=== PATIENT | male | born 1935 | race Caucasian/White ===

== ENCOUNTER → 2016-07-20 | Outpatient (CLI) | payer OTHER ==
[~2016-07-20] MED LIST: ASPCH81 PO; ATOR-26 PO; CLTP PO; LISI5TAB3 PO; METO25TA3 PO; NTRGSL/4 UT; PRLSR20 PO
--- NOTE | 2016-07-20 10:58 | DIAGNOSTIC IMAGING REPORT ---
PET/CT CLINICAL HISTORY: Lymphoma. COMPARISON STUDY PET/CT dated 04/06/2016. TECHNIQUE: One hour following the IV administration of 15.15 mCi of F-18 FDG, PET/CT examination was performed from the orbital meatal line through the bony pelvis. Noncontrast CT is performed for the purposes of anatomic correlation and attenuation correction. Note that this does not reflect a diagnostic CT examination. Images were reviewed on a separate [employer] independent workstation. Fused images were obtained. Standard uptake values reported are maximum values within the region of interest expressed in gm/mL. FINDINGS: PET FINDINGS: Head and neck: There is expected physiologic activity within the visualized brain parenchyma at the skull base and the salivary glands. There is unchanged size of a small and minimally FDG avid left cervical chain lymph node deep to the sternocleidomastoid muscle seen on image #24. This measures up to 8 mm and shows a maximum SUV of 1.4. The degree of FDG localization appears modestly improved from previous. No additional FDG avid cervical lymph nodes are identified. Thorax: Evaluation of the thorax demonstrates expected physiologic myocardial activity. There are foci of FDG localization present within both leon. There is no clear corresponding lymphadenopathy on the low-dose CT images and this is indeterminant. This demonstrates a maximum SUV of 4.7 on the left and 3.6 on the right. Foci of subcarinal activity localizes to the esophagus and likely represent salivary activity. Abdomen and pelvis: There is expected activity within the liver, spleen, kidneys, renal collecting system, and bladder. Low-level bowel activity is likely within physical limits. There is abnormal infiltrative soft tissue in the right renal hilum extending towards the right renal pelvis. Although difficult to measure, this appears unchanged from 04/06/2016. This measures a maximum of 2.2 cm in AP diameter at the renal pelvis. This is markedly FDG avid.] SUV is difficult to assessed due to adjacent excreted urinary activity but measures over 20. There is unchanged abnormal soft tissue seen anteriorly to the T9 and T10 vertebral bodies as seen on image #106. This measures 3.7 x 1.6 cm and is FDG avid with a maximum SUV of 5.8 (previously measured 3.7 x 1.7 cm with a maximum SUV of 5.6). There are new and FDG avid retroperitoneal implants as compared to 04/06/2016. A account services representative lesion is seen posterior to the ascending colon on image #162 and measures 0.8 x 2.6 cm. This is FDG avid with a maximum SUV of 3.8. An additional peritoneal lesion is seen in the left lower quadrant on image #170 measuring 2.3 x 1.4. This demonstrates a maximum SUV of 5.6. A mildly FDG avid portacaval node is seen on image 131 measures 0.8 x 1.7 cm. This demonstrates a maximum SUV of 3.3. Unenhanced CT images: Partially visualized brain parenchyma at the skull base is normal in appearance. The bony orbits are grossly intact. Orbital contents are normal in appearance noting bilateral ocular lens implants. The visualized paranasal sinuses and the mastoid air cells are clear. The salivary and thyroid glands are within normal limits. There is atherosclerotic calcification of the carotid bulbs. Mild ectasia of the ascending thoracic aorta is unchanged. This measures up to 4.5 cm. The remainder of the thoracic aorta is normal in caliber. The heart is mildly enlarged and without pericardial effusion. The coronary arteries are densely calcified. Emphysema is observed. Mild apical scarring is noted. No airspace consolidation or pleural effusion is seen. There is dependent atelectasis. A 3 mm subpleural nodule in the right middle lobe on image #98 and a 4 mm right apical nodule on image #61 are unchanged and too small for PET characterization. No concerning pulmonary lesion is identified. Small fat-containing Bochdalek hernias are again noted. A subcentimeter hypodensity in the right hepatic lobe seen on image #129 is unchanged. The unenhanced liver otherwise grossly unremarkable. There are numerous calcified splenic granulomas. The spleen is normal in size measuring up to 9 cm. The unenhanced adrenal glands are grossly normal. The pancreas is atrophic. The kidneys demonstrate cortical atrophy and are without hydronephrosis. See above under PET findings for assessment of right renal abnormality. The abdominal aorta is normal in course and caliber noting moderate to advanced atherosclerotic calcification. There is no bowel obstruction. Mild colonic fecal retention is observed. No intraperitoneal free air or abdominal ascites is identified. The prostate gland is mildly enlarged. The bladder and seminal vesicles are normal in appearance. A calcification in the midline pelvis is unchanged and of doubtful significance. There is a small fat-containing right inguinal hernia. The skeletal structures are osteopenic. No lytic or blastic lesions are identified. Degenerative change and scoliosis are noted throughout the thoracolumbar spine. IMPRESSION: 1. Overall modest progression of disease as compared to 03/29/2016 as detailed above, with new and FDG avid retroperitoneal lesions. 2. Additional lesions seen on 04/06/2016 have not significantly changed. 3. There is bilateral hilar activity with no clear lesion identified on the low-dose CT images. Hilar involvement is not excluded.. 4. The spleen is normal in size. 5. Mild cardiomegaly and emphysema. 6. Ectasia of the ascending thoracic aorta is unchanged and measures up to 4.5 cm. 7. Additional findings as above. Electronically signed by: Armen Alva M.D. 07/20/2016 10:56 AM Dictated Date/Time: 07/20/2016 10:27 AM
== END | disposition home or self-care (01) ==
LOC: C.PET 07:56
PROVIDERS: ATTEND Internal Medicine Hematology
DX: C82.53 Diffuse follicle center lymphoma, intra-abdominal lymph nodes (principal)

== ENCOUNTER → 2016-09-28 | Outpatient (CLI) | payer OTHER ==
[2016-09-28 13:53] VITALS: BP 144/91; PULSE 68; TEMP 36.7; O2SAT 98
--- NOTE | 2016-09-28 14:33 | Radiation Oncology Follow-Up ---
Radiation Oncology Follow-Up Date of Visit Sep 28, 2016. 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 Brunner is a 79-year-old gentleman who was previously diagnosed with a low- grade B-cell lymphoma involving the right retroperitoneal lymph node adjacent to the right renal hilum. The patient was initially having routine imaging done for his thoracic aortic aneurysm and he did have a scan in July 2013 which did show adenopathy in his abdomen. He did undergo an FNA biopsy of the right retroperitoneal lymph node on 09/17/2013 which did reveal a low-grade B- cell lymphoma. He did have an initial PET/CT scan (report unavailable) on 08/21 and he did have a repeat PET CT scan on 12/11/2013 which did show an interval decrease in the size and FDG avidity activity of the retrocrural and retroperitoneal lymph nodes as well as the mesenteric mass adjacent to the distal transverse colon. Dr. Shelton to discuss treatment options with the patient in the patient refused chemotherapy and elected for observation. The patient then subsequently was lost to follow-up and then recently seen again evaluation. He did have a repeat staging scan completed on 09/23/2015 which revealed an interval increase in a soft tissue mass infiltrating the right renal hilum consistent with focal lymphoma. The mass measured 4 cm in the greatest dimension and previously measured 2.4 cm in June 2014. The rest of the staging scans were essentially negative for involvement of lymphoma. Dr. Shelton saw the patient again in consultation and discussed treatment options including radiation therapy and systemic therapy. Due to the patient's multiple comorbidities, Dr. Shelton recommended consideration of radiation therapy upfront and the patient agreed with this based on his lack of interest in systemic therapy. We are now seeing the patient in consultation discuss the role of radiation therapy. Currently, the patient is doing relatively well overall. He denies any fevers, chills or night sweats. He states his energy, appetite and weight are all stable. He is able to perform all basic and advanced daily activities of living. He has no current symptoms at this point. He underwent radiation therapy to the right renal hilum from 12/08/2015 to 01/05. He received 3000 cGy. (Susan Santiago PA-C) Interim History He denies any changes in the past 6 months. He does continue to have night sweats. He describes this as his T-shirt being wet. He does not describe drenching sweats. His appetite is good and weight is stable. His had no problems with decreasing weight. Following his last visit he was sent for a PET /CT. This was performed 07/20/2016. Showed overall moderate progression of disease as compared to 03/29/2016. New and FDG avid retroperitoneal lesions. Additional lesions were seen on 04/06/2016 that have not significantly changed. There is bilateral hilar activity with no clear lesion identified on the low dose CT images. Hilar involvement is not excluded. Spleen is normal in size. Mild cardiomegaly and emphysema. Ectasia of the ascending aorta is unchanged and measures 4.5 cm. The patient was to follow-up with Dr. Shelton. He failed to keep his appointment on several occasions. Dr. Shelton now declines to see him back. He was also to see his primary care physician and was a no-show on . (Susan Santiago PA-C) Allergies Coded Allergies: No Known Allergies (Verified , 01/09/12) Home Medications Scheduled Aspirin (Aspirin Tab-Chewable *), 81 MG PO DAILY Atorvastatin (Lipitor), 1 TAB PO DAILY Calcium/Vitamin D (Caltrate 600 Plus *), 1 TAB PO DAILY Lisinopril (Zestril), 5 MG PO DAILY Metoprolol Succ (Toprol Xl) (Toprol-Xl), 12.5 MG PO DAILY Nitroglycerin (Nitrostat), 0.4 MG UT PRN Omeprazole (Prilosec), 20 MG PO DAILY Review of Systems Gastrointestinal: Symptoms: WNL Oral: Symptoms: No Problems Respiratory: Symptoms: WNL Urinary: Symptoms: Nocturia Comments: occ nocturia Skin: Symptoms: No Problems (Susan Santiago PA-C) Physical Exam Vital Signs Date Time Temp Pulse Resp B/P (MAP) Pulse Ox O2 Delivery O2 Flow Rate FiO2 09/28/16 13:53 36.7 68 20 144/91 98 Pain: Side: Bilateral Patient Pain Scale: 0 - 10 Initial Pain Intensity: 0.0 Fatigue: None General Appearance: no apparent distress Eyes: normal inspection, EOMI ENT: normal ENT inspection, hearing grossly normal Neck: supple, no adenopathy, thyroid normal Respiratory/Chest: lungs clear, no respiratory distress, no accessory muscle use Cardiovascular: regular rate, rhythm, no gallop, no murmur Abdomen: non tender, soft, no organomegaly Extremities: no pedal edema Neurologic/Psychiatric: no motor/sensory deficits, alert, normal mood/affect Skin: warm/dry (Susan Santiago PA-C) Additional Studies Patient: CRYSTAL BRUNNER Address1: [address] [place] [address] Rec: [id number] Address2: Acct ID: [id number] [facility] Zip: [place] [address] Date: 1935 Sex: M Room/Bed: Ref Phy: Remberto Lorenzo D.O. SC: C.PET Att Phy: Yves Shelton M.D. Report #: [id number] [place] Phy: Remberto Lorenzo D.O. Test: PETCTST Admit Phy: Veterinary X Ray Operator: NATASHA Interpreting Phy: Armen Alva M.D. Diagnosis: LYMPHOMA Ordering Phy: Yves Shelton M.D. Service Date: 07/20/16 Admit Date: 07/20/16 MNE: [id number] CONF: DICTATED BY: Armen Alva M.D.]] CC: Remberto Lorenzo D.O. Wolfe, David W., M.D. Endcc: [~ rep ct add3]] PET/CT CLINICAL HISTORY: Lymphoma. COMPARISON STUDY PET/CT dated 04/06/2016. TECHNIQUE: One hour following the IV administration of 15.15 mCi of F-18 FDG, PET/CT examination was performed from the orbital meatal line through the bony pelvis. Noncontrast CT is performed for the purposes of anatomic correlation and attenuation correction. Note that this does not reflect a diagnostic CT examination. Images were reviewed on a separate [employer] independent workstation. Fused images were obtained. Standard uptake values reported are maximum values within the region of interest expressed in gm/mL. FINDINGS: PET FINDINGS: Head and neck: There is expected physiologic activity within the visualized brain parenchyma at the skull base and the salivary glands. There is unchanged size of a small and minimally FDG avid left cervical chain lymph node deep to the sternocleidomastoid muscle seen on image #24. This measures up to 8 mm and shows a maximum SUV of 1.4. The degree of FDG localization appears modestly improved from previous. No additional FDG avid cervical lymph nodes are identified. Thorax: Evaluation of the thorax demonstrates expected physiologic myocardial activity. There are foci of FDG localization present within both leon. There is no clear corresponding lymphadenopathy on the low-dose CT images and this is indeterminant. This demonstrates a maximum SUV of 4.7 on the left and 3.6 on the right. Foci of subcarinal activity localizes to the esophagus and likely represent salivary activity. Abdomen and pelvis: There is expected activity within the liver, spleen, kidneys, renal collecting system, and bladder. Low-level bowel activity is likely within physical limits. There is abnormal infiltrative soft tissue in the right renal hilum extending towards the right renal pelvis. Although difficult to measure, this appears unchanged from 04/06/2016. This measures a maximum of 2.2 cm in AP diameter at the renal pelvis. This is markedly FDG avid.] SUV is difficult to assessed due to adjacent excreted urinary activity but measures over 20. There is unchanged abnormal soft tissue seen anteriorly to the T9 and T10 vertebral bodies as seen on image #106. This measures 3.7 x 1.6 cm and is FDG avid with a maximum SUV of 5.8 (previously measured 3.7 x 1.7 cm with a maximum SUV of 5.6). There are new and FDG avid retroperitoneal implants as compared to 04/06/2016. A customer sales representative lesion is seen posterior to the ascending colon on image #162 and measures 0.8 x 2.6 cm. This is FDG avid with a maximum SUV of 3.8. An additional peritoneal lesion is seen in the left lower quadrant on image #170 measuring 2.3 x 1.4. This demonstrates a maximum SUV of 5.6. A mildly FDG avid portacaval node is seen on image 131 measures 0.8 x 1.7 cm. This demonstrates a maximum SUV of 3.3. Unenhanced CT images: Partially visualized brain parenchyma at the skull base is normal in appearance. The bony orbits are grossly intact. Orbital contents are normal in appearance noting bilateral ocular lens implants. The visualized paranasal sinuses and the mastoid air cells are clear. The salivary and thyroid glands are within normal limits. There is atherosclerotic calcification of the carotid bulbs. Mild ectasia of the ascending thoracic aorta is unchanged. This measures up to 4.5 cm. The remainder of the thoracic aorta is normal in caliber. The heart is mildly enlarged and without pericardial effusion. The coronary arteries are densely calcified. Emphysema is observed. Mild apical scarring is noted. No airspace consolidation or pleural effusion is seen. There is dependent atelectasis. A 3 mm subpleural nodule in the right middle lobe on image #98 and a 4 mm right apical nodule on image #61 are unchanged and too small for PET characterization. No concerning pulmonary lesion is identified. Small fat-containing Bochdalek hernias are again noted. A subcentimeter hypodensity in the right hepatic lobe seen on image #129 is unchanged. The unenhanced liver otherwise grossly unremarkable. There are numerous calcified splenic granulomas. The spleen is normal in size measuring up to 9 cm. The unenhanced adrenal glands are grossly normal. The pancreas is atrophic. The kidneys demonstrate cortical atrophy and are without hydronephrosis. See above under PET findings for assessment of right renal abnormality. The abdominal aorta is normal in course and caliber noting moderate to advanced atherosclerotic calcification. There is no bowel obstruction. Mild colonic fecal retention is observed. No intraperitoneal free air or abdominal ascites is identified. The prostate gland is mildly enlarged. The bladder and seminal vesicles are normal in appearance. A calcification in the midline pelvis is unchanged and of doubtful significance. There is a small fat-containing right inguinal hernia. The skeletal structures are osteopenic. No lytic or blastic lesions are identified. Degenerative change and scoliosis are noted throughout the thoracolumbar spine. IMPRESSION: 1. Overall modest progression of disease as compared to 03/29/2016 as detailed above, with new and FDG avid retroperitoneal lesions. 2. Additional lesions seen on 04/06/2016 have not significantly changed. 3. There is bilateral hilar activity with no clear lesion identified on the low-dose CT images. Hilar involvement is not excluded.. 4. The spleen is normal in size. 5. Mild cardiomegaly and emphysema. 6. Ectasia of the ascending thoracic aorta is unchanged and measures up to 4.5 cm. 7. Additional findings as above. Electronically signed by: Armen Alva M.D. 07/20/2016 10:56 AM Dictated Date/Time: 07/20/2016 10:27 AM (Susan Santiago PA-C) Assessment & Plan Plan: The patient is also seen and examined by Dr. Mayer. We have advised him that he needs to follow-up with medical oncology and his primary care physician. He is currently not having any acute difficulties. An appointment will be scheduled for him to see . We are going to schedule him an appointment to see Dr. Mayer in medical oncology. We asked him to return to our office in 6 months. He may call if he has any questions or concerns in the interim. We have emphasized the importance in keeping these appointments. He stated previously Dr. Shelton had discussed the use of chemotherapy if needed. He will need to follow with medical oncology. He stated that he had missed previous appointments because he does not get reminder notifications by phone or in the mail. (Susan Santiago PA-C) I agree with note created by Susan Santiago PA-C. I reviewed the patient's chart and information with her. I have examined and evaluated the patient. I reviewed relevant clinical information and answered the patient's and/or family' s questions. (Veeral. Mayer MD) Total Time In Follow-Up We spent 25 minutes speaking to the patient and performing examination. I spent 15 minutes reviewing information in completing this note. (Susan Santiago PA-C) I spent 15 minutes examining and counseling the patient. (Veeral. Mayer MD) Copy To Marcial Mayer M.D.; Remberto Lorenzo D.O.
== END | disposition home or self-care (01) ==
LOC: C.ONC 13:42
PROVIDERS: ATTEND Physician Assistant Medical
DX: Z08 Encounter for follow-up examination after completed treatment for malignant neoplasm (principal); Z92.3 Personal history of irradiation; Z85.72 Personal history of non-Hodgkin lymphomas

== ENCOUNTER → 2017-03-30 | Outpatient (CLI) | payer OTHER ==
[2017-03-30 13:11] VITALS: BP 152/76; PULSE 50; TEMP 36.5; O2SAT 98
--- NOTE | 2017-03-30 13:41 | Radiation Oncology Follow-Up ---
Radiation Oncology Follow-Up Date of Visit Mar 30, 2017. 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 Brunner was previously diagnosed with a low-grade B-cell lymphoma involving the right retroperitoneal lymph node adjacent to the right renal hilum. The patient was initially having routine imaging done for his thoracic aortic aneurysm and he did have a scan in July 2013 which did show adenopathy in his abdomen. He did undergo an FNA biopsy of the right retroperitoneal lymph node on 09/17/2013 which did reveal a low-grade B-cell lymphoma. He did have an initial PET/CT scan (report unavailable) on 08/21/2013 and he did have a repeat PET CT scan on 12/11/2013 which did show an interval decrease in the size and FDG avidity activity of the retrocrural and retroperitoneal lymph nodes as well as the mesenteric mass adjacent to the distal transverse colon. Dr. Shelton to discuss treatment options with the patient in the patient refused chemotherapy and elected for observation. The patient then subsequently was lost to follow- up and then recently seen again evaluation. He did have a repeat staging scan completed on 09/23/2015 which revealed an interval increase in a soft tissue mass infiltrating the right renal hilum consistent with focal lymphoma. The mass measured 4 cm in the greatest dimension and previously measured 2.4 cm in June 2014. The rest of the staging scans were essentially negative for involvement of lymphoma. Dr. Shelton saw the patient again in consultation and discussed treatment options including radiation therapy and systemic therapy. Due to the patient's multiple comorbidities, Dr. Shelton recommended consideration of radiation therapy upfront and the patient agreed with this based on his lack of interest in systemic therapy. We are now seeing the patient in consultation discuss the role of radiation therapy. Currently, the patient is doing relatively well overall. He denies any fevers, chills or night sweats. He states his energy, appetite and weight are all stable. He is able to perform all basic and advanced daily activities of living. He has no current symptoms at this point. He underwent radiation therapy to the right renal hilum from 12/08/2015 to 01/05. He received 3000 cGy. Interim History He's been doing well over the past 6 months. He'll have some feelings of warmth at night but denies any problems with sweating. His appetite is good and weight is stable. He is now followed by Dr. Mayer in medical oncology. He saw him in October 2016. He is currently on observation. He had recheck laboratory studies that were stable. He denies any flank pain. He has had no abdominal pain. He does have some mild low back pain. This occurs in the morning when he first wakes up. The pain can be around level IV. This resolves within 15-20 minutes. He does not require any [id number] prescriptive pain medications. He is very active he continues to work outside. 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 Allergies Coded Allergies: No Known Allergies (Verified , 01/09/12) Home Medications Scheduled Aspirin (Aspirin Tab-Chewable *), 81 MG PO DAILY Atorvastatin (Lipitor), 1 TAB PO DAILY Calcium/Vitamin D (Caltrate 600 Plus *), 1 TAB PO DAILY Lisinopril (Zestril), 5 MG PO DAILY Metoprolol Succ (Toprol Xl) (Toprol-Xl), 12.5 MG PO DAILY Nitroglycerin (Nitrostat), 0.4 MG UT PRN Omeprazole (Prilosec), 20 MG PO DAILY Review of Systems Gastrointestinal: Symptoms: WNL Oral: Symptoms: No Problems Respiratory: Symptoms: WNL Urinary: Symptoms: WNL Skin: Symptoms: No Problems Physical Exam Vital Signs Date Time Temp Pulse Resp B/P (MAP) Pulse Ox O2 Delivery O2 Flow Rate FiO2 03/30/17 13:11 36.5 50 18 152/76 98 Fatigue: None General Appearance: no apparent distress Eyes: normal inspection, EOMI ENT: normal ENT inspection, hearing grossly normal Neck: no adenopathy, thyroid normal Respiratory/Chest: lungs clear, no respiratory distress, no accessory muscle use Cardiovascular: regular rate, rhythm, no gallop, no murmur Abdomen: non tender, soft, no organomegaly Extremities: no pedal edema Neurologic/Psychiatric: no motor/sensory deficits, alert, normal mood/affect Skin: warm/dry Pain Management Patient Reports Pain: Yes Pain Location: Back Patient Preferred Pain Scale: 0 - 10 Initial Pain Intensity: 4 Pain Management Plan He has low back pain when he first gets up in the morning. This can be of level IV. This resolves within 15-20 minutes. The pain does not require any [id number] or prescriptive pain medications. Laboratory Laboratory Results: were reviewed Laboratory Comments: Discussed in the interim history Pathology Pathology Results: not applicable Imaging Imaging Studies: not applicable Assessment & Plan Plan: Patient's also seen and examined by Dr. Mayer. He'll continue follow-up with Dr. Mayer at medical oncology. He continues follow-up with his primary care physician. He'll be returning to see Dr. Mayer and medical oncology in approximately April with recheck laboratory studies. We asked him to return to our office in 1 year. He may call if she has any questions or concerns in the interim. Assessment & Plan (Attending) ADDENDUM: I agree with note created by Susan Santiago PA-C. I reviewed the patient's chart and information with her. I have examined and evaluated the patient. I reviewed relevant clinical information and answered the patient's and /or family's questions. 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 I spent 15 minutes reviewing information in completing this note. Total Time (Attending) In Follow-Up I spent 15 minutes examining and counseling the patient. 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
== END | disposition home or self-care (01) ==
LOC: C.ONC 12:58
PROVIDERS: ATTEND Physician Assistant Medical
DX: Z08 Encounter for follow-up examination after completed treatment for malignant neoplasm (principal); Z92.3 Personal history of irradiation; Z85.72 Personal history of non-Hodgkin lymphomas

== ENCOUNTER 2018-06-09 03:43 | Inpatient (IN) ==
[2018-06-09 04:36] LABS: Basophils # (auto) 0.03 K/uL (0-0.2); Basophils % (auto) 0.4 %; Eosinophils # (auto) 0.34 K/uL (0-0.5); Eosinophils % (auto) 4.4 %; Hematocrit (blood only) 35.8 % (42-52); Hemoglobin 12.4 g/dL (14.0-18.0); Immature Granulocytes # (auto) 0.02 K/uL (0.00-0.02); Immature Granulocytes % (auto) 0.3 %; Lymphocytes # (auto) 1.52 K/uL (1.2-3.4); Lymphocytes % (auto) 19.7 %; Mean Corpuscular Hgb Conc 34.6 g/dL (32-36); Mean Corpuscular Volume 89.9 fL (80-100); Mean Platelet Volume 10.7 fL (7.4-10.4); Monocytes % (auto) 11.7 %; Neutrophils % (auto) 63.5 %; Platelet Count 206 K/uL (130-400); RDW Coefficient of Variation 12.6 % (11.5-14.5); RDW Standard Deviation 41.2 fL (36.4-46.3); Red Blood Count 3.98 M/uL (4.7-6.1); White Blood Count 7.71 K/uL (4.8-10.8)
[2018-06-09] MEDS ORDERED: ALUMINUM/MAGNESIUM SUSP 18 ML, LIDOCAINE HCL VISCOUS 2% 6 ML, BARCODE IDENTIFIER 1 EA PO ONE (04:36)
[2018-06-09] MEDS ORDERED: ALUMINUM/MAGNESIUM SUSP 30 ML UDC ONE (04:40)
[2018-06-09] MEDS ORDERED: LIDOCAINE HCL VISCOUS SOLN 2% 15 ML UDC ONE (04:40)
[2018-06-09 04:50] LABS: Alanine Aminotransferase 23 U/L (12-78); Albumin Level 3.7 gm/dl (3.4-5.0); Aspartate Aminotransferase 17 U/L (15-37); BUN Creatinine Ratio 8.9 (10-20); Blood Urea Nitrogen 12 mg/dl (7-18); Calcium 8.4 mg/dl (8.5-10.1); Carbon Dioxide 26 mmol/L (21-32); Chloride 108 mmol/L (98-107); Creatinine Clr Calc Pharmacy 41.8 ml/min; Est GFR (African American) 57.2; Est GFR (Non-African American) 49.3; Glucose 111 mg/dl (70-99); Potassium 3.6 mmol/L (3.5-5.1); Sodium 140 mmol/L (136-145)
[2018-06-09 04:55] LABS: Albumin Globulin Ratio 1.1 (0.9-2); Alkaline Phosphatase 70 U/L (45-117); Bilirubin,Total 0.5 mg/dl (0.2-1); Globulin 3.5 gm/dl (2.5-4.0); Total Protein 7.2 gm/dl (6.4-8.2); Troponin I < 0.015 ng/ml (0-0.045)
[2018-06-09] MEDS ORDERED: NITROGLYCERIN SL 0.4 MG/TAB TAB SL STA (05:11)
[2018-06-09] MEDS ORDERED: OPTIRAY 320 125ml IV PRN (05:31)
[2018-06-09] MEDS ORDERED: MoRPHine SULFATE 4 MG/ML 1 ML CARP\\VIAL IV STA (06:14)
[2018-06-09] MEDS ORDERED: ONDANSETRON INJ 2 MG/ML 2 ML VIAL IV STA (06:14)
[2018-06-09] MEDS ORDERED: CALCIUM GLUCONATE 10% 1,000 MG in SODIUM CHLORIDE 0.9% 50 ML IV STA (06:19)
[2018-06-09] MEDS ORDERED: LISINOPRIL 5 MG TAB PO SCH (06:25)
--- NOTE | 2018-06-09 06:50 | XRay Report ---
XR chest 1V portable CLINICAL HISTORY: Chest Pain dyspnea COMPARISON STUDY: 04/13/2007 FINDINGS: Mild cardiomegaly. Slight prominence of pulmonary vasculature. No focal infiltrate. Diaphra gms are smooth. IMPRESSION: Mild pulmonary vascular congestion. The above report was generated using voice recognition software. It may contain grammatical, syntax or spelling errors. Electronically signed by: Hayes Miller M.D. 06/09/2018 6:49 AM
[2018-06-09 06:58] LABS: Magnesium 2.1 mg/dl (1.8-2.4)
[2018-06-09] MEDS ORDERED: MoRPHine SULFATE 2 MG/ML CARP IV STA (07:04)
[2018-06-09] MEDS ORDERED: Heparin IV Low Dose WITH Bolus IV STA (07:04)
--- NOTE | 2018-06-09 07:04 | History & Physical Report ---
Date of Service June 09, 2018 Assessment & Plan (1) Chest pain: Atypical Likely noncardiac given lack of response to nitroglycerin Possibly musculoskeletal given reproducible tenderness Rule out intra-abdominal pathology (possible cholecystitis on initial CT chest read) given abdominal tenderness History CAD sp stenting Hypertensive urgency secondary to discomfort history TAA, stable measurement as of today's imaging history non-Hodgkin's lymphoma status post radiation (patient refused chemotherapy) chronic anemia, hemoglobin at baseline past tobacco abuse OBS Medical telemetry for uncontrolled BP Analgesia, facilitate lisinopril, may need dose titration CT abdomen pelvis RE abdominal pain N.p.o. sips until cholecystitis ruled out DVT prophylaxis. SCDs until cholecystitis ruled out as patient may need surgery. Lovenox 30 mg subcutaneous daily once cholecystitis ruled out DNR Patient's daughter requesting updates from providers. Ms. Teressa Jordan, contact #[phone]. History of Present Illness Chief Complaint: Chest pain Primary Care Provider: Remberto Lorenzo, History obtained from patient, family, and records. 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 Recent confinement April 2007 for chest pain. Stress echo negative. Patient woke up last night with substernal pain going to the back without shortness of breath, no unusual cough symptoms, different from heart attack in the past which presented as indigestion as per patient. No relief with nitroglycerin taken at home and given at the emergency room. No fever no chills no nausea no vomiting good bowel movement, no unusual fluid retention. 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 Medical History as above TTE March 2018 EF 55-59%. Showed mild aortic valve sclerosis, trace aortic regurgitation, mild tricuspid regurgitation, aortic root is borderline dilated 3.8 cm. 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 Surgical History : Eye surgery Family History : Leukemia, stroke Personal/Social history : Past tobacco abuse no EtOH intake, retired [employer] employee Allergies Allergy/AdvReac Type Severity Reaction Status Date / Time No Known Allergies Allergy Unknown Verified 01/09/12 13:20 Home Medications Home Medications Medication Instructions Recorded Confirmed Type aspirin 81 mg PO DAILY 06/09/18 06/09/18 History atorvastatin 80 mg PO DAILY 06/09/18 06/09/18 History calcium carbonate-vitamin D3 1 cap PO DAILY 06/09/18 06/09/18 History [Calcium 600 + D(3)] lisinopril 5 mg PO DAILY 06/09/18 06/09/18 History metoprolol succinate [Toprol XL] 12.5 mg PO DAILY 06/09/18 06/09/18 History nitroglycerin [Nitrostat] 0.4 mg SUBLINGUAL DIRECTED PRN 06/09/18 06/09/18 History omeprazole 20 mg PO DAILY 06/09/18 06/09/18 History Past Med/Surg History Medical History Hypertension (Chronic) Heart disease (Chronic) Surgical History H/O heart surgery Social History Preferred Language: Uzbek Communication Ability: Effective Communication Ability Comment: blind left eye, 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 Equity Trader Required: No Beliefs That Will Affect Care: None Current Living Situation: Alone current occupational status: retired Other Information That Helps Us Care for You: No Feels Safe at Home: Yes Safety Concerns: Feels Safe At This Time Smoking Status: Former smoker Hx Alcohol Use: No Hx Substance Use: No Review of Systems As per HPI, all 10 systems reviewed, all other ROS negative Physical Exam Vital Signs (Past 24 Hours): Last Vital Signs Temp 36.7 C 06/09/18 03:50 Pulse 63 06/09/18 06:06 Resp 20 06/09/18 06:06 BP 175/99 H 06/09/18 06:06 Pulse Ox 95 06/09/18 06:06 Physical Exam: GENERAL: Comfortable, pleasant, slight of hearing, no respiratory distress SKIN: Pallor , warm HEENT: Pale palpebral conjunctivae, no ptosis, dry buccal mucosa NECK : Supple, no tenderness CHEST : CTA, left anterior chest wall tenderness HEART : RRR, no obvious murmurs ABDOMEN: Some distention, upper abdominal/left abdominal tenderness EXTREMITIES : No LE swelling/tenderness, no other conspicuous deformities noted NEUROLOGIC : Coherent, vision not assessed, no facial asymmetry, no other gross focality Results & Data Laboratory Results Laboratory Results WBC 7.71 K/uL (4.8-10.8) 06/09/18 03:50 RBC 3.98 M/uL (4.7-6.1) L 06/09/18 03:50 Hgb 12.4 g/dL (14.0-18.0) L 06/09/18 03:50 Hct 35.8 % (42-52) L 06/09/18 03:50 MCV 89.9 fL (80-100) 06/09/18 03:50 MCH 31.2 pg (25-34) 06/09/18 03:50 MCHC 34.6 g/dL (32-36) 06/09/18 03:50 RDW Std Deviation 41.2 fL (36.4-46.3) 06/09/18 03:50 RDW Coeff of Roderick 12.6 % (11.5-14.5) 06/09/18 03:50 Plt Count 206 K/uL (130-400) 06/09/18 03:50 MPV 10.7 fL (7.4-10.4) H 06/09/18 03:50 Immature Gran % (Auto) 0.3 % 06/09/18 03:50 Neut % (Auto) 63.5 % 06/09/18 03:50 Lymph % (Auto) 19.7 % 06/09/18 03:50 [place] % (Auto) 11.7 % 06/09/18 03:50 Eos % (Auto) 4.4 % 06/09/18 03:50 Baso % (Auto) 0.4 % 06/09/18 03:50 Immature Gran # (Auto) 0.02 K/uL (0.00-0.02) 06/09/18 03:50 Neut # (Auto) 4.90 K/uL (1.4-6.5) 06/09/18 03:50 Lymph # (Auto) 1.52 K/uL (1.2-3.4) 06/09/18 03:50 [place] # (Auto) 0.90 K/uL (0.11-0.59) H 06/09/18 03:50 Eos # (Auto) 0.34 K/uL (0-0.5) 06/09/18 03:50 Baso # (Auto) 0.03 K/uL (0-0.2) 06/09/18 03:50 Sodium 140 mmol/L (136-145) 06/09/18 03:50 Potassium 3.6 mmol/L (3.5-5.1) 06/09/18 03:50 Chloride 108 mmol/L (98-107) H 06/09/18 03:50 Carbon Dioxide 26 mmol/L (21-32) 06/09/18 03:50 Anion Gap 6.0 (3-11) 06/09/18 03:50 BUN 12 mg/dl (7-18) 06/09/18 03:50 Creatinine 1.34 mg/dl (0.6-1.4) 06/09/18 03:50 Est Cr Clr Drug Dosing 41.8 ml/min 06/09/18 03:50 Est GFR ( Amer) 57.2 06/09/18 03:50 Est GFR (Non-Af Amer) 49.3 06/09/18 03:50 BUN/Creatinine Ratio 8.9 (10-20) L 06/09/18 03:50 Glucose 111 mg/dl (70-99) H 06/09/18 03:50 Calcium 8.4 mg/dl (8.5-10.1) L 06/09/18 03:50 Magnesium 2.1 mg/dl (1.8-2.4) 06/09/18 03:50 Total Bilirubin 0.5 mg/dl (0.2-1) 06/09/18 03:50 AST 17 U/L (15-37) 06/09/18 03:50 ALT 23 U/L (12-78) 06/09/18 03:50 Alkaline Phosphatase 70 U/L (45-117) 06/09/18 03:50 Troponin I < 0.015 ng/ml (0-0.045) 06/09/18 03:50 Total Protein 7.2 gm/dl (6.4-8.2) 06/09/18 03:50 Albumin 3.7 gm/dl (3.4-5.0) 06/09/18 03:50 Globulin 3.5 gm/dl (2.5-4.0) 06/09/18 03:50 Albumin/Globulin Ratio 1.1 (0.9-2) 06/09/18 03:50 Lipase 110 U/L (73-393) 06/09/18 03:50 TSH 6.820 uIu/ml (0.300-4.500) H 06/09/18 03:50 Diagnostic Findings CTA chest official read: 1. 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 2. No evidence for dissection. 3. Basilar bronchovascular congestion. 4. Mild gallbladder distention with several small gallstones. (No left subclavian artery intraluminal thrombus as initially reported.) EKG as per my interpretation rate 55, sinus bradycardia, first-degree block, no ischemia, LVH
--- NOTE | 2018-06-09 07:08 | CT Scan Report ---
CT angio chest dissec wo/w con CT DOSE: 731.02 mGy.cm HISTORY: Chest pain eval for aortic dissection TECHNIQUE: Multiaxial CT images of the chest, abdomen, and pelvis were performed both before and afte r the intravenous administration of contrast to evaluate the aorta. Maximal intensity projection imag es were also obtained. A dose lowering technique was utilized adhering to the principles of ALARA. COMPARISON STUDY: None. FINDINGS: 4 cm diameter of the a sending aorta. No evidence for dissection. Descending thoracic aorta shows minimal atherosclerotic change. Moderate prominence of pulmonary vasculature. Bibasilar bronch ovascular congestion. No well-defined focal infiltrate. No significant mediastinal or hilar adenopath y. Several gallstones within a mildly distended gallbladder. IMPRESSION: 1. 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 2. No evidence for dissection. 3. Basilar bronchovascular congestion. 4. Mild gallbladder distention with several small gallstones. The above report was generated using voice recognition software. It may contain grammatical, syntax or spelling errors. Electronically signed by: Hayes Miller M.D. 06/09/2018 7:07 AM
[2018-06-09] MEDS ORDERED: ACETAMINOPHEN 325 MG TAB PO PRN (07:14)
[2018-06-09] MEDS ORDERED: TRAMADOL HCL 50 MG TABLET PO PRN (07:14)
[2018-06-09] MEDS ORDERED: MoRPHine SULFATE 4 MG/ML 1 ML CARP\\VIAL IV PRN (07:14)
[2018-06-09] MEDS ORDERED: LACTATED RINGER'S 1,000 ML IV SCH ×2 (07:15→10:00)
--- NOTE | 2018-06-09 07:40 | Emergency Department Note ---
Entered by Indira Bonilla acting as a scribe for Gabriela Baker DO History of Present Illness General Chief complaint: Chest Pain Stated complaint: CHEST PAIN Time Seen by Provider: 06/09/18 04:08 Source: patient and family (daughter) History of Present Illness Onset (ago): day(s) 1 Location: chest Pain Consistency: + other (worsening) Maximum Pain Intensity: 6 Relieved By: + none (nitroglycerin to no relief) Associated symptoms: + shortness of breath (mild); no diaphoresis and no nausea/vomiting The patient is a 82 year old M who presents to the Emergency Room with complaints of worsening chest pain starting 1 day ago. The patients daughter states that the patient called her stating that he had chest pain. She notes that she gave the patient nitroglycerin but the patient reports no relief. She states that she was told to bring the patient to the ED if the patient has any pain. The patient notes that he has a history of heart problems and heart artery problems. He adds that that his last heart attack was in 2001. He notes that during his last heart attack, he was at work and was having heartburn after eating a [employer] cup. He states that he currently has mild shortness of breath. He denies having nausea and sweating. Home Medications Home Medications Medication Instructions Recorded Confirmed Type aspirin 81 mg PO DAILY 06/09/18 06/09/18 History atorvastatin 80 mg PO DAILY 06/09/18 06/09/18 History calcium carbonate-vitamin D3 1 cap PO DAILY 06/09/18 06/09/18 History [Calcium 600 + D(3)] lisinopril 5 mg PO DAILY 06/09/18 06/09/18 History metoprolol succinate [Toprol XL] 12.5 mg PO DAILY 06/09/18 06/09/18 History nitroglycerin [Nitrostat] 0.4 mg SUBLINGUAL DIRECTED PRN 06/09/18 06/09/18 History omeprazole 20 mg PO DAILY 06/09/18 06/09/18 History Allergies Allergy/AdvReac Type Severity Reaction Status Date / Time No Known Allergies Allergy Unknown Verified 01/09/12 13:20 Past Med/Surg History Medical History Hypertension (Chronic) Heart disease (Chronic) Surgical History H/O heart surgery Social History Preferred Language: [place] Islander Current Living Situation: Alone current occupational status: retired Feels Safe at Home: Yes Smoking Status: Never smoker Hx Alcohol Use: No Review of Systems See HPI for pertinent positives & negatives. and A total of 10 systems reviewed and were otherwise negative Physical Exam Vital Signs Vital Signs - 24 hr 06/09/18 03:49 06/09/18 03:50 06/09/18 03:52 Temperature 36.7 C Temperature Source Oral Sepsis Recent Fever Within 48 Hours No Sepsis New/Unexplained Change in Mental Status No Sepsis Action Taken by Nursing No Action Required Pulse Rate 57 L 57 L 56 L Pulse Rate [Finger] Pulse Rate from SpO2 Sensor 57 L 56 L Respiratory Rate 16 17 27 H Respiratory Effort / Characteristics Non-Labored Spontaneous Respiratory Depth Normal Blood Pressure 180/96 H 180/96 H Blood Pressure [Left Arm] Blood Pressure Mean 124 124 Blood Pressure Mean [Left Arm] Pulse Oximetry 96 95 96 Oxygen Delivery Method Room Air Oxygen Flow Rate 06/09/18 04:00 06/09/18 04:15 06/09/18 04:28 Temperature Temperature Source Sepsis Recent Fever Within 48 Hours Sepsis New/Unexplained Change in Mental Status Sepsis Action Taken by Nursing Pulse Rate 55 L 53 L Pulse Rate [Finger] Pulse Rate from SpO2 Sensor 56 L 55 L Respiratory Rate 26 H 27 H Respiratory Effort / Characteristics Respiratory Depth Blood Pressure Blood Pressure [Left Arm] Blood Pressure Mean Blood Pressure Mean [Left Arm] Pulse Oximetry 96 98 97 Oxygen Delivery Method Room Air Oxygen Flow Rate 97 06/09/18 04:30 06/09/18 04:42 06/09/18 04:45 Temperature Temperature Source Sepsis Recent Fever Within 48 Hours Sepsis New/Unexplained Change in Mental Status Sepsis Action Taken by Nursing Pulse Rate 54 L 57 L 56 L Pulse Rate [Finger] 56 L Pulse Rate from SpO2 Sensor 54 L 55 L 57 L Respiratory Rate 18 24 24 Respiratory Effort / Characteristics Respiratory Depth Blood Pressure 190/106 H Blood Pressure [Left Arm] 190/106 H Blood Pressure Mean 134 Blood Pressure Mean [Left Arm] 134 Pulse Oximetry 97 93 96 Oxygen Delivery Method Room Air Oxygen Flow Rate 06/09/18 05:00 06/09/18 05:02 06/09/18 05:06 Temperature Temperature Source Sepsis Recent Fever Within 48 Hours Sepsis New/Unexplained Change in Mental Status Sepsis Action Taken by Nursing Pulse Rate 60 58 L Pulse Rate [Finger] 62 Pulse Rate from SpO2 Sensor 64 61 Respiratory Rate 17 15 20 Respiratory Effort / Characteristics Respiratory Depth Blood Pressure 190/97 H Blood Pressure [Left Arm] 190/97 H Blood Pressure Mean 128 Blood Pressure Mean [Left Arm] 128 Pulse Oximetry 95 96 94 Oxygen Delivery Method Room Air Oxygen Flow Rate 06/09/18 05:15 06/09/18 05:30 06/09/18 05:32 Temperature Temperature Source Sepsis Recent Fever Within 48 Hours Sepsis New/Unexplained Change in Mental Status Sepsis Action Taken by Nursing Pulse Rate 58 L Pulse Rate [Finger] 62 Pulse Rate from SpO2 Sensor 56 L 63 Respiratory Rate 22 20 Respiratory Effort / Characteristics Respiratory Depth Blood Pressure Blood Pressure [Left Arm] 202/95 H Blood Pressure Mean Blood Pressure Mean [Left Arm] 130 Pulse Oximetry 95 96 95 Oxygen Delivery Method Room Air Oxygen Flow Rate 06/09/18 05:33 06/09/18 05:36 06/09/18 05:40 Temperature Temperature Source Sepsis Recent Fever Within 48 Hours Sepsis New/Unexplained Change in Mental Status Sepsis Action Taken by Nursing Pulse Rate 62 61 Pulse Rate [Finger] 62 Pulse Rate from SpO2 Sensor 62 61 Respiratory Rate 22 22 20 Respiratory Effort / Characteristics Non-Labored Respiratory Depth Normal Blood Pressure 202/95 H 187/92 H Blood Pressure [Left Arm] 163/87 H Blood Pressure Mean 130 123 Blood Pressure Mean [Left Arm] 112 Pulse Oximetry 96 93 92 Oxygen Delivery Method Room Air Oxygen Flow Rate 06/09/18 05:41 06/09/18 05:45 06/09/18 05:46 Temperature Temperature Source Sepsis Recent Fever Within 48 Hours Sepsis New/Unexplained Change in Mental Status Sepsis Action Taken by Nursing Pulse Rate 62 59 L 56 L Pulse Rate [Finger] Pulse Rate from SpO2 Sensor 62 58 L 56 L Respiratory Rate 21 18 21 Respiratory Effort / Characteristics Respiratory Depth Blood Pressure 163/87 H 157/91 H Blood Pressure [Left Arm] Blood Pressure Mean 112 113 Blood Pressure Mean [Left Arm] Pulse Oximetry 92 94 90 Oxygen Delivery Method Oxygen Flow Rate 06/09/18 06:00 06/09/18 06:01 06/09/18 06:06 Temperature Temperature Source Sepsis Recent Fever Within 48 Hours Sepsis New/Unexplained Change in Mental Status Sepsis Action Taken by Nursing Pulse Rate 57 L 57 L Pulse Rate [Finger] 63 Pulse Rate from SpO2 Sensor 59 L 55 L Respiratory Rate 21 21 20 Respiratory Effort / Characteristics Respiratory Depth Blood Pressure 175/99 H Blood Pressure [Left Arm] 175/99 H Blood Pressure Mean 124 Blood Pressure Mean [Left Arm] 124 Pulse Oximetry 95 96 95 Oxygen Delivery Method Room Air Oxygen Flow Rate 06/09/18 06:15 06/09/18 06:16 06/09/18 06:30 Temperature Temperature Source Sepsis Recent Fever Within 48 Hours Sepsis New/Unexplained Change in Mental Status Sepsis Action Taken by Nursing Pulse Rate 65 57 L 57 L Pulse Rate [Finger] Pulse Rate from SpO2 Sensor 58 L 56 L 58 L Respiratory Rate 20 23 18 Respiratory Effort / Characteristics Respiratory Depth Blood Pressure 165/90 H Blood Pressure [Left Arm] Blood Pressure Mean 115 Blood Pressure Mean [Left Arm] Pulse Oximetry 96 94 92 Oxygen Delivery Method Oxygen Flow Rate 06/09/18 06:31 06/09/18 06:45 06/09/18 06:46 Temperature Temperature Source Sepsis Recent Fever Within 48 Hours Sepsis New/Unexplained Change in Mental Status Sepsis Action Taken by Nursing Pulse Rate 57 L 60 60 Pulse Rate [Finger] Pulse Rate from SpO2 Sensor 58 L 60 60 Respiratory Rate 19 22 23 Respiratory Effort / Characteristics Respiratory Depth Blood Pressure 161/82 H 169/88 H Blood Pressure [Left Arm] Blood Pressure Mean 108 115 Blood Pressure Mean [Left Arm] Pulse Oximetry 90 93 95 Oxygen Delivery Method Oxygen Flow Rate 06/09/18 07:00 06/09/18 07:01 06/09/18 07:15 Temperature Temperature Source Sepsis Recent Fever Within 48 Hours Sepsis New/Unexplained Change in Mental Status Sepsis Action Taken by Nursing Pulse Rate 61 61 60 Pulse Rate [Finger] Pulse Rate from SpO2 Sensor 59 L 61 61 Respiratory Rate 29 H 21 21 Respiratory Effort / Characteristics Respiratory Depth Blood Pressure 167/91 H 187/96 H Blood Pressure [Left Arm] Blood Pressure Mean 116 126 Blood Pressure Mean [Left Arm] Pulse Oximetry 96 95 91 Oxygen Delivery Method Oxygen Flow Rate 06/09/18 07:30 06/09/18 07:31 06/09/18 07:33 Temperature Temperature Source Sepsis Recent Fever Within 48 Hours Sepsis New/Unexplained Change in Mental Status Sepsis Action Taken by Nursing Pulse Rate Pulse Rate [Finger] 57 L Pulse Rate from SpO2 Sensor 62 61 Respiratory Rate 24 Respiratory Effort / Characteristics Non-Labored Respiratory Depth Normal Blood Pressure 189/92 H Blood Pressure [Left Arm] 190/106 H Blood Pressure Mean 124 Blood Pressure Mean [Left Arm] 134 Pulse Oximetry 96 97 93 Oxygen Delivery Method Room Air Oxygen Flow Rate HEENT: Head - normocephalic and atraumatic Pupils are equal, round, and reactive to light. 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 Extraocular eye muscles are intact, and sclera are anicteric. Nose - moist nasal mucosa without discharge. Mouth - moist buccal mucosa. Oropharynx is nonerythematous and there is no tonsillar exudate or edema noted. Neck: Supple; no JVD, nuchal rigidity, cervical lymphadenopathy, or auscultated bruits. Heart: Regular rate and rhythm. There is a normal S1 and S2 with no murmurs, clicks, or gallops appreciated. Lungs: Clear to auscultation bilaterally with no wheezes, rales, or rhonchi. Abdomen: Soft and nondistended, with good bowel sounds. Pain with palpation of epigastric region. There are no palpable pulsatile masses or hepatosplenomegaly. There is no guarding, rigidity, or rebound noted. Extremities: No evidence of cyanosis, clubbing, or edema. There are easily palpable peripheral pulses. Skin: warm and dry with good turgor and no rashes. Course 0420: Past medical records reviewed. The patient was evaluated in room A3, and a complete history and physical examination were performed. An IV lock was initiated and labs were drawn as above. A twelve-lead EKG was obtained as described above. The patient was observed on the satellite project site monitor and pulse oximeter. 0440: Al Hydrox/Mg Hydrox/Simethicone 18 ml/ Lidocaine HCl 6 ml/ BARCODE IDENTIFIER 1 ea 0 ml PO 0510: The patient did not get any relief from the GI cocktail. He reports that he vomited from the cocktail. The patient states that he is having increased chest discomfort. The patient is going to get a CTA chest. 0532: Nitroglycerin (Nitrostat) 0.4 mg SL 0610: I re-checked the patient and updated him on his test results. The patient states that he has a history of aneurysms through the [employer] system. The patient is going to get pain medications. 0619: Ondansetron HCl (Zofran) 4 mg IV 0620: Morphine Sulfate (Morphine Sulfate) 4 mg IV 0619: I reviewed the patient's case with [facility] He will evaluate the patient for further management. 0636: I reviewed medical records from [facility] and CT chest from 09/2015 showed a thoracic aneurysm measuring 4.2 cm. Echocardiogram from 03/2018, showed a thoracic aneurysm measuring 4.7 cm. Consultations Consultation #1: I reviewed the patient's case with Dr[facility] He will evaluate the patient for further management. Time: 06:19 Administered Medications Ioversol (Optiray 320 125ml) 119 ml IV ONCE PRN PRN Reason: Interaction Checking Stop: 06/13/18 05:30 Last Admin: 06/09/18 05:31 Dose: 119 ml Documented by: [id number] Lisinopril (Zestril) 5 mg PO QAM [facility] Stop: 07/09/18 06:24 Last Admin: 06/09/18 07:20 Dose: 5 mg Documented by: [id number] Discontinued Medications Al Hydrox/Mg Hydrox/Simethicone (Maalox) Confirm Administered Dose 30 ml .ROUTE .STK-MED ONE Stop: 06/09/18 04:41 Last Admin: 06/09/18 04:45 Dose: Not Given Documented by: [id number] Al Hydrox/Mg Hydrox/Simethicone 18 ml/ Lidocaine HCl 6 ml/ BARCODE IDENTIFIER 1 ea 0 ml PO ONE ONE Stop: 06/09/18 04:37 Last Admin: 06/09/18 04:44 Dose: 18 ml Documented by: [id number] Calcium Gluconate 1,000 mg/ (Sodium Chloride) 60 mls @ 240 mls/hr IV NOW STA Stop: 06/09/18 06:33 Last Admin: 06/09/18 07:08 Dose: 240 mls/hr Documented by: [id number] Lidocaine HCl (Viscous Lidocaine 2%) Confirm Administered Dose 15 ml .ROUTE .STK-MED ONE Stop: 06/09/18 04:41 Last Admin: 06/09/18 04:45 Dose: Not Given Documented by: [id number] Morphine Sulfate (Morphine Sulfate) 4 mg IV NOW STA Stop: 06/09/18 06:15 Last Admin: 06/09/18 06:20 Dose: 4 mg Documented by: [id number] Morphine Sulfate (Morphine Sulfate) 2 mg IV NOW STA Stop: 06/09/18 07:05 Last Admin: 06/09/18 07:20 Dose: 2 mg Documented by: [id number] Nitroglycerin (Nitrostat) 0.4 mg SL NOW STA Stop: 06/09/18 05:12 Last Admin: 06/09/18 05:32 Dose: 0.4 mg Documented by: [id number] Ondansetron HCl (Zofran) 4 mg IV NOW STA Stop: 06/09/18 06:15 Last Admin: 06/09/18 06:19 Dose: 4 mg Documented by: [id number] Medical Decision Making Differential Diagnosis Differential Diagnosis includes: GERD, aortic dissection, angina, acute coronary syndrome Medical Records Attestation: I reviewed the patient's medical records. Home Medications Current Medication List: was personally reviewed by me Laboratory Data Attestation: I reviewed the patient's lab results. Result diagrams: 06/09/18 03:50 06/09/18 03:50 Lab Results 06/09/18 06/09/18 06/09/18 Range/Units 03:50 03:50 03:50 WBC 7.71 (4.8-10.8) K/uL RBC 3.98 L (4.7-6.1) M/uL Hgb 12.4 L (14.0-18.0) g/dL Hct 35.8 L (42-52) % MCV 89.9 (80-100) fL MCH 31.2 (25-34) pg MCHC 34.6 (32-36) g/dL RDW Std Deviation 41.2 (36.4-46.3) fL RDW Coeff of Roderick 12.6 (11.5-14.5) % Plt Count 206 (130-400) K/uL MPV 10.7 H (7.4-10.4) fL Immature Gran % (Auto) 0.3 % Neut % (Auto) 63.5 % Lymph % (Auto) 19.7 % Victoria % (Auto) 11.7 % Eos % (Auto) 4.4 % Baso % (Auto) 0.4 % Immature Gran # (Auto) 0.02 (0.00-0.02) K/uL Neut # (Auto) 4.90 (1.4-6.5) K/uL Lymph # (Auto) 1.52 (1.2-3.4) K/uL Victoria # (Auto) 0.90 H (0.11-0.59) K/uL Eos # (Auto) 0.34 (0-0.5) K/uL Baso # (Auto) 0.03 (0-0.2) K/uL APTT 26.0 (21.0-31.0) Seconds PTT Ratio 1.0 Sodium 140 (136-145) mmol/L Potassium 3.6 (3.5-5.1) mmol/L Chloride 108 H (98-107) mmol/L Carbon Dioxide 26 (21-32) mmol/L Anion Gap 6.0 (3-11) BUN 12 (7-18) mg/dl Creatinine 1.34 (0.6-1.4) mg/dl Est Cr Clr Drug Dosing 41.8 ml/min Est GFR ( Amer) 57.2 Est GFR (Non-Af Amer) 49.3 BUN/Creatinine Ratio 8.9 L (10-20) Glucose 111 H (70-99) mg/dl Calcium 8.4 L (8.5-10.1) mg/dl Magnesium (1.8-2.4) mg/dl Total Bilirubin 0.5 (0.2-1) mg/dl AST 17 (15-37) U/L ALT 23 (12-78) U/L Alkaline Phosphatase 70 (45-117) U/L Troponin I < 0.015 (0-0.045) ng/ml Total Protein 7.2 (6.4-8.2) gm/dl Albumin 3.7 (3.4-5.0) gm/dl Globulin 3.5 (2.5-4.0) gm/dl Albumin/Globulin Ratio 1.1 (0.9-2) Lipase 110 (73-393) U/L TSH (0.300-4.500) uIu/ml 06/09/18 Range/Units 03:50 WBC (4.8-10.8) K/uL RBC (4.7-6.1) M/uL Hgb (14.0-18.0) g/dL Hct (42-52) % MCV (80-100) fL MCH (25-34) pg MCHC (32-36) g/dL RDW Std Deviation (36.4-46.3) fL RDW Coeff of Roderick (11.5-14.5) % Plt Count (130-400) K/uL MPV (7.4-10.4) fL Immature Gran % (Auto) % Neut % (Auto) % Lymph % (Auto) % Victoria % (Auto) % Eos % (Auto) % Baso % (Auto) % Immature Gran # (Auto) (0.00-0.02) K/uL Neut # (Auto) (1.4-6.5) K/uL Lymph # (Auto) (1.2-3.4) K/uL Victoria # (Auto) (0.11-0.59) K/uL Eos # (Auto) (0-0.5) K/uL Baso # (Auto) (0-0.2) K/uL APTT (21.0-31.0) Seconds PTT Ratio Sodium (136-145) mmol/L Potassium (3.5-5.1) mmol/L Chloride (98-107) mmol/L Carbon Dioxide (21-32) mmol/L Anion Gap (3-11) BUN (7-18) mg/dl Creatinine (0.6-1.4) mg/dl Est Cr Clr Drug Dosing ml/min Est GFR ( Amer) Est GFR (Non-Af Amer) BUN/Creatinine Ratio (10-20) Glucose (70-99) mg/dl Calcium (8.5-10.1) mg/dl Magnesium 2.1 (1.8-2.4) mg/dl Total Bilirubin (0.2-1) mg/dl AST (15-37) U/L ALT (12-78) U/L Alkaline Phosphatase (45-117) U/L Troponin I (0-0.045) ng/ml Total Protein (6.4-8.2) gm/dl Albumin (3.4-5.0) gm/dl Globulin (2.5-4.0) gm/dl Albumin/Globulin Ratio (0.9-2) Lipase (73-393) U/L TSH 6.820 H (0.300-4.500) uIu/ml Imaging Data Attestation: I personally reviewed and interpreted this imaging study as follows: My Impression: XR chest 1V: perihilar lymphadenopathy with nodular densities in the right lung Radiologist's Impression: CTA Chest: 4.5 cm ascending aortic aneurysm without dissection. 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 Cholelithiasis and possible cholecystitis Right basilar atelectasis. No definite infiltrate. No effusion or pneumothorax. ECG Data Attestation: I personally reviewed and interpreted this ECG as follows: Indication: chest pain Rate (beats per minute): 55 Rhythm: sinus bradycardia Findings: + other (no t-wave changes); no ST elevation and no ectopy Blood Pressure Blood Pressure Findings: Elevated blood pressure Blood Pressure Disposition: further management by hospitalist BUBBA Kelley The patient is a 82 year old M who presents to the ED with for complaints of worsening chest pain starting 1 day ago. Differential diagnosis includes GERD, aortic dissection, angina, and acute coronary syndrome. The patient presents to the emergency department with a fairly sudden onset of chest discomfort last night. Upon presentation, he has epigastric discomfort. A GI cocktail gave him no relief of his symptoms. The patient has received a dose of nitroglycerin with no relief of the chest discomfort. CT scan of the chest shows a persistent aortic aneurysm measuring 4.5 cm. There is also some thrombus noted. CT scan also shows evidence of cholelithiasis and probable acute cholecystitis. This would certainly account for the patient's epigastric discomfort. LFTs, however, were normal. Patient was given a dose of morphine and Zofran for his discomfort. I discussed the case with Dr. Cervantes and he will evaluate for further management. The patient may go on to have an ultrasound of the right upper quadrant to further evaluate the gallbladder. Impression & Plan Cholelithiasis, Epigastric pain Discharge Plan Visit Data Chief Complaint: Chest Pain Stated Complaint: CHEST PAIN ED Provider: Gabriela Baker Discharge Problem: Cholelithiasis, Epigastric pain Forms Stand Alone Forms: My [facility] [employer] Prescriptions Prescriptions: No Action aspirin 81 mg Tablet,Chewable 81 mg PO DAILY RF: 0 atorvastatin 80 mg Tablet 80 mg PO DAILY RF: 0 lisinopril 5 mg Tablet 5 mg PO DAILY RF: 0 metoprolol succinate [Toprol XL] 25 mg Tablet Extended Release 24 Hr 12.5 mg PO DAILY RF: 0 nitroglycerin [Nitrostat] 0.4 mg Tablet, Sublingual 0.4 mg Sublingual DIRECTED PRN (Reason: Chest Pain) RF: 0 omeprazole 20 mg Capsule,Delayed Release(Dr/Ec) 20 mg PO DAILY RF: 0 Calcium 600 + D(3) 600 mg calcium- 200 unit Capsule 1 cap PO DAILY RF: 0 Discharge Problem: Cholelithiasis Qualifiers: Cholelithiasis location: gallbladder Cholecystitis presence: with cholecystitis Cholecystitis acuity: acute Biliary obstruction: without biliary obstruction Qualified Code(s): K80.00 - Calculus of gallbladder with acute cholecystitis without obstruction The scribe's documentation has been prepared under my direction and personally reviewed by me in its entirety. I confirm that the note above accurately reflects all work, treatment, procedures, and medical decision making performed by me.
[2018-06-09] MEDS ORDERED: HEPARIN SQ 5000 UNIT HEART ALERT CARP ONE (07:42)
[2018-06-09] MEDS ORDERED: HEPARIN 25000 UNIT/500 ML D5W IV ONE (07:42)
[2018-06-09] MEDS: PROCHLORPERAZINE 5 MG in SYRINGE 4 ML IV PRN ×3 (07:48→20:21)
[2018-06-09] MEDS ORDERED: HydrALAZINE HCL 20 MG/ML VIAL IV PRN (09:18)
[2018-06-09] MEDS ORDERED: LISINOPRIL 5 MG TAB PO ONE (10:00)
[2018-06-09] MEDS ORDERED: HEPARIN LOW DOSE DEXTROSE 25,000 UNITS/500 ML IV SCH (10:30)
--- NOTE | 2018-06-09 12:56 | Hospitalist Progress Note ---
Date of Service June 09, 2018 Assessment & Plan (1) Chest pain: Seems to be Atypical CTA chest showed no aortic dissection EKG showed no ischemic changes Initial troponin negative Check Echo Follow up troponin Continue monitor closely Will resume aspirin Cholelithiasis Denies any RUQ pain, N/V CT Abd/pelvis showed no acute process of the abdomen or pelvis CTA showed mild gallbladder distention with several small gallstones. Will start on full liquid diet History CAD sp stenting Will resume aspirin Metoprolol was help due to HR in the 50's Continue monitor Hypertensive urgency Possible related to chest discomfort with hospital setting Increased lisinopril to 10mg Hydralazine PRN adding Continue monitor BP closely History non-Hodgkin's lymphoma status post radiation patient refused chemotherapy in the past Aortic Aneurysm CTA showed 4 cm dilatation of the aortic root and ascending aorta. Will need to control BP Will resume Metoprolol Bibasilar Infiltrates Seen on CT abd/pelvis CTA showed no well defined infiltrate Denies any pulmonary symptoms Afebrile and no leukocytosis Will hold on abx for now DVT px on Lovenox subq CODE STATUS DNR Disposition Possible discharge tomorrow Ms. Teressa Jordan, contact #[phone]. Subjective Pt was seen and examined Lying in bed with no distress Pt said that chest pain improves Denies any chest pain, palpitation and SOB Physical Exam Vital Signs (Past 24 Hours): Last Vital Signs Temp 37.1 C 06/09/18 11:53 Pulse 58 L 06/09/18 11:53 Resp 20 06/09/18 11:53 BP 187/98 H 06/09/18 11:53 Pulse Ox 97 06/09/18 11:53 Physical Exam: General- No acute distress Head- atraumatic Eyes- PERRL, EOMI, ENT- oropharynx clear Neck- supple, no JVD Lungs- clear to auscultation Heart- regular rhythm Abdomen- normal bowel sounds, Mild tenderness with deep palpation in LLQ Extremities- no calf tenderness Neuro- alert, oriented x 3; PERRL, EOMI; no facial palsy; no dysarthria Skin- warm & dry
--- NOTE | 2018-06-09 12:58 | CT Scan Report ---
CT abd pelvis wo con CT DOSE: 822.42 mGycm HISTORY: Pain L abd pain TECHNIQUE: Multiaxial CT images of the abdomen and pelvis were performed without contrast. A dose lo wering technique was utilized adhering to the principles of ALARA. COMPARISON STUDY: None. FINDINGS: Small parenchymal infiltrate right base. Minimal infiltrative change left base. Configurati on of liver spleen and pancreas are unremarkable. Moderate cortical scarring of the kidneys bilateral ly. Moderate right renal atrophy. No evidence for hydronephrosis. Bladder is midline is moderately di stended. Bowel pattern is nonobstructive. IMPRESSION: 1. No acute process of the abdomen or pelvis. 2. Mild/moderate bladder distention. 3. Mild bibasilar parenchymal infiltrates. The above report was generated using voice recognition software. It may contain grammatical, syntax or spelling errors. Electronically signed by: Hayes Miller M.D. 06/09/2018 12:57 PM
[2018-06-09] MEDS: HydrALAZINE HCL 20 MG/ML VIAL IV PRN (15:13)
[2018-06-09] MEDS ORDERED: ONDANSETRON INJ 2 MG/ML 2 ML VIAL IV ONE (16:00)
--- NOTE | 2018-06-09 18:54 | Ultrasound Report ---
US gallbladder HISTORY: Pain. Nausea. R/o cholecystitis COMPARISON: None. FINDINGS: Gallbladder contains a small mass several small gallstones. Gallbladder wall is 2 mm. No pericholecys tic fluid. Common bile duct 4 mm. Liver is uniform throughout. Pancreas not seen due to overlying bow el content. Right kidney is negative for hydronephrosis. IMPRESSION: 1. Small amount of gallbladder sludge or several small gallstones. 2. Normal caliber bile ducts. 3. Otherwise negative study. The above report was generated using voice recognition software. It may contain grammatical, syntax or spelling errors. Electronically signed by: Hayes Miller M.D. 06/09/2018 6:52 PM
[2018-06-09 20:20] LABS: Prothrombin Time 10.5 Seconds (9.0-12.0)
[2018-06-09] MEDS: METOPROLOL SUCC 25MG EXT REL TAB PO SCH (21:17)
[2018-06-10 06:00] LABS: Hematocrit (blood only) 36.7 % (42-52); Hemoglobin 12.4 g/dL (14.0-18.0); Immature Granulocytes # (auto) 0.04 K/uL (0.00-0.02); Immature Granulocytes % (auto) 0.2 %; Lymphocytes # (auto) 1.22 K/uL (1.2-3.4); Lymphocytes % (auto) 6.8 %; Mean Corpuscular Hgb Conc 33.8 g/dL (32-36); Mean Corpuscular Volume 90.4 fL (80-100); Mean Platelet Volume 10.6 fL (7.4-10.4); Monocytes # (auto) 1.42 K/uL (0.11-0.59); Monocytes % (auto) 7.9 %; Neutrophils # (auto) 15.31 K/uL (1.4-6.5); Neutrophils % (auto) 85.1 %; Platelet Count 189 K/uL (130-400); RDW Coefficient of Variation 13.1 % (11.5-14.5); RDW Standard Deviation 42.9 fL (36.4-46.3); Red Blood Count 4.06 M/uL (4.7-6.1); White Blood Count 17.99 K/uL (4.8-10.8)
[2018-06-10] MEDS: LISINOPRIL 10 MG TAB PO SCH (07:49)
--- NOTE | 2018-06-10 08:59 | Surgery Consultation ---
Date of Consultation June 10, 2018 Assessment & Plan (1) Cholelithiasis: I believe the patient has a calculus cholecystitis and he may have small stones. His elevation in the white blood cell count he is a patient who would develop appetizing cholecystitis. His symptoms and gallbladder distention do concern me. I believe we should proceed with laparoscopic cholecystectomy today if possible. I have discussed this with the patient and his daughter and they agree and wish to proceed. History of Present Illness Attending Physician: Andrés Montero MD History of Present Illness Patient is a 82-year-old male admitted to the hospital with upper abdominal pain radiating to the back. He does have a cardiac history with stent placement but it does not appear this is cardiac in origin. He tried to eat yesterday and vomited. His white blood cell count is rising to 17.9. He underwent CAT scan and ultrasound which shows a distended gallbladder with sludge and probable stones. His liver function studies are normal His other history does include hypertension coronary disease with stent placement history of lymphoma Allergies Allergy/AdvReac Type Severity Reaction Status Date / Time No Known Allergies Allergy Unknown Verified 01/09/12 13:20 Home Medications Home Medications Medication Instructions Recorded Confirmed Type aspirin 81 mg PO DAILY 06/09/18 06/09/18 History atorvastatin 80 mg PO DAILY 06/09/18 06/09/18 History calcium carbonate-vitamin D3 1 cap PO DAILY 06/09/18 06/09/18 History [Calcium 600 + D(3)] lisinopril 5 mg PO DAILY 06/09/18 06/09/18 History metoprolol succinate [Toprol XL] 12.5 mg PO DAILY 06/09/18 06/09/18 History nitroglycerin [Nitrostat] 0.4 mg SUBLINGUAL DIRECTED PRN 06/09/18 06/09/18 History omeprazole 20 mg PO DAILY 06/09/18 06/09/18 History Patient History Medical History Hypertension (Chronic) Heart disease (Chronic) Surgical History H/O heart surgery Social History Preferred Language: Albanian Communication Ability: Effective Communication Ability Comment: blind left eye, 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 Mechanic Required: No Beliefs That Will Affect Care: None Current Living Situation: Alone current occupational status: retired Other Information That Helps Us Care for You: No Feels Safe at Home: Yes Safety Concerns: Feels Safe At This Time Smoking Status: Former smoker Hx Alcohol Use: No Hx Substance Use: No Review of Systems Please see HPI for review of systems and a positive sense Physical Exam Vital Signs (Past 24 Hours): Last Vital Signs Temp 37.3 C 06/10/18 07:39 Pulse 64 06/10/18 07:39 Resp 18 06/10/18 07:39 BP 148/84 H 06/10/18 07:39 Pulse Ox 92 06/10/18 07:39 His HEENT exam is grossly normal his sclera are anicteric and his neck is supple. He is in no respiratory distress. His heart shows regular rate. His abdomen is soft does have some mild discomfort in the upper abdomen to palpation. His extremities are warm he is alert and responsive Results & Data Diagnostic Findings I did review his ultrasound and CAT scan (1) Cholelithiasis Biliary obstruction: without biliary obstruction Cholecystitis acuity: acute Cholecystitis presence: with cholecystitis Cholelithiasis location: gallbladder Qualified Code(s): K80.00 - Calculus of gallbladder with acute cholecystitis without obstruction
[2018-06-10] MEDS ORDERED: METOPROLOL SUCC 25MG EXT REL TAB PO SCH (09:00)
[2018-06-10] MEDS ORDERED: cefOXitin 2,000 MG in DEXTROSE 5% 50 ML IV ONE (09:45)
[2018-06-10] MEDS ORDERED: BUPIVACAINE 0.5 % 5 MG/1 ML MPF 30ML VIAL ONE (10:58)
[2018-06-10] MEDS ORDERED: LIDOCAINE HCL 2% 2 ML VIAL/AMP(20MG/ML) INFIL ONE (11:19)
[2018-06-10] MEDS ORDERED: ONDANSETRON INJ 2 MG/ML 2 ML VIAL ONE (11:19)
[2018-06-10] MEDS ORDERED: fentaNYL citrate 100 MCG/2 ML VIAL ONE ×2 (11:19)
[2018-06-10] MEDS ORDERED: ROCURONIUM BROMIDE 10 MG/ML 5 ML VIAL ONE (11:19)
[2018-06-10] MEDS ORDERED: PROPOFOL IV EMULSION 10 MG/ML 20 ML VIAL IV ONE (11:19)
--- NOTE | 2018-06-10 11:35 | Anesthesiology Consultation ---
Date of Service June 10, 2018 Assessment & Plan Chart Review Chart Review: Acceptable Risk for Surgery Consults Requested none ASA [id number] History Surgery Operation Date: 06/10/18 09:00 Proposed Procedures p Laparoscopic Cholecystectomy - Matt Brunner MD, FACS Height/Weight Height: 5 ft 8 in Weight: 75 kg Allergies Allergy/AdvReac Type Severity Reaction Status Date / Time No Known Allergies Allergy Unknown Verified 01/09/12 13:20 Medications Home Medications Medication Instructions Recorded Confirmed Last Taken aspirin 81 mg PO DAILY 06/09/18 06/09/18 Unknown atorvastatin 80 mg PO DAILY 06/09/18 06/09/18 Unknown calcium carbonate-vitamin D3 1 cap PO DAILY 06/09/18 06/09/18 Unknown [Calcium 600 + D(3)] lisinopril 5 mg PO DAILY 06/09/18 06/09/18 Unknown metoprolol succinate [Toprol XL] 12.5 mg PO DAILY 06/09/18 06/09/18 Unknown nitroglycerin [Nitrostat] 0.4 mg SUBLINGUAL DIRECTED PRN 06/09/18 06/09/18 Unknown omeprazole 20 mg PO DAILY 06/09/18 06/09/18 Unknown Active Medications Generic Name Dose Route Start Last Admin Trade Name Freq PRN Reason Stop Dose Admin Hydralazine HCl 10 mg 06/09/18 13:16 06/09/18 15:13 Hydralazine Hcl IV 07/09/18 09:17 10 mg Q6H PRN Administration For SBP above 165 Prochlorperazine 5 mg/ Syringe 5 mls @ 5 mls/min 06/09/18 07:11 06/09/18 20:21 IV 07/09/18 07:10 5 mls/min Q6H PRN Administration Nausea And Vomiting Lisinopril 10 mg 06/10/18 09:00 06/10/18 07:49 Zestril PO 07/10/18 08:59 10 mg QAM BHARATH Administration Metoprolol Succinate 12.5 mg 06/09/18 20:45 06/09/18 21:17 Toprol Xl PO 07/09/18 20:44 12.5 mg QAM BHARATH Administration Tramadol HCl 25 - 50 mg 06/09/18 07:14 06/09/18 11:23 Ultram PO 07/09/18 07:13 50 mg Q4H PRN Administration Pain Past Medical History Medical History Hypertension (Chronic) Heart disease (Chronic) Past Family History Family History Other Cancer Diabetes Heart disease Hypertension Past Surgical History Surgical History H/O heart surgery Social History Smoking Status: Former smoker tobacco type: cigarettes Do You Dip or Chew Tobacco: No Smoking End Date: 1978 Hx Alcohol Use: No Hx Substance Use: No Physical Exam Vital Signs Last Vital Signs Temp 37.3 C 06/10/18 07:39 Pulse 63 06/10/18 08:00 Resp 18 06/10/18 07:39 BP 148/84 H 06/10/18 07:39 Pulse Ox 92 06/10/18 07:39 Testing Laboratory Results 06/10/18 05:19 06/09/18 03:50 PT 10.5 Seconds (9.0-12.0) 06/09/18 03:50 INR 1.0 (0.9-1.1) 06/09/18 03:50 APTT 26.0 Seconds (21.0-31.0) 06/09/18 03:50
[2018-06-10] MEDS ORDERED: ePHEDrine sulfate 50 MG/ML AMP IV PRN (11:37)
[2018-06-10] MEDS ORDERED: HYDROmorphone INJ 1 MG/ML SYRINGE IV PRN ×2 (11:37→13:44)
[2018-06-10] MEDS ORDERED: ONDANSETRON INJ 2 MG/ML 2 ML VIAL IV PRN ×2 (11:37→13:44)
[2018-06-10] MEDS ORDERED: ATROPINE SULFATE 0.1 MG/ML 10ML SYR IV PRN (11:37)
[2018-06-10] MEDS ORDERED: fentaNYL citrate 100 MCG/2 ML VIAL IV PRN (11:37)
[2018-06-10] MEDS ORDERED: NEOSTIGMINE METHYLSULFATE 5 MG/5 ML SYR ONE (12:18)
[2018-06-10] MEDS ORDERED: GLYCOPYRROLATE 0.2 MG/ML VIAL ONE (12:18)
[2018-06-10] MEDS ORDERED: cefOXitin 2,000 MG in DEXTROSE 5% 50 ML IV STA (12:30)
[2018-06-10] MEDS ORDERED: LABETALOL HCL IV 5 MG/ML 20ML IV ONE ×2 (12:33→12:34)
--- NOTE | 2018-06-10 12:36 | Operative Report ---
Post Operative Report Pre & Post Diagnosis Operation Date: 06/10/18 09:00 Pre-Op Diagnosis: Calculus cholecystitis Post-Op Diagnosis: Calculus cholecystitis same with gangrenous chgs and hydrops Procedure Operation Date: 06/10/18 09:00 Actual Procedures p Laparoscopic Cholecystectomy(Not Applicable) - Matt Brunner MD, FACS same Surgeon Matt Brunner MD, FACS Furnace Erector nurses Estimated Blood Loss 20 Findings Consistent with Post-Op Diagnosis Specimens gallbladder Description of Procedure see dictated note I attest to the content of the Intraoperative Record and any orders documented therein. Any exceptions are noted below.
--- NOTE | 2018-06-10 12:57 | Operative Report ---
DATE OF OPERATION: 06/10/2018 NAME OF OPERATION: Laparoscopic cholecystectomy. PREOPERATIVE DIAGNOSIS: Acute cholecystitis. POSTOPERATIVE DIAGNOSES: Acute cholecystitis with necrotizing cholecystitis and hydrops. STAFF SURGEON: Matt Brunner MD ANESTHESIA: General. DESCRIPTION OF PROCEDURE: The patient was brought in the operating room and placed on the operating table in supine position. His abdomen was prepped and draped in usual fashion. Pneumatic stockings and orogastric tube were placed and La catheter placed. An incision was made just above the umbilicus using 0.5% plain Marcaine to anesthetize skin and subcutaneous tissue, carrying dissection down to the fascia, placing a Veress needle producing pneumoperitoneum. An 11 mm port placed this level and then under visualization, three 5 mm ports were placed, 1 cephalad and 2 laterally. Gallbladder had adhesions to it from the omentum which were inflammatory. Gallbladder was gangrenous. It was aspirated of bile which was clear, indicating hydrops and obstruction. Dissection was carried out at the farshad hepatis, identifying the cystic duct and cystic artery. These were clipped and transected. There was severe edema in the gallbladder wall. The gallbladder was dissected away from the liver in the usual fashion and placed into an Endobag. After appropriate hemostasis and irrigation, the Endobag was removed through the umbilical site. The umbilical fascia closed using interrupted 0 PDS suture. Skin then reapproximated at all incisions using 4-0 nylon suture. The patient was transferred to recovery room in stable condition. I attest to the content of the Intraoperative Record and any orders documented therein. Any exception s are noted below.
[2018-06-10] MEDS ORDERED: HYDROmorphone INJ 0.5 MG/0.5 ML SYR IV PRN (13:44)
[2018-06-10] MEDS ORDERED: PROMETHAZINE HCL 12.5 MG in SODIUM CHLORIDE 0.9% 50 ML IV PRN (13:44)
[2018-06-10] MEDS ORDERED: HYDROCODONE/ACETAMOPHEN 5/325MG TAB PO PRN ×2 (13:44)
--- NOTE | 2018-06-10 13:45 | Hospitalist Progress Note ---
Date of Service June 10, 2018 Assessment & Plan (1) Chest pain: Atypical CTA chest showed no aortic dissection EKG showed no ischemic changes Troponin x2 negative ECHO showed no wall motion abnormality, grade I diastolic dysfunction with EF 70% Continue monitor closely Aspirin was held today due to gallbladder surgery Denies any chest pain Calculus Cholecystitis Denies any RUQ pain on exam Vomiting yesterday after eating CT Abd/pelvis showed no acute process of the abdomen or pelvis CTA showed mild gallbladder distention with several small gallstones. Gallbladder u/s showed small amount of gallbladder sludge or several small gallstones. Surgery consulted S/P Laparoscopic cholecystectomy done today by Dr. Brunner Continue Cefoxitin for now History CAD sp stenting Will resume aspirin in am Continue metoprolol Continue monitor Hypertensive urgency Possible related to chest discomfort with hospital setting BP improved Continue lisinopril to 10mg and metoprolol Hydralazine PRN adding Continue monitor BP closely History non-Hodgkin's lymphoma status post radiation patient refused chemotherapy in the past Aortic Aneurysm CTA showed 4 cm dilatation of the aortic root and ascending aorta. Stable Bibasilar Infiltrates Seen on CT abd/pelvis CTA showed no well defined infiltrate Denies any pulmonary symptoms Afebrile and no leukocytosis Will hold on abx for now DVT px on Lovenox subq on hold today due to surgical procedure Will add SCDs CODE STATUS DNR Disposition Possible discharge tomorrow Ms. Teressa Jordan, contact #[phone]. Subjective Pt was seen and examined Lying in bed with nondistress Pt said that pain is less Yesterday he had an episode of vomiting after starting on full liquid diet Denies any chest pain, palpitation, dizziness and SOB Physical Exam Vital Signs (Past 24 Hours): Last Vital Signs Temp 37 C 06/10/18 13:21 Pulse 72 06/10/18 13:21 Resp 22 06/10/18 13:21 BP 146/77 H 06/10/18 13:21 Pulse Ox 97 06/10/18 13:21 Physical Exam: General- No acute distress Head- atraumatic Eyes- PERRL, EOMI, ENT- oropharynx clear Neck- supple, no JVD Lungs- clear to auscultation Heart- regular rhythm, +murmur Abdomen- normal bowel sounds, Mild tenderness with deep palpation in LLQ Extremities- no calf tenderness Neuro- alert, oriented x 3; PERRL, EOMI; no facial palsy; no dysarthria Skin- warm & dry
--- NOTE | 2018-06-10 13:49 | Anesthesiology Progress Note ---
Date of Service June 10, 2018 Anesthesia Post Procedure Vital Signs Vital Signs: Temp Pulse Pulse Pulse Resp BP Pulse Ox 06/10/18 13:45 37.0 C 65 18 146/77 H 90 06/10/18 13:21 37 C 72 22 146/77 H 97 06/10/18 13:15 72 19 92 06/10/18 12:51 20 150/75 H 06/10/18 12:45 37 C 69 22 167/94 H 95 06/10/18 08:00 63 06/10/18 07:39 37.3 C 64 18 148/84 H 92 06/09/18 23:46 37.1 C 75 20 149/74 H 93 06/09/18 22:32 74 06/09/18 21:15 78 181/77 H 92 06/09/18 19:36 36.8 C 84 20 180/84 H 94 06/09/18 17:40 78 150/60 H 06/09/18 15:28 36.7 C 60 20 189/103 H 93 Pain Intensity Chest: Pain Intensity: 2 Notes Mental Status: alert / awake / arousable and participated in evaluation Patient Amnestic to Procedure: Yes Nausea / Vomiting: adequately controlled Pain: adequately controlled Airway Patency, RR, SpO2: stable & adequate BP & HR: stable & adequate Hydration State: stable & adequate Anesthetic Complications: no major complications apparent
[2018-06-10] MEDS: SODIUM CHLORIDE 0.9% 1000ML 1,000 ML IV SCH (14:22)
[2018-06-10] MEDS ORDERED: ACETAMINOPHEN 1,000 MG/100 ML VIAL IV ONE (14:30)
[2018-06-10] MEDS: cefOXitin 2,000 MG in DEXTROSE 5% 50 ML IV SCH (18:19)
[2018-06-10] MEDS: HydrALAZINE HCL 20 MG/ML VIAL IV PRN (22:44)
[2018-06-11] MEDS: cefOXitin 2,000 MG in DEXTROSE 5% 50 ML IV SCH ×3 (01:59→18:35)
[2018-06-11] MEDS: SODIUM CHLORIDE 0.9% 1000ML 1,000 ML IV SCH ×2 (01:59→15:28)
--- NOTE | 2018-06-11 05:21 | Progress Note ---
Date of Service June 11, 2018 Assessment & Plan (1) Gangrenous cholecystitis: adv diet, add sen s and MOM, d/c camara monitor GI function , possible d/c tomorrow if all agree and pt ok Subjective resting comfortably taking min pain med Physical Exam Vital Signs (Past 24 Hours): Last Vital Signs Temp 36.7 C 06/11/18 04:00 Pulse 71 06/11/18 04:00 Resp 18 06/11/18 04:00 BP 164/89 H 06/11/18 04:00 Pulse Ox 93 06/11/18 04:00 no acute chgs
[2018-06-11 06:09] LABS: Hematocrit (blood only) 34.5 % (42-52); Hemoglobin 11.9 g/dL (14.0-18.0); Immature Granulocytes # (auto) 0.06 K/uL (0.00-0.02); Immature Granulocytes % (auto) 0.4 %; Lymphocytes # (auto) 1.03 K/uL (1.2-3.4); Mean Corpuscular Hgb Conc 34.5 g/dL (32-36); Mean Corpuscular Volume 89.6 fL (80-100); Mean Platelet Volume 10.6 fL (7.4-10.4); Monocytes # (auto) 0.82 K/uL (0.11-0.59); Monocytes % (auto) 5.6 %; Neutrophils # (auto) 12.72 K/uL (1.4-6.5); Platelet Count 167 K/uL (130-400); RDW Coefficient of Variation 13.2 % (11.5-14.5); Red Blood Count 3.85 M/uL (4.7-6.1); White Blood Count 14.63 K/uL (4.8-10.8)
[2018-06-11 06:42] LABS: Albumin Globulin Ratio 0.8 (0.9-2); Albumin Level 2.9 gm/dl (3.4-5.0); BUN Creatinine Ratio 9.1 (10-20); Bilirubin Direct 0.3 mg/dl (0-0.2); Bilirubin,Total 1.1 mg/dl (0.2-1); Calcium 8.5 mg/dl (8.5-10.1); Creatinine Clr Calc Pharmacy 39.8 ml/min; Est GFR (African American) 53.8; Est GFR (Non-African American) 46.4; Globulin 3.7 gm/dl (2.5-4.0); Phosphorus 2.3 mg/dl (2.5-4.9); Total Protein 6.6 gm/dl (6.4-8.2)
--- NOTE | 2018-06-11 07:36 | Anesthesiology Progress Note ---
Date of Service June 11, 2018 Anesthesia Post Procedure Vital Signs Vital Signs: Temp Pulse Pulse Pulse Pulse Resp BP 06/11/18 04:00 36.7 C 71 18 164/89 H 06/11/18 01:15 73 161/81 H 06/10/18 23:37 74 172/96 H 06/10/18 23:29 86 06/10/18 22:43 68 181/92 H 06/10/18 22:00 37.0 C 68 18 181/92 H 06/10/18 20:25 36.8 C 71 18 149/73 H 06/10/18 15:46 36.3 C L 70 18 140/70 06/10/18 14:45 37.0 C 56 L 148/88 H 06/10/18 14:15 37.0 C 50 L 159/95 H 06/10/18 13:45 37.0 C 65 18 146/77 H 06/10/18 13:21 37 C 72 22 146/77 H 06/10/18 13:15 72 19 06/10/18 12:51 20 150/75 H 06/10/18 12:45 37 C 69 22 167/94 H 06/10/18 08:00 63 06/10/18 07:39 37.3 C 64 18 148/84 H Pulse Ox 06/11/18 04:00 93 06/11/18 01:15 06/10/18 23:37 06/10/18 23:29 06/10/18 22:43 06/10/18 22:00 92 06/10/18 20:25 94 06/10/18 15:46 95 06/10/18 14:45 93 06/10/18 14:15 93 06/10/18 13:45 90 06/10/18 13:21 97 06/10/18 13:15 92 06/10/18 12:51 06/10/18 12:45 95 06/10/18 08:00 06/10/18 07:39 92 Pain Intensity Chest: Pain Intensity: 2 Notes Mental Status: alert / awake / arousable Patient Amnestic to Procedure: Yes Nausea / Vomiting: adequately controlled Pain: adequately controlled Airway Patency, RR, SpO2: stable & adequate BP & HR: stable & adequate Hydration State: stable & adequate Anesthetic Complications: no major complications apparent
[2018-06-11] MEDS ORDERED: LISINOPRIL 5 MG TAB PO SCH (09:00)
[2018-06-11] MEDS: LISINOPRIL 10 MG TAB PO SCH (09:28)
[2018-06-11] MEDS: DOCUSATE SODIUM/SENNA 50/8.6MG TAB PO SCH ×2 (09:29→20:12)
[2018-06-11] MEDS: MAGNESIUM HYDROXIDE SUSP 30 ML UDC PO SCH ×2 (09:30→19:07)
[2018-06-11] MEDS: ASPIRIN 81 MG ECTAB PO SCH (09:30)
[2018-06-11] MEDS: ENOXAPARIN INJ 30 MG/0.3 ML SYR SQ SCH (09:39)
[2018-06-11] MEDS: METOPROLOL SUCC 25MG EXT REL TAB PO SCH (09:40)
[2018-06-11] MEDS: HydrALAZINE HCL 20 MG/ML VIAL IV PRN ×2 (11:33→20:12)
[2018-06-11] MEDS: PANTOprazole 40 MG TAB PO SCH (12:46)
--- NOTE | 2018-06-11 18:13 | Hospitalist Progress Note ---
Date of Service June 11, 2018 Assessment & Plan (1) Gangrenous cholecystitis: Calculus Cholecystitis CT Abd/pelvis showed no acute process of the abdomen or pelvis CTA showed mild gallbladder distention with several small gallstones. Gallbladder u/s showed small amount of gallbladder sludge or several small gallstones. S/P day 1 Laparoscopic cholecystectomy performed by Dr. Brunner Continue Cefoxitin for now Diet advance as tolerated Pain controlled Will d/c IVF (2) Chest pain: Atypical CTA chest showed no aortic dissection EKG showed no ischemic changes Troponin x2 negative ECHO showed no wall motion abnormality, grade I diastolic dysfunction with EF 70% Continue monitor closely Aspirin resumed Continue metoprolol Denies any chest pain History CAD sp stenting Will resume aspirin in am Continue metoprolol Continue monitor Hypertensive urgency Possible related to chest discomfort with hospital setting BP improved Continue lisinopril to 10mg and metoprolol Hydralazine PRN adding Continue monitor BP closely Hyponatremia Possible related to poor oral intake and vomiting Monitor BMP History non-Hodgkin's lymphoma status post radiation patient refused chemotherapy in the past Aortic Aneurysm CTA showed 4 cm dilatation of the aortic root and ascending aorta. Stable Bibasilar Infiltrates Seen on CT abd/pelvis CTA showed no well defined infiltrate Denies any pulmonary symptoms Afebrile and no leukocytosis Will hold on abx for now DVT px on Lovenox subq on hold today due to surgical procedure Will resume Lovenox On SCDs CODE STATUS DNR Disposition Possible discharge tomorrow Ms. Treessa Jordan, contact #[phone]. Subjective Pt was seen and examined Lying in bed with no distress Pt said that his pain improves Denies any chest pain, palpitation and SOB Physical Exam Vital Signs (Past 24 Hours): Last Vital Signs Temp 36.9 C 06/11/18 15:00 Pulse 81 06/11/18 16:00 Resp 18 06/11/18 15:00 BP 148/78 H 06/11/18 16:00 Pulse Ox 94 06/11/18 15:00 Physical Exam: General- No acute distress Head- atraumatic Eyes- PERRL, EOMI, ENT- oropharynx clear Neck- supple, no JVD Lungs- clear to auscultation Heart- regular rhythm, +murmur Abdomen- normal bowel sounds, Mild tenderness with deep palpation around the incision area Extremities- no calf tenderness Neuro- alert, oriented x 3; PERRL, EOMI; no facial palsy; no dysarthria Skin- warm & dry
[2018-06-12] MEDS ORDERED: SODIUM CHLORIDE 0.65% NA SOLN 45 ML (OCEAN) PRN (00:58)
[2018-06-12] MEDS: cefOXitin 2,000 MG in DEXTROSE 5% 50 ML IV SCH ×2 (01:09→10:05)
[2018-06-12 06:09] LABS: Hematocrit (blood only) 31.8 % (42-52); Hemoglobin 11.2 g/dL (14.0-18.0); Mean Corpuscular Hgb Conc 35.2 g/dL (32-36); Mean Corpuscular Volume 87.6 fL (80-100); Mean Platelet Volume 10.6 fL (7.4-10.4); Platelet Count 193 K/uL (130-400); RDW Coefficient of Variation 12.6 % (11.5-14.5); Red Blood Count 3.63 M/uL (4.7-6.1); White Blood Count 10.33 K/uL (4.8-10.8)
[2018-06-12 06:40] LABS: BUN Creatinine Ratio 13.7 (10-20); Calcium 8.4 mg/dl (8.5-10.1); Creatinine Clr Calc Pharmacy 53.9 ml/min; Est GFR (African American) 77.7; Potassium 3.9 mmol/L (3.5-5.1)
[2018-06-12] MEDS: ENOXAPARIN INJ 30 MG/0.3 ML SYR SQ SCH (07:12)
[2018-06-12] MEDS: MAGNESIUM HYDROXIDE SUSP 30 ML UDC PO SCH (07:33)
[2018-06-12] MEDS: PANTOprazole 40 MG TAB PO SCH (07:33)
[2018-06-12] MEDS: DOCUSATE SODIUM/SENNA 50/8.6MG TAB PO SCH (07:33)
[2018-06-12] MEDS: ASPIRIN 81 MG ECTAB PO SCH (07:33)
[2018-06-12] MEDS: LISINOPRIL 10 MG TAB PO SCH (07:34)
[2018-06-12] MEDS: METOPROLOL SUCC 25MG EXT REL TAB PO SCH (07:34)
--- NOTE | 2018-06-12 07:59 | Progress Note ---
Date of Service June 12, 2018 Assessment & Plan (1) Gangrenous cholecystitis: d/c home when ok with med team- d/c info done scripts for pain med and atbx done Subjective doing well- hungry Physical Exam Vital Signs (Past 24 Hours): Last Vital Signs Temp 36.8 C 06/12/18 07:09 Pulse 83 06/12/18 07:09 Resp 18 06/12/18 07:09 BP 178/70 H 06/12/18 07:09 Pulse Ox 91 06/12/18 07:09 abd soft
[2018-06-12] MEDS ORDERED: METOPROLOL SUCC 25MG EXT REL TAB PO SCH (09:00)
--- NOTE | 2018-06-12 13:09 | Hospitalist Progress Note ---
Date of Service June 12, 2018 Assessment & Plan (1) Gangrenous cholecystitis: Calculus Cholecystitis CT Abd/pelvis showed no acute process of the abdomen or pelvis CTA showed mild gallbladder distention with several small gallstones. Gallbladder u/s showed small amount of gallbladder sludge or several small gallstones. S/P day 2 Laparoscopic cholecystectomy performed by Dr. Brunner On Cefoxitin for now Diet advance as tolerated well Pain controlled OK from surgical stand point to discharge home Will discharge on Augmentin IVF d/c (2) Chest pain: Atypical CTA chest showed no aortic dissection EKG showed no ischemic changes Troponin x2 negative ECHO showed no wall motion abnormality, grade I diastolic dysfunction with EF 70% Continue monitor closely Aspirin resumed Continue metoprolol Denies any chest pain History CAD sp stenting Will resume aspirin in am Continue metoprolol Continue monitor Hypertensive urgency Possible related to chest discomfort with hospital setting BP improved Will increase lisinopril to 20mg on discharge and Will change metoprolol back to 12.5 mg due to bradycardia Will need outpatient follow up to adjust his BP med Continue monitor BP closely Hyponatremia Possible related to poor oral intake and vomiting Check BMP in 1 week History non-Hodgkin's lymphoma status post radiation patient refused chemotherapy in the past Aortic Aneurysm CTA showed 4 cm dilatation of the aortic root and ascending aorta. Stable Bibasilar Infiltrates Seen on CT abd/pelvis CTA showed no well defined infiltrate Denies any pulmonary symptoms Afebrile and no leukocytosis Will hold on abx for now DVT px on Lovenox subq on hold today due to surgical procedure Will resume Lovenox On SCDs CODE STATUS DNR Disposition Possible discharge today Follow up with PCP dr. Blount on 06/18 @ 11 PM Ms. Teressa Jordan, contact #[phone]. Subjective Pt was seen and examined Sitting in chair with no distress Pt said that he feels much better today He said that he tolerated his diet well He said that he does not have any pain Pt would like to go home today Denies any chest pain, palpitation, dizziness and SOB Physical Exam Vital Signs (Past 24 Hours): Last Vital Signs Temp 37.2 C 06/12/18 11:46 Pulse 48 L 06/12/18 11:46 Resp 18 06/12/18 11:46 BP 148/92 H 06/12/18 11:46 Pulse Ox 95 03/05/19 11:46 Physical Exam: General- No acute distress Head- atraumatic Eyes- PERRL, EOMI, ENT- oropharynx clear Neck- supple, no JVD Lungs- clear to auscultation Heart- +murmur Abdomen- normal bowel sounds, no tenderness Extremities- no calf tenderness Neuro- alert, oriented x 3; PERRL, EOMI; no facial palsy; no dysarthria Skin- warm & dry
--- NOTE | 2018-06-13 08:01 | Discharge Summary ---
Date of Service June 21, 2018 Admission HPI Per Admitting Provider History obtained from patient, family, and records. 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 Recent confinement April 2007 for chest pain. Stress echo negative. Patient woke up last night with substernal pain going to the back without shortness of breath, no unusual cough symptoms, different from heart attack in the past which presented as indigestion as per patient. No relief with nitroglycerin taken at home and given at the emergency room. No fever no chills no nausea no vomiting good bowel movement, no unusual fluid retention. 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 Medical History as above TTE March 2018 EF 55-59%. Showed mild aortic valve sclerosis, trace aortic regurgitation, mild tricuspid regurgitation, aortic root is borderline dilated 3.8 cm. 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 Surgical History : Eye surgery Family History : Leukemia, stroke Personal/Social history : Past tobacco abuse no EtOH intake, retired [employer] employee Discharge Data Consultations 06/10/18 07:28 Consult General Surgery Routine Procedures Performed Operation Date: 06/10/18 09:00 Actual Procedures p Laparoscopic Cholecystectomy(Not Applicable) - Matt Brunner MD, FACS
[2018-06-13] MEDS ORDERED: METOPROLOL SUCC 25MG EXT REL TAB PO SCH (09:00)
--- NOTE | 2018-06-21 08:44 | Discharge Summary ---
Date of Service June 12, 2018 Admission HPI Per Admitting Provider History obtained from patient, family, and records. 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 Recent confinement April 2007 for chest pain. Stress echo negative. Patient woke up last night with substernal pain going to the back without shortness of breath, no unusual cough symptoms, different from heart attack in the past which presented as indigestion as per patient. No relief with nitroglycerin taken at home and given at the emergency room. No fever no chills no nausea no vomiting good bowel movement, no unusual fluid retention. 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 Medical History as above TTE March 2018 EF 55-59%. Showed mild aortic valve sclerosis, trace aortic regurgitation, mild tricuspid regurgitation, aortic root is borderline dilated 3.8 cm. 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 Admission Exam Per Admitting Provider GENERAL: Comfortable, pleasant, slight of hearing, no respiratory distress SKIN: Pallor , warm HEENT: Pale palpebral conjunctivae, no ptosis, dry buccal mucosa NECK : Supple, no tenderness CHEST : CTA, left anterior chest wall tenderness HEART : RRR, no obvious murmurs ABDOMEN: Some distention, upper abdominal/left abdominal tenderness EXTREMITIES : No LE swelling/tenderness, no other conspicuous deformities noted NEUROLOGIC : Coherent, vision not assessed, no facial asymmetry, no other gross focality Principal Diagnosis acute cholecystitis Discharge Exam General- No acute distress Head- atraumatic Eyes- PERRL, EOMI, ENT- oropharynx clear Neck- supple, no JVD Lungs- clear to auscultation Heart- +murmur Abdomen- normal bowel sounds, no tenderness Extremities- no calf tenderness Neuro- alert, oriented x 3; PERRL, EOMI; no facial palsy; no dysarthria Skin- warm & dry Discharge Data Allergies Allergy/AdvReac Type Severity Reaction Status Date / Time No Known Allergies Allergy Unknown Verified 01/09/12 13:20 Consultations 06/10/18 07:28 Consult General Surgery Routine Procedures Performed Operation Date: 06/10/18 09:00 Actual Procedures p Laparoscopic Cholecystectomy(Not Applicable) - Matt Brunner MD, FACS Ordered Studies 06/09/18 05:11 CT angio chest dissec wo/w con Urgent 06/09/18 07:04 CT abd pelvis wo con Urgent 06/09/18 15:49 US gallbladder Routine US gallbladder HISTORY: Pain. Nausea. R/o cholecystitis COMPARISON: None. FINDINGS: Gallbladder contains a small mass several small gallstones. Gallbladder wall is 2 mm. No pericholecystic fluid. Common bile duct 4 mm. Liver is uniform throughout. Pancreas not seen due to overlying bowel content. Right kidney is negative for hydronephrosis. IMPRESSION: 1. Small amount of gallbladder sludge or several small gallstones. 2. Normal caliber bile ducts. 3. Otherwise negative study. The above report was generated using voice recognition software. It may contain grammatical, syntax or spelling errors. Electronically signed by: Hayes Miller M.D. 06/09/2018 6:52 PM Dictated: 06/09/181850 Transcribed: 06/09/181850 CT abd pelvis wo con CT DOSE: 822.42 mGycm HISTORY: Pain L abd pain TECHNIQUE: Multiaxial CT images of the abdomen and pelvis were performed without contrast. A dose lowering technique was utilized adhering to the principles of ALARA. COMPARISON STUDY: None. FINDINGS: Small parenchymal infiltrate right base. Minimal infiltrative change left base. Configuration of liver spleen and pancreas are unremarkable. Moderate cortical scarring of the kidneys bilaterally. Moderate right renal atrophy. No evidence for hydronephrosis. Bladder is midline is moderately distended. Bowel pattern is nonobstructive. IMPRESSION: 1. No acute process of the abdomen or pelvis. 2. Mild/moderate bladder distention. 3. Mild bibasilar parenchymal infiltrates. The above report was generated using voice recognition software. It may contain grammatical, syntax or spelling errors. Electronically signed by: Hayes Miller M.D. 06/09/2018 12:[address] angio chest dissec wo/w con CT DOSE: 731.02 mGy.cm HISTORY: Chest pain eval for aortic dissection TECHNIQUE: Multiaxial CT images of the chest, abdomen, and pelvis were performed both before and after the intravenous administration of contrast to evaluate the aorta. Maximal intensity projection images were also obtained. A dose lowering technique was utilized adhering to the principles of ALARA. COMPARISON STUDY: None. FINDINGS: 4 cm diameter of the a sending aorta. No evidence for dissection. Descending thoracic aorta shows minimal atherosclerotic change. Moderate prominence of pulmonary vasculature. Bibasilar bronchovascular congestion. No well-defined focal infiltrate. No significant mediastinal or hilar adenopathy. Several gallstones within a mildly distended gallbladder. IMPRESSION: 1. 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 2. No evidence for dissection. 3. Basilar bronchovascular congestion. 4. Mild gallbladder distention with several small gallstones. The above report was generated using voice recognition software. It may contain grammatical, syntax or spelling errors. Electronically signed by: Hayes Miller M.D. 06/09/2018 7:07 AM Dictated: 06/09/18703 Transcribed: 06/09/18703 XR chest 1V portable CLINICAL HISTORY: Chest Pain dyspnea COMPARISON STUDY: 04/13/2007 FINDINGS: Mild cardiomegaly. Slight prominence of pulmonary vasculature. No focal infiltrate. Diaphragms are smooth. IMPRESSION: Mild pulmonary vascular congestion. The above report was generated using voice recognition software. It may contain grammatical, syntax or spelling errors. Electronically signed by: Hayes Miller M.D. 06/09/2018 6:49 AM Dictated: 06/09/18 0648 Transcribed: 06/09/1848 Hospital Course (1) Gangrenous cholecystitis: Calculus Cholecystitis CT Abd/pelvis showed no acute process of the abdomen or pelvis CTA showed mild gallbladder distention with several small gallstones. Gallbladder u/s showed small amount of gallbladder sludge or several small gallstones. S/P day 2 Laparoscopic cholecystectomy performed by Dr. Brunner On Cefoxitin for now Diet advance as tolerated well Pain controlled OK from surgical stand point to discharge home Will discharge on Augmentin IVF d/c (2) Chest pain: Atypical CTA chest showed no aortic dissection EKG showed no ischemic changes Troponin x2 negative ECHO showed no wall motion abnormality, grade I diastolic dysfunction with EF 70% Continue monitor closely Aspirin resumed Continue metoprolol Denies any chest pain History CAD sp stenting Will resume aspirin in am Continue metoprolol Continue monitor Hypertensive urgency Possible related to chest discomfort with hospital setting BP improved Will increase lisinopril to 20mg on discharge and Will change metoprolol back to 12.5 mg due to bradycardia Will need outpatient follow up to adjust his BP med Continue monitor BP closely Hyponatremia Possible related to poor oral intake and vomiting Check BMP in 1 week History non-Hodgkin's lymphoma status post radiation patient refused chemotherapy in the past Aortic Aneurysm CTA showed 4 cm dilatation of the aortic root and ascending aorta. Stable Bibasilar Infiltrates Seen on CT abd/pelvis CTA showed no well defined infiltrate Denies any pulmonary symptoms Afebrile and no leukocytosis Will hold on abx for now DVT px on Lovenox subq on hold today due to surgical procedure Will resume Lovenox On SCDs CODE STATUS DNR Disposition Possible discharge today Follow up with PCP dr. Blount on 06/18 @ 11 PM Ms. Teressa Jordan, contact #[phone]. Total Time Total Time Spent Total Time Spent (In Minutes): 35 minutes Total Time Includes: Examination of the Patient, Discharge Planning, Medication Reconciliation, Communication With Other Providers and Other Discharge Plan Discharge Items Patient Disposition: Home - Home Health Services Reason For Visit: SUBCLAVIAN ARTERY THROMBUS Discharge Diagnosis: acute cholecystitis Discharge Goals: Decrease discomfort, Improve disease control and Increase independence Activity: As commented below Activity Comment: light activity for 3 weeks Bathing Comment: may shower Exercise Comment: wait 3 weeks Driving/Machine Use: Resume 3 days after discharge Non-emergency contact: Primary Care Provider and Surgeon Call non-emergency contact if: you have any medication questions, your pain is not controlled, your temperature is above 101 and your wound has increased drain age Follow-up/Referrals: Remberto Lorenzo DO [Primary Care Provider] - Diet: Heart Healthy Add Provider Instructions: Discharge home with home health with physical therapy ([facility] folder will arrange for home health services) Follow up with your primary care provider Dr. Blount on 06/18 @ 11 AM Follow up with Dr. Brunner Office (call to schedule for the appointment ) for next week for suture removal Complete the course of the antibiotic with Augmentin Do not drive or operate any machine after taking the Nordman If you develop any lethargy or drowsiness, please hold next dose of Narco Check BMP in 1 week to monitor your sodium Lisinopril increased to 10mg daily Monitor your blood pressure, your physician will adjust your blood pressure medication if needed Continue physical therapy Fall precaution SPECIAL CARE INSTRUCTIONS: * Cover incisions and change daily for comfort/drainage. Avoid constipation * May Use Senokot S and Milk of Magnesium twice daily as directed on the package * May use ibuprofen for pain as tolerated. * Expect some swelling and bruising. Call your doctor if: * Temperature above 101 degrees * Pain not relieved by pain medicine ordered * There is increased drainage or redness from any incision * You have any unanswered questions or concerns [phone]. FOLLOW UP VISIT: If not already scheduled, please call the office for a follow-up visit. OFFICE PHONE NUMBER: Dr. Brunner Office for next week- suture removal Prescriptions: New hydrocodone-acetaminophen [Nordman] 5-325 mg tablet 1 - 2 tab PO Q6H Qty: 30 RF: 0 hydrocodone-acetaminophen [Nordman] 5-325 mg tablet 1 - 2 tab PO Q6H Qty: 30 RF: 0 amoxicillin-pot clavulanate [Augmentin] 875-125 mg tablet 1 tab PO BID Qty: 10 RF: 0 lisinopril 10 mg tablet 10 mg PO DAILY Qty: 30 RF: 0 sennosides-docusate sodium [Senna with Docusate Sodium] 8.6-50 mg Tablet 1 tab PO BID Qty: 30 RF: 0 Continued aspirin 81 mg Tablet,Chewable 81 mg PO DAILY RF: 0 atorvastatin 80 mg Tablet 80 mg PO DAILY RF: 0 metoprolol succinate [Toprol XL] 25 mg Tablet Extended Release 24 Hr 12.5 mg PO DAILY RF: 0 nitroglycerin [Nitrostat] 0.4 mg Tablet, Sublingual 0.4 mg Sublingual DIRECTED PRN (Reason: Chest Pain) RF: 0 omeprazole 20 mg Capsule,Delayed Release(Dr/Ec) 20 mg PO DAILY RF: 0 Calcium 600 + D(3) 600 mg calcium- 200 unit Capsule 1 cap PO DAILY RF: 0 Discontinued lisinopril 5 mg Tablet 5 mg PO DAILY RF: 0 Stand-Alone Forms: [facility] Discharge Orders: Discharge Order (Routine); Ordered 06/12/18 Ordered By: Andrés Montero Admission Data Admit Date/Time: 06/10/18 14:08 Attending Provider: Andrés Montero Admit Provider: Hitesh London Primary Care Provider: Remberto Lorenzo Other Providers: Matt Brunner Service: Telemetry Medical Other Interventions: Discharge Summary Assessment (RN) Last Done: 06/12/18 16:08 DC Date/Time DO NOT enter until pt leaves facility: 06/12/18 15:55
== END 2018-06-12 15:55 | disposition home health service (06) | DRG 418 ==
LOC: ED 03:43 → 2N 07:13 → INTOOBSV 07:13 → 2N 08:00

== ENCOUNTER 2020-02-23 13:23 | Observation (INO) ==
--- OUTSIDE RECORDS SUMMARY | 2020-02-23 13:26 | External Medical Summary | Continuity of Care Document ---
:1935 Author Name Christian Eubanks Address Unavailable Unavailable , Care Team Providers Name Role Phone Tammy Brunner M.D. Unavailable [email or web address] Unavailable Unavailable Unavailable Unavailable Unavailable Assessments Assessed Problems:Status post laparoscopic cholecystectomy Problems Cholelithiasis (574.20) (K80.20) Status post laparoscopic cholecystectomy (V45.89) (Z90.49) Allergies and Adverse Reactions No Known Drug Allergies (Allergy) Medications Aspirin Low Dose 81 MG Oral Tablet Delayed Release; TAKE 1 T ABLET DAILY. Start: 20-Jun-2018 Refills: 0 Omeprazole 40 MG Oral Capsule Delayed Release; TAKE 1 CAPSUL E TWICE DAILY. Start: 20-Jun-2018 Refills: 0 Lisinopril 10 MG Oral Tablet; TAKE 1/2 TABLET DAILY. Start: 20-Jun-2018 Refills: 0 15 Tablet Bottle Metoprolol Tartrate 25 MG Oral Tablet; TAKE 1/2 TABLET DAILY . Start: 20-Jun-2018 Refills: 0 Atorvastatin Calcium 80 MG Oral Tablet; TAKE 1 TABLET AT BED TIME. Start: 20-Jun-2018 Refills: 0 Nitroglycerin 0.4 MG Sublingual Tablet S ublingual; DISSOLVE 1 TABLET UNDER THE TONGUE NEEDED FOR CHEST PAIN. Start: 20-Jun-2018 Refills: 0 Procedures History of Eye Surgery Status: Completed History of Cholecystectomy Laparoscopic Status: Completed History of Heart Surgery Status: Complet ed Immunizations Immunizations not documented Family History Father Family history of hypertension (V17.49) (Z82.49) Status: Act omkar Plan of Treatment Planned Observations Planned Goals not documented Results No Known Results Results not documented Encounters Appointment; Surg [facility], Nursing Station 20-Jun-2018 8:45 Encounter Diagnosis: Problem not documented Appointment; Matt Brunner M.D. 10-Jul-2018 10:50 Encounter Diagnosis: Problem not documented
--- OUTSIDE RECORDS SUMMARY | 2020-02-23 13:26 | External Medical Summary | Continuity of Care Document ---
:1935 Author Name Christian Eubanks Address Unavailable Unavailable , Care Team Providers Name Role Phone Tammy Brunner M.D. Unavailable [email or web address] Unavailable Unavailable Unavailable Unavailable Unavailable Assessments Assessed Problems:Status post laparoscopic cholecystectomy Problems Status post laparoscopic cholecystectomy (V45.89) (Z90.49) Cholelithiasis (574.20) (K80.20) Allergies and Adverse Reactions No Known Drug Allergies (Allergy) Medications Nitroglycerin 0.4 MG Sublingual Tablet S ublingual; DISSOLVE 1 TABLET UNDER THE TONGUE NEEDED FOR CHEST PAIN. Start: 20-Jun-2018 Refills: 0 Atorvastatin Calcium 80 MG Oral Tablet; TAKE 1 TABLET AT BED TIME. Start: 20-Jun-2018 Refills: 0 Metoprolol Tartrate 25 MG Oral Tablet; TAKE 1/2 TABLET DAILY . Start: 20-Jun-2018 Refills: 0 Lisinopril 10 MG Oral Tablet; TAKE 1/2 TABLET DAILY. Start: 20-Jun-2018 Refills: 0 15 Tablet Bottle Omeprazole 40 MG Oral Capsule Delayed Release; TAKE 1 CAPSUL E TWICE DAILY. Start: 20-Jun-2018 Refills: 0 Aspirin Low Dose 81 MG Oral Tablet Delayed Release; TAKE 1 T ABLET DAILY. Start: 20-Jun-2018 Refills: 0 Procedures History of [...]
[2020-02-23] MEDS ORDERED: OPTIRAY 320 125ml IV ONE (14:09)
[2020-02-23 14:10] LABS: Basophils # (auto) 0.02 K/uL (0-0.2); Basophils % (auto) 0.3 %; Eosinophils # (auto) 0.23 K/uL (0-0.5); Hematocrit (blood only) 35.3 % (42-52); Hemoglobin 12.3 g/dL (14.0-18.0); Lymphocytes # (auto) 0.67 K/uL (1.2-3.4); Lymphocytes % (auto) 11.7 %; Mean Corpuscular Hemoglobin 31.4 pg (25-34); Mean Corpuscular Hgb Conc 34.8 g/dL (32-36); Mean Corpuscular Volume 90.1 fL (80-100); Mean Platelet Volume 10.5 fL (7.4-10.4); Monocytes # (auto) 0.62 K/uL (0.11-0.59); Monocytes % (auto) 10.8 %; Neutrophils # (auto) 4.21 K/uL (1.4-6.5); Neutrophils % (auto) 73.2 %; Platelet Count 195 K/uL (130-400); RDW Coefficient of Variation 12.7 % (11.5-14.5); RDW Standard Deviation 41.3 fL (36.4-46.3); Red Blood Count 3.92 M/uL (4.7-6.1); White Blood Count 5.75 K/uL (4.8-10.8)
[2020-02-23 14:16] LABS: iSTAT Creatinine 1.3 mg/dl (0.6-1.3); iSTAT Hemoglobin 11.2 g/dl (14.0-18.0); iSTAT Ionized Calcium 1.28 mmol/l (1.12-1.32); iSTAT Potassium 4.3 mmol/L (3.3-5.0)
--- NOTE | 2020-02-23 14:19 | CT Scan Report ---
CT head/brain wo con CLINICAL HISTORY: 84 years-old Male with Stroke evaluation . Acute strokelike symptoms TECHNIQUE: Multiple axial CT images of the head were obtained without contrast. A dose lowering tech nique was utilized adhering to the principles of ALARA. COMPARISON: CTA head and neck of same day FINDINGS: No acute intracranial hemorrhage, midline shift, intracranial mass, hydrocephalus, territorial ischem ia or abnormal extra-axial collection. Age-related involutional changes. Patchy white matter hypodens ities suggest chronic microvascular ischemic disease. Senescent calcifications of the lentiform nucle i. 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 The calvarium is intact. Minimal mucosal thickening of the ethmoid air cells. Mastoid air cells are clear. Soft tissues are unremarkable. Prior bilateral lens replacement. Disconjugate gaze. IMPRESSION: 1. No acute intracranial abnormality. 2. Remote right frontal lobe infarct. ACT 112: Negative or not required by law. The above report was generated using voice recognition software. It may contain grammatical, syntax o r spelling errors. Electronically signed by: Noble Stafford M.D. 02/23/2020 2:18 PM
[2020-02-23 14:21] LABS: Partial Thromboplastin Ratio 0.9; Partial Thromboplastin Time 26.2 Seconds (21.0-31.0); Prothrombin Time 10.9 Seconds (9.0-12.0)
[2020-02-23 14:32] LABS: Alanine Aminotransferase 37 U/L (12-78); Albumin Level 3.8 gm/dl (3.4-5.0); Anion Gap 0 (3-11); Aspartate Aminotransferase 25 U/L (15-37); BUN Creatinine Ratio 13.2 (10-20); Blood Urea Nitrogen 17 mg/dl (7-18); Calcium 9.3 mg/dl (8.5-10.1); Carbon Dioxide 29 mmol/L (21-32); Chloride 110 mmol/L (98-107); Est GFR (African American) 57.4; Est GFR (Non-African American) 49.5; Glucose 142 mg/dl (70-99); Magnesium 2.2 mg/dl (1.8-2.4); Potassium 4.3 mmol/L (3.5-5.1); Sodium 139 mmol/L (136-145)
--- NOTE | 2020-02-23 14:32 | Emergency Department Note ---
Impression & Plan Transient cerebral ischemia ED Provider Note NAME: CRYSTAL JONES AGE: 84 SEX: M : 1935 ARRIVES VIA: Walk-In INFORMANT: Patient, ED PROVIDER(S): Yusef Christian DO CHIEF COMPLAINT: Weakness HPI: The patient is an 84-year-old male who presented to the emergency department with his daughter for an evaluation of right upper extremity weakness. The patient states that he was eating a meal at approximately 1 PM and he noticed he could not pick up worker his eating utensil with his right hand. He felt significant weakness and unable to contract attorney with his right hand. He also states that his right hand feels somewhat numb and tingly. He states that he is never had similar symptoms in the past. His daughter who presents with him and gives partial history also states that the patient was having difficulty speaking at the time. His symptoms seem to be improving at this time. He states that he feels somewhat back to baseline. He denies having any headache or recent falls. He denies having any chest pain or difficulty breathing. He has had no lower extremity swelling or weight loss. ROS: See above HPI for pertinent positives & negatives. A total of 10 systems reviewed and were otherwise negative. PAST MEDICAL HISTORY: See Below PAST SURGICAL HISTORY: See Below FAMILY HISTORY: See Below SOCIAL HISTORY: See Below HOME MEDICATIONS: See Below ALLERGIES: See Below VITALS: See Below PHYSICAL EXAMINATION: GENERAL: Patient is awake alert in no acute distress patient is resting comfortably and showing no signs of anxiety EYES: The conjunctivae are clear. 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 EARS, NOSE, MOUTH AND THROAT: The nose is without any evidence of any deformity. NECK: The neck is nontender and supple. RESPIRATORY: Normal respiratory effort is noted there is no evidence of wheezing rhonchi or rales CARDIOVASCULAR: Regular rate and rhythm was noted to auscultation. Systolic murmur was suggested. GASTROINTESTINAL: The abdomen is soft. Abdomen is nontender. MUSCULOSKELETAL/EXTREMITIES: There is no evidence of gross deformity full range of motion is noted in the hips and shoulders. SKIN: There is no obvious evidence of any rash. Pulses are symmetric in both feet. NEUROLOGIC: Patient is awake alert and oriented x3. Patient is able to hold each leg off of the bed for greater than 5 seconds. There was a slight drift in the right upper extremity with diminished contract attorney strength in the right upper extremity. No facial droop was noted. MEDICAL DECISION MAKING: The patient is an 84-year-old male who presented to the emergency department for an evaluation of right upper extremity weakness. The patient presented to the e mergeaky department with his daughter. The patient had very significant symptoms of speech difficulty and right upper extremity weakness. His symptoms were almost completely resolved when he arrived at the emergency department. Since he was inside the 3-hour window he was made a stroke alert after my evaluation. The patient was evaluated by the telestroke neurologist. During that time his symptoms continue to improve. Plain CT showed no acute disease however CT angiography did show significant cerebrovascular disease with carotid artery disease as well. He does appear to be very high risk. For this reason the neurologist did recommend Plavix loading. I discussed the patient's labora tory and radiographic studies with him and his daughter. I will also discussed this case with the [facility] hospitalist group for further evaluation and inpatient management. Triage Nursing notes reviewed. Prior medical records reviewed Vital Signs: reviewed and remarkable for elevated blood pressure. Differential diagnosis: Infection, dehydration, metabolic abnormality, hypo/hyperglycemia, electrolyte disturbance, anemia, hypoxia, cardiac sources, intracerebral event, toxicologic, neurologic, as well as other pathologies. ER treatment provided: See below Diagnostics interpreted by me: ECG: EKG was obtained in the emergency department. My interpretation is sinus rhythm at 61 bpm. PACs were noted. LVH was noted by voltage criteria. There was no acute ST segment abnormalities noted. This was compared to a tracing from June 092018. No significant changes were noted. Cardiac Monitoring: An order was placed for continuous cardiac monitoring. The monitor shows a rate of 65 beats per minute with sinus rhythm. Laboratory studies: As stated above and show below. Imaging studies: See below Consultation(s): 1405: I discussed this case with Dr. Chaves who was on-call for [place] [facility]. She will evaluate the patient. 1544: I discussed this case with Dr. Carey. ED COURSE: Procedures: none PDMP:reviewed and no issues Critical Care: I have personally spent greater than 45 minutes of critical care time in the direct management of this patient. This includes bedside care, interpretation of diagnostic studies, and testing, discussion with consultants, patient, and family members, and other required patient management activities. This 45 minutes is in excess of all separately billable procedures. 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" Surgical History H/O heart surgery Family History Other Cancer Diabetes Heart disease Hypertension Social History Smoking Status: Former smoker Second Hand Exposure: No; Hx Alcohol Use: No Hx Substance Use: No Preferred Language: Ukrainian Communication Ability: Effective Tung Nut Grower Required: No Beliefs That Will Affect Care: None Current Living Situation: Alone current occupational status: retired Feels Safe at Home: Yes Assistive Devices: Walker Allergies Allergies Allergy/AdvReac Type Severity Reaction Status Date / Time No Known Allergies Allergy Unknown Verified 01/09/12 13:20 Home Meds Home Medications Medication Instructions Recorded Confirmed Calcium 600 + D(3) 1 cap PO DAILY 06/09/18 02/23/20 aspirin 81 mg PO DAILY 06/09/18 02/23/20 atorvastatin 80 mg PO DAILY 06/09/18 02/23/20 metoprolol succinate [Toprol XL] 12.5 mg PO DAILY 06/09/18 02/23/20 nitroglycerin [Nitrostat] 0.4 mg SUBLINGUAL DIRECTED PRN 06/09/18 02/23/20 omeprazole 20 mg PO BID 06/09/18 02/23/20 lisinopril 5 mg PO DAILY 02/23/20 02/23/20 Results & Data (ED) Vital Signs Vital Signs - 24 hr 02/23/20 13:26 02/23/20 14:15 02/23/20 15:05 Temperature 36.8 C Temperature Source Oral Pulse Rate 90 62 59 L Pulse Rate from SpO2 Sensor 59 L Respiratory Rate 20 27 H 22 Respiratory Depth Normal Blood Pressure 181/92 H 164/75 H 180/97 H Blood Pressure Mean 121 100 122 Pulse Oximetry 99 97 97 Oxygen Delivery Method Room Air Room Air Sepsis Recent Fever Within 48 Hours No Sepsis New/Unexplained Change in Mental Status N/A Sepsis Action Taken by Nursing No Action Required Home Medications Current Medication List: was personally reviewed by me Laboratory Data Result diagrams: 02/23/20 14:00 02/23/20 14:00 Lab Results 02/23/20 02/23/20 02/23/20 Range/Units 14:00 14:00 14:00 WBC 5.75 (4.8-10.8) K/uL RBC 3.92 L (4.7-6.1) M/uL Hgb 12.3 L (14.0-18.0) g/dL POC Hgb (14.0-18.0) g/dl Hct 35.3 L (42-52) % POC Hct (42-52) % MCV 90.1 (80-100) fL MCH 31.4 (25-34) pg MCHC 34.8 (32-36) g/dL RDW Std Deviation 41.3 (36.4-46.3) fL RDW Coeff of Roderick 12.7 (11.5-14.5) % Plt Count 195 (130-400) K/uL MPV 10.5 H (7.4-10.4) fL Immature Gran % (Auto) 0.0 % Neut % (Auto) 73.2 % Lymph % (Auto) 11.7 % [place] % (Auto) 10.8 % Eos % (Auto) 4.0 % Baso % (Auto) 0.3 % Neut # (Auto) 4.21 (1.4-6.5) K/uL Lymph # (Auto) 0.67 L (1.2-3.4) K/uL [place] # (Auto) 0.62 H (0.11-0.59) K/uL Eos # (Auto) 0.23 (0-0.5) K/uL Baso # (Auto) 0.02 (0-0.2) K/uL Immature Gran # (Auto) 0.00 (0.00-0.02) K/uL PT 10.9 (9.0-12.0) Seconds INR 1.0 (0.9-1.1) APTT 26.2 (21.0-31.0) Seconds PTT Ratio 0.9 POC Sodium (135-144) mmol/L Sodium 139 (136-145) mmol/L POC Potassium (3.3-5.0) mmol/L Potassium 4.3 (3.5-5.1) mmol/L POC Chloride (101-112) mmol/L Chloride 110 H (98-107) mmol/L Carbon Dioxide 29 (21-32) mmol/L POC Total CO2 (24-31) mmol/L Anion Gap 0 L (3-11) POC Anion Gap (16-25) mmol/L POC BUN (7-18) mg/dl BUN 17 (7-18) mg/dl Creatinine 1.32 (0.6-1.4) mg/dl POC Creatinine (0.6-1.3) mg/dl Est Cr Clr Drug Dosing 41.0 ml/min Est GFR ( Amer) 57.4 Est GFR (Non-Af Amer) 49.5 BUN/Creatinine Ratio 13.2 (10-20) Glucose 142 H (70-99) mg/dl POC Glucose (other) (70-99) mg/dl Calcium 9.3 (8.5-10.1) mg/dl POC Ioniz Calcium Alec (1.12-1.32) mmol/l Magnesium 2.2 (1.8-2.4) mg/dl Total Bilirubin 0.7 (0.2-1) mg/dl AST 25 (15-37) U/L ALT 37 (12-78) U/L Alkaline Phosphatase 80 (45-117) U/L Troponin I < 0.015 (0-0.045) ng/ml Total Protein 7.3 (6.4-8.2) gm/dl Albumin 3.8 (3.4-5.0) gm/dl Globulin 3.5 (2.5-4.0) gm/dl Albumin/Globulin Ratio 1.1 (0.9-2) /15/ Range/Units 14:02 WBC (4.8-10.8) K/uL RBC (4.7-6.1) M/uL Hgb (14.0-18.0) g/dL POC Hgb 11.2 L (14.0-18.0) g/dl Hct (42-52) % POC Hct 33 L (42-52) % MCV (80-100) fL MCH (25-34) pg MCHC (32-36) g/dL RDW Std Deviation (36.4-46.3) fL RDW Coeff of Roderick (11.5-14.5) % Plt Count (130-400) K/uL MPV (7.4-10.4) fL Immature Gran % (Auto) % Neut % (Auto) % Lymph % (Auto) % [place] % (Auto) % Eos % (Auto) % Baso % (Auto) % Neut # (Auto) (1.4-6.5) K/uL Lymph # (Auto) (1.2-3.4) K/uL [place] # (Auto) (0.11-0.59) K/uL Eos # (Auto) (0-0.5) K/uL Baso # (Auto) (0-0.2) K/uL Immature Gran # (Auto) (0.00-0.02) K/uL PT (9.0-12.0) Seconds INR (0.9-1.1) APTT (21.0-31.0) Seconds PTT Ratio POC Sodium 140 (135-144) mmol/L Sodium (136-145) mmol/L POC Potassium 4.3 (3.3-5.0) mmol/L Potassium (3.5-5.1) mmol/L POC Chloride 105 (101-112) mmol/L Chloride (98-107) mmol/L Carbon Dioxide (21-32) mmol/L POC Total CO2 26 (24-31) mmol/L Anion Gap (3-11) POC Anion Gap 15.0 L (16-25) mmol/L POC BUN 17 (7-18) mg/dl BUN (7-18) mg/dl Creatinine (0.6-1.4) mg/dl POC Creatinine 1.3 (0.6-1.3) mg/dl Est Cr Clr Drug Dosing ml/min Est GFR ( Amer) Est GFR (Non-Af Amer) BUN/Creatinine Ratio (10-20) Glucose (70-99) mg/dl POC Glucose (other) 145 H (70-99) mg/dl Calcium (8.5-10.1) mg/dl POC Ioniz Calcium Alec 1.28 (1.12-1.32) mmol/l Magnesium (1.8-2.4) mg/dl Total Bilirubin (0.2-1) mg/dl AST (15-37) U/L ALT (12-78) U/L Alkaline Phosphatase (45-117) U/L Troponin I (0-0.045) ng/ml Total Protein (6.4-8.2) gm/dl Albumin (3.4-5.0) gm/dl Globulin (2.5-4.0) gm/dl Albumin/Globulin Ratio (0.9-2) Administered Medications Discontinued Medications Clopidogrel Bisulfate (Clopidogrel Bisulfate 300 Mg Tab) 300 mg PO NOW STA Stop: 02/23/20 14:54 Last Admin: 02/23/20 14:59 Dose: 300 mg Documented by: [id number] Ioversol (Optiray 320 125ml) 120 ml IV ONCE ONE Stop: 02/23/20 14:10 Last Admin: 02/23/20 14:10 Dose: 120 ml Documented by: [id number] Imaging Data Radiologist's Impression: Patient: CRYSTAL JONES Admit Date: 02/23/20 MR#: [id number] Address1: [address] [place] [address] Acct ID:[id number] Address2: Date: 1935 [facility] Zip: [place] [address] Age: 84 Location: ED Sex: M Room/Bed: Att Phy: Diagnosis: RT ARM LIMP, TROUBLE SEEING [place] Phy: Joaquin Ramirez DO Service Date: 02/23/20 [facility] Phy: Interpreting Phy: Doe Stafford Admit Phy: Ordering Phy: Yusef Christian DO cc: ~ CT angio neck with con, CT angio head w con CLINICAL HISTORY: 84 years-old Male with Stroke evaluation. Acute strokelike symptoms. History of lymphoma. COMPARISON STUDY: Head CT of same day TECHNIQUE: Following the IV administration of 120 mL of Optiray 320, CT angiogram of the head and neck was performed from the aortic arch to the skull apex. Images are reviewed in the axial, sagittal, and coronal planes. 3-D MIPS images are created and assessed. IV contrast was administered without complication. All measurements were calculated based on NASCET criteria. A dose lowering technique was utilized adhering to the principles of ALARA. CT DOSE: 1103.10 mGy.cm FINDINGS: Moderate mixed plaque of the thoracic aortic arch. Eccentric moderate sized seema que involves the medial wall of the left subclavian artery on image 43 series 6. Innominate and imaged subclavian arteries appear patent. Moderate mixed plaque of the distal common carotid arteries with severe mixed plaque of the carotid bulbs and proximal internal carotid arteries, right greater than left. This results in less than 50% stenosis of the bilateral internal carotid arteries. There is high-grade stenosis at the proximal right external iliac artery. Mild calcified plaque of the cavernous and supraclinoid segments. The middle and anterior cerebral arteries are patent. Codominant and patent vertebral arteries. Calcified plaque at the origin of the vertebral arteries causes no significant stenosis. The bilateral vertebral arteries are patent. The basilar and posterior cerebral arteries are also widely patent. No aneurysm, dissection, high-grade stenosis or proximal branch occlusion. Cerebral venous sinuses are patent. The posterior aspect of the superior sagittal sinus appears hypoplastic and heterogeneous with calcifications noted on the precontrast images. There is no abnormal enhancement. Remote infarct of the right frontal lobe. Partially imaged 5 mm solid nodule of the apical right upper lobe. Mild pleural parenchymal biapical scarring. No pneumothorax. There is no adenopathy or prevertebral edema. IMPRESSION: 1. 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 2. High-grade stenosis at the origin of the right external carotid artery 3. 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 No definite acute thrombus identified on today's study. 4. Remote infarct of the right frontal lobe. ACT 112: Negative or not required by law. The above report was generated using voice recognition software. It may contain grammatical, syntax or spelling errors. Electronically signed by: Noble Stafford M.D. 02/23/2020 2:38 PM Dictated: 02/23/201426 Transcribed: 02/23/201426 Patient: CRYSTAL JONES Admit Date: 02/23/20 MR#: [id number] Address1: [address] Acct ID:[id number] Address2: Date: 1935 [facility] Zip: [place] [address] Age: 84 Location: ED Sex: M Room/Bed: Att Phy: Diagnosis: RT ARM LIMP, TROUBLE SEEING [place] Phy: Remberto Lorenzo DO Service Date: 02/23/20 [facility] Phy: Interpreting Phy: Doe Stafford Admit Phy: Ordering Phy: Yusef Christian DO cc: ~ CT head/brain wo con CLINICAL HISTORY: 84 years-old Male with Stroke evaluation . Acute strokelike symptoms TECHNIQUE: Multiple axial CT images of the head were obtained without contrast. A dose lowering technique was utilized adhering to the principles of ALARA. COMPARISON: CTA head and neck of same day FINDINGS: No acute intracranial hemorrhage, midline shift, intracranial mass, hydrocephalus, territorial ischemia or abnormal extra-axial collection. Age- related involutional changes. Patchy white matter hypodensities suggest chronic microvascular ischemic disease. Senescent calcifications of the lentiform nuclei. 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 The calvarium is intact. Minimal mucosal thickening of the ethmoid air cells. Mastoid air cells are clear. Soft tissues are unremarkable. Prior bilateral lens replacement. Disconjugate gaze. IMPRESSION: 1. No acute intracranial abnormality. 2. Remote right frontal lobe infarct. ACT 112: Negative or not required by law. The above report was generated using voice recognition software. It may contain grammatical, syntax or spelling errors. Electronically signed by: Noble Stafford M.D. 02/23/2020 2:18 PM Dictated: 02/23/20 1415 Transcribed: 02/23/20 141 Blood Pressure Blood Pressure Findings: Elevated blood pressure Blood Pressure Disposition: further management by hospitalist Discharge Plan Visit Data Chief Complaint: Neuro Symptoms/Deficit Stated Complaint: RT ARM LIMP, TROUBLE SEEING ED Provider: Yusef Christian Discharge Problem: Transient cerebral ischemia Patient Disposition: Being Evaluated by Hospitalist Condition: Good Forms Stand Alone Forms: My [facility] [employer] Prescriptions Prescriptions: No Action aspirin 81 mg Tablet,Chewable 81 mg PO DAILY RF: 0 atorvastatin 80 mg Tablet 80 mg PO DAILY RF: 0 metoprolol succinate [Toprol XL] 25 mg Tablet Extended Release 24 Hr 12.5 mg PO DAILY RF: 0 nitroglycerin [Nitrostat] 0.4 mg Tablet, Sublingual 0.4 mg Sublingual DIRECTED PRN (Reason: Chest Pain) RF: 0 omeprazole 20 mg Capsule,Delayed Release(Dr/Ec) 20 mg PO BID RF: 0 Calcium 600 + D(3) 600 mg calcium- 200 unit Capsule 1 cap PO DAILY RF: 0 lisinopril 5 mg tablet 5 mg PO DAILY RF: 0 Referrals Referrals: Joaquin Ramirez DO [Primary Care Provider] - Discharge Problem: Transient cerebral ischemia Qualifiers: Transient cerebral ischemia type: unspecified Qualified Code(s): G45.9 - Transient cerebral ischemic attack, unspecified
[2020-02-23 14:37] LABS: Albumin Globulin Ratio 1.1 (0.9-2); Alkaline Phosphatase 80 U/L (45-117); Bilirubin,Total 0.7 mg/dl (0.2-1); Globulin 3.5 gm/dl (2.5-4.0); Total Protein 7.3 gm/dl (6.4-8.2); Troponin I < 0.015 ng/ml (0-0.045)
--- NOTE | 2020-02-23 14:39 | CT Scan Report ---
CT angio neck with con, CT angio head w con CLINICAL HISTORY: 84 years-old Male with Stroke evaluation. Acute strokelike symptoms. History of lymphoma. COMPARISON STUDY: Head CT of same day TECHNIQUE: Following the IV administration of 120 mL of Optiray 320, CT angiogram of the head and nec k was performed from the aortic arch to the skull apex. Images are reviewed in the axial, sagittal, a nd coronal planes. 3-D MIPS images are created and assessed. IV contrast was administered without com plication. All measurements were calculated based on NASCET criteria. A dose lowering technique was utilized adhering to the principles of ALARA. CT DOSE: 1103.10 mGy.cm FINDINGS: Moderate mixed plaque of the thoracic aortic arch. Eccentric moderate sized plaque involves the media l wall of the left subclavian artery on image 43 series 6. Innominate and imaged subclavian arteries appear patent. Moderate mixed plaque of the distal common carotid arteries with severe mixed plaque o f the carotid bulbs and proximal internal carotid arteries, right greater than left. This results in less than 50% stenosis of the bilateral internal carotid arteries. There is high-grade stenosis at th e proximal right external iliac artery. Mild calcified plaque of the cavernous and supraclinoid segme nts. The middle and anterior cerebral arteries are patent. Codominant and patent vertebral arteries. Calcified plaque at the origin of the vertebral arteries causes no significant stenosis. The bilatera l vertebral arteries are patent. The basilar and posterior cerebral arteries are also widely patent. No aneurysm, dissection, high-grade stenosis or proximal branch occlusion. Cerebral venous sinuses ar e patent. The posterior aspect of the superior sagittal sinus appears hypoplastic and heterogeneous w ith calcifications noted on the precontrast images. There is no abnormal enhancement. Remote infarct of the right frontal lobe. Partially imaged 5 mm solid nodule of the apical right upper lobe. Mild pleural parenchymal biapical scarring. No pneumothorax. There is no adenopathy or prevertebral edema. IMPRESSION: 1. 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 2. High-grade stenosis at the origin of the right external carotid artery 3. Calcifications within the posterior aspect of the superior sagittal sinus with diminished venous f low may reflect sequela of chronic venous sinus thrombosis. No definite acute thrombus identified on today's study. 4. Remote infarct of the right frontal lobe. ACT 112: Negative or not required by law. The above report was generated using voice recognition software. It may contain grammatical, syntax o r spelling errors. Electronically signed by: Noble Stafford M.D. 02/23/2020 2:38 PM
[2020-02-23] MEDS ORDERED: CLOPIDOGREL BISULFATE 300 MG TAB PO STA (14:53)
--- NOTE | 2020-02-23 15:19 | History & Physical Report ---
Date of Service February 23, 2020 Assessment & Plan (1) Stroke-like symptoms: Presented to ED with RUE weakness / clumsiness. Symptoms lasted for about 30-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 CTA neck shows significant plaque bilat ICA's without high-grade stenoses. [place]estroke [place] with [facility] Already on aspirin for CAD. TPA not recommended in light of improving symptoms. Antiplatelet therapy with clopidogrel recommended. Passed dysphagia screen in ED. Further evaluation and management per stroke protocol. Cardiac monitoring. Echo. Lipid profile. PT / OT / AREA COUNSELOR evals. Consult Neuro. (2) Carotid artery disease: CTA neck shows significant plaque bilat ICA's without high-grade stenoses. Antiplatelet therapy and lipid management. Follow. (3) Coronary artery disease: Remote history of [place] with coronary stent placement. Continue antiplatelet therapy, metoprolol, lisinopril, statin. (4) Hypertension: Hemodynamically stable. Continue metoprolol and lisinopril. (5) Dyslipidemia: Check lipid profile. Continue high-intensity statin therapy with atorvastatin 80 mg daily. (6) Do not resuscitate status: Per advance directives. (7) DVT prophylaxis: SQ enoxaparin. Ambulate. (8) Discharge planning issues: Anticipated discharge to home. Family Medicine follow-up with Dr. Ramirez. History of Present Illness Chief Complaint: weakness right arm Primary Care Provider: Joaquin Ramirez DO 84 YO male followed by Dr. Ramirez. History of coronary artery disease, carotid artery disease, cerebrovascular disease (noted in clinic EMR, but pt does not recall history), dyslipidemia, and other problems noted below. Lives at home and stays active. He was eating lunch with his daughter today and began having difficulty holding his fork with his right hand. Knocked over a glass of water but was unaware that he did. No headache. No dysarthria, aphasia, facial palsy. No other focal neurologic symptoms. Daughter brought him to ED and he arrived about 30 min after onset of symptoms. Persistent RUE weakness upon arrival to ED. Stroke alert called. CT head showed old infarct right frontal lobe, no acute ischemic or hemorrhagic events. CTA cervical vessels showed severe bilateral ICA plaque with < 50% stenosis; high grade stenosis at origin of right external carotid noted. CTA intracranial vessels showed plaque without significant stenosis. Telestroke consult obtained with [facility]. Already on aspirin for CAD. TPA not recommended in light of improving symptoms. Antiplatelet therapy with clopidogrel recommended. At the time of my assessment, patient felt well and his RUE weakness had resolved. Allergies Allergy/AdvReac Type Severity Reaction Status Date / Time No Known Allergies Allergy Unknown Verified 02/23/20 16:24 Home Medications Home Medications Medication Instructions Recorded Confirmed Type aspirin 81 mg PO DAILY 06/09/18 02/23/20 History atorvastatin 80 mg PO QAM 06/09/18 02/23/20 History metoprolol succinate [Toprol XL] 12.5 mg PO DAILY 06/09/18 02/23/20 History nitroglycerin [Nitrostat] 0.4 mg SUBLINGUAL DIRECTED PRN 06/09/18 02/23/20 History omeprazole 20 mg PO DAILY 06/09/18 02/23/20 History lisinopril 5 mg PO DAILY 02/23/20 02/23/20 History multivitamin 1 tab PO DAILY 02/23/20 02/23/20 History Past Med/Surg History Medical History (Updated 02/23/20 @ 17:09 by Oscar Carey MD) Carotid artery disease Coronary artery disease Do not resuscitate status Per pt's advance directives. 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 Brunner Status post coronary artery stent placement Family History (Updated 02/23/20 @ 16:54 by Oscar Carey MD) Mother Heart disease Father Myocardial infarction Sister Cancer ? GI Other Diabetes Hypertension Social History Smoking Status: Former smoker Smoking End Date: 1978; Second Hand Exposure: No; Do You Dip or Chew Tobacco: No; Tobacco Cessation Education Requested by Patient: No Hx Alcohol Use: No Hx Substance Use: No Preferred Language: Uruguayan Communication Ability: Effective Delivery Clerk Required: No Beliefs That Will Affect Care: None Current Living Situation: Family current occupational status: retired Other Information That Helps Us Care for You: No Feels Safe at Home: Yes Safety Concerns: Feels Safe At This Time Assistive Devices: Cane, Denture - Upper, Denture - Lower, Glasses and Walker Review of Systems Constitutional: no fever and no weight loss Eyes: no diplopia and no worsening vision 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 Ear, Nose, Mouth, Throat: no nasal congestion, no sinus pain/pressure and no sore throat Respiratory: no cough and no dyspnea Cardiovascular: no chest pain, no palpitations and no edema Gastrointestinal: no nausea, no vomiting, no constipation, no diarrhea/loose stools, no blood in stools and no melena Musculoskeletal: + joint pain (mild); no myalgia Integumentary: no rash and no new lesions Neurologic: as per Subjective / HPI Endocrine: no polydipsia and no polyuria Hematologic / Lymphatic: no easy bleeding, no easy bruising and no lymphadenopathy Physical Exam Physical Exam: VS- as noted Constitutional- well nourished; no acute distress Eyes- left eye: corneal opacity; right eye: pupil reactive, anicteric, normal conjunctiva ENMT- external ear and nose normal; oropharynx clear; upper and lower dentures Neck- trachea midline; no thyromegaly Respiratory- no respiratory distress; lungs clear Cardiovascular- RRR, II/ murmur at base, no gallop/rub; no JVD; no pretibial edema; normal capillary refill; bilateral carotid bruits; pedal pulses diminished Chest- no abnormalities Abdomen- normal bowel sounds, soft, nontender, nondistended; no palpable masses or hepatosplenomegaly Musculoskeletal- no cyanosis Skin- warm & dry; normal color; no rashes Neurologic- no facial palsy; no dysarthria or aphasia; motor strength extremities intact; patellar DTR's 2/2 bilaterally; plantar reflexes downgoing Psychiatric- alert, oriented x 3; normal affect Lymphatic- no cervical adenopathy Results & Data Results & Data ([facility]) Vital Signs (Past 12 Hours) Vital Signs Temp Pulse Resp BP Pulse Ox 02/23/20 15:05 59 L 22 180/97 H 97 02/23/20 14:15 62 27 H 164/75 H 97 02/23/20 13:26 36.8 C 90 20 181/92 H 99 Laboratory Results Laboratory Results - last 24 hr 02/23/20 02/23/20 02/23/20 14:00 14:00 14:00 WBC 5.75 RBC 3.92 L Hgb 12.3 L POC Hgb Hct 35.3 L POC Hct MCV 90.1 MCH 31.4 MCHC 34.8 RDW Std Deviation 41.3 RDW Coeff of Roderick 12.7 Plt Count 195 MPV 10.5 H Immature Gran % (Auto) 0.0 Neut % (Auto) 73.2 Lymph % (Auto) 11.7 [place] % (Auto) 10.8 Eos % (Auto) 4.0 Baso % (Auto) 0.3 Neut # (Auto) 4.21 Lymph # (Auto) 0.67 L [place] # (Auto) 0.62 H Eos # (Auto) 0.23 Baso # (Auto) 0.02 Immature Gran # (Auto) 0.00 PT 10.9 INR 1.0 APTT 26.2 PTT Ratio 0.9 POC Sodium Sodium 139 POC Potassium Potassium 4.3 POC Chloride Chloride 110 H Carbon Dioxide 29 POC Total CO2 Anion Gap 0 L POC Anion Gap POC BUN BUN 17 Creatinine 1.32 POC Creatinine Est Cr Clr Drug Dosing 41.0 Est GFR ( Amer) 57.4 Est GFR (Non-Af Amer) 49.5 BUN/Creatinine Ratio 13.2 Glucose 142 H POC Glucose (other) Calcium 9.3 POC Ioniz Calcium Alec Magnesium 2.2 Total Bilirubin 0.7 AST 25 ALT 37 Alkaline Phosphatase 80 Troponin I < 0.015 Total Protein 7.3 Albumin 3.8 Globulin 3.5 Albumin/Globulin Ratio 1.1 02/23/20 14:02 WBC RBC Hgb POC Hgb 11.2 L Hct POC Hct 33 L MCV MCH MCHC RDW Std Deviation RDW Coeff of Roderick Plt Count MPV Immature Gran % (Auto) Neut % (Auto) Lymph % (Auto) [place] % (Auto) Eos % (Auto) Baso % (Auto) Neut # (Auto) Lymph # (Auto) [place] # (Auto) Eos # (Auto) Baso # (Auto) Immature Gran # (Auto) PT INR APTT PTT Ratio POC Sodium 140 Sodium POC Potassium 4.3 Potassium POC Chloride 105 Chloride Carbon Dioxide POC Total CO2 26 Anion Gap POC Anion Gap 15.0 L POC BUN 17 BUN Creatinine POC Creatinine 1.3 Est Cr Clr Drug Dosing Est GFR ( Amer) Est GFR (Non-Af Amer) BUN/Creatinine Ratio Glucose POC Glucose (other) 145 H Calcium POC Ioniz Calcium Alec 1.28 Magnesium Total Bilirubin AST ALT Alkaline Phosphatase Troponin I Total Protein Albumin Globulin Albumin/Globulin Ratio Diagnostic Findings PORTABLE CHEST X-RAY IMPRESSION: 1. No acute process. 2. Mild left hemidiaphragmatic elevation with left lung base atelectasis. Electronically signed by: Noble Stafford M.D. 02/23/2020 3:[address] HEAD IMPRESSION: 1. No acute intracranial abnormality. 2. Remote right frontal lobe infarct. Electronically signed by: Noble Stafford M.D. 02/23/2020 2:18 PM CTA HEAD AND NECK IMPRESSION: 1. 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 2. High-grade stenosis at the origin of the right external carotid artery 3. 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 No definite acute thrombus identified on today's study. 4. Remote infarct of the right frontal lobe. Electronically signed by: Noble Stafford M.D. 02/23/2020 2:38 PM ECG Additional Comments: EKG performed at 1353 reviewed and demonstrated sinus rhythm with sinus arrhythmia at 60 / min, LVH, no acute changes. Code Status & VTE Plan Code Status Advance directives discussed with patient and his daughter. He has a living will. He does not wish to have resuscitation attempted in the event of a cardiopulmonary arrest (he has had acquaintances who had CPR with poor outcomes). Resuscitation status is DNR. VTE Prophylaxis Plan VTE Prophylaxis will be ordered: Yes
--- NOTE | 2020-02-23 15:41 | XRay Report ---
XR chest 1V portable HISTORY: 84 years-old Male CVA acute strokelike symptoms COMPARISON: Chest radiograph 06/09/2018, CT abdomen and pelvis 2018 TECHNIQUE: Portable AP view of the chest FINDINGS: Cardiac silhouette is upper limits of normal in size. Mild left hemidiaphragmatic elevation. Opacity of the medial right lung base suggests prominent epicardial fat pad. No pneumothorax, pleural effusio n or overt pulmonary edema. Mild subsegmental left lung base opacities. Degenerative changes of the s houlders and spine. IMPRESSION: 1. No acute process. 2. Mild left hemidiaphragmatic elevation with left lung base atelectasis. ACT 112: Negative or not required by law. The above report was generated using voice recognition software. It may contain grammatical, syntax o r spelling errors. Electronically signed by: Noble Stafford M.D. 02/23/2020 3:40 PM
[2020-02-23] MEDS ORDERED: ACETAMINOPHEN 325 MG TAB PO PRN (17:20)
[2020-02-23] MEDS ORDERED: PHARMACIST DISCHARGE MED REC CONSULT PRN (17:20)
[2020-02-23] MEDS ORDERED: NITROGLYCERIN SL 0.4 MG/TAB TAB SL PRN (17:20)
--- NOTE | 2020-02-23 20:31 | Electrocardiogram Report ---
Test Reason : Blood Pressure : / mmHG Vent. Rate : 061 BPM Atrial Rate : 061 BPM P-R Int : 236 ms QRS Dur : 100 ms QT Int : 406 ms P-R-T Axes : 013 -25 022 degrees QTc Int : 408 ms Sinus rhythm with marked sinus arrhythmia with 1st degree A-V block Voltage criteria for left ventricular hypertrophy Abnormal ECG When compared with ECG of 09-JUN-2018 03:48, No significant change was found Confirmed by Abhilash Dang ([id number]) on 02/23/2020 8:31:01 PM Referred By: REFERRED SELF Confirmed By:Abhilash Dang
[2020-02-23] MEDS: ENOXAPARIN INJ 40 MG/0.4 ML SYR SQ SCH (22:44)
[2020-02-24 08:06] LABS: Basophils # (auto) 0.02 K/uL (0-0.2); Basophils % (auto) 0.3 %; Eosinophils # (auto) 0.16 K/uL (0-0.5); Hematocrit (blood only) 38.3 % (42-52); Hemoglobin 13.3 g/dL (14.0-18.0); Lymphocytes # (auto) 0.73 K/uL (1.2-3.4); Lymphocytes % (auto) 9.2 %; Mean Corpuscular Hemoglobin 30.9 pg (25-34); Mean Corpuscular Hgb Conc 34.7 g/dL (32-36); Mean Corpuscular Volume 89.1 fL (80-100); Mean Platelet Volume 10.4 fL (7.4-10.4); Monocytes # (auto) 0.83 K/uL (0.11-0.59); Monocytes % (auto) 10.5 %; Platelet Count 227 K/uL (130-400); RDW Coefficient of Variation 12.6 % (11.5-14.5); RDW Standard Deviation 40.8 fL (36.4-46.3); White Blood Count 7.94 K/uL (4.8-10.8)
[2020-02-24] MEDS: ATORVASTATIN 40 MG TAB PO SCH (08:33)
[2020-02-24] MEDS: lisinopril 5 MG TAB PO SCH (08:34)
[2020-02-24] MEDS: METOPROLOL SUCC 25MG EXT REL TAB PO SCH (08:34)
[2020-02-24] MEDS: PANTOprazole 40 MG TAB PO SCH (08:34)
[2020-02-24] MEDS: ASPIRIN 81 MG ECTAB PO SCH (08:34)
[2020-02-24] MEDS: CLOPIDOGREL BISULFATE 75 MG TAB PO SCH (08:35)
[2020-02-24 08:43] LABS: Estimated Average Glucose 103 mg/dl; Hemoglobin A1C 5.2 % (4.5-5.6)
[2020-02-24 09:40] LABS: BUN Creatinine Ratio 11.6 (10-20); Calcium 9.3 mg/dl (8.5-10.1); Creatinine Clr Calc Pharmacy 42.6 ml/min; Est GFR (African American) 60.2; Est GFR (Non-African American) 51.9
--- NOTE | 2020-02-24 12:10 | XRay Report ---
ORBIT RADIOGRAPHS 3 VIEWS HISTORY: pre-MRI screening. COMPARISON: None. FINDINGS: There are no radiopaque foreign bodies identified within the orbits. IMPRESSION: No radiopaque foreign bodies identified within the orbits. ACT 112: Negative or not required by law. Electronically signed by: Gildardo Alves M.D. 02/24/2020 12:08 PM
--- NOTE | 2020-02-24 13:42 | Magnetic Resonance Report ---
MR brain wo con HISTORY: 84 years-old Male stroke-like symptoms (RUE / hand weakness) acute strokelike symptoms COMPARISON: CT head, CTA head and neck studies of same day TECHNIQUE: Multiplanar multisequence MRI of the brain was obtained without the use of IV contrast. FINDINGS: [employer] localizer images demonstrate no gross extracranial abnormality. There is no restricted diffusio n to suggest acute or subacute infarct. The midline structures including the corpus callosum, brainst em, optic chiasm, pituitary and pineal glands appear unremarkable on the sagittal T1 series. There is no cerebellar tonsillar herniation. Degenerative changes are noted involving the imaged cervical spi ne. There is no acute intracranial hemorrhage, midline shift, abnormal extra axial collection, hydrocepha jimmie or intracranial mass. No pathologic blooming artifact on the gradient echo series. Age-related in volutional changes with mild ex vacuo ventriculomegaly. Moderate scattered T2/FLAIR hyperintensities throughout the white matter suggest chronic microvascular ischemic disease. Remote infarct with glios is involves the right frontal lobe. Mild nonspecific increased T2/FLAIR signal is noted within the mi dbrain and dorsal bharath. Arterial flow voids at the level the skull base appear patent. Heterogeneity with calcifications with in the posterior aspect of the superior sagittal sinus redemonstrated which may reflect chronic throm bus. No acute interval venous thrombosis identified. Prior bilateral lens replacement. Skull and soft tissues are unremarkable. Motion degraded exam. IMPRESSION: 1. No acute intracranial abnormality, specifically there is no acute or subacute infarct. 2. Age-related involutional changes with moderate chronic microvascular ischemic disease. 3. Remote infarct of the right frontal lobe with encephalomalacia and gliosis. ACT 112: Negative or not required by law. The above report was generated using voice recognition software. It may contain grammatical, syntax o r spelling errors. Electronically signed by: Noble Stafford M.D. 02/24/2020 1:41 PM
--- NOTE | 2020-02-24 18:12 | Consultation Report ---
DATE OF CONSULTATION: 02/24/2020 NEUROLOGY CONSULTATION NOTE CHIEF COMPLAINT: Right arm weakness. HISTORY OF PRESENT ILLNESS: An 84-year-old male with a history of coronary artery disease, carotid artery disease, and previous stroke, admitted from the hospital yesterday due to acute stroke. He was eating lunch yesterday with his daughter when he began having difficulty holding the fork with his right hand. He also knocked over a glass of water and was unaware that he did it. He had no headache or slurred speech. He had no aphasia or facial droop. There was no other focal neurological symptoms. The patient was brought to the Emergency Department by his daughter, he arrived 30 minutes after the onset of symptoms. Symptoms had persisted in the Emergency Department with right upper extremity weakness. A stroke alert was called. A CT head noncontrast was performed, which showed an old infarct in the right frontal lobe. No acute ischemic stroke or hemorrhage. CTA of the head and neck was also performed, which showed severe bilateral internal carotid artery stenosis. A telestroke consultation was performed with [facility]. The patient was on aspirin for known coronary artery disease. TPA was not recommended in light of improving symptoms. The patient was started on Plavix. By the time of admission, the patient's symptoms had resolved. Neurology was consulted for further evaluation. ALLERGIES: No known drug allergies. HOME MEDICATIONS: Aspirin 81 mg daily, Lipitor 80 mg daily, Toprol-XL 12.5 mg daily, omeprazole 20 mg daily, lisinopril 5 mg daily, multivitamin. PAST MEDICAL HISTORY: Carotid artery disease, coronary artery disease, dyslipidemia, cholecystitis, hypertension, low-grade B cell lymphoma, thoracic aortic aneurysm. PAST SURGICAL HISTORY: Cholecystectomy in 06/2018, status post coronary artery stent placement. FAMILY HISTORY: Mother had heart disease. Father had a myocardial infarction. Sister had gastrointestinal malignancy. There is also a family history of diabetes and hypertension. SOCIAL HISTORY: He is a former smoker. He quit smoking in 1978. He denies any alcohol. He lives at home. He is retired. He feels safe at home. REVIEW OF SYSTEMS: Negative for fever or weight loss. No diplopia or worsening vision. No nasal congestion or sinus issues. No cough or dyspnea. No chest pain, no palpitations, no edema. No nausea, vomiting, constipation, diarrhea or hematochezia. He did note joint pain, although denied myalgias. No rash, no skin ulcers. Complained of right upper extremity weakness. No polydipsia or polyuria. No easy bleeding, no bruising. No lymphadenopathy. PHYSICAL EXAMINATION: VITAL SIGNS: Blood pressure 167/98, pulse is 67, respiratory rate is 20, temperature is 36.4 degrees Celsius. CONSTITUTIONAL: The patient appears stated age. He appears in no distress. HEENT: His face is normocephalic and atraumatic. His eyes are not injected. His eyelids are normal. NECK: Supple. LUNGS: Normal respiratory effort. CARDIOVASCULAR: Normal cardiac pulses. ABDOMEN: Nondistended. SKIN: No skin rash. PSYCHIATRIC: Normal mood and normal affect. NEUROLOGIC: He is awake, alert and oriented to person, place and time. His attention is normal. Knowledge is appropriate. Comprehension is intact. Speech is clear. His pupils are symmetric. His extraocular muscles are intact. Facial sensation is intact. No facial asymmetry. Intact hearing. Palate symmetric. Good shoulder shrug. Tongue is midline. Gait evaluation deferred. No tremor or myoclonic jerks. No ataxia with [id number] testing. Intact to light touch in terms of sensation. Muscle tone is normal. Muscle exam 5/5 throughout. Reflexes show no ankle clonus. Negative Rocha sign. DIAGNOSTIC TESTING AND LABORATORY VALUES: WBC 7.94, hemoglobin 13.3, hematocrit 38.3, platelet count 227. INR is 1.0. Sodium is 138, potassium 4.0, chloride is 108, carbon dioxide 28, BUN is 15, creatinine 1.27, glucose is 94. Hemoglobin A1c is 5.2, calcium is 9.3, magnesium is 2.2. AST and ALT are normal. Troponin is negative. LDL cholesterol is 69, HDL cholesterol is 49. MRI of the brain without contrast performed on 02/24/2020: No acute intracranial abnormality, specifically no evidence of acute or subacute ischemic stroke. Age-related involutional changes with moderate chronic microvascular ischemic disease. Remote infarct of the right frontal lobe with encephalomalacia and gliosis. Head and neck CTA: Severe mixed plaque of the bilateral carotid bulbs and proximal internal carotid arteries resulting in less than 50% stenosis bilaterally. High-grade stenosis at the origin of the right external carotid artery. 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 No definitive acute thrombus identified on today's study. Remote infarct of the right frontal lobe. ASSESSMENT AND PLAN: Mr. Brunner is an 84-year-old male with history of coronary artery disease and carotid artery disease, on aspirin 81 mg daily, admitted with a transient right upper extremity weakness. Symptoms have resolved. MRI of the brain without contrast was reviewed and I am happy to report there is no evidence of acute ischemic stroke. Differential diagnosis certainly includes a transient ischemic attack. Agree with starting dual antiplatelet therapy. Would recommend continuing dual antiplatelet therapy for 21 days and then switching to Plavix 75 mg daily indefinitely. Recommend outpatient vascular surgery consult regarding the right ICA stenosis at the origin. Otherwise, continue home high-intensity statin. Blood pressure goal is systolic blood pressure less than 140, diastolic blood pressure less than 90. The patient can follow up with neurology as an outpatient in 8 weeks. ANGELA
[2020-02-24] MEDS: ENOXAPARIN INJ 40 MG/0.4 ML SYR SQ SCH (20:51)
--- NOTE | 2020-02-24 22:00 | Hospitalist Progress Note ---
Date of Service February 24, 2020 Assessment & Plan (1) Stroke-like symptoms: Presented to ED with RUE weakness / clumsiness. Symptoms lasted for about 30-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 CTA neck shows significant plaque bilat ICA's without high-grade stenoses. Telestroke consult obtained with [facility]. Already on aspirin for CAD. TPA not recommended in light of improving symptoms. Antiplatelet therapy with clopidogrel recommended. Passed dysphagia screen in ED. Further evaluation and management per stroke protocol. Cardiac monitoring- sinus arrhythmia, 1 short run of PAT. Echo did not show any intracardiac thrombi. LDL-c = 69. On high-intensity statin. PT / OT / MANAGER evals. Experiencing some residual fine motor problems with right hand- check MRI. Neuro consulted. (2) Carotid artery disease: CTA neck shows significant plaque bilat ICA's without high-grade stenoses. Antiplatelet therapy and lipid management. Follow. (3) Coronary artery disease: Remote history of [place] with coronary stent placement. Continue antiplatelet therapy, metoprolol, lisinopril, statin. (4) Hypertension: Hemodynamically stable. Continue metoprolol and lisinopril. (5) Dyslipidemia: LDL-c = 69. Continue high-intensity statin therapy with atorvastatin 80 mg daily. (6) Do not resuscitate status: Per advance directives. (7) DVT prophylaxis: SQ enoxaparin. Ambulate. (8) Discharge planning issues: Discharge disposition to be determined. Family Medicine follow-up with Dr. Ramirez. Admission and Anticipated Discharge Date Admission Date: February 23, 2020 Subjective Recheck for stroke-like symptoms. Patient seen in their room around 0940. Doing well. Having a little difficulty with fine motor skills right hand, but RUE weakness resolved. No headache. No new focal symptoms. Review of Systems: Constitutional- no fever. Cardiac- no chest pain. Pulmonary- no cough or SOB. GI- no nausea, vomiting, diarrhea, melena, hematochezia. - no urinary symptoms. Otherwise, as noted above. Physical Exam Constitutional: no acute distress Eyes: + anicteric sclerae Respiratory: normal respiratory effort, lungs clear to auscultation Cardiovascular: Rate/Rhythm: regular rate and regular rhythm Vessels: no JVD Extremities: no calf tenderness and no edema Gastrointestinal (Abdomen): normal bowel sounds, soft, nontender, no hepatosplenomegaly Musculoskeletal: Extremities: no cyanosis Skin: no rashes, warm and dry Neurologic: no facial palsy motor upper and lower extremities 5/5 bilat Psychiatric: Orientation: alert and oriented x 3 Results & Data Results & Data ([facility]) Vital Signs (Past 12 Hours) Vital Signs Temp Pulse Pulse Resp BP BP Pulse Ox 02/24/20 18:49 36.7 C 56 L 18 159/82 H 96 02/24/20 18:15 54 L 02/24/20 15:03 37.0 C 71 20 147/76 H 97 02/24/20 11:44 36.4 C L 67 20 167/98 H 98 Laboratory Results Laboratory Results - last 24 hr 02/24/20 02/24/20 02/24/20 07:55 07:55 07:55 WBC 7.94 RBC 4.30 L Hgb 13.3 L Hct 38.3 L MCV 89.1 MCH 30.9 MCHC 34.7 RDW Std Deviation 40.8 RDW Coeff of Roderick 12.6 Plt Count 227 MPV 10.4 Immature Gran % (Auto) 0.0 Neut % (Auto) 78.0 Lymph % (Auto) 9.2 [place] % (Auto) 10.5 Eos % (Auto) 2.0 Baso % (Auto) 0.3 Neut # (Auto) 6.20 Lymph # (Auto) 0.73 L [place] # (Auto) 0.83 H Eos # (Auto) 0.16 Baso # (Auto) 0.02 Immature Gran # (Auto) 0.00 Sodium 138 Potassium 4.0 Chloride 108 H Carbon Dioxide 28 Anion Gap 2.0 L BUN 15 Creatinine 1.27 Est Cr Clr Drug Dosing 42.6 Est GFR ( Amer) 60.2 Est GFR (Non-Af Amer) 51.9 BUN/Creatinine Ratio 11.6 Glucose 94 Estimat Average Glucose 103 Hemoglobin A1c 5.2 Calcium 9.3 Triglycerides 145 Cholesterol 147 LDL Cholesterol, Calc 69 VLDL Cholesterol, Calc 29 HDL Cholesterol 49 Cholesterol/HDL Ratio 3
[2020-02-25 08:08] LABS: Basophils # (auto) 0.03 K/uL (0-0.2); Basophils % (auto) 0.4 %; Eosinophils # (auto) 0.19 K/uL (0-0.5); Eosinophils % (auto) 2.7 %; Hematocrit (blood only) 38.3 % (42-52); Hemoglobin 13.3 g/dL (14.0-18.0); Immature Granulocytes # (auto) 0.01 K/uL (0.00-0.02); Immature Granulocytes % (auto) 0.1 %; Lymphocytes # (auto) 0.88 K/uL (1.2-3.4); Lymphocytes % (auto) 12.6 %; Mean Corpuscular Hgb Conc 34.7 g/dL (32-36); Mean Corpuscular Volume 89.3 fL (80-100); Mean Platelet Volume 10.9 fL (7.4-10.4); Monocytes # (auto) 0.78 K/uL (0.11-0.59); Monocytes % (auto) 11.2 %; Neutrophils # (auto) 5.09 K/uL (1.4-6.5); Platelet Count 231 K/uL (130-400); RDW Coefficient of Variation 12.7 % (11.5-14.5); RDW Standard Deviation 40.8 fL (36.4-46.3); Red Blood Count 4.29 M/uL (4.7-6.1); White Blood Count 6.98 K/uL (4.8-10.8)
[2020-02-25 08:37] LABS: BUN Creatinine Ratio 13.1 (10-20); Calcium 9.7 mg/dl (8.5-10.1); Creatinine Clr Calc Pharmacy 41.3 ml/min; Est GFR (African American) 57.9; Potassium 3.9 mmol/L (3.5-5.1)
[2020-02-25] MEDS: PANTOprazole 40 MG TAB PO SCH (08:43)
[2020-02-25] MEDS: ATORVASTATIN 40 MG TAB PO SCH (08:43)
[2020-02-25] MEDS: METOPROLOL SUCC 25MG EXT REL TAB PO SCH (08:43)
[2020-02-25] MEDS: lisinopril 5 MG TAB PO SCH (08:44)
[2020-02-25] MEDS: CLOPIDOGREL BISULFATE 75 MG TAB PO SCH (08:44)
[2020-02-25] MEDS: ASPIRIN 81 MG ECTAB PO SCH (08:44)
--- NOTE | 2020-02-25 13:35 | Hospitalist Progress Note ---
Date of Service February 25, 2020 Assessment & Plan (1) Stroke-like symptoms: Presented to ED with RUE weakness / clumsiness. Symptoms lasted for about 30-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 CTA neck shows significant plaque bilat ICA's without high-grade stenoses. Telestroke consult obtained with [facility]. Already on aspirin for CAD. TPA not recommended in light of improving symptoms. Antiplatelet therapy with clopidogrel recommended. Passed dysphagia screen in ED. Further evaluation and management per stroke protocol. Cardiac monitoring- sinus arrhythmia, 1 short run of PAT. Echo did not show any intracardiac thrombi. LDL-c = 69. On high-intensity statin. PT / OT / [employer] evals obtained. PT concerned about unsteady gait, but patient and his daughter indicate that gait issues are chronic. He uses cane and walker at home. Neuro consulted and recommended dual antiplatelet therapy with ASA + clopidogrel x 3 weeks, then monotherapy with clopidogrel. (2) Carotid artery disease: CTA neck shows significant plaque bilat ICA's without high-grade stenoses. Antiplatelet therapy and lipid management as discussed. Outpatient referral to Vascular Surgery recommended. Follow. (3) Coronary artery disease: Remote history of [place] with coronary stent placement. Continue antiplatelet therapy, metoprolol, lisinopril, statin. (4) Hypertension: BP's elevated. Increase lisinopril to 10 mg daily. Continue metoprolol. (5) Dyslipidemia: LDL-c = 69. Continue high-intensity statin therapy with atorvastatin 80 mg daily. (6) GERD (gastroesophageal reflux disease): Change PPI from omeprazole to pantoprazole in light of antiplatelet therapy with clopidogrel. (7) Do not resuscitate status: Per advance directives. (8) DVT prophylaxis: SQ enoxaparin. Ambulating. (9) Discharge planning issues: Discharge to home. Family Medicine follow-up with Dr. Ramirez. Admission and Anticipated Discharge Date Admission Date: February 23, 2020 Subjective Recheck for stroke-like symptoms. Patient seen in their room this afternoon. No new neuro symptoms. No headache. Patient and his daughter confirm that unsteady gait is chronic. He uses a cane and walker at home. No fever, cough, SOB. Physical Exam Constitutional: no acute distress Eyes: + anicteric sclerae Respiratory: normal respiratory effort, lungs clear to auscultation Cardiovascular: Rate/Rhythm: regular rate and regular rhythm Vessels: no JVD Extremities: no calf tenderness and no edema Gastrointestinal (Abdomen): normal bowel sounds, soft, nontender, no hepatosplenomegaly Musculoskeletal: Extremities: no cyanosis Skin: no rashes, warm and dry Neurologic: motor strength 5/5 bilat Psychiatric: Orientation: alert and oriented x 3 Results & Data Results & Data ([facility]) Vital Signs (Past 12 Hours) Vital Signs Temp Pulse Pulse Resp BP BP Pulse Ox 02/25/20 13:26 36.5 C 63 18 157/72 H 166/97 H 98 02/25/20 07:46 36.5 C 63 18 166/97 H 98 02/25/20 07:00 56 L 02/25/20 05:29 36.7 C 63 18 157/72 H 96 02/25/20 03:30 36.5 C 56 L 18 180/82 H 95
[2020-02-25] MEDS ORDERED: STROKE PATIENT DISCHARGE STA (13:55)
--- NOTE | 2020-02-25 14:23 | Pharmacy Report ---
Pharmacist Stroke Counseling - Date of Service February 25, 2020 - Scope: Pharmacy has been consulted to provide medication discharge counseling for this patient admitted with [ischemic stroke] [hemorrhagic stroke] [transient ischemic attack] as per the Pharmacist Discharge Counseling for Stroke Patients [employer] [facility]. - Medications on Discharge: Home Medications Medication Instructions Recorded Confirmed aspirin 81 mg PO DAILY 06/09/18 02/23/20 atorvastatin 80 mg PO QAM 06/09/18 02/23/20 metoprolol succinate [Toprol XL] 12.5 mg PO DAILY 06/09/18 02/23/20 nitroglycerin [Nitrostat] 0.4 mg SUBLINGUAL DIRECTED PRN 06/09/18 02/23/20 omeprazole 20 mg PO DAILY 06/09/18 02/23/20 lisinopril 5 mg PO DAILY 02/23/20 02/23/20 multivitamin 1 tab PO DAILY 02/23/20 02/23/20 New Rx's Medication Instructions Recorded clopidogrel 75 mg PO DAILY #30 tab 02/25/20 lisinopril 10 mg PO DAILY #30 tab 02/25/20 pantoprazole 40 mg PO DAILY #30 tab 02/25/20 - Action: The above medications, specifically ones for stroke treatment/prophylaxis, have been reviewed in detail with the patient and/or patient fundraising sale representative(s) prior to discharge. This includes indication, common adverse reactions, drug interactions, and medication administration. Medication counseling has been employed using the teach-back method to ensure understanding. - Outcome: The patient and/or patient fundraising sale representative(s) have demonstrated understanding of the medications. Additional comments: Discussed new medications clopidogrel and pantoprazole (stop omeprazole) and change in his blood pressure medication (increased dose). Patient did verbalize that he understood and stated they use the [facility]. Let him know the prescription had been transmitted there. Patient did seem a little confused at times and stated that his was coming to pick him up (per the social history patient is a ) but stated he understood medication changes/side effects and denied any questions several times. Did alert the nurse to this confusion via telephone- asked her to call us if the daughter has any questions when she comes to pick him up. Thank you for allowing pharmacy to be involved in the care of this patient. Please call [phone] with any additional questions
--- NOTE | 2020-02-26 08:57 | Discharge Summary ---
Date of Service Date of Admission: 02/23/20 Date of Discharge: 02/25/20 Admission HPI Per Admitting Provider 84 YO male followed by Dr. Ramirez. History of coronary artery disease, carotid artery disease, cerebrovascular disease (noted in clinic EMR, but pt does not recall history), dyslipidemia, and other problems noted below. Lives at home and stays active. He was eating lunch with his daughter today and began having difficulty holding his fork with his right hand. Knocked over a glass of water but was unaware that he did. No headache. No dysarthria, aphasia, facial palsy. No other focal neurologic symptoms. Daughter brought him to ED and he arrived about 30 min after onset of symptoms. Persistent RUE weakness upon arrival to ED. Stroke alert called. CT head showed old infarct right frontal lobe, no acute ischemic or hemorrhagic events. CTA cervical vessels showed severe bilateral ICA plaque with < 50% stenosis; high grade stenosis at origin of right external carotid noted. CTA intracranial vessels showed plaque without significant stenosis. Telestroke consult obtained with [facility]. Already on aspirin for CAD. TPA not recommended in light of improving symptoms. Antiplatelet therapy with clopidogrel recommended. At the time of my assessment, patient felt well and his RUE weakness had resolved. Principal Diagnosis RUE weakness- probable TIA Discharge Data Allergies Allergy/AdvReac Type Severity Reaction Status Date / Time No Known Allergies Allergy Unknown Verified 02/23/20 16:24 Consultations 02/23/20 15:09 ED Decision to Admit Stat 02/23/20 17:20 Consult Case Management - Discharge Planning Routine Consult Neurology Routine Ordered Studies 02/23/20 13:53 CT angio head w con Stat CT angio neck with con Stat CT head/brain wo con Stat 02/24/20 09:43 MR brain wo con Routine Hospital Course (1) Stroke-like symptoms: Presented to ED with RUE weakness / clumsiness. Symptoms lasted for about 30-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 CTA neck shows significant plaque bilat ICA's without high-grade stenoses. Telestroke consult obtained with [facility]. Already on aspirin for CAD. TPA not recommended in light of improving symptoms. Antiplatelet therapy with clopidogrel recommended. Passed dysphagia screen in ED. Further evaluation and management per stroke protocol. Cardiac monitoring- sinus arrhythmia, 1 short run of PAT. Echo did not show any intracardiac thrombi. LDL-c = 69. On high-intensity statin. 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 PT concerned about unsteady gait, but patient and his daughter indicate that gait issues are chronic. He uses cane and walker at home. Neuro consulted and recommended dual antiplatelet therapy with ASA + clopidogrel x 3 weeks, then monotherapy with clopidogrel. (2) Carotid artery disease: CTA neck shows significant plaque bilat ICA's without high-grade stenoses. Antiplatelet therapy and lipid management as discussed. Outpatient referral to Vascular Surgery recommended. Follow. (3) Coronary artery disease: Remote history of [place] with coronary stent placement. Continue antiplatelet therapy, metoprolol, lisinopril, statin. (4) Hypertension: BP's elevated. Increase lisinopril to 10 mg daily. Continue metoprolol. (5) Dyslipidemia: LDL-c = 69. Continue high-intensity statin therapy with atorvastatin 80 mg daily. (6) GERD (gastroesophageal reflux disease): Change PPI from omeprazole to pantoprazole in light of antiplatelet therapy with clopidogrel. (7) Do not resuscitate status: Per advance directives. (8) DVT prophylaxis: SQ enoxaparin. Ambulating. (9) Discharge planning issues: Discharge to home. Family Medicine follow-up with Dr. Ramirez. Total Time Total Time Spent Total Time Spent (In Minutes): 30 Discharge Plan Discharge Items Patient Disposition: Home - Home Health Services Reason For Visit: weakness of right arm and hand Discharge Diagnosis: probable TIA (ministroke) Condition on Discharge: Good Activity: As commented below Activity Comment: Please be very careful not to fall. Use cane or walker. Non-emergency contact: Primary Care Provider and Hospitalist Call non-emergency contact if: you have any medication questions and your symptoms worsen Follow-up/Referrals: Joaquin Ramirez DO [Primary Care Provider] - (02/28/2020 12:00 PM [address]aquin Ramirez DO [facility] ) Diet: Heart Healthy Add Attending Provider Instructions: MEDICATION CHANGES: NEW MEDICATION: clopidogrel (Plavix) 75 mg daily blood thinner to help prevent strokes Continue to take aspirin for 3 more weeks, then stop it. You should take aspirin and clopidogrel (Plavix) together for 3 weeks, then stop aspirin and continue clopidogrel (Plavix). MEDICATION ADJUSTMENT: Increase lisinopril to 10 mg daily for better control of blood pressure. MEDICATION CHANGE: omeprazole (Prilosec) can interact with clopidogrel (Plavix) STOP omeprazole (Prilosec) and START pantoprazole (Protonix) 40 mg daily. SUMMARY OF TEST RESULTS: CT scan and and MRI scan showed old stroke, but no new strokes. (Sometimes a ministroke is too small to be seen.) CT angiogram showed plaque in the carotid arteries in the neck. LDL cholesterol was 69 Good results! Continue atorvastatin (Lipitor). RECOMMENDATIONS FOR FOLLOW-UP: Please ask Dr. Ramirez to make a referral to Vascular Surgery regarding hardening of the carotid arteries. OTHER INSTRUCTIONS: Seek medical attention if you have: * temperature above 101 * chest pain or trouble breathing * abdominal pain, nausea, vomiting * diarrhea, dark stools or bloody stools * any unanswered questions or concerns Call [phone] if symptoms are severe. Please take good care of yourself. Call if you have any questions or problems. You can reach a [facility] hospitalist on duty at [facility] 24 hours a day by calling [phone]. My cell # is [phone]. Pending Studies at Discharge: No Stand-Alone Forms: Medications to Prevent Stroke, [facility], Smoking Cessation Medications and DC Order Prescriptions: New clopidogrel 75 mg tablet 75 mg PO DAILY Qty: 30 RF: 5 lisinopril 10 mg tablet 10 mg PO DAILY Qty: 30 RF: 5 pantoprazole 40 mg tablet,delayed release (DR/EC) 40 mg PO DAILY Qty: 30 RF: 5 Continued aspirin 81 mg Tablet,Chewable 81 mg PO DAILY RF: 0 atorvastatin 80 mg Tablet 80 mg PO QAM RF: 0 metoprolol succinate [Toprol XL] 25 mg Tablet Extended Release 24 Hr 12.5 mg PO DAILY RF: 0 nitroglycerin [Nitrostat] 0.4 mg Tablet, Sublingual 0.4 mg Sublingual DIRECTED PRN (Reason: Chest Pain) RF: 0 multivitamin Tablet 1 tab PO DAILY RF: 0 Discontinued omeprazole 20 mg Capsule,Delayed Release(Dr/Ec) 20 mg PO DAILY RF: 0 lisinopril 5 mg tablet 5 mg PO DAILY RF: 0 Discharge Orders: Discharge Order (Routine); Ordered 02/25/20 Ordered By: Oscar Carey Admission Data Admit Date/Time: 02/23/20 15:19 Attending Provider: Oscar Carey Admit Provider: Oscar Carey Primary Care Provider: Joaquin Ramirez Other Providers: Oscar Carey ; Graham Whalen ; [place] Other Interventions: Discharge Summary Assessment (RN) Last Done: 02/25/20 14:20
== END 2020-02-25 15:10 | disposition home health service (06) ==
LOC: ED 13:23 → 2W 13:23

== ENCOUNTER 2020-08-24 20:00 | Inpatient (IN) ==
--- NOTE | 2020-08-24 21:57 | Emergency Department Note ---
Impression & Plan Weakness, Muscular aches, Pneumonia, Tachypnea, COVID-19 ED Provider Note NAME: CRYSTAL BRUNNER AGE: 84 SEX: M : 1935 ARRIVES VIA: Walk-In INFORMANT: [Patient][family] ED PROVIDER(S): [Armen Thomas MD] CHIEF COMPLAINT: Weakness HISTORY OF PRESENT ILLNESS: The patient is an 84-year-old male who presents to the ER with 3 days of fatigue and weakness and also a dry cough. He has just been sitting around and he has complained to his family that his legs are achy and crampy. There has been no fall. No fever, no nausea or vomiting, no diarrhea. The patient denies any chest pain. He denies any shortness of breath. The patient has not had Covid exposures but he is not vaccinated. His family is concerned that he could be dehydrated as they feel he is not drinking enough fluid. REVIEW OF SYSTEMS: See HPI for pertinent positives and negatives. A total of ten systems were reviewed and were otherwise negative. PMHx/PSHx: See Below SOCIAL HISTORY: See Below. PHYSICAL EXAM: GENERAL: Patient is in no acute distress. HEENT: No acute trauma, normocephalic atraumatic, mucous membranes moist, no nasal congestion, no scleral icterus. NECK: No stridor, no adenopathy, no meningismus, trachea is midline. LUNGS: Clear to auscultation bilaterally, no wheeze, no rhonchi, breath sounds equal. HEART: 2/6 systolic murmur, an occasional extra beat was heard, normal rate. ABDOMEN: Soft, nontender, bowel sounds positive, no hernias, no peritonitis. EXTREMITIES: No cyanosis or edema, full range of motion of all the joints without pain or difficulty, no signs for acute trauma. NEUROLOGIC: Oriented x 3, no acute motor or sensory deficits, no focal weakness. SKIN: No rash, no jaundice, no diaphoresis. DIFFERENTIAL DIAGNOSIS: Infection, dehydration, metabolic abnormality, hypo/hyperglycemia, COVID-19, electrolyte disturbance, anemia, hypoxia, cardiac sources, intracerebral event, toxicologic issues, stroke, TIA, as well as other pathologies. EMERGENCY DEPARTMENT COURSE/PROCEDURES: ECG: Indication was weakness. The ECG shows a sinus rhythm with a rate of 65. There is a first-degree AV block. There are some PACs. There is LVH present. The QTc is 432. There is no ST elevation. Continuous Cardiac Monitoring: An order was placed for continuous cardiac m onitoring. The monitor shows a rate of 70 with sinus rhythm with a first-degree AV block. MEDICAL DECISION MAKING: There is no leukocytosis. The patient does have a mild anemia. The anemia appears baseline though looking back at previous testing. There is a normal platelet count. No significant electrolyte abnormality or kidney failure. No worrisome liver enzyme elevation. The patient appears to be in a euthyroid state. ECG shows a sinus rhythm, no acute ischemia. Cardiac enzyme testing x1 is not consistent with acute cardiac injury. Urinalysis does not show inf ection. Chest x-ray shows bilateral infiltrates consistent with a viral pneumonia. Covid testing returned positive. On exam, the patient appeared weak. He was tachypneic. His lungs did sound clear. Patient was given 1 L of IV saline, he has been resting comfortably. The patient has been tachypneic during his stay. He presents with weakness, muscle aches and a dry cough. He does have Covid pneumonia by my work-up. I do not think the patient is in any condition to go home. He has been in bed for 3 days. He is weak. He is tachypneic and I do think will be best served with a stay in the hospital stay. I talked to the patient and his family. I did speak with case management, the on-call hospitalist was consulted. I do think the Covid infection has caused his symptom complex. Past Med/Surg History Medical History Carotid artery disease Cerebrovascular disease TIA RUE weakness 02/23/20 Coronary artery disease Do not resuscitate status Per pt's advance directives. 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 Brunner Status post coronary artery stent placement Family History (Updated 02/23/20 @ 16:54 by Oscar Carey MD) Mother Heart disease Father Myocardial infarction Sister Cancer ? 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: No Beliefs That Will Affect Care: None marital status: / Current Living Situation: Alone current occupational status: retired How many Children do You have: 2 Feels Safe at Home: Yes Assistive Devices: Glasses and Walker Allergies Allergies Allergy/AdvReac Type Severity Reaction Status Date / Time No Known Allergies Allergy Unknown Verified 08/24/20 22:03 Home Meds Home Medications Medication Instructions Recorded Confirmed atorvastatin 80 mg PO QAM 06/09/18 08/24/20 metoprolol succinate [Toprol XL] 12.5 mg PO DAILY 06/09/18 08/24/20 nitroglycerin [Nitrostat] 0.4 mg SUBLINGUAL DIRECTED PRN 06/09/18 08/24/20 multivitamin 1 tab PO DAILY 02/23/20 08/24/20 Previous Rx's Medication Instructions Recorded clopidogrel 75 mg PO DAILY #30 tab 02/25/20 lisinopril 10 mg PO DAILY #30 tab 02/25/20 pantoprazole 40 mg PO DAILY #30 tab 02/25/20 Results & Data (ED) Vital Signs Vital Signs - 24 hr 08/24/20 20:03 08/24/20 20:15 08/24/20 21:41 Temperature 37.1 C Temperature Source Temporal Artery Scan Pulse Rate 70 60 Pulse Rate from SpO2 Sensor 58 L Respiratory Rate 20 22 Respiratory Effort / Characteristics Non-Labored Spontaneous Respiratory Depth Normal Respiratory Pattern Regular Blood Pressure 144/74 H 152/80 H Blood Pressure Mean 97 104 Pulse Oximetry 95 98 95 Oxygen Delivery Method Room Air Room Air Room Air Sepsis Recent Fever Within 48 Hours No Sepsis New/Unexplained Change in Mental Status No Sepsis Action Taken by Nursing No Action Required 08/24/20 22:12 08/24/20 22:31 08/24/20 22:40 Temperature Temperature Source Pulse Rate 59 L 60 64 Pulse Rate from SpO2 Sensor 55 L 58 L 57 L Respiratory Rate 33 H 26 H 36 H Respiratory Effort / Characteristics Respiratory Depth Respiratory Pattern Blood Pressure 157/87 H 153/92 H Blood Pressure Mean 110 112 Pulse Oximetry 97 95 96 Oxygen Delivery Method Room Air Room Air Room Air Sepsis Recent Fever Within 48 Hours Sepsis New/Unexplained Change in Mental Status Sepsis Action Taken by Retirement Medications Current Medication List: was personally reviewed by me Laboratory Data Attestation: I reviewed the patient's lab results. Result diagrams: 08/24/20 21:50 08/24/20 21:50 Lab Results 08/24/20 08/24/20 08/24/20 Range/Units 21:50 21:50 21:55 WBC 4.33 L (4.8-10.8) K/uL RBC 3.80 L (4.7-6.1) M/uL Hgb 11.8 L (14.0-18.0) g/dL Hct 33.9 L (42-52) % MCV 89.2 (80-100) fL MCH 31.1 (25-34) pg MCHC 34.8 (32-36) g/dL RDW Std Deviation 43.9 (36.4-46.3) fL RDW Coeff of Roderick 13.3 (11.5-14.5) % Plt Count 165 (130-400) K/uL MPV 10.5 H (7.4-10.4) fL Immature Gran % (Auto) 0.0 % Neut % (Auto) 76.0 % Lymph % (Auto) 11.3 % Craig % (Auto) 12.5 % Eos % (Auto) 0.0 % Baso % (Auto) 0.2 % Neut # (Auto) 3.29 (1.4-6.5) K/uL Lymph # (Auto) 0.49 L (1.2-3.4) K/uL Craig # (Auto) 0.54 (0.11-0.59) K/uL Eos # (Auto) 0.00 (0-0.5) K/uL Baso # (Auto) 0.01 (0-0.2) K/uL Immature Gran # (Auto) 0.00 (0.00-0.02) K/uL Sodium 135 L (136-145) mmol/L Potassium 3.8 (3.5-5.1) mmol/L Chloride 103 (98-107) mmol/L Carbon Dioxide 24 (21-32) mmol/L Anion Gap 8.0 (3-11) BUN 17 (7-18) mg/dl Creatinine 1.20 (0.6-1.4) mg/dl Est Cr Clr Drug Dosing 45.1 ml/min Est GFR ( Amer) 64.4 ml/min Est GFR (Non-Af Amer) 55.6 ml/min BUN/Creatinine Ratio 14.2 (10-20) Glucose 107 H (70-99) mg/dl Calcium 9.1 (8.5-10.1) mg/dl Magnesium 2.2 (1.8-2.4) mg/dl Total Bilirubin 0.8 (0.2-1) mg/dl AST 27 (15-37) U/L ALT 21 (12-78) U/L Alkaline Phosphatase 72 (45-117) U/L Total Creatine Kinase 120 (39-308) U/L Troponin I < 0.015 (0-0.045) ng/ml Total Protein 7.3 (6.4-8.2) gm/dl Albumin 3.6 (3.4-5.0) gm/dl Globulin 3.7 (2.5-4.0) gm/dl Albumin/Globulin Ratio 1.0 (0.9-2) TSH 2.400 (0.300-4.500) uIu/ml Urine Color Urine Appearance (Clear) Urine pH (4.5-7.5) Ur Specific [place] (1.000-1.030) Urine Protein (Negative) Urine Glucose (UA) (Negative) Urine Ketones (Negative) Urine Blood (Negative) Urine Nitrite (Negative) Urine Bilirubin (Negative) Urine Urobilinogen (Negative) Ur Leukocyte Esterase (Negative) Urine RBC (0-4) /hpf Urine WBC (0-5) /hpf Ur Epithelial Cells (0-5) /lpf Urine Bacteria (Negative) Urine Mucus (None Prsent) COVID-19 Eval Order Covid19 at [facility] SARS-CoV-2 (PCR) (Negative) 08/24/20 08/24/20 Range/Units 21:55 23:20 WBC (4.8-10.8) K/uL RBC (4.7-6.1) M/uL Hgb (14.0-18.0) g/dL Hct (42-52) % MCV (80-100) fL MCH (25-34) pg MCHC (32-36) g/dL RDW Std Deviation (36.4-46.3) fL RDW Coeff of Roderick (11.5-14.5) % Plt Count (130-400) K/uL MPV (7.4-10.4) fL Immature Gran % (Auto) % Neut % (Auto) % Lymph % (Auto) % Craig % (Auto) % Eos % (Auto) % Baso % (Auto) % Neut # (Auto) (1.4-6.5) K/uL Lymph # (Auto) (1.2-3.4) K/uL Craig # (Auto) (0.11-0.59) K/uL Eos # (Auto) (0-0.5) K/uL Baso # (Auto) (0-0.2) K/uL Immature Gran # (Auto) (0.00-0.02) K/uL Sodium (136-145) mmol/L Potassium (3.5-5.1) mmol/L Chloride (98-107) mmol/L Carbon Dioxide (21-32) mmol/L Anion Gap (3-11) BUN (7-18) mg/dl Creatinine (0.6-1.4) mg/dl Est Cr Clr Drug Dosing ml/min Est GFR ( Amer) ml/min Est GFR (Non-Af Amer) ml/min BUN/Creatinine Ratio (10-20) Glucose (70-99) mg/dl Calcium (8.5-10.1) mg/dl Magnesium (1.8-2.4) mg/dl Total Bilirubin (0.2-1) mg/dl AST (15-37) U/L ALT (12-78) U/L Alkaline Phosphatase (45-117) U/L Total Creatine Kinase (39-308) U/L Troponin I (0-0.045) ng/ml Total Protein (6.4-8.2) gm/dl Albumin (3.4-5.0) gm/dl Globulin (2.5-4.0) gm/dl Albumin/Globulin Ratio (0.9-2) TSH (0.300-4.500) uIu/ml Urine Color Yellow Urine Appearance Clear (Clear) Urine pH 5.0 (4.5-7.5) Ur Specific [place] 1.025 (1.000-1.030) Urine Protein 1+ H (Negative) Urine Glucose (UA) Negative (Negative) Urine Ketones Negative (Negative) Urine Blood Negative (Negative) Urine Nitrite Negative (Negative) Urine Bilirubin Negative (Negative) Urine Urobilinogen Negative (Negative) Ur Leukocyte Esterase Negative (Negative) Urine RBC 0-4 (0-4) /hpf Urine WBC 0-5 (0-5) /hpf Ur Epithelial Cells 5-10 H (0-5) /lpf Urine Bacteria Negative (Negative) Urine Mucus Present A (None Prsent) COVID-19 Eval Order SARS-CoV-2 (PCR) POSITIVE A* (Negative) Administered Medications Discontinued Medications Sodium Chloride (Nss 1000ml) 1,000 mls @ 999 mls/hr IV .Q1H1M BHARATH Stop: 08/24/20 23:00 Last Infusion: 08/24/20 23:21 Dose: 0 mls/hr Documented by: [id number] Admin: 08/24/20 22:09 Dose: 999 mls/hr Documented by: [id number] Imaging Data Attestation: I personally reviewed and interpreted this imaging study as follows: My Impression: Chest x-ray: There are bilateral pulmonary infiltrates consistent with a viral pneumonia. No CHF or pneumothorax. Discharge Plan Visit Data Chief Complaint: Illness Stated Complaint: BOTH LEGS HURTING, NOT DRINKING ED Provider: Armen Thomas Discharge Problem: Weakness, Muscular aches, Pneumonia, Tachypnea, COVID-19 Patient Disposition: Admitted As Inpatient Condition: Fair Forms Stand Alone Forms: My [facility] [employer] Prescriptions Prescriptions: No Action atorvastatin 80 mg Tablet 80 mg PO QAM RF: 0 metoprolol succinate [Toprol XL] 25 mg Tablet Extended Release 24 Hr 12.5 mg PO DAILY RF: 0 nitroglycerin [Nitrostat] 0.4 mg Tablet, Sublingual 0.4 mg Sublingual DIRECTED PRN (Reason: Chest Pain) RF: 0 multivitamin Tablet 1 tab PO DAILY RF: 0 clopidogrel 75 mg tablet 75 mg PO DAILY Qty: 30 RF: 5 lisinopril 10 mg tablet 10 mg PO DAILY Qty: 30 RF: 5 pantoprazole 40 mg tablet,delayed release (DR/EC) 40 mg PO DAILY Qty: 30 RF: 5 Referrals Referrals: Joaquin Ramirez DO [Primary Care Provider] - Discharge Problem: Pneumonia Qualifiers: Pneumonia type: due to unspecified organism Laterality: bilateral Lung location: unspecified part of lung Qualified Code(s): J18.9 - Pneumonia, unspecified organism
[2020-08-24] MEDS ORDERED: SODIUM CHLORIDE 0.9% 1000ML 1,000 ML IV SCH (22:00)
[2020-08-24 22:21] LABS: Basophils # (auto) 0.01 K/uL (0-0.2); Basophils % (auto) 0.2 %; Hematocrit (blood only) 33.9 % (42-52); Hemoglobin 11.8 g/dL (14.0-18.0); Lymphocytes # (auto) 0.49 K/uL (1.2-3.4); Lymphocytes % (auto) 11.3 %; Mean Corpuscular Hemoglobin 31.1 pg (25-34); Mean Corpuscular Hgb Conc 34.8 g/dL (32-36); Mean Corpuscular Volume 89.2 fL (80-100); Mean Platelet Volume 10.5 fL (7.4-10.4); Monocytes # (auto) 0.54 K/uL (0.11-0.59); Monocytes % (auto) 12.5 %; Neutrophils # (auto) 3.29 K/uL (1.4-6.5); Platelet Count 165 K/uL (130-400); RDW Coefficient of Variation 13.3 % (11.5-14.5); RDW Standard Deviation 43.9 fL (36.4-46.3); White Blood Count 4.33 K/uL (4.8-10.8)
[2020-08-24 22:38] LABS: Alanine Aminotransferase 21 U/L (12-78); Albumin Level 3.6 gm/dl (3.4-5.0); Aspartate Aminotransferase 27 U/L (15-37); BUN Creatinine Ratio 14.2 (10-20); Blood Urea Nitrogen 17 mg/dl (7-18); Calcium 9.1 mg/dl (8.5-10.1); Carbon Dioxide 24 mmol/L (21-32); Chloride 103 mmol/L (98-107); Creatinine Clr Calc Pharmacy 45.1 ml/min; Est GFR (African American) 64.4 ml/min; Est GFR (Non-African American) 55.6 ml/min; Glucose 107 mg/dl (70-99); Magnesium 2.2 mg/dl (1.8-2.4); Potassium 3.8 mmol/L (3.5-5.1); Sodium 135 mmol/L (136-145)
[2020-08-24 22:48] LABS: Alkaline Phosphatase 72 U/L (45-117); Bilirubin,Total 0.8 mg/dl (0.2-1); Creatine Kinase 120 U/L (39-308); Globulin 3.7 gm/dl (2.5-4.0); Total Protein 7.3 gm/dl (6.4-8.2); Troponin I < 0.015 ng/ml (0-0.045)
[2020-08-24 23:30] LABS: Appearance Urine Clear (Clear); Bilirubin Urine Negative (Negative); Blood Urine Negative (Negative); Color Urine Yellow; Glucose Urine UA Negative (Negative); Ketones Urine Negative (Negative); Leukocyte Esterase Urine Negative (Negative); Nitrite Urine Negative (Negative); Protein Urine 1+ (Negative); Specific Gravity Urine 1.025 (1.000-1.030); Urobilinogen Urine Negative (Negative)
[2020-08-24 23:40] LABS: Bacteria Urine Negative (Negative); Mucus Urine Present (None Prsent); RBC Urine 0-4 /hpf (0-4); WBC Urine 0-5 /hpf (0-5)
[2020-08-25] MEDS ORDERED: SODIUM CHLORIDE 0.9% 1000ML 1,000 ML IV SCH (02:15)
[2020-08-25] MEDS ORDERED: ACETAMINOPHEN 325 MG TAB PO PRN (02:15)
[2020-08-25] MEDS ORDERED: POLYETHYLENE (MIRALAX) 17 GM PACK PO PRN (02:15)
[2020-08-25] MEDS ORDERED: NITROGLYCERIN SL 0.4 MG/TAB TAB SL PRN ×2 (02:15)
--- NOTE | 2020-08-25 03:23 | History and Physical Report ---
DATE OF ADMISSION: 08/25/2020 CHIEF COMPLAINT: Weakness. 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 The patient lives alone, was brought in by daughter because the patient is having weakness in the legs since a couple of days, though the patient denies any other complaints, but today he has some cough and his COVID test came back positive. He did not take any COVID shots. The patient is afebrile. Denies any chest pain, no shortness of breath. No nausea, no vomiting, no abdominal pain, no loss of sense of smell or taste. Appetite is okay. No headache, no blurred vision. Has some runny nose. No sore throat. Somewhat hard of hearing. Normal bowel and bladder movements. Currently resting comfortably and hemodynamically stable. Saturating fine on room air, but somewhat tachypneic. ALLERGIES: No known drug allergies. PAST MEDICAL HISTORY: As mentioned above. PAST SURGICAL HISTORY: Colonoscopy. MEDICATIONS: The patient is on atorvastatin 80 mg p.o. a.m., Plavix 75 mg p.o. a.m., lisinopril 10 mg p.o. a.m., Toprol-XL 12.5 mg p.o. daily, multivitamins 1 tablet p.o. daily, Nitrostat 0.4 mg sublingual p.r.n., Protonix 40 mg p.o. daily. FAMILY HISTORY: Significant for sister has GI cancer, father has MS, sister has brain abscess. SOCIAL HISTORY: . No smoking, no alcohol, no drug use. REVIEW OF SYSTEMS: As per HPI. Rest of the review of symptoms negative. PHYSICAL EXAMINATION: GENERAL: The patient is of moderate build, not in acute distress. VITAL SIGNS: Temperature 37.1, pulse 64, respiratory rate 36, blood pressure 153/92, oxygen 96% on room air. HEENT: Atraumatic Blind in left eye? Oral mucosa moist. NECK: No JVD. No neck masses. CARDIOVASCULAR: S1, S2 heard, regular rate and rhythm, no murmur, no gallop. RESPIRATORY SYSTEM: Normal AP diameter. No accessory muscle use. No wheezing, no crackles. ABDOMEN: Soft, bowel sounds present, nontender. No distention. CENTRAL NERVOUS SYSTEM: Cranial nerves II-XII grossly intact. Nonfocal. EXTREMITIES: No edema, no erythema. LABORATORY DATA: WBC 4, hemoglobin 11.8, hematocrit 33.9, platelets 165. Sodium 135, potassium 3.8, chloride 103, bicarbonate 24, BUN 17, creatinine 1.2, serum glucose 107, calcium 9.1, magnesium 2.2, total bilirubin 0.8, AST 27, ALT 21, alkaline phosphatase 72. Total creatinine kinase 120. Troponin I less than 0.015. TSH 2.4. Urinalysis negative. SARS-CoV-2 PCR positive. IMAGING DATA: Chest x-ray, bibasilar infiltrates seen. EKG: Sinus bradycardia with first-degree AV block with PVCs, at a rate of 55. Nonspecific ST abnormalities. ASSESSMENT AND PLAN: This is an 84-year-old male who presents with ongoing illness and found to be COVID positive. 1. Illness, COVID positive: Says symptoms from last two days. Possible COVID pneumonia on chest x-ray. The patient is saturating fine on room air, but he is somewhat tachypneic. Because of comorbid conditions, we are going to admit him to the hospital and monitor closely. Currently does not meet criteria for remdesivir or steroids. We will follow his D-dimer, troponin, ferritin, and LDH levels in the a.m. 2. History of coronary artery disease status post stent: Continue his Plavix, statin, and beta adonis. 3. History of hypertension: Continue on Toprol-XL and lisinopril. 4. 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 5. History of peripheral vascular disease: On Plavix and statin. 6. History of cerebrovascular accident: On Plavix and statin. 7. History of chronic kidney disease stage III: Creatinine 1.2. Will follow the labs. 8. Deep venous thrombosis prophylaxis: Lovenox. DISPOSITION: Closely monitor in the med [facility]. Level 1 full code. Expect to discharge home and follow with family doctor. ANGELA
--- NOTE | 2020-08-25 06:31 | XRay Report ---
XR chest 1V portable HISTORY: 84 years-old Male weakness acute weakness COMPARISON: Chest radiograph 02/23/2020 TECHNIQUE: Portable AP view the chest FINDINGS: Cardiac silhouette is upper limits of normal in size. Coronary arterial stent. Calcified plaque of th e thoracic aorta. No pneumothorax or large pleural effusion. Mixed reticular interstitial and patchy airspace opacities are noted within a mid and lower lung zone prominent distribution. Degenerative ch anges of the shoulders and spine. IMPRESSION: Mixed interstitial and alveolar opacities are suggestive of multifocal pneumonia. ACT 112: Negative or not required by law. The above report was generated using voice recognition software. It may contain grammatical, syntax o r spelling errors. Electronically signed by: Doe Stafford M.D. 08/25/2020 6:30 AM
[2020-08-25 08:38] LABS: Basophils # (auto) 0.01 K/uL (0-0.2); Basophils % (auto) 0.3 %; Hematocrit (blood only) 30.9 % (42-52); Hemoglobin 10.7 g/dL (14.0-18.0); Immature Granulocytes # (auto) 0.01 K/uL (0.00-0.02); Immature Granulocytes % (auto) 0.3 %; Lymphocytes % (auto) 11.4 %; Mean Corpuscular Hgb Conc 34.6 g/dL (32-36); Mean Corpuscular Volume 86.6 fL (80-100); Mean Platelet Volume 10.6 fL (7.4-10.4); Monocytes # (auto) 0.43 K/uL (0.11-0.59); Monocytes % (auto) 12.2 %; Neutrophils # (auto) 2.67 K/uL (1.4-6.5); Neutrophils % (auto) 75.8 %; Platelet Count 141 K/uL (130-400); RDW Coefficient of Variation 12.9 % (11.5-14.5); RDW Standard Deviation 41.6 fL (36.4-46.3); Red Blood Count 3.57 M/uL (4.7-6.1); White Blood Count 3.52 K/uL (4.8-10.8)
[2020-08-25 08:39] LABS: D Dimer 730 ug/L FEU (0-500)
[2020-08-25] MEDS: ENOXAPARIN INJ 40 MG/0.4 ML SYR SQ SCH (08:42)
[2020-08-25] MEDS: ATORVASTATIN 40 MG TAB PO SCH (08:44)
[2020-08-25] MEDS: MULTIVITAMIN TAB PO SCH (08:44)
[2020-08-25] MEDS: CLOPIDOGREL BISULFATE 75 MG TAB PO SCH (08:45)
[2020-08-25] MEDS: lisinopril 10 MG TAB PO SCH (08:45)
[2020-08-25] MEDS: METOPROLOL SUCC 25MG EXT REL TAB PO SCH (08:45)
[2020-08-25] MEDS: PANTOprazole 40 MG TAB PO SCH (08:45)
[2020-08-25 08:53] LABS: BUN Creatinine Ratio 14.5 (10-20); Calcium 8.2 mg/dl (8.5-10.1); Creatinine Clr Calc Pharmacy 55.3 ml/min; Est GFR (African American) 82.3 ml/min; Potassium 3.6 mmol/L (3.5-5.1)
[2020-08-25 09:34] LABS: C Reactive Protein 2.68 mg/dl (0-0.29); Ferritin 702.2 ng/ml (8-388); Troponin I 0.02 ng/ml (0-0.045)
--- NOTE | 2020-08-25 10:03 | Communication Note ---
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 Found to have COVID 19 pneumonia Patient seen and examined this morning Patient is a poor historian. Currently reports only weakness. Denied cough but RN reported he had been coughing History and physical exam as detailed by Dr Hunter this morning Labs notable for WBC of 3.5, Hb 10.7, DDimer 730, Ferritin 702, CRP 2.68 XR show alveolar opacities. -COVID 19 pneumonia Currently on room air with good saturation Monitor. If becomes hypoxic, will start dexamethasone and remdesivir. Monitor inflammatory markers Continue lovenox sq. If hypoxic, tachycardic or increased DDimer, will get CT PE to rule out PE PT/OT eval Agree with other plans as detailed by Dr Hunter this morning
--- NOTE | 2020-08-25 12:03 | Electrocardiogram Report ---
Test Reason : Blood Pressure : / mmHG Vent. Rate : 055 BPM Atrial Rate : 055 BPM P-R Int : 212 ms QRS Dur : 088 ms QT Int : 408 ms P-R-T Axes : 050 -21 -04 degrees QTc Int : 390 ms Poor data quality, interpretation may be adversely affected Sinus bradycardia with 1st degree A-V block with Premature supraventricular complexes Moderate voltage criteria for LVH, may be normal variant Nonspecific ST abnormality Abnormal ECG When compared with ECG of 23-FEB-2020 13:53, Premature supraventricular complexes are now Present Confirmed by Elian Tellez ([id number]) on 08/25/2020 12:03:30 PM Referred By: REFERRED SELF Confirmed By:Juan Tellez
--- NOTE | 2020-08-25 17:12 | Electrocardiogram Report ---
Test Reason : Blood Pressure : / mmHG Vent. Rate : 065 BPM Atrial Rate : 065 BPM P-R Int : 220 ms QRS Dur : 098 ms QT Int : 416 ms P-R-T Axes : 061 -18 026 degrees QTc Int : 432 ms Sinus rhythm with 1st degree A-V block with Premature atrial complexes Moderate voltage criteria for LVH, may be normal variant Borderline ECG When compared with ECG of 24-AUG-2020 22:05, ST no longer depressed in Inferior leads Confirmed by Elian Tellez ([id number]) on 08/25/2020 5:11:56 PM Referred By: REFERRED SELF Confirmed By:Juan Tellez
[2020-08-26] MEDS ORDERED: REMDESIVIR 200 MG in SODIUM CHLORIDE 0.9% 210 ML IV STA (08:38)
[2020-08-26 09:24] LABS: Basophils # (auto) 0.01 K/uL (0-0.2); Basophils % (auto) 0.2 %; Hematocrit (blood only) 36.1 % (42-52); Hemoglobin 12.8 g/dL (14.0-18.0); Immature Granulocytes # (auto) 0.01 K/uL (0.00-0.02); Immature Granulocytes % (auto) 0.2 %; Lymphocytes # (auto) 0.35 K/uL (1.2-3.4); Mean Corpuscular Hemoglobin 30.7 pg (25-34); Mean Corpuscular Hgb Conc 35.5 g/dL (32-36); Mean Corpuscular Volume 86.6 fL (80-100); Mean Platelet Volume 10.6 fL (7.4-10.4); Monocytes # (auto) 0.48 K/uL (0.11-0.59); Monocytes % (auto) 9.6 %; Neutrophils # (auto) 4.15 K/uL (1.4-6.5); Platelet Count 170 K/uL (130-400); RDW Coefficient of Variation 12.9 % (11.5-14.5); RDW Standard Deviation 41.5 fL (36.4-46.3); Red Blood Count 4.17 M/uL (4.7-6.1)
[2020-08-26 09:34] LABS: D Dimer 810 ug/L FEU (0-500)
[2020-08-26 09:59] LABS: Albumin Level 3.6 gm/dl (3.4-5.0); BUN Creatinine Ratio 13.4 (10-20); C Reactive Protein 4.59 mg/dl (0-0.29); Calcium 9.1 mg/dl (8.5-10.1); Creatinine Clr Calc Pharmacy 54.7 ml/min; Est GFR (African American) 81.3 ml/min; Est GFR (Non-African American) 70.1 ml/min; Potassium 3.5 mmol/L (3.5-5.1)
[2020-08-26 10:04] LABS: Albumin Globulin Ratio 0.9 (0.9-2); Ferritin 1041.9 ng/ml (8-388); Globulin 4.1 gm/dl (2.5-4.0); Total Protein 7.7 gm/dl (6.4-8.2)
[2020-08-26] MEDS: dexAMETHasone 6 MG in SYRINGE 0 ML IV SCH (10:24)
[2020-08-26] MEDS: ENOXAPARIN INJ 40 MG/0.4 ML SYR SQ SCH (10:30)
[2020-08-26] MEDS: lisinopril 10 MG TAB PO SCH (10:32)
[2020-08-26] MEDS: ATORVASTATIN 40 MG TAB PO SCH (10:32)
[2020-08-26] MEDS: METOPROLOL SUCC 25MG EXT REL TAB PO SCH (10:32)
[2020-08-26] MEDS: PANTOprazole 40 MG TAB PO SCH (10:33)
[2020-08-26] MEDS: CLOPIDOGREL BISULFATE 75 MG TAB PO SCH (10:33)
[2020-08-26] MEDS: MULTIVITAMIN TAB PO SCH (10:33)
[2020-08-26] MEDS: SODIUM CHLORIDE 0.9% 10ML FLUSH IV SCH (10:34)
--- NOTE | 2020-08-26 17:59 | Hospitalist Progress Note ---
Date of Service August 26, 2020 Assessment & Plan (1) COVID-19: (2) Pneumonia due to COVID-19 virus: ASSESSMENT AND PLAN: This is an 84-year-old male who presents with ongoing illness and found to be COVID positive. 1. COVID 19 pneumonia -- O2 sats trending down but denies symptoms -- discussed with patient in detail and at length he is agreeable with initiation of Remdesivir and Decadron- Day 1 Incentive Spirometry, Flutter valve -- follow D dimer, etc -- Lovenox for DVT prophylaxis 2. History of coronary artery disease status post stent: Continue his Plavix, statin, and beta adonis. 3. History of hypertension: Continue on Toprol-XL and lisinopril. 4. 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 5. History of peripheral vascular disease: On Plavix and statin. 6. History of cerebrovascular accident: On Plavix and statin. 7. History of chronic kidney disease stage III: Creatinine 1.2. 8. Deep venous thrombosis prophylaxis: Lovenox. DISPOSITION: pending will order PT/OT Admission and Anticipated Discharge Date Admission Date: August 25, 2020 Subjective ff up for COVID 19 pneumonia seen resting in bedside chair, comfortable on room air tolerating Decadron and Remdesivir so far states he feels fine overall no dyspnea, cough, fever/chills, chest pain, leg pain appetite is good no other symptoms Review of Systems Review of Systems: All systems reviewed & are unremarkable except as noted in Subjective Physical Exam Physical Exam: General- oriented x 3, not in distress, speaks in sentences with no effort or accessory muscle use Head- atraumatic Eyes- PERRL, EOMI, anicteric ENT- oropharynx clear Neck- supple, no JVD, no adenopathy, no thyromegaly; carotids +2/2, no bruits appreciated Lungs- mild rales at the bases no wheezing Heart- normal rate, regular rhythm; no murmur, no gallop, no rub appreciated Abdomen- normal bowel sounds, nondistended, soft, nontender, no masses or hepatosplenomegaly Extremities- no pretibial edema, no calf tenderness; peripheral pulses intact Neuro- alert, oriented x 3; CN 2-12 grossly intact; motor 5/5 bilaterally;sensation 100% on all extremities; no other gross focal neurologic deficits Skin- warm & dry Results & Data Results & Data ([facility]) Vital Signs (Past 12 Hours) Vital Signs Temp Pulse Resp BP BP Pulse Ox 08/26/20 15:30 36.4 C L 63 20 123/68 90 08/26/20 11:44 37.7 C H 51 L 20 144/85 H 93 08/26/20 10:22 37.1 C 164/70 H 94 08/26/20 08:04 37.6 C H 60 18 177/73 H 173/76 H 93 08/26/20 08:03 37.6 C H 67 18 161/75 H 167/71 H 92 all noted and reviewed including below Laboratory Results Laboratory Results - last 24 hr 08/26/20 08/26/20 08/26/20 09:03 09:03 09:03 WBC 5.00 RBC 4.17 L Hgb 12.8 L Hct 36.1 L MCV 86.6 MCH 30.7 MCHC 35.5 RDW Std Deviation 41.5 RDW Coeff of Roderick 12.9 Plt Count 170 MPV 10.6 H Immature Gran % (Auto) 0.2 Neut % (Auto) 83.0 Lymph % (Auto) 7.0 Kings % (Auto) 9.6 Eos % (Auto) 0.0 Baso % (Auto) 0.2 Neut # (Auto) 4.15 Lymph # (Auto) 0.35 L Kings # (Auto) 0.48 Eos # (Auto) 0.00 Baso # (Auto) 0.01 Immature Gran # (Auto) 0.01 D-Dimer 810 H* Sodium 131 L Potassium 3.5 Chloride 99 Carbon Dioxide 24 Anion Gap 7.0 BUN 13 Creatinine 0.99 Est Cr Clr Drug Dosing 54.7 Est GFR ( Amer) 81.3 Est GFR (Non-Af Amer) 70.1 BUN/Creatinine Ratio 13.4 Glucose 117 H Calcium 9.1 Ferritin 1041.9 H Total Bilirubin 1.0 AST 50 H ALT 26 Alkaline Phosphatase 72 C-Reactive Protein 4.59 H Total Protein 7.7 Albumin 3.6 Globulin 4.1 H Albumin/Globulin Ratio 0.9
[2020-08-27] MEDS: dexAMETHasone 6 MG in SYRINGE 0 ML IV SCH (08:02)
[2020-08-27] MEDS: METOPROLOL SUCC 25MG EXT REL TAB PO SCH (08:02)
[2020-08-27 08:14] LABS: Hematocrit (blood only) 33.9 % (42-52); Hemoglobin 12.1 g/dL (14.0-18.0); Lymphocytes # (auto) 0.34 K/uL (1.2-3.4); Mean Corpuscular Hemoglobin 30.6 pg (25-34); Mean Corpuscular Hgb Conc 35.7 g/dL (32-36); Mean Corpuscular Volume 85.6 fL (80-100); Mean Platelet Volume 10.4 fL (7.4-10.4); Monocytes # (auto) 0.33 K/uL (0.11-0.59); Monocytes % (auto) 11.6 %; Neutrophils # (auto) 2.17 K/uL (1.4-6.5); Neutrophils % (auto) 76.4 %; Platelet Count 174 K/uL (130-400); RDW Standard Deviation 41.2 fL (36.4-46.3); Red Blood Count 3.96 M/uL (4.7-6.1); White Blood Count 2.84 K/uL (4.8-10.8)
[2020-08-27 08:50] LABS: Albumin Globulin Ratio 0.8 (0.9-2); Albumin Level 3.1 gm/dl (3.4-5.0); BUN Creatinine Ratio 19.9 (10-20); Bilirubin,Total 0.8 mg/dl (0.2-1); Calcium 9.3 mg/dl (8.5-10.1); Creatinine Clr Calc Pharmacy 56.4 ml/min; Est GFR (African American) 84.4 ml/min; Est GFR (Non-African American) 72.8 ml/min; Globulin 3.8 gm/dl (2.5-4.0); Potassium 4.3 mmol/L (3.5-5.1); Total Protein 6.9 gm/dl (6.4-8.2)
[2020-08-27] MEDS: lisinopril 10 MG TAB PO SCH (09:41)
[2020-08-27] MEDS: CLOPIDOGREL BISULFATE 75 MG TAB PO SCH (09:41)
[2020-08-27] MEDS: PANTOprazole 40 MG TAB PO SCH (09:41)
[2020-08-27] MEDS: ATORVASTATIN 40 MG TAB PO SCH (09:41)
[2020-08-27] MEDS: MULTIVITAMIN TAB PO SCH (09:41)
[2020-08-27] MEDS: ENOXAPARIN INJ 40 MG/0.4 ML SYR SQ SCH (09:42)
--- NOTE | 2020-08-27 11:24 | XRay Report ---
XR chest 1V portable HISTORY: Covid pneumonia. Follow-up. COMPARISON: Chest 08/24/2020. FINDINGS: No pneumothorax. No pleural effusions. The cardiac silhouette remains top normal in size. N o evidence for pulmonary edema. Near-complete resolution of the hazy bilateral airspace opacities con sistent with a resolving pneumonia. Small hazy density remains within the left lung base. Eventration of the diaphragm is again noted. IMPRESSION: Interval improvement in the hazy bilateral airspace opacities consistent with a resolving pneumonia. ACT 112: Negative or not required by law. Electronically signed by: Gildardo Alves M.D. 08/27/2020 11:23 AM
[2020-08-27] MEDS: REMDESIVIR 100 MG in SODIUM CHLORIDE 0.9% 230 ML IV SCH (11:58)
[2020-08-27] MEDS: SODIUM CHLORIDE 0.9% 10ML FLUSH IV SCH (13:07)
--- NOTE | 2020-08-27 19:22 | Hospitalist Progress Note ---
Date of Service August 27, 2020 Assessment & Plan (1) COVID-19: (2) Pneumonia due to COVID-19 virus: ASSESSMENT AND PLAN: This is an 84-year-old male who presents with ongoing illness and found to be COVID positive. 1. COVID 19 pneumonia -- O2 sats trended down to 90% but denies symptoms -- discussed with patient in detail and at length he is agreeable with initiation of Remdesivir and Decadron- day 2- tolerating well Incentive Spirometry, Flutter valve -- Lovenox for DVT prophylaxis 2. History of coronary artery disease status post stent: Continue his Plavix, statin, and beta adonis. 3. History of hypertension: Continue on Toprol-XL and lisinopril. 4. 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 5. History of peripheral vascular disease: On Plavix and statin. 6. History of cerebrovascular accident: On Plavix and statin. 7. History of chronic kidney disease stage III: Creatinine 1.2. 8. Deep venous thrombosis prophylaxis: Lovenox. DISPOSITION: pending will order PT/OT lives at home with family plan of care discussed with patient and her daughter Teressa over the phone in detail and at length all questions answered she is understanding, agreeable, comfortable with the plan of care Admission and Anticipated Discharge Date Admission Date: August 25, 2020 Subjective ff up for COVID 19 pneumonia seen resting in bed, comfortable in good spirits states he feels fine overall denies SOB, chest pain, palpitations, dizziness, nausea appetite is good no other symptoms Review of Systems Review of Systems: All systems reviewed & are unremarkable except as noted in Subjective Physical Exam Physical Exam: General- oriented x 2, not in distress, speaks in sentences with no effort or accessory muscle use Eyes- anicteric Neck- no JVD Lungs- mild rales at the bases, no wheezing Heart- normal rate, regular rhythm; no murmurs Abdomen- normal bowel sounds, nondistended, soft, nontender Extremities- no pretibial edema, no calf tenderness Neuro- alert, oriented x 2; no gross focal neurologic deficits Skin- warm & dry Results & Data Results & Data ([facility]) Vital Signs (Past 12 Hours) Vital Signs Temp Pulse Pulse Pulse Resp BP Pulse Ox 08/27/20 16:00 64 08/27/20 15:55 36.4 C L 64 16 138/56 L 94 08/27/20 13:07 08/27/20 12:00 36.4 C L 60 18 122/82 93 08/27/20 08:00 80 138/87 08/27/20 07:23 50 L Pulse Ox Pulse Ox 08/27/20 16:00 08/27/20 15:55 08/27/20 13:07 91 95 08/27/20 12:00 08/27/20 08:00 08/27/20 07:23 all noted and reviewed including below Laboratory Results Laboratory Results - last 24 hr 08/27/20 08/27/20 07:57 07:57 WBC 2.84 L RBC 3.96 L Hgb 12.1 L Hct 33.9 L MCV 85.6 MCH 30.6 MCHC 35.7 RDW Std Deviation 41.2 RDW Coeff of Roderick 13.0 Plt Count 174 MPV 10.4 Immature Gran % (Auto) 0.0 Neut % (Auto) 76.4 Lymph % (Auto) 12.0 Robeson % (Auto) 11.6 Eos % (Auto) 0.0 Baso % (Auto) 0.0 Neut # (Auto) 2.17 Lymph # (Auto) 0.34 L Rob[place] # (Auto) 0.33 Eos # (Auto) 0.00 Baso # (Auto) 0.00 Immature Gran # (Auto) 0.00 Sodium 136 Potassium 4.3 D Chloride 104 Carbon Dioxide 25 Anion Gap 7.0 BUN 19 H Creatinine 0.96 Est Cr Clr Drug Dosing 56.4 Est GFR ( Amer) 84.4 Est GFR (Non-Af Amer) 72.8 BUN/Creatinine Ratio 19.9 Glucose 123 H Calcium 9.3 Total Bilirubin 0.8 AST 47 H ALT 27 Alkaline Phosphatase 65 Total Protein 6.9 Albumin 3.1 L Globulin 3.8 Albumin/Globulin Ratio 0.8 L
[2020-08-28] MEDS: ENOXAPARIN INJ 40 MG/0.4 ML SYR SQ SCH ×2 (07:54→08:25)
[2020-08-28] MEDS: dexAMETHasone 6 MG in SYRINGE 0 ML IV SCH (07:54)
[2020-08-28] MEDS: METOPROLOL SUCC 25MG EXT REL TAB PO SCH (07:54)
[2020-08-28] MEDS: CLOPIDOGREL BISULFATE 75 MG TAB PO SCH (07:55)
[2020-08-28] MEDS: ATORVASTATIN 40 MG TAB PO SCH (07:55)
[2020-08-28] MEDS: lisinopril 10 MG TAB PO SCH (07:56)
[2020-08-28] MEDS: MULTIVITAMIN TAB PO SCH (07:56)
[2020-08-28] MEDS: PANTOprazole 40 MG TAB PO SCH (07:57)
[2020-08-28 08:05] LABS: Hematocrit (blood only) 33.7 % (42-52); Hemoglobin 12.1 g/dL (14.0-18.0); Immature Granulocytes # (auto) 0.02 K/uL (0.00-0.02); Immature Granulocytes % (auto) 0.3 %; Lymphocytes # (auto) 0.44 K/uL (1.2-3.4); Lymphocytes % (auto) 5.8 %; Mean Corpuscular Hemoglobin 30.3 pg (25-34); Mean Corpuscular Hgb Conc 35.9 g/dL (32-36); Mean Corpuscular Volume 84.5 fL (80-100); Mean Platelet Volume 10.6 fL (7.4-10.4); Monocytes # (auto) 0.78 K/uL (0.11-0.59); Monocytes % (auto) 10.4 %; Neutrophils # (auto) 6.29 K/uL (1.4-6.5); Neutrophils % (auto) 83.5 %; Platelet Count 195 K/uL (130-400); RDW Coefficient of Variation 12.9 % (11.5-14.5); RDW Standard Deviation 39.7 fL (36.4-46.3); Red Blood Count 3.99 M/uL (4.7-6.1); White Blood Count 7.53 K/uL (4.8-10.8)
[2020-08-28 08:35] LABS: Calcium 8.8 mg/dl (8.5-10.1); Creatinine Clr Calc Pharmacy 54.2 ml/min; Est GFR (African American) 80.3 ml/min; Est GFR (Non-African American) 69.3 ml/min; Potassium 3.7 mmol/L (3.5-5.1)
[2020-08-28 08:38] LABS: Albumin Globulin Ratio 0.8 (0.9-2); Bilirubin,Total 0.6 mg/dl (0.2-1); Globulin 3.5 gm/dl (2.5-4.0); Total Protein 6.5 gm/dl (6.4-8.2)
[2020-08-28] MEDS: REMDESIVIR 100 MG in SODIUM CHLORIDE 0.9% 230 ML IV SCH (11:57)
[2020-08-28] MEDS: SODIUM CHLORIDE 0.9% 10ML FLUSH IV SCH (13:05)
--- NOTE | 2020-08-28 17:19 | Hospitalist Progress Note ---
Date of Service August 28, 2020 Assessment & Plan (1) COVID-19: (2) Pneumonia due to COVID-19 virus: ASSESSMENT AND PLAN: This is an 84-year-old male who presents with ongoing illness and found to be COVID positive. 1. COVID 19 pneumonia -- O2 sats 90-92% Remdesivir and Decadron- day 3- tolerating well Incentive Spirometry, Flutter valve -- Lovenox for DVT prophylaxis -- repeat CXR tomorrow 2. History of coronary artery disease status post stent: Continue his Plavix, statin, and beta adonis. 3. History of hypertension: Continue on Toprol-XL and lisinopril. 4. 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 5. History of peripheral vascular disease: On Plavix and statin. 6. History of cerebrovascular accident: On Plavix and statin. 7. History of chronic kidney disease stage III: Creatinine 1.2. 8. Deep venous thrombosis prophylaxis: Lovenox. DISPOSITION: pending will order PT/OT lives at home with family plan of care discussed with patient and her daughter Teressa over the phone in detail and at length all questions answered she is understanding, agreeable, comfortable with the plan of care Admission and Anticipated Discharge Date Admission Date: August 25, 2020 Subjective ff up for COVID 19 pneumonia seen resting in bed, sitting up, comfortable, in good spirits states he feels fine overall breathing is fine intermittent cough no chest pain, leg pain appetite is good no diarrhea no other symptoms Review of Systems Review of Systems: All systems reviewed & are unremarkable except as noted in Subjective Physical Exam Physical Exam: General- oriented x 2, not in distress, speaks in sentences with no effort or accessory muscle use Eyes- anicteric Neck- no JVD Lungs- clear BS BL no wheezing Heart- normal rate, regular rhythm; no murmurs Abdomen- normal bowel sounds, nondistended, soft, nontender Extremities- no pretibial edema, no calf tenderness Neuro- alert, oriented x 2; no gross focal neurologic deficits Skin- warm & dry Results & Data Results & Data ([facility]) Vital Signs (Past 12 Hours) Vital Signs Temp Pulse Pulse Resp BP Pulse Ox 08/28/20 16:00 56 L 08/28/20 15:00 36.6 C 57 L 18 143/83 H 90 08/28/20 11:58 36.4 C L 08/28/20 11:00 65 18 132/64 92 08/28/20 07:52 36.3 C L 74 18 162/93 H 92 08/28/20 07:22 67
[2020-08-29 06:03] LABS: Hematocrit (blood only) 33.3 % (42-52); Hemoglobin 11.8 g/dL (14.0-18.0); Immature Granulocytes # (auto) 0.03 K/uL (0.00-0.02); Immature Granulocytes % (auto) 0.3 %; Lymphocytes # (auto) 0.41 K/uL (1.2-3.4); Lymphocytes % (auto) 4.2 %; Mean Corpuscular Hemoglobin 29.9 pg (25-34); Mean Corpuscular Hgb Conc 35.4 g/dL (32-36); Mean Corpuscular Volume 84.3 fL (80-100); Mean Platelet Volume 10.6 fL (7.4-10.4); Monocytes # (auto) 1.01 K/uL (0.11-0.59); Monocytes % (auto) 10.3 %; Neutrophils # (auto) 8.32 K/uL (1.4-6.5); Neutrophils % (auto) 85.2 %; Platelet Count 215 K/uL (130-400); Red Blood Count 3.95 M/uL (4.7-6.1); White Blood Count 9.77 K/uL (4.8-10.8)
[2020-08-29 06:39] LABS: BUN Creatinine Ratio 23.5 (10-20); Calcium 8.7 mg/dl (8.5-10.1); Creatinine Clr Calc Pharmacy 53.6 ml/min; Est GFR (African American) 79.4 ml/min; Est GFR (Non-African American) 68.5 ml/min; Potassium 3.9 mmol/L (3.5-5.1)
[2020-08-29 06:41] LABS: Albumin Globulin Ratio 0.9 (0.9-2); Bilirubin,Total 0.7 mg/dl (0.2-1); Globulin 3.5 gm/dl (2.5-4.0); Total Protein 6.5 gm/dl (6.4-8.2)
[2020-08-29] MEDS: ENOXAPARIN INJ 40 MG/0.4 ML SYR SQ SCH (10:24)
[2020-08-29] MEDS: dexAMETHasone 6 MG in SYRINGE 0 ML IV SCH (10:25)
[2020-08-29] MEDS: ATORVASTATIN 40 MG TAB PO SCH (10:26)
[2020-08-29] MEDS: PANTOprazole 40 MG TAB PO SCH (10:26)
[2020-08-29] MEDS: lisinopril 10 MG TAB PO SCH (10:27)
[2020-08-29] MEDS: MULTIVITAMIN TAB PO SCH (10:27)
[2020-08-29] MEDS: METOPROLOL SUCC 25MG EXT REL TAB PO SCH (10:28)
[2020-08-29] MEDS: CLOPIDOGREL BISULFATE 75 MG TAB PO SCH (10:28)
[2020-08-29] MEDS: REMDESIVIR 100 MG in SODIUM CHLORIDE 0.9% 230 ML IV SCH (12:44)
[2020-08-29] MEDS: SODIUM CHLORIDE 0.9% 10ML FLUSH IV SCH (12:44)
--- NOTE | 2020-08-29 17:56 | Hospitalist Progress Note ---
Date of Service August 29, 2020 Assessment & Plan (1) COVID-19: (2) Pneumonia due to COVID-19 virus: ASSESSMENT AND PLAN: This is an 84-year-old male who presents with ongoing illness and found to be COVID positive. 1. COVID 19 pneumonia -- repeat CXR improving -- O2 sats 92-94% Remdesivir and Decadron- day 4- tolerating well Incentive Spirometry, Flutter valve -- Lovenox for DVT prophylaxis 2. History of coronary artery disease status post stent: -- Continue Plavix, statin, and beta adonis. 3. History of hypertension: -- Continue on Toprol-XL and lisinopril. 4. 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 5. History of peripheral vascular disease: On Plavix and statin. 6. History of cerebrovascular accident: On Plavix and statin. 7. History of chronic kidney disease stage III: Creatinine 1.2. 8. Deep venous thrombosis prophylaxis: Lovenox. DISPOSITION: pending will order PT/OT lives at home with family Admission and Anticipated Discharge Date Admission Date: August 25, 2020 Subjective ff up for COVID 19 pneumonia seen resting in bed, comfortable watching TV states he feels fine overall breathing is fine, occasional cough no other symptoms Review of Systems Review of Systems: All systems reviewed & are unremarkable except as noted in Subjective Physical Exam Physical Exam: General- oriented x 2, not in distress, speaks in sentences with no effort or accessory muscle use Eyes- anicteric Neck- no JVD Lungs- clear breath sounds bilaterally Heart- normal rate, regular rhythm; no murmurs Abdomen- normal bowel sounds, nondistended, soft, nontender Extremities- no pretibial edema, no calf tenderness Neuro- alert, oriented x 2; no gross focal neurologic deficits Skin- warm & dry Results & Data Results & Data ([facility]) Vital Signs (Past 12 Hours) Vital Signs Temp Pulse Resp BP Pulse Ox 08/29/20 17:02 67 20 151/62 H 92 08/29/20 11:20 36.5 C 53 L 20 123/67 94 08/29/20 10:24 66 08/29/20 07:05 36.4 C L 51 L 20 153/92 H 92 all noted and reviewed including below Laboratory Results Laboratory Results - last 24 hr 08/29/20 08/29/20 05:49 05:49 WBC 9.77 RBC 3.95 L Hgb 11.8 L Hct 33.3 L MCV 84.3 MCH 29.9 MCHC 35.4 RDW Std Deviation 40.0 RDW Coeff of Roderick 13.0 Plt Count 215 MPV 10.6 H Immature Gran % (Auto) 0.3 Neut % (Auto) 85.2 Lymph % (Auto) 4.2 Caroline % (Auto) 10.3 Eos % (Auto) 0.0 Baso % (Auto) 0.0 Neut # (Auto) 8.32 H Lymph # (Auto) 0.41 L Caroline # (Auto) 1.01 H Eos # (Auto) 0.00 Baso # (Auto) 0.00 Immature Gran # (Auto) 0.03 H Sodium 139 Potassium 3.9 Chloride 109 H Carbon Dioxide 25 Anion Gap 5.0 BUN 24 H Creatinine 1.01 Est Cr Clr Drug Dosing 53.6 Est GFR ( Amer) 79.4 Est GFR (Non-Af Amer) 68.5 BUN/Creatinine Ratio 23.5 H Glucose 108 H Calcium 8.7 Total Bilirubin 0.7 AST 53 H ALT 45 Alkaline Phosphatase 65 Total Protein 6.5 Albumin 3.0 L Globulin 3.5 Albumin/Globulin Ratio 0.9
[2020-08-30 09:16] LABS: Hematocrit (blood only) 37.3 % (42-52); Hemoglobin 13.1 g/dL (14.0-18.0); Immature Granulocytes # (auto) 0.04 K/uL (0.00-0.02); Immature Granulocytes % (auto) 0.4 %; Lymphocytes # (auto) 0.69 K/uL (1.2-3.4); Lymphocytes % (auto) 6.2 %; Mean Corpuscular Hemoglobin 30.5 pg (25-34); Mean Corpuscular Hgb Conc 35.1 g/dL (32-36); Mean Corpuscular Volume 86.9 fL (80-100); Mean Platelet Volume 10.7 fL (7.4-10.4); Monocytes # (auto) 0.12 K/uL (0.11-0.59); Monocytes % (auto) 1.1 %; Neutrophils # (auto) 10.34 K/uL (1.4-6.5); Neutrophils % (auto) 92.3 %; Platelet Count 260 K/uL (130-400); RDW Coefficient of Variation 13.3 % (11.5-14.5); RDW Standard Deviation 42.4 fL (36.4-46.3); Red Blood Count 4.29 M/uL (4.7-6.1); White Blood Count 11.19 K/uL (4.8-10.8)
[2020-08-30 09:32] LABS: Albumin Level 3.3 gm/dl (3.4-5.0); BUN Creatinine Ratio 24.8 (10-20); Calcium 8.7 mg/dl (8.5-10.1); Creatinine Clr Calc Pharmacy 53.6 ml/min; Est GFR (African American) 79.4 ml/min; Est GFR (Non-African American) 68.5 ml/min; Potassium 3.6 mmol/L (3.5-5.1)
[2020-08-30 09:34] LABS: Albumin Globulin Ratio 0.9 (0.9-2); Bilirubin,Total 0.8 mg/dl (0.2-1); Globulin 3.6 gm/dl (2.5-4.0); Total Protein 6.9 gm/dl (6.4-8.2)
[2020-08-30] MEDS: dexAMETHasone 6 MG in SYRINGE 0 ML IV SCH (10:16)
[2020-08-30] MEDS: ENOXAPARIN INJ 40 MG/0.4 ML SYR SQ SCH (10:17)
[2020-08-30] MEDS: MULTIVITAMIN TAB PO SCH (10:17)
[2020-08-30] MEDS: CLOPIDOGREL BISULFATE 75 MG TAB PO SCH (10:18)
[2020-08-30] MEDS: METOPROLOL SUCC 25MG EXT REL TAB PO SCH (10:18)
[2020-08-30] MEDS: ATORVASTATIN 40 MG TAB PO SCH (10:19)
[2020-08-30] MEDS: PANTOprazole 40 MG TAB PO SCH (10:19)
[2020-08-30] MEDS: lisinopril 10 MG TAB PO SCH (10:19)
--- NOTE | 2020-08-30 10:58 | Hospitalist Progress Note ---
Date of Service August 30, 2020 Assessment & Plan (1) COVID-19: (2) Pneumonia due to COVID-19 virus: ASSESSMENT AND PLAN: This is an 84-year-old male who presents with ongoing illness and found to be COVID positive. 1. COVID 19 pneumonia -- repeat CXR improving -- O2 sats 92-94% Remdesivir and Decadron- day 5- tolerating well Incentive Spirometry, Flutter valve -- Lovenox for DVT prophylaxis -- cleared for d/c home Decadron 6mg po daily x 5 more days to complete 10 days continue home isolation for 4 more days to complete 10 days ff up with PCP next week 2. History of coronary artery disease status post stent: -- Continue Plavix, statin, and beta adonis. 3. History of hypertension: -- Continue on Toprol-XL and lisinopril. 4. 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 5. History of peripheral vascular disease: On Plavix and statin. 6. History of cerebrovascular accident: On Plavix and statin. 7. History of chronic kidney disease stage III: Creatinine 1.2. 8. Deep venous thrombosis prophylaxis: Lovenox. DISPOSITION: d/c home ff up with PCP in 1 week plan of care discussed with patient and his daughter in detail and at length all questions answered they are understanding, agreeable, comfortable with the plan of care Admission and Anticipated Discharge Date Admission Date: August 25, 2020 Subjective ff up for COVID 19 pneumonia seen resting in chair, comfortable states he feels fine overall no dyspnea, cough, chest pain, dizziness no abdominal pain, nausea/vomiting no other symptoms Review of Systems Review of Systems: All systems reviewed & are unremarkable except as noted in Subjective Physical Exam Physical Exam: General- oriented x 2, not in distress, speaks in sentences with no effort or accessory muscle use Eyes- anicteric Neck- no JVD Lungs- clear breath sounds , no crackles or wheezing bilaterally Heart- normal rate, regular rhythm; no murmurs Abdomen- normal bowel sounds, nondistended, soft, nontender Extremities- no pretibial edema, no calf tenderness Neuro- alert, oriented x 3; no gross focal neurologic deficits Skin- warm & dry Results & Data Results & Data ([facility]) Vital Signs (Past 12 Hours) Vital Signs Temp Pulse Pulse Pulse Pulse Pulse Resp 08/30/20 08:46 60 57 L 59 L 08/30/20 07:00 36.5 C 46 L 20 08/30/20 00:04 44 L 08/29/20 23:00 36.3 C L 47 L 20 Resp Resp Resp BP Pulse Ox Pulse Ox Pulse Ox 08/30/20 08:46 18 16 16 92 93 08/30/20 07:00 143/77 H 94 08/30/20 00:04 08/29/20 23:00 166/92 H 92 Pulse Ox 08/30/20 08:46 96 08/30/20 07:00 08/30/20 00:04 08/29/20 23:00
[2020-08-30] MEDS: REMDESIVIR 100 MG in SODIUM CHLORIDE 0.9% 230 ML IV SCH (12:23)
[2020-08-30] MEDS: SODIUM CHLORIDE 0.9% 10ML FLUSH IV SCH (12:24)
--- NOTE | 2020-08-30 13:22 | Discharge Summary ---
Date of Service August 30, 2020 Admission HPI Per Admitting Provider CHIEF COMPLAINT: Weakness. 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 The patient lives alone, was brought in by daughter because the patient is having weakness in the legs since a couple of days, though the patient denies any other complaints, but today he has some cough and his COVID test came back positive. He did not take any COVID shots. The patient is afebrile. Denies any chest pain, no shortness of breath. No nausea, no vomiting, no abdominal pain, no loss of sense of smell or taste. Appetite is okay. No headache, no blurred vision. Has some runny nose. No sore throat. Somewhat hard of hearing. Normal bowel and bladder movements. Currently resting comfortably and hemodynamically stable. Saturating fine on room air, but somewhat tachypneic. Admission Exam Per Admitting Provider GENERAL: The patient is of moderate build, not in acute distress. VITAL SIGNS: Temperature 37.1, pulse 64, respiratory rate 36, blood pressure 153/92, oxygen 96% on room air. HEENT: Atraumatic Blind in left eye? Oral mucosa moist. NECK: No JVD. No neck masses. CARDIOVASCULAR: S1, S2 heard, regular rate and rhythm, no murmur, no gallop. RESPIRATORY SYSTEM: Normal AP diameter. No accessory muscle use. No wheezing, no crackles. ABDOMEN: Soft, bowel sounds present, nontender. No distention. CENTRAL NERVOUS SYSTEM: Cranial nerves II-XII grossly intact. Nonfocal. EXTREMITIES: No edema, no erythema. Principal Diagnosis COVID 19 PNEUMONIA Discharge Exam General- oriented x 2, not in distress, speaks in sentences with no effort or accessory muscle use Eyes- anicteric Neck- no JVD Lungs- clear breath sounds , no crackles or wheezing bilaterally Heart- normal rate, regular rhythm; no murmurs Abdomen- normal bowel sounds, nondistended, soft, nontender Extremities- no pretibial edema, no calf tenderness Neuro- alert, oriented x 3; no gross focal neurologic deficits Skin- warm & dry Discharge Data Allergies Allergy/AdvReac Type Severity Reaction Status Date / Time No Known Allergies Allergy Unknown Verified 08/24/20 22:03 Consultations XR chest 1V portable HISTORY: 84 years-old Male weakness acute weakness COMPARISON: Chest radiograph 02/23/2020 TECHNIQUE: Portable AP view the chest FINDINGS: Cardiac silhouette is upper limits of normal in size. Coronary arterial stent. Calcified plaque of the thoracic aorta. No pneumothorax or large pleural effusion. Mixed reticular interstitial and patchy airspace opacities are noted within a mid and lower lung zone prominent distribution. Degenerative changes of the shoulders and spine. IMPRESSION: Mixed interstitial and alveolar opacities are suggestive of multifocal pneumonia. ACT 112: Negative or not required by law. The above report was generated using voice recognition software. It may contain grammatical, syntax or spelling errors. Electronically signed by: Doe Stafford M.D. 08/25/2020 6:30 AM XR chest 1V portable HISTORY: Covid pneumonia. Follow-up. COMPARISON: Chest 08/24/2020. FINDINGS: No pneumothorax. No pleural effusions. The cardiac silhouette remains top normal in size. No evidence for pulmonary edema. Near-complete resolution of the hazy bilateral airspace opacities consistent with a resolving pneumonia. Small hazy density remains within the left lung base. Eventration of the diaphragm is again noted. IMPRESSION: Interval improvement in the hazy bilateral airspace opacities consistent with a resolving pneumonia. ACT 112: Negative or not required by law. Hospital Course (1) COVID-19: (2) Pneumonia due to COVID-19 virus: ASSESSMENT AND PLAN: This is an 84-year-old male who presents with ongoing illness and found to be COVID positive. 1. COVID 19 pneumonia -- admitted for weakness, cough -- O2 saturation at one point decreased t 90% -- given Remdesivir and Decadron -- O2 sats improved to 92-94% clinically improved as well -- repeat CXR improved Remdesivir and Decadron given x 5 days Incentive Spirometry, Flutter valve -- Lovenox for DVT prophylaxis -- cleared for d/c home Decadron 6mg po daily x 5 more days to complete 10 days continue home isolation for 4 more days to complete 10 days ff up with PCP next week 2. History of coronary artery disease status post stent: -- Continue Plavix, statin, and beta adonis. 3. History of hypertension: -- Continue on Toprol-XL and lisinopril. 4. 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 5. History of peripheral vascular disease: On Plavix and statin. 6. History of cerebrovascular accident: On Plavix and statin. 7. History of chronic kidney disease stage III: Creatinine 1.2. 8. Deep venous thrombosis prophylaxis: Lovenox. DISPOSITION: d/c home ff up with PCP in 1 week plan of care discussed with patient and his daughter in detail and at length all questions answered they are understanding, agreeable, comfortable with the plan of care Total Time Total Time Spent Total Time Spent (In Minutes): 50 minutes Discharge Plan Discharge Items Patient Disposition: Home - Self-Care Reason For Visit: ILLNESS Discharge Diagnosis: COVID 19 PNEUMONIA Activity: Resume your previous activity Activity Comment: GRADUALLY TOLERATED Lifting: Wait until after follow-up appointment Exercise/Sports: Wait until after follow-up appointment Driving/Machine Use: NO DRIVING Non-emergency contact: Primary Care Provider Call non-emergency contact if: you have any medication questions, your symptoms worsen, your pain is not controlled, your pain is worsening, your pain is unu sual for you, your pain is concerning for you and you have a fever Follow-up/Referrals: Joaquin Ramirez DO [Primary Care Provider] - Diet: Heart Healthy Addtl Attending Provider Instructions: YOU HAVE BEEN TREATED FOR COVID PNEUMONIA. YOU HAVE COMPLETED THE COURSE OF ANTIVIRAL CALLED REMDESIVIR. YOU STILL NEED 5 MORE DAYS OF ORAL STEROID CALLED DECADRON 6MG 1 TABLET DAILY. DRINK PLENTY OF FLUIDS. AMBULATE FREQUENTLY TO PREVENT BLOOD CLOTS. CONTINUE TO USE INCENTIVE SPIROMETRY- EVERY HOUR, AND FLUTTER VALVE- 4 TIMES A DAY, AT HOME TO IMPROVE YOUR OXYGEN LEVEL. YOU STILL NEED TO BE ISOLATED AT HOME FOR AT LEAST 4 DAYS, AND UNTIL YOUR COUGH RESOLVES. Home Isolation COVID-19 Instructions The following information about Home Isolation is from the CDC Website: https://www.cdc.gov/coronavirus/2019-ncov/hcp/xcnfxccl-rsebfwn-bfsqmr.html Stay home except to get medical care People who are mildly ill with COVID-19 are able to isolate at home during their illness. You should restrict activities outside your home, except for getting medical care. Do not go to work, school, or public areas. Avoid using public transportation, ride-sharing, or taxis. Separate yourself from other people and animals in your home People: As much as possible, you should stay in a specific room and away from other people in your home. Also, you should use a separate bathroom, if available. Animals: You should restrict contact with pets and other animals while you are sick with COVID-19, just like you would around other people. Although there have not been reports of pets or other animals becoming sick with COVID-19, it is still recommended that people sick with COVID-19 limit contact with animals until more information is known about the virus. When possible, have another member of your household care for your animals while you are sick. If you are sick with COVID-19, avoid contact with your pet, including petting, snuggling, being kissed or licked, and sharing food. If you must care for your pet or be around animals while you are sick, wash your hands before and after you interact with pets and wear a face mask. Call ahead before visiting your doctor If you have a medical appointment, call the healthcare provider and tell them that you have or may have COVID-19. This will help the healthcare providers office take steps to keep other people from getting infected or exposed. Wear a face mask You should wear a face mask when you are around other people (e.g., sharing a room or vehicle) or pets and before you enter a healthcare providers office. If you are not able to wear a face mask (for example, because it causes trouble breathing), then people who live with you should not stay in the same room with you, or they should wear a face mask if they enter your room. Cover your coughs and sneezes Cover your mouth and nose with a tissue when you cough or sneeze. Throw used tissues in a lined trash can. Immediately wash your hands with soap and water for at least 20 seconds or, if soap and water are not available, clean your hands with an alcohol-based hand sales order administrator that contains at least 60% alcohol. Clean your hands often Wash your hands often with soap and water for at least 20 seconds, especially after blowing your nose, coughing, or sneezing; going to the bathroom; and before eating or preparing food. If soap and water are not readily available, use an alcohol-based hand sales order administrator with at least 60% alcohol, covering all surfaces of your hands and rubbing them together until they feel dry. Soap and water are the best option if hands are visibly dirty. Avoid touching your eyes, nose, and mouth with unwashed hands. Avoid sharing personal household items You should not share dishes, drinking glasses, cups, eating utensils, towels, or bedding with other people or pets in your home. After using these items, they should be washed thoroughly with soap and water. Clean all high-touch surfaces everyday High touch surfaces include counters, tabletops, doorknobs, bathroom fixtures, toilets, phones, keyboards, tablets, and bedside tables. Also, clean any surfaces that may have blood, stool, or body fluids on them. Use a household cleaning spray or wipe, according to the label instructions. Labels contain instructions for safe and effective use of the cleaning product including precautions you should take when applying the product, such as wearing gloves and making sure you have good ventilation during use of the product. Monitor your symptoms Seek prompt medical attention if your illness is worsening (e.g., difficulty breathing).Beforeseeking care, call your healthcare provider and tell them that you have, or are being evaluated for, COVID-19. Put on a face mask before you enter the facility. These steps will help the healthcare providers office to keep other people in the office or waiting room from getting infected or exposed. Ask your healthcare provider to call the local or state health department. Persons who are placed under active monitoring or facilitated self- monitoring should follow instructions provided by their local health department or occupational health professionals, as appropriate. When working with your local health department check their available hours. If you have a medical emergency and need to call 911, notify the dispatch personnel that you have, or are being evaluated for COVID-19. If possible, put on a face mask before emergency medical services arrive. Discontinuing home isolation Patients with confirmed COVID-19 should remain under home isolation precautions until the risk of secondary transmission to others is thought to be low. The decision to discontinue home isolation precautions should be made on a [id number] basis, in consultation with healthcare providers and state and local health departments. FOLLOW UP WITH PRIMARY CARE PHYSICIAN IN 1 WEEK. THE CLINIC WILL BE CALLING YOU FOR THE APPOINTMENT. Addtl Locomotive Firer/Fireman Provider Instructions: FOLLOW UP WITH PRIMARY CARE PHYSICIAN IN 1 WEEK. THE CLINIC WILL BE CALLING YOU FOR THE APPOINTMENT. Pending Studies at Discharge: No Stand-Alone Forms: [facility], Smoking Cessation Medications and DC Order Prescriptions: New dexamethasone [Decadron] 6 mg tablet 6 mg PO DAILY Qty: 5 RF: 0 Continued atorvastatin 80 mg Tablet 80 mg PO QAM RF: 0 metoprolol succinate [Toprol XL] 25 mg Tablet Extended Release 24 Hr 12.5 mg PO DAILY RF: 0 nitroglycerin [Nitrostat] 0.4 mg Tablet, Sublingual 0.4 mg Sublingual DIRECTED PRN (Reason: Chest Pain) RF: 0 multivitamin Tablet 1 tab PO DAILY RF: 0 clopidogrel 75 mg tablet 75 mg PO DAILY Qty: 30 RF: 5 lisinopril 10 mg tablet 10 mg PO DAILY Qty: 30 RF: 5 pantoprazole 40 mg tablet,delayed release (DR/EC) 40 mg PO DAILY Qty: 30 RF: 5 Discharge Orders: Discharge Order (Routine); Ordered 08/30/20 Ordered By: Dony Borjas Admission Data Admit Date/Time: 08/25/20 01:21 Attending Provider: Dony Borjas Admit Provider: Poncho Hunter Primary Care Provider: Joaquin Ramirez Other Providers: Poncho Hunter ; Adina Moore I. ; [facility],Home [facility]
== END 2020-08-30 16:00 | disposition home or self-care (01) | DRG 177 ==
LOC: ED 20:00 → 2W 08-25 01:21 → SUATTDRO 08-25 01:21 → 2W 08-25 02:15

== ENCOUNTER 2021-01-23 08:54 | Inpatient (IN) ==
--- NOTE | 2021-01-23 10:43 | Emergency Department Note ---
Impression & Plan COVID-19, Acute hyponatremia ED Provider Note NAME: CRYSTAL BRUNNER AGE: 85 SEX: M : 1935 ARRIVES VIA: Walk-In INFORMANT: Patient, ED PROVIDER(S): Ari Khalil MD Chief Complaint: Vomiting, shortness of breath HPI: Patient does present with family member at bedside due to concern for vomiting and shortness of breath. The patient reportedly had one episode of nonbloody nonbilious emesis today. Patient had complained of some nausea and some headache. Currently the patient denies any acute complaints at this time. The patient reportedly had a fall off the toilet last evening but no syncope. Patient did not have any head strike or loss of consciousness. Patient is not vaccinated for Covid. Patient denies any acute shortness of breath. Patient did recently start doxycycline for Lyme's disease and last took was yesterday. The patient did not take his morning medications. Patient is a non-smoker. ROS: See HPI for pertinent positives and negatives. A total of 10 systems were reviewed and otherwise negative. Past medical history: See below Surgical history: See below Social history: See below Physical Exam: GENERAL: NAD, wearing a mask, non-toxic. EYE EXAM: Normal conjunctiva. PERRL, no anisocoria and EOM's grossly intact w/o pain. Left eye blindness. NECK: Supple, no nuchal rigidity, no adenopathy, non-tender. No signs of meningismus. LUNGS: Clear to auscultation. Normal chest wall mechanics. HEART: NSR, no MRG. ABDOMEN: Abdomen soft, non-tender, normo-active bowel sounds, no masses, no rebound or guarding. BACK: No CVA TTP. SKIN: No rashes and no bruising. UPPER EXTREMITIES: Upper extremities are grossly normal. LOWER EXTREMITIES: Grossly normal, no edema. NEURO EXAM: A&O x3, cranial nerves II-XII grossly intact, normal speech, moves all 4 extremities. Differential diagnoses: Infection, dehydration, metabolic abnormality, hypo/hyperglycemia, electrolyte disturbance, anemia, hypoxia, cardiac sources, intracerebral event, toxicologic, neurologic, as well as other pathologies. Course: Patient was seen and evaluated the bedside. Full history physical exam was performed. EKG interpreted by me Sinus bradycardia with first-degree AV block, rate of 51, WI 250, normal QRS, normal axis, T wave inversion in lead III not in contiguous leads. No ST changes. Imaging Studies: See Below Cardiac monitoring: An order was placed for continuous cardiac monitoring. The monitor shows a rate of 62 with sinus rhythm. MDM: Patient was seen due to concern for vomiting. Patient has a white count of 12 with very mild hemoglobin of 11. Platelet count is unremarkable. Patient does have hyponatremia which is new compared to prior. Urine electrolytes and osmola lity ordered. The patient and family member would prefer to have the patient in hospital as opposed to home given the patient's acute hyponatremia. Covid test was positive. Given this the patient had been admitted to the Covid unit. Past Med/Surg History Medical History (Updated 01/23/21 @ 16:12 by Ari Khalil MD) Carotid artery disease Cerebrovascular disease TIA RUE weakness 02/23/20 Coronary artery disease Do not resuscitate status Per pt's advance directives. 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 Brunner Status post coronary artery stent placement Family History Mother Heart disease Father Myocardial infarction Sister Cancer ? GI Other Diabetes Hypertension Social History Smoking Status: Former smoker Second Hand Exposure: No; Do You Dip or Chew Tobacco: No; Tobacco Cessation Education Requested by Patient: No Hx Alcohol Use: No Hx Substance Use: No Preferred Language: Trinidadian Communication Ability: Effective Solar Technician Required: No Beliefs That Will Affect Care: None marital status: / Current Living Situation: Alone Current Living Situation Comment: Help from daughter current occupational status: retired How many Children do You have: 2 Other Information That Helps Us Care for You: No Feels Safe at Home: Yes Safety Concerns: Feels Safe At This Time Assistive Devices: Cane Allergies Allergies Allergy/AdvReac Type Severity Reaction Status Date / Time No Known Allergies Allergy Unknown Verified 01/23/21 11:29 Home Meds Home Medications Medication Instructions Recorded Confirmed atorvastatin 80 mg tablet 80 mg PO QAM 06/09/18 01/23/21 metoprolol succinate 25 mg 12.5 mg PO DAILY 06/09/18 01/23/21 tablet,extended release 24 hr (Toprol XL) nitroglycerin 0.4 mg sublingual 0.4 mg SUBLINGUAL DIRECTED PRN 06/09/18 01/23/21 tablet (Nitrostat) multivitamin 1 tab PO DAILY 02/23/20 01/23/21 doxycycline hyclate 100 mg capsule 100 mg PO BID 01/23/21 01/23/21 (Vibramycin) Previous Rx's Medication Instructions Recorded clopidogrel 75 mg tablet 75 mg PO DAILY #30 tab 02/25/20 lisinopril 10 mg tablet 10 mg PO DAILY #30 tab 02/25/20 pantoprazole 40 mg tablet,delayed 40 mg PO DAILY #30 tab 02/25/20 release Results & Data (ED) Vital Signs Vital Signs - 24 hr 01/23/21 09:00 01/23/21 09:06 01/23/21 10:52 Temperature 36.7 C Temperature Source Temporal Artery Scan Pulse Rate 63 51 L Pulse Rate [Left] 59 L Pulse Rate from SpO2 Sensor 52 L Pulse Rhythm Regular Pulse Rhythm [Left] Regular Pulse Strength Normal Pulse Strength [Left] Normal Respiratory Rate 20 20 Respiratory Effort / Characteristics Non-Labored Spontaneous Non-Labored Respiratory Depth Normal Normal Respiratory Pattern Regular Regular Blood Pressure 116/72 Blood Pressure [Left Arm] 129/77 Blood Pressure Mean 86 Blood Pressure Mean [Left Arm] 94 Blood Pressure Position Sitting Blood Pressure Position [Left Arm] Lying Pulse Oximetry 98 96 Oxygen Delivery Method Room Air Room Air Room Air Sepsis Recent Fever Within 48 Hours No Sepsis New/Unexplained Change in Mental Status N/A Sepsis Action Taken by Nursing No Action Required 01/23/21 10:58 01/23/21 11:00 01/23/21 11:03 Temperature Temperature Source Pulse Rate 51 L Pulse Rate [Left] Pulse Rate from SpO2 Sensor 52 L Pulse Rhythm Pulse Rhythm [Left] Pulse Strength Pulse Strength [Left] Respiratory Rate 22 Respiratory Effort / Characteristics Non-Labored Respiratory Depth Normal Respiratory Pattern Regular Blood Pressure Blood Pressure [Left Arm] Blood Pressure Mean Blood Pressure Mean [Left Arm] Blood Pressure Position Blood Pressure Position [Left Arm] Pulse Oximetry 97 96 Oxygen Delivery Method Room Air Room Air Sepsis Recent Fever Within 48 Hours Sepsis New/Unexplained Change in Mental Status Sepsis Action Taken by Nursing 01/23/21 11:30 01/23/21 12:00 01/23/21 12:29 Temperature Temperature Source Pulse Rate 52 L 53 L Pulse Rate [Left] 58 L Pulse Rate from SpO2 Sensor 52 L Pulse Rhythm Pulse Rhythm [Left] Regular Pulse Strength Pulse Strength [Left] Normal Respiratory Rate 19 24 17 Respiratory Effort / Characteristics Non-Labored Respiratory Depth Normal Respiratory Pattern Regular Blood Pressure 123/76 Blood Pressure [Left Arm] 141/75 H Blood Pressure Mean 91 Blood Pressure Mean [Left Arm] 97 Blood Pressure Position Blood Pressure Position [Left Arm] Lying Pulse Oximetry 99 97 97 Oxygen Delivery Method Room Air Room Air Room Air Sepsis Recent Fever Within 48 Hours Sepsis New/Unexplained Change in Mental Status Sepsis Action Taken by Nursing 01/23/21 12:30 Temperature Temperature Source Pulse Rate 61 Pulse Rate [Left] Pulse Rate from SpO2 Sensor Pulse Rhythm Pulse Rhythm [Left] Pulse Strength Pulse Strength [Left] Respiratory Rate 16 Respiratory Effort / Characteristics Respiratory Depth Respiratory Pattern Blood Pressure Blood Pressure [Left Arm] Blood Pressure Mean Blood Pressure Mean [Left Arm] Blood Pressure Position Blood Pressure Position [Left Arm] Pulse Oximetry 98 Oxygen Delivery Method Room Air Sepsis Recent Fever Within 48 Hours Sepsis New/Unexplained Change in Mental Status Sepsis Action Taken by Longterm Medications Current Medication List: was personally reviewed by me Laboratory Data Attestation: I reviewed the patient's lab results. Result diagrams: 01/23/21 10:32 01/23/21 10:32 Lab Results 01/23/21 01/23/21 01/23/21 Range/Units 10:32 10:32 10:32 WBC 12.80 H (4.8-10.8) K/uL RBC 3.81 L (4.7-6.1) M/uL Hgb 11.0 L (14.0-18.0) g/dL Hct 31.9 L (42-52) % MCV 83.7 (80-100) fL MCH 28.9 (25-34) pg MCHC 34.5 (32-36) g/dL RDW Std Deviation 46.1 (36.4-46.3) fL RDW Coeff of Roderick 15.0 H (11.5-14.5) % Plt Count 353 (130-400) K/uL MPV 9.1 (7.4-10.4) fL Immature Gran % (Auto) 0.3 % Neut % (Auto) 85.8 % Lymph % (Auto) 10.0 % Beauregard % (Auto) 2.4 % Eos % (Auto) 1.3 % Baso % (Auto) 0.2 % Neut # (Auto) 10.99 H (1.4-6.5) K/uL Lymph # (Auto) 1.28 (1.2-3.4) K/uL Beauregard # (Auto) 0.31 (0.11-0.59) K/uL Eos # (Auto) 0.16 (0-0.5) K/uL Baso # (Auto) 0.02 (0-0.2) K/uL Immature Gran # (Auto) 0.04 H (0.00-0.02) K/uL Sodium 123 L (136-145) mmol/L Potassium 4.7 (3.5-5.1) mmol/L Chloride 94 L (98-107) mmol/L Carbon Dioxide 26 (21-32) mmol/L Anion Gap 3.0 (3-11) BUN 11 (7-18) mg/dl Creatinine 1.11 (0.6-1.4) mg/dl Est Cr Clr Drug Dosing Not Reportable Est GFR ( Amer) 70.3 ml/min Est GFR (Non-Af Amer) 60.7 ml/min BUN/Creatinine Ratio 9.6 L (10-20) Glucose 114 H (70-99) mg/dl Osmolality (280-300) mOsm/kg Calcium 9.3 (8.5-10.1) mg/dl Magnesium 2.1 (1.8-2.4) mg/dl Total Bilirubin 0.8 (0.2-1) mg/dl AST 21 (15-37) U/L ALT 23 (12-78) U/L Alkaline Phosphatase 103 (45-117) U/L Total Protein 7.8 (6.4-8.2) gm/dl Albumin 3.0 L (3.4-5.0) gm/dl Globulin 4.8 H (2.5-4.0) gm/dl Albumin/Globulin Ratio 0.6 L (0.9-2) TSH 6.070 H (0.300-4.500) uIu/ml Free T4 1.06 (0.8-1.6) ng/dl COVID-19 Eval Order SARS-CoV-2 (PCR) (Negative) 01/23/21 01/23/21 01/23/21 Range/Units 10:32 12:20 12:20 WBC (4.8-10.8) K/uL RBC (4.7-6.1) M/uL Hgb (14.0-18.0) g/dL Hct (42-52) % MCV (80-100) fL MCH (25-34) pg MCHC (32-36) g/dL RDW Std Deviation (36.4-46.3) fL RDW Coeff of Roderick (11.5-14.5) % Plt Count (130-400) K/uL MPV (7.4-10.4) fL Immature Gran % (Auto) % Neut % (Auto) % Lymph % (Auto) % Beauregard % (Auto) % Eos % (Auto) % Baso % (Auto) % Neut # (Auto) (1.4-6.5) K/uL Lymph # (Auto) (1.2-3.4) K/uL Beauregard # (Auto) (0.11-0.59) K/uL Eos # (Auto) (0-0.5) K/uL Baso # (Auto) (0-0.2) K/uL Immature Gran # (Auto) (0.00-0.02) K/uL Sodium (136-145) mmol/L Potassium (3.5-5.1) mmol/L Chloride (98-107) mmol/L Carbon Dioxide (21-32) mmol/L Anion Gap (3-11) BUN (7-18) mg/dl Creatinine (0.6-1.4) mg/dl Est Cr Clr Drug Dosing Est GFR ( Amer) ml/min Est GFR (Non-Af Amer) ml/min BUN/Creatinine Ratio (10-20) Glucose (70-99) mg/dl Osmolality 269 L (280-300) mOsm/kg Calcium (8.5-10.1) mg/dl Magnesium (1.8-2.4) mg/dl Total Bilirubin (0.2-1) mg/dl AST (15-37) U/L ALT (12-78) U/L Alkaline Phosphatase (45-117) U/L Total Protein (6.4-8.2) gm/dl Albumin (3.4-5.0) gm/dl Globulin (2.5-4.0) gm/dl Albumin/Globulin Ratio (0.9-2) TSH (0.300-4.500) uIu/ml Free T4 (0.8-1.6) ng/dl COVID-19 Eval Order Covid19 at [facility] SARS-CoV-2 (PCR) POSITIVE A* (Negative) Administered Medications Discontinued Medications Sodium Chloride (Nss) 500 mls @ 999 mls/hr IV .Q31M BHARATH Stop: 01/23/21 11:30 Last Infusion: 01/23/21 13:02 Dose: 0 mls/hr Documented by: [id number] Admin: 01/23/21 12:27 Dose: 999 mls/hr Documented by: [id number] Imaging Data Radiologist's Impression: Chest X-Ray 01/23/21 09:54 XR chest 1V portable HISTORY: Shortness of breath. COMPARISON: Chest 08/27/2020. FINDINGS: No pneumothorax. No pleural effusions. The heart is stable in size. There is chronic interstitial thickening at the left lung base. No new focal lung consolidations. No evidence for pulmonary edema. 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 IMPRESSION: No significant change compared to the prior study. No acute process. ACT 112: Negative or not required by law. Electronically signed by: Gildardo Alves M.D. 01/23/2021 10:[address] 01/23/21 10:[address] DOSE: 614.27 mGy.cm HISTORY: vomiting TECHNIQUE: Multiaxial CT images of the head were performed without the use of intravenous contrast. Automated exposure control was utilized for this study. A dose lowering technique was utilized adhering to the principles of ALARA. Comparison: Head CT 02/23/2020. Findings: The paranasal sinuses and mastoid air cells are clear. The calvarium and skull base are intact. There is no mass, hematoma, midline shift, acute infarct. White matter hypodensity is nonspecific but suggestive of microvascular ischemic change. The ventricles and sulci demonstrate mild age-related involutional changes. Old small right frontal lobe infarct, unchanged. Impression: No significant change compared to the prior study. No acute intracranial abnormality. ACT 112: Negative or not required by law. Electronically signed by: Gildardo Alves M.D. 01/23/2021 11:32 AM Discharge Plan Visit Data Chief Complaint: Shortness of Breath/Dyspnea Stated Complaint: SHORT OF BREATH,NAUSEA,VOMITING,HARD TO SWALLOW ED Provider: Ari Khalil Discharge Problem: COVID-19, Acute hyponatremia Patient Disposition: Admitted As Inpatient Discharge Instructions Interventions: ED Discharge Assessment Last Done: 01/23/21 14:25
[2021-01-23 10:44] LABS: Basophils # (auto) 0.02 K/uL (0-0.2); Basophils % (auto) 0.2 %; Eosinophils # (auto) 0.16 K/uL (0-0.5); Eosinophils % (auto) 1.3 %; Hematocrit (blood only) 31.9 % (42-52); Immature Granulocytes # (auto) 0.04 K/uL (0.00-0.02); Immature Granulocytes % (auto) 0.3 %; Lymphocytes # (auto) 1.28 K/uL (1.2-3.4); Mean Corpuscular Hemoglobin 28.9 pg (25-34); Mean Corpuscular Hgb Conc 34.5 g/dL (32-36); Mean Corpuscular Volume 83.7 fL (80-100); Mean Platelet Volume 9.1 fL (7.4-10.4); Monocytes # (auto) 0.31 K/uL (0.11-0.59); Monocytes % (auto) 2.4 %; Neutrophils # (auto) 10.99 K/uL (1.4-6.5); Neutrophils % (auto) 85.8 %; Platelet Count 353 K/uL (130-400); RDW Standard Deviation 46.1 fL (36.4-46.3); Red Blood Count 3.81 M/uL (4.7-6.1)
--- NOTE | 2021-01-23 10:54 | XRay Report ---
XR chest 1V portable HISTORY: Shortness of breath. COMPARISON: Chest 08/27/2020. FINDINGS: No pneumothorax. No pleural effusions. The heart is stable in size. There is chronic inters titial thickening at the left lung base. No new focal lung consolidations. No evidence for pulmonary edema. 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 IMPRESSION: No significant change compared to the prior study. No acute process. ACT 112: Negative or not required by law. Electronically signed by: Gildardo Alves M.D. 01/23/2021 10:52 AM
[2021-01-23] MEDS ORDERED: SODIUM CHLORIDE 0.9% 500 ML IV SCH (11:00)
[2021-01-23 11:07] LABS: Alanine Aminotransferase 23 U/L (12-78); Aspartate Aminotransferase 21 U/L (15-37); BUN Creatinine Ratio 9.6 (10-20); Blood Urea Nitrogen 11 mg/dl (7-18); Calcium 9.3 mg/dl (8.5-10.1); Carbon Dioxide 26 mmol/L (21-32); Chloride 94 mmol/L (98-107); Est GFR (African American) 70.3 ml/min; Est GFR (Non-African American) 60.7 ml/min; Glucose 114 mg/dl (70-99); Magnesium 2.1 mg/dl (1.8-2.4); Potassium 4.7 mmol/L (3.5-5.1); Sodium 123 mmol/L (136-145)
[2021-01-23 11:09] LABS: Albumin Globulin Ratio 0.6 (0.9-2); Alkaline Phosphatase 103 U/L (45-117); Bilirubin,Total 0.8 mg/dl (0.2-1); Globulin 4.8 gm/dl (2.5-4.0); Total Protein 7.8 gm/dl (6.4-8.2)
[2021-01-23 11:32] LABS: Thyroid Stimulating Hormone 6.07 uIu/ml (0.300-4.500)
--- NOTE | 2021-01-23 11:33 | CT Scan Report ---
HEAD CT NONCONTRAST CT DOSE: 614.27 mGy.cm HISTORY: vomiting TECHNIQUE: Multiaxial CT images of the head were performed without the use of intravenous contrast. A utomated exposure control was utilized for this study. A dose lowering technique was utilized adheri ng to the principles of ALARA. Comparison: Head CT 02/23/2020. Findings: The paranasal sinuses and mastoid air cells are clear. The calvarium and skull base are int act. There is no mass, hematoma, midline shift, acute infarct. White matter hypodensity is nonspecifi c but suggestive of microvascular ischemic change. The ventricles and sulci demonstrate mild age-rela ev involutional changes. Old small right frontal lobe infarct, unchanged. Impression: No significant change compared to the prior study. No acute intracranial abnormality. ACT 112: Negative or not required by law. Electronically signed by: Gildardo Alves M.D. 01/23/2021 11:32 AM
[2021-01-23 11:44] LABS: T4 Free Thyroxine 1.06 ng/dl (0.8-1.6)
[2021-01-23] MEDS ORDERED: ONDANSETRON INJ 2 MG/ML 2 ML VIAL IV PRN (13:30)
--- NOTE | 2021-01-23 13:49 | History & Physical Report ---
Date of Service January 23, 2021 Assessment & Plan (1) Hyponatremia: (2) Lyme disease: (3) History of COVID-19: Plan: HypoNa+: -Na was 123 -Serum Osm, Urine Osm and Urine Na+ pending -due to recent vomiting with decreased PO intake I suspect hypovolemic hypoNa+ -Pt is s/p 500 cc NS ----- will repeat BMP before putting starting the pt on NS maintenance fluids -BMP q4hr -pt did not appeared confused or have any neurological deficit - recent echo showed EF of 60% -PT/OT due to off balance feeling - CT head: neg Positive COVID test -no respiratory symptoms and not hypoxic -Had COVID pneumonia in 08/2020 - for now continue monitor the symptoms Nausea and vomiting: -likely 2/2 lyme disease - Zofran prn Lyme disease: -due to vomiting will start the pt on Ceftriaxone IV daily CAD s/p stent: -c/w Plavix, statin and BB HTN: -will hold Lisinopril for now due to pt being dehydrated CVA/HLD: -c/w statin Mild : -c/w BB and will be careful with fluid resuscitation Diet:cardiac DVT PPx: lovenox Code Status: DNR but okay for intubation (however does not want to be intubated for too long). POA daughter [phone] Emergency Contact:daughter [phone] (Aline Jordan) History of Present Illness Primary Care Provider: Joaquin Ramirez DO Pt is a 85 y/o M with hx of b-cell lymphoma s/p radiation, CAD s/p stent, CKD, Dementia, CVA without any residual weakness, hypertension, hyperlipidemia, Covid pneumonia in 08/2020, thoracic aortic aneurysm, left eye blindness, mild brought into the ER for vomiting (NBNB), nausea, off balance. Per daughter patient also appeared confused. Vomiting started 3 days ago, patient was diagnosed with Lyme disease 2 days ago. He was started on doxycycline yesterday and patient only took 2 tablets. At bedside patient denied nausea, abdominal pain, chest pain, shortness of breath. He stated that he feels fine and would like to go home. Per Daughter since patient had CVA he is having short-term memory problems. In the ER patient was given 500 cc of NS Allergies Allergy/AdvReac Type Severity Reaction Status Date / Time No Known Allergies Allergy Unknown Verified 01/23/21 11:29 Home Medications Medication Instructions Recorded Confirmed Type atorvastatin 80 mg tablet 80 mg PO QAM 06/09/18 01/23/21 History metoprolol succinate 25 mg 12.5 mg PO DAILY 06/09/18 01/23/21 History tablet,extended release 24 hr (Toprol XL) nitroglycerin 0.4 mg sublingual 0.4 mg SUBLINGUAL DIRECTED PRN 06/09/18 01/23/21 History tablet (Nitrostat) multivitamin 1 tab PO DAILY 02/23/20 01/23/21 History clopidogrel 75 mg tablet 75 mg PO DAILY #30 tab 02/25/20 01/23/21 Rx lisinopril 10 mg tablet 10 mg PO DAILY #30 tab 02/25/20 01/23/21 Rx pantoprazole 40 mg tablet,delayed 40 mg PO DAILY #30 tab 02/25/20 01/23/21 Rx release doxycycline hyclate 100 mg capsule 100 mg PO BID 01/23/21 01/23/21 History (Vibramycin) Past Med/Surg History Medical History (Updated 01/23/21 @ 14:01 by Michael Lainez MD) Carotid artery disease Cerebrovascular disease TIA RUE weakness 02/23/20 Coronary artery disease Do not resuscitate status Per pt's advance directives. 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 Brunner Status post coronary artery stent placement Family History Mother Heart disease Father Myocardial infarction Sister Cancer ? GI Other Diabetes Hypertension Social History Smoking Status: Former smoker Second Hand Exposure: No; Do You Dip or Chew Tobacco: No; Tobacco Cessation Education Requested by Patient: No Hx Alcohol Use: No Hx Substance Use: No Preferred Language: Mongolian Communication Ability: Effective Beaming Machine Operator Required: No Beliefs That Will Affect Care: None marital status: / Current Living Situation: Alone Current Living Situation Comment: Help from daughter current occupational status: retired How many Children do You have: 2 Other Information That Helps Us Care for You: No Feels Safe at Home: Yes Safety Concerns: Feels Safe At This Time Assistive Devices: Cane Review of Systems Review of Systems: At least 10 Review of systems were reviewed and all negative except as indicated in HPI Physical Exam Physical Exam: General:. NAD, well developed, well nourished, average body habitus HEENT:.L conjunctiva has a white film, Normal R conjunctiva Lungs:. No signs of respiratory distress, CTA, no wheezing or crackles Heart:. Normal S1, S2, no murmur Abdominal:. ND, Soft, NT, normal BS MSK:. No deformities of UE and LE, No leg edema Neuro exam: CN II-XII intact, normal motor strength Psych:. AAOx2 (not to time), normal affect Results & Data Results & Data ([facility]) Vital Signs (Past 12 Hours) Vital Signs Temp Pulse Pulse Resp BP BP Pulse Ox 01/23/21 12:29 58 L 17 141/75 H 97 01/23/21 10:58 97 01/23/21 10:52 59 L 19 129/77 98 01/23/21 09:00 36.7 C 63 20 116/72 98 Laboratory Results Short CBC 01/23/21 Range/Units 10:32 WBC 12.80 H (4.8-10.8) K/uL Hgb 11.0 L (14.0-18.0) g/dL Hct 31.9 L (42-52) % Plt Count 353 (130-400) K/uL BMP 01/23/21 10:32 Sodium 123 L Potassium 4.7 Chloride 94 L Carbon Dioxide 26 BUN 11 Creatinine 1.11 Glucose 114 H Calcium 9.3 Liver Function 01/23/21 Range/Units 10:32 Total Bilirubin 0.8 (0.2-1) mg/dl AST 21 (15-37) U/L ALT 23 (12-78) U/L Alkaline Phosphatase 103 (45-117) U/L Albumin 3.0 L (3.4-5.0) gm/dl Diagnostic Findings Chest X-Ray 01/23/21 09:54 XR chest 1V portable HISTORY: Shortness of breath. COMPARISON: Chest 08/27/2020. FINDINGS: No pneumothorax. No pleural effusions. The heart is stable in size. There is chronic interstitial thickening at the left lung base. No new focal lung consolidations. No evidence for pulmonary edema. 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 IMPRESSION: No significant change compared to the prior study. No acute process. ACT 112: Negative or not required by law. Electronically signed by: Gildardo Alves M.D. 01/23/2021 10:[address] 01/23/21 10:[address] DOSE: 614.27 mGy.cm HISTORY: vomiting TECHNIQUE: Multiaxial CT images of the head were performed without the use of i ntravenous contrast. Automated exposure control was utilized for this study. A dose lowering technique was utilized adhering to the principles of ALARA. Comparison: Head CT 02/23/2020. Findings: The paranasal sinuses and mastoid air cells are clear. The calvarium and skull base are intact. There is no mass, hematoma, midline shift, acute infarct. White matter hypodensity is nonspecific but suggestive of microvascular ischemic change. The ventricles and sulci demonstrate mild age-related involutional changes. Old small right frontal lobe infarct, unchanged. Impression: No significant change compared to the prior study. No acute intracranial abnormality. ACT 112: Negative or not required by law. Electronically signed by: Gildardo Alves M.D. 01/23/2021 11:32 AM Code Status & VTE Plan VTE Prophylaxis Plan VTE Prophylaxis will be ordered: Yes
[2021-01-23] MEDS ORDERED: NITROGLYCERIN SL 0.4 MG/TAB TAB SL PRN (15:05)
[2021-01-23] MEDS: ENOXAPARIN INJ 40 MG/0.4 ML SYR SQ SCH (16:35)
[2021-01-23] MEDS: cefTRIAXone SODIUM 2,000 MG in DEXTROSE 5% 50 ML IV SCH (16:35)
[2021-01-23 19:10] LABS: BUN Creatinine Ratio 11.1 (10-20); Calcium 8.9 mg/dl (8.5-10.1); Creatinine Clr Calc Pharmacy 52.7 ml/min; Est GFR (African American) 78.8 ml/min; Potassium 4.1 mmol/L (3.5-5.1)
--- NOTE | 2021-01-23 19:21 | Communication Note ---
Date of Service: January 23, 2021 Repeat BMP showed Na+ of 126 - up from 123 - will do NS 100cc/hr for 500 ml - repeating BMP every 4 hours
[2021-01-23] MEDS: SODIUM CHLORIDE 0.9% 500 ML IV SCH (19:37)
[2021-01-23 22:17] LABS: Appearance Urine Clear (Clear); Bilirubin Urine Negative (Negative); Blood Urine Negative (Negative); Color Urine Yellow; Glucose Urine UA Negative (Negative); Ketones Urine Negative (Negative); Leukocyte Esterase Urine Negative (Negative); Nitrite Urine Negative (Negative); Protein Urine Negative (Negative); Specific Gravity Urine 1.007 (1.000-1.030); Urobilinogen Urine Negative (Negative)
[2021-01-23 22:29] LABS: Urine Potassium 21.2 mmol/L
[2021-01-23 22:52] LABS: BUN Creatinine Ratio 13.2 (10-20); Calcium 8.5 mg/dl (8.5-10.1); Creatinine Clr Calc Pharmacy 59.1 ml/min; Est GFR (African American) 90.6 ml/min; Est GFR (Non-African American) 78.2 ml/min; Potassium 4.2 mmol/L (3.5-5.1)
[2021-01-24 03:01] LABS: BUN Creatinine Ratio 13.4 (10-20); Creatinine Clr Calc Pharmacy 53.7 ml/min; Est GFR (African American) 80.7 ml/min; Est GFR (Non-African American) 69.6 ml/min; Potassium 4.2 mmol/L (3.5-5.1)
[2021-01-24] MEDS: SODIUM CHLORIDE 0.9% 500 ML IV SCH ×2 (04:40→09:55)
[2021-01-24 07:34] LABS: Basophils # (auto) 0.02 K/uL (0-0.2); Basophils % (auto) 0.3 %; Eosinophils # (auto) 0.23 K/uL (0-0.5); Eosinophils % (auto) 3.1 %; Hematocrit (blood only) 30.1 % (42-52); Hemoglobin 10.3 g/dL (14.0-18.0); Immature Granulocytes # (auto) 0.02 K/uL (0.00-0.02); Immature Granulocytes % (auto) 0.3 %; Lymphocytes # (auto) 1.02 K/uL (1.2-3.4); Lymphocytes % (auto) 13.5 %; Mean Corpuscular Hemoglobin 28.5 pg (25-34); Mean Corpuscular Hgb Conc 34.2 g/dL (32-36); Mean Corpuscular Volume 83.1 fL (80-100); Mean Platelet Volume 9.3 fL (7.4-10.4); Monocytes # (auto) 0.42 K/uL (0.11-0.59); Monocytes % (auto) 5.6 %; Neutrophils # (auto) 5.83 K/uL (1.4-6.5); Neutrophils % (auto) 77.2 %; Platelet Count 313 K/uL (130-400); RDW Coefficient of Variation 14.6 % (11.5-14.5); RDW Standard Deviation 44.7 fL (36.4-46.3); Red Blood Count 3.62 M/uL (4.7-6.1); White Blood Count 7.54 K/uL (4.8-10.8)
[2021-01-24 07:51] LABS: Albumin Level 2.7 gm/dl (3.4-5.0); BUN Creatinine Ratio 13.1 (10-20); Est GFR (African American) 81.7 ml/min; Est GFR (Non-African American) 70.5 ml/min; Potassium 4.3 mmol/L (3.5-5.1)
[2021-01-24 07:53] LABS: Albumin Globulin Ratio 0.6 (0.9-2); Bilirubin,Total 0.7 mg/dl (0.2-1); Globulin 4.4 gm/dl (2.5-4.0); Total Protein 7.1 gm/dl (6.4-8.2)
[2021-01-24] MEDS: CLOPIDOGREL BISULFATE 75 MG TAB PO SCH (08:58)
[2021-01-24] MEDS: MULTIVITAMIN TAB PO SCH (08:58)
[2021-01-24] MEDS: METOPROLOL SUCC 25MG EXT REL TAB PO SCH (08:58)
[2021-01-24] MEDS: ATORVASTATIN 40 MG TAB PO SCH (08:58)
[2021-01-24] MEDS: PANTOprazole 40 MG TAB PO SCH (08:58)
--- NOTE | 2021-01-24 09:43 | Electrocardiogram Report ---
Test Reason : Blood Pressure : / mmHG Vent. Rate : 058 BPM Atrial Rate : 058 BPM P-R Int : 240 ms QRS Dur : 104 ms QT Int : 408 ms P-R-T Axes : 060 -27 045 degrees QTc Int : 400 ms Sinus bradycardia with sinus arrhythmia with 1st degree A-V block Left ventricular hypertrophy Cannot rule out Septal infarct , age undetermined Abnormal ECG When compared with ECG of 24-AUG-2020 22:10, Premature atrial complexes are no longer Present Minimal criteria for Septal infarct are now Present Confirmed by Aniceto Rueda ([id number]) on 01/24/2021 9:43:09 AM Referred By: REFERRED SELF Confirmed By:Aniceto Rueda
--- NOTE | 2021-01-24 09:45 | Hospitalist Progress Note ---
Date of Service January 24, 2021 Assessment & Plan (1) Hyponatremia: Plan: Initial sodium was 123 and this has improved appropriately to 127 and 24 hours. Normal saline was stopped as patient is currently tolerating p.o. at this point. Likely etiology hypovolemic hyponatremia secondary to several days of nausea and vomiting. (2) Lyme disease: Plan: Recently diagnosed and started on doxycycline as outpatient. As a result of vomiting doxycycline was transition to IV ceftriaxone. Outpatient records currently not available. (3) COVID-19: Plan: Patient is testing positive for COVID-19 with a prior history of infection back in August. As this has been greater than 90 days since last known infection, may possibly represent reinfection. Currently the patient is oxygenating well on room air and does not qualify for any treatments at this time. Continue to monitor in the Covid unit on isolation. (4) Coronary artery disease: Plan: Continue medical management including atorvastatin, Plavix, Toprol-XL. Lisinopril was put on hold in setting of recent vomiting but will be restarted. (5) DVT prophylaxis: Plan: Lovenox Conditional code where CPR is not desired, however, mechanical ventilation is okay Disposition-continue hospital stay pending improvement in sodium and p.o. intake. Sade Clark [facility] and Anticipated Discharge Date Admission Date: January 23, 2021 Subjective 85-year-old man with B-cell lymphoma status post radiation, CAD and dementia presented to the ER with vomiting. He was also more confused per daughter. Although patient denies vomiting or nausea at this time he also has a history of dementia and is uncertain where he is or why. Review of systems is therefore unreliable. Although he does look comfortable and just ate his dinner. He reported sometimes food feels like it gets stuck and this has been going on for 3 to 4 years. He does not have any issues with liquid. He currently does not feel that food is stuck in his chest at this time. He was recently started on doxycycline for a diagnosis of Lyme disease. He also tested positive for Covid with a history of Covid in August. Currently oxygenating well on room air and no respiratory symptoms. Overnight he was treated with intravenous normal saline and his sodium went from 1 23-1 27 this morning. Normal saline was stopped as patient is tolerating p.o. Review of Systems Review of Systems: All systems were reviewed and negative except as indicated in HPI above, however, patient is unreliable historian secondary to dementia. Physical Exam Physical Exam: CONSTITUTIONAL: WNWD, vitals as above, generally well- appearing, NAD EYES: normal conjunctivae, no scleral icterus ENT: external ear and nose normal, MMM NECK: trachea midline RESPIRATORY: clear to auscultation bilaterally, no crackles, rales or wheezes, normal respiratory effort CARDIOVASCULAR: regular rate and rhythm, S1 and 2 heard without murmurs, gallops or rubs, no JVD, no peripheral edema CHEST: inspection of chest was normal GASTROINTESTINAL: soft, nontender, ND, no guarding MUSCULOSKELETAL: strength 5/5 throughout, head is normocephalic and atraumatic SKIN: warm and dry NEUROLOGIC: CN 2-12 grossly intact, normal cognition, normal speech, no tremor PSYCHIATRIC: alert cooperative and not oriented to time, place or why he is here. Poor memory Results & Data Results & Data ([facility]) Vital Signs (Past 12 Hours) Vital Signs Temp Pulse Resp BP Pulse Ox 01/24/21 07:26 36.5 C 61 24 161/79 H 94 01/24/21 04:28 36.5 C 53 L 24 162/86 H 95 01/23/21 22:57 58 L 173/74 H 99 01/23/21 22:51 36.8 C 22 Laboratory Results Short CBC 01/23/21 01/24/21 Range/Units 10:32 06:07 WBC 12.80 H 7.54 (4.8-10.8) K/uL Hgb 11.0 L 10.3 L (14.0-18.0) g/dL Hct 31.9 L 30.1 L (42-52) % Plt Count 353 313 (130-400) K/uL BMP 01/23/21 01/23/21 01/23/21 10:32 18:30 22:19 Sodium 123 L 126 L 127 L Potassium 4.7 4.1 4.2 Chloride 94 L 96 L 98 Carbon Dioxide 26 25 23 BUN 11 11 12 Creatinine 1.11 1.01 0.90 Glucose 114 H 100 H 99 Calcium 9.3 8.9 8.5 01/24/21 01/24/21 02:12 06:07 Sodium 127 L 127 L Potassium 4.2 4.3 Chloride 98 98 Carbon Dioxide 26 25 BUN 13 13 Creatinine 0.99 0.98 Glucose 101 H 91 Calcium 9.0 9.0 Liver Function 01/23/21 01/24/21 Range/Units 10:32 06:07 Total Bilirubin 0.8 0.7 (0.2-1) mg/dl AST 21 22 (15-37) U/L ALT 23 21 (12-78) U/L Alkaline Phosphatase 103 97 (45-117) U/L Albumin 3.0 L 2.7 L (3.4-5.0) gm/dl Urine 01/23/21 Range/Units 22:00 Urine Color Yellow Urine Appearance Clear (Clear) Urine pH 7.0 (4.5-7.5) Ur Specific [place] 1.007 (1.000-1.030) Urine Protein Negative (Negative) Urine Glucose (UA) Negative (Negative) Medications Administered Current Inpatient Medications Atorvastatin Calcium (Atorvastatin 40 Mg Tab) 80 mg PO QAM [facility] Stop: 02/23/21 08:59 Last Admin: 01/24/21 08:58 Dose: 80 mg Documented by: Clopidogrel Bisulfate (Clopidogrel Bisulfate 75 Mg Tab) 75 mg PO DAILY [facility] Stop: 02/23/21 08:59 Last Admin: 01/24/21 08:58 Dose: 75 mg Documented by: Enoxaparin Sodium (Enoxaparin Inj 40 Mg/0.4 Ml Syr) 40 mg SQ Q24H [facility] Stop: 02/22/21 15:59 Last Admin: 01/23/21 16:35 Dose: 40 mg Documented by: Ceftriaxone Sodium 2,000 mg/ (Dextrose) 70 mls @ 100 mls/hr IV Q24H [facility]; Protocol Stop: 02/02/21 15:59 Last Infusion: 01/23/21 17:28 Dose: Infused Documented by: Metoprolol Succinate (Metoprolol Succ 25mg Ext Rel Tab) 12.5 mg PO DAILY [facility] Stop: 02/23/21 08:59 Last Admin: 01/24/21 08:58 Dose: 12.5 mg Documented by: Multivitamins (Multivitamin Tab) 1 tab PO DAILY [facility] Stop: 02/23/21 08:59 Last Admin: 01/24/21 08:58 Dose: 1 tab Documented by: Nitroglycerin (Nitroglycerin Sl 0.4 Mg/Tab Tab) 0.4 mg SL UD PRN PRN Reason: Chest Pain Stop: 02/22/21 15:04 Ondansetron HCl (Ondansetron Inj 2 Mg/Ml 2 Ml Vial) 4 mg IV Q4H PRN PRN Reason: Nausea Stop: 02/22/21 13:29 Pantoprazole Sodium (Pantoprazole 40 Mg Tab) 40 mg PO DAILY [facility] Stop: 02/23/21 08:59 Last Admin: 01/24/21 08:58 Dose: 40 mg Documented by:
[2021-01-24 10:45] LABS: BUN Creatinine Ratio 13.4 (10-20); Calcium 9.1 mg/dl (8.5-10.1); Creatinine Clr Calc Pharmacy 52.9 ml/min; Est GFR (African American) 79.7 ml/min; Est GFR (Non-African American) 68.8 ml/min; Potassium 4.3 mmol/L (3.5-5.1)
[2021-01-24 15:51] LABS: BUN Creatinine Ratio 11.8 (10-20); Calcium 8.9 mg/dl (8.5-10.1); Creatinine Clr Calc Pharmacy 47.2 ml/min; Est GFR (African American) 69.5 ml/min; Potassium 4.4 mmol/L (3.5-5.1)
[2021-01-24] MEDS: cefTRIAXone SODIUM 2,000 MG in DEXTROSE 5% 50 ML IV SCH (17:25)
[2021-01-24] MEDS: ENOXAPARIN INJ 40 MG/0.4 ML SYR SQ SCH (17:25)
[2021-01-25 06:33] LABS: Hematocrit (blood only) 31.4 % (42-52); Hemoglobin 10.8 g/dL (14.0-18.0); Mean Corpuscular Hemoglobin 28.3 pg (25-34); Mean Corpuscular Hgb Conc 34.4 g/dL (32-36); Mean Corpuscular Volume 82.4 fL (80-100); Mean Platelet Volume 8.9 fL (7.4-10.4); Platelet Count 338 K/uL (130-400); RDW Coefficient of Variation 14.6 % (11.5-14.5); RDW Standard Deviation 43.6 fL (36.4-46.3); Red Blood Count 3.81 M/uL (4.7-6.1); White Blood Count 8.26 K/uL (4.8-10.8)
[2021-01-25 06:56] LABS: BUN Creatinine Ratio 11.7 (10-20); C Reactive Protein 1.15 mg/dl (0-0.29); Calcium 8.9 mg/dl (8.5-10.1); Creatinine Clr Calc Pharmacy 52.8 ml/min; Est GFR (African American) 81.7 ml/min; Est GFR (Non-African American) 70.5 ml/min; Magnesium 2.1 mg/dl (1.8-2.4); Potassium 4.3 mmol/L (3.5-5.1)
[2021-01-25] MEDS: PANTOprazole 40 MG TAB PO SCH (08:17)
[2021-01-25] MEDS: MULTIVITAMIN TAB PO SCH (08:17)
[2021-01-25] MEDS: METOPROLOL SUCC 25MG EXT REL TAB PO SCH (08:17)
[2021-01-25] MEDS: ATORVASTATIN 40 MG TAB PO SCH (08:18)
[2021-01-25] MEDS: CLOPIDOGREL BISULFATE 75 MG TAB PO SCH (08:18)
[2021-01-25] MEDS: lisinopril 10 MG TAB PO SCH (08:18)
[2021-01-25] MEDS ORDERED: SODIUM CHLORIDE 0.9% 1000ML 1,000 ML IV SCH (08:30)
[2021-01-25 12:32] LABS: Calcium 8.8 mg/dl (8.5-10.1); Creatinine Clr Calc Pharmacy 49.7 ml/min; Est GFR (African American) 76.1 ml/min; Est GFR (Non-African American) 65.6 ml/min; Potassium 4.4 mmol/L (3.5-5.1)
[2021-01-25] MEDS: UREA (UREA-NA) 15 GM PACK PO SCH ×2 (12:59→21:15)
[2021-01-25] MEDS: FUROSEMIDE 20 MG in SYRINGE 0 ML IV SCH ×2 (13:02→16:16)
--- NOTE | 2021-01-25 13:32 | Hospitalist Progress Note ---
Date of Service January 25, 2021 Assessment & Plan (1) Hyponatremia: Plan: Likely etiology hypovolemic hyponatremia secondary to several days of nausea and vomiting. Intitially improved with IVF and then decreased. Consult nephro. (2) Lyme disease: Plan: Recently diagnosed and started on doxycycline as outpatient. As a result of vomiting doxycycline was transition to IV ceftriaxone. Outpatient records currently not available. Will transition him back to doxycycline now. (3) COVID-19: Plan: Patient is testing positive for COVID-19 with a prior history of infection back in August. As this has been greater than 90 days since last known infection, may possibly represent reinfection. Currently the patient is oxygenating well on room air and does not qualify for any treatments at this time. Continue to monitor in the Covid unit on isolation. (4) Coronary artery disease: Plan: Continue medical management including atorvastatin, Plavix, Toprol-XL. Lisinopril was put on hold in setting of recent vomiting but will be restarted. (5) DVT prophylaxis: Plan: Lovenox Conditional code where CPR is not desired, however, mechanical ventilation is okay Disposition-continue hospital stay pending improvement in sodium and p.o. intake. Sade Clark DO [facility] Hospitalist Admission and Anticipated Discharge Date Admission Date: January 23, 2021 Subjective 85-year-old man with B-cell lymphoma status post radiation, CAD and dementia presented to the ER with vomiting. He was also more confused per daughter. Pt is well appearing today and is eating well for bfast and lunch per nurse. He is on a fluid restriction 2/2 low sodium. He remains oriented to self which appears to be his baseline. Review of Systems Review of Systems: All systems were reviewed and negative, however, history is unreliable 2/2 dementia. Physical Exam Physical Exam: CONSTITUTIONAL: WNWD, vitals as above, generally well- appearing, NAD EYES: normal conjunctivae, no scleral icterus ENT: external ear and nose normal, MMM NECK: trachea midline RESPIRATORY: clear to auscultation bilaterally, no crackles, rales or wheezes, normal respiratory effort CARDIOVASCULAR: regular rate and rhythm, S1 and 2 heard without murmurs, gallops or rubs, no JVD, no peripheral edema CHEST: inspection of chest was normal GASTROINTESTINAL: soft, nontender, ND, no guarding MUSCULOSKELETAL: strength 5/5 throughout, head is normocephalic and atraumatic SKIN: warm and dry NEUROLOGIC: CN 2-12 grossly intact, normal cognition, normal speech, no tremor PSYCHIATRIC: alert cooperative and not oriented to time, place or why he is here. Poor memory Results & Data Results & Data ([facility]) Vital Signs (Past 12 Hours) Vital Signs Temp Pulse Pulse Resp BP Pulse Ox 01/25/21 11:51 36.4 C L 71 18 128/67 95 01/25/21 07:24 36.6 C 60 18 187/88 H 97 01/25/21 07:00 65 01/25/21 03:15 36.5 C 55 L 18 164/97 H 98 Laboratory Results Short CBC 01/25/21 Range/Units 06:08 WBC 8.26 (4.8-10.8) K/uL Hgb 10.8 L (14.0-18.0) g/dL Hct 31.4 L (42-52) % Plt Count 338 (130-400) K/uL BMP 01/24/21 01/25/21 01/25/21 15:07 06:08 11:57 Sodium 128 L 126 L 126 L Potassium 4.4 4.3 4.4 Chloride 97 L 96 L 95 L Carbon Dioxide 23 22 24 BUN 13 12 13 Creatinine 1.12 0.98 1.04 Glucose 124 H 108 H 106 H Calcium 8.9 8.9 8.8 Medications Administered Current Inpatient Medications Atorvastatin Calcium (Atorvastatin 40 Mg Tab) 80 mg PO QAM [facility] Stop: 02/23/21 08:59 Last Admin: 01/25/21 08:18 Dose: 80 mg Documented by: Clopidogrel Bisulfate (Clopidogrel Bisulfate 75 Mg Tab) 75 mg PO DAILY [facility] Stop: 02/23/21 08:59 Last Admin: 01/25/21 08:18 Dose: 75 mg Documented by: Enoxaparin Sodium (Enoxaparin Inj 40 Mg/0.4 Ml Syr) 40 mg SQ Q24H [facility] Stop: 02/22/21 15:59 Last Admin: 01/24/21 17:25 Dose: 40 mg Documented by: Ceftriaxone Sodium 2,000 mg/ (Dextrose) 70 mls @ 100 mls/hr IV Q24H [facility]; Protocol Stop: 02/02/21 15:59 Last Infusion: 01/24/21 18:36 Dose: Infused Documented by: Sodium Chloride (Nss 1000ml) 1,000 mls @ 75 mls/hr IV .[id number] [facility] Stop: 01/25/21 19:55 Last Admin: 01/25/21 08:30 Dose: 125 mls/hr Documented by: Furosemide 20 mg/ Syringe 2 mls @ 4 mls/min IV [id number] [facility] Stop: 02/24/21 11:29 Last Admin: 01/25/21 13:02 Dose: 4 mls/min Documented by: Lisinopril (Lisinopril 10 Mg Tab) 10 mg PO DAILY [facility] Stop: 02/24/21 08:59 Last Admin: 01/25/21 08:18 Dose: 10 mg Documented by: Metoprolol Succinate (Metoprolol Succ 25mg Ext Rel Tab) 12.5 mg PO DAILY [facility] Stop: 02/23/21 08:59 Last Admin: 01/25/21 08:17 Dose: 12.5 mg Documented by: Multivitamins (Multivitamin Tab) 1 tab PO DAILY [facility] Stop: 02/23/21 08:59 Last Admin: 01/25/21 08:17 Dose: 1 tab Documented by: Nitroglycerin (Nitroglycerin Sl 0.4 Mg/Tab Tab) 0.4 mg SL UD PRN PRN Reason: Chest Pain Stop: 02/22/21 15:04 Ondansetron HCl (Ondansetron Inj 2 Mg/Ml 2 Ml Vial) 4 mg IV Q4H PRN PRN Reason: Nausea Stop: 02/22/21 13:29 Pantoprazole Sodium (Pantoprazole 40 Mg Tab) 40 mg PO DAILY [facility] Stop: 02/23/21 08:59 Last Admin: 01/25/21 08:17 Dose: 40 mg Documented by: Urea (Urea (Urea-Na) 15 Gm Pack) 15 gm PO BID [facility] Stop: 02/24/21 11:29 Last Admin: 01/25/21 12:59 Dose: 15 gm Documented by:
[2021-01-25 14:59] LABS: Creatinine Urine Random 82.7 mg/dl
[2021-01-25] MEDS: cefTRIAXone SODIUM 2,000 MG in DEXTROSE 5% 50 ML IV SCH (15:59)
--- NOTE | 2021-01-25 16:10 | Electrocardiogram Report ---
Test Reason : Blood Pressure : / mmHG Vent. Rate : 051 BPM Atrial Rate : 051 BPM P-R Int : 254 ms QRS Dur : 108 ms QT Int : 428 ms P-R-T Axes : 046 -18 017 degrees QTc Int : 394 ms Sinus bradycardia with 1st degree A-V block Minimal voltage criteria for LVH, may be normal variant Borderline ECG When compared with ECG of 23-JAN-2021 10:19, Minimal criteria for Septal infarct are no longer Present Confirmed by Abhilash Dang ([id number]) on 01/25/2021 4:10:04 PM Referred By: REFERRED SELF Confirmed By:Abhilash Dang
[2021-01-25] MEDS: ENOXAPARIN INJ 40 MG/0.4 ML SYR SQ SCH (16:15)
--- NOTE | 2021-01-25 19:53 | Consultation Report ---
NEPHROLOGY CONSULTATION NOTE DATE OF SERVICE: 01/25/2021 REASON FOR CONSULTATION: Hyponatremia. HISTORY OF PRESENT ILLNESS: The patient is an 85-year-old male with history of B-cell lymphoma, stat us post radiation, coronary artery disease, status post stent, CKD stage III, dementia, history of st roke and multiple other medical problems including COVID pneumonia in 08/2020, who was brought to the Emergency Department 2 days ago with chief complaints of nausea, vomiting and unsteadiness. As per the daughter, the patient also was more confused than usual. He was also recently started with Lyme disease and was started on doxycycline prior to hospitalization. At this time, the patient has low s odium and really has not changed much in the last 2 days, serum sodium was 123 on admission and 2 day s later still only 126. Back in 08/2020, his sodium was normal at 139. Kidney function is normal. Alejandro steele is currently getting IV fluid 125 mL per hour of normal saline. His blood pressure is high. He is not in any respiratory distress. Blood and urine test showed so far urine osmolality of 276, urine sodium 78. Urine specific gravity was on the low side at 1.007. The patient is fairly euvolemic at this time. He does appear to be confused, but does not seem as acute, but more of underlying dementi a with some hospital-induced confusion. He is making urine. As per the input/output charting, he mad e 1650 mL of urine yesterday in a 24-hour time period. He does not appear to be on any medication at home known to cause hyponatremia. MEDICATIONS: Home medication list was reviewed and is as per the reconciliation list. ALLERGIES: None. PAST MEDICAL HISTORY: Includes carotid artery disease, history of stroke with right upper extremity weakness, dyslipidemia, gangrenous cholecystitis, GERD, history of cholelithiasis, history of COVID-1 9 pneumonia in 08/2020, hypertension, low-grade B-cell lymphoma, thoracic aortic aneurysm, vision los s in the left eye. PAST SURGICAL HISTORY: Includes cholecystectomy, status post coronary artery stent placement. FAMILY HISTORY: Negative for renal disease. SOCIAL HISTORY: Former smoker. He lives alone. He is a and he does get a lot of help from his daughter. He is retired. He uses cane for ambulation. REVIEW OF SYSTEMS: Unable to obtain as the patient seems quite confused and really could not tell me anything about what has been happening. PHYSICAL EXAMINATION: GENERAL: Elderly white male who actually appears physically well-built, well-nourished, does not will ear to be in any respiratory distress at all. VITAL SIGNS: Blood pressure is 187/88, pulse rate 60, temperature 36.6, 97% on room air. HEENT: Mucous membrane is moist. NECK: Supple. No jugular venous distention. CHEST: Bilaterally clear to auscultation. CARDIOVASCULAR: S1 and S2, regular. ABDOMEN: Soft, nontender. EXTREMITIES: Show no edema. LABORATORY TEST: Shows serum sodium was 123 two days ago at the time of admission, this morning is s till 126. Hemoglobin 10.8, WBC count 8.26, platelet count 338. Urine osmolality 276. Urine sodium 78. Serum osmolarity 269. Chest x-ray does not show any congestive heart failure. ASSESSMENT AND PLAN: An 85-year-old male admitted 2 days ago with increasing confusion. I have been consulted for hyponatremia. Hyponatremia: This appears to be new onset. Back in 08/2020 when he was admitted with COVID pneumoni a, serum sodium was normal. At this time, he appears euvolemic to very slightly hypervolemic. Blood pressure is running quite high and his kidney function is completely normal, so this cannot be hypov olemic hyponatremia. 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 He is not on a ny medication known to cause hyponatremia. RECOMMENDATIONS: 1. Decrease normal saline to 75 mL per hour. 2. Lasix 20 mg IV b.i.d. to cause free water diuresis. This in combination with normal saline shoul d increase the serum sodium. 3. Urea 15 g b.i.d. 4. Fluid restriction to 1500 mL per day. 5. At this point, we can do BMP twice daily as it has been in a fairly tight range for the last 2 da ys. 6. The hyponatremia may have contributed marginally to the confusion, but I believe the confusion is mostly related with underlying dementia and some worsening with acute illness as well as hospitaliza tion. 7. We will continue to follow. Thank you very much for the consult. Job ID: [id number]
[2021-01-25 23:57] LABS: BUN Creatinine Ratio 28.1 (10-20); Calcium 8.9 mg/dl (8.5-10.1); Creatinine Clr Calc Pharmacy 45.8 ml/min; Est GFR (African American) 68.8 ml/min; Est GFR (Non-African American) 59.4 ml/min; Potassium 3.9 mmol/L (3.5-5.1)
[2021-01-26] MEDS: lisinopril 10 MG TAB PO SCH (08:02)
[2021-01-26] MEDS: METOPROLOL SUCC 25MG EXT REL TAB PO SCH (08:02)
[2021-01-26] MEDS: FUROSEMIDE 20 MG in SYRINGE 0 ML IV SCH ×2 (08:02→17:38)
[2021-01-26] MEDS: PANTOprazole 40 MG TAB PO SCH (08:03)
[2021-01-26] MEDS: MULTIVITAMIN TAB PO SCH (08:03)
[2021-01-26] MEDS: CLOPIDOGREL BISULFATE 75 MG TAB PO SCH (08:03)
[2021-01-26] MEDS: UREA (UREA-NA) 15 GM PACK PO SCH ×3 (08:03→19:34)
[2021-01-26] MEDS: ATORVASTATIN 40 MG TAB PO SCH (08:03)
--- NOTE | 2021-01-26 08:52 | XRay Report ---
XR chest 1V portable CLINICAL HISTORY: recent unresponsive episode TECHNIQUE: Single frontal radiograph of the chest was obtained. Comparison: None available at the time of this dictation. FINDINGS: No lines and tubes are seen. The cardiomediastinal silhouette is normal. The lungs are clear. No evid ence of pleural effusion or pneumothorax. IMPRESSION: No acute chest disease. ACT 112: Negative or not required by law. Electronically signed by: Alejo Mix M.D. 01/26/2021 8:51 AM
[2021-01-26 09:18] LABS: Basophils # (auto) 0.01 K/uL (0-0.2); Basophils % (auto) 0.1 %; Eosinophils # (auto) 0.13 K/uL (0-0.5); Eosinophils % (auto) 1.5 %; Hematocrit (blood only) 32.9 % (42-52); Hemoglobin 11.4 g/dL (14.0-18.0); Immature Granulocytes # (auto) 0.03 K/uL (0.00-0.02); Immature Granulocytes % (auto) 0.4 %; Lymphocytes # (auto) 1.16 K/uL (1.2-3.4); Lymphocytes % (auto) 13.7 %; Mean Corpuscular Hemoglobin 28.7 pg (25-34); Mean Corpuscular Volume 82.9 fL (80-100); Mean Platelet Volume 9.4 fL (7.4-10.4); Monocytes # (auto) 0.76 K/uL (0.11-0.59); Neutrophils # (auto) 6.36 K/uL (1.4-6.5); Neutrophils % (auto) 75.3 %; Platelet Count 356 K/uL (130-400); RDW Coefficient of Variation 14.6 % (11.5-14.5); RDW Standard Deviation 44.5 fL (36.4-46.3); Red Blood Count 3.97 M/uL (4.7-6.1); White Blood Count 8.45 K/uL (4.8-10.8)
[2021-01-26 09:19] LABS: Base Excess ABG -0.7 mEq/L (-9-1.8); HCO3 ABG 23 mmol/L (19-24); Oxygen Saturation ABG 97.6 % (90-95); PCO2 ABG 33 mmHg (35-46); PO2 ABG 95 mmHg (80-95); pH ABG 7.45 (7.35-7.45)
[2021-01-26 09:20] LABS: Allen Test Pos (Pos)
[2021-01-26 09:29] LABS: Mean Corpuscular Hgb Conc 34.7 g/dL (32-36)
[2021-01-26 09:38] LABS: Blood Urea Nitrogen 32 mg/dl (7-18); Calcium 9.2 mg/dl (8.5-10.1); Carbon Dioxide 25 mmol/L (21-32); Chloride 93 mmol/L (98-107); Creatinine Clr Calc Pharmacy 43.5 ml/min; Est GFR (Non-African American) 56.9 ml/min; Glucose 115 mg/dl (70-99); Magnesium 2.2 mg/dl (1.8-2.4); Potassium 3.8 mmol/L (3.5-5.1); Sodium 127 mmol/L (136-145)
[2021-01-26 09:43] LABS: Phosphorus 4.2 mg/dl (2.5-4.9); Troponin I < 0.015 ng/ml (0-0.045)
--- NOTE | 2021-01-26 09:58 | Nephrology Progress Note ---
Date of Service January 26, 2021 Assessment & Plan Admission and Anticipated Discharge Date Admission Date: January 23, 2021 Subjective S--no new issues. PHYSICAL EXAMINATION: GENERAL: Elderly white male who actually appears physically well-built, well- nourished, does not appear to be in any respiratory distress at all. HEENT: Mucous membrane is moist. NECK: Supple. No jugular venous distention. CHEST: Bilaterally clear to auscultation. CARDIOVASCULAR: S1 and S2, regular. ABDOMEN: Soft, nontender. EXTREMITIES: Show no edema. LABORATORY TEST: Shows serum sodium was 123 two days ago at the time of admission, this morning is still 127. Hemoglobin 10.8, WBC count 8.26, platelet count 338. Urine osmolality 276. Urine sodium 78. Serum osmolarity 269. Chest x-ray does not show any congestive heart failure. ASSESSMENT AND PLAN: An 85-year-old male admitted 2 days ago with increasing confusion. I have been consulted for hyponatremia. Hyponatremia: This appears to be new onset. Back in 08/2020 when he was admitted with COVID pneumonia, serum sodium was normal. At this time, he appears euvolemic to very slightly hypervolemic. Blood pressure is running quite high and his kidney function is completely normal, so this cannot be hypovolemic hyponatremia. Based on the urine sodium, urine osmolality, euvolemic status, this is a case of syndrome of inappropriate antidiuretic ho rmone and needs to be managed accordingly. He is not on any medication known to cause hyponatremia. RECOMMENDATIONS: 1. NS--already stopped. 2. Lasix 20 mg IV b.i.d. to cause free water diuresis. 3. Urea 15 g t.i.d. 4. Fluid restriction to 1200 mL per day. 5. At this point, we can do BMP twice daily as it has been in a fairly tight range for the last 2 days. 6. Serum Sodium may not go up as expected but as long as it is more than 125 and stable we are ok. Results & Data ([facility]) Vital Signs (Past 12 Hours) Vital Signs Temp Pulse Pulse Resp BP Pulse Ox 01/26/21 07:35 36.8 C 68 19 132/78 98 01/26/21 03:01 36.4 C L 64 15 139/86 94 01/25/21 23:21 152/84 H 01/25/21 22:59 36.5 C 58 L 18 164/82 H 95 01/25/21 22:19 60
[2021-01-26] MEDS: DOXYCYCLINE HYCLATE 100 MG CAP PO SCH ×2 (10:21→19:34)
--- NOTE | 2021-01-26 11:03 | Hospitalist Progress Note ---
Date of Service January 26, 2021 Assessment & Plan (1) Hyponatremia: Plan: Recent vomiting prior to admission-? doxycycline as a cause vs other AGE which has now resolved. Sodium was not initially improved with NSS, so nephrology was consulted. 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 BMP daily. (2) Lyme disease: Plan: Recently diagnosed with Lyme during a screening for neuropathy; started on 21 day course of doxycycline as outpatient. As a result of vomiting doxycycline was transition to IV ceftriaxone. Outpatient records currently not available. Will transition him back to doxycycline now to ensure he is tolerating this prior to discharge. . (3) COVID-19: Plan: Patient is testing positive for COVID-19 with a prior history of infection back in August. As this has been greater than 90 days since last known infection, may possibly represent reinfection. Currently the patient is oxygenating well on room air and does not qualify for any treatments at this time. Continue to monitor in the Covid unit on isolation. (4) Coronary artery disease: Plan: Continue medical management including atorvastatin, Plavix, Toprol-XL and Lisinopril (5) DVT prophylaxis: Plan: Lovenox Conditional code where CPR is not desired, however, mechanical ventilation is okay Disposition-continue hospital stay pending improvement in sodium and p.o. intake. Likely placement at SNF, lives at home with daughter. Sade Clark DO [facility] Hospitalist Admission and Anticipated Discharge Date Admission Date: January 23, 2021 Subjective 85-year-old man with B-cell lymphoma status post radiation, CAD and dementia presented to the ER with vomiting. He was also more confused per daughter. Pt is well appearing today and is eating well for bfast and lunch per nurse. He is on a fluid restriction 2/2 low sodium. He remains oriented to self which appears to be his baseline. This morning a isis weir was called when he was sitting in the chair and his nurse noticed him glaze over and become unresponsive to questioning, no eliazar loss of consciousness. He was talking with the nurse at the time. Also, his HR went to 39 for a few seconds. On arrival to the bedside his heart rate had normalized and he was mentating at his baseline with n o complaints. Telemetry events reviewed and revealed no evidence of block or other arrhythmia outside of transient sinus bradycardia. Glucose was normal, sodium was 127 and renal function and electrolytes were otherwise within range of where they had been/normal. An EKG revealed no evidence of ischemia. A CXR revealed no acute process. He was noted to be very tired, not sleeping well for the past two nights per nursing. He was currently admitting to fatigue. Review of Systems Review of Systems: At least ten systems were reviewed and negative except as indicated in HPI above. Physical Exam Physical Exam: CONSTITUTIONAL: WNWD, vitals as above, generally well- appearing, NAD EYES: normal conjunctivae, no scleral icterus ENT: external ear and nose normal, MMM NECK: trachea midline RESPIRATORY: clear to auscultation bilaterally, no crackles, rales or wheezes, normal respiratory effort CARDIOVASCULAR: regular rate and rhythm, S1 and 2 heard without murmurs, gallops or rubs, no JVD, no peripheral edema CHEST: inspection of chest was normal GASTROINTESTINAL: soft, nontender, ND, no guarding MUSCULOSKELETAL: strength 5/5 throughout, head is normocephalic and atraumatic SKIN: warm and dry NEUROLOGIC: CN 2-12 grossly intact, normal cognition, normal speech, no tremor PSYCHIATRIC: alert cooperative and not oriented to time, place or why he is here. Poor memory Results & Data Results & Data ([facility]) Vital Signs (Past 12 Hours) Vital Signs Temp Pulse Resp BP Pulse Ox 01/26/21 07:35 36.8 C 68 19 132/78 98 01/26/21 03:01 36.4 C L 64 15 139/86 94 01/25/21 23:21 152/84 H Laboratory Results Short CBC 01/26/21 Range/Units 08:51 WBC 8.45 (4.8-10.8) K/uL Hgb 11.4 L (14.0-18.0) g/dL Hct 32.9 L (42-52) % Plt Count 356 (130-400) K/uL BMP 01/25/21 01/25/21 01/26/21 11:57 23:18 08:51 Sodium 126 L 126 L 127 L Potassium 4.4 3.9 3.8 Chloride 95 L 95 L 93 L Carbon Dioxide 24 23 25 BUN 13 32 H D 32 H Creatinine 1.04 1.13 1.17 Glucose 106 H 112 H 115 H Calcium 8.8 8.9 9.2 Cardiac Enzymes 01/26/21 Range/Units 08:51 Troponin I < 0.015 (0-0.045) ng/ml Diagnostic Findings Chest X-Ray 01/26/21 08:20 XR chest 1V portable CLINICAL HISTORY: recent unresponsive episode TECHNIQUE: Single frontal radiograph of the chest was obtained. Comparison: None available at the time of this dictation. FINDINGS: No lines and tubes are seen. The cardiomediastinal silhouette is normal. The lungs are clear. No evidence of pleural effusion or pneumothorax. IMPRESSION: No acute chest disease. ACT 112: Negative or not required by law. Electronically signed by: Alejo Mix M.D. 01/26/2021 8:51 AM Medications Administered Current Inpatient Medications Atorvastatin Calcium (Atorvastatin 40 Mg Tab) 80 mg PO QAM BHARATH Stop: 02/23/21 08:59 Last Admin: 01/26/21 08:03 Dose: 80 mg Documented by: Clopidogrel Bisulfate (Clopidogrel Bisulfate 75 Mg Tab) 75 mg PO DAILY BHARATH Stop: 02/23/21 08:59 Last Admin: 01/26/21 08:03 Dose: 75 mg Documented by: Doxycycline Hyclate (Doxycycline Hyclate 100 Mg Cap) 100 mg PO BID BHARATH Stop: 02/05/21 08:59 Last Admin: 01/26/21 10:21 Dose: 100 mg Documented by: Enoxaparin Sodium (Enoxaparin Inj 40 Mg/0.4 Ml Syr) 40 mg SQ Q24H BHARATH Stop: 02/22/21 15:59 Last Admin: 01/25/21 16:15 Dose: 40 mg Documented by: Furosemide 20 mg/ Syringe 2 mls @ 4 mls/min IV BID17 BHARATH Stop: 02/24/21 11:29 Last Admin: 01/26/21 08:02 Dose: 4 mls/min Documented by: Lisinopril (Lisinopril 10 Mg Tab) 10 mg PO DAILY BHARATH Stop: 02/24/21 08:59 Last Admin: 01/26/21 08:02 Dose: 10 mg Documented by: Metoprolol Succinate (Metoprolol Succ 25mg Ext Rel Tab) 12.5 mg PO DAILY BHARATH Stop: 02/23/21 08:59 Last Admin: 01/26/21 08:02 Dose: 12.5 mg Documented by: Multivitamins (Multivitamin Tab) 1 tab PO DAILY [facility] Stop: 02/23/21 08:59 Last Admin: 01/26/21 08:03 Dose: 1 tab Documented by: Nitroglycerin (Nitroglycerin Sl 0.4 Mg/Tab Tab) 0.4 mg SL UD PRN PRN Reason: Chest Pain Stop: 02/22/21 15:04 Ondansetron HCl (Ondansetron Inj 2 Mg/Ml 2 Ml Vial) 4 mg IV Q4H PRN PRN Reason: Nausea Stop: 02/22/21 13:29 Pantoprazole Sodium (Pantoprazole 40 Mg Tab) 40 mg PO DAILY [facility] Stop: 02/23/21 08:59 Last Admin: 01/26/21 08:03 Dose: 40 mg Documented by: Urea (Urea (Urea-Na) 15 Gm Pack) 15 gm PO TID [facility] Stop: 02/25/21 13:59
[2021-01-26 12:00] LABS: BUN Creatinine Ratio 27.2 (10-20); Calcium 9.4 mg/dl (8.5-10.1); Creatinine Clr Calc Pharmacy 44.7 ml/min; Est GFR (African American) 68.1 ml/min; Est GFR (Non-African American) 58.7 ml/min; Potassium 4.1 mmol/L (3.5-5.1)
[2021-01-26] MEDS: ENOXAPARIN INJ 40 MG/0.4 ML SYR SQ SCH (14:49)
[2021-01-27 00:25] LABS: BUN Creatinine Ratio 32.6 (10-20); Calcium 9.5 mg/dl (8.5-10.1); Creatinine Clr Calc Pharmacy 41.4 ml/min; Est GFR (African American) 62.1 ml/min; Est GFR (Non-African American) 53.6 ml/min
[2021-01-27] MEDS: FUROSEMIDE 20 MG in SYRINGE 0 ML IV SCH ×2 (08:10→18:31)
[2021-01-27] MEDS: PANTOprazole 40 MG TAB PO SCH (08:11)
[2021-01-27] MEDS: DOXYCYCLINE HYCLATE 100 MG CAP PO SCH ×2 (08:11→20:34)
[2021-01-27] MEDS: METOPROLOL SUCC 25MG EXT REL TAB PO SCH (08:12)
[2021-01-27] MEDS: MULTIVITAMIN TAB PO SCH (08:12)
[2021-01-27] MEDS: lisinopril 10 MG TAB PO SCH (08:12)
[2021-01-27] MEDS: CLOPIDOGREL BISULFATE 75 MG TAB PO SCH (08:13)
[2021-01-27] MEDS: ATORVASTATIN 40 MG TAB PO SCH (08:13)
[2021-01-27] MEDS: UREA (UREA-NA) 15 GM PACK PO SCH ×3 (08:13→20:35)
--- NOTE | 2021-01-27 10:38 | Nephrology Progress Note ---
Date of Service January 27, 2021 Assessment & Plan Admission and Anticipated Discharge Date Admission Date: January 23, 2021 Subjective Subjective S--no new issues this AM. Had Bradycardic episode yesterday. PHYSICAL EXAMINATION: GENERAL: Elderly white male who actually appears physically well-built, well- nourished, does not appear to be in any respiratory distress at all. HEENT: Mucous membrane is moist. NECK: Supple. No jugular venous distention. CHEST: Bilaterally clear to auscultation. CARDIOVASCULAR: S1 and S2, regular. ABDOMEN: Soft, nontender. EXTREMITIES: Show no edema. LABORATORY TEST: Shows serum sodium was 123 two days ago at the time of admission, this morning is still 129 and is in rising trend. ASSESSMENT AND PLAN: An 85-year-old male admitted 2 days ago with increasing confusion. I have been consulted for hyponatremia. Hyponatremia: This appears to be new onset. Back in 08/2020 when he was admitted with COVID pneumonia, serum sodium was normal. At this time, he appears euvolemic. 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 He is not on any medication known to cause hyponatremia. RECOMMENDATIONS: 1. NS--already stopped. 2. Lasix 20 mg IV b.i.d. to cause free water diuresis. 3. Urea 15 g t.i.d. 4. Fluid restriction to 1200 mL per day. 5. At this point, we can do BMP Once daily as it has been in a fairly tight range for the last 2 days. 6. Serum Sodium may not go up fast as desired. As long as 130+ he is stable for discharge from hyponatremia standpoint. Results & Data ([facility]) Vital Signs (Past 12 Hours) Vital Signs Temp Pulse Resp BP Pulse Ox 01/27/21 07:30 36.5 C 78 18 122/72 90 01/27/21 03:17 36.7 C 61 20 129/78 98 01/26/21 23:00 36.7 C 61 20 126/85 97
--- NOTE | 2021-01-27 13:13 | Electrocardiogram Report ---
Test Reason : Blood Pressure : / mmHG Vent. Rate : 049 BPM Atrial Rate : 049 BPM P-R Int : 240 ms QRS Dur : 106 ms QT Int : 454 ms P-R-T Axes : 023 -20 015 degrees QTc Int : 410 ms Sinus bradycardia with 1st degree A-V block Minimal voltage criteria for LVH, may be normal variant Borderline ECG When compared with ECG of 23-JAN-2021 11:40, No significant change was found Confirmed by Abhilash Dang ([id number]) on 01/27/2021 1:12:44 PM Referred By: REFERRED SELF Confirmed By:Abhilash Dang
--- NOTE | 2021-01-27 15:59 | Hospitalist Progress Note ---
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 Patient was diagnosed with Lyme disease 2 days [employer]ITE SHOE [employer]AGGER and started on doxy as an outpatient. Is being managed for the following: #. Hyponatremia: Recent vomiting prior to admission-? doxycycline as a cause vs other AGE which has now resolved. Sodium still low but rising slowly, 129 today morning Nephrology on board for management of sodium level: New diagnosis of SIADH being managed with Lasix and urea and FR 1200 mL/day. Daily BMP. Okay with discharge as long as sodium is greater than 130+ from nephrology point of view. #. Lyme disease: Recently diagnosed with Lyme during a screening for neuropathy; started on 21 day course of doxycycline as outpatient. As a result of vomiting at presentation, doxycycline was transition to IV ceftriaxone. Again transitioned him back to doxycycline to ensure he is tolerating this prior to discharge. #. COVID-19: Patient is testing positive for COVID-19 with a prior history of infection back in Aug, 2020. As this has been greater than 90 days since last known infection, may possibly represent reinfection. Currently the patient is oxygenating well on room air and does not qualify for any treatments at this time. Continue to monitor in the Covid unit on isolation. #. Hypotension: Initially borderline hypertensive/normotensive during hospital stay, few measurements of low blood pressure on 01/27 Likely secondary to Lasix on background of decreased p.o. intake. Patient given Lasix for his SIADH management. Borderline low normal, continue to monitor blood pressure Use as needed IV fluid bolus if low blood pressure persist #. Coronary artery disease: Continue medical management including atorvastatin, Plavix, Toprol-XL and Lisinopril #. DVT prophylaxis: Lovenox Conditional code where CPR is not desired, however, mechanical ventilation is okay Disposition-continue hospital stay pending improvement in sodium and p.o. intake. Likely placement at SNF, lives at home with daughter. Admission and Anticipated Discharge Date Admission Date: January 23, 2021 Subjective Patient was lying in bed, AO x1 [to place], NAD, on room air, no acute events overnight. Patient denies any headache/dizziness/shortness of breath/other review of symptoms. Physical Exam Physical Exam: GENERAL: Alert and oriented x1 (place) treatment. NAD, on RA. HEENT: No pallor, no icterus. Pupils equal, round and reactive to light. Oral mucosa moist. NECK: No JVD, no neck masses. HEART: S1 and S2 heard. Regular rate and rhythm. No murmur, no gallop. RESPIRATORY SYSTEM: Normal AP diameter. No accessory muscle use. No wheezing, no crackles. ABDOMEN: Soft, bowel sounds present, nontender, no distention. CENTRAL NERVOUS SYSTEM: Alert and oriented x3. No facial droop. Speech is clear. Obeys simple commands. Moves extremities. EXTREMITIES: No edema, no erythema seen. Results & Data Results & Data ([facility]) Vital Signs (Past 12 Hours) Vital Signs Temp Pulse Resp BP Pulse Ox 01/27/21 15:15 37.0 C 73 18 85/56 L 95 01/27/21 11:57 63 98/66 L 01/27/21 11:47 36.3 C L 67 21 79/51 L 95 01/27/21 07:30 36.5 C 78 18 122/72 90
[2021-01-27] MEDS: ENOXAPARIN INJ 40 MG/0.4 ML SYR SQ SCH (18:32)
[2021-01-28 06:42] LABS: Hematocrit (blood only) 35.7 % (42-52); Hemoglobin 12.5 g/dL (14.0-18.0); Mean Corpuscular Hemoglobin 29.1 pg (25-34); Mean Corpuscular Volume 83.2 fL (80-100); Mean Platelet Volume 9.3 fL (7.4-10.4); Platelet Count 409 K/uL (130-400); RDW Coefficient of Variation 14.8 % (11.5-14.5); Red Blood Count 4.29 M/uL (4.7-6.1); White Blood Count 9.19 K/uL (4.8-10.8)
[2021-01-28 07:09] LABS: BUN Creatinine Ratio 33.1 (10-20); Calcium 9.4 mg/dl (8.5-10.1); Creatinine Clr Calc Pharmacy 30.6 ml/min; Est GFR (African American) 42.9 ml/min; Potassium 3.9 mmol/L (3.5-5.1)
[2021-01-28] MEDS: METOPROLOL SUCC 25MG EXT REL TAB PO SCH (07:59)
[2021-01-28] MEDS: CLOPIDOGREL BISULFATE 75 MG TAB PO SCH (07:59)
[2021-01-28] MEDS: UREA (UREA-NA) 15 GM PACK PO SCH ×3 (07:59→20:04)
[2021-01-28] MEDS: PANTOprazole 40 MG TAB PO SCH (07:59)
[2021-01-28] MEDS: DOXYCYCLINE HYCLATE 100 MG CAP PO SCH ×2 (07:59→20:04)
[2021-01-28] MEDS: MULTIVITAMIN TAB PO SCH (07:59)
[2021-01-28] MEDS: ATORVASTATIN 40 MG TAB PO SCH (08:00)
[2021-01-28] MEDS: lisinopril 10 MG TAB PO SCH (08:03)
[2021-01-28] MEDS: FUROSEMIDE 20 MG in SYRINGE 0 ML IV SCH (08:03)
--- NOTE | 2021-01-28 09:53 | Nephrology Progress Note ---
Date of Service January 28, 2021 Assessment & Plan Admission and Anticipated Discharge Date Admission Date: January 23, 2021 Subjective Subjective Subjective S--no new issues this AM. Creat up a bit likely from bradycardia episode PHYSICAL EXAMINATION: GENERAL: Elderly white male who actually appears physically well-built, well- nourished, does not appear to be in any respiratory distress at all. HEENT: Mucous membrane is moist. NECK: Supple. No jugular venous distention. CHEST: Bilaterally clear to auscultation. CARDIOVASCULAR: S1 and S2, regular. ABDOMEN: Soft, nontender. EXTREMITIES: Show no edema. LABORATORY TEST: Shows serum sodium was 126. Creat up a bit. ASSESSMENT AND PLAN: An 85-year-old male admitted 2 days ago with increasing confusion. I have been consulted for hyponatremia. Hyponatremia: This appears to be new onset. Back in 08/2020 when he was admitted with COVID pneumonia, serum sodium was normal. At this time, he appears euvolemic. 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 He is not on any medication known to cause hyponatremia. RECOMMENDATIONS: 1. Stop iv Lasix but will add Lasix 20 mg po bid and salt tab 1 gm bid 3. Continue Urea 15 g t.i.d. 4. Fluid restriction to 1200 mL per day. 5. At this point, we can do BMP Once daily as it has been in a fairly tight range for the last 2 days. 6. Serum Sodium may not go up fast as desired. As long as 128+ he is stable for discharge from hyponatremia standpoint. 7 Creat up a bit today because of the Bradycardic episode yesterday--to be expected. Results & Data ([facility]) Vital Signs (Past 12 Hours) Vital Signs Temp Pulse Pulse Resp BP Pulse Ox 01/28/21 07:54 36.6 C 62 22 135/88 97 01/28/21 03:44 36.8 C 63 19 112/54 L 95 01/27/21 23:09 36.7 C 64 14 130/77 98 01/27/21 22:25 83
[2021-01-28] MEDS: SODIUM CHLORIDE 1 GM TABLET PO SCH ×2 (11:22→20:05)
--- NOTE | 2021-01-28 16:14 | Hospitalist Progress Note ---
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 Is being managed for the following: #. Hyponatremia: Recent vomiting prior to admission-? doxycycline as a cause vs other AGE which has now resolved. Sodium still low but rising slowly, 128 today morning Nephrology on board for management of sodium level: New diagnosis of SIADH being managed with Lasix and urea and FR 1200 mL/day. Daily BMP. Okay with discharge as long as sodium is greater than 128+ from nephrology point of view. Expect it to rise slowly. Discharge meds: Lasix 20 twice daily, salt tablet 1 g twice daily, urea 15 g 3 times daily, fluid restriction 1200 mL/day. #. RAMEZ over CKD: Baseline creatinine around 1.0 Creatinine up to 1.67 today, nephrology avoid, likely secondary to bradycardic episode per nephrology. BMP daily, follow-up. #. Lyme disease: Recently diagnosed with Lyme during a screening for neuropathy; started on 21 day course of doxycycline as outpatient. As a result of vomiting at presentation, doxycycline was transition to IV ceftriaxone. Again transitioned him back to doxycycline to ensure he is tolerating this prior to discharge. #. COVID-19: Patient is testing positive for COVID-19 with a prior history of infection back in Aug, 2020. As this has been greater than 90 days since last known infection, may possibly represent reinfection. Currently the patient is oxygenating well on room air and does not qualify for any treatments at this time. Continue to monitor in the Covid unit on isolation. #. Hypotension: Few low blood pressure readings on 01/27. Resolved. #. Coronary artery disease: Continue medical management including atorvastatin, Plavix, Toprol-XL and Lisinopril #. DVT prophylaxis: Lovenox Conditional code where CPR is not desired, however, mechanical ventilation is okay. Disposition-PT recommending rehab, patient's daughter wants to take him home and declines home health as well. Possible discharge tomorrow to home with 24/ supervision under her daughter's care. 01/28 patient's daughter called and updated over the phone, answered all the questions, she voiced understanding and was agreeable to the plan of care. Admission and Anticipated Discharge Date Admission Date: January 23, 2021 Subjective Patient was sitting up in chair, on room air, NAD. Patient is AO x1 [to place] denies headache/dizziness/chest pain/palpitation/other review of symptoms. Physical Exam Physical Exam: GENERAL: Alert and oriented x1 (place). NAD, on RA. HEENT: No pallor, no icterus. Pupils equal, round and reactive to light. Oral mucosa moist. NECK: No JVD, no neck masses. HEART: S1 and S2 heard. Regular rate and rhythm. No murmur, no gallop. RESPIRATORY SYSTEM: Normal AP diameter. No accessory muscle use. No wheezing, no crackles. ABDOMEN: Soft, bowel sounds present, nontender, no distention. CENTRAL NERVOUS SYSTEM: No facial droop. Speech is clear. Obeys simple commands. Moves extremities. EXTREMITIES: No edema, no erythema seen. Results & Data Results & Data ([facility]) Vital Signs (Past 12 Hours) Vital Signs Temp Pulse Resp BP BP Pulse Ox 01/28/21 15:40 36.9 C 61 18 100/60 96 01/28/21 11:44 36.4 C L 66 16 87/58 L 102/46 L 97 01/28/21 07:54 36.6 C 62 22 135/88 97
[2021-01-28] MEDS: ENOXAPARIN INJ 40 MG/0.4 ML SYR SQ SCH (16:31)
[2021-01-28] MEDS: FUROSEMIDE 20 MG TAB PO SCH (16:32)
[2021-01-29] MEDS: CLOPIDOGREL BISULFATE 75 MG TAB PO SCH (07:38)
[2021-01-29] MEDS: DOXYCYCLINE HYCLATE 100 MG CAP PO SCH ×2 (07:38→19:47)
[2021-01-29] MEDS: SODIUM CHLORIDE 1 GM TABLET PO SCH ×2 (07:38→20:52)
[2021-01-29] MEDS: MULTIVITAMIN TAB PO SCH (07:38)
[2021-01-29] MEDS: ATORVASTATIN 40 MG TAB PO SCH (07:39)
[2021-01-29] MEDS: PANTOprazole 40 MG TAB PO SCH (07:39)
[2021-01-29 07:40] LABS: BUN Creatinine Ratio 40.1 (10-20); Calcium 9.3 mg/dl (8.5-10.1); Creatinine Clr Calc Pharmacy 27.9 ml/min; Est GFR (African American) 38.7 ml/min; Est GFR (Non-African American) 33.4 ml/min; Magnesium 2.6 mg/dl (1.8-2.4); Phosphorus 4.2 mg/dl (2.5-4.9); Potassium 3.9 mmol/L (3.5-5.1)
[2021-01-29] MEDS: UREA (UREA-NA) 15 GM PACK PO SCH ×3 (07:40→19:48)
[2021-01-29] MEDS: FUROSEMIDE 20 MG TAB PO SCH (10:25)
[2021-01-29] MEDS: lisinopril 10 MG TAB PO SCH (10:26)
[2021-01-29] MEDS: METOPROLOL SUCC 25MG EXT REL TAB PO SCH (10:26)
--- NOTE | 2021-01-29 11:15 | Nephrology Progress Note ---
Date of Service January 29, 2021 Assessment & Plan Admission and Anticipated Discharge Date Admission Date: January 23, 2021 Subjective Subjective Subjective Subjective S--no new issues this AM. Creat up a bit likely from bradycardia episode PHYSICAL EXAMINATION: GENERAL: Elderly white male who actually appears physically well-built, well- nourished, does not appear to be in any respiratory distress at all. HEENT: Mucous membrane is moist. NECK: Supple. No jugular venous distention. CHEST: Bilaterally clear to auscultation. CARDIOVASCULAR: S1 and S2, regular. ABDOMEN: Soft, nontender. EXTREMITIES: Show no edema. LABORATORY TEST: Shows serum sodium was 130 but Creat up a bit. ASSESSMENT AND PLAN: An 85-year-old male admitted 2 days ago with increasing confusion. I have been consulted for hyponatremia. Hyponatremia: This appears to be new onset. Back in 08/2020 when he was admitted with COVID pneumonia, serum sodium was normal. At this time, he appears euvolemic. 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 He is not on any medication known to cause hyp onatremia. Rec 1 Stop Lisinopril given low BP and rising Creat. 2 Continue salt tab 1 gm bid. 3 Hold lasix for now 4 most likely rising creat is reflection of the significant bradycardic episode he had on monday 5 Results & Data ([facility]) Vital Signs (Past 12 Hours) Vital Signs Temp Pulse Pulse Resp BP BP Pulse Ox 01/29/21 09:00 59 L 01/29/21 07:30 36.4 C L 60 18 93/57 L 97 01/29/21 04:22 36.7 C 66 20 92/67 L 94
[2021-01-29] MEDS: POLYETHYLENE (MIRALAX) 17 GM PACK PO SCH (12:04)
--- NOTE | 2021-01-29 13:44 | Hospitalist Progress Note ---
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 Patient was diagnosed with Lyme disease 2 days CONTAINER FILLER and started on doxy as an outpatient. Is being managed for the following: #. Hyponatremia: Recent vomiting prior to admission-? doxycycline as a cause vs other AGE which has now resolved. Sodium still low but rising slowly, 130 today morning Nephrology on board for management of sodium level: New diagnosis of SIADH being managed with Lasix and urea and FR 1200 mL/day. Daily BMP. Okay with discharge as long as sodium is greater than 128+ from nephrology point of view. Expect it to rise slowly. Discharge meds: Lasix 20 twice daily, salt tablet 1 g twice daily, urea 15 g 3 times daily, fluid restriction 1200 mL/day. Lasix currently held due to RAMEZ over CKD. #. RAMEZ over CKD: Baseline creatinine around 1.0 Creatinine up to 1.67 01/28, Likely secondary to bradycardia and hypotensive episodes on background of Lasix use. Creatinine uptrending, 1.82 today Nephrology on board: Hold Lasix, stop lisinopril. BMP daily, follow-up. #. Lyme disease: Recently diagnosed with Lyme during a screening for neuropathy; started on 21 day course of doxycycline as outpatient. As a result of vomiting at presentation, doxycycline was transition to IV ceftriaxone. Again transitioned him back to doxycycline to ensure he is tolerating this prior to discharge. #. COVID-19: Patient is testing positive for COVID-19 with a prior history of infection back in Aug, 2020. As this has been greater than 90 days since last known infection, may possibly represent reinfection. Currently the patient is oxygenating well on room air and does not qualify for any treatments at this time. Continue to monitor in the Covid unit on isolation. #. Hypotension: On and off low blood pressure readings Lisinopril stopped, continue to monitor #. Coronary artery disease: Continue medical management including atorvastatin, Plavix, Toprol-XL and Lisinopril #. DVT prophylaxis: Lovenox Conditional code where CPR is not desired, however, mechanical ventilation is okay. Disposition-PT recommending rehab, patient's daughter wants to take him home and declines home health as well. Possible discharge when kidney function returns to normal, to home with 24/7 supervision under her daughter's care. 01/28 patient's daughter called and updated over the phone, answered all the questions, she voiced understanding and was agreeable to the plan of care. 01/29 patient's daughter was called and updated over the phone, answered all questions, she voiced understanding and was agreeable to the plan of care. Admission and Anticipated Discharge Date Admission Date: January 23, 2021 Subjective Patient was sitting up in chair, room air, NAD, no acute events overnight. Patient denies any pain any headache or any chest pain or palpitation or other review of symptoms. Physical Exam Physical Exam: GENERAL: Alert and oriented x1 (place). NAD, on RA. HEENT: No pallor, no icterus. Pupils equal, round and reactive to light. Oral mucosa moist. NECK: No JVD, no neck masses. HEART: S1 and S2 heard. Regular rate and rhythm. No murmur, no gallop. RESPIRATORY SYSTEM: Normal AP diameter. No accessory muscle use. No wheezing, no crackles. ABDOMEN: Soft, bowel sounds present, nontender, no distention. CENTRAL NERVOUS SYSTEM: No facial droop. Speech is clear. Obeys simple commands. Moves extremities. EXTREMITIES: No edema, no erythema seen. Results & Data Results & Data ([facility]) Vital Signs (Past 12 Hours) Vital Signs Temp Pulse Pulse Resp BP BP Pulse Ox 01/29/21 11:42 36.4 C L 68 16 100/64 96 01/29/21 09:00 59 L 01/29/21 07:30 36.4 C L 60 18 93/57 L 97 01/29/21 04:22 36.7 C 66 20 92/67 L 94
[2021-01-29] MEDS: ENOXAPARIN INJ 40 MG/0.4 ML SYR SQ SCH (16:01)
[2021-01-30 07:49] LABS: BUN Creatinine Ratio 51.5 (10-20); Calcium 9.5 mg/dl (8.5-10.1); Creatinine Clr Calc Pharmacy 32.3 ml/min; Est GFR (African American) 46.6 ml/min; Est GFR (Non-African American) 40.2 ml/min; Potassium 3.7 mmol/L (3.5-5.1)
[2021-01-30] MEDS: METOPROLOL SUCC 25MG EXT REL TAB PO SCH (08:55)
[2021-01-30] MEDS: ATORVASTATIN 40 MG TAB PO SCH (08:56)
[2021-01-30] MEDS: MULTIVITAMIN TAB PO SCH (08:57)
[2021-01-30] MEDS: DOXYCYCLINE HYCLATE 100 MG CAP PO SCH ×2 (08:57→21:13)
[2021-01-30] MEDS: CLOPIDOGREL BISULFATE 75 MG TAB PO SCH (08:57)
[2021-01-30] MEDS: POLYETHYLENE (MIRALAX) 17 GM PACK PO SCH (08:58)
[2021-01-30] MEDS: SODIUM CHLORIDE 1 GM TABLET PO SCH ×2 (08:58→21:13)
[2021-01-30] MEDS: PANTOprazole 40 MG TAB PO SCH (08:58)
[2021-01-30] MEDS: UREA (UREA-NA) 15 GM PACK PO SCH ×3 (08:58→21:13)
--- NOTE | 2021-01-30 14:30 | Hospitalist Progress Note ---
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 Patient was diagnosed with Lyme disease 2 days PELT SHEARER and started on doxy as an outpatient. Is being managed for the following: #. Hyponatremia: Recent vomiting prior to admission-? doxycycline as a cause vs other AGE which has now resolved. Sodium still low but rising slowly, 130 today morning Nephrology on board for management of sodium level: New diagnosis of SIADH being managed with Lasix and urea and FR 1200 mL/day. Daily BMP. Okay with discharge as long as sodium is greater than 128+ from nephrology point of view. Expect it to rise slowly. Discharge meds: Lasix 20 twice dailyhold upon discharge until evaluated by Nephro in 3-4 days of DC, salt tablet 1 g twice daily, urea 15 g 3 times daily, fluid restriction 1200 mL/day. Lasix currently held due to RAMEZ over CKD. #. RAMEZ over CKD: Baseline creatinine around 1.0 Creatinine up to 1.67 01/28, Likely secondary to bradycardia and hypotensive episodes on background of Lasix use. Creatinine slowly resolving Nephrology on board: Hold Lasix, stop lisinopril. BMP daily, follow-up. #. Lyme disease: Recently diagnosed with Lyme during a screening for neuropathy; started on 21 day course of doxycycline as outpatient. As a result of vomiting at presentation, doxycycline was transition to IV ceftriaxone. Again transitioned him back to doxycycline to ensure he is tolerating this prior to discharge. #. COVID-19: Patient is testing positive for COVID-19 with a prior history of infection back in Aug, 2020. As this has been greater than 90 days since last known infection, may possibly r epresent reinfection. Currently the patient is oxygenating well on room air and does not qualify for any treatments at this time. Continue to monitor in the Covid unit on isolation. #. Hypotension: On and off low blood pressure readings Blood pressure fairly under control Lisinopril stopped, continue to monitor #. Coronary artery disease: Continue medical management including atorvastatin, Plavix, Toprol-XL . #. DVT prophylaxis: Lovenox Conditional code where CPR is not desired, however, mechanical ventilation is okay. Disposition- PT recommending rehab, patient's daughter wants to take him home and declines home health as well. Possible discharge when kidney function returns to normal, to home with 24/7 supervision under her daughter's care. BUT upon updating patient's Dtr on 01/30 (for discharge instruction), she wanted him to go to rehab because it is best for him. telegraph office manager updated about the new status and need to find placement for the patient. 01/28 patient's daughter called and updated over the phone, answered all the questions, she voiced understanding and was agreeable to the plan of care. 01/29 patient's daughter was called and updated over the phone, answered all que stions, she voiced understanding and was agreeable to the plan of care. 01/30 Patient's Dtr was called to update on discharge instruction, at which point she wanted him to go to rehab. Admission and Anticipated Discharge Date Admission Date: January 23, 2021 Subjective Patient was sitting up in chair, room air, NAD, no acute events overnight. Patient denies any pain any headache or any chest pain or palpitation or other review of symptoms. Per RN, patient at his baseline and needs patient support assistant for OOB. Physical Exam Physical Exam: GENERAL: Alert and oriented x1 (place). NAD, on RA. HEENT: No pallor, no icterus. Pupils equal, round and reactive to light. Oral mucosa moist. NECK: No JVD, no neck masses. HEART: S1 and S2 heard. Regular rate and rhythm. No murmur, no gallop. RESPIRATORY SYSTEM: Normal AP diameter. No accessory muscle use. No wheezing, no crackles. ABDOMEN: Soft, bowel sounds present, nontender, no distention. CENTRAL NERVOUS SYSTEM: No facial droop. Speech is clear. Obeys simple commands. Moves extremities. EXTREMITIES: No edema, no erythema seen. Results & Data Results & Data ([facility]) Vital Signs (Past 12 Hours) Vital Signs Temp Pulse Pulse Resp BP Pulse Ox 01/30/21 11:39 36.4 C L 66 18 114/72 99 01/30/21 07:37 36.4 C L 63 18 93/72 L 96 01/30/21 07:00 67 01/30/21 04:14 37.0 C 60 20 124/68 94
[2021-01-30] MEDS: ENOXAPARIN INJ 40 MG/0.4 ML SYR SQ SCH (16:07)
[2021-01-31 07:54] LABS: BUN Creatinine Ratio 57.2 (10-20); Calcium 10.2 mg/dl (8.5-10.1); Creatinine Clr Calc Pharmacy 36.4 ml/min; Est GFR (Non-African American) 46.6 ml/min; Potassium 3.8 mmol/L (3.5-5.1)
[2021-01-31] MEDS: ATORVASTATIN 40 MG TAB PO SCH (09:04)
[2021-01-31] MEDS: DOXYCYCLINE HYCLATE 100 MG CAP PO SCH ×2 (09:05→20:33)
[2021-01-31] MEDS: CLOPIDOGREL BISULFATE 75 MG TAB PO SCH (09:05)
[2021-01-31] MEDS: METOPROLOL SUCC 25MG EXT REL TAB PO SCH (09:06)
[2021-01-31] MEDS: MULTIVITAMIN TAB PO SCH (09:06)
[2021-01-31] MEDS: UREA (UREA-NA) 15 GM PACK PO SCH ×3 (09:07→20:33)
[2021-01-31] MEDS: PANTOprazole 40 MG TAB PO SCH (09:07)
[2021-01-31] MEDS: POLYETHYLENE (MIRALAX) 17 GM PACK PO SCH (09:07)
[2021-01-31] MEDS: SODIUM CHLORIDE 1 GM TABLET PO SCH ×2 (09:07→20:33)
[2021-01-31] MEDS: ENOXAPARIN INJ 40 MG/0.4 ML SYR SQ SCH (15:43)
--- NOTE | 2021-01-31 16:21 | Hospitalist Progress Note ---
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 Patient was diagnosed with Lyme disease 2 days RESEARCH SUPPORT SPECIALIST and started on doxy as an outpatient. Is being managed for the following: #. Hyponatremia: Recent vomiting prior to admission-? doxycycline as a cause vs other AGE which has now resolved. Sodium still low but rising slowly, 130 today morning Nephrology on board for management of sodium level: New diagnosis of SIADH being managed with Lasix and urea and FR 1200 mL/day. Daily BMP. Okay with discharge as long as sodium is greater than 128+ from nephrology point of view. Expect it to rise slowly. Discharge meds: Lasix 20 twice dailyheld due to RAMEZ over CKD, salt tablet 1 g twice daily, urea 15 g 3 times daily, c/w fluid restriction 1200 mL/day. Lasix currently held due to RAMEZ over CKD. Consider restarting Lasix upon discharge. Patient will need BMP in 3 to 5 days of discharge. #. RAMEZ over CKD: Baseline creatinine around 1.0 Creatinine up to 1.67 01/28, Likely secondary to bradycardia and hypotensive episodes on background of Lasix use. Creatinine slowly resolving Nephrology on board: Hold Lasix, stop lisinopril. BMP daily, follow-up. #. Lyme disease: Recently diagnosed with Lyme during a screening for neuropathy; started on 21 day course of doxycycline as outpatient. As a result of vomiting at presentation, doxycycline was transition to IV ceftriaxone. Again transitioned him back to doxycycline to ensure he is tolerating this prior to discharge. #. COVID-19: Patient is testing positive for COVID-19 with a prior history of infection back in Aug, 2020. As this has been greater than 90 days since last known infection, may possibly represent reinfection. Currently the patient is oxygenating well on room air and does not qualify for any treatments at this time. Continue to monitor in the Covid unit on isolation. #. Hypotension: On and off low blood pressure readings Blood pressure fairly under control Lisinopril stopped, continue to monitor #. Coronary artery disease: Continue medical management including atorvastatin, Plavix, Toprol-XL . #. DVT prophylaxis: Lovenox Conditional code where CPR is not desired, however, mechanical ventilation is okay. Disposition- PT recommending rehab, patient's daughter wants to take him home and declines home health as well. Possible discharge when kidney function returns to normal, to home with 24/7 supervision under her daughter's care. BUT upon updating patient's Dtr on 01/30 (for discharge instruction), she wanted him to go to rehab because it is best for him. account general manager updated about the new status and need to find placement for the patient. Patient is stable to go, awaiting placement. 01/28 patient's daughter called and updated over the phone, answered all the questions, she voiced understanding and was agreeable to the plan of care. 01/29 patient's daughter was called and updated over the phone, answered all questions, she voiced understanding and was agreeable to the plan of care. 01/30 Patient's Dtr was called to update on discharge instruction, at which point she wanted him to go to rehab. Admission and Anticipated Discharge Date Admission Date: January 23, 2021 Subjective Patient was sitting up in bed, room air, NAD, no acute events overnight. Patient denies any pain any headache or any chest pain or palpitation or other review of symptoms. Per RN, patient at his baseline and needs assistant spa manager for OOB. Per RN, no issues overnight and patient is eating and moving bowels. Physical Exam Physical Exam: GENERAL: Alert and oriented x1 (place). NAD, on RA. HEENT: No pallor, no icterus. Pupils equal, round and reactive to light. Oral mucosa moist. NECK: No JVD, no neck masses. HEART: S1 and S2 heard. Regular rate and rhythm. No murmur, no gallop. RESPIRATORY SYSTEM: Normal AP diameter. No accessory muscle use. No wheezing, no crackles. ABDOMEN: Soft, bowel sounds present, nontender, no distention. CENTRAL NERVOUS SYSTEM: No facial droop. Speech is clear. Obeys simple commands. Moves extremities. EXTREMITIES: No edema, no erythema seen. Results & Data Results & Data ([facility]) Vital Signs (Past 12 Hours) Vital Signs Temp Pulse Pulse Resp BP Pulse Ox 01/31/21 15:38 36.5 C 67 16 114/92 97 01/31/21 15:00 68 01/31/21 11:11 36.5 C 68 19 128/91 98 01/31/21 07:06 36.4 C L 77 18 109/74 96 01/31/21 07:00 66
[2021-02-01] MEDS: UREA (UREA-NA) 15 GM PACK PO SCH ×3 (10:10→20:53)
[2021-02-01] MEDS: SODIUM CHLORIDE 1 GM TABLET PO SCH ×2 (10:10→20:55)
[2021-02-01] MEDS: POLYETHYLENE (MIRALAX) 17 GM PACK PO SCH (10:11)
[2021-02-01] MEDS: CLOPIDOGREL BISULFATE 75 MG TAB PO SCH (10:11)
[2021-02-01] MEDS: DOXYCYCLINE HYCLATE 100 MG CAP PO SCH ×2 (10:11→20:55)
[2021-02-01] MEDS: METOPROLOL SUCC 25MG EXT REL TAB PO SCH (10:11)
[2021-02-01] MEDS: PANTOprazole 40 MG TAB PO SCH (10:13)
[2021-02-01] MEDS: MULTIVITAMIN TAB PO SCH (10:13)
[2021-02-01] MEDS: ATORVASTATIN 40 MG TAB PO SCH (10:13)
[2021-02-01 11:18] LABS: Calcium 9.4 mg/dl (8.5-10.1); Creatinine Clr Calc Pharmacy 36.5 ml/min; Est GFR (Non-African American) 48.3 ml/min; Potassium 4.2 mmol/L (3.5-5.1)
--- NOTE | 2021-02-01 15:13 | Hospitalist Progress Note ---
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 Patient was diagnosed with Lyme disease 2 days PHARMACY TECH and started on doxy as an outpatient. Is being managed for the following: #. Hyponatremia: Recent vomiting prior to admission-? doxycycline as a cause vs other AGE which has now resolved. Nephrology on board for management of sodium level: New diagnosis of SIADH being managed with Lasix and urea and FR 1200 mL/day. Daily BMP. Okay with discharge as long as sodium is greater than 128+ from nephrology point of view. Discharge meds: Lasix 20 twice dailyheld due to RAMEZ over CKD, salt tablet 1 g twice daily, urea 15 g 3 times daily, c/w fluid restriction 1200 mL/day. Lasix currently held due to RAMEZ over CKD. Sodium level back to normal Consider restarting Lasix upon discharge if BP permits, if not will need re-eval in 3-5 days of DC for meds adjustment. Patient will need BMP in 3 to 5 days of discharge. #. RAMEZ over CKD: Baseline creatinine around 1.0 Creatinine up to 1.67 01/28, Likely secondary to bradycardia and hypotensive episodes on background of Lasix use. Resolved Hold lasix, resume lisinopril when BP permits. BMP daily, follow-up. #. Lyme disease: Recently diagnosed with Lyme during a screening for neuropathy; started on 21 day course of doxycycline as outpatient. As a result of vomiting at presentation, doxycycline was transition to IV ceftriaxone. Again transitioned him back to doxycycline to ensure he is tolerating this prior to discharge. #. COVID-19: Patient is testing positive for COVID-19 with a prior history of infection back in Aug, 2020. As this has been greater than 90 days since last known infection, may possibly represent reinfection. Currently the patient is oxygenating well on room air and does not qualify for any treatments at this time. Continue to monitor in the Covid unit on isolation. #. Hypotension: On and off low blood pressure readings Blood pressure fairly under control Lisinopril stopped, continue to monitor #. Coronary artery disease: Continue medical management including atorvastatin, Plavix, Toprol-XL . #. DVT prophylaxis: Lovenox Conditional code where CPR is not desired, however, mechanical ventilation is okay. Disposition- PT recommending rehab, patient's daughter wants to take him home and declines home health as well. Possible discharge when kidney function returns to normal, to home with 24/ supervision under her daughter's care. BUT upon updating patient's Dtr on 01/30 (for discharge instruction), she wanted him to go to rehab because it is best for him. marketing operations manager updated about the new status and need to find placement for the patient. Patient is stable to go, awaiting placement. 01/28 patient's daughter called and updated over the phone, answered all the questions, she voiced understanding and was agreeable to the plan of care. 01/29 patient's daughter was called and updated over the phone, answered all questions, she voiced understanding and was agreeable to the plan of care. 01/30 Patient's Dtr was called to update on discharge instruction, at which point she wanted him to go to rehab. Admission and Anticipated Discharge Date Admission Date: January 23, 2021 Subjective Patient was sitting up in chair, room air, NAD, no acute events overnight. Patient denies any pain any headache or any chest pain or palpitation or other review of symptoms. Patient is eating and moving bowels. Physical Exam Physical Exam: GENERAL: Alert and oriented x1 (place). NAD, on RA. HEENT: No pallor, no icterus. Pupils equal, round and reactive to light. Oral mucosa moist. NECK: No JVD, no neck masses. HEART: S1 and S2 heard. Regular rate and rhythm. No murmur, no gallop. RESPIRATORY SYSTEM: Normal AP diameter. No accessory muscle use. No wheezing, no crackles. ABDOMEN: Soft, bowel sounds present, nontender, no distention. CENTRAL NERVOUS SYSTEM: No facial droop. Speech is clear. Obeys simple commands. Moves extremities. EXTREMITIES: No edema, no erythema seen. Results & Data Results & Data ([facility]) Vital Signs (Past 12 Hours) Vital Signs Temp Pulse Pulse Resp BP Pulse Ox 02/01/21 11:47 36.9 C 69 19 99/78 L 99 02/01/21 08:02 36.5 C 58 L 19 114/64 98 02/01/21 03:51 63 02/01/21 03:32 36.5 C 65 16 116/67 97
[2021-02-01] MEDS: ENOXAPARIN INJ 40 MG/0.4 ML SYR SQ SCH (16:46)
[2021-02-01] MEDS ORDERED: OLANZapine 10 MG/2.1 ML SDV IM PRN (20:32)
[2021-02-01] MEDS: MELATONIN 3 MG TAB PO PRN (20:53)
[2021-02-02 06:49] LABS: BUN Creatinine Ratio 41.7 (10-20); Calcium 9.7 mg/dl (8.5-10.1); Creatinine Clr Calc Pharmacy 36.8 ml/min; Est GFR (African American) 56.5 ml/min; Est GFR (Non-African American) 48.7 ml/min; Magnesium 2.7 mg/dl (1.8-2.4); Potassium 4.1 mmol/L (3.5-5.1)
[2021-02-02] MEDS: PANTOprazole 40 MG TAB PO SCH (09:21)
[2021-02-02] MEDS: CLOPIDOGREL BISULFATE 75 MG TAB PO SCH (09:21)
[2021-02-02] MEDS: MULTIVITAMIN TAB PO SCH (09:21)
[2021-02-02] MEDS: POLYETHYLENE (MIRALAX) 17 GM PACK PO SCH (09:22)
[2021-02-02] MEDS: METOPROLOL SUCC 25MG EXT REL TAB PO SCH (09:22)
[2021-02-02] MEDS: DOXYCYCLINE HYCLATE 100 MG CAP PO SCH ×2 (09:22→20:37)
[2021-02-02] MEDS: ATORVASTATIN 40 MG TAB PO SCH (09:22)
[2021-02-02] MEDS: UREA (UREA-NA) 15 GM PACK PO SCH ×2 (09:23→12:49)
[2021-02-02] MEDS: SODIUM CHLORIDE 1 GM TABLET PO SCH ×2 (09:24→20:37)
[2021-02-02] MEDS: ENOXAPARIN INJ 40 MG/0.4 ML SYR SQ SCH (17:03)
--- NOTE | 2021-02-02 18:26 | Nephrology Progress Note ---
Date of Service February 02, 2021 Assessment & Plan (1) Hyponatremia: Plan: resolved now at appropriate rate on urea, salt tabs. lasix remains on hold -stopped urea -cont salt tabs -cont to hold lasix -daily bmp while in house -liberalized fluid limit to 1.8L (2) Acute renal failure: Plan: improving stage 1 nonoliguric RAMEZ wiht baseline creatinine 1.0. also hx of NHL found at R renal hilum 2016 and w/ R renal atrophy and BL cortical scarring on 2019. He had some bradycardia 01/27 > RAMEZ -daily bmp -cont to hold ACEI and lasix for now Admission and Anticipated Discharge Date Admission Date: January 23, 2021 Subjective seen on rounds at about 1520; he is [place] so communication somewhat limited; denies sob, voiding concern, uncontrolled pain, JACOBS, edema. c/o hunger and thirst Review of Systems Review of Systems: All systems reviewed & are unremarkable except as noted in Subjective Physical Exam Constitutional: well developed, + thin, + frail appearing and cooperative; no acute distress Eyes: + conjunctival abnormality (L eye) and EOM intact bilaterally; + abnormal visual field confrontation (impaired visual acuity > cannot see glass of water sitting beside him) ENMT: Ears: no external ear abnormality Nose: no external nose abnormality Mouth: + dry oral mucous membranes Neck: no nuchal rigidity Respiratory: normal respiratory effort Auscultation: + diminished lung sounds (markedly) and + crackles (occasional end inspiratory crackles) +clubbing Cardiovascular: Rate/Rhythm: regular rate and regular rhythm Heart Sounds: normal S1 (distant) and normal S2 Gastrointestinal (Abdomen): Inspection/Auscultation: normal bowel sounds Percussion/Palpation: abdomen soft; abdomen nontender Musculoskeletal: mild generalized weakness Skin: no rashes, warm and dry Neurologic: tse, fluent speech, + tremor Results & Data ([facility]) Vital Signs (Past 12 Hours) Vital Signs Temp Pulse Resp BP Pulse Ox 02/02/21 14:14 36.8 C 61 18 128/76 98 Laboratory Results 01/28/21 06:05 02/02/21 05:55
--- NOTE | 2021-02-02 19:50 | Hospitalist Progress Note ---
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 Is being managed for the following: #. Hyponatremia: Recent vomiting prior to admission-? doxycycline as a cause vs other AGE which has now resolved. Nephrology on board for management of sodium level: New diagnosis of SIADH being managed with Lasix and urea and FR 1200 mL/day. Daily BMP. Okay with discharge as long as sodium is greater than 128+ from nephrology point of view. Discharge meds: Lasix 20 twice dailyheld due to RAMEZ over CKD, salt tablet 1 g twice daily, urea 15 g 3 times daily, c/w fluid restriction 1200 mL/day. Lasix currently held due to RAMEZ over CKD. Sodium level back to normal Consider restarting Lasix upon discharge if BP permits, if not will need re-eval in 3-5 days of DC for meds adjustment. Patient will need BMP in 3 to 5 days of discharge. #. RAMEZ over CKD: Baseline creatinine around 1.0 Creatinine up to 1.67 01/28, Likely secondary to bradycardia and hypotensive episodes on background of Lasix use. Resolved Hold lasix, resume lisinopril when BP permits. BMP daily, follow-up. #. Lyme disease: Recently diagnosed with Lyme during a screening for neuropathy; started on 21 day course of doxycycline as outpatient. As a result of vomiting at presentation, doxycycline was transition to IV ceftriaxone. Again transitioned him back to doxycycline to ensure he is tolerating this prior to discharge. DC with remaining days of Doxy upon discharge. #. COVID-19: Patient is testing positive for COVID-19 with a prior history of infection back in Aug, 2020. As this has been greater than 90 days since last known infection, may possibly represent reinfection. Currently the patient is oxygenating well on room air and does not qualify for any treatments at this time. Continue to monitor in the Covid unit on isolation. #. Hypotension: On and off low blood pressure readings Blood pressure fairly under control Lisinopril stopped, continue to monitor #. Coronary artery disease: Continue medical management including atorvastatin, Plavix, Toprol-XL . #. DVT prophylaxis: Lovenox Conditional code where CPR is not desired, however, mechanical ventilation is okay. Disposition- PT recommending rehab, patient's daughter wants to take him home and declines home health as well. Possible discharge when kidney function returns to normal, to home with 24/7 supervision under her daughter's care. BUT upon updating patient's Dtr on 01/30 (for discharge instruction), she wanted him to go to rehab because it is best for him. database marketing manager updated about the new status and need to find placement for the patient. Patient is stable to go, awaiting placement. 01/28 patient's daughter called and updated over the phone, answered all the questions, she voiced understanding and was agreeable to the plan of care. 01/29 patient's daughter was called and updated over the phone, answered all questions, she voiced understanding and was agreeable to the plan of care. 01/30 Patient's Dtr was called to update on discharge instruction, at which point she wanted him to go to rehab. Admission and Anticipated Discharge Date Admission Date: January 23, 2021 Subjective Patient was sitting up in chair, room air, NAD. No acute events overnight. Patient was eating crackers. Patient is hard of hearing. Patient denies headache/chills/chest pain/palpitation/other review of symptoms. Physical Exam Physical Exam: GENERAL: Alert and oriented x1 (place). NAD, on RA. HEENT: No pallor, no icterus. Pupils equal, round and reactive to light. Oral mucosa moist. NECK: No JVD, no neck masses. HEART: S1 and S2 heard. Regular rate and rhythm. No murmur, no gallop. RESPIRATORY SYSTEM: Normal AP diameter. No accessory muscle use. No wheezing, no crackles. ABDOMEN: Soft, bowel sounds present, nontender, no distention. CENTRAL NERVOUS SYSTEM: No facial droop. Speech is clear. Obeys simple c ommands. Moves extremities. EXTREMITIES: No edema, no erythema seen. Results & Data Results & Data ([facility]) Vital Signs (Past 12 Hours) Vital Signs Temp Pulse Resp BP Pulse Ox 02/02/21 14:14 36.8 C 61 18 128/76 98
[2021-02-02] MEDS: MELATONIN 3 MG TAB PO PRN (20:36)
[2021-02-03] MEDS: DOXYCYCLINE HYCLATE 100 MG CAP PO SCH ×2 (08:33→20:46)
[2021-02-03] MEDS: PANTOprazole 40 MG TAB PO SCH (08:33)
[2021-02-03] MEDS: SODIUM CHLORIDE 1 GM TABLET PO SCH (08:33)
[2021-02-03] MEDS: ATORVASTATIN 40 MG TAB PO SCH (08:34)
[2021-02-03] MEDS: MULTIVITAMIN TAB PO SCH (08:34)
[2021-02-03] MEDS: CLOPIDOGREL BISULFATE 75 MG TAB PO SCH (08:34)
[2021-02-03] MEDS: METOPROLOL SUCC 25MG EXT REL TAB PO SCH (08:34)
[2021-02-03] MEDS: POLYETHYLENE (MIRALAX) 17 GM PACK PO SCH (08:34)
[2021-02-03 10:49] LABS: Basophils # (auto) 0.04 K/uL (0-0.2); Basophils % (auto) 0.5 %; Eosinophils # (auto) 0.22 K/uL (0-0.5); Hematocrit (blood only) 34.5 % (42-52); Hemoglobin 11.6 g/dL (14.0-18.0); Immature Granulocytes # (auto) 0.01 K/uL (0.00-0.02); Immature Granulocytes % (auto) 0.1 %; Lymphocytes # (auto) 1.39 K/uL (1.2-3.4); Lymphocytes % (auto) 19.1 %; Mean Corpuscular Hemoglobin 28.8 pg (25-34); Mean Corpuscular Hgb Conc 33.6 g/dL (32-36); Mean Corpuscular Volume 85.6 fL (80-100); Mean Platelet Volume 9.6 fL (7.4-10.4); Monocytes # (auto) 0.52 K/uL (0.11-0.59); Monocytes % (auto) 7.1 %; Neutrophils % (auto) 70.2 %; Platelet Count 316 K/uL (130-400); RDW Coefficient of Variation 14.8 % (11.5-14.5); RDW Standard Deviation 46.7 fL (36.4-46.3); Red Blood Count 4.03 M/uL (4.7-6.1); White Blood Count 7.28 K/uL (4.8-10.8)
[2021-02-03 11:20] LABS: Albumin Level 3.2 gm/dl (3.4-5.0); BUN Creatinine Ratio 32.2 (10-20); Calcium 9.7 mg/dl (8.5-10.1); Creatinine Clr Calc Pharmacy 39.5 ml/min; Est GFR (African American) 61.5 ml/min; Est GFR (Non-African American) 53.1 ml/min; Potassium 4.1 mmol/L (3.5-5.1)
[2021-02-03 11:22] LABS: Albumin Globulin Ratio 0.7 (0.9-2); Bilirubin,Total 0.8 mg/dl (0.2-1); Globulin 4.4 gm/dl (2.5-4.0); Total Protein 7.6 gm/dl (6.4-8.2)
--- NOTE | 2021-02-03 11:36 | Hospitalist Progress Note ---
Date of Service February 03, 2021 Assessment & Plan (1) Acute hyponatremia: (2) Lyme disease: Plan: 85-year-old male with PMH of B-cell lymphoma status post radiation, CAD status post stent, CKD, dementia, CVA without any residual weakness, HTN, HLD, Covid pneumonia in August 2020, thoracis aortic aneurysm, left eye blindness, and mild was brought into our ED 01/23 with complaint of vomiting/nausea/off-balance starting 3 days MED DIR. Patient was diagnosed with Lyme disease 2 days MED DIR and started on doxy as an outpatient. Is being managed for the following: #. Hyponatremia: Recent vomiting prior to admission-? doxycycline as a cause which has now resolved. Nephrology on board for management of sodium level: New diagnosis of SIADH being managed with Lasix and urea and FR 1200 mL/day. Daily BMP. Keep holding ACEI and lasix even on discharge for now Currently on salt tabs. Off urea Will need daily BMP while inpatient Will need BMP oupatient and close follow up with Nephro #. RAMEZ over CKD3: Baseline creatinine around 1.0 Creatinine up to 1.67 01/28, Cr down to 1.24 today. Monitor #. Lyme disease: Recently diagnosed with Lyme during a screening for neuropathy; started on 21 day course of doxycycline as outpatient. As a result of vomiting at presentation, doxycycline was transition to IV ceftriaxone. Again transitioned him back to doxycycline to ensure he is tolerating this prior to discharge. DC with remaining days of Doxy upon discharge. #. COVID-19: Patient is testing positive for COVID-19 with a prior history of infection back in Aug, 2020. As this has been greater than 90 days since last known infection, may possibly represent reinfection. Currently the patient is oxygenating well on room air and does not qualify for any treatments at this time. Continue to monitor in the Covid unit on isolation. #. Hypotension: On and off low blood pressure readings Blood pressure stable Lisinopril stopped #. Coronary artery disease: Continue medical management including atorvastatin, Plavix, Toprol-XL . #. DVT prophylaxis: Lovenox Conditional code where CPR is not desired, however, mechanical ventilation is okay. Disposition- PT recommending rehab Per Previous Provider, patient's daughter wanted to take him home and declines home health as well but later changed her mind to have him go to rehab CM working on this Admission and Anticipated Discharge Date Admission Date: January 23, 2021 Subjective 85-year-old man with history of B-cell lymphoma status post radiation, CAD status post stent, CKD, dementia, CVA, hypertension, hyperlipidemia, Covid pneumonia and August 2020, thoracic aortic aneurysm, left eye blindness, AST presented to the ER with nausea, vomiting. Recent diagnosis of Lyme disease 2 days prior to presentation. Found to have hyponatremia, RAMEZ on CKD and tested positive for COVID-19. Patient seen and examined today. Denies any complaints Review of Systems Constitutional: no fatigue and no anorexia Respiratory: no cough and no dyspnea Cardiovascular: no chest pain, no dyspnea, no palpitations and no lightheadedness Gastrointestinal: no abdominal pain, no nausea and no vomiting Genitourinary: no dysuria, no difficulty urinating or no urinary frequency Neurologic: no generalized weakness, no dizziness and no headache(s) Psychiatric: no depression and no anxiety Physical Exam Constitutional: + well hydrated; no acute distress Elderly man ENMT: external ear and nose normal, oropharynx normal Respiratory: normal respiratory effort, lungs clear to auscultation Cardiovascular: RRR, S1-S2 Gastrointestinal (Abdomen): normal bowel sounds, soft, nontender, no hepatosplenomegaly Musculoskeletal: No pedal edema Neurologic: Alert and oriented to person only, follows command, no focal deficits Psychiatric: Poor insight Results & Data Results & Data ([facility]) Vital Signs (Past 12 Hours) Vital Signs Temp Pulse Resp BP Pulse Ox 02/03/21 07:10 36.4 C L 72 18 148/86 H 97 Laboratory Results Abnormal lab results 02/03/21 02/03/21 Range/Units 10:33 10:33 RBC 4.03 L (4.7-6.1) M/uL Hgb 11.6 L (14.0-18.0) g/dL Hct 34.5 L (42-52) % RDW Std Deviation 46.7 H (36.4-46.3) fL RDW Coeff of Roderick 14.8 H (11.5-14.5) % Chloride 108 H (98-107) mmol/L BUN 40 H (7-18) mg/dl BUN/Creatinine Ratio 32.2 H (10-20) Glucose 101 H (70-99) mg/dl AST 38 H (15-37) U/L Albumin 3.2 L (3.4-5.0) gm/dl Globulin 4.4 H (2.5-4.0) gm/dl Albumin/Globulin Ratio 0.7 L (0.9-2)
[2021-02-03] MEDS: ENOXAPARIN INJ 40 MG/0.4 ML SYR SQ SCH (15:46)
--- NOTE | 2021-02-03 20:04 | Nephrology Progress Note ---
Date of Service February 03, 2021 Assessment & Plan (1) Hyponatremia: Plan: resolved now at appropriate rate on urea, salt tabs. lasix remains on hold -stopped urea -stopped salt tabs -daily bmp while in house -cont liberalized fluid limit 1.8L will sign off DISCHARGE RECS -d/c on fluid limit 1.8L -no indication for renal f/u unless ongoing issues -resume ACEI at d/c -have PCP/accepting facility check weekly bmp x 3 after d/c - if sNa still wnl d/c fluid limit (2) Acute renal failure: Plan: improving stage 1 nonoliguric RAMEZ wiht baseline creatinine 1.0. also hx of NHL found at R renal hilum 2016 and w/ R renal atrophy and BL cortical scarring on 2019. He had some bradycardia 10/20 > RAMEZ -daily bmp -cont to hold ACEI for now Admission and Anticipated Discharge Date Admission Date: January 23, 2021 Subjective no acut einterval events. eating; denies sob, denies voiding concerns Review of Systems Review of Systems: All systems reviewed & are unremarkable except as noted in Subjective Physical Exam Constitutional: well developed, + thin, + frail appearing and cooperative; no acute distress up in chair on RA Eyes: + conjunctival abnormality (L eye) and EOM intact bilaterally; + abnormal visual field confrontation (impaired visual acuity > cannot se ehelicopter out window) ENMT: Ears: no external ear abnormality Nose: no external nose abnormality Mouth: + dry oral mucous membranes Neck: no nuchal rigidity Respiratory: normal respiratory effort Auscultation: + diminished lung sounds (markedly) Cardiovascular: Rate/Rhythm: regular rate and regular rhythm Heart Sounds: normal S1 (distant) and normal S2 Gastrointestinal (Abdomen): Inspection/Auscultation: normal bowel sounds Percussion/Palpation: abdomen soft; abdomen nontender Skin: no rashes, warm and dry Neurologic: tse, fluent speech, no tremor Results & Data ([facility]) Vital Signs (Past 12 Hours) Vital Signs Temp Pulse Resp BP Pulse Ox 02/03/21 14:17 36.5 C 72 18 121/79 97 Laboratory Results 02/03/21 10:33 02/03/21 10:33
[2021-02-03] MEDS: MELATONIN 3 MG TAB PO PRN (20:46)
[2021-02-04 06:09] LABS: Hematocrit (blood only) 32.7 % (42-52); Hemoglobin 11.2 g/dL (14.0-18.0); Mean Corpuscular Hgb Conc 34.3 g/dL (32-36); Mean Corpuscular Volume 84.7 fL (80-100); Mean Platelet Volume 9.9 fL (7.4-10.4); Platelet Count 290 K/uL (130-400); RDW Coefficient of Variation 14.8 % (11.5-14.5); RDW Standard Deviation 45.7 fL (36.4-46.3); Red Blood Count 3.86 M/uL (4.7-6.1); White Blood Count 7.59 K/uL (4.8-10.8)
[2021-02-04 06:40] LABS: BUN Creatinine Ratio 28.3 (10-20); Calcium 9.4 mg/dl (8.5-10.1); Creatinine Clr Calc Pharmacy 39.4 ml/min; Est GFR (African American) 62.1 ml/min; Est GFR (Non-African American) 53.6 ml/min; Potassium 3.9 mmol/L (3.5-5.1)
[2021-02-04] MEDS: DOXYCYCLINE HYCLATE 100 MG CAP PO SCH ×2 (08:42→19:41)
[2021-02-04] MEDS: METOPROLOL SUCC 25MG EXT REL TAB PO SCH (08:42)
[2021-02-04] MEDS: ATORVASTATIN 40 MG TAB PO SCH (08:43)
[2021-02-04] MEDS: POLYETHYLENE (MIRALAX) 17 GM PACK PO SCH (08:43)
[2021-02-04] MEDS: CLOPIDOGREL BISULFATE 75 MG TAB PO SCH (08:43)
[2021-02-04] MEDS: MULTIVITAMIN TAB PO SCH (08:43)
[2021-02-04] MEDS: PANTOprazole 40 MG TAB PO SCH (08:43)
--- NOTE | 2021-02-04 09:55 | Hospitalist Progress Note ---
Date of Service February 04, 2021 Assessment & Plan (1) Acute hyponatremia: (2) Lyme disease: Plan: 85-year-old male with PMH of B-cell lymphoma status post radiation, CAD status post stent, CKD, dementia, CVA without any residual weakness, HTN, HLD, Covid pneumonia in August 2020, thoracis aortic aneurysm, left eye blindness, and mild was brought into our ED 01/23 with complaint of vomiting/nausea/off-balance starting 3 days VP PATIENT. Patient was diagnosed with Lyme disease 2 days VP PATIENT and started on doxy as an outpatient. Is being managed for the following: #. Hyponatremia: Recent vomiting prior to admission-? doxycycline as a cause which has now resolved. Hyponatremia resolved Discussed with pediatric cardiologist Salt tabs and urea already stopped Daily BMP while inpatient Fluid restriction at 1.8L #. RAMEZ over CKD3: Baseline creatinine around 1.0 Creatinine up to 1.67 01/28, Cr down to 1.23 today. Monitor Resume ACEI on dc #. Lyme disease: Recently diagnosed with Lyme during a screening for neuropathy; started on 21 day course of doxycycline as outpatient. As a result of vomiting at presentation, doxycycline was transition to IV ceftriaxone. Again transitioned him back to doxycycline to ensure he is tolerating this prior to discharge. DC with remaining days of Doxy upon discharge. #. COVID-19: Patient is testing positive for COVID-19 with a prior history of infection back in Aug, 2020. As this has been greater than 90 days since last known infection, may possibly represent reinfection. Currently the patient is oxygenating well on room air and does not qualify for any treatments at this time. Discussed with infection control. Discontinue isolation #. Hypotension: On and off low blood pressure readings Blood pressure stable Plan to resume ACEI on discharge #. Coronary artery disease: Continue medical management including atorvastatin, Plavix, Toprol-XL . #. DVT prophylaxis: Lovenox Conditional code where CPR is not desired, however, mechanical ventilation is okay. Disposition- PT recommending rehab Per Previous Provider, patient's daughter wanted to take him home and declines home health as well but later changed her mind to have him go to rehab CM working on this Admission and Anticipated Discharge Date Admission Date: January 23, 2021 Subjective 85-year-old man with history of B-cell lymphoma status post radiation, CAD status post stent, CKD, dementia, CVA, hypertension, hyperlipidemia, Covid pneumonia and August 2020, thoracic aortic aneurysm, left eye blindness, AST presented to the ER with nausea, vomiting. Recent diagnosis of Lyme disease 2 days prior to presentation. Found to have hyponatremia, RAMEZ on CKD and tested positive for COVID-19. Patient seen and examined this morning. Denies any complaints Review of Systems Constitutional: no fatigue and no anorexia Respiratory: no cough and no dyspnea Cardiovascular: no chest pain, no dyspnea, no palpitations and no lightheadedness Gastrointestinal: no abdominal pain, no nausea and no vomiting Genitourinary: no dysuria, no difficulty urinating or no urinary frequency Neurologic: no generalized weakness, no dizziness and no headache(s) Psychiatric: no depression and no anxiety Physical Exam Constitutional: + well hydrated; no acute distress ENMT: external ear and nose normal, oropharynx normal Respiratory: normal respiratory effort, lungs clear to auscultation Cardiovascular: RRR S1 S2 Gastrointestinal (Abdomen): normal bowel sounds, soft, nontender, no hepatosplenomegaly Musculoskeletal: No pedal edema Neurologic: AOx2, no focal deficits Results & Data Results & Data ([facility]) Vital Signs (Past 12 Hours) Vital Signs Temp Pulse Resp BP Pulse Ox 02/04/21 08:38 36.6 C 57 L 16 136/81 95 02/03/21 22:45 36.2 C L 55 L 18 133/78 97 Laboratory Results Abnormal lab results 02/04/21 02/04/21 Range/Units 05:29 05:29 RBC 3.86 L (4.7-6.1) M/uL Hgb 11.2 L (14.0-18.0) g/dL Hct 32.7 L (42-52) % RDW Coeff of Roderick 14.8 H (11.5-14.5) % BUN 35 H (7-18) mg/dl BUN/Creatinine Ratio 28.3 H (10-20)
[2021-02-04] MEDS: ENOXAPARIN INJ 40 MG/0.4 ML SYR SQ SCH (16:45)
[2021-02-04] MEDS: MELATONIN 3 MG TAB PO PRN (22:26)
[2021-02-05] MEDS: METOPROLOL SUCC 25MG EXT REL TAB PO SCH (08:11)
[2021-02-05] MEDS: ATORVASTATIN 40 MG TAB PO SCH (08:11)
[2021-02-05] MEDS: MULTIVITAMIN TAB PO SCH (08:12)
[2021-02-05] MEDS: POLYETHYLENE (MIRALAX) 17 GM PACK PO SCH (08:12)
[2021-02-05] MEDS: CLOPIDOGREL BISULFATE 75 MG TAB PO SCH (08:12)
[2021-02-05] MEDS: PANTOprazole 40 MG TAB PO SCH (08:13)
--- NOTE | 2021-02-05 12:28 | Internal Med Progress Note ---
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 Patient was diagnosed with Lyme disease 2 days LIQUOR TESTER and started on doxy as an outpatient. Is being managed for the following: #. Hyponatremia: Recent vomiting prior to admission-? doxycycline as a cause which has now resolved. Hyponatremia resolved Salt tabs and urea already stopped Fluid restriction at 1.8L Check BMP tomorrow #. RAMEZ over CKD3: Baseline creatinine around 1.0 Creatinine up to 1.67 01/28, Cr down to 1.23. Monitor Resume ACEI on dc #. Lyme disease: Recently diagnosed with Lyme during a screening for neuropathy; started on 21 day course of doxycycline as outpatient. As a result of vomiting at presentation, doxycycline was transition to IV ceftriaxone. Again transitioned him back to doxycycline to ensure he is tolerating this prior to discharge. DC with remaining days of Doxy upon discharge. #. COVID-19: Patient is testing positive for COVID-19 with a prior history of infection back in Aug, 2020. As this has been greater than 90 days since last known infection, may possibly represent reinfection. Currently the patient is oxygenating well on room air and does not qualify for any treatments at this time. Discussed with infection control. Discontinue isolation #. Hypotension: On and off low blood pressure readings BP currently stable to elevated Plan to resume ACEI tomorrow #. Coronary artery disease: Continue medical management including atorvastatin, Plavix, Toprol-XL . #. DVT prophylaxis: Lovenox Conditional code where CPR is not desired, however, mechanical ventilation is okay. Disposition- PT recommending rehab Per Previous Provider, patient's daughter wanted to take him home and declines home health as well but later changed her mind to have him go to rehab Possible dc over the weekend to [place] per Admission and Anticipated Discharge Date Admission Date: January 23, 2021 Subjective 85-year-old man with history of B-cell lymphoma status post radiation, CAD status post stent, CKD, dementia, CVA, hypertension, hyperlipidemia, Covid pneumonia and August 2020, thoracic aortic aneurysm, left eye blindness, AST presented to the ER with nausea, vomiting. Recent diagnosis of Lyme disease 2 days prior to presentation. Found to have hyponatremia, RAMEZ on CKD and tested positive for COVID-19. Patient seen and examined this morning. Denies any complaints Review of Systems Constitutional: no fatigue and no anorexia Respiratory: no cough and no dyspnea Cardiovascular: no chest pain, no dyspnea, no palpitations and no lightheadedness Gastrointestinal: no abdominal pain, no nausea and no vomiting Genitourinary: no dysuria, no difficulty urinating or no urinary frequency Neurologic: no generalized weakness, no dizziness and no headache(s) Psychiatric: no depression and no anxiety Physical Exam Constitutional: + well hydrated; no acute distress ENMT: external ear and nose normal, oropharynx normal Respiratory: normal respiratory effort, lungs clear to auscultation Cardiovascular: RRR S1 S2 Gastrointestinal (Abdomen): normal bowel sounds, soft, nontender, no hepatosplenomegaly Musculoskeletal: No pedal edema Neurologic: Aox1, follows commands, cooperative Results & Data ([facility]) Vital Signs (Past 12 Hours) Vital Signs Temp Pulse Resp BP Pulse Ox 02/05/21 08:09 36.4 C L 64 16 155/81 H 100
[2021-02-05] MEDS: ENOXAPARIN INJ 40 MG/0.4 ML SYR SQ SCH (15:27)
[2021-02-05] MEDS: MELATONIN 3 MG TAB PO PRN (20:50)
[2021-02-06 06:36] LABS: BUN Creatinine Ratio 25.6 (10-20); Calcium 9.4 mg/dl (8.5-10.1); Creatinine Clr Calc Pharmacy 40.4 ml/min; Est GFR (Non-African American) 55.2 ml/min; Potassium 3.9 mmol/L (3.5-5.1)
[2021-02-06] MEDS: PANTOprazole 40 MG TAB PO SCH (08:14)
[2021-02-06] MEDS: ATORVASTATIN 40 MG TAB PO SCH (08:14)
[2021-02-06] MEDS: MULTIVITAMIN TAB PO SCH (08:14)
[2021-02-06] MEDS: CLOPIDOGREL BISULFATE 75 MG TAB PO SCH (08:14)
[2021-02-06] MEDS: POLYETHYLENE (MIRALAX) 17 GM PACK PO SCH (08:15)
[2021-02-06] MEDS: METOPROLOL SUCC 25MG EXT REL TAB PO SCH (08:15)
--- NOTE | 2021-02-06 11:47 | Hospitalist Progress Note ---
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 Is being managed for the following: #. Hyponatremia: Recent vomiting prior to admission-? doxycycline as a cause which has now resolved. Hyponatremia resolved Salt tabs and urea already stopped Fluid restriction at 1.8L Hyponatremia resolved #. RAMEZ over CKD3: Baseline creatinine around 1.0 Creatinine up to 1.67 01/28, Cr down to 1.2 Monitor #. Lyme disease: Recently diagnosed with Lyme during a screening for neuropathy; started on 21 day course of doxycycline as outpatient. As a result of vomiting at presentation, doxycycline was transition to IV ceftriaxone. Again transitioned him back to doxycycline to ensure he is tolerating this prior to discharge. DC with remaining days of Doxy upon discharge. #. COVID-19: Patient is testing positive for COVID-19 with a prior history of infection back in Aug, 2020. As this has been greater than 90 days since last known infection, may possibly represent reinfection. Currently the patient is oxygenating well on room air and does not qualify for any treatments at this time. #. Hypotension: On and off low blood pressure readings BP currently stable to elevated Resume home lisinopril #. Coronary artery disease: Continue medical management including atorvastatin, Plavix, Toprol-XL . #Nolvia Intertrigo topical ketoconazole #. DVT prophylaxis: Lovenox Conditional code where CPR is not desired, however, mechanical ventilation is okay. Disposition- PT recommending rehab Per Previous Provider, patient's daughter wanted to take him home and declines home health as well but later changed her mind to have him go to rehab Possible dc over the weekend to [place] per CM Admission and Anticipated Discharge Date Admission Date: January 23, 2021 Subjective 85-year-old man with history of B-cell lymphoma status post radiation, CAD status post stent, CKD, dementia, CVA, hypertension, hyperlipidemia, Covid pneumonia and August 2020, thoracic aortic aneurysm, left eye blindness, AST presented to the ER with nausea, vomiting. Recent diagnosis of Lyme disease 2 days prior to presentation. Found to have hyponatremia, RAMEZ on CKD and tested positive for COVID-19. Patient seen and examined this morning. Denies any complaints Review of Systems Review of Systems: At least ten systems were reviewed and negative except as indicated in HPI above. Constitutional: no fatigue and no anorexia Respiratory: no cough and no dyspnea Cardiovascular: no chest pain, no dyspnea, no palpitations and no li ghtheadedness Gastrointestinal: no abdominal pain, no nausea and no vomiting Genitourinary: no dysuria, no difficulty urinating or no urinary frequency Neurologic: no generalized weakness, no dizziness and no headache(s) Psychiatric: no depression and no anxiety Physical Exam Constitutional: + well hydrated; no acute distress ENMT: external ear and nose normal, oropharynx normal Respiratory: normal respiratory effort, lungs clear to auscultation Cardiovascular: RRR S1 S2 Gastrointestinal (Abdomen): normal bowel sounds, soft, nontender, no hepatosplenomegaly Skin: Erythematous rash on buttock and perineal area with satelite lesions Neurologic: AOx1, cooperative Results & Data Results & Data ([facility]) Vital Signs (Past 12 Hours) Vital Signs Temp Pulse Resp BP Pulse Ox 02/06/21 08:03 36.7 C 58 L 18 131/70 100 Laboratory Results Abnormal lab results 02/06/21 Range/Units 05:47 BUN 31 H (7-18) mg/dl BUN/Creatinine Ratio 25.6 H (10-20)
[2021-02-06] MEDS: KETOCONAZOLE 2% CR 15 GM TUBE EXT SCH ×2 (11:50→20:27)
[2021-02-06] MEDS: ENOXAPARIN INJ 40 MG/0.4 ML SYR SQ SCH (15:43)
[2021-02-06] MEDS: MELATONIN 3 MG TAB PO PRN (20:27)
[2021-02-07] MEDS ORDERED: lisinopril 10 MG TAB PO SCH (09:00)
[2021-02-07] MEDS ORDERED: DOXYCYCLINE HYCLATE 100 MG CAP PO STA (12:05)
--- NOTE | 2021-02-07 12:08 | Discharge Summary ---
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 Per daughter patient also appeared confused. Vomiting started 3 days ago, patient was diagnosed with Lyme disease 2 days ago. He was started on doxycycline yesterday and patient only took 2 tablets. At bedside patient denied nausea, abdominal pain, chest pain, shortness of breath. He stated that he feels fine and would like to go home. Per Daughter since patient had CVA he is having short-term memory problems. In the ER patient was given 500 cc of NS Admission Exam Per Admitting Provider General:.NAD, well developed, well nourished, average body habitus HEENT:.L conjunctiva has a white film, Normal R conjunctiva Lungs:.No signs of respiratory distress, CTA, no wheezing or crackles Heart:.Normal S1, S2, no murmur Abdominal:.ND, Soft, NT, normal BS MSK:.No deformities of UE and LE, No leg edema Neuro exam: CN II-XII intact, normal motor strength Psych:.AAOx2 (not to time), normal affect Principal Diagnosis Hyponatremia Acute on Chronic kidney disease Recent Lyme disease Positive COVID test Candidal intertrigo Discharge Exam Constitutional + well hydrated; no acute distress ENMT external ear and nose normal, oropharynx normal Respiratory normal respiratory effort, lungs clear to auscultation Cardiovascular RRR S1 S2 Gastrointestinal (Abdomen) normal bowel sounds, soft, nontender, no hepatosplenomegaly Musculoskeletal No pedal edema Skin Erythematous rash on buttock and perineal area with satelite lesions Neurologic AOX1 (person), cooperative, poor insight Discharge Data Allergies Allergy/AdvReac Type Severity Reaction Status Date / Time No Known Allergies Allergy Unknown Verified 01/23/21 11:29 Consultations 01/23/21 13:32 ED Decision to Admit Stat 01/25/21 08:37 Consult Nephrology Routine Ordered Studies 01/23/21 10:57 CT head/brain wo con Stat The paranasal sinuses and mastoid air cells are clear. The calvarium and skull base are intact. There is no mass, hematoma, midline shift, acute infarct. White matter hypodensity is nonspecific but suggestive of microvascular ischemic change. The ventricles and sulci demonstrate mild age-related involutional changes. Old small right frontal lobe infarct, unchanged. Impression: No significant change compared to the prior study. No acute intracranial abnor mality. 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 Was managed for the following: #. Hyponatremia: Recent vomiting prior to admission-? doxycycline as a cause Na was 123 on presentation Was comanaged with the Leaflet Or Newspaper Deliverer Was managed with salt tabs, urea and fluid restriction Hyponatremia resolved Discharged on daily fluid restriction at 1.8L #. RAMEZ over CKD3: Baseline creatinine around 1.0 Creatinine increased up to 1.67 during hospital stay 01/28/21 RAMEZ resolved #. Lyme disease: Recently diagnosed with Lyme during a screening for neuropathy; started on 21 day course of doxycycline as outpatient. As a result of vomiting at presentation, doxycycline was transition to IV ceftriaxone initially Again transitioned him back to doxycycline to ensure he is tolerating this prior to discharge. Discharged to complete remaining days #. COVID-19: Patient tested positive for COVID-19 with a prior history of infection back in Aug, 2020. As this has been greater than 90 days since last known infection, may possibly represent reinfection. Patient had no symptoms and on room air. Required no COVID specific therapies. #. Coronary artery disease: Continue medical management including atorvastatin, Plavix, Toprol-XL . #Nolvia Intertrigo Continue topical ketoconazole Discharged to SNF Total Time Total Time Spent Total Time Spent (In Minutes): 45 Total Time Includes: Examination of the Patient, Discharge Planning and Medication Reconciliation Discharge Plan Discharge Items Patient Disposition: Transfer Correction Fac Reason For Visit: Nausea and vomiting Discharge Diagnosis: Hyponatremia Acute on Chronic kidney disease Recent Lyme disease Positive COVID test Candidal intertrigo Activity: As commented below Activity Comment: Per Physical therapist Non-emergency contact: Primary Care Provider Call non-emergency contact if: you have any medication questions and your symptoms worsen Follow-up/Referrals: Joaquin Ramirez DO [Primary Care Provider] - ( ) Diet: Heart Healthy Fluids: 1800ml (7 cups) Addtl Attending Provider Instructions: Mr. Hall. Astudillo presented to the hospital with nausea and vomiting. You were evaluated and found to have low sodium levels, acute on chronic kidney disease. You were managed for this and your symptoms resolved. You tested positive for COVID but had no symptoms. You have been off isolation. You are being discharged on 3 more days of doxycycline to complete 21 day therapy. Please ensure follow up with your Primary Doctor. It was a pleasure taking care of you. Pending Studies at Discharge: No Stand-Alone Forms: My [facility] Skilled Items Patient informed of condition?: Yes DNR: No Discharge Level of Care: Skilled Communicable Disease: No Discharge Prognosis: Stable Lines: None Urinary Catheter: No Medications and DC Order Prescriptions: New ketoconazole 2 % Cream 1 applic EXT BID Qty: 30 RF: 0 Continued nitroglycerin [Nitrostat] 0.4 mg Tablet, Sublingual 0.4 mg Sublingual DIRECTED PRN (Reason: Chest Pain) RF: 0 multivitamin Tablet 1 tab PO DAILY Qty: 30 RF: 0 atorvastatin 80 mg Tablet 80 mg PO QAM Qty: 30 RF: 0 clopidogrel 75 mg tablet 75 mg PO DAILY Qty: 30 RF: 0 pantoprazole 40 mg tablet,delayed release (DR/EC) 40 mg PO DAILY Qty: 30 RF: 0 lisinopril 10 mg tablet 10 mg PO DAILY Qty: 30 RF: 0 metoprolol succinate [Toprol XL] 25 mg Tablet Extended Release 24 Hr 12.5 mg PO DAILY Qty: 30 RF: 0 doxycycline hyclate [Vibramycin] 100 mg capsule 100 mg PO BID Qty: 6 RF: 0 Discharge Orders: Discharge Order (Routine); Ordered 02/07/21 Ordered By: Adina Valles/Other Patient Handouts: ED Lyme Disease Admission Data Admit Date/Time: 01/23/21 12:43 Attending Provider: Adina Moore I. Admit Provider: Michael Lainez Primary Care Provider: Joaquin Ramirez Other Providers: Michael Lainez ; Jose C Narayan ; [facility] ; Kathya Cardona Other Interventions: Discharge Summary Assessment (RN) Last Done: 02/07/21 17:22
[2021-02-07] MEDS: ATORVASTATIN 40 MG TAB PO SCH (12:18)
[2021-02-07] MEDS: CLOPIDOGREL BISULFATE 75 MG TAB PO SCH (12:19)
[2021-02-07] MEDS: KETOCONAZOLE 2% CR 15 GM TUBE EXT SCH (12:20)
[2021-02-07] MEDS: METOPROLOL SUCC 25MG EXT REL TAB PO SCH (12:20)
[2021-02-07] MEDS: MULTIVITAMIN TAB PO SCH (12:21)
[2021-02-07] MEDS: PANTOprazole 40 MG TAB PO SCH (12:22)
[2021-02-07] MEDS: POLYETHYLENE (MIRALAX) 17 GM PACK PO SCH (12:36)
[2021-02-07] MEDS: ENOXAPARIN INJ 40 MG/0.4 ML SYR SQ SCH (16:42)
[2021-02-07] MEDS ORDERED: DOXYCYCLINE HYCLATE 100 MG CAP PO SCH (21:00)
== END 2021-02-07 18:30 | DRG 640 ==
LOC: ED 08:54 → 2E 12:43 → SUATTDRO 12:43 → 2E 14:25 → 3W 02-01 12:27 → 3E 02-06 16:01

== ENCOUNTER 2021-12-30 01:23 | Inpatient (IN) ==
[2021-12-30] MEDS ORDERED: SODIUM CHLORIDE 0.9% 500 ML IV SCH (02:00)
[2021-12-30 02:16] LABS: Basophils # (auto) 0.01 K/uL (0-0.2); Basophils % (auto) 0.1 %; Eosinophils # (auto) 0.06 K/uL (0-0.50); Eosinophils % (auto) 0.5 %; Hematocrit (blood only) 27.9 % (40.1-51.0); Hemoglobin 10.2 g/dl (14.0-18.0); Immature Granulocytes # (auto) 0.06 K/uL (0.00-0.02); Immature Granulocytes % (auto) 0.5 %; Lymphocytes # (auto) 0.92 K/uL (1.2-3.4); Lymphocytes % (auto) 8.3 %; Mean Corpuscular Hemoglobin 31.7 pg (25.0-34.0); Mean Corpuscular Hgb Conc 36.6 g/dL (32.0-36.0); Mean Corpuscular Volume 86.6 fL (80.0-100.0); Mean Platelet Volume 10.4 fL (9.4-12.4); Monocytes # (auto) 0.98 K/uL (0.24-0.82); Monocytes % (auto) 8.9 %; Neutrophils # (auto) 9.03 K/uL (1.4-6.5); Neutrophils % (auto) 81.7 %; Platelet Count 255 K/uL (130-400); RDW Coefficient of Variation 12.6 % (11.5-14.5); Red Blood Count 3.22 M/uL (4.63-6.08); White Blood Count 11.06 K/ul (4.8-10.8)
--- NOTE | 2021-12-30 02:36 | Emergency Department Note ---
History of Present Illness General Chief complaint: Cough Stated complaint: COUGH,now hallucinations Time Seen by Provider: 12/30/21 01:55 History of Present Illness This 86-year-old presents to the ER complaining of cough, increasing weakness and hallucinations with frequent falls Location: Generalized Quality: Weak Severity: Moderate Duration: Past 2 weeks Timing: Started few weeks ago Context: Daughter was concerned and brought the patient in Modifying factors: better with rest; worse with activity Patient states that he has been falling more frequently. He fell tonight. He is also having some hallucinations. He has been coughing the past few weeks. He feels weak. Daughter is concerned as he lives at home about his frequent falls. Patient denies chest pain, dyspnea, abdominal pain, vomiting, diarrhea. Home Medications Medication Instructions Recorded Confirmed Type nitroglycerin 0.4 mg sublingual 0.4 mg sublingual DIRECTED PRN 06/09/18 01/23/21 History tablet (Nitrostat) Chest Pain atorvastatin 80 mg tablet 80 mg PO QAM #30 tabs 02/07/21 Rx clopidogrel 75 mg tablet 75 mg PO DAILY #30 tabs 02/07/21 Rx doxycycline hyclate 100 mg capsule 100 mg PO BID #6 caps 02/07/21 Rx (Vibramycin) ketoconazole 2 % topical cream 1 applic EXT BID #30 grams 02/07/21 Rx lisinopril 10 mg tablet 10 mg PO DAILY #30 tabs 02/07/21 Rx metoprolol succinate 25 mg 12.5 mg PO DAILY #30 tabs 02/07/21 Rx tablet,extended release 24 hr (Toprol XL) multivitamin 1 tab PO DAILY #30 tabs 02/07/21 01/23/21 Rx pantoprazole 40 mg tablet,delayed 40 mg PO DAILY #30 tabs 02/07/21 01/23/21 Rx release Allergies Allergy/AdvReac Type Severity Reaction Status Date / Time No Known Allergies Allergy Unknown Verified 01/23/21 11:29 Past Med/Surg History Medical History Carotid artery disease Cerebrovascular disease TIA RUE weakness 02/23/20 Coronary artery disease Do not resuscitate status Per pt's advance directives. 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 Brunner Status post coronary artery stent placement Family History Mother Heart disease Father Myocardial infarction Sister Cancer ? GI Other Diabetes Hypertension Social History Smoking Status: Never smoker Second Hand Exposure: No; Hx Alcohol Use: No Hx Substance Use: No Preferred Language: Maori Communication Ability: Impaired Clock And Watch Hands Dipper Required: No Beliefs That Will Affect Care: None marital status: / Current Living Situation: Alone Current Living Situation Comment: Help from daughter current occupational status: retired How many Children do You have: 2 Feels Safe at Home: Yes Assistive Devices: Glasses and Walker Review of Systems A total of 10 systems reviewed and were otherwise negative Physical Exam Vital Signs Vital Signs - 24 hr 12/30/21 01:28 12/30/21 02:08 12/30/21 02:08 Temperature 36.4 C L Temperature Source Temporal Artery Scan Pulse Rate 63 55 L Pulse Rate [Apical] 61 Respiratory Rate 18 20 20 Respiratory Effort / Characteristics Non-Labored Spontaneous Respiratory Depth Normal Respiratory Pattern Regular Blood Pressure 151/76 H Blood Pressure [Right Arm] 165/72 H Blood Pressure Mean 101 Blood Pressure Mean [Right Arm] 103 Pulse Oximetry 97 97 97 Oxygen Delivery Method Room Air Room Air Sepsis Recent Fever Within 48 Hours No Sepsis New/Unexplained Change in Mental Status No Sepsis Action Taken by Nursing No Action Required VITALS: Vitals are noted on the nurse's note and reviewed by myself. Vital signs stable. GENERAL: Pleasant elderly male answering questions appropriately, in no acute distress, nondiaphoretic, well-developed well-nourished. SKIN: The skin was without rashes, erythema, edema, or bruising. There is no tenting of the skin. Capillary reflex less than 2 seconds. HEAD: Normocephalic atraumatic. EARS: External auditory canals clear, EYES: Pupils equal round and reactive to light and accommodation. Conjunctivae without injection, sclerae without icterus. Extraocular movements intact. NOSE: Patent, turbinates without inflammation or discharge. MOUTH: Mucous membranes moist. Pharynx without erythema or exudate. Uvula midline. Airway patent. Tongue does not deviate. NECK: Supple without nuchal rigidity. No lymphadenopathy. No thyromegaly. Cervical spine is nontender. No JVD. HEART: Regular rate and rhythm LUNGS: Clear to auscultation bilaterally without wheezes, rales or rhonchi. No retractions or accessory muscle use. ABDOMEN: Positive bowel sounds x 4. Normal tympanic percussion. Soft, nontender, without masses or organomegaly. Blandon sign negative. No guarding or rebound tenderness. No CVA tenderness MUSCULOSKELETAL: No muscle atrophy, erythema, or edema noted. NEURO: Patient was alert and oriented to person place and time. Normal sensation to light and sharp touch. No focal neurological deficits. Course Administered Medications Discontinued Medications Azithromycin (Azithromycin 250 Mg Tab) 500 mg PO NOW ONE Stop: 12/30/21 02:53 Last Admin: 12/30/21 03:16 Dose: 500 mg Documented By: EILEEN Sodium Chloride (Nss) 500 mls @ 999 mls/hr IV .Q31M BHARATH Stop: 12/30/21 02:30 Last Infusion: 12/30/21 03:04 Dose: 0 mls/hr Documented By: Admin: 12/30/21 02:11 Dose: 999 mls/hr Documented By: EILEEN Ceftriaxone Sodium (Rocephin) 2,000 mg in 70 mls @ 140 mls/hr IV NOW STA Stop: 12/30/21 03:21 Last Admin: 12/30/21 03:16 Dose: 140 mls/hr Documented By: EILEEN Ioversol (Optiray 300 500ml) 125 ml IV ONCE ONE Stop: 12/30/21 03:04 Last Admin: 12/30/21 03:03 Dose: 112 ml Documented By: NOEMI Medical Decision Making Medical Records Attestation: I reviewed the patient's medical records. Home Medications Current Medication List: was personally reviewed by me Laboratory Data Attestation: I reviewed the patient's lab results. Result diagrams: 12/30/21 01:52 12/30/21 01:52 Lab Results 12/30/21 12/30/21 12/30/21 Range/Units 01:52 01:52 01:52 WBC 11.06 H (4.8-10.8) K/ul RBC 3.22 L (4.63-6.08) M/uL Hgb 10.2 L (14.0-18.0) g/dl Hct 27.9 L (40.1-51.0) % MCV 86.6 (80.0-100.0) fL MCH 31.7 (25.0-34.0) pg MCHC 36.6 H (32.0-36.0) g/dL RDW Std Deviation 40.0 (36.4-46.3) fL RDW Coeff of Roderick 12.6 (11.5-14.5) % Plt Count 255 (130-400) K/uL MPV 10.4 (9.4-12.4) fL Immature Gran % (Auto) 0.5 % Neut % (Auto) 81.7 % Lymph % (Auto) 8.3 % [place] % (Auto) 8.9 % Eos % (Auto) 0.5 % Baso % (Auto) 0.1 % Neut # (Auto) 9.03 H (1.4-6.5) K/uL Lymph # (Auto) 0.92 L (1.2-3.4) K/uL [place] # (Auto) 0.98 H (0.24-0.82) K/uL Eos # (Auto) 0.06 (0-0.50) K/uL Baso # (Auto) 0.01 (0-0.2) K/uL Immature Gran # (Auto) 0.06 H (0.00-0.02) K/uL Sodium 124 L (136-145) mmol/L Potassium 4.5 (3.5-5.1) mmol/L Chloride 93 L (98-107) mmol/L Carbon Dioxide 24 (21-32) mmol/L Anion Gap 7 (3-11) BUN 16 (6-23) mg/dl Creatinine 1.24 (0.6-1.4) mg/dl Est Cr Clr Drug Dosing Not Reportable Est GFR ( Amer) 61.1 ml/min Est GFR (Non-Af Amer) 52.7 ml/min BUN/Creatinine Ratio 12.9 (10-20) Glucose 117 H (70-99(Fasting)) mg/dl Calcium 9.2 (8.5-10.1) mg/dl Magnesium 2.0 (1.7-2.4) mg/dl Total Bilirubin 0.8 (0.2-1.0) mg/dl AST 28 (13-39) U/L ALT 24 (7-52) U/L Alkaline Phosphatase 72 (34-104) U/L Total Creatine Kinase 149 (30-223) U/L Troponin I High Sens 8.3 (0-20) pg/ml Total Protein 7.0 (6.0-8.3) gm/dl Albumin 4.3 (3.4-5.0) gm/dl Globulin 2.7 (2.5-4.0) gm/dl Albumin/Globulin Ratio 1.6 (0.9-2) TSH 4.118 (0.300-4.500) uIu/ml Adenovirus (PCR) (NotDetected) B. pertussis DNA (PCR) (NotDetected) B.parapertussis DNA PCR (NotDetected) C. pneumoniae DNA (PCR) (NotDetected) Coronavirus OC43 (PCR) (NotDetected) Coronavirus HKU1 (PCR) (NotDetected) Coronavirus 229E (PCR) (NotDetected) SARS-CoV-2 (PCR) (NotDetected) Coronavirus NL63 (PCR) (NotDetected) Human Metapneumovir PCR (NotDetected) Influenza Type A (PCR) (NotDetected) Influenza Type B (PCR) (NotDetected) M. pneumoniae (PCR) (NotDetected) Parainfluenza 1 (PCR) (NotDetected) Parainfluenza 2 (PCR) (NotDetected) Parainfluenza 3 (PCR) (NotDetected) Parainfluenza 4 (PCR) (NotDetected) RSV (PCR) (NotDetected) Entero/Rhino (PCR) (NotDetected) 12/30/21 Range/Units 02:04 WBC (4.8-10.8) K/ul RBC (4.63-6.08) M/uL Hgb (14.0-18.0) g/dl Hct (40.1-51.0) % MCV (80.0-100.0) fL MCH (25.0-34.0) pg MCHC (32.0-36.0) g/dL RDW Std Deviation (36.4-46.3) fL RDW Coeff of Roderick (11.5-14.5) % Plt Count (130-400) K/uL MPV (9.4-12.4) fL Immature Gran % (Auto) % Neut % (Auto) % Lymph % (Auto) % [place] % (Auto) % Eos % (Auto) % Baso % (Auto) % Neut # (Auto) (1.4-6.5) K/uL Lymph # (Auto) (1.2-3.4) K/uL [place] # (Auto) (0.24-0.82) K/uL Eos # (Auto) (0-0.50) K/uL Baso # (Auto) (0-0.2) K/uL Immature Gran # (Auto) (0.00-0.02) K/uL Sodium (136-145) mmol/L Potassium (3.5-5.1) mmol/L Chloride (98-107) mmol/L Carbon Dioxide (21-32) mmol/L Anion Gap (3-11) BUN (6-23) mg/dl Creatinine (0.6-1.4) mg/dl Est Cr Clr Drug Dosing Est GFR ( Amer) ml/min Est GFR (Non-Af Amer) ml/min BUN/Creatinine Ratio (10-20) Glucose (70-99(Fasting)) mg/dl Calcium (8.5-10.1) mg/dl Magnesium (1.7-2.4) mg/dl Total Bilirubin (0.2-1.0) mg/dl AST (13-39) U/L ALT (7-52) U/L Alkaline Phosphatase (34-104) U/L Total Creatine Kinase (30-223) U/L Troponin I High Sens (0-20) pg/ml Total Protein (6.0-8.3) gm/dl Albumin (3.4-5.0) gm/dl Globulin (2.5-4.0) gm/dl Albumin/Globulin Ratio (0.9-2) TSH (0.300-4.500) uIu/ml Adenovirus (PCR) Not Detected (NotDetected) B. pertussis DNA (PCR) Not Detected (NotDetected) B.parapertussis DNA PCR Not Detected (NotDetected) C. pneumoniae DNA (PCR) Not Detected (NotDetected) Coronavirus OC43 (PCR) Not Detected (NotDetected) Coronavirus HKU1 (PCR) Not Detected (NotDetected) Coronavirus 229E (PCR) Not Detected (NotDetected) SARS-CoV-2 (PCR) DETECTED A* (NotDetected) Coronavirus NL63 (PCR) Not Detected (NotDetected) Human Metapneumovir PCR Not Detected (NotDetected) Influenza Type A (PCR) Not Detected (NotDetected) Influenza Type B (PCR) Not Detected (NotDetected) M. pneumoniae (PCR) Not Detected (NotDetected) Parainfluenza 1 (PCR) Not Detected (NotDetected) Parainfluenza 2 (PCR) Not Detected (NotDetected) Parainfluenza 3 (PCR) Not Detected (NotDetected) Parainfluenza 4 (PCR) Not Detected (NotDetected) RSV (PCR) Not Detected (NotDetected) Entero/Rhino (PCR) Not Detected (NotDetected) Imaging Data Attestation: I personally reviewed and interpreted this imaging study as follows: MDM Narrative Prior records/ancillary studies reviewed and summarized above. Nursing notes reviewed. Additional history obtained from family. The patient's history was concerning for weakness, frequent falls, head injury, cough. Differential diagnosis: Etiologies such as metabolic, infection, hypo/hyperglycemia, electrolyte abnormalities, cardiac sources, intracerebral event, toxicologic, neurologic, as well as others were entertained. Physical examination: As above. ER treatment provided: IV Lock An order was placed for continuous cardiac monitoring. The monitor shows a rate of 50-100 with a sinus rhythm. IV fluids, Rocephin, Zithromax On reassessment the patient felt better. Diagnostics interpretation by me: ECG: Ordered for weakness EKG: Normal sinus, poor baseline, first-degree AV block, rate of 63. Impression normal sinus rhythm with first-degree AV block interpreted by myself I think arrhythmia is unlikely. EKG shows normal sinus rhythm with no interval abnormalities such as QT prolongation or WPW. There are no findings to suggest Brugada syndrome. Cardiac monitoring in the emergency department reveals no tachycardic or bradycardic dysrhythmia. Hypertrophic cardiomyopathy was considered but there are no clear historical elements pointing toward this. EKG is not suggestive. The QRS voltage is not extremely large and there are no suggestive Q waves. The labs revealed hyponatremia and osmolarity levels were ordered Positive COVID, leukocytosis Imaging studies: CT C SPINE: No evidence of cervical fracture or malalignment. Subtle anterior wedging noted at T1. This may reflect an old compression fracture deformity of approximately 10%. Nonetheless, clinical correlation is recommended to assess for upper thoracic region pain/tenderness which if present would suggest an acute T1 fracture Radiologist: Alejo Truong MD Preliminary Findings Only See Final Report For Complete Findings CT HEAD: No ICH, mass effect or edema. No evidence of acute cortical stroke. Stable right frontal encephalomalacia Periventricular small vessel ischemic change. Visualized sinuses and mastoid air cells are clear. Radiologist: Alejo Truong MD CTA CHEST: Ascending thoracic aortic aneurysm measures 4.6 x 4.8 cm without dissection Negative for PE Patchy multifocal groundglass infiltrates may reflect pneumonia, coronavirus pneumonia not excluded A more dense process likely consolidation in a perihilar location on the right likely reflects dense pneumonia. Follow-up recommended to ensure complete resolution of findings Radiologist: Alejo Truong MD Consultation: A consultation was placed with the hospitalist. The case was discussed and diagnostics were reviewed. The patient was evaluated in the ER for further treatment. Exam and history seem consistent with covid pneumonia with increasing falls hallucinations and hyponatremia. Patient had concerns for bacterial pneumonia on x-ray and on CAT scan. He was treated for this also. Osmolarity levels were sent. Medicine was consulted. Patient will be evaluated for admission. He was started on antibiotics. By the evaluation outlined above emergent etiologies such as cardiac joanna rces, intracerebral event, toxologic, neurologic, abnormalities blood glucose, metabolic, as well as others were deemed relatively unlikely. The pt informed about the findings as listed above. All questions were answered and pleased with the treatment. The chart was completed utilizing [employer] Speech voice recognition software. Grammatical errors, random word insertions, pronoun errors, and incomplete sentences are an occassional consequence of this system due to software limitations, ambient noise, and hardware issues. Any formal questions or concerns about the content, text, or information contained within the body of this dictation should be directly addressed to the physician retail loan originator assistant for clarification. Impression & Plan COVID-19, Acute hyponatremia, Weakness, Fall, Head injury Discharge Plan Visit Data Chief Complaint: Cough Stated Complaint: COUGH,now hallucinations ED Provider: Hayes Hyatt ED Midlevel Provider: Morena Pearson Discharge Problem: COVID-19, Acute hyponatremia, Weakness, Fall, Head injury Patient Disposition: Admitted As Inpatient Condition: Fair Forms Stand Alone Forms: [facility] Prescriptions Prescriptions: No Action nitroglycerin [Nitrostat] 0.4 mg Tablet, Sublingual 0.4 mg Sublingual DIRECTED PRN (Reason: Chest Pain) ketoconazole 2 % Cream 1 applic EXT BID Qty: 30 0RF Rx Instructions: Apply to rash on perineum multivitamin Tablet 1 tab PO DAILY Qty: 30 0RF atorvastatin 80 mg Tablet 80 mg PO QAM Qty: 30 0RF clopidogrel 75 mg tablet 75 mg PO DAILY Qty: 30 0RF pantoprazole 40 mg tablet,delayed release (DR/EC) 40 mg PO DAILY Qty: 30 0RF lisinopril 10 mg tablet 10 mg PO DAILY Qty: 30 0RF metoprolol succinate [Toprol XL] 25 mg Tablet Extended Release 24 Hr 12.5 mg PO DAILY Qty: 30 0RF doxycycline hyclate [Vibramycin] 100 mg capsule 100 mg PO BID Qty: 6 0RF Referrals Referrals: Joaquin Ramirez DO [Primary Care Provider] -
[2021-12-30 02:38] LABS: Alanine Aminotransferase 24 U/L (7-52); Albumin Globulin Ratio 1.6 (0.9-2); Albumin Level 4.3 gm/dl (3.4-5.0); Alkaline Phosphatase 72 U/L (34-104); Anion Gap 7 (3-11); Aspartate Aminotransferase 28 U/L (13-39); BUN Creatinine Ratio 12.9 (10-20); Bilirubin,Total 0.8 mg/dl (0.2-1.0); Blood Urea Nitrogen 16 mg/dl (6-23); Calcium 9.2 mg/dl (8.5-10.1); Carbon Dioxide 24 mmol/L (21-32); Chloride 93 mmol/L (98-107); Creatine Kinase 149 U/L (30-223); Est GFR (African American) 61.1 ml/min; Est GFR (Non-African American) 52.7 ml/min; Globulin 2.7 gm/dl (2.5-4.0); Glucose 117 mg/dl (70-99(Fasting)); Potassium 4.5 mmol/L (3.5-5.1); Sodium 124 mmol/L (136-145)
[2021-12-30] MEDS ORDERED: AZITHROMYCIN 250 MG TAB PO ONE (02:52)
[2021-12-30] MEDS ORDERED: cefTRIAXone SODIUM 2,000 MG/70 ML BAG IV STA (02:52)
[2021-12-30] MEDS ORDERED: OPTIRAY 300 500mL IV ONE (03:03)
[2021-12-30 03:18] LABS: Adenovirus PCR Not Detected (NotDetected); Bordetella parapertussis PCR Not Detected (NotDetected); Bordetella pertussis PCR Not Detected (NotDetected); Chlamydia pneumoniae PCR Not Detected (NotDetected); Coronavirus 229E PCR Not Detected (NotDetected); Coronavirus HKU1 PCR Not Detected (NotDetected); Coronavirus NL63 PCR Not Detected (NotDetected); Coronavirus OC43PCR Not Detected (NotDetected); Human Metapneumovirus PCR Not Detected (NotDetected); Influenza A PCR Not Detected (NotDetected); Influenza B PCR Not Detected (NotDetected); Mycoplasma pneumoniae PCR Not Detected (NotDetected); Parainfluenza Virus 1 PCR Not Detected (NotDetected); Parainfluenza Virus 2 PCR Not Detected (NotDetected); Parainfluenza Virus 3 PCR Not Detected (NotDetected); Parainfluenza Virus 4 PCR Not Detected (NotDetected); Respiratory Syncytial VirusPCR Not Detected (NotDetected); Rhinovirus/Enterovirus PCR Not Detected (NotDetected)
[2021-12-30 03:27] LABS: Troponin I High Sensitivity 8.3 pg/ml (0-20)
[2021-12-30 03:49] LABS: Coronavirus CoV-2 (COVID19)PCR DETECTED (NotDetected)
--- NOTE | 2021-12-30 06:10 | History and Physical Report ---
DATE OF ADMISSION: 12/30/2021 CHIEF COMPLAINT: Cough. HISTORY OF PRESENT ILLNESS: This is an 86-year-old male with past medical history significant for B-cell lymphoma, status post radiation; history of CAD, status post stent; chronic kidney disease; history of dementia; history of CVA without any residual weakness; history of hypertension; hyperlipidemia; history of COVID pneumonia in August 2020; history of thoracic aortic aneurysm; history of left eye blindness; mild aortic regurgitation, who lives at home with his daughter, ambulates with a walker, was brought in because of ongoing cough for the last 2 weeks. As his cough is not getting better and the patient is getting weaker and balance is wobbly while ambulating, daughter brought him into the hospital. The patient was found to be again COVID positive and sodium was 124. CAT scan showing multifocal pneumonia. The patient coughing in the room, no phlegm. Denies any headache. No neck pain, no chest pain, no shortness of breath, no nausea, no vomiting. Appetite is okay. Complains of slight mild left lower quadrant abdominal pain. He had one episode of diarrhea today and yesterday he had one episode of nausea, not micturating much, no swelling in the legs. Hemodynamically stable, saturating okay on room air. ALLERGIES: No known drug allergies. PAST MEDICAL HISTORY: As mentioned above. PAST SURGICAL HISTORY: Colonoscopy, EGD. MEDICATIONS: The patient is on atorvastatin 80 mg p.o. a.m., Plavix 75 mg p.o. daily, clotrimazole 1 application b.i.d., lisinopril 10 mg p.o. daily, metoprolol succinate 12.5 mg p.o. daily, multivitamin 1 tablet p.o. daily, Nitrostat 0.4 mg sublingual p.r.n., Protonix 40 mg p.o. daily. FAMILY HISTORY: Significant for sister has GI cancer, father has GA, sister has brain abscess. SOCIAL HISTORY: Currently lives with daughter. No smoking, no alcohol, no drug use. REVIEW OF SYSTEMS: As per HPI. Rest of the review of systems is negative. PHYSICAL EXAMINATION: GENERAL: The patient is of moderate build, not in acute distress. VITAL SIGNS: Temperature 36.4, pulse 56, respiratory rate 22, blood pressure 141/71, oxygen 96% on room air. HEENT: Left eye blindness. Right eye pupils are reactive to light. Oral mucosa moist. NECK: No JVD or neck masses. CARDIOVASCULAR: S1 and S2 heard. Regular rate and rhythm. No murmur, no gallop. RESPIRATORY SYSTEM: Normal AP diameter. No accessory muscle use. No wheezing, no crackles. ABDOMEN: Soft, bowel sounds present, nontender, no distention. CENTRAL NERVOUS SYSTEM: Alert and awake. Speech is clear. No facial droop. Obeys simple commands. Moves extremities. EXTREMITIES: No edema, no erythema. LABORATORY DATA: WBC 11.06, hemoglobin 10.2, hematocrit 27.9, platelets 255. Sodium 124, potassium 4.5, chloride 93, bicarbonate 24, BUN 16, creatinine 1.2, serum glucose 117, serum osmolality 266, calcium 9.2, magnesium 2, total bilirubin 0.8, AST 28, ALT 24, alkaline phosphatase 72, total creatine kinase 149. Troponin I high sensitivity 8.3. TSH 4.8, respiratory BioFire SARS-CoV-2 positive. IMAGING DATA: CT of the chest, preliminary report shows no PE. Multifocal pneumonia. CT of the head unremarkable. Cervical spine CT unremarkable. EKG: Sinus rhythm with first-degree AV block with PACs at a rate of 63, no acute ST changes seen. ASSESSMENT AND PLAN: This is an 86-year-old male who presents with ongoing cough and positive for COVID. 1. Coughing for 2 weeks, CT scan preliminary report showing multifocal pneumonia. COVID came back positive. The patient had COVID in the past in August 2020. The patient is not vaccinated, saturating okay on room air. Empirically started on Rocephin and doxycycline for pneumonia. Monitor in the hospital. 2. Hyponatremia, possibly from respiratory illness /SIADH, could be from volume depletion. Gentle fluids. Follow BMP q. 6 hours. Nephro consulted. 3. History of coronary artery disease, status post stent. Continue home Plavix, statin and beta adonis. 4. Hypertension: Continue lisinopril and beta adonis. 5. Gastroesophageal reflux disease: Continue Protonix. 6. Hyperlipidemia: Continue statin. 7. Mild dementia. Monitor for delirium. 8. History of thoracic aortic aneurysm. CAT scan showing 4.6-4.8 cm without dissection. Needs followup. 9. Prediabetes. Follow the labs. Follow the blood sugars. 10. History of cerebrovascular accident: On aspirin, statin. 11. History of left eye blindness. 12. Chronic kidney disease, stage III. Presents with creatinine of 1.2. Will follow the labs. 13. History of B-cell lymphoma, status post radiation. 14. Deep venous thrombosis prophylaxis: Placed on Lovenox. DISPOSITION: Closely monitor in the med tele. PT/OT prior to discharge. Social service to help with discharge planning. CODE STATUS: DNR/DNI as per discussion with the daughter. Job ID: [id number] [facility]
[2021-12-30] MEDS ORDERED: NITROGLYCERIN SL 0.4 MG/TAB TAB SL PRN (06:11)
[2021-12-30] MEDS ORDERED: SODIUM CHLORIDE 0.9% 1000ML 1,000 ML IV SCH (06:11)
[2021-12-30] MEDS ORDERED: ACETAMINOPHEN 325 MG TAB PO PRN (06:11)
[2021-12-30] MEDS ORDERED: POLYETHYLENE (MIRALAX) 17 GM PACK PO PRN (06:11)
[2021-12-30] MEDS ORDERED: Patient's HEIGHT &/or WEIGHT Needed SCH (06:30)
--- NOTE | 2021-12-30 07:13 | CT Scan Report ---
HEAD CT NONCONTRAST CT DOSE: HISTORY: fall, weak TECHNIQUE: Multiaxial CT images of the head were performed without the use of intravenous contrast. A utomated exposure control was utilized for this study. A dose lowering technique was utilized adheri ng to the principles of ALARA. Comparison: Head CT 02/10/2021. Findings: The paranasal sinuses and mastoid air cells are clear. The calvarium and skull base are int act. There is no mass, hematoma, midline shift, acute infarct. White matter hypodensity is nonspecifi c but suggestive of microvascular ischemic change. The ventricles and sulci demonstrate mild age-rela ev involutional changes. Old small right frontal lobe infarct. Impression: No significant change compared to the prior study. No acute intracranial abnormality. ACT 112: Negative or not required by law. Electronically signed by: Gildardo Alves M.D. 12/30/2021 7:11 AM
--- NOTE | 2021-12-30 07:19 | CT Scan Report ---
CT SCAN OF THE CERVICAL SPINE CLINICAL HISTORY: Fall. COMPARISON STUDY: CT angiogram of the neck dated 02/23/2020. TECHNIQUE: CT scan of the cervical spine is performed from the skull base to the upper thoracic spine . Images are reviewed in the axial, sagittal, and coronal planes. IV contrast was not administered fo r this examination. A dose lowering technique was utilized adhering to the principles of ALARA. CT DOSE: 1038.61 mGy.cm FINDINGS: Skeletal structures: The skeletal structures are osteopenic. There is no evidence of fracture or subl uxation involving the cervical spine. Vertebral body height and alignment are maintained. There is s traightening of the cervical lordosis with reversal centered at C4-C5. Anterior osteophytes are seen throughout. The odontoid process and lateral masses are intact. The atlantoaxial articulation is pres erved. The spinous processes appear intact. There is moderate multilevel cervical spondylosis. Uncove rtebral and facet arthropathy contribute to neural foraminal narrowing at several levels. Minimal ant erior wedging of T1 is unchanged from previous. Intervertebral discs: There is moderate to advanced disc space narrowing at all cervical levels betwe en C3-C4 and C6-C7. Central canal: Posterior disc osteophyte complexes are seen at all cervical levels between C3-C4 and C6-C7. This likely contributes to multilevel acquired compromise of the central canal. Soft tissues: The prevertebral and paraspinous soft tissues are within normal limits. There is athero sclerotic calcification of the carotid bulbs. Calvarium: The visualized calvarium at the skull base appears intact. Brain parenchyma: Partially visualized brain parenchyma at the skull base is within normal limits not ing age-related involutional change. Sinuses and mastoids: There is mucosal thickening within the ethmoid sinuses. Trace mucosal thickenin g is also seen in the right maxillary antrum. The mastoid air cells are well pneumatized. Lung apices: Clear as visualized. IMPRESSION: 1. There is no evidence of fracture or subluxation involving the cervical spine. 2. Osteopenia and spondylotic change as above. ACT 112: Negative or not required by law. Electronically signed by: Armen Alva M.D. 12/30/2021 7:17 AM
[2021-12-30] MEDS: ENOXAPARIN INJ 40 MG/0.4 ML SYR SQ SCH (07:27)
[2021-12-30] MEDS: DOXYCYCLINE HYCLATE 100 MG CAP PO SCH ×2 (08:50→21:45)
[2021-12-30] MEDS: METOPROLOL SUCC 25MG EXT REL TAB PO SCH (08:50)
[2021-12-30] MEDS: ATORVASTATIN 40 MG TAB PO SCH (08:50)
[2021-12-30] MEDS: CLOPIDOGREL BISULFATE 75 MG TAB PO SCH (08:51)
[2021-12-30] MEDS: PANTOprazole 40 MG TAB PO SCH (08:51)
[2021-12-30] MEDS: KETOCONAZOLE 2% CR 15 GM TUBE EXT SCH ×2 (08:51→21:46)
[2021-12-30] MEDS: MULTIVITAMIN TAB PO SCH (08:52)
--- NOTE | 2021-12-30 08:56 | Electrocardiogram Report ---
Test Reason : Blood Pressure : / mmHG Vent. Rate : 063 BPM Atrial Rate : 063 BPM P-R Int : 250 ms QRS Dur : 102 ms QT Int : 408 ms P-R-T Axes : 051 -28 046 degrees QTc Int : 417 ms Sinus rhythm with 1st degree A-V block with Premature atrial complexes Voltage criteria for left ventricular hypertrophy Abnormal ECG When compared with ECG of 10-FEB-2021 17:14, Premature atrial complexes are now Present Confirmed by Bonilla Bolaños ([id number]) on 12/30/2021 8:56:17 AM Referred By: REFERRED SELF Confirmed By:Bonilla Bolaños
[2021-12-30] MEDS ORDERED: lisinopril 10 MG TAB PO SCH (09:00)
[2021-12-30 09:20] LABS: Basophils # (auto) 0.01 K/uL (0-0.2); Basophils % (auto) 0.1 %; Eosinophils # (auto) 0.05 K/uL (0-0.50); Eosinophils % (auto) 0.5 %; Hematocrit (blood only) 26.4 % (40.1-51.0); Hemoglobin 9.7 g/dl (14.0-18.0); Immature Granulocytes # (auto) 0.05 K/uL (0.00-0.02); Immature Granulocytes % (auto) 0.5 %; Lymphocytes # (auto) 1.03 K/uL (1.2-3.4); Mean Corpuscular Hemoglobin 31.4 pg (25.0-34.0); Mean Corpuscular Hgb Conc 36.7 g/dL (32.0-36.0); Mean Corpuscular Volume 85.4 fL (80.0-100.0); Mean Platelet Volume 10.4 fL (9.4-12.4); Monocytes # (auto) 0.97 K/uL (0.24-0.82); Monocytes % (auto) 9.4 %; Neutrophils # (auto) 8.23 K/uL (1.4-6.5); Neutrophils % (auto) 79.5 %; Platelet Count 247 K/uL (130-400); RDW Coefficient of Variation 12.8 % (11.5-14.5); RDW Standard Deviation 39.8 fL (36.4-46.3); Red Blood Count 3.09 M/uL (4.63-6.08); White Blood Count 10.34 K/ul (4.8-10.8)
--- NOTE | 2021-12-30 09:38 | XRay Report ---
XR chest 1V portable HISTORY: Cough. weakness COMPARISON: Chest 02/10/2021. FINDINGS: No pneumothorax. The heart remains mildly enlarged. There are low lung volumes. There is a new right perihilar lobular density measuring 2.9 cm. Interstitial thickening at the lung bases has p rogressed. No pleural effusions. IMPRESSION: 1. There is a new right perihilar lobular density. Follow-up chest CT recommended to evaluate for a p ossible mass. 2. Progressive interstitial thickening which may be due to the low lung volumes or an interstitial pn eumonitis. 3. Mild cardiomegaly. ACT 112: Negative or not required by law. Electronically signed by: Gildardo Alves M.D. 12/30/2021 9:37 AM
[2021-12-30 09:43] LABS: BUN Creatinine Ratio 13.5 (10-20); Calcium 8.8 mg/dl (8.5-10.1); Creatinine Clr Calc Pharmacy 47.5 ml/min; Est GFR (African American) 69.8 ml/min; Est GFR (Non-African American) 60.2 ml/min; Potassium 4.1 mmol/L (3.5-5.1)
--- NOTE | 2021-12-30 10:00 | CT Scan Report ---
CT ANGIOGRAM OF THE CHEST CLINICAL HISTORY: Cough and dyspnea. COMPARISON STUDY: Chest x-ray dated 12/30/2021. Chest CT dated 06/09/2018. TECHNIQUE: Following the IV administration of 112 cc of Optiray 300, CT angiogram of the chest was pe rformed from the upper abdomen to the thoracic inlet utilizing the pulmonary embolus protocol. Images are reviewed in the axial, sagittal, and coronal planes. 3-D MIPS images are created and assessed. I V contrast was administered without complication. A dose lowering technique was utilized adhering to the principles of ALARA. The examination is significantly degraded by motion artifact. CT DOSE: 384.77 mGy.cm FINDINGS: Thyroid: Imaged portions of the thyroid gland are normal in size and attenuation. Thoracic aorta: There is atherosclerotic calcification of the thoracic aorta. There is mild dilatatio n of the ascending thoracic aorta which measures up to 4.5 cm. This is similar to previous. The remai nder of the thoracic aorta is normal in caliber, and the arch demonstrates standard 3-vessel anatomy. No dissection is seen. Pulmonary vasculature: The main pulmonary arteries are dilated suggesting pulmonary artery hypertensi on. There are no filling defects identified in main, lobar, or segmental pulmonary branches to sugges t pulmonary embolus. The distal segmental and subsegmental branches are not well assessed due to indy on artifact. Heart: The heart is enlarged and without pericardial effusion. The coronary arteries are densely calc ified. Lungs and pleural spaces: Evaluation of the lung parenchyma is compromised by motion artifact. There is an approximately 4 x 4 x 4 cm focus of round airspace consolidation in the perihilar right upper l obe. This is best seen on image #133, and extends to the hilum. A 4 mm right upper lobe pulmonary nod ule is seen on image #157. A 3 mm pulmonary nodule is seen in the right middle lobe on image #112, an d a 4 mm pleural-based nodule at the left lung base as seen on image #62. The subcentimeter nodules a re unchanged from 06/09/2018. There are bilateral fat-containing Bochdalek hernias. Foci of subpleural parenchymal scarring are again seen throughout both lungs. No pleural effusion is identified. The tra romina and central airways are clear. Mediastinum: There 4 enlarged mediastinal lymph nodes. A precarinal node on image #146 measures 4.5 x 2.9 cm. A prevascular node on image #179 measures 8 mm in short axis. Carol: There is likely right hilar adenopathy. The left hilum appears clear. Axillae: There is no axillary lymphadenopathy. Upper abdomen: Cholecystectomy clips are noted. There is a small hiatal hernia. Calcified granulomas are present in the spleen. No adrenal lesion is seen. Skeletal structures: The skeletal structures are osteopenic. No lytic or blastic bony lesions are see n. Degenerative change is noted in the shoulders and thoracic spine. IMPRESSION: 1. There is no evidence of pulmonary embolus in the main, lobar, or segmental pulmonary arteries. 2. There is an approximately 4 cm round focus of masslike consolidation in the perihilar right upper lobe. Although this could represent a round pneumonia, underlying neoplasm is not excluded. Clinical correlation will be required. A follow-up chest CT in 1 month's time is recommended for reassessment. 3. There is likely right hilar adenopathy, as well as significantly enlarged mediastinal nodes. 4. Additional subcentimeter pulmonary nodules are unchanged from 06/09/2018. 5. There is aneurysmal dilatation of the ascending thoracic aorta which measures up to 4.5 cm. 6. Cardiomegaly. 7. Additional findings as above. ACT 112: Positive. There are findings on this exam that require communication between the performing entity and the patient following Patient Test Result Information Act ([place] Act 112) guidelines. Electronically signed by: Armen Alva M.D. 12/30/2021 9:58 AM
--- NOTE | 2021-12-30 10:57 | Consultation Report ---
NEPHROLOGY CONSULTATION NOTE REASON FOR CONSULTATION: Hyponatremia. HISTORY OF PRESENT ILLNESS: The patient is an 86-year-old male who was brought to the hospital yeste rday because of ongoing cough for the last 2 weeks. He was also getting increasingly weaker. In the Emergency Department, the patient was found to be positive for COVID and sodium was also low at 125, after which he was admitted. It is worth noting the patient had COVID pneumonia in August 2020 and rec overed. 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 However, h is most recent sodium were fairly normal. He had a CT scan done, which showed multifocal pneumonia. The patient is not a good historian and he cannot tell me why he was in the hospital and who brought him to the hospital. He is currently getting normal saline. The second set of blood sodium is 125 in about 7 hours apart. Urine test is still pending. Serum osmolarity is slightly low at 266. His b lood pressure is slightly on the high side. He is not on oxygen at this time. ALLERGIES: None. PAST MEDICAL AND SURGICAL HISTORY: Includes history of B-cell lymphoma, status post radiation, histo ry of coronary artery disease, status post stent, chronic kidney disease, history of dementia, histor y of CVA without any residual deficit, hypertension, hyperlipidemia, history of COVID pneumonia in 2020, history of thoracic aortic aneurysm, history of left eye blindness, mild aortic regurgitation , history of hyponatremia in January 2021, colonoscopy, endoscopy. MEDICATIONS: At home includes Lipitor, Plavix, clotrimazole, lisinopril 10 daily, metoprolol, multiv itamin, Nitrostat, Protonix. I did not see any diuretics at home. FAMILY HISTORY: Negative for renal disease or dialysis. SOCIAL HISTORY: Currently lives with his daughter. No smoking, no alcohol, no drugs. He ambulates with a walker. PHYSICAL EXAMINATION: GENERAL: Elderly white male who is of moderate build. He is not in any respiratory distress. He is not on oxygen at this time. VITAL SIGNS: Blood pressure is 174/81, pulse rate 56, temperature 36.6, 96% on room air. HEENT: Mucous membranes are moist. CHEST: Bilateral diminished breath sounds, but very poor inspiratory effort. CVS: S1 and S2 regular. Soft systolic murmur heard. ABDOMEN: Soft, nontender. EXTREMITIES: Show no edema. LABORATORY TESTS: On admission, sodium was 124; 7 hours later, it was 125, BUN is 15, creatinine is 1.11. Serum osmolarity 266. Urine test pending. Hemoglobin 9.7, WBC count 10,000, platelet count [address] angiogram of the chest with IV contrast shows there is no evidence of pulmonary embolism, 4-cm mas s in the right upper lobe, right hilar adenopathy as well as significantly enlarged mediastinal nodes , cardiomegaly. Chest x-ray shows progressive interstitial thickening, mild cardiomegaly. ASSESSMENT AND PLAN: An 86-year-old male who presented to the hospital with progressive cough and wa s found to be positive for COVID and also hyponatremia. I have been consulted for hyponatremia. At this point, we do not have the urine osmolarity back, which means we really cannot tell the exact abelardo ology of the hyponatremia. 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 He wa s managed with a combination of salt tablet, Lasix, urea, but by discharge, his sodium was normal. T he first thing we need is the urine osmolarity and urine sodium, and only after that, we can classify the hyponatremia in 2 different categories. So far with the use of normal saline, sodium has not sravan pped. In fact, it went up from 124 to 125. He is not eating much and he still seems to be somewhat confused, so it is reasonable to continue IV fluids for now. We will do BMP every 8 hours for now. A void thiazide diuretics. I will put him on free water fluid restriction to 1200 mL per day. His blo od pressure is running high, so I do not want to give him salt tablet. We can consider giving urea i f the sodium does not steadily going up. Thank you very much for the consult. Job ID: [id number]
[2021-12-30 12:33] LABS: Appearance Urine Clear (Clear); Bacteria Urine Automated Negative (Negative); Bilirubin Urine Negative (Negative); Blood Urine Negative (Negative); Cast Urine Automated 0 /lpf (0-5); Color Urine Yellow; Glucose Urine UA Negative (Negative); Ketones Urine Negative (Negative); Leukocyte Esterase Urine Negative (Negative); Nitrite Urine Negative (Negative); Protein Urine Trace (Negative); RBC Urine Automated 0-4 /hpf (0-4); Specific Gravity Urine 1.044 (1.000-1.030); Urobilinogen Urine Negative (Negative)
[2021-12-30 13:56] LABS: BUN Creatinine Ratio 12.4 (10-20); Calcium 8.8 mg/dl (8.5-10.1); Creatinine Clr Calc Pharmacy 46.7 ml/min; Est GFR (African American) 68.3 ml/min; Est GFR (Non-African American) 58.9 ml/min; Potassium 4.7 mmol/L (3.5-5.1)
--- NOTE | 2021-12-30 14:58 | Hospitalist Progress Note ---
Date of Service December 30, 2021 Assessment & Plan (1) Acute hyponatremia: (2) Weakness: (3) COVID-19: Plan 86-year-old male with PMH of B-cell lymphoma s/p radiation, CAD s/p stent, CKD, dementia, CVA without any residual weakness, HTN, HLD, COVID pneumonia in August 2020, thoracic aortic aneurysm, left eye blindness, mild aortic regurgitation who lives at home with his daughter/ambulates with a walker was brought in 12/30 due to ongoing cough for last 2 weeks [employer]. Also the patient was getting weaker and balance has gotten wobbly while ambulating for the same time. He was tested positive for COVID again at ED. He had diarrhea since last 1 to 2 days [employer]. He is being managed for the following: ADMITTING IMAGINGS: Admitting C-spine CT: Osteopenia/spondylotic changes. No acute findings. Admitting CT head with no new acute findings. Admitting CXR: New right perihilar lobular density. Progressive interstitial thickening suggestive of interstitial pneumonitis. Admitting CTA chest: No evidence of PE. 4 cm round focus of masslike consolidation in the perihilar RUL. Suggestive of pneumonia versus neoplasm. Follow-up CT in 1 month. There is likely right hilar adenopathy, as well as significantly enlarged mediastinal nodes. Ascending thoracic aorta aneurysm measuring 4.5 cm. RUL pneumonia COVID 19 infection: Not vaccinated, was COVID positive in August 2020, again positive at ED on 12/30/2021. Likely metabolic encephalopathy: Secondary to above plus hyponatremia on the background of dementia, trying to appreciate baseline, called and left voicemail to dtr Teressa, awaiting callback. Admitting UA negative. Patient presenting with cough for 2 weeks [employer] associated with progressive weakness and worsening balance. Admitting CXR and CTA chest as above. Admitting respiratory panel negative except for COVID. Patient started on Rocephin and doxycycline 12/30, continue with the same. Patient on room air, incentive spirometer as able. Patient will need repeat CT of the chest in 1 month. Hyponatremia: Admitting sodium 124. Baseline sodium in mid 130s. Possibly from respiratory illness/?? SIADH. Serum osmolality 266, urine osmolality 565 and urine random sodium 112. Nephrology consulted, patient on gentle IV fluid given recent diarrhea. Fluid restriction of 1.2 L/day. Low-sodium diet. Other chronic medical conditions: CAD status post stent, HTN, GERD, HLD, mild dementia, thoracic aortic aneurysm [needs follow-up], prediabetes, CVA, left eye blindness, CKD stage III, B-cell lymphoma status post radiation -->> continue with/resume home meds as and when able. DVT prophylaxis: Lovenox CODE STATUS: DNR/DNI Disposition: PT/OT, CM to assist with DC planning, pending improvement in his mental status/symptoms/sodium. Admission and Anticipated Discharge Date Admission Date: December 30, 2021 Subjective Patient seen and examined at bedside as a follow-up of hyponatremia and RUL consolidation likely pneumonia. Patient was sitting up in chair, alert and awake, confused, denied pain or discomfort, ROS n/a due to cognition status. Per RN, patient is eating okay, is incontinent of stool, is not able to cooperate care. Has taken out his iv lines. Physical Exam Physical Exam: GENERAL: Alert and awake. Confused. RA. appears ill and frail. HEENT: No pallor, no icterus. Left eye blindness. Right pupil reactive to light. Oral mucosa moist. NECK: No JVD, no neck masses. HEART: S1 and S2 heard. Regular rate and rhythm. No murmur, no gallop. RESPIRATORY SYSTEM: Normal AP diameter. No accessory muscle use. No wheezing, no crackles. ABDOMEN: Soft, bowel sounds present, nontender, no distention. CENTRAL NERVOUS SYSTEM: No facial droop. rest n/a. EXTREMITIES: No edema, no erythema seen. Results & Data Results & Data ([facility]) Vital Signs (Past 12 Hours) Vital Signs Temp Pulse Pulse Resp BP BP Pulse Ox 12/30/21 12:01 36.7 C 66 18 113/63 93 12/30/21 06:18 54 L 12/30/21 09:25 12/30/21 06:11 36.6 C 56 L 18 174/81 H 96 12/30/21 06:01 54 L 12/30/21 05:01 138/87 95 12/30/21 05:01 57 L 22 12/30/21 05:00 60 20 96 12/30/21 04:31 164/90 H 12/30/21 04:31 55 L 19 12/30/21 04:30 51 L 24 12/30/21 04:01 173/81 H 12/30/21 04:01 56 L 22 96 12/30/21 04:00 56 L 22 98 12/30/21 03:58 156/78 H 12/30/21 03:49 68 22 12/30/21 03:30 57 L 22 12/30/21 03:30 155/99 H 95 12/30/21 03:01 65 21 12/30/21 03:01 141/71 H O2 Del Method 12/30/21 12:01 12/30/21 06:18 12/30/21 09:25 Room Air 12/30/21 06:11 Room Air 12/30/21 06:01 12/30/21 05:01 12/30/21 05:01 12/30/21 05:00 12/30/21 04:31 12/30/21 04:31 12/30/21 04:30 12/30/21 04:01 12/30/21 04:01 12/30/21 04:00 12/30/21 03:58 12/30/21 03:49 12/30/21 03:30 12/30/21 03:30 12/30/21 03:01 12/30/21 03:01
[2021-12-30 16:54] LABS: Reticulocyte % 1.5 % (0.5-2.0); Reticulocytes # 0.05 10^6/uL (0.02-0.10)
[2021-12-30 20:13] LABS: BUN Creatinine Ratio 11.8 (10-20); Calcium 8.5 mg/dl (8.5-10.1); Creatinine Clr Calc Pharmacy 47.9 ml/min; Est GFR (African American) 70.6 ml/min; Est GFR (Non-African American) 60.9 ml/min; Potassium 3.9 mmol/L (3.5-5.1)
[2021-12-31] MEDS: lisinopril 20 MG TAB PO SCH (01:19)
[2021-12-31] MEDS: cefTRIAXone SODIUM 1,000 MG in DEXTROSE 5% 50 ML IV SCH (05:59)
[2021-12-31] MEDS: ENOXAPARIN INJ 40 MG/0.4 ML SYR SQ SCH (05:59)
[2021-12-31 07:13] LABS: Hematocrit (blood only) 26.2 % (40.1-51.0); Hemoglobin 9.5 g/dl (14.0-18.0); Mean Corpuscular Hemoglobin 31.3 pg (25.0-34.0); Mean Corpuscular Hgb Conc 36.3 g/dL (32.0-36.0); Mean Corpuscular Volume 86.2 fL (80.0-100.0); Mean Platelet Volume 10.2 fL (9.4-12.4); Platelet Count 234 K/uL (130-400); RDW Coefficient of Variation 12.7 % (11.5-14.5); Red Blood Count 3.04 M/uL (4.63-6.08)
[2021-12-31 07:37] LABS: BUN Creatinine Ratio 10.2 (10-20); Calcium 8.8 mg/dl (8.5-10.1); Creatinine Clr Calc Pharmacy 38.4 ml/min; Est GFR (African American) 59.3 ml/min; Est GFR (Non-African American) 51.2 ml/min; Potassium 4.1 mmol/L (3.5-5.1)
[2021-12-31 07:38] LABS: Magnesium 1.9 mg/dl (1.7-2.4); Phosphorus 3.1 mg/dl (2.5-4.9)
[2021-12-31] MEDS: PANTOprazole 40 MG TAB PO SCH (09:20)
[2021-12-31] MEDS: ATORVASTATIN 40 MG TAB PO SCH (09:20)
[2021-12-31] MEDS: CLOPIDOGREL BISULFATE 75 MG TAB PO SCH (09:20)
[2021-12-31] MEDS: MULTIVITAMIN TAB PO SCH (09:21)
[2021-12-31] MEDS: DOXYCYCLINE HYCLATE 100 MG CAP PO SCH ×2 (09:21→20:40)
[2021-12-31] MEDS: KETOCONAZOLE 2% CR 15 GM TUBE EXT SCH ×2 (09:22→20:44)
[2021-12-31] MEDS: METOPROLOL SUCC 25MG EXT REL TAB PO SCH (09:22)
[2021-12-31] MEDS ORDERED: FUROSEMIDE INJ 20 MG/2 ML VIAL IV ONE (11:05)
--- NOTE | 2021-12-31 11:09 | Nephrology Progress Note ---
Date of Service December 31, 2021 Assessment & Plan Admission and Anticipated Discharge Date Admission Date: December 30, 2021 Subjective S--no new issues. Still RA. na about same PHYSICAL EXAMINATION: GENERAL: Elderly white male who is of moderate build. He is not in any respiratory distress. He is not on oxygen at this time. VITAL SIGNS: Blood pressure is 174/81, pulse rate 56, temperature 36.6, 96% on room air. HEENT: Mucous membranes are moist. CHEST: Bilateral diminished breath sounds, but very poor inspiratory effort. CVS: S1 and S2 regular. Soft systolic murmur heard. ABDOMEN: Soft, nontender. EXTREMITIES: Show no edema. LABORATORY TESTS: labs reviewed CT angiogram of the chest with IV contrast shows there is no evidence of pulmonary embolism, 4-cm mass in the right upper lobe, right hilar adenopathy as well as significantly enlarged mediastinal nodes, cardiomegaly. Chest x-ray shows progressive interstitial thickening, mild cardiomegaly. ASSESSMENT AND PLAN: An 86-year-old male who presented to the hospital with progressive cough and was found to be positive for COVID and also hyponatremia. Hyponatremia---from SIADH. Appears euvolemic. rec: urea-na 15 gm bid. NS given very poor appetite --at 80 ml per hr 1000 ml Lasix 20 iv x 1 to lower urine osm. May need more. BMP q12 hr is fine. Results & Data ([facility]) Vital Signs (Past 12 Hours) Vital Signs Temp Pulse Pulse Resp BP Pulse Ox Pulse Ox 12/31/21 07:32 36.5 C 54 L 20 166/82 H 98 12/31/21 07:22 46 L 12/31/21 06:59 95 12/31/21 04:02 36.5 C 54 L 16 179/92 H 96 12/30/21 23:38 37.1 C 57 L 18 183/77 H 95 O2 Del Method O2 Del Method 12/31/21 07:32 Room Air 12/31/21 07:22 12/31/21 06:59 Room Air 12/31/21 04:02 Room Air 12/30/21 23:38 Room Air
[2021-12-31] MEDS: SODIUM CHLORIDE 0.9% 1000ML 1,000 ML IV SCH (11:42)
[2021-12-31] MEDS ORDERED: PNEUMOCOCCAL Polysaccharide Vaccine 25mcg/0.5mL vial/Syr IM ONE (12:00)
[2021-12-31] MEDS: UREA (UREA-NA) 15 GM PACK PO SCH ×2 (12:27→20:42)
[2021-12-31] MEDS ORDERED: hydrALAZINE HCL 20 MG/ML VIAL IV PRN (16:27)
--- NOTE | 2021-12-31 16:39 | Hospitalist Progress Note ---
Date of Service December 31, 2021 Assessment & Plan (1) Acute hyponatremia: (2) Weakness: (3) COVID-19: Plan 86-year-old male with PMH of B-cell lymphoma s/p radiation, CAD s/p stent, CKD, dementia, CVA without any residual weakness, HTN, HLD, COVID pneumonia in August 2020, thoracic aortic aneurysm, left eye blindness, mild aortic regurgitation who lives at home with his daughter/ambulates with a walker was brought in 12/30 due to ongoing cough for last 2 weeks RN LACTATION. Also the patient was getting weaker and balance has gotten wobbly while ambulating for the same time. He was tested positive for COVID again at ED. He had diarrhea since last 1 to 2 days RN LACTATION. He is being managed for the following: ADMITTING IMAGINGS: Admitting C-spine CT: Osteopenia/spondylotic changes. No acute findings. Admitting CT head with no new acute findings. Admitting CXR: New right perihilar lobular density. Progressive interstitial thickening suggestive of interstitial pneumonitis. Admitting CTA chest: No evidence of PE. 4 cm round focus of masslike consolidation in the perihilar RUL. Suggestive of pneumonia versus neoplasm. Follow-up CT in 1 month. There is likely right hilar adenopathy, as well as significantly enlarged mediastinal nodes. Ascending thoracic aorta aneurysm measuring 4.5 cm. Pt follows w/ Dr. Longoria Q6 Mo. OP f/u needed. RUL pneumonia/ Pneumonia due to COVID-19 virus and possible bacterial pneumonia COVID 19 infection: Not vaccinated, was COVID positive in August 2020, again positive at ED on 12/30/2021. Likely metabolic encephalopathy: Secondary to above plus hyponatremia on the background of dementia, patient is confused at baseline with good and bad days per patient's daughter and generally oriented during good days. Admitting UA negative. Patient presenting with cough for 2 weeks RN LACTATION associated with progressive weakn ess and worsening balance. Admitting CXR and CTA chest as above. Admitting respiratory panel negative except for COVID. Patient started on Rocephin and doxycycline 12/30, continue with the same. Patient on room air, incentive spirometer as able. Discussed with pulmonology 12/30 , continue with antibiotics and repeat CT scan of the chest in 4 to 6 weeks . Patient will likely need bronchoscopy if with no resolution of RUL masslike consolidation. Patient will need repeat CT of the chest in 1 month. Hyponatremia: Admitting sodium 124. Baseline sodium in mid 130s. SIADH. Serum osmolality 266, urine osmolality 565 and urine random sodium 112. Nephrology on board, patient on gentle IV fluid given poor appetite. Appreciate recommendation. Low-sodium diet. Sodium of 126 today. Other chronic medical conditions: CAD status post stent, HTN, GERD, HLD, mild dementia, thoracic aortic aneurysm [needs follow-up], prediabetes, CVA, left eye blindness, CKD stage III, B-cell lymphoma status post radiation -->> continue with/resume home meds as and when able. Lisinopril increased and amlod added d/t uncontrolled HTN. Prn hydralazine on board. DVT prophylaxis: Lovenox CODE STATUS: DNR/DNI Disposition: PT/OT, CM to assist with DC planning, pending improvement in his mental status/symptoms/sodium. Likely next 1-2 days. Admission and Anticipated Discharge Date Admission Date: December 30, 2021 Subjective Patient seen and examined at bedside as a follow-up of hyponatremia and RUL consolidation likely pneumonia. Patient was sitting up in chair, alert and awake, oriented x1, denied pain or discomfort, ROS n/a due to cognition status. Patient was eating his lunch. Lopressor was not given due to decreased heart rate in the morning, blood pressure is high, added as needed hydralazine. Physical Exam Physical Exam: GENERAL: Alert and awake. Confused. RA. appears ill and frail. Hard of hearing. HEENT: No pallor, no icterus. Left eye blindness. Right pupil reactive to light. Oral mucosa moist. NECK: No JVD, no neck masses. HEART: S1 and S2 heard. Regular rate and rhythm. No murmur, no gallop. RESPIRATORY SYSTEM: Normal AP diameter. No accessory muscle use. No wheezing, no crackles. ABDOMEN: Soft, bowel sounds present, nontender, no distention. CENTRAL NERVOUS SYSTEM: No facial droop. rest n/a. EXTREMITIES: No edema, no erythema seen. Results & Data Results & Data ([facility]) Vital Signs (Past 12 Hours) Vital Signs Temp Pulse Pulse Resp BP Pulse Ox Pulse Ox 12/31/21 15:55 36.4 C L 66 16 181/80 H 97 12/31/21 13:23 12/31/21 11:28 36.6 C 73 16 155/73 H 97 12/31/21 07:32 36.5 C 54 L 20 166/82 H 98 12/31/21 07:22 46 L 12/31/21 06:59 95 O2 Del Method O2 Del Method 12/31/21 15:55 Room Air 12/31/21 13:23 Room Air 12/31/21 11:28 Room Air 12/31/21 07:32 Room Air 12/31/21 07:22 12/31/21 06:59 Room Air
[2021-12-31] MEDS: guaiFENesin/CODEINE 100MG/10MG 5ML UDC PO PRN (20:38)
[2021-12-31] MEDS: amLODIPine BESYLATE 5 MG TAB PO SCH (20:40)
[2022-01-01] MEDS: SODIUM CHLORIDE 0.9% 1000ML 1,000 ML IV SCH (01:09)
[2022-01-01] MEDS: cefTRIAXone SODIUM 1,000 MG in DEXTROSE 5% 50 ML IV SCH (06:06)
[2022-01-01] MEDS: ENOXAPARIN INJ 40 MG/0.4 ML SYR SQ SCH (06:07)
[2022-01-01 06:15] LABS: Hematocrit (blood only) 27.2 % (40.1-51.0); Mean Corpuscular Hemoglobin 31.3 pg (25.0-34.0); Mean Corpuscular Hgb Conc 36.8 g/dL (32.0-36.0); Mean Corpuscular Volume 85.3 fL (80.0-100.0); Platelet Count 255 K/uL (130-400); RDW Coefficient of Variation 12.4 % (11.5-14.5); Red Blood Count 3.19 M/uL (4.63-6.08); White Blood Count 9.21 K/ul (4.8-10.8)
[2022-01-01 06:39] LABS: BUN Creatinine Ratio 20.3 (10-20); Calcium 8.9 mg/dl (8.5-10.1); Creatinine Clr Calc Pharmacy 39.6 ml/min; Est GFR (African American) 61.7 ml/min; Est GFR (Non-African American) 53.2 ml/min; Magnesium 1.8 mg/dl (1.7-2.4); Phosphorus 3.1 mg/dl (2.5-4.9); Potassium 3.4 mmol/L (3.5-5.1)
[2022-01-01] MEDS ORDERED: POTASSIUM CHLORIDE CRTAB 20 MEQ TABCR PO STA (07:55)
[2022-01-01] MEDS: ATORVASTATIN 40 MG TAB PO SCH (08:25)
[2022-01-01] MEDS: DOXYCYCLINE HYCLATE 100 MG CAP PO SCH ×2 (08:27→20:33)
[2022-01-01] MEDS: MULTIVITAMIN TAB PO SCH (08:28)
[2022-01-01] MEDS: lisinopril 20 MG TAB PO SCH (08:28)
[2022-01-01] MEDS: PANTOprazole 40 MG TAB PO SCH (08:29)
[2022-01-01] MEDS: METOPROLOL SUCC 25MG EXT REL TAB PO SCH (08:29)
[2022-01-01] MEDS: CLOPIDOGREL BISULFATE 75 MG TAB PO SCH (08:29)
[2022-01-01] MEDS: UREA (UREA-NA) 15 GM PACK PO SCH ×2 (08:30→20:33)
[2022-01-01] MEDS: KETOCONAZOLE 2% CR 15 GM TUBE EXT SCH ×2 (08:32→20:38)
[2022-01-01] MEDS: guaiFENesin/CODEINE 100MG/10MG 5ML UDC PO PRN (08:44)
--- NOTE | 2022-01-01 10:44 | Nephrology Progress Note ---
Date of Service January 01, 2022 Assessment & Plan (1) Acute hyponatremia: Plan: Patient with hyponatremia due to SIADH in setting of COVID infection. Sodium is up trending to 1.8 today. -Continue urea 15 g twice daily -fluid restriction of 1.5 L daily (2) COVID-19: Plan: Patient with COVID-pneumonia. He is saturating well on room air. No need for diuretics at the moment. Admission and Anticipated Discharge Date Admission Date: December 30, 2021 Subjective Seen in follow-up for hyponatremia. Patient has NG tube to suction. Sodium is up trending to 128. Main complaint is thirst. No shortness of breath Review of Systems Review of Systems: All other systems were reviewed and negative except as noted in HPI Physical Exam Physical Exam: General exam: Appears comfortable, no acute distress HEENT: Pupils are equal and reactive to light Neck: No JVD, neck is supple trachea is midline Respiratory system: Clear breath sounds bilaterally. Gastrointestinal: Abdomen is soft, moderately distended, non tender, bowel sounds are present CVS: Regular rate and rhythm. No murmurs, rubs or gallops Musculoskeletal: No joint or muscle tenderness Extremities: Non tender, no edema, peripheral pulses are present Neuro: Oriented, no tremors, no focal neurological deficits Skin: No rashes Results & Data ([facility]) Vital Signs (Past 12 Hours) Vital Signs Temp Pulse Pulse Resp BP BP Pulse Ox 01/01/22 09:21 01/01/22 06:00 01/01/22 07:31 36.6 C 77 20 168/93 H 97 01/01/22 07:31 60 01/01/22 03:03 36.7 C 71 20 161/76 H 98 12/31/21 23:35 36.6 C 69 18 165/89 H 95 12/31/21 23:08 70 12/31/21 23:08 Pulse Ox O2 Del Method O2 Del Method 01/01/22 09:21 Room Air 01/01/22 06:00 96 Room Air 01/01/22 07:31 Room Air 01/01/22 07:31 01/01/22 03:03 Room Air 12/31/21 23:35 Room Air 12/31/21 23:08 12/31/21 23:08 Room Air Laboratory Results 01/01/22 05:52 01/01/22 01/01/22 05:52 05:52 WBC 9.21 RBC 3.19 L MCV 85.3 MCH 31.3 MCHC 36.8 H RDW Std Deviation 38.0 RDW Coeff of Roderick 12.4 Plt Count 255 MPV 10.0 Phosphorus 3.1
[2022-01-01] MEDS ORDERED: POTASSIUM CHLORIDE CRTAB 20 MEQ TABCR PO ONE (11:00)
--- NOTE | 2022-01-01 17:58 | Hospitalist Progress Note ---
Date of Service January 01, 2022 Assessment & Plan (1) Acute hyponatremia: (2) Weakness: (3) COVID-19: Plan 86-year-old male with PMH of B-cell lymphoma s/p radiation, CAD s/p stent, CKD, dementia, CVA without any residual weakness, HTN, HLD, COVID pneumonia in August 2020, thoracic aortic aneurysm, left eye blindness, mild aortic regurgitation who lives at home with his daughter/ambulates with a walker was brought in 12/30 due to ongoing cough for last 2 weeks [employer]. Also the patient was getting weaker and balance has gotten wobbly while ambulating for the same time. He was tested positive for COVID again at ED. He had diarrhea since last 1 to 2 days [employer]. He is being managed for the following: ADMITTING IMAGINGS: Admitting C-spine CT: Osteopenia/spondylotic changes. No acute findings. Admitting CT head with no new acute findings. Admitting CXR: New right perihilar lobular density. Progressive interstitial thickening suggestive of interstitial pneumonitis. Admitting CTA chest: No evidence of PE. 4 cm round focus of masslike consolidation in the perihilar RUL. Suggestive of pneumonia versus neoplasm. Follow-up CT in 1 month. There is likely right hilar adenopathy, as well as significantly enlarged mediastinal nodes. Ascending thoracic aorta aneurysm measuring 4.5 cm. Pt follows w/ Dr. Longoria Q6 Mo. OP f/u needed. RUL pneumonia/ Pneumonia due to COVID-19 virus and possible bacterial pneumonia COVID 19 infection: Not vaccinated, was COVID positive in August 2020, again positive at ED on 12/30/2021. Likely metabolic encephalopathy: Secondary to above plus hyponatremia on the background of dementia, patient is confused at baseline with good and bad days per patient's daughter and generally oriented during good days. Admitting UA negative. Patient presenting with cough for 2 weeks [employer] associated with progressive weakn ess and worsening balance. Admitting CXR and CTA chest as above. Admitting respiratory panel negative except for COVID. Patient started on Rocephin and doxycycline 12/30, continue with the same. Patient on room air, incentive spirometer as able. Discussed with pulmonology 12/30 , continue with antibiotics and repeat CT scan of the chest in 4 to 6 weeks . Patient will likely need bronchoscopy if with no resolution of RUL masslike consolidation. Patient will need repeat CT of the chest in 1 month. Hyponatremia: Admitting sodium 124. Baseline sodium in mid 130s. SIADH. Serum osmolality 266, urine osmolality 565 and urine random sodium 112. Nephrology on board, appreciate recommendation. Low-sodium diet. Sodium of 128 today. Other chronic medical conditions: CAD status post stent, HTN, GERD, HLD, mild dementia, thoracic aortic aneurysm [needs follow-up], prediabetes, CVA, left eye blindness, CKD stage III, B-cell lymphoma status post radiation -->> continue with/resume home meds as and when able. Lisinopril increased and amlod added d/t uncontrolled HTN. Prn hydralazine on board. DVT prophylaxis: Lovenox CODE STATUS: DNR/DNI Disposition: PT/OT, CM to assist with DC planning, pending improvement in his mental status/symptoms/sodium. Likely next 1 days w/ nephro clearance. Admission and Anticipated Discharge Date Admission Date: December 30, 2021 Subjective Patient seen and examined at bedside as a follow-up of hyponatremia and RUL consolidation likely pneumonia. Patient was sitting up in chair, alert and awake, oriented x2, denied pain or discomfort, patient denies headache/dizziness/shortness of breath/chest pain/belly pain/other review of symptoms. Patient reports improving cough.. Patient was eating his lunch. Per RN, no new acute events overnight. Will consult PT/OT. Physical Exam Physical Exam: GENERAL: Alert and awake. RA. appears ill and frail. Hard of hearing. HEENT: No pallor, no icterus. Left eye blindness. Right pupil reactive to light. Oral mucosa moist. NECK: No JVD, no neck masses. HEART: S1 and S2 heard. Regular rate and rhythm. No murmur, no gallop. RESPIRATORY SYSTEM: Normal AP diameter. No accessory muscle use. No wheezing, no crackles. ABDOMEN: Soft, bowel sounds present, nontender, no distention. CENTRAL NERVOUS SYSTEM: No facial droop. Moves extremities. EXTREMITIES: No edema, no erythema seen. Results & Data Results & Data ([facility]) Vital Signs (Past 12 Hours) Vital Signs Temp Pulse Pulse Resp BP Pulse Ox Pulse Ox 01/01/22 15:26 68 01/01/22 15:16 36.4 C L 70 20 149/95 H 97 01/01/22 11:26 36.6 C 71 18 123/84 98 01/01/22 09:21 01/01/22 06:00 96 01/01/22 07:31 36.6 C 77 20 168/93 H 97 01/01/22 07:31 60 O2 Del Method O2 Del Method 01/01/22 15:26 01/01/22 15:16 Room Air 01/01/22 11:26 Room Air 01/01/22 09:21 Room Air 01/01/22 06:00 Room Air 01/01/22 07:31 Room Air 01/01/22 07:31
[2022-01-01] MEDS: amLODIPine BESYLATE 5 MG TAB PO SCH (20:33)
[2022-01-02] MEDS: cefTRIAXone SODIUM 1,000 MG in DEXTROSE 5% 50 ML IV SCH (05:57)
[2022-01-02] MEDS: ENOXAPARIN INJ 40 MG/0.4 ML SYR SQ SCH (05:58)
[2022-01-02 07:33] LABS: Calcium 9.2 mg/dl (8.5-10.1); Magnesium 1.9 mg/dl (1.7-2.4); Potassium 3.9 mmol/L (3.5-5.1)
[2022-01-02 07:39] LABS: Creatinine Clr Calc Pharmacy 38.1 ml/min; Est GFR (African American) 58.8 ml/min; Est GFR (Non-African American) 50.7 ml/min
[2022-01-02] MEDS: DOXYCYCLINE HYCLATE 100 MG CAP PO SCH ×2 (08:12→19:55)
[2022-01-02] MEDS: MULTIVITAMIN TAB PO SCH (08:13)
[2022-01-02] MEDS: ATORVASTATIN 40 MG TAB PO SCH (08:13)
[2022-01-02] MEDS: CLOPIDOGREL BISULFATE 75 MG TAB PO SCH (08:13)
[2022-01-02] MEDS: METOPROLOL SUCC 25MG EXT REL TAB PO SCH (08:13)
[2022-01-02] MEDS: UREA (UREA-NA) 15 GM PACK PO SCH ×2 (08:13→20:12)
[2022-01-02] MEDS: PANTOprazole 40 MG TAB PO SCH (08:13)
[2022-01-02] MEDS: lisinopril 20 MG TAB PO SCH (08:13)
[2022-01-02] MEDS: KETOCONAZOLE 2% CR 15 GM TUBE EXT SCH ×2 (08:14→19:55)
[2022-01-02] MEDS ORDERED: POTASSIUM CHLORIDE CRTAB 20 MEQ TABCR PO STA (09:30)
[2022-01-02] MEDS ORDERED: UREA (UREA-NA) 15 GM PACK PO ONE (11:08)
--- NOTE | 2022-01-02 11:11 | Nephrology Progress Note ---
Date of Service January 02, 2022 Assessment & Plan (1) Acute hyponatremia: Plan: Patient with hyponatremia due to SIADH in setting of COVID infection. Sodium is 128 today. -Increase urea 30 g twice daily -fluid restriction of 1.5 L daily (2) COVID-19: Plan: Patient with COVID-pneumonia. He is saturating well on room air. No need for diuretics at the moment. Admission and Anticipated Discharge Date Admission Date: December 30, 2021 Subjective Seen for hyponatremia. Patient remains intermittently confused. Sodium is stable at 128. Review of Systems Review of Systems: All other systems were reviewed and negative except as noted in HPI Physical Exam Physical Exam: General exam: Appears comfortable, no acute distress HEENT: Pupils are equal and reactive to light Neck: No JVD, neck is supple trachea is midline Respiratory system: Clear breath sounds bilaterally. Gastrointestinal: Abdomen is soft, moderately distended, non tender, bowel sounds are present CVS: Regular rate and rhythm. No murmurs, rubs or gallops Musculoskeletal: No joint or muscle tenderness Extremities: Non tender, no edema, peripheral pulses are present Neuro: Oriented, no tremors, no focal neurological deficits Skin: No rashes Results & Data ([facility]) Vital Signs (Past 12 Hours) Vital Signs Temp Pulse Pulse Resp BP BP Pulse Ox 01/02/22 10:46 36.5 C 71 18 148/80 H 96 01/02/22 10:19 01/02/22 08:10 36.8 C 79 18 151/81 H 96 01/02/22 06:00 01/02/22 07:06 72 01/02/22 04:00 77 18 169/89 H 94 01/01/22 23:16 70 Pulse Ox O2 Del Method O2 Del Method 01/02/22 10:46 Room Air 01/02/22 10:19 Room Air 01/02/22 08:10 Room Air 01/02/22 06:00 96 Room Air 01/02/22 07:06 01/02/22 04:00 Room Air 01/01/22 23:16 Laboratory Results 01/02/22 06:14
--- NOTE | 2022-01-02 16:38 | Hospitalist Progress Note ---
Date of Service January 02, 2022 Assessment & Plan (1) Acute hyponatremia: (2) Weakness: (3) COVID-19: Plan 86-year-old male with PMH of B-cell lymphoma s/p radiation, CAD s/p stent, CKD, dementia, CVA without any residual weakness, HTN, HLD, COVID pneumonia in August 2020, thoracic aortic aneurysm, left eye blindness, mild aortic regurgitation who lives at home with his daughter/ambulates with a walker was brought in 12/30 due to ongoing cough for last 2 weeks [employer]. Also the patient was getting weaker and balance has gotten wobbly while ambulating for the same time. He was tested positive for COVID again at ED. He had diarrhea since last 1 to 2 days [employer]. He is being managed for the following: ADMITTING IMAGINGS: Admitting C-spine CT: Osteopenia/spondylotic changes. No acute findings. Admitting CT head with no new acute findings. Admitting CXR: New right perihilar lobular density. Progressive interstitial thickening suggestive of interstitial pneumonitis. Admitting CTA chest: No evidence of PE. 4 cm round focus of masslike consolidation in the perihilar RUL. Suggestive of pneumonia versus neoplasm. Follow-up CT in 1 month. There is likely right hilar adenopathy, as well as significantly enlarged mediastinal nodes. Ascending thoracic aorta aneurysm measuring 4.5 cm. Pt follows w/ Dr. Longoria Q6 Mo. OP f/u needed. RUL pneumonia/ Pneumonia due to COVID-19 virus and possible bacterial pneumonia COVID 19 infection: Not vaccinated, was COVID positive in August 2020, again positive at ED on 12/30/2021. Likely metabolic encephalopathy: Secondary to above plus hyponatremia on the background of dementia, patient is confused at baseline with good and bad days per patient's daughter and generally oriented during good days. Admitting UA negative. Patient presenting with cough for 2 weeks [employer] associated with progressive weakn ess and worsening balance. Admitting CXR and CTA chest as above. Admitting respiratory panel negative except for COVID. Patient started on Rocephin and doxycycline 12/30, continue with the same. Patient on room air, incentive spirometer as able. Discussed with pulmonology 12/30 , continue with antibiotics and repeat CT scan of the chest in 4 to 6 weeks . Patient will likely need bronchoscopy if with no resolution of RUL masslike consolidation. Patient will need repeat CT of the chest in 1 month. Hyponatremia: Admitting sodium 124. Baseline sodium in mid 130s. SIADH. Serum osmolality 266, urine osmolality 565 and urine random sodium 112. Nephrology on board, appreciate recommendation. Low-sodium diet. Sodium of 128 today. Other chronic medical conditions: CAD status post stent, HTN, GERD, HLD, mild dementia, thoracic aortic aneurysm [needs follow-up], prediabetes, CVA, left eye blindness, CKD stage III, B-cell lymphoma status post radiation -->> continue with/resume home meds as and when able. Lisinopril increased and amlod added d/t uncontrolled HTN. Prn hydralazine on board. DVT prophylaxis: Lovenox CODE STATUS: DNR/DNI Disposition: PT/OT, CM to assist with DC planning, pending improvement in his mental status/symptoms/sodium. Likely next 1 days w/ nephro clearance. Admission and Anticipated Discharge Date Admission Date: December 30, 2021 Subjective Patient seen and examined at bedside as a follow-up of hyponatremia and RUL consolidation likely pneumonia. Patient was lying in bed, appears confused today, oriented x1, denied pain or discomfort, ROS n/a due to cognition status. Per RN, no new acute events overnight, patient is a picky eater, had moved bowel. Physical Exam Physical Exam: GENERAL: Confused. RA. appears ill and frail. Hard of hearing. HEENT: No pallor, no icterus. Left eye blindness. Right pupil reactive to light. Oral mucosa moist. NECK: No JVD, no neck masses. HEART: S1 and S2 heard. Regular rate and rhythm. No murmur, no gallop. RESPIRATORY SYSTEM: Normal AP diameter. No accessory muscle use. No wheezing, no crackles. ABDOMEN: Soft, bowel sounds present, nontender, no distention. CENTRAL NERVOUS SYSTEM: No facial droop. Moves extremities. EXTREMITIES: No edema, no erythema seen. Results & Data Results & Data ([facility]) Vital Signs (Past 12 Hours) Vital Signs Temp Pulse Pulse Resp BP Pulse Ox Pulse Ox 01/02/22 15:59 70 01/02/22 14:07 36.5 C 74 18 151/65 H 96 01/02/22 10:46 36.5 C 71 18 148/80 H 96 01/02/22 10:19 01/02/22 08:10 36.8 C 79 18 151/81 H 96 01/02/22 06:00 96 01/02/22 07:06 72 O2 Del Method O2 Del Method 01/02/22 15:59 01/02/22 14:07 Room Air 01/02/22 10:46 Room Air 01/02/22 10:19 Room Air 01/02/22 08:10 Room Air 01/02/22 06:00 Room Air 01/02/22 07:06
[2022-01-02] MEDS: amLODIPine BESYLATE 5 MG TAB PO SCH (20:11)
[2022-01-02] MEDS: guaiFENesin/CODEINE 100MG/10MG 5ML UDC PO PRN (20:30)
[2022-01-03] MEDS: ENOXAPARIN INJ 40 MG/0.4 ML SYR SQ SCH (05:38)
[2022-01-03] MEDS: cefTRIAXone SODIUM 1,000 MG in DEXTROSE 5% 50 ML IV SCH (05:38)
--- NOTE | 2022-01-03 07:03 | Nephrology Progress Note ---
Date of Service January 03, 2022 Assessment & Plan (1) Acute hyponatremia: Plan: hyponatremia due to SIADH in setting of COVID infection. Sodium is 128 01/03, 01/04 is 131. -cont increased urea 30 g twice daily -fluid restriction of 1.5 L daily to continue (2) COVID-19: Plan: Patient with COVID-pneumonia. He is saturating well on room air. No need for diuretics at the moment. Admission and Anticipated Discharge Date Admission Date: December 30, 2021 Subjective can't/won't do ROS d/t fatigue "I'm too tired to hold my eyes open" - denies pain or worse sob; else as below Review of Systems Review of Systems: Other (unobtainable d/t pt fatigue) Physical Exam Constitutional: well developed and well nourished exhausted, does not lift head or open eyes more than a few seconds Eyes: EOM intact bilaterally ENMT: Ears: no external ear abnormality Nose: no external nose abnormality Mouth: + dry oral mucous membranes Neck: no nuchal rigidity Respiratory: normal respiratory effort; no cough Auscultation: + diminished lung sounds Gastrointestinal (Abdomen): Inspection/Auscultation: normal bowel sounds Percussion/Palpation: abdomen soft; abdomen nontender Musculoskeletal: Extremities: strength 5/5 throughout Skin: no rashes, warm and dry Neurologic: tse, fluent speech, no tremor Results & Data ([facility]) Vital Signs (Past 12 Hours) Vital Signs Temp Pulse Pulse Resp BP Pulse Ox O2 Del Method 01/02/22 20:30 67 01/02/22 20:30 Room Air 01/02/22 23:24 36.5 C 67 18 130/70 94 Room Air 01/02/22 19:51 36.6 C 69 18 133/75 96 Room Air Laboratory Results 01/01/22 05:52 01/03/22 06:24
[2022-01-03 08:07] LABS: BUN Creatinine Ratio 45.9 (10-20); Calcium 9.8 mg/dl (8.5-10.1); Creatinine Clr Calc Pharmacy 36.6 ml/min; Est GFR (African American) 56.1 ml/min; Est GFR (Non-African American) 48.4 ml/min; Potassium 3.9 mmol/L (3.5-5.1)
[2022-01-03] MEDS: UREA (UREA-NA) 15 GM PACK PO SCH ×2 (08:17→20:00)
[2022-01-03] MEDS: KETOCONAZOLE 2% CR 15 GM TUBE EXT SCH ×2 (08:19→19:58)
[2022-01-03] MEDS: CLOPIDOGREL BISULFATE 75 MG TAB PO SCH (08:19)
[2022-01-03] MEDS: DOXYCYCLINE HYCLATE 100 MG CAP PO SCH ×2 (08:19→20:01)
[2022-01-03] MEDS: MULTIVITAMIN TAB PO SCH (08:20)
[2022-01-03] MEDS: ATORVASTATIN 40 MG TAB PO SCH (08:20)
[2022-01-03] MEDS: lisinopril 20 MG TAB PO SCH (08:20)
[2022-01-03] MEDS: METOPROLOL SUCC 25MG EXT REL TAB PO SCH (08:20)
[2022-01-03] MEDS: PANTOprazole 40 MG TAB PO SCH (08:20)
--- NOTE | 2022-01-03 11:16 | Hospitalist Progress Note ---
Date of Service January 03, 2022 Assessment & Plan (1) Acute hyponatremia: (2) Weakness: (3) COVID-19: Plan 86-year-old male with PMH of B-cell lymphoma s/p radiation, CAD s/p stent, CKD, dementia, CVA without any residual weakness, HTN, HLD, COVID pneumonia in August 2020, thoracic aortic aneurysm, left eye blindness, mild aortic regurgitation who lives at home with his daughter/ambulates with a walker was brought in 12/30 due to ongoing cough for last 2 weeks [employer]. Also the patient was getting weaker and balance has gotten wobbly while ambulating for the same time. He was tested positive for COVID again at ED. He had diarrhea since last 1 to 2 days [employer]. He is being managed for the following: ADMITTING IMAGINGS: Admitting C-spine CT: Osteopenia/spondylotic changes. No acute findings. Admitting CT head with no new acute findings. Admitting CXR: New right perihilar lobular density. Progressive interstitial thickening suggestive of interstitial pneumonitis. Admitting CTA chest: No evidence of PE. 4 cm round focus of masslike consolidation in the perihilar RUL. Suggestive of pneumonia versus neoplasm. Follow-up CT in 1 month. There is likely right hilar adenopathy, as well as significantly enlarged mediastinal nodes. Ascending thoracic aorta aneurysm measuring 4.5 cm. Pt follows w/ Dr. Longoria Q6 Mo. OP f/u needed. RUL pneumonia/ Pneumonia due to COVID-19 virus and possible bacterial pneumonia COVID 19 infection: Not vaccinated, was COVID positive in August 2020, again positive at ED on 12/30/2021. Likely metabolic encephalopathy: Secondary to above plus hyponatremia on the background of dementia, patient is confused at baseline with good and bad days per patient's daughter and generally oriented during good days. Admitting UA negative. Patient presenting with cough for 2 weeks [employer] associated with progressive weakn ess and worsening balance. Admitting CXR and CTA chest as above. Admitting respiratory panel negative except for COVID. Patient started on Rocephin and doxycycline 12/30, continue total of 7 days. Patient on room air, incentive spirometer as able. Discussed with pulmonology 12/30 , continue with antibiotics and repeat CT scan of the chest in 4 to 6 weeks . Patient will likely need bronchoscopy if with no resolution of RUL masslike consolidation. Patient will need repeat CT of the chest in 1 month. Discussed with daughter On 01/03/2022 Regarding the finding Of the CT scan And discussion with the pulmonology.She understood and verbalized. Patient to have follow-up CT scan After discharge. Hyponatremia: Admitting sodium 124. Baseline sodium in mid 130s. SIADH. Serum osmolality 266, urine osmolality 565 and urine random sodium 112. Nephrology on board, on fluid restriction and oral urea. Na improved to 131 today. Other chronic medical conditions: CAD status post stent, HTN, GERD, HLD, mild dementia, thoracic aortic aneurysm [needs follow-up], prediabetes, CVA, left eye blindness, CKD stage III, B-cell lymphoma status post radiation -->> continue with/resume home meds as and when able. Lisinopril increased and amlod added d/t uncontrolled HTN. Prn hydralazine on board. DVT prophylaxis: Lovenox CODE STATUS: DNR/DNI Disposition :Discussed with daughter regarding placement to rehab.She Prefers him to come back home with her.Likely discharge tomorrow a.m. depending on Clinical status and Sodium level.: Admission and Anticipated Discharge Date Admission Date: December 30, 2021 Subjective Seen and examined at bedside. Is comfortably sitting up on the bed; not in any distress. He is sleepy but awake able. He denies having any discomfort. Review of Systems Review of Systems: All systems reviewed & are unremarkable except as noted in Subjective Physical Exam Physical Exam: GENERAL: sleepy but awakeable; oriented to self. needs frequent redirection. Hard of hearing. HEENT: No pallor, no icterus. Left eye blindness. Right pupil reactive to light. Oral mucosa moist. NECK: No JVD, no neck masses. HEART: S1 and S2 heard. Regular rate and rhythm. No murmur, no gallop. RESPIRATORY SYSTEM: Normal AP diameter. No accessory muscle use. No wheezing, no crackles. ABDOMEN: Soft, bowel sounds present, nontender, no distention. CENTRAL NERVOUS SYSTEM: No facial droop. Moves extremities. EXTREMITIES: No edema, no erythema seen. Results & Data Results & Data ([facility]) Vital Signs (Past 12 Hours) Vital Signs Temp Pulse Pulse Resp BP BP Pulse Ox 01/03/22 10:07 01/03/22 08:14 36.8 C 66 17 125/79 97 01/03/22 07:19 59 L 01/03/22 06:00 01/02/22 23:24 36.5 C 67 18 130/70 94 Pulse Ox O2 Del Method O2 Del Method 01/03/22 10:07 Room Air 01/03/22 08:14 Room Air 01/03/22 07:19 01/03/22 06:00 96 Room Air 01/02/22 23:24 Room Air Laboratory Results Laboratory Results WBC 9.21 K/ul (4.8-10.8) 01/01/22 05:52 RBC 3.19 M/uL (4.63-6.08) L 01/01/22 05:52 Hgb 10.0 g/dl (14.0-18.0) L 01/01/22 05:52 Hct 27.2 % (40.1-51.0) L 01/01/22 05:52 MCV 85.3 fL (80.0-100.0) 01/01/22 05:52 MCH 31.3 pg (25.0-34.0) 01/01/22 05:52 MCHC 36.8 g/dL (32.0-36.0) H 01/01/22 05:52 RDW Std Deviation 38.0 fL (36.4-46.3) 01/01/22 05:52 RDW Coeff of Roderick 12.4 % (11.5-14.5) 01/01/22 05:52 Plt Count 255 K/uL (130-400) 01/01/22 05:52 MPV 10.0 fL (9.4-12.4) 01/01/22 05:52 Immature Gran % (Auto) 0.5 % 12/30/21 08:56 Neut % (Auto) 79.5 % 12/30/21 08:56 Lymph % (Auto) 10.0 % 12/30/21 08:56 [place] % (Auto) 9.4 % 12/30/21 08:56 Eos % (Auto) 0.5 % 12/30/21 08:56 Baso % (Auto) 0.1 % 12/30/21 08:56 Reticulocyte % (Auto) 1.5 % (0.5-2.0) 12/30/21 08:56 Neut # (Auto) 8.23 K/uL (1.4-6.5) H 12/30/21 08:56 Lymph # (Auto) 1.03 K/uL (1.2-3.4) L 12/30/21 08:56 [place] # (Auto) 0.97 K/uL (0.24-0.82) H 12/30/21 08:56 Eos # (Auto) 0.05 K/uL (0-0.50) 12/30/21 08:56 Baso # (Auto) 0.01 K/uL (0-0.2) 12/30/21 08:56 Reticulocyte # 0.05 10^6/uL (0.02-0.10) 12/30/21 08:56 Immature Gran # (Auto) 0.05 K/uL (0.00-0.02) H 12/30/21 08:56 Haptoglobin 186 mg/dL (43-212) 12/30/21 19:14 Sodium 131 mmol/L (136-145) L 01/03/22 06:24 Potassium 3.9 mmol/L (3.5-5.1) 01/03/22 06:24 Chloride 97 mmol/L (98-107) L 01/03/22 06:24 Carbon Dioxide 25 mmol/L (21-32) 01/03/22 06:24 Anion Gap 9 (3-11) 01/03/22 06:24 BUN 61 mg/dl (6-23) H D 01/03/22 06:24 Creatinine 1.33 mg/dl (0.6-1.4) 01/03/22 06:24 Est Cr Clr Drug Dosing 36.6 ml/min 01/03/22 06:24 Est GFR ( Amer) 56.1 ml/min 01/03/22 06:24 Est GFR (Non-Af Amer) 48.4 ml/min 01/03/22 06:24 BUN/Creatinine Ratio 45.9 (10-20) H 01/03/22 06:24 Glucose 94 mg/dl (70-99(Fasting)) 01/03/22 06:24 Osmolality 266 mOsm/kg (280-300) L 12/30/21 01:52 Uric Acid 4.1 mg/dl (2.6-7.2) 12/30/21 13:05 Calcium 9.8 mg/dl (8.5-10.1) 01/03/22 06:24 Phosphorus 3.1 mg/dl (2.5-4.9) 01/01/22 05:52 Magnesium 1.9 mg/dl (1.7-2.4) 01/02/22 06:14 Iron 65 mcg/dl (35-175) 12/31/21 06:44 TIBC 233 mcg/dl (250-450) L 12/31/21 06:44 Unsaturated IBC 168 mcg/dl (155-355) 12/31/21 06:44 Transferrin % Sat 28 % (20-50) 12/31/21 06:44 Total Bilirubin 0.8 mg/dl (0.2-1.0) 12/30/21 01:52 AST 28 U/L (13-39) 12/30/21 01:52 ALT 24 U/L (7-52) 12/30/21 01:52 Alkaline Phosphatase 72 U/L (34-104) 12/30/21 01:52 Lactate Dehydrogenase 161 U/L (86-244) 12/30/21 13:05 Total Creatine Kinase 149 U/L (30-223) 12/30/21 01:52 Troponin I High Sens 8.3 pg/ml (0-20) 12/30/21 01:52 Total Protein 7.0 gm/dl (6.0-8.3) 12/30/21 01:52 Albumin 4.3 gm/dl (3.4-5.0) 12/30/21 01:52 Globulin 2.7 gm/dl (2.5-4.0) 12/30/21 01:52 Albumin/Globulin Ratio 1.6 (0.9-2) 12/30/21 01:52 TSH 4.118 uIu/ml (0.300-4.500) 12/30/21 01:52 Urine Color Yellow 12/30/21 12:10 Urine Appearance Clear (Clear) 12/30/21 12:10 Urine pH 6.0 (4.5-7.5) 12/30/21 12:10 Ur Specific [place] 1.044 (1.000-1.030) H 12/30/21 12:10 Urine Protein Trace (Negative) H 12/30/21 12:10 Urine Glucose (UA) Negative (Negative) 12/30/21 12:10 Urine Ketones Negative (Negative) 12/30/21 12:10 Urine Blood Negative (Negative) 12/30/21 12:10 Urine Nitrite Negative (Negative) 12/30/21 12:10 Urine Bilirubin Negative (Negative) 12/30/21 12:10 Urine Urobilinogen Negative (Negative) 12/30/21 12:10 Ur Leukocyte Esterase Negative (Negative) 12/30/21 12:10 Urine WBC (Auto) 1-5 /hpf (0-5) 12/30/21 12:10 Urine RBC (Auto) 0-4 /hpf (0-4) 12/30/21 12:10 U Hyaline Cast (Auto) 0 /lpf (0-5) 12/30/21 12:10 U Epithel Cells (Auto) 5-10 /lpf (0-5) H 12/30/21 12:10 Urine Bacteria (Auto) Negative (Negative) 12/30/21 12:10 Urine Osmolality 565 mOsm/kg (500-800) 12/30/21 12:10 Ur Random Sodium 112 mmol/L 12/30/21 12:10 Adenovirus (PCR) Not Detected (NotDetected) 12/30/21 02:04 B. pertussis DNA (PCR) Not Detected (NotDetected) 12/30/21 02:04 B.parapertussis DNA PCR Not Detected (NotDetected) 12/30/21 02:04 C. pneumoniae DNA (PCR) Not Detected (NotDetected) 12/30/21 02:04 Coronavirus OC43 (PCR) Not Detected (NotDetected) 12/30/21 02:04 Coronavirus HKU1 (PCR) Not Detected (NotDetected) 12/30/21 02:04 Coronavirus 229E (PCR) Not Detected (NotDetected) 12/30/21 02:04 SARS-CoV-2 (PCR) DETECTED (NotDetected) A* 12/30/21 02:04 Coronavirus NL63 (PCR) Not Detected (NotDetected) 12/30/21 02:04 Human Metapneumovir PCR Not Detected (NotDetected) 12/30/21 02:04 Influenza Type A (PCR) Not Detected (NotDetected) 12/30/21 02:04 Influenza Type B (PCR) Not Detected (NotDetected) 12/30/21 02:04 M. pneumoniae (PCR) Not Detected (NotDetected) 12/30/21 02:04 Parainfluenza 1 (PCR) Not Detected (NotDetected) 12/30/21 02:04 Parainfluenza 2 (PCR) Not Detected (NotDetected) 12/30/21 02:04 Parainfluenza 3 (PCR) Not Detected (NotDetected) 12/30/21 02:04 Parainfluenza 4 (PCR) Not Detected (NotDetected) 12/30/21 02:04 RSV (PCR) Not Detected (NotDetected) 12/30/21 02:04 Entero/Rhino (PCR) Not Detected (NotDetected) 12/30/21 02:[address] 12/30/21 02:00 CT SCAN OF THE CERVICAL SPINE CLINICAL HISTORY: Fall. COMPARISON STUDY: CT angiogram of the neck dated 02/23/2020. TECHNIQUE: CT scan of the cervical spine is performed from the skull base to the upper thoracic spine. Images are reviewed in the axial, sagittal, and coronal planes. IV contrast was not administered for this examination. A dose lowering technique was utilized adhering to the principles of ALARA. CT DOSE: 1038.61 mGy.cm FINDINGS: Skeletal structures: The skeletal structures are osteopenic. There is no evidence of fracture or subluxation involving the cervical spine. Vertebral body height and alignment are maintained. There is straightening of the cervical lordosis with reversal centered at C4-C5. Anterior osteophytes are seen throughout. The odontoid process and lateral masses are intact. The atlantoaxial articulation is preserved. The spinous processes appear intact. There is moderate multilevel cervical spondylosis. Uncovertebral and facet arthropathy contribute to neural foraminal narrowing at several levels. Minimal anterior wedging of T1 is unchanged from previous. Intervertebral discs: There is moderate to advanced disc space narrowing at all cervical levels between C3-C4 and C6-C7. Central canal: Posterior disc osteophyte complexes are seen at all cervical levels between C3-C4 and C6-C7. This likely contributes to multilevel acquired compromise of the central canal. Soft tissues: The prevertebral and paraspinous soft tissues are within normal limits. There is atherosclerotic calcification of the carotid bulbs. Calvarium: The visualized calvarium at the skull base appears intact. Brain parenchyma: Partially visualized brain parenchyma at the skull base is within normal limits noting age-related involutional change. Sinuses and mastoids: There is mucosal thickening within the ethmoid sinuses. Trace mucosal thickening is also seen in the right maxillary antrum. The mastoid air cells are well pneumatized. Lung apices: Clear as visualized. IMPRESSION: 1. There is no evidence of fracture or subluxation involving the cervical spine. 2. Osteopenia and spondylotic change as above. ACT 112: Negative or not required by law. Electronically signed by: Armen Alva M.D. 12/30/2021 7:17 AM Chest X-Ray 12/30/21 02:00 XR chest 1V portable HISTORY: Cough. weakness COMPARISON: Chest 02/10/2021. FINDINGS: No pneumothorax. The heart remains mildly enlarged. There are low lung volumes. There is a new right perihilar lobular density measuring 2.9 cm. Interstitial thickening at the lung bases has progressed. No pleural effusions. IMPRESSION: 1. There is a new right perihilar lobular density. Follow-up chest CT recommended to evaluate for a possible mass. 2. Progressive interstitial thickening which may be due to the low lung volumes or an interstitial pneumonitis. 3. Mild cardiomegaly. ACT 112: Negative or not required by law. Electronically signed by: Gildardo Alves M.D. 12/30/2021 9:[address] 12/30/21 02:[address] DOSE: HISTORY: fall, weak TECHNIQUE: Multiaxial CT images of the head were performed without the use of intravenous contrast. Automated exposure control was utilized for this study. A dose lowering technique was utilized adhering to the principles of ALARA. Comparison: Head CT 02/10/2021. Findings: The paranasal sinuses and mastoid air cells are clear. The calvarium and skull base are intact. There is no mass, hematoma, midline shift, acute infarct. White matter hypodensity is nonspecific but suggestive of microvascular ischemic change. The ventricles and sulci demonstrate mild age-related involutional changes. Old small right frontal lobe infarct. Impression: No significant change compared to the prior study. No acute intracranial abnormality. ACT 112: Negative or not required by law. Electronically signed by: Gildardo Alves M.D. 12/30/2021 7:11 AM Chest CTA 12/30/21 02:50 CT ANGIOGRAM OF THE CHEST CLINICAL HISTORY: Cough and dyspnea. COMPARISON STUDY: Chest x-ray dated 12/30/2021. Chest CT dated 06/09/2018. TECHNIQUE: Following the IV administration of 112 cc of Optiray 300, CT angiogram of the chest was performed from the upper abdomen to the thoracic inlet utilizing the pulmonary embolus protocol. Images are reviewed in the axial, sagittal, and coronal planes. 3-D MIPS images are created and assessed. IV contrast was administered without complication. A dose lowering technique was utilized adhering to the principles of ALARA. The examination is significantly degraded by motion artifact. CT DOSE: 384.77 mGy.cm FINDINGS: Thyroid: Imaged portions of the thyroid gland are normal in size and attenuation. Thoracic aorta: There is atherosclerotic calcification of the thoracic aorta. There is mild dilatation of the ascending thoracic aorta which measures up to 4.5 cm. This is similar to previous. The remainder of the thoracic aorta is normal in caliber, and the arch demonstrates standard 3-vessel anatomy. No dissection is seen. Pulmonary vasculature: The main pulmonary arteries are dilated suggesting pulmonary artery hypertension. There are no filling defects identified in main, lobar, or segmental pulmonary branches to suggest pulmonary embolus. The distal segmental and subsegmental branches are not well assessed due to motion artifact. Heart: The heart is enlarged and without pericardial effusion. The coronary arteries are densely calcified. Lungs and pleural spaces: Evaluation of the lung parenchyma is compromised by motion artifact. There is an approximately 4 x 4 x 4 cm focus of round airspace consolidation in the perihilar right upper lobe. This is best seen on image #133, and extends to the hilum. A 4 mm right upper lobe pulmonary nodule is seen on image #157. A 3 mm pulmonary nodule is seen in the right middle lobe on image #112, and a 4 mm pleural-based nodule at the left lung base as seen on image #62. The subcentimeter nodules are unchanged from 06/09/2018. There are bilateral fat-containing Bochdalek hernias. Foci of subpleural parenchymal scarring are again seen throughout both lungs. No pleural effusion is identified. The trachea and central airways are clear. Mediastinum: There 4 enlarged mediastinal lymph nodes. A precarinal node on image #146 measures 4.5 x 2.9 cm. A prevascular node on image #179 measures 8 mm in short axis. Carol: There is likely right hilar adenopathy. The left hilum appears clear. Axillae: There is no axillary lymphadenopathy. Upper abdomen: Cholecystectomy clips are noted. There is a small hiatal hernia. Calcified granulomas are present in the spleen. No adrenal lesion is seen. Skeletal structures: The skeletal structures are osteopenic. No lytic or blastic bony lesions are seen. Degenerative change is noted in the shoulders and thoracic spine. IMPRESSION: 1. There is no evidence of pulmonary embolus in the main, lobar, or segmental pulmonary arteries. 2. There is an approximately 4 cm round focus of masslike consolidation in the perihilar right upper lobe. Although this could represent a round pneumonia, underlying neoplasm is not excluded. Clinical correlation will be required. A follow-up chest CT in 1 month's time is recommended for reassessment. 3. There is likely right hilar adenopathy, as well as significantly enlarged mediastinal nodes. 4. Additional subcentimeter pulmonary nodules are unchanged from 06/09/2018. 5. There is aneurysmal dilatation of the ascending thoracic aorta which measures up to 4.5 cm. 6. Cardiomegaly. 7. Additional findings as above. ACT 112: Positive. There are findings on this exam that require communication between the performing entity and the patient following Patient Test Result Information Act ([place] Act 112) guidelines. Electronically signed by: Armen Alva M.D. 12/30/2021 9:58 AM
[2022-01-03] MEDS: amLODIPine BESYLATE 5 MG TAB PO SCH (20:01)
[2022-01-03] MEDS: guaiFENesin/CODEINE 100MG/10MG 5ML UDC PO PRN (20:14)
[2022-01-04] MEDS: ENOXAPARIN INJ 40 MG/0.4 ML SYR SQ SCH (05:49)
[2022-01-04] MEDS: cefTRIAXone SODIUM 1,000 MG in DEXTROSE 5% 50 ML IV SCH (05:50)
[2022-01-04] MEDS: guaiFENesin/CODEINE 100MG/10MG 5ML UDC PO PRN ×2 (05:51→20:45)
[2022-01-04] MEDS ORDERED: ENOXAPARIN INJ 30 MG/0.3 ML SYR SQ SCH (06:30)
[2022-01-04 07:31] LABS: Basophils # (auto) 0.05 K/uL (0-0.2); Basophils % (auto) 0.5 %; Eosinophils # (auto) 0.38 K/uL (0-0.50); Eosinophils % (auto) 3.9 %; Hematocrit (blood only) 32.5 % (40.1-51.0); Hemoglobin 11.6 g/dl (14.0-18.0); Immature Granulocytes # (auto) 0.04 K/uL (0.00-0.02); Immature Granulocytes % (auto) 0.4 %; Lymphocytes # (auto) 0.93 K/uL (1.2-3.4); Lymphocytes % (auto) 9.5 %; Mean Corpuscular Hemoglobin 31.4 pg (25.0-34.0); Mean Corpuscular Hgb Conc 35.7 g/dL (32.0-36.0); Mean Corpuscular Volume 87.8 fL (80.0-100.0); Monocytes # (auto) 1.22 K/uL (0.24-0.82); Monocytes % (auto) 12.4 %; Neutrophils # (auto) 7.19 K/uL (1.4-6.5); Neutrophils % (auto) 73.3 %; Platelet Count 336 K/uL (130-400); RDW Coefficient of Variation 13.2 % (11.5-14.5); RDW Standard Deviation 42.4 fL (36.4-46.3); White Blood Count 9.81 K/ul (4.8-10.8)
--- NOTE | 2022-01-04 07:40 | Nephrology Progress Note ---
Date of Service January 04, 2022 Assessment & Plan (1) RAMEZ (acute kidney injury): Plan: renal function worse today from baseline 1.2-1.3 creat > 1.8 today; nonoliguric stage 1 RAMEZ on CKD3A > liberalized FR as below; >uacm ordered >check PVR; suggest camara if > 200 mL retained -strict I/O >lisinopril held >check CK on doxy >give 500mL NS bolus and recheck bmp this PM Care coordinated w/ Dr Webster (2) Acute hyponatremia: Plan: hyponatremia due to SIADH in setting of COVID infection, resolving. Sodium is 128 01/03, 01/04 is 131. Note I/O are incomplete - -continue to try to get most accurate I/O possible but would not do camara -cont increased urea 30 g twice daily -fluid restriction of 1.5 L daily liberalized from 1.2L/day >would ask case mgt and/or d/c planners to find out cost of d/c on urea 15 gm bid as he is likely to need at least this on d/c (3) COVID-19: Plan: Patient with COVID-pneumonia. He is saturating well on room air. No need for diuretics at the moment. Admission and Anticipated Discharge Date Admission Date: December 30, 2021 Subjective asking about d/c; still tired; no sob, no cough; looks like minimal PO > most of brkfast at bedside late AM; No N, no uncontrolled pain Review of Systems Review of Systems: All systems reviewed & are unremarkable except as noted in Subjective Physical Exam Constitutional: well developed and well nourished Eyes: EOM intact 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 ENMT: Ears: no external ear abnormality Nose: no external nose abnormality Mouth: + dry oral mucous membranes Neck: no nuchal rigidity Respiratory: normal respiratory effort; no cough Auscultation: + diminished lung sounds and + crackles (bibasilar) Cardiovascular: Rate/Rhythm: regular rhythm and + bradycardic Extremities: no edema Gastrointestinal (Abdomen): Inspection/Auscultation: normal bowel sounds Percussion/Palpation: abdomen soft; abdomen nontender Musculoskeletal: Extremities: strength 5/5 throughout Skin: no rashes, warm and dry Neurologic: lethargic and hoarse but speaks appropriatley, tse Results & Data ([facility]) Vital Signs (Past 12 Hours) Vital Signs Temp Pulse Pulse Resp BP Pulse Ox O2 Del Method 01/04/22 04:00 36.4 C L 58 L 20 103/66 96 Room Air 01/04/22 00:23 63 01/03/22 22:00 36.8 C 74 18 94/64 L 95 Room Air 01/03/22 20:20 Room Air 01/03/22 19:56 36.9 C 64 18 119/76 95 Room Air Laboratory Results 01/04/22 06:55
[2022-01-04] MEDS: METOPROLOL SUCC 25MG EXT REL TAB PO SCH (08:22)
[2022-01-04] MEDS: PANTOprazole 40 MG TAB PO SCH (08:23)
[2022-01-04] MEDS: UREA (UREA-NA) 15 GM PACK PO SCH ×2 (08:23→20:34)
[2022-01-04] MEDS: MULTIVITAMIN TAB PO SCH (08:23)
[2022-01-04] MEDS: lisinopril 20 MG TAB PO SCH (08:23)
[2022-01-04] MEDS: CLOPIDOGREL BISULFATE 75 MG TAB PO SCH (08:23)
[2022-01-04] MEDS: ATORVASTATIN 40 MG TAB PO SCH (08:23)
[2022-01-04] MEDS: DOXYCYCLINE HYCLATE 100 MG CAP PO SCH ×2 (08:24→20:38)
[2022-01-04] MEDS: KETOCONAZOLE 2% CR 15 GM TUBE EXT SCH ×2 (08:24→20:44)
[2022-01-04 08:54] LABS: BUN Creatinine Ratio 48.9 (10-20); Calcium 9.7 mg/dl (8.5-10.1); Creatinine Clr Calc Pharmacy 27.4 ml/min; Est GFR (African American) 39.4 ml/min; Potassium 4.4 mmol/L (3.5-5.1)
[2022-01-04] MEDS ORDERED: SODIUM CHLORIDE 0.9% 1000ML 500 ML IV ONE (11:46)
--- NOTE | 2022-01-04 12:00 | Hospitalist Progress Note ---
Date of Service January 04, 2022 Assessment & Plan (1) Acute hyponatremia: (2) Weakness: (3) COVID-19: Plan 86-year-old male with PMH of B-cell lymphoma s/p radiation, CAD s/p stent, CKD, dementia, CVA without any residual weakness, HTN, HLD, COVID pneumonia in August 2020, thoracic aortic aneurysm, left eye blindness, mild aortic regurgitation who lives at home with his daughter/ambulates with a walker was brought in 12/30 due to ongoing cough for last 2 weeks COLLETER. Also the patient was getting weaker and balance has gotten wobbly while ambulating for the same time. He was tested positive for COVID again at ED. He had diarrhea since last 1 to 2 days COLLETER. He is being managed for the following: ADMITTING IMAGINGS: Admitting C-spine CT: Osteopenia/spondylotic changes. No acute findings. Admitting CT head with no new acute findings. Admitting CXR: New right perihilar lobular density. Progressive interstitial thickening suggestive of interstitial pneumonitis. Admitting CTA chest: No evidence of PE. 4 cm round focus of masslike consolidation in the perihilar RUL. Suggestive of pneumonia versus neoplasm. Follow-up CT in 1 month. There is likely right hilar adenopathy, as well as significantly enlarged mediastinal nodes. Ascending thoracic aorta aneurysm measuring 4.5 cm. Pt follows w/ Dr. Longoria Q6 Mo. OP f/u needed. RUL pneumonia/ Pneumonia due to COVID-19 virus and possible bacterial pneumonia- COVID 19 infection: Not vaccinated, was COVID positive in August 2020, again positive at ED on 12/30/2021. Likely metabolic encephalopathy: Secondary to above plus hyponatremia on the background of dementia, patient is confused at baseline with good and bad days per patient's daughter and generally oriented during good days. Admitting UA negative.He is back to his baseline. Patient presenting with cough for 2 weeks COLLETER associated with progressive weakness and worsening balance. Admitting CXR and CTA chest as above. Admitting respiratory panel negative except for COVID. Patient started on Rocephin and doxycycline 12/30, continue total of 7 days. Patient on room air, incentive spirometer as able. Discussed with pulmonology 12/30 , continue with antibiotics and repeat CT scan of the chest in 4 to 6 weeks . Patient will likely need bronchoscopy if with no resolution of RUL masslike consolidation. Patient will need repeat CT of the chest in 1 month. Discussed with daughter On 01/03/2022 Regarding the finding Of the CT scan And discussion with the pulmonology.She understood and verbalized. Patient to have follow-up CT scan After discharge. Hyponatremia: Admitting sodium 124. B SIADH. Serum osmolality 266, urine osmolality 565 and urine random sodium 112. Nephrology on board, on fluid restriction and oral urea. Na improved to 135 today. Acute kidney injury; Most likely prerenal- Patient's blood pressure Was reduced to 120-130With addition of amlodipine and increment of his lisinopril.Will hold off on lisinopril and Amlodipine and allow Blood pressure to rise.Will obtain BMP in the evening.Nephrology on board. Other chronic medical conditions: CAD status post stent, HTN, GERD, HLD, mild dementia, thoracic aortic aneurysm [needs follow-up], prediabetes, CVA, left eye blindness, CKD stage III, B-cell lymphoma status post radiation -->> continue with/resume home meds as and when able. Lisinopril increased and amlod added d/t uncontrolled HTN. Prn hydralazine on board. DVT prophylaxis: Lovenox CODE STATUS: DNR/DNI Disposition :Discussed with daughter regarding placement to rehab.She Prefers him to come back home with her. will follow-up on [facility] from tomorrow and decide on discharge. Admission and Anticipated Discharge Date Admission Date: December 30, 2021 Subjective Patient seen and examined at bedside. He is comfortably sitting up on the bed; not in any distress. He continues to saturate well in room air. Review of Systems Review of Systems: All systems reviewed & are unremarkable except as noted in Subjective Physical Exam Physical Exam: GENERAL: sleepy but awakeable; oriented to self. needs frequent redirection. Hard of hearing. HEENT: No pallor, no icterus. Left eye blindness. Right pupil reactive to light. Oral mucosa moist. NECK: No JVD, no neck masses. HEART: S1 and S2 heard. Regular rate and rhythm. No murmur, no gallop. RESPIRATORY SYSTEM: Normal AP diameter. No accessory muscle use. No wheezing, no crackles. ABDOMEN: Soft, bowel sounds present, nontender, no distention. CENTRAL NERVOUS SYSTEM: No facial droop. Moves extremities. EXTREMITIES: No edema, no erythema seen. Results & Data Results & Data ([facility]) Vital Signs (Past 12 Hours) Vital Signs Temp Pulse Pulse Resp BP BP Pulse Ox 01/04/22 11:42 36.6 C 51 L 18 115/73 96 01/04/22 08:10 36.5 C 54 L 18 108/69 96 01/04/22 04:00 36.4 C L 58 L 20 103/66 96 01/04/22 00:23 63 O2 Del Method 01/04/22 11:42 Room Air 01/04/22 08:10 Room Air 01/04/22 04:00 Room Air 01/04/22 00:23 Laboratory Results Laboratory Results WBC 9.81 K/ul (4.8-10.8) 01/04/22 06:55 RBC 3.70 M/uL (4.63-6.08) L 01/04/22 06:55 Hgb 11.6 g/dl (14.0-18.0) L 01/04/22 06:55 Hct 32.5 % (40.1-51.0) L 01/04/22 06:55 MCV 87.8 fL (80.0-100.0) 01/04/22 06:55 MCH 31.4 pg (25.0-34.0) 01/04/22 06:55 MCHC 35.7 g/dL (32.0-36.0) 01/04/22 06:55 RDW Std Deviation 42.4 fL (36.4-46.3) 01/04/22 06:55 RDW Coeff of Roderick 13.2 % (11.5-14.5) 01/04/22 06:55 Plt Count 336 K/uL (130-400) 01/04/22 06:55 MPV 10.0 fL (9.4-12.4) 01/04/22 06:55 Immature Gran % (Auto) 0.4 % 01/04/22 06:55 Neut % (Auto) 73.3 % 01/04/22 06:55 Lymph % (Auto) 9.5 % 01/04/22 06:55 [place] % (Auto) 12.4 % 01/04/22 06:55 Eos % (Auto) 3.9 % 01/04/22 06:55 Baso % (Auto) 0.5 % 01/04/22 06:55 Reticulocyte % (Auto) 1.5 % (0.5-2.0) 12/30/21 08:56 Neut # (Auto) 7.19 K/uL (1.4-6.5) H 01/04/22 06:55 Lymph # (Auto) 0.93 K/uL (1.2-3.4) L 01/04/22 06:55 [place] # (Auto) 1.22 K/uL (0.24-0.82) H 01/04/22 06:55 Eos # (Auto) 0.38 K/uL (0-0.50) 01/04/22 06:55 Baso # (Auto) 0.05 K/uL (0-0.2) 01/04/22 06:55 Reticulocyte # 0.05 10^6/uL (0.02-0.10) 12/30/21 08:56 Immature Gran # (Auto) 0.04 K/uL (0.00-0.02) H 01/04/22 06:55 Haptoglobin 186 mg/dL (43-212) 12/30/21 19:14 Sodium 135 mmol/L (136-145) L 01/04/22 06:55 Potassium 4.4 mmol/L (3.5-5.1) 01/04/22 06:55 Chloride 100 mmol/L (98-107) 01/04/22 06:55 Carbon Dioxide 26 mmol/L (21-32) 01/04/22 06:55 Anion Gap 9 (3-11) 01/04/22 06:55 BUN 87 mg/dl (6-23) H D 01/04/22 06:55 Creatinine 1.78 mg/dl (0.6-1.4) H D 01/04/22 06:55 Est Cr Clr Drug Dosing 27.4 ml/min 01/04/22 06:55 Est GFR ( Amer) 39.4 ml/min 01/04/22 06:55 Est GFR (Non-Af Amer) 34.0 ml/min 01/04/22 06:55 BUN/Creatinine Ratio 48.9 (10-20) H 01/04/22 06:55 Glucose 100 mg/dl (70-99(Fasting)) H 01/04/22 06:55 Osmolality 266 mOsm/kg (280-300) L 12/30/21 01:52 Uric Acid 4.1 mg/dl (2.6-7.2) 12/30/21 13:05 Calcium 9.7 mg/dl (8.5-10.1) 01/04/22 06:55 Phosphorus 3.1 mg/dl (2.5-4.9) 01/01/22 05:52 Magnesium 1.9 mg/dl (1.7-2.4) 01/02/22 06:14 Iron 65 mcg/dl (35-175) 12/31/21 06:44 TIBC 233 mcg/dl (250-450) L 12/31/21 06:44 Unsaturated IBC 168 mcg/dl (155-355) 12/31/21 06:44 Transferrin % Sat 28 % (20-50) 12/31/21 06:44 Total Bilirubin 0.8 mg/dl (0.2-1.0) 12/30/21 01:52 AST 28 U/L (13-39) 12/30/21 01:52 ALT 24 U/L (7-52) 12/30/21 01:52 Alkaline Phosphatase 72 U/L (34-104) 12/30/21 01:52 Lactate Dehydrogenase 161 U/L (86-244) 12/30/21 13:05 Total Creatine Kinase 149 U/L (30-223) 12/30/21 01:52 Troponin I High Sens 8.3 pg/ml (0-20) 12/30/21 01:52 Total Protein 7.0 gm/dl (6.0-8.3) 12/30/21 01:52 Albumin 4.3 gm/dl (3.4-5.0) 12/30/21 01:52 Globulin 2.7 gm/dl (2.5-4.0) 12/30/21 01:52 Albumin/Globulin Ratio 1.6 (0.9-2) 12/30/21 01:52 TSH 4.118 uIu/ml (0.300-4.500) 12/30/21 01:52 Urine Color Yellow 12/30/21 12:10 Urine Appearance Clear (Clear) 12/30/21 12:10 Urine pH 6.0 (4.5-7.5) 12/30/21 12:10 Ur Specific [place] 1.044 (1.000-1.030) H 12/30/21 12:10 Urine Protein Trace (Negative) H 12/30/21 12:10 Urine Glucose (UA) Negative (Negative) 12/30/21 12:10 Urine Ketones Negative (Negative) 12/30/21 12:10 Urine Blood Negative (Negative) 12/30/21 12:10 Urine Nitrite Negative (Negative) 12/30/21 12:10 Urine Bilirubin Negative (Negative) 12/30/21 12:10 Urine Urobilinogen Negative (Negative) 12/30/21 12:10 Ur Leukocyte Esterase Negative (Negative) 12/30/21 12:10 Urine WBC (Auto) 1-5 /hpf (0-5) 12/30/21 12:10 Urine RBC (Auto) 0-4 /hpf (0-4) 12/30/21 12:10 U Hyaline Cast (Auto) 0 /lpf (0-5) 12/30/21 12:10 U Epithel Cells (Auto) 5-10 /lpf (0-5) H 12/30/21 12:10 Urine Bacteria (Auto) Negative (Negative) 12/30/21 12:10 Urine Osmolality 565 mOsm/kg (500-800) 12/30/21 12:10 Ur Random Sodium 112 mmol/L 12/30/21 12:10 Adenovirus (PCR) Not Detected (NotDetected) 12/30/21 02:04 B. pertussis DNA (PCR) Not Detected (NotDetected) 12/30/21 02:04 B.parapertussis DNA PCR Not Detected (NotDetected) 12/30/21 02:04 C. pneumoniae DNA (PCR) Not Detected (NotDetected) 12/30/21 02:04 Coronavirus OC43 (PCR) Not Detected (NotDetected) 12/30/21 02:04 Coronavirus HKU1 (PCR) Not Detected (NotDetected) 12/30/21 02:04 Coronavirus 229E (PCR) Not Detected (NotDetected) 12/30/21 02:04 SARS-CoV-2 (PCR) DETECTED (NotDetected) A* 12/30/21 02:04 Coronavirus NL63 (PCR) Not Detected (NotDetected) 12/30/21 02:04 Human Metapneumovir PCR Not Detected (NotDetected) 12/30/21 02:04 Influenza Type A (PCR) Not Detected (NotDetected) 12/30/21 02:04 Influenza Type B (PCR) Not Detected (NotDetected) 12/30/21 02:04 M. pneumoniae (PCR) Not Detected (NotDetected) 12/30/21 02:04 Parainfluenza 1 (PCR) Not Detected (NotDetected) 12/30/21 02:04 Parainfluenza 2 (PCR) Not Detected (NotDetected) 12/30/21 02:04 Parainfluenza 3 (PCR) Not Detected (NotDetected) 12/30/21 02:04 Parainfluenza 4 (PCR) Not Detected (NotDetected) 12/30/21 02:04 RSV (PCR) Not Detected (NotDetected) 12/30/21 02:04 Entero/Rhino (PCR) Not Detected (NotDetected) 12/30/21 02:[address] 12/30/21 02:00 CT SCAN OF THE CERVICAL SPINE CLINICAL HISTORY: Fall. COMPARISON STUDY: CT angiogram of the neck dated 02/23/2020. TECHNIQUE: CT scan of the cervical spine is performed from the skull base to the upper thoracic spine. Images are reviewed in the axial, sagittal, and coronal planes. IV contrast was not administered for this examination. A dose lowering technique was utilized adhering to the principles of ALARA. CT DOSE: 1038.61 mGy.cm FINDINGS: Skeletal structures: The skeletal structures are osteopenic. There is no evidence of fracture or subluxation involving the cervical spine. Vertebral body height and alignment are maintained. There is straightening of the cervical lordosis with reversal centered at C4-C5. Anterior osteophytes are seen throughout. The odontoid process and lateral masses are intact. The atlantoaxial articulation is preserved. The spinous processes appear intact. There is moderate multilevel cervical spondylosis. Uncovertebral and facet arthropathy contribute to neural foraminal narrowing at several levels. Minimal anterior wedging of T1 is unchanged from previous. Intervertebral discs: There is moderate to advanced disc space narrowing at all cervical levels between C3-C4 and C6-C7. Central canal: Posterior disc osteophyte complexes are seen at all cervical levels between C3-C4 and C6-C7. This likely contributes to multilevel acquired compromise of the central canal. Soft tissues: The prevertebral and paraspinous soft tissues are within normal limits. There is atherosclerotic calcification of the carotid bulbs. Calvarium: The visualized calvarium at the skull base appears intact. Brain parenchyma: Partially visualized brain parenchyma at the skull base is within normal limits noting age-related involutional change. Sinuses and mastoids: There is mucosal thickening within the ethmoid sinuses. Trace mucosal thickening is also seen in the right maxillary antrum. The mastoid air cells are well pneumatized. Lung apices: Clear as visualized. IMPRESSION: 1. There is no evidence of fracture or subluxation involving the cervical spine. 2. Osteopenia and spondylotic change as above. ACT 112: Negative or not required by law. Electronically signed by: Armen Alva M.D. 12/30/2021 7:17 AM Chest X-Ray 12/30/21 02:00 XR chest 1V portable HISTORY: Cough. weakness COMPARISON: Chest 02/10/2021. FINDINGS: No pneumothorax. The heart remains mildly enlarged. There are low lung volumes. There is a new right perihilar lobular density measuring 2.9 cm. Interstitial thickening at the lung bases has progressed. No pleural effusions. IMPRESSION: 1. There is a new right perihilar lobular density. Follow-up chest CT recommended to evaluate for a possible mass. 2. Progressive interstitial thickening which may be due to the low lung volumes or an interstitial pneumonitis. 3. Mild cardiomegaly. ACT 112: Negative or not required by law. Electronically signed by: Gildardo Alves M.D. 12/30/2021 9:[address] 12/30/21 02:[address] DOSE: HISTORY: fall, weak TECHNIQUE: Multiaxial CT images of the head were performed without the use of intravenous contrast. Automated exposure control was utilized for this study. A dose lowering technique was utilized adhering to the principles of ALARA. Comparison: Head CT 02/10/2021. Findings: The paranasal sinuses and mastoid air cells are clear. The calvarium and skull base are intact. There is no mass, hematoma, midline shift, acute infarct. White matter hypodensity is nonspecific but suggestive of microvascular ischemic change. The ventricles and sulci demonstrate mild age-related involutional changes. Old small right frontal lobe infarct. Impression: No significant change compared to the prior study. No acute intracranial abnormality. ACT 112: Negative or not required by law. Electronically signed by: Gildardo Alves M.D. 12/30/2021 7:11 AM Chest CTA 12/30/21 02:50 CT ANGIOGRAM OF THE CHEST CLINICAL HISTORY: Cough and dyspnea. COMPARISON STUDY: Chest x-ray dated 12/30/2021. Chest CT dated 06/09/2018. TECHNIQUE: Following the IV administration of 112 cc of Optiray 300, CT angiogram of the chest was performed from the upper abdomen to the thoracic inlet utilizing the pulmonary embolus protocol. Images are reviewed in the axial, sagittal, and coronal planes. 3-D MIPS images are created and assessed. IV contrast was administered without complication. A dose lowering technique was utilized adhering to the principles of ALARA. The examination is significantly degraded by motion artifact. CT DOSE: 384.77 mGy.cm FINDINGS: Thyroid: Imaged portions of the thyroid gland are normal in size and attenuation. Thoracic aorta: There is atherosclerotic calcification of the thoracic aorta. There is mild dilatation of the ascending thoracic aorta which measures up to 4.5 cm. This is similar to previous. The remainder of the thoracic aorta is normal in caliber, and the arch demonstrates standard 3-vessel anatomy. No dissection is seen. Pulmonary vasculature: The main pulmonary arteries are dilated suggesting pulmonary artery hypertension. There are no filling defects identified in main, lobar, or segmental pulmonary branches to suggest pulmonary embolus. The distal segmental and subsegmental branches are not well assessed due to motion artifact. Heart: The heart is enlarged and without pericardial effusion. The coronary arteries are densely calcified. Lungs and pleural spaces: Evaluation of the lung parenchyma is compromised by motion artifact. There is an approximately 4 x 4 x 4 cm focus of round airspace consolidation in the perihilar right upper lobe. This is best seen on image #133, and extends to the hilum. A 4 mm right upper lobe pulmonary nodule is seen on image #157. A 3 mm pulmonary nodule is seen in the right middle lobe on image #112, and a 4 mm pleural-based nodule at the left lung base as seen on image #62. The subcentimeter nodules are unchanged from 06/09/2018. There are bilateral fat-containing Bochdalek hernias. Foci of subpleural parenchymal scarring are again seen throughout both lungs. No pleural effusion is identified. The trachea and central airways are clear. Mediastinum: There 4 enlarged mediastinal lymph nodes. A precarinal node on image #146 measures 4.5 x 2.9 cm. A prevascular node on image #179 measures 8 mm in short axis. Carol: There is likely right hilar adenopathy. The left hilum appears clear. Axillae: There is no axillary lymphadenopathy. Upper abdomen: Cholecystectomy clips are noted. There is a small hiatal hernia. Calcified granulomas are present in the spleen. No adrenal lesion is seen. Skeletal structures: The skeletal structures are osteopenic. No lytic or blastic bony lesions are seen. Degenerative change is noted in the shoulders and thoracic spine. IMPRESSION: 1. There is no evidence of pulmonary embolus in the main, lobar, or segmental pulmonary arteries. 2. There is an approximately 4 cm round focus of masslike consolidation in the perihilar right upper lobe. Although this could represent a round pneumonia, underlying neoplasm is not excluded. Clinical correlation will be required. A follow-up chest CT in 1 month's time is recommended for reassessment. 3. There is likely right hilar adenopathy, as well as significantly enlarged mediastinal nodes. 4. Additional subcentimeter pulmonary nodules are unchanged from 06/09/2018. 5. There is aneurysmal dilatation of the ascending thoracic aorta which measures up to 4.5 cm. 6. Cardiomegaly. 7. Additional findings as above. ACT 112: Positive. There are findings on this exam that require communication between the performing entity and the patient following Patient Test Result Information Act ([place] Act 112) guidelines. Electronically signed by: Armen Alva M.D. 12/30/2021 9:58 AM
[2022-01-04 18:48] LABS: BUN Creatinine Ratio 53.5 (10-20); Calcium 9.7 mg/dl (8.5-10.1); Creatinine Clr Calc Pharmacy 26.3 ml/min; Est GFR (African American) 37.6 ml/min; Est GFR (Non-African American) 32.5 ml/min; Potassium 4.2 mmol/L (3.5-5.1)
[2022-01-04] MEDS: amLODIPine BESYLATE 5 MG TAB PO SCH (20:32)
[2022-01-04 22:31] LABS: Appearance Urine Clear (Clear); Bilirubin Urine Negative (Negative); Blood Urine Negative (Negative); Color Urine Yellow; Glucose Urine UA Negative (Negative); Ketones Urine Trace (Negative); Leukocyte Esterase Urine Negative (Negative); Nitrite Urine Negative (Negative); Protein Urine Negative (Negative); Specific Gravity Urine 1.019 (1.000-1.030); Urobilinogen Urine Negative (Negative); pH Urine 5.5 (4.5-7.5)
[2022-01-05] MEDS: cefTRIAXone SODIUM 1,000 MG in DEXTROSE 5% 50 ML IV SCH (05:12)
[2022-01-05 07:14] LABS: Basophils # (auto) 0.06 K/uL (0-0.2); Basophils % (auto) 0.6 %; Eosinophils % (auto) 3.2 %; Hematocrit (blood only) 33.1 % (40.1-51.0); Hemoglobin 11.5 g/dl (14.0-18.0); Immature Granulocytes # (auto) 0.03 K/uL (0.00-0.02); Immature Granulocytes % (auto) 0.3 %; Lymphocytes # (auto) 1.04 K/uL (1.2-3.4); Lymphocytes % (auto) 11.2 %; Mean Corpuscular Hemoglobin 31.3 pg (25.0-34.0); Mean Corpuscular Hgb Conc 34.7 g/dL (32.0-36.0); Mean Corpuscular Volume 89.9 fL (80.0-100.0); Mean Platelet Volume 10.1 fL (9.4-12.4); Monocytes # (auto) 1.13 K/uL (0.24-0.82); Monocytes % (auto) 12.2 %; Neutrophils # (auto) 6.71 K/uL (1.4-6.5); Neutrophils % (auto) 72.5 %; Platelet Count 356 K/uL (130-400); RDW Standard Deviation 42.6 fL (36.4-46.3); Red Blood Count 3.68 M/uL (4.63-6.08); White Blood Count 9.27 K/ul (4.8-10.8)
[2022-01-05] MEDS: CLOPIDOGREL BISULFATE 75 MG TAB PO SCH (07:55)
[2022-01-05] MEDS: UREA (UREA-NA) 15 GM PACK PO SCH (07:55)
[2022-01-05] MEDS: MULTIVITAMIN TAB PO SCH (07:55)
[2022-01-05] MEDS: METOPROLOL SUCC 25MG EXT REL TAB PO SCH (07:56)
[2022-01-05] MEDS: PANTOprazole 40 MG TAB PO SCH (07:56)
[2022-01-05] MEDS: ATORVASTATIN 40 MG TAB PO SCH (07:56)
[2022-01-05] MEDS: KETOCONAZOLE 2% CR 15 GM TUBE EXT SCH (07:57)
[2022-01-05] MEDS: DOXYCYCLINE HYCLATE 100 MG CAP PO SCH (07:57)
[2022-01-05] MEDS ORDERED: ENOXAPARIN INJ 30 MG/0.3 ML SYR SQ SCH (08:00)
[2022-01-05 08:18] LABS: BUN Creatinine Ratio 60.6 (10-20); Calcium 9.8 mg/dl (8.5-10.1); Creatinine Clr Calc Pharmacy 30.5 ml/min; Est GFR (African American) 44.9 ml/min; Est GFR (Non-African American) 38.7 ml/min
--- NOTE | 2022-01-05 11:53 | Nephrology Progress Note ---
Date of Service January 05, 2022 Assessment & Plan (1) Acute hyponatremia: Plan: hyponatremia due to SIADH in setting of COVID infection versus ? relation to possible RUL mass, resolving. Sodium is 128 01/03, 01/04 is 131, 01/05 is 136. Costs $180 for 2 wk supply of urea out of pocket, so not feasible d/c med NEPHROLOGY DISCHARGE RECOMMENDATIONS -d/c on 1.5 L daily FR >>pls offer pt education on how to count fluids >> hospitalist has d/w daughter -d/c on NaCl tabs 1 gm bid -hold lisinopril at discharge -WEEKLY BMP x3 and with first labs ONE TIME serum osms, urine osms, rd urine sodium to be ordered by outpt neph RN -hospital discharge f/u w/ nephrology [facility] any physician 2-3 wks after discharge -ensure f/u CT scan chest / RUL per recommendations Care coordinated w/ Dr Webster (2) RAMEZ (acute kidney injury): Plan: renal function worse abruptly 01/04 in setting of ongoing lisinopril and relative hypotension and decreased po intake; up from baseline 1.2-1.3 creat > peaked 1.9 01/04 PM; down to 1.6 01/05 today; nonoliguric stage 1 RAMEZ on CKD3A improving w/ bland UACM >f/u labs and d/c meds as above (3) COVID-19: Plan: Patient with COVID-pneumonia. He is saturating well on room air. No need for diuretics at the moment and not on them as OP. Admission and Anticipated Discharge Date Admission Date: December 30, 2021 Physical Exam Constitutional: well developed and well nourished Eyes: EOM intact bilaterally ENMT: Ears: no external ear abnormality Nose: no external nose abnormality Mouth: + dry oral mucous membranes Neck: no nuchal rigidity Respiratory: normal respiratory effort; no cough Auscultation: + diminished lung sounds and + crackles (bibasilar) Cardiovascular: Rate/Rhythm: regular rhythm and + bradycardic Extremities: no edema Gastrointestinal (Abdomen): Inspection/Auscultation: normal bowel sounds Percussion/Palpation: abdomen soft; abdomen nontender Musculoskeletal: Extremities: strength 5/5 throughout Skin: no rashes, warm and dry Results & Data ([facility]) Vital Signs (Past 12 Hours) Vital Signs Temp Pulse Pulse Resp BP BP Pulse Ox 01/05/22 07:58 36.6 C 66 18 102/64 97 01/05/22 07:04 66 01/05/22 04:34 36.8 C 56 L 18 116/66 91 01/05/22 02:42 64 O2 Del Method 01/05/22 07:58 Room Air 01/05/22 07:04 01/05/22 04:34 Room Air 01/05/22 02:42 Laboratory Results 01/05/22 06:53 01/05/22 06:53 [facility] reviewed Diagnostic Findings CTA 12/30 Thyroid: Imaged portions of the thyroid gland are normal in size and attenuation. Thoracic aorta: There is atherosclerotic calcification of the thoracic aorta. There is mild dilatation of the ascending thoracic aorta which measures up to 4.5 cm. This is similar to previous. The remainder of the thoracic aorta is normal in caliber, and the arch demonstrates standard 3-vessel anatomy. No dissection is seen. Pulmonary vasculature: The main pulmonary arteries are dilated suggesting pulmonary artery hypertension. There are no filling defects identified in main, lobar, or segmental pulmonary branches to suggest pulmonary embolus. The distal segmental and subsegmental branches are not well assessed due to motion artifact. Heart: The heart is enlarged and without pericardial effusion. The coronary arteries are densely calcified. Lungs and pleural spaces: Evaluation of the lung parenchyma is compromised by motion artifact. There is an approximately 4 x 4 x 4 cm focus of round airspace consolidation in the perihilar right upper lobe. This is best seen on image #133, and extends to the hilum. A 4 mm right upper lobe pulmonary nodule is seen on image #157. A 3 mm pulmonary nodule is seen in the right middle lobe on image #112, and a 4 mm pleural-based nodule at the left lung base as seen on image #62. The subcentimeter nodules are unchanged from 06/09/2018. There are bilateral fat-containing Bochdalek hernias. Foci of subpleural parenchymal scarring are again seen throughout both lungs. No pleural effusion is identified. The trachea and central airways are clear. Mediastinum: There 4 enlarged mediastinal lymph nodes. A precarinal node on image #146 measures 4.5 x 2.9 cm. A prevascular node on image #179 measures 8 mm in short axis. Carol: There is likely right hilar adenopathy. The left hilum appears clear. Axillae: There is no axillary lymphadenopathy. Upper abdomen: Cholecystectomy clips are noted. There is a small hiatal hernia. Calcified granulomas are present in the spleen. No adrenal lesion is seen. Skeletal structures: The skeletal structures are osteopenic. No lytic or blastic bony lesions are seen. Degenerative change is noted in the shoulders and thoracic spine. IMPRESSION: 1. There is no evidence of pulmonary embolus in the main, lobar, or segmental p ulmonary arteries. 2. There is an approximately 4 cm round focus of masslike consolidation in the p erihilar right upper lobe. Although this could represent a round pneumonia, underlying neoplasm is not excluded. Clinical correlation will be required. A follow-up chest CT in 1 month's time is recommended for reassessment. 3. There is likely right hilar adenopathy, as well as significantly enlarged mediastinal nodes. 4. Additional subcentimeter pulmonary nodules are unchanged from 06/09/2018. 5. There is aneurysmal dilatation of the ascending thoracic aorta which measures up to 4.5 cm. 6. Cardiomegaly.
[2022-01-05 12:01] VITALS: TEMP 98.1; O2SAT 93
[2022-01-05 12:53] VITALS: BP 102/64; PULSE 66
--- NOTE | 2022-01-05 13:43 | Discharge Summary ---
Date of Service January 05, 2022 Admission HPI Per Admitting Provider This is an 86-year-old male with past medical history significant for B-cell lymphoma, status post radiation; history of CAD, status post stent; chronic kidney disease; history of dementia; history of CVA without any residual weakness; history of hypertension; hyperlipidemia; history of COVID pneumonia in August 2020; history of thoracic aortic aneurysm; history of left eye blindness; mild aortic regurgitation, who lives at home with his daughter, ambulates with a walker, was brought in because of ongoing cough for the last 2 weeks. As his cough is not getting better and the patient is getting weaker and balance is wobbly while ambulating, daughter brought him into the hospital. The patient was found to be again COVID positive and sodium was 124. CAT scan showing multifocal pneumonia. The patient coughing in the room, no phlegm. Denies any headache. No neck pain, no chest pain, no shortness of breath, no nausea, no vomiting. Appetite is okay. Complains of slight mild left lower quadrant abdominal pain. He had one episode of diarrhea today and yesterday he had one episode of nausea, not micturating much, no swelling in the legs. Hemodynamically stable, saturating okay on room air. Admission Exam Per Admitting Provider GENERAL: The patient is of moderate build, not in acute distress. VITAL SIGNS: Temperature 36.4, pulse 56, respiratory rate 22, blood pressure 141/71, oxygen 96% on room air. HEENT: Left eye blindness. Right eye pupils are reactive to light. Oral mucosa moist. NECK: No JVD or neck masses. CARDIOVASCULAR: S1 and S2 heard. Regular rate and rhythm. No murmur, no gallop. RESPIRATORY SYSTEM: Normal AP diameter. No accessory muscle use. No wheezing, no crackles. ABDOMEN: Soft, bowel sounds present, nontender, no distention. CENTRAL NERVOUS SYSTEM: Alert and awake. Speech is clear. No facial droop. Obeys simple commands. Moves extremities. EXTREMITIES: No edema, no erythema. Principal Diagnosis Community-acquired pneumonia COVID-19 infection Hyponatremia Discharge Exam GENERAL: Alert, oriented to time and place. Hard of hearing. HEENT: No pallor, no icterus. Left eye blindness. Right pupil reactive to light. Oral mucosa moist. NECK: No JVD, no neck masses. HEART: S1 and S2 heard. Regular rate and rhythm. No murmur, no gallop. RESPIRATORY SYSTEM: Normal AP diameter. No accessory muscle use. No wheezing, no crackles. ABDOMEN: Soft, bowel sounds present, nontender, no distention. CENTRAL NERVOUS SYSTEM: No facial droop. Moves extremities. EXTREMITIES: No edema, no erythema seen. Discharge Data Allergies Allergy/AdvReac Type Severity Reaction Status Date / Time No Known Allergies Allergy Unknown Verified 01/23/21 11:29 Consultations 12/30/21 03:50 ED Decision to Admit Stat 12/30/21 08:00 Consult Nephrology Routine Ordered Studies 12/30/21 02:00 CT cervical spine wo con Urgent CT head/brain wo con Urgent 12/30/21 02:50 CT angio chest PE protocol Urgent Hospital Course (1) Acute hyponatremia: (2) Weakness: (3) COVID-19: Plan Patient is a 86-year-old male with PMH of B-cell lymphoma s/p radiation, CAD s/p stent, CKD, dementia, CVA without any residual weakness, HTN, HLD, COVID pneumonia in August 2020, thoracic aortic aneurysm, left eye blindness, mild aortic regurgitation who lives at home with his daughter/ambulates with a walker was brought in 12/30 due to 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 Also the patient was getting weaker and balance has gotten wobbly while ambulating for the same time. He was tested positive for COVID again at ED. 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 In the ED, patient underwent CT head without contrast and CT C- spine which did not show any acute findings. CTA chest showed 4 cm round masslike consolidation in the perihilar right upper lobe. Patient was also found to have hyponatremia with sodium of 124. Patient was admitted to telemetry floor for management of pneumonia, COVID-19 infection and hyponatremia. For the pneumonia, patient was started on Rocephin and doxycycline. He did not require any supplemental oxygen. Discussion was done regarding the CT chest finding with the trim crew supervisor; he was recommended to undergo CT chest in 1 month to follow-up on the resolution of the consultation. The findings was communicated with his daughter. Hyponatremia was managed with fluid restriction and oral urea tablets. During the hospitalization, patient developed RAMEZ for which his lisinopril was kept on hold. His sodium improved to 136 on the day of the discharge. Patient's insurance was not able to cover for oral urea. He was discharged home on fluid restriction and oral salt tablet as per recommendation by nephrology. He will follow-up with nephrology as outpatient. His lisinopril was kept on hold on discharge given his acute kidney injury. PT OT evaluation was done and patient was recommended to go to rehab. However, patient's daughter wanted the patient to return back home to live with her. Follow-up instruction were given to her daughter. He was prescribed oral antibiotics on discharge. Total Time Total Time Spent Total Time Spent (In Minutes): 35 Total Time Includes: Examination of the Patient, Discharge Planning, Medication Reconciliation, Communication With Other Providers and Other Discharge Plan Discharge Items Patient Disposition: Home - Self-Care Reason For Visit: COUGH Discharge Diagnosis: 1) RUL pneumonia 2) Covid 19 infection 3) Hyponatremia Condition on Discharge: Fair Activity: Resume your previous activity Non-emergency contact: Primary Care Provider Call non-emergency contact if: you have any medication questions and your symptoms worsen Follow-up/Referrals: Aleena Stout MD, PhD [Physician] - (You have been added to a cancellation wait list for a sooner appointment. Date & Time 03/15/2022 9:00 AM Provider Aleena Stout MD Department Nephrology, [facility] ) Joaquin Ramirez DO [Primary Care Provider] - (Date & Time 01/11/2022 11:20 AM Provider Joaquin Ramirez DO Department [facility] ) Diet: Regular Diet Texture: Easy to Chew Addtl Attending Provider Instructions: He was admitted to the hospital with right-sided pneumonia. You are also found to have COVID-19 infection. Please take following antibiotics for next 3 days: 1) cefdinir 300 mg twice daily 2) doxycycline 100 mg twice daily Please continue fluid restriction of 1.5 L(50 ounces). You are found to have low sodium. You are also prescribed salt tablet. Please take 1 g salt tablet twice daily. Please make appointment for nephrology (Dr. Stout) Please follow-up with your primary care doctor and make appointment lung doctor. Please scan done during the hospitalization showed 4 cm masslike consolidation in the right upper lobe of the lung. You will need CT scan chest done in 1 month to see the resolution. Please stop taking Lisinopril ( Antihypertensives) till you see the Nephrology. Pending Studies at Discharge: No Stand-Alone Forms: [facility], Smoking Cessation Medications and DC Order Prescriptions: New doxycycline hyclate 100 mg Capsule 100 mg PO BID 3 Days Qty: 6 0RF cefdinir 300 mg capsule 300 mg PO BID 3 Days Qty: 6 0RF sodium chloride 1 gram tablet 1,000 mg PO BID Qty: 30 0RF Continued nitroglycerin [Nitrostat] 0.4 mg Tablet, Sublingual 0.4 mg Sublingual DIRECTED PRN (Reason: Chest Pain) ketoconazole 2 % Cream 1 applic EXT BID Qty: 30 0RF Rx Instructions: Apply to rash on perineum multivitamin Tablet 1 tab PO DAILY Qty: 30 0RF atorvastatin 80 mg Tablet 80 mg PO QAM Qty: 30 0RF clopidogrel 75 mg tablet 75 mg PO DAILY Qty: 30 0RF pantoprazole 40 mg tablet,delayed release (DR/EC) 40 mg PO DAILY Qty: 30 0RF metoprolol succinate [Toprol XL] 25 mg Tablet Extended Release 24 Hr 12.5 mg PO DAILY Qty: 30 0RF Discontinued lisinopril 10 mg tablet 10 mg PO DAILY Qty: 30 0RF doxycycline hyclate [Vibramycin] 100 mg capsule 100 mg PO BID Qty: 6 0RF Discharge Orders: Discharge Order (Routine); Ordered 01/05/22 Ordered By: Janes Webster Admission Data Admit Date/Time: 12/30/21 04:53 Attending Provider: Janes Webster Admit Provider: Poncho Hunter Primary Care Provider: Joaquin Ramirez Other Providers: Aleena Stout ; Poncho Hunter ; [facility] Other Interventions: Discharge Summary Assessment (RN) Last Done: 01/05/22 12:52
--- NOTE | 2022-01-05 18:13 | Communication Note ---
Date of Service: January 05, 2022 Pt was d/c today before I could see him in person However his care was reviewed in detail and coordinated w/ Dr Webster NEPHROLOGY DISCHARGE RECOMMENDATIONS -d/c on 1.5 L daily FR >>pls offer pt education on how to count fluids >> hospitalist has d/w daughter -d/c on NaCl tabs 1 gm bid -hold lisinopril at discharge -WEEKLY BMP x3 and with first labs ONE TIME serum osms, urine osms, rd urine sodium to be ordered by outpt neph RN -hospital discharge f/u w/ nephrology [facility] [place] any physician 2-3 wks after discharge -ensure f/u CT scan chest / RUL per recommendation
== END 2022-01-05 13:45 | disposition home health service (06) | DRG 177 ==
LOC: ED 01:23 → SUATTDRO 04:53 → 2N 04:53
DX: E78.5 Hyperlipidemia, unspecified; U07.1 COVID-19; I44.0 Atrioventricular block, first degree; I25.10 Atherosclerotic heart disease of native coronary artery without angina pectoris; C81.90 Hodgkin lymphoma, unspecified, unspecified site; E22.2 Syndrome of inappropriate secretion of antidiuretic hormone; J15.9 Unspecified bacterial pneumonia; R44.3 Hallucinations, unspecified; N17.9 Acute kidney failure, unspecified; Z79.02 Long term (current) use of antithrombotics/antiplatelets; Z86.16 Personal history of COVID-19; Z92.3 Personal history of irradiation; I71.2 Thoracic aortic aneurysm, without rupture; I12.9 Hypertensive chronic kidney disease with stage 1 through stage 4 chronic kidney disease, or unspecified chronic kidney disease; J12.82 Pneumonia due to coronavirus disease 2019; Z66 Do not resuscitate; G93.41 Metabolic encephalopathy; C83.30 Diffuse large B-cell lymphoma, unspecified site; F03.90 Unspecified dementia, unspecified severity, without behavioral disturbance, psychotic disturbance, mood disturbance, and anxiety; Z28.310 Unvaccinated for COVID-19; C83.00 Small cell B-cell lymphoma, unspecified site; N18.30 Chronic kidney disease, stage 3 unspecified

== ENCOUNTER 2023-03-01 12:37 | Inpatient (IN) ==
[2023-03-01 13:13] LABS: Basophils # (auto) 0.02 K/uL (0.00-0.20); Basophils % (auto) 0.1 %; Hematocrit (blood only) 29.9 % (42.0-52.0); Hemoglobin 10.5 g/dl (14.0-18.0); Immature Granulocytes # (auto) 0.06 K/uL (0.01-0.20); Immature Granulocytes % (auto) 0.4 %; Lymphocytes # (auto) 0.72 K/uL (1.20-3.40); Lymphocytes % (auto) 5.3 %; Mean Corpuscular Hemoglobin 30.6 pg (25.0-34.0); Mean Corpuscular Hgb Conc 35.1 g/dL (32.0-36.0); Mean Corpuscular Volume 87.2 fL (80.0-100.0); Mean Platelet Volume 10.4 fL (9.4-12.4); Monocytes # (auto) 1.53 K/uL (0.11-0.59); Monocytes % (auto) 11.2 %; Neutrophils # (auto) 11.31 K/uL (1.40-6.50); Platelet Count 213 K/uL (130-400); RDW Coefficient of Variation 13.6 % (11.5-14.5); RDW Standard Deviation 43.8 fL (36.4-46.3); Red Blood Count 3.43 M/uL (4.70-6.10); White Blood Count 13.64 K/ul (4.8-10.8)
[2023-03-01 13:30] LABS: Alanine Aminotransferase 13 U/L (7-52); Albumin Globulin Ratio 1.3 (0.9-2); Alkaline Phosphatase 67 U/L (34-104); Anion Gap 7 (3-11); Aspartate Aminotransferase 18 U/L (13-39); BUN Creatinine Ratio 17.2 (10-20); Bilirubin,Total 1.3 mg/dl (0.2-1.0); Blood Urea Nitrogen 23 mg/dl (6-23); Calcium 9.4 mg/dl (8.6-10.3); Carbon Dioxide 25 mmol/L (21-32); Chloride 102 mmol/L (98-107); Est GFR (African American) 55.2 ml/min; Est GFR (Non-African American) 47.6 ml/min; Glucose 141 mg/dl (70-99(Fasting)); Potassium 4.3 mmol/L (3.5-5.1); Sodium 134 mmol/L (136-145)
[2023-03-01 13:34] LABS: Troponin I High Sensitivity 7.9 pg/ml (0-20)
[2023-03-01 13:41] LABS: INR 1.1 (0.9-1.1); Partial Thromboplastin Time 29.3 Seconds (21.0-31.0); Prothrombin Time 11.6 Seconds (9.0-12.0)
--- NOTE | 2023-03-01 13:41 | CT Scan Report ---
HEAD CT NONCONTRAST CT DOSE: 663.26 mGy.cm HISTORY: Confusion. Fall. TECHNIQUE: Multiaxial CT images of the head were performed without the use of intravenous contrast. A utomated exposure control was utilized for this study. A dose lowering technique was utilized adheri ng to the principles of ALARA. Comparison: Head CT 12/30/2021. Findings: Partial opacification of the right ethmoid air cells. The mastoid air cells are clear. Prio r bilateral lens replacement. The calvarium and skull base are intact. There is no mass, hematoma, mi dline shift, acute infarct. White matter hypodensity is nonspecific but suggestive of microvascular i schemic change. The ventricles and sulci demonstrate mild age-related involutional changes. 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 Bilateral basal ganglia calcifications again noted. Impression: No significant change compared to the prior study. No acute intracranial abnormality. ACT 112: Negative or not required by law. Electronically signed by: Gildardo Alves M.D. 03/01/2023 1:39 PM
[2023-03-01] MEDS ORDERED: SODIUM CHLORIDE 0.9% 1,000 ML IV ONE (14:37)
[2023-03-01] MEDS ORDERED: cefTRIAXone SODIUM 2,000 MG/50 ML BAG IV STA (14:37)
[2023-03-01] MEDS ORDERED: AZITHROMYCIN 500 MG in DEXTROSE 5% 250 ML IV ONE (14:37)
--- NOTE | 2023-03-01 14:40 | Emergency Department Note ---
Impression & Plan Pneumonia, Pulmonary mass ED Provider Note NAME: CRYSTAL BRUNNER AGE: 87 SEX: M : 1935 ARRIVES VIA: Walk-In INFORMANT: Patient ED PROVIDER(S): Sang Zaman DO CHIEF COMPLAINT: weakness HPI: Patient is an 87-year-old male with a past medical history of renal failure, weakness, pneumonia, GERD, CAD and low-grade B-cell lymphoma who presents to the ER. History is obtained from daughter due to the patient's dementia. Daughter notes patient has been much more tired over the past 2 weeks. Over the past 3 days he has been getting gradually weaker. Today he is unable to get up at all. He has had some cough and congestion. No fevers. She admits that he is having shortness of breath with any movement. ADDITIONAL HISTORY OBTAINED: Per HPI Chronic Medical/Social Conditions Affecting Care: Per HPI PAST MEDICAL HISTORY:See Below PAST SURGICAL HISTORY:See Below FAMILY HISTORY:See Below SOCIAL HISTORY:See Below HOME MEDICATIONS:See Below ALLERGIES:See Below VITALS:See Below PHYSICAL EXAMINATION: GENERAL: Sitting up in bed, alert, chronically ill-appearing, disheveled EYE EXAM: normal conjunctiva. PERRL and EOM's grossly intact. OROPHARYNX: no exudate, no erythema, lips, buccal mucosa, and tongue normal and mucous membranes are moist NECK: supple, no nuchal rigidity, no adenopathy, non-tender LUNGS: Clear to auscultation. Normal chest wall mechanics HEART: no murmurs, S1 normal and S2 normal ABDOMEN: abdomen soft, non-tender, normo-active bowel sounds, no masses, no rebound or guarding. BACK: Back is symmetrical on inspection and there is no deformity, no midline tenderness, no CVA tenderness. SKIN: no rashes and no bruising UPPER EXTREMITIES: upper extremities are grossly normal. LOWER EXTREMITIES: No pitting edema. NEURO EXAM: Awake alert oriented to person but not place or year, cranial nerves II-XII grossly intact, normal speech, no gross weakness of arms, no gross weakness of legs. MEDICAL DECISION MAKING: Patient is an 87-year-old male who presents the ER for above-stated complaint with a past medical history of B-cell lymphoma, status post radiation, history of CAD, status post stent; chronic kidney disease, history of dementia, history of CVA without any residual weakness; history of hypertension; hyperlipidemia; history of COVID pneumonia in August 2020; history of thoracic aortic aneurysm; history of left eye blindness; mild aortic regurgitation. IV was established blood was obtained. Labs show leukocytosis of 13,000. Mild anemia 10.5. Chest x-ray suggested right lower lobe infiltrate with a mass in the right middle lobe. BMP with LFTs bilirubin was unremarkable. Troponin was negative. Pro- Mp negative. Viral panel was negative. Patient was given IV Rocephin and azithromycin and fluids. Updated at bedside. Discussed with the hospitalist and Pt was admitted for further workup. External Records Reviewed: Admitted at the end of December for hyponatremia Consults/Care Managements Discussions: Per [facility] Triage Nursing notes reviewed. Limited review of prior medical records performed Vital Signs: reviewed and remarkable for no significant abnormalities Differential diagnosis: Infection, dehydration, metabolic abnormality, hypo/hyperglycemia, electrolyte disturbance, anemia, hypoxia, cardiac sources, intracerebral event, toxicologic, neurologic, as well as other pathologies. ER treatment provided: See below Diagnostics interpreted by me include EKG and cardiac monitoring as listed below: -Cardiac Monitoring: An order was placed for continuous cardiac monitoring. The monitor shows a rate of 80 with sinus rhythm. -ECG: Sinus rhythm rate of 76 Left axis First-degree AV block QTc 425 -Laboratory studies:Interpreted by me as stated above in MDM and shown below. Imaging studies: Xrays: As interpreted by me: Portable AP upright 1 view of the chest shows right lower lobe infiltrate CTs show: CT of the head was negative Procedures:none Critical Care: None Past Med/Surg History Medical History (Updated 03/01/23 @ 19:53 by Sang Zaman DO) Chronic hyponatremia History of COVID-19 Cerebrovascular disease TIA RUE weakness 02/23/20 GERD (gastroesophageal reflux disease) Do not resuscitate status Per pt's advance directives. 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 Brunner Status post coronary artery stent placement Family History Mother Heart disease Father Myocardial infarction Sister Cancer ? GI Other Diabetes Hypertension Social History Smoking Status: Never smoker Second Hand Exposure: No; Do You Dip or Chew Tobacco: No; Hx Alcohol Use: No Hx Substance Use: No Preferred Language: Macedonian Communication Ability: Effective Communication Ability Comment: blind left eye, 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 Customer Relations Assistant Required: No Beliefs That Will Affect Care: None marital status: / Current Living Situation: Alone Current Living Situation Comment: Help from daughter current occupational status: retired How many Children do You have: 2 Feels Safe at Home: Yes Assistive Devices: Cane and Walker Allergies Allergies Allergy/AdvReac Type Severity Reaction Status Date / Time No Known Allergies Allergy Unknown Verified 03/01/23 15:00 Home Meds Home Medications Medication Instructions Recorded Confirmed nitroglycerin 0.4 mg sublingual 0.4 mg sublingual DIRECTED PRN 06/09/18 03/01/23 tablet (Nitrostat) Chest Pain famotidine 20 mg tablet 20 mg PO DAILY PRN Heartburn 03/01/23 03/01/23 sodium chloride 1,000 mg soluble 1,000 mg PO DAILY 03/01/23 03/01/23 tablet Previous Rx's Medication Instructions Recorded atorvastatin 80 mg tablet 80 mg PO QAM #30 tabs 02/07/21 clopidogrel 75 mg tablet 75 mg PO DAILY #30 tabs 02/07/21 metoprolol succinate 25 mg 12.5 mg (1/2 x 25 mg) PO DAILY #30 02/07/21 tablet,extended release 24 hr tabs (Toprol XL) multivitamin 1 tab PO DAILY #30 tabs 02/07/21 pantoprazole 40 mg tablet,delayed 40 mg PO DAILY #30 tabs 02/07/21 release Results & Data (ED) Vital Signs Vital Signs - 24 hr 03/01/23 12:46 Temperature 36.9 C Temperature Source Temporal Artery Scan Pulse Rate 73 Respiratory Rate 18 Respiratory Effort / Characteristics Non-Labored Spontaneous Respiratory Depth Normal Blood Pressure 108/64 Blood Pressure Mean 78 Blood Pressure Position Sitting Pulse Oximetry 95 Oxygen Delivery Method Room Air Sepsis Recent Fever Within 48 Hours No Sepsis New/Unexplained Change in Mental Status N/A Sepsis Action Taken by Nursing No Action Required Laboratory Data 03/01/23 12:57 03/01/23 12:57 Lab Results 03/01/23 03/01/23 Range/Units 12:57 12:59 WBC 13.64 H (4.8-10.8) K/ul RBC 3.43 L (4.70-6.10) M/uL Hgb 10.5 L (14.0-18.0) g/dl Hct 29.9 L (42.0-52.0) % MCV 87.2 (80.0-100.0) fL MCH 30.6 (25.0-34.0) pg MCHC 35.1 (32.0-36.0) g/dL RDW Std Deviation 43.8 (36.4-46.3) fL RDW Coeff of Roderick 13.6 (11.5-14.5) % Plt Count 213 (130-400) K/uL MPV 10.4 (9.4-12.4) fL Immature Gran % (Auto) 0.4 % Neut % (Auto) 83.0 % Lymph % (Auto) 5.3 % Towns % (Auto) 11.2 % Eos % (Auto) 0.0 % Baso % (Auto) 0.1 % Neut # (Auto) 11.31 H (1.40-6.50) K/uL Lymph # (Auto) 0.72 L (1.20-3.40) K/uL Towns # (Auto) 1.53 H (0.11-0.59) K/uL Eos # (Auto) 0.00 (0.00-0.50) K/uL Baso # (Auto) 0.02 (0.00-0.20) K/uL Immature Gran # (Auto) 0.06 (0.01-0.20) K/uL PT 11.6 (9.0-12.0) Seconds INR 1.1 (0.9-1.1) APTT 29.3 (21.0-31.0) Seconds PTT Ratio 1.0 Sodium 134 L (136-145) mmol/L Potassium 4.3 (3.5-5.1) mmol/L Chloride 102 (98-107) mmol/L Carbon Dioxide 25 (21-32) mmol/L Anion Gap 7 (3-11) BUN 23 (6-23) mg/dl Creatinine 1.34 (0.6-1.4) mg/dl Est Cr Clr Drug Dosing Not Reportable Est GFR ( Amer) 55.2 ml/min Est GFR (Non-Af Amer) 47.6 ml/min BUN/Creatinine Ratio 17.2 (10-20) Glucose 141 H (70-99(Fasting)) mg/dl Calcium 9.4 (8.6-10.3) mg/dl Total Bilirubin 1.3 H (0.2-1.0) mg/dl AST 18 (13-39) U/L ALT 13 (7-52) U/L Alkaline Phosphatase 67 (34-104) U/L Troponin I High Sens 7.9 (0-20) pg/ml Total Protein 7.0 (6.0-8.3) gm/dl Albumin 4.0 (3.4-5.0) gm/dl Globulin 3.0 (2.5-4.0) gm/dl Albumin/Globulin Ratio 1.3 (0.9-2) Procalcitonin < 0.05 (0-0.5) ng/ml Administered Medications Discontinued Medications Ceftriaxone Sodium (Rocephin) 2,000 mg in 50 mls @ 100 mls/hr IV NOW STA Stop: 03/01/23 15:06 Last Infusion: 03/01/23 16:18 Dose: Infused Documented By: Admin: 03/01/23 15:53 Dose: 100 mls/hr Documented By: JACOB Azithromycin 500 mg/ Dextrose 255 mls @ 125 mls/hr IV ONE ONE Stop: 03/01/23 16:39 Last Infusion: 03/01/23 18:30 Dose: Infused Documented By: Admin: 03/01/23 16:18 Dose: 125 mls/hr Documented By: JACOB Sodium Chloride (Nss) 1,000 mls @ 999 mls/hr IV .Q1H1M ONE Stop: 03/01/23 15:37 Last Infusion: 03/01/23 18:14 Dose: Infused Documented By: Admin: 03/01/23 15:50 Dose: 999 mls/hr Documented By: JACOB Ampicillin Sodium/Sulbactam Sodium 3,000 mg/ Sodium Chloride 100 mls @ 200 mls/hr IV NOW STA Stop: 03/01/23 18:16 Last Infusion: 03/01/23 19:05 Dose: Infused Documented By: Admin: 03/01/23 18:30 Dose: 200 mls/hr Documented By: JACOB Miscellaneous (Patient's Height &/Or Weight Needed) 1 each N/A Q2H BHARATH Stop: 03/31/23 17:59 Last Admin: 03/01/23 18:34 Dose: 1 each Documented By: JACOB Imaging Data Radiologist's Impression: Chest X-Ray 03/01/23 12:52 XR chest 1V not portable HISTORY: Chest pain, nonspecific COMPARISON: Chest 12/30/2021. FINDINGS: No pneumothorax. There are low lung volumes. The cardiac silhouette remains mildly enlarged. Interstitial thickening at the lung bases persists. This is likely chronic. No evidence for pulmonary edema. A 2.9 cm right perihilar nodular density persists. A right lower lobe/infrahilar lobular density has progressed. IMPRESSION: 1. Interval development of right lower lobe/infrahilar lobular density. This could represent atelectasis, pneumonia, or pulmonary lesion. 2. No change in the 2.9 cm right perihilar lobular density. Follow-up nonemergent chest CT is recommended to assess for a pulmonary lesion. ACT 112: Negative or not required by law. Electronically signed by: Gildardo Alves M.D. 03/01/2023 3:[address] 03/01/23 12:[address] DOSE: 663.26 mGy.cm HISTORY: Confusion. Fall. TECHNIQUE: Multiaxial CT images of the head were performed without the use of intravenous contrast. Automated exposure control was utilized for this study. A dose lowering technique was utilized adhering to the principles of ALARA. Comparison: Head CT 12/30/2021. Findings: Partial opacification of the right ethmoid air cells. The mastoid air cells are clear. Prior bilateral lens replacement. The calvarium and skull base are intact. There is no mass, hematoma, midline shift, acute infarct. White matter hypodensity is nonspecific but suggestive of microvascular ischemic change. The ventricles and sulci demonstrate mild age-related involutional changes. 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 Bilateral basal ganglia calcifications again noted. Impression: No significant change compared to the prior study. No acute intracranial abnormality. ACT 112: Negative or not required by law. Electronically signed by: Gildardo Alevs M.D. 03/01/2023 1:39 PM Discharge Plan Visit Data Chief Complaint: Fall Stated Complaint: FALL, ?DEHYDRATED ED Provider: Sang Zaman Discharge Problem: Pneumonia, Pulmonary mass Patient Disposition: Being Evaluated by Hospitalist Discharge Instructions Interventions: ED Discharge Assessment Last Done: 03/01/23 17:42 Discharge Problem: Pneumonia Qualifiers: Pneumonia type: due to unspecified organism Laterality: unspecified laterality Lung location: unspecified part of lung Qualified Code(s): J18.9 - Pneumonia, unspecified organism
--- NOTE | 2023-03-01 15:28 | History & Physical Report ---
Date of Service March 01, 2023 Assessment & Plan (1) Pneumonia: Plan: Admit to [facility] Patient presenting from home with reports of generalized weakness, falls, cough. In the ED, CXR shows interval development of right lower lobe/infrahilar lobular density. This could represent atelectasis, pneumonia, or pulmonary lesion. WBC 13 K, saturating well on room air Bio fire negative Procalcitonin <0.05 S/p IV ceftriaxone and IV azithromycin in the ED. Given concerns for aspiration on CT chest, will continue with IV Unasyn and IV azithromycin. CT chest obtained to further evaluate right lower lobe density 1. Interval increase in size in the right perihilar/upper lobe lobular consolidation with mild mass effect along the adjacent right upper lobe bronchi. This is highly suspicious for a primary bronchogenic malignancy. Follow-up pulmonary consultation with bronchoscopy recommended for tissue diagnosis. 2. Interval progression of the mediastinal and right hilar lymphadenopathy which is highly suspicious for metastatic disease. 3. Patchy airspace opacities within the left lower lobe likely representing a pneumonia. This could be due to prior aspiration. Speech consult due to aspiration concerns Pulmonary consult Follow blood cultures (2) Weakness: Plan: Secondary to acute illness PT/OT evals (3) Coronary artery disease: Plan: Appears stable, no reports of chest pain Continue Plavix, statin, beta-adonis (4) Cerebrovascular disease: Plan: Continue Plavix and statin (5) Chronic hyponatremia: Plan: Na+ 134 Continue salt tabs (6) Low grade B-cell lymphoma: Plan: Remote history of radiation treatment Follows with Dr. Mayer Currently under observation, patient declining additional treatment (7) Thoracic aortic aneurysm: Plan: CT chest 12/2021 - ascending thoracic aorta which measures up to 4.5 cm (8) GERD (gastroesophageal reflux disease): Plan: Continue PPI DVT PROPHYLAXIS SQ heparin Patient seen in collaboration with Dr. Yin. I spent a total of 75 minutes coordinating, documenting, and providing care for this patient excluding time spent in the performance of separately billed services. This included personally reviewing all current laboratories and imaging studies, medication reconciliation, outpatient chart review, and discussion with specialists. History of Present Illness Chief Complaint: Weakness, Fall, Cough Primary Care Provider: Joaquin Ramirez DO 87 year old male with PMH, CAD, CVA, dementia, hx of B-cell lymphoma s/p radiation, thoracic aortic aneurysm, CKD stage III, chronic hyponatremia, and other problems listed below who presents to the ED for evaluation of weakness, falls, and cough. Due to underlying dementia, history obtained from daughter and review of outpatient PCP and cardiology records. Over the past 2 weeks, patient has had worsening weakness. Daughter reports 2 falls. She reports that this morning she heard him yell for help from the bathroom. She found him on the floor leaning against the wall. No suspected head trauma of loss of consciousness. Patient has had a non productive cough. No fever or chills. Appetite has been fair, no vomiting or diarrhea. In the ED, patient is hemodynamically stable. Labs show WBC 13K. CXR shows interval development of right lower lobe/infrahilar lobular density. This could represent atelectasis, pneumonia, or pulmonary lesion. Patient was given IVF, IV azithromycin, and IV ceftriaxone. Allergies Allergy/AdvReac Type Severity Reaction Status Date / Time No Known Allergies Allergy Unknown Verified 03/01/23 15:00 Home Medications Medication Instructions Recorded Confirmed Type nitroglycerin 0.4 mg sublingual 0.4 mg sublingual DIRECTED PRN 06/09/18 03/01/23 History tablet (Nitrostat) Chest Pain atorvastatin 80 mg tablet 80 mg PO QAM #30 tabs 02/07/21 03/01/23 Rx clopidogrel 75 mg tablet 75 mg PO DAILY #30 tabs 02/07/21 03/01/23 Rx metoprolol succinate 25 mg 12.5 mg (1/2 x 25 mg) PO DAILY #30 02/07/21 03/01/23 Rx tablet,extended release 24 hr tabs (Toprol XL) multivitamin 1 tab PO DAILY #30 tabs 02/07/21 03/01/23 Rx pantoprazole 40 mg tablet,delayed 40 mg PO DAILY #30 tabs 02/07/21 03/01/23 Rx release famotidine 20 mg tablet 20 mg PO DAILY PRN Heartburn 03/01/23 03/01/23 History sodium chloride 1,000 mg soluble 1,000 mg PO DAILY 03/01/23 03/01/23 History tablet Past Med/Surg History Medical History (Updated 03/01/23 @ 15:52 by RODOLFO Cruz) Chronic hyponatremia History of COVID-19 Cerebrovascular disease TIA RUE weakness 02/23/20 GERD (gastroesophageal reflux disease) Do not resuscitate status Per pt's advance directives. 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 Brunner Status post coronary artery stent placement Family History Mother Heart disease Father Myocardial infarction Sister Cancer ? 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 Yin's addendum for physical exam Results & Data Results & Data Vital Signs (Past 12 Hours) Vital Signs Temp Pulse Resp BP Pulse Ox O2 Del Method 03/01/23 12:46 36.9 C 73 18 108/64 95 Room Air Laboratory Results Short CBC 03/01/23 Range/Units 12:57 WBC 13.64 H (4.8-10.8) K/ul Hgb 10.5 L (14.0-18.0) g/dl Hct 29.9 L (42.0-52.0) % Plt Count 213 (130-400) K/uL BMP 03/01/23 12:57 Sodium 134 L Potassium 4.3 Chloride 102 Carbon Dioxide 25 BUN 23 Creatinine 1.34 Glucose 141 H Calcium 9.4 Liver Function 03/01/23 Range/Units 12:57 Total Bilirubin 1.3 H (0.2-1.0) mg/dl AST 18 (13-39) U/L ALT 13 (7-52) U/L Alkaline Phosphatase 67 (34-104) U/L Albumin 4.0 (3.4-5.0) gm/dl Diagnostic Findings Head CT 03/01/23 12:[address] DOSE: 663.26 mGy.cm HISTORY: Confusion. Fall. TECHNIQUE: Multiaxial CT images of the head were performed without the use of intravenous contrast. Automated exposure control was utilized for this study. A dose lowering technique was utilized adhering to the principles of ALARA. Comparison: Head CT 12/30/2021. Findings: Partial opacification of the right ethmoid air cells. The mastoid air cells are clear. Prior bilateral lens replacement. The calvarium and skull base are intact. There is no mass, hematoma, midline shift, acute infarct. White matter hypodensity is nonspecific but suggestive of microvascular ischemic change. The ventricles and sulci demonstrate mild age-related involutional changes. 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 Bilateral basal ganglia calcifications again noted. Impression: No significant change compared to the prior study. No acute intracranial abnormality. ACT 112: Negative or not required by law. Electronically signed by: Gildardo Alves M.D. 03/01/2023 1:39 PM Code Status & VTE Plan VTE Prophylaxis Plan VTE Prophylaxis will be ordered: Yes Supervising Physician Co-Signing Physician Notes Patient is an 89-year-old male with history of B-cell lymphoma S/P radiation, thoracic aortic aneurysm, CVA with residual right-sided weakness, coronary artery disease and other medical problems presents with history of generalized weakness, falls and non expectorant cough which has been gradually worsening especially since past 2 weeks. Also reports having increased sleepiness mostly and dyspnea on minimal exertion. No known history of fever, chills, chest pain, head trauma, syncopal episode. I personally reviewed imaging studies, blood work, EKG. Physical Exam: Vitals signs as noted above General Appearance:Moderately built and nourished, no apparent distress, chronically appearing, elderly Head: normocephalic, Atraumatic Eyes: normal inspection, + left eye blindness Neck: supple, Trachea midline Respiratory/Chest: Decreased breath sounds at bases, CTA, No accessory muscle use Cardiovascular: S1, S2, + murmur Abdomen/GI:Soft, Non tender, Bowel sounds present Extremities/Musculoskeletal:normal inspection, no edema Neurologic/Psych:AAO, grossly no focal neurological deficits, significant hearing impairment Skin: normal color, warm Community-acquired pneumonia Suspected bronchogenic carcinoma/metastatic disease Normal procalcitonin Negative BioFire H/O B-cell lymphoma Blood cultures obtained UA pending Empirically started on Unasyn Pulmonology consulted Aspiration precautions Multiple falls Generalized weakness Ambulatory dysfunction Uses walker at baseline Fall precautions PT OT Check TSH I personally reviewed the record. Patient is interviewed and examined at bedside. Patient's care is coordinated with Teresita Guerrero QUILTING MACHINE HELPER. Please refer to the documentation above for details of patient's presentation and for discussion of other issues. (1) Pneumonia Laterality: bilateral Lung location: unspecified part of lung Pneumonia type: due to unspecified organism Qualified Code(s): J18.9 - Pneumonia, unspecified organism
--- NOTE | 2023-03-01 15:59 | XRay Report ---
XR chest 1V not portable HISTORY: Chest pain, nonspecific COMPARISON: Chest 12/30/2021. FINDINGS: No pneumothorax. There are low lung volumes. The cardiac silhouette remains mildly enlarged . Interstitial thickening at the lung bases persists. This is likely chronic. No evidence for pulmona ry edema. A 2.9 cm right perihilar nodular density persists. A right lower lobe/infrahilar lobular de nsity has progressed. IMPRESSION: 1. Interval development of right lower lobe/infrahilar lobular density. This could represent atelecta sis, pneumonia, or pulmonary lesion. 2. No change in the 2.9 cm right perihilar lobular density. Follow-up nonemergent chest CT is recomme nded to assess for a pulmonary lesion. ACT 112: Negative or not required by law. Electronically signed by: Gildardo Alves M.D. 03/01/2023 3:57 PM
--- OUTSIDE RECORDS SUMMARY | 2023-03-01 16:21 | External Medical Summary | Summary of Care ---
Author Name Unknown Organization [facility] Address [address] [place] [address] Phone [phone] Care Team Providers Care Senior Teradata Developer Name Role Phone Joaquin Ramirez DO Primary Care Provider + [phone] Reason for Visit * Reason Comments Follow Up Encounter Details Date Type Department Care Team Description 02/17/2022 Telemedicine Family Practice [facility] [address] [facility] [address] [place] [address] Joaquin Ramirez DO [address] [place] [address] Mass of upper lobe of right lung*; Chronic obstructive pulmonary disease, unspecified COPD type (HCC); Coronary artery disease involving seminole coronary artery of seminole heart without angina pectoris; Benign hypertension with stage 3a chronic kidney disease (HCC); Gastroesophageal reflux disease without esophagitis; Prediabetes; History of 2019 novel coronavirus disease (COVID-19) Allergies No known active allergiesdocumented as of this encounter (statuses as of 01/18/2023) Medications Medication Sig Dispensed Refills Start Date End Date Status Multiple Vitamins-Minerals (MULTIVITAMIN ADULT) TABS Take by mouth. 0 Active Nitroglycerin 0.4 MG Sublingual Tablet Sublingual (Nitrostat)Indica tions:Coronary artery disease involving seminole coronary artery of seminole heart without angina pectoris DISSOLVE ONE TABLET UNDER THE TONGUE EVERY 5 MINUTES NEEDED FOR CHEST PAIN. DO NOT EXCEED A TOTAL OF 3 DOSES IN 15 MINUTES 25 Tablet 3 09/23/2021 Active Sodium Chloride 1 GM Oral Tablet Take 1 Tablet by mouth in the morning and 1 Tablet before bedtime. 0 01/05/2022 Active Metoprolol Succinate ER 25 MG Oral Tablet Extended Release 24 Hour (toPROL XL)Indications:CA D (coronary artery disease),HTN, goal below 140/90 Take 1/2 (one-half) tablet by mouth once daily 45 Tablet 3 04/15/2021 07/28/2022 Discontinued Atorvastatin Calcium 80 MG Oral Tablet (Lipitor)Indicati ons:Dyslipidemia, goal LDL below 100 Take 1 tablet by mouth once daily 90 Tablet 1 07/29/2021 03/21/2022 Discontinued Clopidogrel Bisulfate 75 MG Oral Tablet (pLAVix) Take 1 tablet by mouth once daily 30 Tablet 5 08/12/2021 05/06/2022 Discontinued Pantoprazole Sodium 40 MG Oral Tablet Delayed Release (Protonix)Indicat ions:Gastroesopha geal reflux disease without esophagitis Take 1 tablet by mouth once daily 90 Tablet 0 09/22/2021 04/20/2022 Discontinued Famotidine 20 MG Oral Tablet (Pepcid)Indicatio ns:Gastroesophage al reflux disease without esophagitis Take 1 Tablet (20 mg) by mouth 2 times a day as needed for Heartburn. 60 Tablet 2 02/17/2022 07/28/2022 Discontinued documented as of this encounter (statuses as of 01/18/2023) Active Problems Problem Noted Date Lung consolidation 01/12/2022 Vascular dementia without behavioral dis turbance 01/11/2022 Aortic ectasia 01/11/2022 Mass of upper lobe of right lung 022 Pneumonia of right upper lobe due to inf ectious organism 01/11/2022 Hyponatremia 01/11/2022 COVID-19 virus infection 01/11/2022 Prediabetes 02/15/2021 Overview: Per Prediabetes protocol Chronic kidney disease, stage 3a 021 Overview: Per CKD protocol Dementia without behavioral disturbance 09/05/2020 Benign hypertension with stage 3a chroni c kidney disease 08/18/2020 Overview: Per CKD protocol Cerebrovascular disease, arterioscleroti c, post-stroke 03/27/2019 Carotid atherosclerosis, bilateral 03/27 Elevated TSH 03/27/2019 Memory loss 03/27/2019 Cholelithiasis 06/18/2018 CAD (coronary artery disease) 07/10/2014 Encounter for antineoplastic chemotherap y 10/14/2013 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 ADVANCE DIRECTIVE INFORMATION 11/30/2004 Overview: No, Advance Directive brochure given to patient. 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 documented as of this encounter (statuses as of 01/18/2023) Immunizations Name Administration Dates Next Due Diptheria/Tetanus (Adult) 09/08/2001 Pneumococcal Conjugate Vacci ne, 20-valent ([id number]) 01/11/2022 Seasonal Influenza, QUAD, wi th Preserv, 6 mons & Above, 0.5 mL, IM 01/14/2020 Seasonal Influenza, Quadriva lent Hd (Fluzone Hd) 01/11/2022,02/26/2021 Seasonal Influenza, Split, I IV3, With Preserve, Inj 12/31/2012,12/19/2011,01/22/2011,2009,03/26/2009,04/24/2007 TDAP (age 10 and older)(Boostrix) 06/28/2012 documented as of this encounter Social History Tobacco Use Types Packs/Day Years Used Date Smoking Tobacco: Never Smokeless Tobacco: Never Alcohol Use Standard Drinks/Week Comments No 0 (1 standard drink = 0.6 oz pur e alcohol) Food Insecurity Answer Date Recorded Within the past 12 months, y ou worried that your food would run out before you got money to buy more. Never true 01/11/2022 Within the past 12 months, t he food you bought just didn't last and you didn't have money to get more. Never true 01/11/2022 Sex Assigned at Date Recorded Not on file Job Start Date Occupation Industry Not on file Not on file Not on file documented as of this encounter Progress Notes * Joaquin Ramirez, - 02/17/2022 1:39 PM EST Images from the original note were not included. History of Present Illness Fawad Brunner is a 86 year old male that presents for Follow Up Patient is an 86-year-old male with history of B-cell lymphoma, COPD, coronary disease, hypertension, GERD, prediabetes, COVID-19 pneumonia August 2020. Patient daughter in attendance as historian. CT chest on 02/11/2022 shows right perihilar mass, chronic changes of COPD and emphysema. Patient following with pulmonology. Patient denies fever chills or sweats. Patient denies nasal congestion sore thro at or earache. Patient denies cough or sputum. Patient denies chest pain shortness breath palpitations or edema. Patient denies abdominal pain nausea vomiting diarrhea constipation. Patient denies urinary frequency dysuria urgency or hematuria. Patient denies neck or back pain, joint pain or swelling. Patient denies headache dizziness weakness or numbness. Patient denies skin rash or lesions. Review systems otherwise negative Physical Exam There were no vitals filed for this visit. General: alert, healthy and no distress Head: Normocephalic, No masses, lesions, tenderness or abnormalities Eye Exam: PERRLA, extraocular movements intact, conjunctiva are pink and non- injected, sclera clear Skin: skin color, texture, turgor are normal, no rashes or significant lesions Physical exam limited due to telemedicine visit I have reviewed the following results: None Assessment and Plan Mass of upper lobe of right lung Follow with pulmonology Follow with Hematology-Oncology Follow-up CT chest approximate 1 month Chronic obstructive pulmonary disease, unspecified COPD type (HCC) Stable Coronary artery disease involving seminole coronary artery of seminole heart without angina pectoris Continue present medication Atorvastatin 80 mg 1 tab once daily Plavix 75 mg 1 tab once daily Metoprolol succinate ER 25 mg 1/2 tab once daily Benign hypertension with stage 3a chronic kidney disease (HCC) Continue present medication Metoprolol succinate ER 25 mg 1/2 tab once daily - ALBUMIN / CREATININE RATIO, URINE; Future - PHOSPHORUS; Future Gastroesophageal reflux disease without esophagitis [place] high-fiber diet - Famotidine 20 MG Oral Tablet (Pepcid); Take 1 Tablet (20 mg) by mouth 2 times a day as needed forHeartburn. Prediabetes HEMOGLOBIN A1C; Future Reduced caloric intake diabetic diet and exercise History of 2019 novel coronavirus disease (COVID-19) Wrap-Up Time: I spent a total of 30-39 minutes (exact time 30 mins) on the date of service in preparation, delivery, and documentation of the care provided to Fawad Brunner excluding any time spent in the performance of separately billed services. documented in this encounter Plan of Treatment Upcoming Encounters Date Type Specialty Care Team Description 04/20/2023 Office Visit Cardiology Magdiel Diana, Yves Kahlil DO 05/31/2023 Office Visit Hematology Oncology Marcial Mayer MD [address] [place] [address], [place] [address] Scheduled Orders Name Type Priority Associated Diagnoses Orde r Schedule ALBUMIN / CREATININE RATIO, URINE Lab Routine Benign hypertension with stage 3a chronic kidney disease (HCC) Expected: 02/17/2022, Expires: 02/17/2023 Health Maintenance Due Date Last Done Comments COVID-19 Vaccine (#1) 1941 Albumin/Creatinine Ratio 1954 Zoster Vaccines (1 of 2) 12/24/1954 DTaP,Tdap,and Td Vaccines (2 - Td or Tdap) 06/28/2022 06/28/2012, 09/08/2001 Influenza Vaccine (FLU shot) (#1) 2022 01/11/2022, 02/26/2021, 01/14/2020, Additional history exists Depression Screening 01/11/2023 01/11/2022 CKD HGB USE SMARTSET 74231 03/29/202303/29, 03/29/2022, 11/04/2021, Additional history exists CKD PHOS USE SMARTSET 72291 03/29/202303/11, 02/17/2021, 10/09/2019, Additional history exists HbA1c 03/29/2023 03/29/2022, 01/08, 04/30/2018 Pneumococcal Vaccine: 65+ Years Completed 01/11/2022, 12/17/2004 GARDASIL-HPV IMMUNIZATION SERIES Aged Out No longer eligible based on patient's age to complete this topic Hepatitis B Aged Out No longer eligi ble based on patient's age to complete this topic MENINGOCOCCAL (MENACTRA/MENVEO) Aged Out No longer eligible based on patient's age to complete this topic documented as of this encounter Medical Devices Not on filedocumented as of this encounter Results * PHOSPHORUS (03/29/2022 12:01 PM EST) Pathologist [facility] Phosphorus 3.5 2.5 - 4.8 mg/dL 03/29/2022 7:58 PM EST [facility] Blood Venous blood specimen / Unknown Venipuncture / Unknown 03/29/2022 12:01 PM EST 03/29/2022 12:01 PM EST Joaquin Ramirez DO LAB BLOOD ORDERABLES [facility] [address] [place] [address] * HEMOGLOBIN A1C (03/29/2022 12:01 PM EST) Hemoglobin A1C 4.9 4.0 - 5.6 % 03/29/2022 4:50 PM EST [facility] Comment:The use of HbA1c to monitor glycemic status is based on normal hemoglobin and HbA composition. This test should not be used in patients with abnormal hemoglobin that affects the half life of the red blood cell or the in vivo glycation rates. Estimated Average Glucose 94 <126 mg/dL 03/29/2022 4:50 PM EST [facility] Blood Venous blood specimen / Unknown Venipuncture / Unknown 03/29/2022 12:01 PM EST 03/29/2022 12:01 PM EST Joaquin Ramirez DO LAB BLOOD ORDERABLES [facility] [address] [facility] [place] [address] documented in this encounter Visit Diagnoses Diagnosis Mass of upper lobe of right lung- Primary Chronic obstructive pulmonary disease, unspecified COPD type (HCC) Coronary artery disease involving seminole coronary artery of seminole heart without angina pectoris Benign hypertension with stage 3a chronic kidney disease (HCC) Gastroesophageal reflux disease without esophagitis Esophageal reflux Prediabetes Other abnormal glucose History of 2019 novel coronavirus disease (COVID-19) documented in this encounter Care Teams Senior Teradata Developer Relationship Specialty Start Date End Date Joaquin Ramirez DO [address] [facility] [place] [address] PCP - General Family Medicine 11/02/18 documented as of this encounter
--- OUTSIDE RECORDS SUMMARY | 2023-03-01 16:21 | External Medical Summary | Summary of Care ---
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 DO NOT EXCEED A TOTAL OF 3 DOSES IN 15 MINUTES 25 Tablet 3 09/23/2021 Active Sodium Chloride 1 GM Oral Tablet Take 1 Tablet by mouth in the morning and 1 Tablet before bedtime. 0 01/05/2022 Active Clopidogrel Bisulfate 75 MG Oral Tablet (pLAVix) Take 1 tablet by mouth once daily 90 Tablet 3 05/06/2022 Active Metoprolol Succinate ER 25 MG Oral Tablet Extended Release 24 Hour (toPROL XL)Indications:CAD (coronary artery disease),HTN, goal below 140/90 Take 1/2 (one-half) tablet by mouth once daily 45 Tablet 2 07/28/2022 Active Atorvastatin Calcium 80 MG Oral Tablet (Lipitor)Indications: Dyslipidemia, goal LDL below 100 Take 1 tablet by mouth once daily 90 Tablet 2 07/28/2022 Active Famotidine 20 MG Oral Tablet (Pepcid)Indications:G astroesophageal reflux disease without esophagitis TAKE 1 TABLET BY MOUTH ONCE DAILY NEEDED FOR HEART BURN 30 Tablet 3 10/12/2022 Active Pantoprazole Sodium 40 MG Oral Tablet Delayed Release (Protonix)Indications :Gastroesophageal reflux disease without esophagitis Take 1 Tablet by mouth in the morning. 30 Tablet 2 10/18/2022 Active documented as of this encounter (statuses as of 10/22/2022) Active Problems Problem Noted Date Lung consolidation [...] stent 01/16/2003 Blindness, one eye 01/16/2003 FM [id number] DIS NEC 01/11/2002 documented as of this encounter (statuses as of 10/22/2022) Resolved Problems Problem Noted Date Resolved Date [...] as of this encounter (statuses as of 10/22/2022) Immunizations Name Administration Dates Next Due Diptheria/Tetanus (Adult) 09/08/2001 Pneumococcal Conjugate Vacci ne, 20-valent ([id number]) 01/11/2022 Seasonal Influenza, QUAD, wi th Preserv, [...] on file documented as of this encounter Miscellaneous Notes * Telephone Encounter - Ellis Rudd RPh - 10/22/2022 9:04 AM EDT Refused Prescriptions: Disp Refills Lisinopril 10 MG Oral Tablet (Prinivil) 90 Tab*0 Sig: Take 1 tablet by mouth once dailyRefused By: ELLIS RUDD for Refusal: Course of treatment com plete documented in this encounter Plan of Treatment Upcoming Encounters Date Type Specialty Care Team Description 04/20/2023 Office Visit Cardiology Yves Veloz Jr., DO 05/31/2023 Office Visit Hematology Oncology Marcial Mayer MD [address] [facility] [place] [address] Health Maintenance Due Date Last Done Comments COVID-19 Vaccine (#1) 1940 Albumin/Creatinine Ratio 1954 Zoster Vaccines (1 of 2) 12/24/1955 DTaP,Tdap,and Td Vaccines (2 - Td or Tdap) 06/28/2022 06/28/2012, 09/08/2001 AAA MONITORING; CT OR US YEARLY 11/08/2022 11/08/2021, 08/26/2021, 04/16/2021, Additional history exists Influenza Vaccine (FLU shot) (#1) 2022 01/11/2022, 02/26/2021, 01/14/2020, Additional history exists Depression Screening, Annual for Pts 12 and Over 01/11/2023 01/11/2022 CKD HGB USE SMARTSET 98258 03/29/202303/29, 03/29/2022, 11/04/2021, Additional history exists CKD PHOS USE SMARTSET 75184 03/29/2023 12, 02/17/2021, 10/09/2019, Additional history exists HbA1c 03/29/2023 03/29/2022, 01/08, 04/30/2018 AAA ULTRASOUND YEARLY Discontinued 11/08/2021 , 08/26/2021, 04/16/2021, Additional history exists Pneumococcal Vaccine: 65+ Years Completed 01/11/2022, 12/17/2004 [...] Not on filedocumented as of this encounter Visit Diagnoses Diagnosis 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
--- OUTSIDE RECORDS SUMMARY | 2023-03-01 16:21 | External Medical Summary | Summary of Care ---
Author Name Unknown Organization [facility] Address [address] [facility] [place] [address] Phone [phone] Care Team Providers Care Data Quality Consultant Name Role Phone Joaquin Ramirez DO Primary Care Provider + [phone] Reason for Visit * Reason Comments eRx-Medication Refill Encounter Details Date Type Department Care Team Description 10/11/2022 Refill General Internal Medicine [facility] [address] [place] [address] Joaquin Ramirez DO [address] [facility] [place] [address] Gastroesophageal reflux disease without esophagitis Allergies No known active allergiesdocumented as of this encounter (statuses as of 10/12/2022) Medications Medication Sig Dispensed Refills Start Date End Date Status Multiple Vitamins-Minerals (MULTIVITAMIN ADULT) TABS Take by mouth. 0 Active Nitroglycerin 0.4 MG Sublingual Tablet Sublingual (Nitrostat)Indica tions:Coronary artery disease involving [place] coronary artery of [place] heart without angina pectoris DISSOLVE ONE TABLET [...] Active Atorvastatin Calcium 80 MG Oral Tablet (Lipitor)Indicati ons:Dyslipidemia, goal LDL below 100 Take 1 tablet by mouth once daily 90 Tablet 2 07/28/2022 Active Famotidine 20 MG Oral Tablet (Pepcid)Indicatio ns:Gastroesophage al reflux disease without esophagitis TAKE 1 TABLET BY MOUTH ONCE DAILY NEEDED FOR HEART BURN 30 Tablet 3 10/12/2022 Active Famotidine 20 MG Oral Tablet (Pepcid)Indicatio ns:Gastroesophage al reflux disease without esophagitis Take 1 Tablet by mouth daily as needed for Heartburn. 30 Tablet 2 07/28/2022 10/12/2022 Discontinued documented as of this encounter (statuses as of 10/12/2022) Active Problems Problem Noted Date Lung consolidation [...] stent 01/16/2003 Blindness, one eye 01/16/2003 FM [id number] DIS NEC 01/11/2002 documented as of this encounter (statuses as of 10/12/2022) Resolved Problems Problem Noted Date Resolved Date [...] as of this encounter (statuses as of 10/12/2022) Immunizations Name Administration Dates Next Due Diptheria/Tetanus (Adult) 09/08/2001 Pneumococcal Conjugate Vacci ne, 20-valent ([id number]) 01/11/2022 Seasonal Influenza, QUAD, wi th Preserv, [...] encounter Miscellaneous Notes * Telephone Encounter - Liana Pace RPh - 10/12/2022 11:30 AM EDTSigned Prescriptions: Disp Refills Famotidine 20 MG Oral Tablet (Pepcid) 30 Tab*3 Sig: TAKE 1 TABLET BY MOUTH ONCE DAILY NEEDED FOR HEART BURNAuthorizing Provider: Franklyn RAMIREZ User:LIANA PACE documented in this encounter Plan of Treatment Upcoming Encounters Date Type Specialty Care Team Description 04/20/2023 Office Visit Cardiology Magdiel Diana, Yves Khalil DO 05/31/2023 Office Visit Hematology Oncology Marcial Mayer MD [address] [facility], [place] [address] Health Maintenance Due Date Last Done Comments COVID-19 Vaccine (#1) 06/22/1936 Albumin/Creatinine Ratio 1954 Zoster Vaccines (1 of 2) 12/24/1955 DTaP,Tdap,and Td Vaccines (2 - Td or Tdap) 06/28/2022 06/28/2012, 09/08/2001 AAA MONITORING; CT OR US YEARLY 11/08/2022 11/08/2021, 08/26/2021, 04/16/2021, Additional history exists Depression Screening, Annual for Pts 12 and Over 01/11/2023 01/11/2022 CKD HGB USE SMARTSET 25593 03/29/202303/29, 03/29/2022, 11/04/2021, Additional history exists CKD PHOS USE SMARTSET 50212 03/29/202303/11, 02/17/2021, 10/09/2019, Additional history exists HbA1c 03/29/2023 03/29/2022, 01/08, 04/30/2018 AAA ULTRASOUND YEARLY Discontinued 11/08/2021 , 08/26/2021, 04/16/2021, Additional history exists Influenza Vaccine (FLU shot) Completed 01/11/2022, 02/26/2021, 01/14/2020, Additional history exists Pneumococcal Vaccine: 65+ Years [...] as of this encounter Visit Diagnoses Diagnosis Gastroesophageal reflux disease without esophagitis Esophageal reflux documented in this encounter Care Teams Data Quality Consultant Relationship Specialty Start Date End Date Joaquin Ramirez DO [address] [place] [address] PCP - General Family Medicine 11/02/18 documented as of this encounter
--- OUTSIDE RECORDS SUMMARY | 2023-03-01 16:21 | External Medical Summary | Summary of Care ---
Author Name Unknown Organization [facility] Address [address] [facility] [place] [address] Phone [phone] Care Team Providers Care Refinery Operator Light Ends Recovery Name Role Phone Joaquin Ramirez DO Primary Care Provider + [phone] Reason for Visit * Reason Comments eRx-Medication Refill Encounter Details Date Type Department Care Team Description 01/25/[address] [facility] [address] [facility] [place] [address] Joaquin Ramierz DO [address] [place] [address] Gastroesophageal reflux disease without esophagitis Allergies No known active allergiesdocumented as of this encounter (statuses as of 01/26/2023) Medications Medication Sig Dispensed Refills Start Date End Date Status Multiple Vitamins-Minerals (MULTIVITAMIN ADULT) TABS Take by mouth. 0 Active Nitroglycerin 0.4 MG Sublingual Tablet Sublingual (Nitrostat)Indica tions:Coronary artery disease involving [place] coronary artery of [place] heart without angina pectoris DISSOLVE ONE TABLET [...] once daily 90 Tablet 2 07/28/2022 Active Pantoprazole Sodium 40 MG Oral Tablet Delayed Release (Protonix)Indicat ions:Gastroesopha geal reflux disease without esophagitis TAKE 1 TABLET BY MOUTH IN THE MORNING 30 Tablet 2 12/30/2022 Active Famotidine 20 MG Oral Tablet (Pepcid)Indicatio ns:Gastroesophage al reflux disease without esophagitis TAKE 1 TABLET BY MOUTH ONCE DAILY NEEDED FOR HEART BURN 30 Tablet 0 01/26/2023 Active Famotidine 20 MG Oral Tablet (Pepcid)Indicatio ns:Gastroesophage al reflux disease without esophagitis TAKE 1 TABLET BY MOUTH ONCE DAILY NEEDED FOR HEART BURN 30 Tablet 3 10/12/2022 01/26/2023 Discontinued documented as of this encounter (statuses as of 01/26/2023) Active Problems Problem Noted Date Lung consolidation [...] stent 01/16/2003 Blindness, one eye 01/16/2003 FM [id number] DIS NEC 01/11/2002 documented as of this encounter (statuses as of 01/26/2023) Resolved Problems Problem Noted Date Resolved Date [...] as of this encounter (statuses as of 01/26/2023) Immunizations Name Administration Dates Next Due Diptheria/Tetanus (Adult) 09/08/2001 Pneumococcal Conjugate Vacci ne, 20-valent ([id number]) 01/11/2022 Seasonal Influenza, QUAD, wi th Preserv, [...] encounter Miscellaneous Notes * Telephone Encounter - Sparkle Mendoza RP - 01/26/2023 8:03 AM EDTSigned Prescriptions: Disp Refills Famotidine 20 MG Oral Tablet (Pepcid) 30 Tab*0 Sig: TAKE 1 TABLET BY MOUTH ONCE DAILY NEEDED FOR HEART BURNAuthorizing Provider: LIBBY SCHULTZ User:SPARKLE MENDOZA documented in this encounter Plan of Treatment Upcoming Encounters Date Type Specialty Care Team Description 04/26/2023 Office Visit Cardiology Nica Benitez PA-C [address] [place] [address] 05/31/2023 Office Visit [facility]ematology Oncology [facility] [address] [facility] [address] Health Maintenance Due Date Last Done Comments COVID-19 Vaccine (#1) 1940 Albumin/Creatinine Ratio 1954 Zoster Vaccines (1 of 2) 12/24/1955 DTaP,Tdap,and Td Vaccines (2 - Td or Tdap) 06/28/2022 06/28/2012, 09/08/2001 Influenza Vaccine (FLU shot) (#1) 2022 01/11/2022, 02/26/2021, 01/14/2020, Additional history exists Depression Screening 01/11/2023 01/11/2022 CKD HGB USE SMARTSET 87112 03/29/202303/29, 03/29/2022, 11/04/2021, Additional history exists CKD PHOS USE SMARTSET 50308 03/29/202303/11, 02/17/2021, 10/09/2019, Additional history exists HbA1c [...] reflux documented in this encounter Care Teams Refinery Operator Light Ends Recovery Relationship Specialty Start Date End Date Joaquin Ramirez DO [address] [place] [address] PCP - General Family Medicine 11/02/18 documented as of this encounter
--- OUTSIDE RECORDS SUMMARY | 2023-03-01 16:21 | External Medical Summary | Summary of Care ---
Author Name Unknown Organization [facility] Address [address] [facility] [place] [address] Phone [phone] Care Team Providers Care Product Safety Technician Name Role Phone Joaquin Ramirez DO Primary Care Provider + [phone] Reason for Visit * Reason Onset Date Comments Med Request 10/18/2022 Encounter Details Date Type Department Care Team Description 10/18/2022 Telephone Family Practice [facility] [address] [place] [address] Joaquin Ramirez DO [address] [place] [address] Med Request Allergies No known active allergiesdocumented as of this encounter (statuses as of 10/18/2022) Medications Medication Sig Dispensed Refills Start Date End Date Status Multiple Vitamins-Minerals (MULTIVITAMIN ADULT) TABS Take by mouth. 0 Active Nitroglycerin 0.4 MG Sublingual Tablet Sublingual (Nitrostat)Indication s:Coronary artery disease involving [place] coronary artery of [place] heart without angina pectoris DISSOLVE ONE TABLET [...] as of this encounter (statuses as of 10/18/2022) Active Problems Problem Noted Date Lung consolidation [...] stent 01/16/2003 Blindness, one eye 01/16/2003 FM [id number] DIS NEC 01/11/2002 documented as of this encounter (statuses as of 10/18/2022) Resolved Problems Problem Noted Date Resolved Date [...] as of this encounter (statuses as of 10/18/2022) Immunizations Name Administration Dates Next Due Diptheria/Tetanus (Adult) 09/08/2001 Pneumococcal Conjugate Vacci ne, 20-valent ([id number]) 01/11/2022 Seasonal Influenza, QUAD, wi th Preserv, [...] encounter Miscellaneous Notes * Telephone Encounter - Joaquin Ramirez DO - 10/18/2022 6:04 PM EDT Spoke with patient daughter. Prescription pantoprazole 40 mg 1 tab once daily sent to pharmacy. Patient advise Pepcid 20 mg twice daily. Consider light bedtime snack Patient advised to call or return to office if symptoms persist or worsen. * Telephone Encounter - Leonard Gracia RN - 10/18/2022 5:28 PM EDT Provider to address: Dr. Ramirez Reason for Call: Med Request Contact: Telephone Call Contact Type: Medication Outcome: Please see call details. Called and spoke with patient's daughter Teressa. Teressa said the patient has been experiencing bad heart burn at night for the past couple of months. She said he is taking the Famotidine as directed on his medication list. She said the patient also takes [place] Seltzergummies which help for a little, but the patient will get up around 2:00 in the morning with heart burn. Pharmacy confirmed. Please advise. Total Time including non face to face (minutes): 5 * Telephone Encounter - KELLY Rubio - 10/18/2022 3:15 PM EDT Please see call details documented in this encounter Plan of Treatment Upcoming Encounters Date Type Specialty Care Team Description 04/20/2023 Office Visit Cardiology Magdiel Diana, Yves Khalil DO 05/31/2023 Office Visit Hematology Oncology Marcial Mayer MD [address] [place] [address] Health Maintenance Due Date Last Done Comments [...] Over 01/11/2023 01/11/2022 CKD HGB USE SMARTSET 67641 03/29/202303/29, 03/29/2022, 11/04/2021, Additional history exists CKD PHOS USE SMARTSET 14339 03/29/202303/11, 02/17/2021, 10/09/2019, Additional history exists HbA1c [...] Visit Diagnoses Diagnosis Gastroesophageal reflux disease without esophagitis- Primary Esophageal reflux documented in this encounter Care Teams Product Safety Technician Relationship Specialty Start Date End Date Joaquin Ramirez DO [address] [place] [address] PCP - General Family Medicine 11/02/18 documented as of this encounter
--- OUTSIDE RECORDS SUMMARY | 2023-03-01 16:21 | External Medical Summary | Summary of Care ---
Author Name Unknown Organization [facility] Address [address] [facility] [place] [address] Phone [phone] Care Team Providers Care Intel Recruiter Name Role Phone Joaquin Ramirez DO Primary Care Provider + [phone] Reason for Visit * Reason Comments eRx-Medication Refill Encounter Details Date Type Department Care Team Description 12/30/2022 Refill Family Practice [facility] [address] [place] [address] Joaquin Ramirez DO [address] [place] [address] Gastroesophageal reflux disease without esophagitis Allergies No known active allergiesdocumented as of this encounter (statuses as of 12/30/2022) Medications Medication Sig Dispensed Refills Start Date End Date Status Multiple Vitamins-Minerals (MULTIVITAMIN ADULT) TABS Take by mouth. 0 Active Nitroglycerin 0.4 MG Sublingual Tablet Sublingual (Nitrostat)Indica tions:Coronary artery disease involving [place] coronary artery of [place] heart without angina pectoris DISSOLVE ONE TABLET [...] THE MORNING 30 Tablet 2 12/30/2022 Active Pantoprazole Sodium 40 MG Oral Tablet Delayed Release (Protonix)Indicat ions:Gastroesopha geal reflux disease without esophagitis Take 1 Tablet by mouth in the morning. 30 Tablet 2 10/18/2022 12/30/2022 Discontinued documented as of this encounter (statuses as of 12/30/2022) Active Problems Problem Noted Date Lung consolidation [...] stent 01/16/2003 Blindness, one eye 01/16/2003 FM [id number] DIS NEC 01/11/2002 documented as of this encounter (statuses as of 12/30/2022) Resolved Problems Problem Noted Date Resolved Date [...] as of this encounter (statuses as of 12/30/2022) Immunizations Name Administration Dates Next Due Diptheria/Tetanus (Adult) 09/08/2001 Pneumococcal Conjugate Vacci ne, 20-valent ([id number]) 01/11/2022 Seasonal Influenza, QUAD, wi th Preserv, [...] encounter Miscellaneous Notes * Telephone Encounter - Chan aClles RPh - 12/30/2022 12:39 PM EDTSigned Prescriptions: Disp Refills Pantoprazole Sodium 40 MG Oral Tablet Griselda*30 Tab*2 Sig: TAKE 1 TABLET BY MOUTH IN THE MORNINGAuthorizing Provider: Franklyn RAMIREZ User: CHAN CALLES documented in this encounter Plan of Treatment Upcoming Encounters Date Type Specialty Care Team Description 04/20/2023 Office Visit Cardiology Magdiel Diana, Yves Khalil, 05/31/2023 Office Visit Hematology Oncology Marcial Mayer MD [address] [place] [address] Health Maintenance Due Date Last Done Comments COVID-19 Vaccine (#1) 1940 Albumin/Creatinine Ratio 1954 Zoster Vaccines (1 of 2) 12/24/1955 DTaP,Tdap,and Td Vaccines (2 - Td or Tdap) 06/28/2022 06/28/2012, 09/08/2001 Influenza Vaccine (FLU shot) (#1) 2022 01/11/2022, 02/26/2021, 01/14/2020, Additional history exists Depression Screening 01/11/2023 01/11/2022 CKD HGB USE SMARTSET 89650 03/29/202303/29, 03/29/2022, 11/04/2021, Additional history exists CKD PHOS USE SMARTSET 76634 03/29/202303/11, 02/17/2021, 10/09/2019, Additional history exists HbA1c [...] reflux documented in this encounter Care Teams Intel Recruiter Relationship Specialty Start Date End Date Joaquin Ramirez DO [address] [place] [address] PCP - General Family Medicine 11/02/18 documented as of this encounter
--- NOTE | 2023-03-01 16:52 | CT Scan Report ---
CT chest diagnostic wo con CT DOSE: 694.84 mGy.cm HISTORY: Follow-up right lower lobe density. TECHNIQUE: Multiaxial CT images of the chest were performed without contrast. A dose lowering techni que was utilized adhering to the principles of ALARA. COMPARISON: Chest CTA 12/30/2021. FINDINGS: Lobular consolidation within the perihilar location of the right upper lobe has slightly in creased in size. This measures approximately 4.8 x 3.9 cm, previously measuring 3.9 x 3.6 cm. This re sults in mild mass effect along the right upper lobe bronchi. This likely extends into the adjacent r ight middle lobe. The increase in size in the interval is highly suspicious for a primary bronchogeni c malignancy. No pneumothorax. No pleural effusions. The lobular density within the right lung base s een on the prior chest x-ray appears to correspond to a small fat-containing right-sided [place] he rnia. A few scattered linear scarlike densities seen within the lungs. Patchy airspace opacity within the base of the left lower lobe is new from the prior study. This favors a pneumonia. No evidence fo r pulmonary edema. No suspicious lytic are blastic osseous lesions. Mild anterior wedging within the mid thoracic spine vertebral body is likely chronic. Limited views of the upper abdomen demonstrate a normal liver and adrenal glands. There are few punctate calcified granulomas within the spleen. Prio r cholecystectomy. The heart is mildly enlarged. No pericardial effusion. Normal caliber esophagus. S evere coronary artery calcifications are noted. 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 Probable right hilar lymphadenopathy. This is obscured by the ri ght perihilar consolidation. There is right paratracheal, AP window, subcarinal adenopathy. A dominan t subcarinal lymph node measures 3.9 cm. A dominant right paratracheal lymph node measures 3.2 cm. Th is is also progressed in the interval. Trace pneumobilia is noted within the left hepatic lobe. IMPRESSION: 1. Interval increase in size in the right perihilar/upper lobe lobular consolidation with mild mass e ffect along the adjacent right upper lobe bronchi. This is highly suspicious for a primary bronchogen ic malignancy. Follow-up pulmonary consultation with bronchoscopy recommended for tissue diagnosis. 2. Interval progression of the mediastinal and right hilar lymphadenopathy which is highly suspicious for metastatic disease. 3. Patchy airspace opacities within the left lower lobe likely representing a pneumonia. This could b e due to prior aspiration. 4. 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 ACT 112: Positive. There are findings on this exam that require communication between the performing entity and the patient following Patient Test Result Information Act ([place] Act 112) guidelines. Electronically signed by: Gildardo Alves M.D. 03/01/2023 4:49 PM
[2023-03-01 17:00] LABS: Adenovirus PCR Not Detected (NotDetected); Bordetella parapertussis PCR Not Detected (NotDetected); Bordetella pertussis PCR Not Detected (NotDetected); Chlamydia pneumoniae PCR Not Detected (NotDetected); Coronavirus 229E PCR Not Detected (NotDetected); Coronavirus CoV-2 (COVID19)PCR Not Detected (NotDetected); Coronavirus HKU1 PCR Not Detected (NotDetected); Coronavirus NL63 PCR Not Detected (NotDetected); Coronavirus OC43PCR Not Detected (NotDetected); Human Metapneumovirus PCR Not Detected (NotDetected); Influenza A PCR Not Detected (NotDetected); Influenza B PCR Not Detected (NotDetected); Mycoplasma pneumoniae PCR Not Detected (NotDetected); Parainfluenza Virus 1 PCR Not Detected (NotDetected); Parainfluenza Virus 2 PCR Not Detected (NotDetected); Parainfluenza Virus 3 PCR Not Detected (NotDetected); Parainfluenza Virus 4 PCR Not Detected (NotDetected); Respiratory Syncytial VirusPCR Not Detected (NotDetected); Rhinovirus/Enterovirus PCR Not Detected (NotDetected)
[2023-03-01] MEDS ORDERED: ACETAMINOPHEN 325 MG TAB PO PRN (17:42)
[2023-03-01] MEDS ORDERED: UNASYN 3000MG / NS q6h IV STA (17:47)
[2023-03-01] MEDS ORDERED: AZITHROMYCIN 500 MG in DEXTROSE 5% 250 ML IV SCH (18:00)
[2023-03-01] MEDS ORDERED: Patient's HEIGHT &/or WEIGHT Needed SCH (18:00)
[2023-03-01] MEDS: AMPICILLIN/SULBACTAM SOD 3,000 MG in SODIUM CHLOR 0.9% MINI-B 100 ML IV SCH (23:41)
[2023-03-01] MEDS: HEPARIN SOD 5,000 UNIT/0.5 ML VIAL SQ SCH (23:41)
[2023-03-02 04:50] LABS: Hematocrit (blood only) 26.3 % (42.0-52.0); Hemoglobin 9.3 g/dl (14.0-18.0); Mean Corpuscular Hemoglobin 30.2 pg (25.0-34.0); Mean Corpuscular Hgb Conc 35.4 g/dL (32.0-36.0); Mean Corpuscular Volume 85.4 fL (80.0-100.0); Mean Platelet Volume 10.5 fL (9.4-12.4); Platelet Count 184 K/uL (130-400); RDW Coefficient of Variation 13.2 % (11.5-14.5); RDW Standard Deviation 41.4 fL (36.4-46.3); Red Blood Count 3.08 M/uL (4.70-6.10); White Blood Count 12.04 K/ul (4.8-10.8)
[2023-03-02 05:06] LABS: BUN Creatinine Ratio 15.5 (10-20); Calcium 8.7 mg/dl (8.6-10.3); Creatinine Clr Calc Pharmacy 47.2 ml/min; Est GFR (African American) 65.7 ml/min; Est GFR (Non-African American) 56.7 ml/min; Potassium 4.1 mmol/L (3.5-5.1)
[2023-03-02 05:21] LABS: Thyroid Stimulating Hormone 1.469 uIu/ml (0.300-4.500)
[2023-03-02] MEDS: AMPICILLIN/SULBACTAM SOD 3,000 MG in SODIUM CHLOR 0.9% MINI-B 100 ML IV SCH ×3 (06:43→18:47)
[2023-03-02] MEDS: HEPARIN SOD 5,000 UNIT/0.5 ML VIAL SQ SCH ×3 (06:44→21:23)
[2023-03-02] MEDS: ATORVASTATIN 40 MG TAB PO SCH (08:28)
[2023-03-02] MEDS: PANTOprazole 40 MG TAB PO SCH (08:28)
[2023-03-02] MEDS: SODIUM CHLORIDE 1 GM TABLET PO SCH (08:28)
[2023-03-02] MEDS: METOPROLOL SUCC 25MG EXT REL TAB PO SCH ×2 (08:29→08:34)
[2023-03-02] MEDS ORDERED: CLOPIDOGREL BISULFATE 75 MG TAB PO SCH (09:00)
--- NOTE | 2023-03-02 09:06 | Pulmonary Consultation ---
Date of Consultation March 02, 2023 Assessment & Plan (1) Pulmonary mass: (2) Pneumonia: Laterality: unspecified laterality Lung location: unspecified part of lung Pneumonia type: due to unspecified organism Qualified Code(s): J18.9 - Pneumonia, unspecified organism (3) Mediastinal adenopathy: Plan Impression: 87-year-old male with prior history of B-cell lymphoma now with mediastinal adenopathy and a right upper lobe mass as well as some patchy basilar infiltrates concerning for pneumonia. These were noted on a CT scan from over a year ago but it is unclear if the patient's had any significant follow-up since then. Recommendations: 1. Probable aspiration pneumonia: Agree with antibiotics and speech therapy evaluation. Would anticipate antimicrobial therapy for 5 to 7 days. 2. Pulmonary mass: Ideally would pursue bronchoscopy with biopsy however the patient is on Plavix and this would need to be held for 5 days prior to invasive procedures. This can be addressed as an outpatient if the patient and family wish to pursue it. Outpatient PET scanning and bronchoscopy with endobronchial ultrasound and transbronchial needle aspiration would be recommended. I would be happy to see the patient back in the outpatient pulmonary clinic to facilitate follow-up and diagnostic procedures if the patient and family wish to pursue additional intervention. Would recommend MRI of the brain with contrast. 3. Management the patient's other medical issues per primary admitting service. Thanks for the opportunity of caring for this patient. Will be happy to arrange outpatient follow-up. Feel free to contact us with questions or concerns. Would recommend that his Plavix be held moving forward to facilitate diagnostic intervention. History of Present Illness Attending Physician: Janes Webster MD History of Present Illness Asked by hospitalist to assist in evaluation management this patient with an abnormal CT scan. History is obtained from limited discussion with the patient due to underlying dementia as well as review the electronic medical record. The patient is a 87-year-old male with a trivial remote tobacco history. He presented to the emergency room yesterday with weakness falls and cough. His history he relates a history of B-cell lymphoma status post radiation but the patient is unaware of this diagnosis and does not provide any additional details. He was admitted to the hospital about a year ago and at that point time had an abnormal CT scan showing some mediastinal adenopathy as well as a potential left suprahilar mass. Outpatient pulmonary follow-up and follow-up with his primary care provider was recommended. It is unclear whether this was ever accomplished as the patient cannot relate any history. Patient had a repeat CT scan performed this hospitalization which demonstrated interval increase in the suprahilar mass and mediastinal adenopathy. Review of the patient's clinical notes from [facility] medical oncology from 2018 as well as radiation oncology from 2017 indicate that the patient had intra- abdominal low-grade B-cell lymphoma diagnosed in 2013. He was being evaluated for an aortic aneurysm at that point in time and it demonstrated some periaortic lymph nodes. FNA showed atypical lymphoid infiltrates consistent with B-cell lymphoma. He also underwent FNA of a right perinephric soft tissue mass which showed B-cell lymphoma as well. Patient declined systemic chemotherapy and was treated with 3000 cGy of radiation to the right renal hilar region between November and December 2015. She had PET scanning performed back in 2016 which showed stable bilateral FDG activity. It is unclear if the patient had additional surveillance or follow-up. Allergies Allergy/AdvReac Type Severity Reaction Status Date / Time No Known Allergies Allergy Unknown Verified 03/01/23 15:00 Home Medications Medication Instructions Recorded Confirmed Type nitroglycerin 0.4 mg sublingual 0.4 mg sublingual DIRECTED PRN 06/09/18 03/01/23 History tablet (Nitrostat) Chest Pain atorvastatin 80 mg tablet 80 mg PO QAM #30 tabs 02/07/21 03/01/23 Rx clopidogrel 75 mg tablet 75 mg PO DAILY #30 tabs 02/07/21 03/01/23 Rx metoprolol succinate 25 mg 12.5 mg (1/2 x 25 mg) PO DAILY #30 02/07/21 03/01/23 Rx tablet,extended release 24 hr tabs (Toprol XL) multivitamin 1 tab PO DAILY #30 tabs 02/07/21 03/01/23 Rx pantoprazole 40 mg tablet,delayed 40 mg PO DAILY #30 tabs 02/07/21 03/01/23 Rx release famotidine 20 mg tablet 20 mg PO DAILY PRN Heartburn 03/01/23 03/01/23 History sodium chloride 1,000 mg soluble 1,000 mg PO DAILY 03/01/23 03/01/23 History tablet Patient History Medical History (Updated 03/02/23 @ 09:13 by Kevin Hein MD) Chronic hyponatremia History of COVID-19 Cerebrovascular disease TIA RUE weakness 02/23/20 GERD (gastroesophageal reflux disease) Do not resuscitate status Per pt's advance directives. 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 Brunner Status post coronary artery stent placement Family History Mother Heart disease Father Myocardial infarction Sister Cancer ? 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 Clinical Statistical Programmer Required: No Beliefs That Will Affect Care: None marital status: / Current Living Situation: Family Current Living Situation Comment: Help from daughter current occupational status: retired How many Children do You have: 2 Other Information That Helps Us Care for You: No Feels Safe at Home: Yes Safety Concerns: Feels Safe At This Time Assistive Devices: Denture - Upper, Denture - Lower, Glasses and Walker Review of Systems Review of Systems: Unobtainable due to cognitive status Physical Exam Constitutional: well developed and well nourished Eyes: EOM intact 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 ENMT: Ears: no external ear abnormality Nose: no external nose abnormality Mouth: + dry oral mucous membranes Neck: no nuchal rigidity Respiratory: normal respiratory effort; no cough Auscultation: + diminished lung sounds and + crackles (bibasilar) Cardiovascular: Rate/Rhythm: regular rhythm and + bradycardic Extremities: no edema Gastrointestinal (Abdomen): Inspection/Auscultation: normal bowel sounds Percussion/Palpation: abdomen soft; abdomen nontender Musculoskeletal: Extremities: strength 5/5 throughout Skin: no rashes, warm and dry Neurologic: lethargic and hoarse but speaks carmencita goldstein Results & Data Results & Data Vital Signs (Past 12 Hours) Vital Signs Temp Pulse Pulse Resp BP Pulse Ox O2 Del Method 03/02/23 07:44 58 L 03/02/23 06:47 54 L 20 136/67 99 Room Air 03/01/23 23:41 37.1 C 66 18 147/88 H 94 Room Air 03/01/23 22:09 78 03/01/23 21:12 Room Air 03/01/23 21:12 67 18 Room Air Critical Care Results & Data Vital Signs (Past 12 Hours) Vital Signs Temp Pulse Pulse Resp BP Pulse Ox O2 Del Method 03/02/23 09:08 56 L 16 134/74 97 Room Air 03/02/23 07:44 58 L 03/02/23 06:47 54 L 20 136/67 99 Room Air 03/01/23 23:41 37.1 C 66 18 147/88 H 94 Room Air 03/01/23 22:09 78 03/01/23 21:12 Room Air 03/01/23 21:12 67 18 Room Air Lab & Micro Results (Past 24 Hours) RBC 3.08 M/uL (4.70-6.10) L 03/02/23 WBC 12.04 K/ul (4.8-10.8) H 03/02/23 Hgb 9.3 g/dl (14.0-18.0) L 03/02/23 Hct 26.3 % (42.0-52.0) L 03/02/23 MCV 85.4 fL (80.0-100.0) 03/02/23 MCH 30.2 pg (25.0-34.0) 03/02/23 MCHC 35.4 g/dL (32.0-36.0) 03/02/23 RDW Standard Deviation 41.4 fL (36.4-46.3) 03/02/23 RDW Coefficient of Variation 13.2 % (11.5-14.5) 03/02/23 Plt Count 184 K/uL (130-400) 03/02/23 MPV 10.5 fL (9.4-12.4) 03/02/23 Neutrophils (%) (Auto) 83.0 % 03/01/23 Lymphocytes (%) (Auto) 5.3 % 03/01/23 Monocytes # (Auto) 1.53 K/uL (0.11-0.59) H 03/01/23 Eosinophils # (Auto) 0.00 K/uL (0.00-0.50) 03/01/23 Immature Granulocyte % (Auto) 0.4 % 03/01/23 Neutrophils # (Auto) 11.31 K/uL (1.40-6.50) H 03/01/23 Lymphocytes # (Auto) 0.72 K/uL (1.20-3.40) L 03/01/23 Monocytes # (Auto) 1.53 K/uL (0.11-0.59) H 03/01/23 Eosinophils # (Auto) 0.00 K/uL (0.00-0.50) 03/01/23 Basophils # (Auto) 0.02 K/uL (0.00-0.20) 03/01/23 Immature Granulocyte # (Auto) 0.06 K/uL (0.01-0.20) 3 Na 133 mmol/L (136-145) L 03/02/23 K 4.1 mmol/L (3.5-5.1) 03/02/23 Cl 104 mmol/L (98-107) 03/02/23 CO2 23 mmol/L (21-32) 03/02/23 Anion Gap 6 (3-11) 03/02/23 BUN 18 mg/dl (6-23) 03/02/23 Creatinine 1.16 mg/dl (0.6-1.4) 03/02/23 Estimated GFR ( Amer) 65.7 ml/min 03/02/23 Estimated GFR (Non-Af Amer) 56.7 ml/min 03/02/23 BUN/Creatinine Ratio 15.5 (10-20) 03/02/23 Glu 115 mg/dl (70-99(Fasting)) H 03/02/23 Ca 8.7 mg/dl (8.6-10.3) 03/02/23 Total Bilirubin 1.3 mg/dl (0.2-1.0) H 03/01/23 AST 18 U/L (13-39) 03/01/23 ALT 13 U/L (7-52) 03/01/23 Alkaline Phosphatase 67 U/L (34-104) 03/01/23 TP 7.0 gm/dl (6.0-8.3) 03/01/23 Albumin 4.0 gm/dl (3.4-5.0) 03/01/23 Globulin 3.0 gm/dl (2.5-4.0) 03/01/23 Albumin/Globulin Ratio 1.3 (0.9-2) 03/01/23 Calcium Level 8.7 mg/dl (8.6-10.3) 03/02/23 04:25 Prothromb Time International Ratio 1.1 (0.9-1.1) 03/01/23 12:5 7 Diagnostic Findings (Past 24 Hours) Chest X-Ray 03/01/23 12:52 XR chest 1V not portable HISTORY: Chest pain, nonspecific COMPARISON: Chest 12/30/2021. FINDINGS: No pneumothorax. There are low lung volumes. The cardiac silhouette remains mildly enlarged. Interstitial thickening at the lung bases persists. This is likely chronic. No evidence for pulmonary edema. A 2.9 cm right perihilar nodular density persists. A right lower lobe/infrahilar lobular density has progressed. IMPRESSION: 1. Interval development of right lower lobe/infrahilar lobular density. This could represent atelectasis, pneumonia, or pulmonary lesion. 2. No change in the 2.9 cm right perihilar lobular density. Follow-up nonemergent chest CT is recommended to assess for a pulmonary lesion. ACT 112: Negative or not required by law. Electronically signed by: Gildardo Alves M.D. 03/01/2023 3:[address] 03/01/23 12:[address] DOSE: 663.26 mGy.cm HISTORY: Confusion. Fall. TECHNIQUE: Multiaxial CT images of the head were performed without the use of intravenous contrast. Automated exposure control was utilized for this study. A dose lowering technique was utilized adhering to the principles of ALARA. Comparison: Head CT 12/30/2021. Findings: Partial opacification of the right ethmoid air cells. The mastoid air cells are clear. Prior bilateral lens replacement. The calvarium and skull base are intact. There is no mass, hematoma, midline shift, acute infarct. White matter hypodensity is nonspecific but suggestive of microvascular ischemic change. The ventricles and sulci demonstrate mild age-related involutional changes. 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 Bilateral basal ganglia calcifications again noted. Impression: No significant change compared to the prior study. No acute intracranial abnormality. ACT 112: Negative or not required by law. Electronically signed by: Gildardo Alves M.D. 03/01/2023 1:[address] 03/01/23 16:18 CT chest diagnostic wo con CT DOSE: 694.84 mGy.cm HISTORY: Follow-up right lower lobe density. TECHNIQUE: Multiaxial CT images of the chest were performed without contrast. A dose lowering technique was utilized adhering to the principles of ALARA. COMPARISON: Chest CTA 12/30/2021. FINDINGS: Lobular consolidation within the perihilar location of the right upper lobe has slightly increased in size. This measures approximately 4.8 x 3.9 cm, previously measuring 3.9 x 3.6 cm. This results in mild mass effect along the right upper lobe bronchi. This likely extends into the adjacent right middle lobe. The increase in size in the interval is highly suspicious for a primary bronchogenic malignancy. No pneumothorax. No pleural effusions. The lobular density within the right lung base seen on the prior chest x-ray appears to correspond to a small fat-containing right-sided [place] hernia. A few scattered linear scarlike densities seen within the lungs. Patchy airspace opacity within the base of the left lower lobe is new from the prior study. This favors a pneumonia. No evidence for pulmonary edema. No suspicious lytic are blastic osseous lesions. Mild anterior wedging within the mid thoracic spine vertebral body is likely chronic. Limited views of the upper abdomen demonstrate a normal liver and adrenal glands. There are few punctate calcified granulomas within the spleen. Prior cholecystectomy. The heart is mildly enlarged. No pericardial effusion. Normal caliber esophagus. Severe coronary artery calcific ations are noted. 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 Probable right hilar lymphadenopathy. This is obscured by the right perihilar consolidation. There is right paratracheal, AP window, subcarinal adenopathy. A dominant subcarinal lymph node measures 3.9 cm. A dominant right paratracheal lymph node measures 3.2 cm. This is also progressed in the interval. Trace pneumobilia is noted within the left hepatic lobe. IMPRESSION: 1. Interval increase in size in the right perihilar/upper lobe lobular consolidation with mild mass effect along the adjacent right upper lobe bronchi. This is highly suspicious for a primary bronchogenic malignancy. Follow-up pulmonary consultation with bronchoscopy recommended for tissue diagnosis. 2. Interval progression of the mediastinal and right hilar lymphadenopathy which is highly suspicious for metastatic disease. 3. Patchy airspace opacities within the left lower lobe likely representing a pneumonia. This could be due to prior aspiration. 4. 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 ACT 112: Positive. There are findings on this exam that require communication between the performing entity and the patient following Patient Test Result Information Act ([place] Act 112) guidelines. Electronically signed by: Gildardo Alves M.D. 03/01/2023 4:49 PM I & O Totals 24 Hours 03/01/23 03/02/23 03/03/23 06:59 06:59 06:59 Intake Total 1505 / 1505 100 / 100 Balance 1505 / 1505 100 / 100 Cumulative 03/01/23 12:37 thru 03/02/23 07:59 Intake Total 1605 Balance 1605 RT Ventilator Mngmt (Last Documented) Ventilator Ordered Settings Respiratory Rate 16 03/02/23 09:08 Ventilator - PT Measurements Respiratory Rate 16 PG Care Time/CCT Total # of Minutes Spent Total Time Spent with Patient: Total time spent is greater than 50% in coordination of care (as documented) at patient's floor/unit and/or counseling patient: Coding Level of Care Code 04711 INT INP/OBS CARE 3/75MIN Diagnoses Pulmonary mass R91.8 Pneumonia J18.9 Laterality: unspecified laterality Lung location: unspecified part of lung Pneumonia type: due to unspecified organism Mediastinal adenopathy R59.0
--- NOTE | 2023-03-02 12:49 | Electrocardiogram Report ---
Test Reason : Blood Pressure : / mmHG Vent. Rate : 076 BPM Atrial Rate : 087 BPM P-R Int : 232 ms QRS Dur : 092 ms QT Int : 378 ms P-R-T Axes : 000 -26 068 degrees QTc Int : 425 ms Sinus rhythm with 1st degree A-V block Premature atrial complexes Minimal voltage criteria for LVH, may be normal variant ( R in aVL ) Borderline ECG When compared with ECG of 30-DEC-2021 02:08, Minimal criteria for Septal infarct are no longer Present Confirmed by Yusef Chapman ([id number]) on 03/02/2023 12:49:28 PM Referred By: Confirmed By:Yusef Chapman
--- NOTE | 2023-03-02 13:58 | Hospitalist Progress Note ---
Date of Service March 02, 2023 Assessment & Plan (1) Pneumonia: Plan: Patient presenting from home with reports of generalized weakness, falls, cough. Patient x-ray on admission personally reviewed; interval development of right lower lobe/infrahilar lobular density. This could represent atelectasis, pneumonia, or pulmonary lesion. Bio fire negative Procalcitonin <0.05 CT chest obtained to further evaluate right lower lobe density 1. Interval increase in size in the right perihilar/upper lobe lobular consolidation with mild mass effect along the adjacent right upper lobe bronchi. This is highly suspicious for a primary bronchogenic malignancy. Follow-up pulmonary consultation with bronchoscopy recommended for tissue diagnosis. 2. Interval progression of the mediastinal and right hilar lymphadenopathy which is highly suspicious for metastatic disease. 3. Patchy airspace opacities within the left lower lobe likely representing a pneumonia. This could be due to prior aspiration. Continue on Unasyn for possible aspiration pneumonia [employer] [facility] Pulmonology on board; ideally would pursue bronchoscopy with biopsy but patient is on Plavix which needs to be on hold. Recommend outpatient PET scan and bronchoscopy. Discussed with daughter over the phone. The patient was found to have suspicious right upper lobar consolidation in December of last year. Patient had follow-up with pulmonology; was offered bronchoscopy. He was followed with serial CT chest as outpatient. Teressa will discuss the next steps with his brother; and then will follow-up with pulmonology clinic. She is unsure she would like to pursue the diagnosis and treatment of the cancer at the moment. Plavix is kept on hold in case family wants to pursue bronchoscopy. (2) Weakness: Plan: Secondary to acute illness PT OT eval pending (3) Coronary artery disease: Plan: Appears stable, no reports of chest pain Continue Plavix, statin, beta-adonis (4) Cerebrovascular disease: Plan: Continue Plavix and statin (5) Chronic hyponatremia: Plan: Na+ 134 Continue salt tabs (6) Low grade B-cell lymphoma: Plan: Remote history of radiation treatment Follows with Dr. Mayer Currently under observation, patient declining additional treatment (7) Thoracic aortic aneurysm: Plan: CT chest 12/2021 - ascending thoracic aorta which measures up to 4.5 cm (8) GERD (gastroesophageal reflux disease): Plan: Continue PPI DVT PROPHYLAXIS SQ heparin Time spent evaluating patient, direct bedside care, chart review, placing orders, interpretation of diagnostic studies, discussion with consultants, patient, and family members, as well as other required patient management activities is 60 minutes Please note the above document was generated using voice recognition software. It may contain grammatical, syntax or spelling errors. Any formal questions or concerns about the content, text or information contained within the body of this dictation should be directly addressed to the provider for clarification Admission and Anticipated Discharge Date Admission Date: March 01, 2023 Subjective Patient seen and examined at bedside. He is comfortable lying in the bed; not in distress. He is saturating well on room air. Review of Systems Review of Systems: All systems reviewed & are unremarkable except as noted in Subjective Physical Exam Physical Exam: GENERAL:Awakeable; oriented to self. needs frequent redirection. Hard of h earing. HEENT: No pallor, no icterus. Left eye blindness. Right pupil reactive to light. Oral mucosa moist. NECK: No JVD, no neck masses. HEART: S1 and S2 heard. Regular rate and rhythm. No murmur, no gallop. RESPIRATORY SYSTEM: Decreased breath sound on right upper lung field. Clear breath sounds otherwise. ABDOMEN: Soft, bowel sounds present, nontender, no distention. CENTRAL NERVOUS SYSTEM: No facial droop. Moves extremities. EXTREMITIES: No edema, no erythema seen. Results & Data Results & Data Vital Signs (Past 12 Hours) Vital Signs Temp Pulse Pulse Pulse Resp BP BP 03/02/23 09:32 36.7 C 68 18 126/68 03/02/23 09:08 56 L 16 134/74 03/02/23 07:44 58 L 03/02/23 06:47 54 L 20 136/67 Pulse Ox O2 Del Method 03/02/23 09:32 95 Room Air 03/02/23 09:08 97 Room Air 03/02/23 07:44 03/02/23 06:47 99 Room Air Laboratory Results Laboratory Results WBC 12.04 K/ul (4.8-10.8) H 03/02/23 04:25 RBC 3.08 M/uL (4.70-6.10) L 03/02/23 04:25 Hgb 9.3 g/dl (14.0-18.0) L 03/02/23 04:25 Hct 26.3 % (42.0-52.0) L 03/02/23 04:25 MCV 85.4 fL (80.0-100.0) 03/02/23 04:25 MCH 30.2 pg (25.0-34.0) 03/02/23 04:25 MCHC 35.4 g/dL (32.0-36.0) 03/02/23 04:25 RDW Std Deviation 41.4 fL (36.4-46.3) 03/02/23 04:25 RDW Coeff of Roderick 13.2 % (11.5-14.5) 03/02/23 04:25 Plt Count 184 K/uL (130-400) 03/02/23 04:25 MPV 10.5 fL (9.4-12.4) 03/02/23 04:25 Immature Gran % (Auto) 0.4 % 03/01/23 12:57 Neut % (Auto) 83.0 % 03/01/23 12:57 Lymph % (Auto) 5.3 % 03/01/23 12:57 [place] % (Auto) 11.2 % 03/01/23 12:57 Eos % (Auto) 0.0 % 03/01/23 12:57 Baso % (Auto) 0.1 % 03/01/23 12:57 Neut # (Auto) 11.31 K/uL (1.40-6.50) H 03/01/23 12:57 Lymph # (Auto) 0.72 K/uL (1.20-3.40) L 03/01/23 12:57 [place] # (Auto) 1.53 K/uL (0.11-0.59) H 03/01/23 12:57 Eos # (Auto) 0.00 K/uL (0.00-0.50) 03/01/23 12:57 Baso # (Auto) 0.02 K/uL (0.00-0.20) 03/01/23 12:57 Immature Gran # (Auto) 0.06 K/uL (0.01-0.20) 03/01/23 12:57 PT 11.6 Seconds (9.0-12.0) 03/01/23 12:57 INR 1.1 (0.9-1.1) 03/01/23 12:57 APTT 29.3 Seconds (21.0-31.0) 03/01/23 12:57 PTT Ratio 1.0 03/01/23 12:57 Sodium 133 mmol/L (136-145) L 03/02/23 04:25 Potassium 4.1 mmol/L (3.5-5.1) 03/02/23 04:25 Chloride 104 mmol/L (98-107) 03/02/23 04:25 Carbon Dioxide 23 mmol/L (21-32) 03/02/23 04:25 Anion Gap 6 (3-11) 03/02/23 04:25 BUN 18 mg/dl (6-23) 03/02/23 04:25 Creatinine 1.16 mg/dl (0.6-1.4) 03/02/23 04:25 Est Cr Clr Drug Dosing 47.2 ml/min 03/02/23 04:25 Est GFR ( Amer) 65.7 ml/min 03/02/23 04:25 Est GFR (Non-Af Amer) 56.7 ml/min 03/02/23 04:25 BUN/Creatinine Ratio 15.5 (10-20) 03/02/23 04:25 Glucose 115 mg/dl (70-99(Fasting)) H 03/02/23 04:25 Calcium 8.7 mg/dl (8.6-10.3) 03/02/23 04:25 Total Bilirubin 1.3 mg/dl (0.2-1.0) H 03/01/23 12:57 AST 18 U/L (13-39) 03/01/23 12:57 ALT 13 U/L (7-52) 03/01/23 12:57 Alkaline Phosphatase 67 U/L (34-104) 03/01/23 12:57 Troponin I High Sens 7.9 pg/ml (0-20) 03/01/23 12:57 Total Protein 7.0 gm/dl (6.0-8.3) 03/01/23 12:57 Albumin 4.0 gm/dl (3.4-5.0) 03/01/23 12:57 Globulin 3.0 gm/dl (2.5-4.0) 03/01/23 12:57 Albumin/Globulin Ratio 1.3 (0.9-2) 03/01/23 12:57 Procalcitonin < 0.05 ng/ml (0-0.5) 03/01/23 12:59 TSH 1.469 uIu/ml (0.300-4.500) 03/02/23 04:25 Adenovirus (PCR) Not Detected (NotDetected) 03/01/23 15:48 B. pertussis DNA (PCR) Not Detected (NotDetected) 03/01/23 15:48 B.parapertussis DNA PCR Not Detected (NotDetected) 03/01/23 15:48 C. pneumoniae DNA (PCR) Not Detected (NotDetected) 03/01/23 15:48 Coronavirus OC43 (PCR) Not Detected (NotDetected) 03/01/23 15:48 Coronavirus HKU1 (PCR) Not Detected (NotDetected) 03/01/23 15:48 Coronavirus 229E (PCR) Not Detected (NotDetected) 03/01/23 15:48 SARS-CoV-2 (PCR) Not Detected (NotDetected) 03/01/23 15:48 Coronavirus NL63 (PCR) Not Detected (NotDetected) 03/01/23 15:48 Human Metapneumovir PCR Not Detected (NotDetected) 03/01/23 15:48 Influenza Type A (PCR) Not Detected (NotDetected) 03/01/23 15:48 Influenza Type B (PCR) Not Detected (NotDetected) 03/01/23 15:48 M. pneumoniae (PCR) Not Detected (NotDetected) 03/01/23 15:48 Parainfluenza 1 (PCR) Not Detected (NotDetected) 03/01/23 15:48 Parainfluenza 2 (PCR) Not Detected (NotDetected) 03/01/23 15:48 Parainfluenza 3 (PCR) Not Detected (NotDetected) 03/01/23 15:48 Parainfluenza 4 (PCR) Not Detected (NotDetected) 03/01/23 15:48 RSV (PCR) Not Detected (NotDetected) 03/01/23 15:48 Entero/Rhino (PCR) Not Detected (NotDetected) 03/01/23 15:48 Impressions Chest X-Ray 03/01/23 12:52 XR chest 1V not portable HISTORY: Chest pain, nonspecific COMPARISON: Chest 12/30/2021. FINDINGS: No pneumothorax. There are low lung volumes. The cardiac silhouette remains mildly enlarged. Interstitial thickening at the lung bases persists. This is likely chronic. No evidence for pulmonary edema. A 2.9 cm right perihilar nodular density persists. A right lower lobe/infrahilar lobular density has progressed. IMPRESSION: 1. Interval development of right lower lobe/infrahilar lobular density. This could represent atelectasis, pneumonia, or pulmonary lesion. 2. No change in the 2.9 cm right perihilar lobular density. Follow-up nonemergent chest CT is recommended to assess for a pulmonary lesion. ACT 112: Negative or not required by law. Electronically signed by: Gildardo Alves M.D. 03/01/2023 3:[address] 03/01/23 12:[address] DOSE: 663.26 mGy.cm HISTORY: Confusion. Fall. TECHNIQUE: Multiaxial CT images of the head were performed without the use of intravenous contrast. Automated exposure control was utilized for this study. A dose lowering technique was utilized adhering to the principles of ALARA. Comparison: Head CT 12/30/2021. Findings: Partial opacification of the right ethmoid air cells. The mastoid air cells are clear. Prior bilateral lens replacement. The calvarium and skull base are intact. There is no mass, hematoma, midline shift, acute infarct. White matter hypodensity is nonspecific but suggestive of microvascular ischemic change. The ventricles and sulci demonstrate mild age-related involutional changes. 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 Bilateral basal ganglia calcifications again noted. Impression: No significant change compared to the prior study. No acute intracranial abnormality. ACT 112: Negative or not required by law. Electronically signed by: Gildardo Alvse M.D. 03/01/2023 1:[address] 03/01/23 16:18 CT chest diagnostic wo con CT DOSE: 694.84 mGy.cm HISTORY: Follow-up right lower lobe density. TECHNIQUE: Multiaxial CT images of the chest were performed without contrast. A dose lowering technique was utilized adhering to the principles of ALARA. COMPARISON: Chest CTA 12/30/2021. FINDINGS: Lobular consolidation within the perihilar location of the right upper lobe has slightly increased in size. This measures approximately 4.8 x 3.9 cm, previously measuring 3.9 x 3.6 cm. This results in mild mass effect along the right upper lobe bronchi. This likely extends into the adjacent right middle lobe. The increase in size in the interval is highly suspicious for a primary bronchogenic malignancy. No pneumothorax. No pleural effusions. The lobular density within the right lung base seen on the prior chest x-ray appears to correspond to a small fat-containing right-sided [place] hernia. A few scattered linear scarlike densities seen within the lungs. Patchy airspace opacity within the base of the left lower lobe is new from the prior study. This favors a pneumonia. No evidence for pulmonary edema. No suspicious lytic are blastic osseous lesions. Mild anterior wedging within the mid thoracic spine vertebral body is likely chronic. Limited views of the upper abdomen demonstrate a normal liver and adrenal glands. There are few punctate calcified granulomas within the spleen. Prior cholecystectomy. The heart is mildly enlarged. No pericardial effusion. Normal caliber esophagus. Severe coronary artery calcifications are noted. 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 Probable right hilar lymphadenopathy. This is obscured by the right perihilar consolidation. There is right paratracheal, AP window, subcarinal adenopathy. A dominant subcarinal lymph node measures 3.9 cm. A dominant right paratracheal lymph node measures 3.2 cm. This is also progressed in the interval. Trace pneumobilia is noted within the left hepatic lobe. IMPRESSION: 1. Interval increase in size in the right perihilar/upper lobe lobular consolidation with mild mass effect along the adjacent right upper lobe bronchi. This is highly suspicious for a primary bronchogenic malignancy. Follow-up pulmonary consultation with bronchoscopy recommended for tissue diagnosis. 2. Interval progression of the mediastinal and right hilar lymphadenopathy which is highly suspicious for metastatic disease. 3. Patchy airspace opacities within the left lower lobe likely representing a pneumonia. This could be due to prior aspiration. 4. 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 ACT 112: Positive. There are findings on this exam that require communication between the performing entity and the patient following Patient Test Result Information Act ([place] Act 112) guidelines. Electronically signed by: Gildardo Alves M.D. 03/01/2023 4:49 PM (1) Pneumonia Laterality: bilateral Lung location: unspecified part of lung Pneumonia type: due to unspecified organism Qualified Code(s): J18.9 - Pneumonia, unspecified organism
[2023-03-02 15:11] LABS: Appearance Urine Clear (Clear); Bacteria Urine Automated Negative (Negative); Bilirubin Urine Negative (Negative); Blood Urine Negative (Negative); Color Urine Yellow; Epithelial Cell Urine Auto 20-30 /lpf (0-5); Glucose Urine UA Negative (Negative); Ketones Urine Negative (Negative); Leukocyte Esterase Urine Negative (Negative); Nitrite Urine Negative (Negative); Protein Urine 1+ (Negative); RBC Urine Automated 0-4 /hpf (0-4); Specific Gravity Urine 1.022 (1.000-1.030); Urobilinogen Urine Negative (Negative)
[2023-03-02] MEDS: AZITHROMYCIN 500 MG in DEXTROSE 5% 250 ML IV SCH (16:26)
[2023-03-02] MEDS: MELATONIN 3 MG TAB PO PRN (21:22)
[2023-03-03] MEDS: AMPICILLIN/SULBACTAM SOD 3,000 MG in SODIUM CHLOR 0.9% MINI-B 100 ML IV SCH ×4 (01:29→18:31)
[2023-03-03] MEDS: HEPARIN SOD 5,000 UNIT/0.5 ML VIAL SQ SCH ×3 (05:14→21:22)
[2023-03-03] MEDS: SODIUM CHLORIDE 1 GM TABLET PO SCH (08:17)
[2023-03-03] MEDS: ATORVASTATIN 40 MG TAB PO SCH (08:17)
[2023-03-03] MEDS: PANTOprazole 40 MG TAB PO SCH (08:17)
[2023-03-03] MEDS: METOPROLOL SUCC 25MG EXT REL TAB PO SCH (08:20)
--- NOTE | 2023-03-03 14:38 | Hospitalist Progress Note ---
Date of Service March 03, 2023 Assessment & Plan (1) Pneumonia: Plan: Patient presenting from home with reports of generalized weakness, falls, cough. Patient x-ray on admission personally reviewed; interval development of right lower lobe/infrahilar lobular density. This could represent atelectasis, pneumonia, or pulmonary lesion. Bio fire negative Procalcitonin <0.05 CT chest obtained to further evaluate right lower lobe density 1. Interval increase in size in the right perihilar/upper lobe lobular consolidation with mild mass effect along the adjacent right upper lobe bronchi. This is highly suspicious for a primary bronchogenic malignancy. Follow-up pulmonary consultation with bronchoscopy recommended for tissue diagnosis. 2. Interval progression of the mediastinal and right hilar lymphadenopathy which is highly suspicious for metastatic disease. 3. Patchy airspace opacities within the left lower lobe likely representing a pneumonia. This could be due to prior aspiration. Continue on Unasyn for possible aspiration pneumonia WELL REACTIVATOR OPERATOR carol completed; no aspiration at bedside evaluation. Pulmonology on board; ideally would pursue bronchoscopy with biopsy but patient is on Plavix which needs to be on hold. Recommend outpatient PET scan and bronchoscopy. Discussed with daughter over the phone on March 02, 2023. The patient was found to have suspicious right upper lobar consolidation in December of last ye ar. Patient had follow-up with pulmonology; was offered bronchoscopy. He was followed with serial CT chest as outpatient. Teressa will discuss the next steps with his brother; and then will follow-up with pulmonology clinic. She is unsure she would like to pursue the diagnosis and treatment of the cancer at the moment. Plavix is kept on hold in case family wants to pursue bronchoscopy. (2) Weakness: Plan: Secondary to acute illness PT OT carol recommends rehab. manager competitive intelligence on board. (3) Coronary artery disease: Plan: Appears stable, no reports of chest pain Continue Plavix, statin, beta-adonis (4) Cerebrovascular disease: Plan: Continue Plavix and statin (5) Chronic hyponatremia: Plan: Na+ 134 Continue salt tabs (6) Low grade B-cell lymphoma: Plan: Remote history of radiation treatment Follows with Dr. Mayer Currently under observation, patient declining additional treatment (7) Thoracic aortic aneurysm: Plan: CT chest 12/2021 - ascending thoracic aorta which measures up to 4.5 cm (8) GERD (gastroesophageal reflux disease): Plan: Continue PPI DVT PROPHYLAXIS SQ heparin DispoPT OT recommends rehab; referral [facility]. Possible DC in next few days. Please note the above document was generated using voice recognition software. It may contain grammatical, syntax or spelling errors. Any formal questions or concerns about the content, text or information contained within the body of this dictation should be directly addressed to the provider for clarification Admission and Anticipated Discharge Date Admission Date: March 01, 2023 Subjective Patient seen and examined at bedside. He is sitting up on the chair; not in any distress. He denies any increasing shortness of breath. Review of Systems Review of Systems: All systems reviewed & are unremarkable except as noted in Subjective Physical Exam Physical Exam: GENERAL:Awakeable; oriented to self. needs frequent redirection. Hard of hearing. HEENT: No pallor, no icterus. Left eye blindness. Right pupil reactive to light. Oral mucosa moist. NECK: No JVD, no neck masses. HEART: S1 and S2 heard. Regular rate and rhythm. No murmur, no gallop. RESPIRATORY SYSTEM: Decreased breath sound on right upper lung field. Clear breath sounds otherwise. ABDOMEN: Soft, bowel sounds present, nontender, no distention. CENTRAL NERVOUS SYSTEM: No facial droop. Moves extremities. EXTREMITIES: No edema, no erythema seen. Results & Data Results & Data Vital Signs (Past 12 Hours) Vital Signs Temp Pulse Resp BP Pulse Ox Pulse Ox O2 Del Method 03/03/23 11:40 94 03/03/23 11:29 142/91 H 03/03/23 07:51 36.5 C 63 16 161/95 H 98 Room Air 03/03/23 07:20 Room Air Laboratory Results Laboratory Results WBC 12.04 K/ul (4.8-10.8) H 03/02/23 04:25 RBC 3.08 M/uL (4.70-6.10) L 03/02/23 04:25 Hgb 9.3 g/dl (14.0-18.0) L 03/02/23 04:25 Hct 26.3 % (42.0-52.0) L 03/02/23 04:25 MCV 85.4 fL (80.0-100.0) 03/02/23 04:25 MCH 30.2 pg (25.0-34.0) 03/02/23 04:25 MCHC 35.4 g/dL (32.0-36.0) 03/02/23 04:25 RDW Std Deviation 41.4 fL (36.4-46.3) 03/02/23 04:25 RDW Coeff of Roderick 13.2 % (11.5-14.5) 03/02/23 04:25 Plt Count 184 K/uL (130-400) 03/02/23 04:25 MPV 10.5 fL (9.4-12.4) 03/02/23 04:25 Immature Gran % (Auto) 0.4 % 03/01/23 12:57 Neut % (Auto) 83.0 % 03/01/23 12:57 Lymph % (Auto) 5.3 % 03/01/23 12:57 Kane % (Auto) 11.2 % 03/01/23 12:57 Eos % (Auto) 0.0 % 03/01/23 12:57 Baso % (Auto) 0.1 % 03/01/23 12:57 Neut # (Auto) 11.31 K/uL (1.40-6.50) H 03/01/23 12:57 Lymph # (Auto) 0.72 K/uL (1.20-3.40) L 03/01/23 12:57 Kane # (Auto) 1.53 K/uL (0.11-0.59) H 03/01/23 12:57 Eos # (Auto) 0.00 K/uL (0.00-0.50) 03/01/23 12:57 Baso # (Auto) 0.02 K/uL (0.00-0.20) 03/01/23 12:57 Immature Gran # (Auto) 0.06 K/uL (0.01-0.20) 03/01/23 12:57 PT 11.6 Seconds (9.0-12.0) 03/01/23 12:57 INR 1.1 (0.9-1.1) 03/01/23 12:57 APTT 29.3 Seconds (21.0-31.0) 03/01/23 12:57 PTT Ratio 1.0 03/01/23 12:57 Sodium 133 mmol/L (136-145) L 03/02/23 04:25 Potassium 4.1 mmol/L (3.5-5.1) 03/02/23 04:25 Chloride 104 mmol/L (98-107) 03/02/23 04:25 Carbon Dioxide 23 mmol/L (21-32) 03/02/23 04:25 Anion Gap 6 (3-11) 03/02/23 04:25 BUN 18 mg/dl (6-23) 03/02/23 04:25 Creatinine 1.16 mg/dl (0.6-1.4) 03/02/23 04:25 Est Cr Clr Drug Dosing 47.2 ml/min 03/02/23 04:25 Est GFR ( Amer) 65.7 ml/min 03/02/23 04:25 Est GFR (Non-Af Amer) 56.7 ml/min 03/02/23 04:25 BUN/Creatinine Ratio 15.5 (10-20) 03/02/23 04:25 Glucose 115 mg/dl (70-99(Fasting)) H 03/02/23 04:25 Calcium 8.7 mg/dl (8.6-10.3) 03/02/23 04:25 Total Bilirubin 1.3 mg/dl (0.2-1.0) H 03/01/23 12:57 AST 18 U/L (13-39) 03/01/23 12:57 ALT 13 U/L (7-52) 03/01/23 12:57 Alkaline Phosphatase 67 U/L (34-104) 03/01/23 12:57 Troponin I High Sens 7.9 pg/ml (0-20) 03/01/23 12:57 Total Protein 7.0 gm/dl (6.0-8.3) 03/01/23 12:57 Albumin 4.0 gm/dl (3.4-5.0) 03/01/23 12:57 Globulin 3.0 gm/dl (2.5-4.0) 03/01/23 12:57 Albumin/Globulin Ratio 1.3 (0.9-2) 03/01/23 12:57 Procalcitonin < 0.05 ng/ml (0-0.5) 03/01/23 12:59 TSH 1.469 uIu/ml (0.300-4.500) 03/02/23 04:25 Urine Color Yellow 03/02/23 13:50 Urine Appearance Clear (Clear) 03/02/23 13:50 Urine pH 6.0 (4.5-7.5) 03/02/23 13:50 Ur Specific Many 1.022 (1.000-1.030) 03/02/23 13:50 Urine Protein 1+ (Negative) H 03/02/23 13:50 Urine Glucose (UA) Negative (Negative) 03/02/23 13:50 Urine Ketones Negative (Negative) 03/02/23 13:50 Urine Blood Negative (Negative) 03/02/23 13:50 Urine Nitrite Negative (Negative) 03/02/23 13:50 Urine Bilirubin Negative (Negative) 03/02/23 13:50 Urine Urobilinogen Negative (Negative) 03/02/23 13:50 Ur Leukocyte Esterase Negative (Negative) 03/02/23 13:50 Urine WBC (Auto) 1-5 /hpf (0-5) 03/02/23 13:50 Urine RBC (Auto) 0-4 /hpf (0-4) 03/02/23 13:50 U Hyaline Cast (Auto) 1-5 /lpf (0-5) 03/02/23 13:50 U Epithel Cells (Auto) 20-30 /lpf (0-5) H 03/02/23 13:50 Urine Bacteria (Auto) Negative (Negative) 03/02/23 13:50 Adenovirus (PCR) Not Detected (NotDetected) 03/01/23 15:48 B. pertussis DNA (PCR) Not Detected (NotDetected) 03/01/23 15:48 B.parapertussis DNA PCR Not Detected (NotDetected) 03/01/23 15:48 C. pneumoniae DNA (PCR) Not Detected (NotDetected) 03/01/23 15:48 Coronavirus OC43 (PCR) Not Detected (NotDetected) 03/01/23 15:48 Coronavirus HKU1 (PCR) Not Detected (NotDetected) 03/01/23 15:48 Coronavirus 229E (PCR) Not Detected (NotDetected) 03/01/23 15:48 SARS-CoV-2 (PCR) Not Detected (NotDetected) 03/01/23 15:48 Coronavirus NL63 (PCR) Not Detected (NotDetected) 03/01/23 15:48 Human Metapneumovir PCR Not Detected (NotDetected) 03/01/23 15:48 Influenza Type A (PCR) Not Detected (NotDetected) 03/01/23 15:48 Influenza Type B (PCR) Not Detected (NotDetected) 03/01/23 15:48 M. pneumoniae (PCR) Not Detected (NotDetected) 03/01/23 15:48 Parainfluenza 1 (PCR) Not Detected (NotDetected) 03/01/23 15:48 Parainfluenza 2 (PCR) Not Detected (NotDetected) 03/01/23 15:48 Parainfluenza 3 (PCR) Not Detected (NotDetected) 03/01/23 15:48 Parainfluenza 4 (PCR) Not Detected (NotDetected) 03/01/23 15:48 RSV (PCR) Not Detected (NotDetected) 03/01/23 15:48 Entero/Rhino (PCR) Not Detected (NotDetected) 03/01/23 15:48 Impressions Chest X-Ray 03/01/23 12:52 XR chest 1V not portable HISTORY: Chest pain, nonspecific COMPARISON: Chest 12/30/2021. FINDINGS: No pneumothorax. There are low lung volumes. The cardiac silhouette remains mildly enlarged. Interstitial thickening at the lung bases persists. This is likely chronic. No evidence for pulmonary edema. A 2.9 cm right perihilar nodular density persists. A right lower lobe/infrahilar lobular d ensity has progressed. IMPRESSION: 1. Interval development of right lower lobe/infrahilar lobular density. This could represent atelectasis, pneumonia, or pulmonary lesion. 2. No change in the 2.9 cm right perihilar lobular density. Follow-up nonemergent chest CT is recommended to assess for a pulmonary lesion. ACT 112: Negative or not required by law. Electronically signed by: Gildardo Alves M.D. 03/01/2023 3:[address] 03/01/23 12:[address] DOSE: 663.26 mGy.cm HISTORY: Confusion. Fall. TECHNIQUE: Multiaxial CT images of the head were performed without the use of intravenous contrast. Automated exposure control was utilized for this study. A dose lowering technique was utilized adhering to the principles of ALARA. Comparison: Head CT 12/30/2021. Findings: Partial opacification of the right ethmoid air cells. The mastoid air cells are clear. Prior bilateral lens replacement. The calvarium and skull base are intact. There is no mass, hematoma, midline shift, acute infarct. White matter hypodensity is nonspecific but suggestive of microvascular ischemic change. The ventricles and sulci demonstrate mild age-related involutional changes. 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 Bilateral basal ganglia calcifications again noted. Impression: No significant change compared to the prior study. No acute intracranial abnormality. ACT 112: Negative or not required by law. Electronically signed by: Gildardo Alves M.D. 03/01/2023 1:[address] 03/01/23 16:18 CT chest diagnostic wo con CT DOSE: 694.84 mGy.cm HISTORY: Follow-up right lower lobe density. TECHNIQUE: Multiaxial CT images of the chest were performed without contrast. A dose lowering technique was utilized adhering to the principles of ALARA. COMPARISON: Chest CTA 12/30/2021. FINDINGS: Lobular consolidation within the perihilar location of the right upper lobe has slightly increased in size. This measures approximately 4.8 x 3.9 cm, previously measuring 3.9 x 3.6 cm. This results in mild mass effect along the right upper lobe bronchi. This likely extends into the adjacent right middle lobe. The increase in size in the interval is highly suspicious for a primary bronchogenic malignancy. No pneumothorax. No pleural effusions. The lobular density within the right lung base seen on the prior chest x-ray appears to correspond to a small fat-containing right-sided [place] hernia. A few scattered linear scarlike densities seen within the lungs. Patchy airspace opac ity within the base of the left lower lobe is new from the prior study. This favors a pneumonia. No evidence for pulmonary edema. No suspicious lytic are blastic osseous lesions. Mild anterior wedging within the mid thoracic spine vertebral body is likely chronic. Limited views of the upper abdomen demonstrate a normal liver and adrenal glands. There are few punctate calcified granulomas within the spleen. Prior cholecystectomy. The heart is mildly enlarged. No pericardial effusion. Normal caliber esophagus. Severe coronary artery calcifications are noted. 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 Probable right hilar lymphadenopathy. This is obscured by the right perihilar consolidation. There is right paratracheal, AP window, subcarinal adenopathy. A dominant subcarinal lymph node measures 3.9 cm. A dominant right paratracheal lymph node measures 3.2 cm. This is also progressed in the interval. Trace pneumobilia is noted within the left hepatic lobe. IMPRESSION: 1. Interval increase in size in the right perihilar/upper lobe lobular consolidation with mild mass effect along the adjacent right upper lobe bronchi. This is highly suspicious for a primary bronchogenic malignancy. Follow-up pulmonary consultation with bronchoscopy recommended for tissue diagnosis. 2. Interval progression of the mediastinal and right hilar lymphadenopathy which is highly suspicious for metastatic disease. 3. Patchy airspace opacities within the left lower lobe likely representing a pneumonia. This could be due to prior aspiration. 4. 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 ACT 112: Positive. There are findings on this exam that require communication between the performing entity and the patient following Patient Test Result Information Act ([place] Act 112) guidelines. Electronically signed by: Gildardo Alves M.D. 03/01/2023 4:49 PM (1) Pneumonia Laterality: bilateral Lung location: unspecified part of lung Pneumonia type: due to unspecified organism Qualified Code(s): J18.9 - Pneumonia, unspecified organism
[2023-03-03] MEDS: AZITHROMYCIN 500 MG in DEXTROSE 5% 250 ML IV SCH (17:18)
[2023-03-03] MEDS ORDERED: Nursing to Pharmacy Communication SCH (18:30)
[2023-03-03] MEDS: MELATONIN 3 MG TAB PO PRN (21:23)
[2023-03-04] MEDS: AMPICILLIN/SULBACTAM SOD 3,000 MG in SODIUM CHLOR 0.9% MINI-B 100 ML IV SCH ×3 (00:33→11:35)
[2023-03-04] MEDS: HEPARIN SOD 5,000 UNIT/0.5 ML VIAL SQ SCH (05:46)
[2023-03-04] MEDS: METOPROLOL SUCC 25MG EXT REL TAB PO SCH (07:49)
[2023-03-04] MEDS: SODIUM CHLORIDE 1 GM TABLET PO SCH (07:50)
[2023-03-04] MEDS: ATORVASTATIN 40 MG TAB PO SCH (07:51)
[2023-03-04] MEDS: PANTOprazole 40 MG TAB PO SCH (07:51)
--- NOTE | 2023-03-04 11:02 | Discharge Summary ---
Date of Service March 04, 2023 Admission HPI Per Admitting Provider 87 year old male with PMH, CAD, CVA, dementia, hx of B-cell lymphoma s/p radiation, thoracic aortic aneurysm, CKD stage III, chronic hyponatremia, and other problems listed below who presents to the ED for evaluation of weakness, falls, and cough. Due to underlying dementia, history obtained from daughter and review of outpatient PCP and cardiology records. Over the past 2 weeks, patient has had worsening weakness. Daughter reports 2 falls. She reports that this morning she heard him yell for help from the bathroom. She found him on the floor leaning against the wall. No suspected head trauma of loss of consc iousness. Patient has had a non productive cough. No fever or chills. Appetite has been fair, no vomiting or diarrhea. In the ED, patient is hemodynamically stable. Labs show WBC 13K. CXR shows interval development of right lower lobe/infrahilar lobular density. This could represent atelectasis, pneumonia, or pulmonary lesion. Patient was given IVF, IV azithromycin, and IV ceftriaxone. Admission Exam Per Admitting Provider Vitals signs as noted above General Appearance:Moderately built and nourished, no apparent distress, chronically appearing, elderly Head: normocephalic, Atraumatic Eyes: normal inspection, + left eye blindness Neck: supple, Trachea midline Respiratory/Chest: Decreased breath sounds at bases, CTA, No accessory muscle use Cardiovascular: S1, S2, + murmur Abdomen/GI:Soft, Non tender, Bowel sounds present Extremities/Musculoskeletal:normal inspection, no edema Neurologic/Psych:AAO, grossly no focal neurological deficits, significant hearing impairment Skin: normal color, warm Principal Diagnosis Pneumonia Lung mass Discharge Exam GENERAL:Awakeable; oriented to self. needs frequent redirection. Hard of hearing. HEENT: No pallor, no icterus. Left eye blindness. Right pupil reactive to light. Oral mucosa moist. NECK: No JVD, no neck masses. HEART: S1 and S2 heard. Regular rate and rhythm. No murmur, no gallop. RESPIRATORY SYSTEM: Decreased breath sound on right upper lung field. Clear breath sounds otherwise. ABDOMEN: Soft, bowel sounds present, nontender, no distention. CENTRAL NERVOUS SYSTEM: No facial droop. Moves extremities. EXTREMITIES: No edema, no erythema seen. Discharge Data Allergies Allergy/AdvReac Type Severity Reaction Status Date / Time No Known Allergies Allergy Unknown Verified 03/01/23 15:00 Consultations 03/01/23 14:45 ED Decision to Admit Stat 03/01/23 17:12 Consult Pulmonology Routine Ordered Studies 03/01/23 12:55 CT head/brain wo con Stat 03/01/23 16:18 CT chest diagnostic wo con Routine Hospital Course (1) Pneumonia: (2) Weakness: (3) Coronary artery disease: (4) Cerebrovascular disease: (5) Chronic hyponatremia: (6) Low grade B-cell lymphoma: (7) Thoracic aortic aneurysm: (8) GERD (gastroesophageal reflux disease): Plan Patient presented from home with reports of generalized weakness, falls, cough. Patient x-ray on admission personally reviewed; interval development of right lower lobe/infrahilar lobular density. Bio fire negative Procalcitonin <0.05 CT chest was obtained which showed increase in the size of the right perihilar/upper lobe lesion concerning for cancer. Patient was found to have suspicious right upper lobe consolidation in December of last year as well. He was to follow-up as outpatient with serial CT scan with pulmonology. Inpatient pulmonology was consulted for comanagement. Outpatient PET scan and bronchoscopy with endobronchial ultrasound and transbronchial needle aspiration was recommended by pulmonology. Discussion was done with patient's daughter Teressa over the phone. She had a discussion with her brother; they would like to pursue workup. Patient was accepted to inpatient rehab. After discussion with patient's daughter; decision was made that she will follow-up with patient oncologist (Dr. Mayer) and pulmonology as outpatient to further evaluate and diagnose the right upper lung lesion. COFOUNDER evaluation was done; patient did not have aspiration at bedside evaluation. Patient was discharged to rehab with instructions to follow-up with oncology and pulmonology as outpatient. Please note the above document was generated using voice recognition software. It may contain grammatical, syntax or spelling errors. Any formal questions or concerns about the content, text or information contained within the body of this dictation should be directly addressed to the provider for clarification Total Time Total Time Spent Total Time Spent (In Minutes): 45 Total Time Includes: Examination of the Patient, Discharge Planning, Medication Reconciliation, Communication With Other Providers and Other Discharge Plan Discharge Items Patient Disposition: Transfer Inpatient Rehab Fac Reason For Visit: PNEUMONIA Discharge Diagnosis: Pneumonia Lung mass Activity: Resume your previous activity Non-emergency contact: Primary Care Provider Call non-emergency contact if: you have any medication questions and your symptoms worsen Follow-up/Referrals: Joaquin Ramirez DO [Primary Care Provider] - Diet: Regular Addtl Attending Provider Instructions: You were admitted to the hospital due to pneumonia. You are treated with antibiotics during the hospitalization. You are prescribed 5 more days of antibiotic to complete the treatment. After the rehab, you need to follow-up with oncology and lung doctor to pursue evaluation of the lung mass seen in the CAT scan. You also need to follow-up with the primary care doctor after discharge. Pending Studies at Discharge: No Stand-Alone Forms: My [facility] Skilled Items Patient informed of condition?: Yes DNR: Yes Discharge Level of Care: Acute rehab Communicable Disease: No Discharge Prognosis: Stable Lines: None Urinary Catheter: No Medications and DC Order Prescriptions: New amoxicillin-pot clavulanate 875-125 mg tablet 1 tab PO BID 5 Days Qty: 10 0RF Continued nitroglycerin [Nitrostat] 0.4 mg Tablet, Sublingual 0.4 mg Sublingual DIRECTED PRN (Reason: Chest Pain) multivitamin Tablet 1 tab PO DAILY Qty: 30 0RF atorvastatin 80 mg Tablet 80 mg PO QAM Qty: 30 0RF clopidogrel 75 mg tablet 75 mg PO DAILY Qty: 30 0RF pantoprazole 40 mg tablet,delayed release (DR/EC) 40 mg PO DAILY Qty: 30 0RF metoprolol succinate [Toprol XL] 25 mg Tablet Extended Release 24 Hr 12.5 mg PO DAILY Qty: 30 0RF famotidine 20 mg tablet 20 mg PO DAILY PRN (Reason: Heartburn) sodium chloride 1,000 mg Tablet,Soluble 1,000 mg PO DAILY Discharge Orders: Discharge Order (Routine); Ordered 03/04/23 Ordered By: Janes Webster Admission Data Admit Date/Time: 03/01/23 15:02 Attending Provider: Janes Webster Admit Provider: Claudy Yin Primary Care Provider: Joaquin Ramirez Other Providers: Kevin Hein; Claudy Yin; [facility]
== END 2023-03-04 14:13 | DRG 194 ==
LOC: ED 12:37 → SUATTDRO 15:02 → EDINP 15:02 → 3N 17:42

== ENCOUNTER 2023-05-31 14:05 | Inpatient (IN) ==
--- NOTE | 2023-05-31 15:48 | CT Scan Report ---
HEAD CT NONCONTRAST CT DOSE: 703.85 mGy.cm HISTORY: dizziness, gen weakness TECHNIQUE: Multiaxial CT images of the head were performed without the use of intravenous contrast. A utomated exposure control was utilized for this study. A dose lowering technique was utilized adheri ng to the principles of ALARA. Comparison: Head CT 03/01/2023. Findings: The paranasal sinuses and mastoid air cells are clear. The calvarium and skull base are int act. There is no mass, hematoma, midline shift, acute infarct. White matter hypodensity is nonspecifi c but suggestive of microvascular ischemic change. The ventricles and sulci demonstrate mild age-rela ev involutional changes. Old small right cerebral infarcts again noted. Impression: No significant change compared to the prior study. No acute intracranial abnormality. ACT 112: Negative or not required by law. Electronically signed by: Gildardo Alves M.D. 05/31/2023 3:47 PM
--- NOTE | 2023-05-31 16:04 | XRay Report ---
XR chest 1V not portable HISTORY: Weakness COMPARISON: Chest 03/01/2023. FINDINGS: No pneumothorax. No pleural effusions. There are low lung volumes. Prior cholecystectomy. M ild chronic interstitial thickening persists. Left basilar linear densities favor subsegmental atelec tasis. No evidence for pulmonary edema. The heart remains enlarged. Increase in size in the right per ihilar masslike opacity which measures 5.3 cm. Calcifications within the aortic knob. No acute fractu res. Right hilar fullness may represent lymphadenopathy. IMPRESSION: 1. Increase in size in the right perihilar masslike opacity. This is highly suspicious for a primary bronchogenic malignancy. 2. Otherwise, no focal lung consolidations to suggest a pneumonia. 3. Stable cardiomegaly. 4. Right hilar fullness may represent lymphadenopathy. ACT 112: Negative or not required by law. Electronically signed by: Gildardo Alves M.D. 05/31/2023 4:02 PM
[2023-05-31 16:38] LABS: Basophils # (auto) 0.03 K/uL (0.00-0.20); Basophils % (auto) 0.3 %; Eosinophils # (auto) 0.15 K/uL (0.00-0.50); Eosinophils % (auto) 1.7 %; Hematocrit (blood only) 35.6 % (42.0-52.0); Hemoglobin 12.1 g/dl (14.0-18.0); Immature Granulocytes # (auto) 0.04 K/uL (0.01-0.20); Immature Granulocytes % (auto) 0.4 %; Lymphocytes # (auto) 0.93 K/uL (1.20-3.40); Lymphocytes % (auto) 10.5 %; Mean Corpuscular Volume 88.1 fL (80.0-100.0); Mean Platelet Volume 10.3 fL (9.4-12.4); Monocytes # (auto) 1.01 K/uL (0.11-0.59); Monocytes % (auto) 11.4 %; Neutrophils # (auto) 6.73 K/uL (1.40-6.50); Neutrophils % (auto) 75.7 %; Platelet Count 278 K/uL (130-400); RDW Coefficient of Variation 14.3 % (11.5-14.5); RDW Standard Deviation 46.3 fL (36.4-46.3); Red Blood Count 4.04 M/uL (4.70-6.10); White Blood Count 8.89 K/ul (4.8-10.8)
[2023-05-31 16:56] LABS: Albumin Globulin Ratio 1.5 (0.9-2); Albumin Level 4.6 gm/dl (3.4-5.0); BUN Creatinine Ratio 21.5 (10-20); Bilirubin,Total 1.1 mg/dl (0.2-1.0); Est GFR (African American) 62.5 ml/min; Est GFR (Non-African American) 53.9 ml/min; Magnesium 2.1 mg/dl (1.7-2.4); Potassium 4.3 mmol/L (3.5-5.1); Total Protein 7.6 gm/dl (6.0-8.3)
--- NOTE | 2023-05-31 16:58 | Electrocardiogram Report ---
Test Reason : Blood Pressure : / mmHG Vent. Rate : 070 BPM Atrial Rate : 070 BPM P-R Int : 240 ms QRS Dur : 102 ms QT Int : 388 ms P-R-T Axes : 058 -41 051 degrees QTc Int : 419 ms Sinus rhythm with marked sinus arrhythmia with 1st degree A-V block Left axis deviation Moderate voltage criteria for LVH, may be normal variant Abnormal ECG When compared with ECG of 01-MAR-2023 12:56, Premature atrial complexes are no longer Present Confirmed by Elian Tellez ([id number]) on 05/31/2023 4:58:06 PM Referred By: Confirmed By:Juan Tellez
[2023-05-31 17:01] LABS: Troponin I High Sensitivity 5.1 pg/ml (0-20)
[2023-05-31 17:04] LABS: Partial Thromboplastin Time 27 Seconds (21-31); Prothrombin Time 10.6 Seconds (9.0-12.0)
[2023-05-31 17:06] LABS: Base Excess VBG 2.2 mEq/L; HCO3 VBG 28 mmol/L; Oxygen Saturation VBG < 60.0 %; PCO2 VBG 46 mmHg (38-50); PO2 VBG 25 mmHg; pH VBG 7.39 (7.36-7.41)
[2023-05-31 17:08] LABS: Thyroid Stimulating Hormone 5.218 uIu/ml (0.300-4.500)
[2023-05-31] MEDS: OPTIRAY 320 125ml IV ONE (18:58)
--- NOTE | 2023-05-31 19:49 | CT Scan Report ---
Exam(s): CTA HEAD With Contrast IV Amt: 116ml EXAM: CT Angiography Head With Intravenous Contrast CLINICAL HISTORY: Reason for exam: dizziness. TECHNIQUE: Axial computed tomographic angiography images of the head with intravenous contrast. CTDI is 34 mGy and DLP is 480.03 mGy-cm. Automated exposure control was utilized for the study. A dose lowering technique was utilized adhering to the principles of ALARA. MIP reconstructed images were created and reviewed. CONTRAST: Patient received 116ml of IV contrast COMPARISON: No relevant prior studies available. FINDINGS: Right internal carotid artery: No acute findings. Intracranial segment is patent with no significant stenosis. No aneurysm. Right anterior cerebral artery: Unremarkable. No occlusion or significant stenosis. No aneurysm. Right middle cerebral artery: Unremarkable. No occlusion or significant stenosis. No aneurysm. Right posterior cerebral artery: Unremarkable. No occlusion or significant stenosis. No aneurysm. Right vertebral artery: Unremarkable as visualized. Left internal carotid artery: No acute findings. Intracranial segment is patent with no significant stenosis. No aneurysm. Left anterior cerebral artery: Unremarkable. No occlusion or significant stenosis. No aneurysm. Left middle cerebral artery: Unremarkable. No occlusion or significant stenosis. No aneurysm. Left posterior cerebral artery: Unremarkable. No occlusion or significant stenosis. No aneurysm. Left vertebral artery: Unremarkable as visualized. Basilar artery: Unremarkable. No occlusion or significant stenosis. No aneurysm. IMPRESSION: Normal head CTA. Electronically signed by: Sang Rodriguez MD 05/31/23 19:48 PM
--- NOTE | 2023-05-31 19:57 | CT Scan Report ---
Exam(s): CTA NECK With Contrast IV Amt: 116ml EXAM: CT Angiography Neck With Intravenous Contrast CLINICAL HISTORY: Reason for exam: dizziness. TECHNIQUE: Routine carotid CT angiography protocol was performed with intravenous contrast. NASCET criteria using the distal ICAs for comparison were used for evaluation of stenoses. CTDI is 34 mGy and DLP is 480.03 mGy-cm. Automated exposure control was utilized for the study. A dose lowering technique was utilized adhering to the principles of ALARA. 3D and MIP reconstructed images were created and reviewed. CONTRAST: Patient received 116ml of IV contrast COMPARISON: None. FINDINGS: VASCULATURE: Right common carotid artery: Unremarkable. No occlusion or significant stenosis. No dissection. Right internal carotid artery: Dense atherosclerotic plaque extending into the proximal right ICA resulting in 70% stenosis in the proximal ICA. No dissection. Right external carotid artery: Unremarkable. No occlusion. Right vertebral artery: Unremarkable. No occlusion or significant stenosis. No dissection. Left common carotid artery: Mild calcific change of the left common carotid artery. No occlusion or significant stenosis. No dissection. Left internal carotid artery: Unremarkable. Extracranial segment is patent with no occlusion or significant stenosis. No dissection. Left external carotid artery: Unremarkable. No occlusion. Left vertebral artery: Unremarkable. No occlusion or significant stenosis. No dissection. NECK: Bones/joints: Unremarkable. No acute fracture. Soft tissues: Unremarkable. Lymph nodes: Innumerable upper thoracic lymph nodes. Lung apices: Clear. CAROTID STENOSIS REFERENCE USING NASCET CRITERIA: % ICA stenosis = (1 - narrowest ICA diameter/diameter of distal cervical ICA) x 100. Mild - <50% stenosis. Moderate - 50-69% stenosis. Severe - 70-94% stenosis. Near occlusion - 95-99% stenosis. Occluded - 100% stenosis. IMPRESSION: 1. 70% stenosis involving the proximal right ICA. 2. Innumerable upper thoracic lymph nodes. Incompletely evaluated on this exam. Electronically signed by: Sang Rodriguez MD 05/31/23 19:56 PM
--- NOTE | 2023-05-31 21:37 | History & Physical Report ---
Date of Service May 31, 2023 Assessment & Plan (1) Paresthesia: (2) Stroke-like symptoms: (3) Mediastinal adenopathy: (4) Carotid artery disease: (5) Chronic hyponatremia: (6) Hypertension: (7) Dyslipidemia: (8) Coronary artery disease: (9) Low grade B-cell lymphoma: (10) CKD (chronic kidney disease), stage III: Plan: Assessment and plan per Dr London. See addendum History of Present Illness Chief Complaint: numbness of left hand and weakness Primary Care Provider: COURTNEY PCP Patient is 87-year-old male with PMH HTN, dyslipidemia, CAD s/p PCI LAD in 2000, CKD III, history of CVA, chronic hyponatremia, B-cell lymphoma, thoracic aortic aneurysm, GERD, dementia, and others listed below presented to ER with complaint of left hand and weakness. Limited history obtained from patient secondary to cognitive status. History obtained from patient's daughter and outpatient inpatient chart review. Currently patient knows he is in medical facility and does not know his daughter (states that she is his ). Patient daughter states that this is his baseline mental status. She has not noticed significant worsening. Daughter states last night patient complained of left hand feeling numb and she noticed that it seemed more contracted and he was having difficulty using it. She states this lasted approximately an hour and then later patient was no longer complaining of numbness and seem to be using his hand without difficulty. She states late at night he was complaining of feeling dizzy. Daughter reports patient did not sleep last night and was more restless than usual. She tried giving him melatonin without improvement last night. States patient has progressively been having more sleep issues. She reports this morning patient walked down steps. He did not want to eat breakfast which was unusual for patient. Daughter reports patient seemed to be out of breath this morning when he was trying to put on his pants. She states then he was complaining that his legs felt weak and he felt like he had difficulty walking. Patient walks with walker at baseline. Denies any falls. Daughter states has noticed some progressive mumbling of words at times over the past months, does not feel that has had any worsening speech changes over the past several days. Denies any noted facial drooping. Has not noticed any vomiting or diarrhea, fever or chills, cough or other episodes of shortness of breath, rashes. Currently patient denying any complaint. He denies headache, chest pain, dizziness, vision changes, abdominal pain, paresthesias, urinary symptoms. Allergies Allergy/AdvReac Type Severity Reaction Status Date / Time No Known Allergies Allergy Unknown Verified 05/31/23 17:30 Home Medications Medication Instructions Recorded Confirmed Type nitroglycerin 0.4 mg sublingual 0.4 mg sublingual DIRECTED PRN 06/09/18 05/31/23 History tablet (Nitrostat) Chest Pain atorvastatin 80 mg tablet 80 mg PO QAM #30 tabs 02/07/21 05/31/23 Rx clopidogrel 75 mg tablet 75 mg PO DAILY #30 tabs 02/07/21 05/31/23 Rx metoprolol succinate 25 mg 12.5 mg (1/2 x 25 mg) PO DAILY #30 02/07/21 05/31/23 Rx tablet,extended release 24 hr tabs (Toprol XL) multivitamin 1 tab PO DAILY #30 tabs 02/07/21 05/31/23 Rx pantoprazole 40 mg tablet,delayed 40 mg PO DAILY #30 tabs 02/07/21 05/31/23 Rx release famotidine 20 mg tablet 20 mg PO DAILY PRN Heartburn 03/01/23 05/31/23 History sodium chloride 1,000 mg soluble 1,000 mg PO DAILY 03/01/23 05/31/23 History tablet Past Med/Surg History Medical History (Updated 05/31/23 @ 22:20 by Claudia Meyer PA-C) CKD (chronic kidney disease), stage III Chronic hyponatremia History of COVID-19 Cerebrovascular disease TIA RUE weakness 02/23/20 GERD (gastroesophageal reflux disease) Do not resuscitate status Per pt's advance directives. 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 Brunner Status post coronary artery stent placement Family History Mother Heart disease Father Myocardial infarction Sister Cancer ? 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 Pnp Required: No Beliefs That Will Affect Care: None marital status: / Current Living Situation: Family Current Living Situation Comment: Help from daughter current occupational status: retired How many Children do You have: 2 Feels Safe at Home: Yes Assistive Devices: Walker Review of Systems Review of Systems: All systems reviewed & are unremarkable except as noted in HPI & below Physical Exam Physical Exam: General: no acute distress, WDWN Head: normocephalic, atraumatic Eyes: +left eye with scarring (chronic left eye blindness), Right eye PERRL, EOM's appear intact, conjunctiva non-injected, anicteric ENT: normal inspection external ears, nose, mucous membranes moist Neck: supple, trachea midline Lungs: clear, no respiratory distress, no wheezing/rhonchi/rales CV: RRR, + murmur, no pretibial edema Abd: normal BS, soft, non-tender Ext: no cyanosis, no calf tenderness Neuro: Alert, oriented to place (knows medical facility), oriented to self only (calls his daughter is ), normal affect, facial sensation is intact and symmetric, face is strong and symmetric, hearing grossly intact, soft palate elevates symmetrically, +intermittent mumbling of words (daughter states this is baseline), shoulder shrug intact, tongue is midline, normal movement, no fasciculations. 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3 Chloride 102 Carbon Dioxide 26 BUN 26 H Creatinine 1.21 Glucose 113 H Calcium 10.0 Liver Function 05/31/23 Range/Units 16:12 Total Bilirubin 1.1 H (0.2-1.0) mg/dl AST 23 (13-39) U/L ALT 16 (7-52) U/L Alkaline Phosphatase 91 (34-104) U/L Albumin 4.6 (3.4-5.0) gm/dl Diagnostic Findings Chest X-Ray 05/31/23 14:32 XR chest 1V not portable HISTORY: Weakness COMPARISON: Chest 03/01/2023. FINDINGS: No pneumothorax. No pleural effusions. There are low lung volumes. Prior cholecystectomy. Mild chronic interstitial thickening persists. Left basilar linear densities favor subsegmental atelectasis. No evidence for pulmonary edema. The heart remains enlarged. Increase in size in the right gilles hilar masslike opacity which measures 5.3 cm. Calcifications within the aortic knob. No acute fractures. Right hilar fullness may represent lymphadenopathy. IMPRESSION: 1. Increase in size in the right perihilar masslike opacity. This is highly suspicious for a primary bronchogenic malignancy. 2. Otherwise, no focal lung consolidations to suggest a pneumonia. 3. Stable cardiomegaly. 4. Right hilar fullness may represent lymphadenopathy. ACT 112: Negative or not required by law. Electronically signed by: Gildardo Alves M.D. 05/31/2023 4:[address] 05/31/23 14:[address] DOSE: 703.85 mGy.cm HISTORY: dizziness, gen weakness TECHNIQUE: Multiaxial CT images of the head were performed without the use of intravenous contrast. Automated exposure control was utilized for this study. A dose lowering technique was utilized adhering to the principles of ALARA. Comparison: Head CT 03/01/2023. Findings: The paranasal sinuses and mastoid air cells are clear. The calvarium and skull base are intact. There is no mass, hematoma, midline shift, acute infarct. White matter hypodensity is nonspecific but suggestive of microvascular ischemic change. The ventricles and sulci demonstrate mild age-related involutional changes. Old small right cerebral infarcts again noted. Impression: No significant change compared to the prior study. No acute intracranial abnormality. ACT 112: Negative or not required by law. Electronically signed by: Gildardo Alves M.D. 05/31/2023 3:47 PM Head CTA 05/31/23 18:17 Exam(s): CTA HEAD With Contrast IV Amt: 116ml EXAM: CT Angiography Head With Intravenous Contrast CLINICAL HISTORY: Reason for exam: dizziness. TECHNIQUE: Axial computed tomographic angiography images of the head with intravenous contrast. CTDI is 34 mGy and DLP is 480.03 mGy-cm. Automated exposure control was utilized for the study. A dose lowering technique was utilized adhering to the principles of ALARA. MIP reconstructed images were created and reviewed. CONTRAST: Patient received 116ml of IV contrast COMPARISON: No relevant prior studies available. FINDINGS: Right internal carotid artery: No acute findings. Intracranial segment is patent with no significant stenosis. No aneurysm. Right anterior cerebral artery: Unremarkable. No occlusion or significant stenosis. No aneurysm. Right middle cerebral artery: Unremarkable. No occlusion or significant stenosis. No aneurysm. Right posterior cerebral artery: Unremarkable. No occlusion or significant stenosis. No aneurysm. Right vertebral artery: Unremarkable as visualized. Left internal carotid artery: No acute findings. Intracranial segment is patent with no significant stenosis. No aneurysm. Left anterior cerebral artery: Unremarkable. No occlusion or significant stenosis. No aneurysm. Left middle cerebral artery: Unremarkable. No occlusion or significant stenosis. No aneurysm. Left posterior cerebral artery: Unremarkable. No occlusion or significant stenosis. No aneurysm. Left vertebral artery: Unremarkable as visualized. Basilar artery: Unremarkable. No occlusion or significant stenosis. No aneurysm. IMPRESSION: Normal head CTA. Electronically signed by: Sang Rodriguez MD 05/31/23 19:48 PM Neck CTA 05/31/23 18:17 Exam(s): CTA NECK With Contrast IV Amt: 116ml EXAM: CT Angiography Neck With Intravenous Contrast CLINICAL HISTORY: Reason for exam: dizziness. TECHNIQUE: Routine carotid CT angiography protocol was performed with intravenous contrast. NASCET criteria using the distal ICAs for comparison were used for evaluation of stenoses. CTDI is 34 mGy and DLP is 480.03 mGy-cm. Automated exposure control was utilized for the study. A dose lowering technique was utilized adhering to the principles of ALARA. 3D and MIP reconstructed images were created and reviewed. CONTRAST: Patient received 116ml of IV contrast COMPARISON: None. FINDINGS: VASCULATURE: Right common carotid artery: Unremarkable. No occlusion or significant stenosis. No dissection. Right internal carotid artery: Dense atherosclerotic plaque extending into the proximal right ICA resulting in 70% stenosis in the proximal ICA. No dissection. Right external carotid artery: Unremarkable. No occlusion. Right vertebral artery: Unremarkable. No occlusion or significant stenosis. No dissection. Left common carotid artery: Mild calcific change of the left common carotid artery. No occlusion or significant stenosis. No dissection. Left internal carotid artery: Unremarkable. Extracranial segment is patent with no occlusion or significant stenosis. No dissection. Left external carotid artery: Unremarkable. No occlusion. Left vertebral artery: Unremarkable. No occlusion or significant stenosis. No dissection. NECK: Bones/joints: Unremarkable. No acute fracture. Soft tissues: Unremarkable. Lymph nodes: Innumerable upper thoracic lymph nodes. Lung apices: Clear. CAROTID STENOSIS REFERENCE USING NASCET CRITERIA: % ICA stenosis = (1 - narrowest ICA diameter/diameter of distal cervical ICA) x 100. Mild - <50% stenosis. Moderate - 50-69% stenosis. Severe - 70-94% stenosis. Near occlusion - 95-99% stenosis. Occluded - 100% stenosis. IMPRESSION: 1. 70% stenosis involving the proximal right ICA. 2. Innumerable upper thoracic lymph nodes. Incompletely evaluated on this exam. Electronically signed by: Sang Rodriguez MD 05/31/23 19:56 PM Supervising Physician Co-Signing Physician Notes IM ATTENDING : Patient seen and examined. History obtained from patient, family, and records. Limited history from patient secondary to dementia. Concur with salient points upon review of preceding documentation by Ms. Claudia Meyer PA-C. I take responsibility for plan of care below. FINAL ASSESSMENT AND PLAN as follows : Transient LUE weakness/numbness rule out TIA hx CVA as per records History CAD sp stenting, history PVD Valvular heart disease (mild MR/TR/AR/, TTE 2022) HTN, stable Hyperlipidemia on statin Rx history non-Hodgkin's lymphoma status post radiation (patient refused chemotherapy in the past as per records), patient currently seeing [facility] [place] oncologist given recent outpatient bronchoscopic biopsy findings of recurrent beta cell lymphoma Chronic hyponatremia on sodium tablets chronic anemia, hemoglobin at baseline Prediabetes, hemoglobin A1c of 4.9 2021 Dementia, baseline confusion as per daughter. past tobacco abuse OBS Medical telemetry Neurochecks Add aspirin to Plavix until new stroke ruled out by brain MRI Continue statin Additional stroke workup contingent on MRI results Update hemoglobin A1c, lipid profile Delirium precautions DVT prophylaxis. Lovenox DNR as per patient's prior directives as per daughter. Patient daughter requesting updates providers. Teressa Cait, contact #[phone]. Text document was generated using [employer] voice recognition software. It may contain grammatical or spelling errors. Kindly contact undersigned for clarification of any documentation item in question.
--- NOTE | 2023-05-31 21:51 | Emergency Department Note ---
History of Present Illness General Chief complaint: Dizziness Stated complaint: DIZZINESS/HANDS GOING NUMB Time Seen by Provider: 05/31/23 16:26 Source: patient and family History of Present Illness Provider complaint: Dizziness paresthesias Onset (ago): day(s) 2 87-year-old male presents emergency department with daughters for dizziness and paresthesias. Daughter reports that the patient was having difficulty walking feeling very dizzy. They report paresthesias to the bilateral upper extremities. They reports the patient has been more confused and tired. They report that has not been eating well. No falls or traumas. No nausea vomiting or diarrhea. No fever. Home Medications Medication Instructions Recorded Confirmed Type nitroglycerin 0.4 mg sublingual 0.4 mg sublingual DIRECTED PRN 06/09/18 05/31/23 History tablet (Nitrostat) Chest Pain atorvastatin 80 mg tablet 80 mg PO QAM #30 tabs 02/07/21 05/31/23 Rx clopidogrel 75 mg tablet 75 mg PO DAILY #30 tabs 02/07/21 05/31/23 Rx metoprolol succinate 25 mg 12.5 mg (1/2 x 25 mg) PO DAILY #30 02/07/21 05/31/23 Rx tablet,extended release 24 hr tabs (Toprol XL) multivitamin 1 tab PO DAILY #30 tabs 02/07/21 05/31/23 Rx pantoprazole 40 mg tablet,delayed 40 mg PO DAILY #30 tabs 02/07/21 05/31/23 Rx release famotidine 20 mg tablet 20 mg PO DAILY PRN Heartburn 03/01/23 05/31/23 History sodium chloride 1,000 mg soluble 1,000 mg PO DAILY 03/01/23 05/31/23 History tablet Allergies Allergy/AdvReac Type Severity Reaction Status Date / Time No Known Allergies Allergy Unknown Verified 05/31/23 17:30 Past Med/Surg History Medical History Chronic hyponatremia History of COVID-19 Cerebrovascular disease TIA RUE weakness 02/23/20 GERD (gastroesophageal reflux disease) Do not resuscitate status Per pt's advance directives. 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 Brunner Status post coronary artery stent placement Family History Mother Heart disease Father Myocardial infarction Sister Cancer ? 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 Frame Straightener Required: No Beliefs That Will Affect Care: None marital status: / Current Living Situation: Family Current Living Situation Comment: Help from daughter current occupational status: retired How many Children do You have: 2 Feels Safe at Home: Yes Assistive Devices: Walker Physical Exam Vital Signs Vital Signs - 24 hr 05/31/23 14:25 05/31/23 16:50 05/31/23 17:22 Temperature 36.4 C L Temperature Source Temporal Artery Scan Pulse Rate 75 59 L Pulse Rate [Right Finger] 55 L Respiratory Rate 18 16 Respiratory Effort / Characteristics Non-Labored Non-Labored Spontaneous Respiratory Depth Normal Normal Respiratory Pattern Regular Regular Blood Pressure 113/62 Blood Pressure [Left Arm] 136/90 Blood Pressure Mean 79 Blood Pressure Mean [Left Arm] 105 Blood Pressure Position [Left Arm] Semi-fowlers Pulse Oximetry 98 93 Oxygen Delivery Method Room Air Room Air Sepsis Recent Fever Within 48 Hours No Sepsis New/Unexplained Change in Mental Status N/A Sepsis Action Taken by Nursing No Action Required 05/31/23 20:48 Temperature Temperature Source Pulse Rate 60 Pulse Rate [Right Finger] Respiratory Rate Respiratory Effort / Characteristics Respiratory Depth Respiratory Pattern Blood Pressure Blood Pressure [Left Arm] Blood Pressure Mean Blood Pressure Mean [Left Arm] Blood Pressure Position [Left Arm] Pulse Oximetry Oxygen Delivery Method Sepsis Recent Fever Within 48 Hours Sepsis New/Unexplained Change in Mental Status Sepsis Action Taken by Nursing Physical Exam HENT: Exam performed. - Head: Normocephalic and atraumatic. EYES: Blind in the left eye. NECK: Normal range of motion. Neck supple. No JVD present. CV: Normal rate, irregular rhythm, normal heart sounds and intact distal pulses. There is no peripheral edema. Palpable radial pulses bue. PULM/CHEST: Effort normal and breath sounds normal. No respiratory distress. No stridor. He has no wheezes. He has no rales. ABD: The abdomen is soft. MUSC/SKEL: Normal range of motion. There is no peripheral edema, tenderness or deformity. LYMPH: No cervical adenopathy. NEURO: Motor and sensation grossly intact. SKIN: Lesion over the patient's left external nose that has irregular borders and different colors. There is no bleeding or discharge from it. Course Course 1626: The patient was evaluated in room A2. A complete history and physical exam was performed Cardiac monitoring: An order was placed for continuous cardiac monitoring. The monitor shows a rate of 70 with sinus interpreted by md 0: Vital signs stable. Labs within normal limits. Imaging shows no ICH there is 70% stenosis of his right internal carotid artery. Patient is not a candidate for TNK as his symptoms have been going on for more than 24 hours. Daughter states that the patient is very unsteady on his feet and he does not feel he is safe at home and she is concerned he will fall. Patient could be suffering from TIA given his dizziness weakness and paresthesias. Discussed the case with Dr. Cervantes who evaluate the patient for admission. Administered Medications Discontinued Medications Ioversol (Optiray 320 125ml) 116 ml IV ONCE ONE Stop: 05/31/23 18:59 Last Admin: 05/31/23 18:58 Dose: 116 ml Documented By: DHAVAL Medical Decision Making Laboratory Data Attestation: I reviewed the patient's lab results. 05/31/23 16:12 05/31/23 16:12 Lab Results 05/31/23 05/31/23 Range/Units 16:12 16:55 WBC 8.89 (4.8-10.8) K/ul RBC 4.04 L (4.70-6.10) M/uL Hgb 12.1 L (14.0-18.0) g/dl Hct 35.6 L (42.0-52.0) % MCV 88.1 (80.0-100.0) fL MCH 30.0 (25.0-34.0) pg MCHC 34.0 (32.0-36.0) g/dL RDW Std Deviation 46.3 (36.4-46.3) fL RDW Coeff of Roderick 14.3 (11.5-14.5) % Plt Count 278 (130-400) K/uL MPV 10.3 (9.4-12.4) fL Immature Gran % (Auto) 0.4 % Neut % (Auto) 75.7 % Lymph % (Auto) 10.5 % Bracken % (Auto) 11.4 % Eos % (Auto) 1.7 % Baso % (Auto) 0.3 % Neut # (Auto) 6.73 H (1.40-6.50) K/uL Lymph # (Auto) 0.93 L (1.20-3.40) K/uL Bracken # (Auto) 1.01 H (0.11-0.59) K/uL Eos # (Auto) 0.15 (0.00-0.50) K/uL Baso # (Auto) 0.03 (0.00-0.20) K/uL Immature Gran # (Auto) 0.04 (0.01-0.20) K/uL PT 10.6 (9.0-12.0) Seconds INR 1.0 (0.9-1.1) APTT 27 (21-31) Seconds PTT Ratio 1.0 VBG pH 7.39 (7.36-7.41) VBG pCO2 46 (38-50) mmHg VBG pO2 25 mmHg VBG HCO3 28 mmol/L VBG O2 Saturation < 60.0 % VBG Base Excess 2.2 mEq/L Sodium 135 L (136-145) mmol/L Potassium 4.3 (3.5-5.1) mmol/L Chloride 102 (98-107) mmol/L Carbon Dioxide 26 (21-32) mmol/L Anion Gap 7 (3-11) BUN 26 H (6-23) mg/dl Creatinine 1.21 (0.6-1.4) mg/dl Est Cr Clr Drug Dosing 41.0 ml/min Est GFR ( Amer) 62.5 ml/min Est GFR (Non-Af Amer) 53.9 ml/min BUN/Creatinine Ratio 21.5 H (10-20) Glucose 113 H (70-99(Fasting)) mg/dl Calcium 10.0 (8.6-10.3) mg/dl Magnesium 2.1 (1.7-2.4) mg/dl Total Bilirubin 1.1 H (0.2-1.0) mg/dl AST 23 (13-39) U/L ALT 16 (7-52) U/L Alkaline Phosphatase 91 (34-104) U/L Ammonia 19.0 (18-72) umol/L Troponin I High Sens 5.1 (0-20) pg/ml Total Protein 7.6 (6.0-8.3) gm/dl Albumin 4.6 (3.4-5.0) gm/dl Globulin 3.0 (2.5-4.0) gm/dl Albumin/Globulin Ratio 1.5 (0.9-2) TSH 5.218 H (0.300-4.500) uIu/ml Imaging Data Radiologist's Impression: Chest X-Ray 05/31/23 14:32 XR chest 1V not portable HISTORY: Weakness COMPARISON: Chest 03/01/2023. FINDINGS: No pneumothorax. No pleural effusions. There are low lung volumes. Prior cholecystectomy. Mild chronic interstitial thickening persists. Left basilar linear densities favor subsegmental atelectasis. No evidence for pulmonary edema. The heart remains enlarged. Increase in size in the right perihilar masslike opacity which measures 5.3 cm. Calcifications within the aortic knob. No acute fractures. Right hilar fullness may represent lymphadenopathy. IMPRESSION: 1. Increase in size in the right perihilar masslike opacity. This is highly suspicious for a primary bronchogenic malignancy. 2. Otherwise, no focal lung consolidations to suggest a pneumonia. 3. Stable cardiomegaly. 4. Right hilar fullness may represent lymphadenopathy. ACT 112: Negative or not required by law. Electronically signed by: Gildardo Alves M.D. 05/31/2023 4:[address] 05/31/23 14:[address] DOSE: 703.85 mGy.cm HISTORY: dizziness, gen weakness TECHNIQUE: Multiaxial CT images of the head were performed without the use of intravenous contrast. Automated exposure control was utilized for this study. A dose lowering technique was utilized adhering to the principles of ALARA. Comparison: Head CT 03/01/2023. Findings: The paranasal sinuses and mastoid air cells are clear. The calvarium and skull base are intact. There is no mass, hematoma, midline shift, acute infarct. White matter hypodensity is nonspecific but suggestive of microvascular ischemic change. The ventricles and sulci demonstrate mild age-related involutional changes. Old small right cerebral infarcts again noted. Impression: No significant change compared to the prior study. No acute intracranial abnormality. ACT 112: Negative or not required by law. Electronically signed by: Gildardo Alves M.D. 05/31/2023 3:47 PM Head CTA 05/31/23 18:17 Exam(s): CTA HEAD With Contrast IV Amt: 116ml EXAM: CT Angiography Head With Intravenous Contrast CLINICAL HISTORY: Reason for exam: dizziness. TECHNIQUE: Axial computed tomographic angiography images of the head with intravenous contrast. CTDI is 34 mGy and DLP is 480.03 mGy-cm. Automated exposure control was utilized for the study. A dose lowering technique was utilized adhering to the principles of ALARA. MIP reconstructed images were created and reviewed. CONTRAST: Patient received 116ml of IV contrast COMPARISON: No relevant prior studies available. FINDINGS: Right internal carotid artery: No acute findings. Intracranial segment is patent with no significant stenosis. No aneurysm. Right anterior cerebral artery: Unremarkable. No occlusion or significant stenosis. No aneurysm. Right middle cerebral artery: Unremarkable. No occlusion or significant stenosis. No aneurysm. Right posterior cerebral artery: Unremarkable. No occlusion or significant stenosis. No aneurysm. Right vertebral artery: Unremarkable as visualized. Left internal carotid artery: No acute findings. Intracranial segment is patent with no significant stenosis. No aneurysm. Left anterior cerebral artery: Unremarkable. No occlusion or significant stenosis. No aneurysm. Left middle cerebral artery: Unremarkable. No occlusion or significant stenosis. No aneurysm. Left posterior cerebral artery: Unremarkable. No occlusion or significant stenosis. No aneurysm. Left vertebral artery: Unremarkable as visualized. Basilar artery: Unremarkable. No occlusion or significant stenosis. No aneurysm. IMPRESSION: Normal head CTA. Electronically signed by: Sang Rodriguez MD 05/31/23 19:48 PM Neck CTA 05/31/23 18:17 Exam(s): CTA NECK With Contrast IV Amt: 116ml EXAM: CT Angiography Neck With Intravenous Contrast CLINICAL HISTORY: Reason for exam: dizziness. TECHNIQUE: Routine carotid CT angiography protocol was performed with intravenous contrast. NASCET criteria using the distal ICAs for comparison were used for evaluation of stenoses. CTDI is 34 mGy and DLP is 480.03 mGy-cm. Automated exposure control was utilized for the study. A dose lowering technique was utilized adhering to the principles of ALARA. 3D and MIP reconstructed images were created and reviewed. CONTRAST: Patient received 116ml of IV contrast COMPARISON: None. FINDINGS: VASCULATURE: Right common carotid artery: Unremarkable. No occlusion or significant stenosis. No dissection. Right internal carotid artery: Dense atherosclerotic plaque extending into the proximal right ICA resulting in 70% stenosis in the proximal ICA. No dissection. Right external carotid artery: Unremarkable. No occlusion. Right vertebral artery: Unremarkable. No occlusion or significant stenosis. No dissection. Left common carotid artery: Mild calcific change of the left common carotid artery. No occlusion or significant stenosis. No dissection. Left internal carotid artery: Unremarkable. Extracranial segment is patent with no occlusion or significant stenosis. No dissection. Left external carotid artery: Unremarkable. No occlusion. Left vertebral artery: Unremarkable. No occlusion or significant stenosis. No dissection. NECK: Bones/joints: Unremarkable. No acute fracture. Soft tissues: Unremarkable. Lymph nodes: Innumerable upper thoracic lymph nodes. Lung apices: Clear. CAROTID STENOSIS REFERENCE USING NASCET CRITERIA: % ICA stenosis = (1 - narrowest ICA diameter/diameter of distal cervical ICA) x 100. Mild - <50% stenosis. Moderate - 50-69% stenosis. Severe - 70-94% stenosis. Near occlusion - 95-99% stenosis. Occluded - 100% stenosis. IMPRESSION: 1. 70% stenosis involving the proximal right ICA. 2. Innumerable upper thoracic lymph nodes. Incompletely evaluated on this exam. Electronically signed by: Sang Rodriguez MD 05/31/23 19:56 PM ECG Data Attestation: I personally reviewed and interpreted this ECG as follows: Rate (beats per minute): 70 Rhythm: + sinus with SA ECG Intervals/blocks: + First degree AV block, + Normal QRS and + Normal QT-c ECG ST segments: + Normal ST segments ECG Findings: + [facility] Narrative 1626: The patient was evaluated in room A2. A complete history and physical exam was performed Cardiac monitoring: An order was placed for continuous cardiac monitoring. The monitor shows a rate of 70 with sinus interpreted by me 2049: Vital signs stable. Labs within normal limits. Imaging shows no ICH there is 70% stenosis of his right internal carotid artery. Patient is not a candidate for TNK as his symptoms have been going on for more than 24 hours. Daughter states that the patient is very unsteady on his feet and he does not feel he is safe at home and she is concerned he will fall. Patient could be suffering from TIA given his dizziness weakness and paresthesias. Discussed the case with Dr. Cervantes who evaluate the patient for admission. Impression & Plan Paresthesia, Stroke-like symptoms Discharge Plan Visit Data Chief Complaint: Dizziness Stated Complaint: DIZZINESS/HANDS GOING NUMB ED Provider: Inderjit Hameed Discharge Problem: Paresthesia, Stroke-like symptoms Patient Disposition: Being Evaluated by Hospitalist Forms Stand Alone Forms: [facility] Prescriptions Prescriptions: No Action nitroglycerin [Nitrostat] 0.4 mg Tablet, Sublingual 0.4 mg Sublingual DIRECTED PRN (Reason: Chest Pain) multivitamin Tablet 1 tab PO DAILY Qty: 30 0RF atorvastatin 80 mg Tablet 80 mg PO QAM Qty: 30 0RF clopidogrel 75 mg tablet 75 mg PO DAILY Qty: 30 0RF pantoprazole 40 mg tablet,delayed release (DR/EC) 40 mg PO DAILY Qty: 30 0RF metoprolol succinate [Toprol XL] 25 mg Tablet Extended Release 24 Hr 12.5 mg PO DAILY Qty: 30 0RF famotidine 20 mg tablet 20 mg PO DAILY PRN (Reason: Heartburn) sodium chloride 1,000 mg Tablet,Soluble 1,000 mg PO DAILY Referrals Referrals: PCP,NO [Primary Care Provider] -
[2023-05-31 21:55] LABS: T4 Free Thyroxine 0.96 ng/dl (0.61-1.60)
[2023-05-31] MEDS: ASPIRIN CHEW 324 MG PO STA (22:35)
[2023-05-31] MEDS: SODIUM CHLORIDE 0.9% 1,000 ML IV ONE (22:36)
[2023-05-31 22:41] LABS: Lyme Screen Rflx Confirmation Positive (Negative)
[2023-05-31 22:43] LABS: Estimated Average Glucose 97 mg/dl
[2023-05-31] MEDS ORDERED: PHARMACIST DISCHARGE MED REC CONSULT PRN (23:43)
[2023-05-31] MEDS ORDERED: ACETAMINOPHEN 325 MG TAB PO PRN (23:43)
[2023-05-31] MEDS: lisinopril 2.5 MG TAB PO STA (23:45)
--- NOTE | 2023-06-01 02:03 | Magnetic Resonance Report ---
Exam(s): MRI HEAD Without Contrast EXAM: MR Head Without Intravenous Contrast CLINICAL HISTORY: Reason for exam: tia. TECHNIQUE: Magnetic resonance images of the head/brain without intravenous contrast in multiple planes. COMPARISON: 02/24/2020 FINDINGS: Brain: Unremarkable. No mass. No hemorrhage. No acute infarct. Ventricles: Unremarkable. No ventriculomegaly. Bones/joints: Unremarkable. No acute fracture. Sinuses: Unremarkable as visualized. No acute sinusitis. Mastoid air cells: Unremarkable as visualized. No mastoid effusion. Orbits: Unremarkable as visualized. IMPRESSION: Normal head/brain MRI. Electronically signed by: Sang Rodriguez MD 06/01/23 02:03 AM
[2023-06-01 07:45] LABS: Appearance Urine Clear (Clear); Bilirubin Urine Negative (Negative); Blood Urine Negative (Negative); Color Urine Yellow; Glucose Urine UA Negative (Negative); Ketones Urine Negative (Negative); Leukocyte Esterase Urine Negative (Negative); Nitrite Urine Negative (Negative); Protein Urine Negative (Negative); Specific Gravity Urine 1.033 (1.000-1.030); Urobilinogen Urine Negative (Negative); pH Urine 6.5 (4.5-7.5)
[2023-06-01] MEDS: CLOPIDOGREL BISULFATE 75 MG TAB PO SCH (08:32)
[2023-06-01] MEDS: ENOXAPARIN INJ 40 MG/0.4 ML SYR SQ SCH (08:32)
[2023-06-01] MEDS: METOPROLOL SUCC 25MG EXT REL TAB PO SCH (08:32)
[2023-06-01] MEDS: ATORVASTATIN 40 MG TAB PO SCH (08:32)
[2023-06-01] MEDS: ASPIRIN 81 MG ECTAB PO SCH (08:33)
[2023-06-01] MEDS: PANTOprazole 40 MG TAB PO SCH (08:33)
[2023-06-01] MEDS: MULTIVITAMIN TAB PO SCH (08:33)
[2023-06-01 09:07] LABS: Basophils # (auto) 0.06 K/uL (0.00-0.20); Basophils % (auto) 0.6 %; Hematocrit (blood only) 33.6 % (42.0-52.0); Hemoglobin 11.5 g/dl (14.0-18.0); Immature Granulocytes # (auto) 0.04 K/uL (0.01-0.20); Immature Granulocytes % (auto) 0.4 %; Lymphocytes # (auto) 1.04 K/uL (1.20-3.40); Lymphocytes % (auto) 10.8 %; Mean Corpuscular Hemoglobin 29.3 pg (25.0-34.0); Mean Corpuscular Hgb Conc 34.2 g/dL (32.0-36.0); Mean Corpuscular Volume 85.7 fL (80.0-100.0); Mean Platelet Volume 10.4 fL (9.4-12.4); Monocytes # (auto) 0.98 K/uL (0.11-0.59); Monocytes % (auto) 10.1 %; Neutrophils # (auto) 7.44 K/uL (1.40-6.50); Neutrophils % (auto) 77.1 %; Platelet Count 249 K/uL (130-400); RDW Coefficient of Variation 13.7 % (11.5-14.5); Red Blood Count 3.92 M/uL (4.70-6.10); White Blood Count 9.66 K/ul (4.8-10.8)
[2023-06-01 09:20] LABS: Calcium 9.9 mg/dl (8.6-10.3); Chol HDL Ratio 2.9 (0-5); Creatinine Clr Calc Pharmacy 42.7 ml/min; Est GFR (African American) 65.7 ml/min; Est GFR (Non-African American) 56.7 ml/min; Potassium 3.9 mmol/L (3.5-5.1)
[2023-06-01] MEDS: DOXYCYCLINE HYCLATE 100 MG CAP PO SCH (10:21)
--- NOTE | 2023-06-01 11:17 | Hospitalist Progress Note ---
Date of Service June 01, 2023 Assessment & Plan (1) Paresthesia: (2) Stroke-like symptoms: (3) Mediastinal adenopathy: (4) Carotid artery disease: (5) Chronic hyponatremia: (6) Hypertension: (7) Dyslipidemia: (8) Coronary artery disease: (9) Low grade B-cell lymphoma: (10) CKD (chronic kidney disease), stage III: Plan 87-year-old male with PMH of HTN, HLD, CAD status post PCI LAD in 2000, CKD stage III, CVA, chronic hyponatremia, B-cell lymphoma, thoracic aortic aneurysm, GERD, dementia presented to the ED with complaint of left hand numbness/weakness. He is being managed for the following: Transient LUE weakness/numbness Possible TIA History of CVA Patient presenting with transient LUE weakness/numbness Admitting CTA head and CT head with no acute finding Admitting CTA neck with 70% stenosis involving the proximal right ICA and innumerable upper thoracic lymph nodes. Admitting MRI brain with no acute finding. A1c 5.0 and LDL 62. Continue with DAPT for 21 days starting 05/31. Continue with home dose of statin. PT/OT, await recommendation. c/w neurochecks, telemetry monitoring. Delirium precaution. Pulmonary mass: Admitting CXR with right perihilar mass and associated lymphadenopathy. Has been noted in previous admissions as well, has been evaluated by pulmonology and recommended bronchoscopy with biopsy. Family leaning towards clinical surveillance with no interventions then. Follow-up with pulmonology as an outpatient and oncology as OP as prior. Noted recent OP bronchoscopic biopsy findings of recurrent B cell lymphoma. Lyme disease: Tested positive on 05/31, started doxycycline 05/31. Other chronic medical conditions: Continue with/resume home meds as and when able. History CAD sp stenting, history PVD Valvular heart disease (mild MR/TR/AR/, TTE 2022) HTN, c/t monitor, use prn meds if needed. Hyperlipidemia on statin Rx history non-Hodgkin's lymphoma status post radiation (patient refused chemotherapy in the past as per records), patient currently seeing [facility] oncologist given recent outpatient bronchoscopic biopsy findings of recurrent beta cell lymphoma Chronic hyponatremia on sodium tablets chronic anemia, hemoglobin at baseline Prediabetes, hemoglobin A1c of 4.9 2021 Dementia, baseline confusion as per daughter. past tobacco abuse DVT prophylaxis. Lovenox DNR/DNI Patient daughter Ms. Teressa Chavira, contact #[phone]. Called her phone for general update, left voicemail to call us back. Admission and Anticipated Discharge Date Admission Date: May 31, 2023 Subjective Patient was seen and examined at bedside. Patient was lying in bed, on room air, eating his breakfast, not in any acute distress. Patient is awake and alert but not oriented and is hard of hearing. He denies any pain or difficulty swallowing. Per RN no acute events overnight and patient has been eating okay. Physical Exam Physical Exam: GENERAL: Awake and alert. NAD, on RA. Old/frail/weak appearing HEENT: No pallor, no icterus. Pupils equal, round and reactive to light. Oral mucosa moist. Left eye with scarring [chronic left eye blindness] NECK: No JVD, no neck masses. HEART: S1 and S2 heard. Regular rate and rhythm. + murmur, no gallop. RESPIRATORY SYSTEM: Normal AP diameter. No accessory muscle use. No wheezing, no crackles. ABDOMEN: Soft, bowel sounds present, nontender, no distention. CENTRAL NERVOUS SYSTEM: No facial droop. Obeys simple commands. Moves extremities. Power bilaterally symmetric EXTREMITIES: No edema, no erythema seen. Results & Data Results & Data Vital Signs (Past 12 Hours) Vital Signs Temp Pulse Pulse Resp BP Pulse Ox O2 Del Method 06/01/23 08:00 Room Air 06/01/23 07:45 36.5 C 76 20 178/71 H 93 Room Air 06/01/23 07:00 70 06/01/23 04:45 149/87 H 06/01/23 04:07 36.4 C L 63 18 179/84 H 95 Room Air 06/01/23 01:06 51 L 06/01/23 00:12 36.5 C 55 L 18 192/74 H 95 Room Air 05/31/23 23:43 36.5 C 55 L 18 192/74 H 95 Room Air 05/31/23 23:11 60 20 174/86 H 98
--- OUTSIDE RECORDS SUMMARY | 2023-06-01 12:54 | External Medical Summary | Summary of Care ---
Author Name Unknown Organization [facility] Address [address] [facility] [place] [address] Phone [phone] Care Team Providers Care Roofing Supervisor Name Role Phone Unavailable Primary Care Provider Unavailabl e Reason for Visit * Reason Comments eRx-Medication Refill Encounter Details Date Type Department Care Team (Late st Contact Info) Description 05/13/2023 Refill Family Practice [facility] [address] [place] [address] Teresita Larry DO [address] [place] [address] Gastroesophageal reflux disease without esophagitis Allergies No known active allergiesdocumented as of this encounter (statuses as of 05/15/2023) Medications Medication Sig Dispensed Refills Start Date End Date Status Multiple Vitamins-Minerals (MULTIVITAMIN ADULT) TABS Take by mouth. 0 Active Sodium Chloride 1 GM Oral Tablet Take 1 Tablet by mouth in the morning. 0 01/05/2022 Active Atorvastatin Calcium 80 MG Oral Tablet (Lipitor)Indicati ons:Dyslipidemia, goal LDL below 100 Take 1 tablet by mouth once daily 90 Tablet 2 07/28/2022 Active Additional Information Patient not taking.Reported on 05/09/2023 Pantoprazole Sodium 40 MG Oral Tablet Delayed Release (Protonix)Indicat ions:Gastroesopha geal reflux disease without esophagitis TAKE 1 TABLET BY MOUTH IN THE MORNING 30 Tablet 2 03/29/2023 Active Metoprolol Succinate ER 25 MG Oral Tablet Extended Release 24 Hour (toPROL XL)Indications:CA D (coronary artery disease),HTN, goal below 140/90 Take 1/2 (one-half) tablet by mouth once daily 45 Tablet 0 04/17/2023 Active Nitroglycerin 0.4 MG Sublingual Tablet Sublingual (Nitrostat)Indica tions:Coronary artery disease involving [place] coronary artery of [place] heart without angina pectoris DISSOLVE ONE TABLET UNDER THE TONGUE EVERY 5 MINUTES NEEDED FOR CHEST PAIN. DO NOT EXCEED A TOTAL OF 3 DOSES IN 15 MINUTES 25 Tablet 3 04/26/2023 Active Famotidine 20 MG Oral Tablet (Pepcid)Indicatio ns:Gastroesophage al reflux disease without esophagitis TAKE 1 TABLET BY MOUTH ONCE DAILY NEEDED FOR HEART 30 Tablet 2 05/15/2023 Active Clopidogrel Bisulfate 75 MG Oral Tablet (pLAVix) Take 1 tablet by mouth once daily 90 Tablet 3 05/06/2022 4 Discontinued Famotidine 20 MG Oral Tablet (Pepcid)Indicatio ns:Gastroesophage al reflux disease without esophagitis TAKE 1 TABLET BY MOUTH ONCE DAILY NEEDED FOR HEART BURN 30 Tablet 0 04/13/2023 4 Discontinued documented as of this encounter (statuses as of 05/15/2023) Active Problems Problem Noted Date Diagnosed Date Nonrheumatic aortic valve stenosis 04/26/2023 Hypertension goal BP (blood pressure) < 130/80 0 04/26/2023 Lung consolidation 01/12/2022 Vascular dementia without behavioral disturbance 01/11/2022 Aortic ectasia 01/11/2022 Mass of upper lobe of right lung 01/11/2022 Pneumonia of right upper lobe due to infectious organism 01/11/2022 Hyponatremia 01/11/2022 COVID-19 virus infection 01/11/2022 Prediabetes 02/15/2021 Overview: Per Prediabetes protocol Chronic kidney disease, stage 3a 09/22/2020 Overview: Per CKD protocol Dementia without behavioral disturbance 09/06/19 21 Benign hypertension with stage 3a chronic kidney disease 08/18/2020 Overview: Per CKD protocol Cerebrovascular disease, arteriosclerotic, post- stroke 03/27/2019 Carotid atherosclerosis, bilateral 03/27/2019 Elevated TSH 03/27/2019 Memory loss 03/27/2019 Cholelithiasis 06/18/2018 CAD (coronary artery disease) 07/10/2014 Encounter for antineoplastic chemotherapy 2013 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 ADVANCE DIRECTIVE INFORMATION 11/30/2004 Overview: No, Advance Directive brochure given to patient. 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 documented as of this encounter (statuses as of 05/15/2023) Immunizations Name Administration Dates Next Due Diptheria/Tetanus (Adult) 09/08/2001 Pneumococcal Conjugate Vacci ne, 20-valent ([id number]) 01/11/2022 Seasonal Influenza, QUAD, wi th Preserv, [...] drink = 0.6 oz pur e alcohol) PHQ-2 Answer Date Recorded PHQ Adult Total Score 0 01/11/2022 Hunger Vital Sign Answer Date Recorded Within the past 12 months, y ou worried that your food would run out before you got the money to buy more. Never true 01/12/20 22 Within the past 12 months, t he food you bought just didn't last and you didn't have money to get more. Never true 01/11/2022 Sex and Gender Information Value Date Recorded Sex Assigned at Not on file Gender Identity Not on file Sexual Orientation Not on file Job Start Date Occupation Industry Not on file Not on file Not on file documented as of this encounter Miscellaneous Notes * Telephone Encounter - Gabrielle Magdaleno MD - 05/15/2023 2:01 PM ESTSigned Prescriptions: Disp Refills Famotidine 20 MG Oral Tablet (Pepcid) 30 Tab*2 Sig: TAKE 1 TABLET BY MOUTH ONCE DAILY NEEDED FOR HEART Authorizing Provider: GABRIELLE MAGDALENO * Telephone Encounter - Flaquita Lopez LPN - 05/15/2023 12:23 PM ESTPending Prescriptions: Disp Refills Famotidine 20 MG Oral Tablet (Pepcid) 30 Tab*2 Sig: TAKE 1 TABLET BY MOUTH ONCE DAILY NEEDED FOR HEART * Telephone Encounter - Angela Henderson [facility] - 05/15/2023 12:21 PM ESTPending Prescriptions: Disp Refills Famotidine 20 MG Oral Tablet (Pepcid) 30 Tab*2 Sig: TAKE 1 TABLET BY MOUTH ONCE DAILY NEEDED FOR HEART * Telephone Encounter - Angela Henderson [facility] - 05/15/2023 12:21 PM EST Patient has no PCP under whom to authorize refills. Please approve if appropriate. Thanks, Angela Henderson Clinical Pharmacist [facility] ([facility]) (Formerly Telepharmacy) [phone] 05/15/2023, 12:21 PM * Telephone Encounter - Angela Henderson [facility] - 05/15/2023 12:21 PM EST Did you pend patient's preferred pharmacy and medication before forwarding?yes Pharmacy: [facility] [address] [place] [address] Pending Prescriptions: Disp Refills Famotidine 20 MG Oral Tablet (Pepcid) [Ph*30 Tab*2 Sig: TAKE 1 TABLET BY MOUTH ONCE DAILY NEEDED FOR HEART Last Visit: 03/20/2023 (in office), 02/17/2022 (telemedicine) Next Visit: 06/19/2023 If no future appointments scheduled, and last appointment is greater than a year ago, please schedule patient for a follow-up appointment Last date the medication was ordered: 04/13/23 Is this request for a controlled substance?No Urine Drug Screen:No results found for this or any previous visit. Patient Phone Numbers Labs: Lab Results Component Value Date/Time CREAT 1.2 05/09/2023 10:55 AM CREAT 1.3 (H) 10/09/2019 10:02 AM POTASSIUM 4.4 05/09/2023 10:55 AM POTASSIUM 4.3 10/09/2019 10:02 AM TSH 5.24 (H) 03/29/2022 12:01 PM TSH 5.23 (H) 03/27/2019 09:51 AM LDLCALC 60 08/28/2017 08:33 AM LDLDIRECT 62 02/17/2021 02:28 PM LDLDIRECT 84 09/18/2018 09:17 AM ALT 21 05/09/2023 10:55 AM ALT 23 04/25/2019 07:51 AM HGBA1C 4.9 03/29/2022 12:01 PM HGBA1C 5.6 04/30/2018 03:06 PM documented in this encounter Plan of Treatment Upcoming Encounters Date Type Department Care Team (Late st Contact Info) Description 05/22/2023 11:45 AM EST Imaging Radiology, [facility] [address] [place] [id number] 05/31/2023 3:15 PM EST Office Visit Hematology/Oncology [facility] [place] [address] [place] [address] Marcial Mayer MD [address] [place] [address] 06/19/2023 4:00 PM EDT Office Visit [facility] [address] [place] [address] Gabrielle Magdaleno MD [address] [place] [address] 10/25/2023 11:00 AM EDT Cardiac Studies Cardiac Studies, [facility] [address] [place] [address] Health Maintenance Due Date Last Done Comments COVID-19 Vaccine (#1) 1940 Zoster Vaccines (1 of 2) 12/24/1954 DTaP,Tdap,and Td Vaccines (2 - Td or Tdap) 06/28/2022 06/28/2012, 09/08/2001 Influenza Vaccine (FLU shot) (#1) 2022 01/11/2022, 02/26/2021, 01/14/2020, Additional history exists Depression Screening 01/11/2023 01/11/2022 CKD PHOS USE SMARTSET 60759 03/29/202303/11, 02/17/2021, 10/09/2019, Additional history exists HbA1c 03/29/2023 03/29/2022, 01/08, 04/30/2018 Albumin/Creatinine Ratio 05/09/2024 05/09/2023 CKD HGB USE SMARTSET 52730 05/09/202405/09, 05/09/2023, 03/12/2023, Additional history exists Pneumococcal Vaccine: 65+ Years [...]
--- OUTSIDE RECORDS SUMMARY | 2023-06-01 12:54 | External Medical Summary | Summary of Care ---
Author Name Unknown Organization [facility] Address [address] [facility] [place] [address] Phone [phone] Care Team Providers Care Radiographic Technologist Name Role Phone Unavailable Primary Care Provider Unavailabl e Reason for Visit * Reason Onset Date Comments Medication Refill 05/16/2023 Encounter Details Date Type Department Care Team (Late st Contact Info) Description 05/16/2023 Refill Family Practice [facility] [address] [place] [address] Joaquin Ramirez DO [address] [place] [address] S/P angioplasty with stent*; Coronary artery disease involving [place] coronary artery of [place] heart without angina pectoris Allergies No known active allergiesdocumented as of this encounter (statuses as of 05/17/2023) Medications Medication Sig Dispensed Refills Start Date [...] Tablet Sublingual (Nitrostat)Indica tions:Coronary artery disease involving [place] coronary artery of [place] heart without angina pectoris DISSOLVE ONE TABLET [...] Active Clopidogrel Bisulfate 75 MG Oral Tablet (pLAVix)Indicatio ns:S/P angioplasty with stent,Coronary artery disease involving [place] coronary artery of [place] heart without angina pectoris Take 1 Tablet by mouth in the morning. 90 Tablet 0 05/17/2023 Active Clopidogrel Bisulfate 75 MG Oral Tablet (pLAVix) Take 1 tablet by mouth once daily 90 Tablet 0 05/15/2023 Discontinue d(Refill) documented as of this encounter (statuses as of 05/17/2023) Active Problems Problem Noted Date Diagnosed Date [...] stent 01/16/2003 Blindness, one eye 01/16/2003 FM [id number] DIS NEC 01/11/2002 documented as of this encounter (statuses as of 05/17/2023) Resolved Problems Problem Noted Date Diagnosed Date [...] as of this encounter (statuses as of 05/17/2023) Immunizations Name Administration Dates Next Due Diptheria/Tetanus (Adult) 09/08/2001 Pneumococcal Conjugate Vacci ne, 20-valent ([id number]) 01/11/2022 Seasonal Influenza, QUAD, wi th Preserv, [...] on file documented as of this encounter Plan of Treatment Upcoming Encounters Date Type Department Care Team (Late st Contact Info) Description 05/22/2023 11:45 AM EST Imaging Radiology, [facility] [address] [place] [id number] 05/31/2023 3:15 PM EST [facility] [address] [place] [address] Marcial Mayer MD [address] [place] [address] 06/19/2023 4:00 PM EDT Office Visit Family Practice [facility] [address] [place] [address] Bonilla Mgadaleno MD [address] [place] [address] 10/25/2023 11:00 AM EDT Cardiac Studies Cardiac Studies, [facility] [address] [place] [address] Health Maintenance Due Date Last Done Comments COVID-19 Vaccine (#1) 1940 Zoster Vaccines (1 of 2) 12/24/1954 DTaP,Tdap,and Td Vaccines (2 - Td or Tdap) 06/28/2022 06/28/2012, 09/08/2001 Influenza Vaccine (FLU shot) (#1) 2022 01/11/2022, 02/26/2021, 01/14/2020, Additional history exists Depression Screening 01/11/2023 01/11/2022 CKD PHOS USE SMARTSET 84040 03/29/202303/11, 02/17/2021, 10/09/2019, Additional history exists HbA1c 03/29/2023 03/29/2022, 01/08, 04/30/2018 Albumin/Creatinine Ratio 05/09/2024 05/09/2023 CKD HGB USE SMARTSET 03498 05/09/202405/09, 05/09/2023, 03/12/2023, Additional history exists Pneumococcal [...] as of this encounter Visit Diagnoses Diagnosis S/P angioplasty with stent- Primary Postsurgical percutaneous transluminal coronary angioplasty status Coronary artery disease involving [place] coronary artery of [place] heart without angina pectoris documented in this encounter
--- OUTSIDE RECORDS SUMMARY | 2023-06-01 12:54 | External Medical Summary | Summary of Care ---
Author Name Unknown Organization [facility] Address [address] [facility] [place] [address] Phone [phone] Care Team Providers Care Wastewater Superintendent Name Role Phone Unavailable Primary Care Provider Unavailabl e Reason for Visit * Reason Comments eRx-Medication Refill Encounter Details Date Type Department Care Team (Late st Contact Info) Description 05/14/2023 Refill Family Practice [facility] [address] [facility] [place] [address] Joaquin Ramirez, DO [address] [place] [address] Allergies No known active allergiesdocumented as of [...] (coronary artery disease),HTN, goal below 140/90 Take 2 (one-half) tablet by mouth once daily 45 Tablet 0 04/17/2023 Active Nitroglycerin 0.4 MG Sublingual Tablet Sublingual (Nitrostat)Indica tions:Coronary artery disease involving [place] coronary artery of [place] heart without angina pectoris DISSOLVE ONE TABLET [...] mouth once daily 90 Tablet 0 05/15/2023 Active Clopidogrel Bisulfate 75 MG Oral Tablet (pLAVix) Take 1 tablet by mouth once daily 90 Tablet 3 05/06/2022 4 Discontinued documented as of this encounter [...] stent 01/16/2003 Blindness, one eye 01/16/2003 FM [id number] DIS NEC 01/11/2002 documented as of this [...] (Adult) 09/08/2001 Pneumococcal Conjugate Vacci ne, 20-valent ([id number]) 01/11/2022 Seasonal Influenza, QUAD, wi th Preserv, [...] Miscellaneous Notes * Telephone Encounter - Gabrielle Power MD - 05/15/2023 2:01 PM ESTSigned Prescriptions: Disp Refills Clopidogrel Bisulfate 75 MG Oral Tablet (p*90 Tab*0 Sig: Take 1 tablet by mouth once daily Authorizing Provider: GABRIELLE POWER * Telephone Encounter - Matt Moses [facility] - 05/15/2023 1:20 PM EST Pending Prescriptions: Disp Refills Clopidogrel Bisulfate 75 MG Oral Tablet 90 Tab*0 Sig: Take 1 tablet by mouth once daily * Telephone Encounter - Matt Moses [facility] - 05/15/2023 1:18 PM EST Unable to authorize medication refills for pended medication(s) at this time. Part of the protocol criteria used for refill authorization was not satisfied. Patient needs HCT and HGB with in normal limits . Please approve if appropriate. Thank You, Matt Moses, Pharm-D Clinical Pharmacist [facility]acy Services ([facility]PS) (Formerly Telepharmacy) [phone] 05/15/2023, 1:18 PM Did you pend patient's preferred pharmacy and medication before forwarding?yes Pharmacy: [facility] [address] [place] [address] Pending Prescriptions: Disp Refills Clopidogrel Bisulfate 75 MG Oral Tablet (*90 Tab*0 Sig: Take 1 tablet by mouth once daily Last Visit: 03/20/2023 (in office), 02/17/2022 (telemedicine) Next Visit: 06/19/2023 If no future appointments scheduled, and last appointment is greater than a year ago, please schedule patient for a follow-up appointment Last date the medication was ordered: 05/06/2022 Is this request for a controlled substance?No [...] Description 05/22/2023 11:45 AM EST Imaging Radiology, [facility] [address] [place] [phone] 05/31/2023 3:15 PM EST Office Visit Hematology/Oncology [facility] [address] [place] [address] Marcial Mayer MD [address] [place] [address] 06/19/2023 4:00 PM EDT Office Visit Family Practice [facility] [address] [place] [address] Gabrielle Power MD [address] [place] [address] 10/25/2023 11:00 AM EDT Cardiac Studies Cardiac Studies, [facility] [address] [facility] [place] [address] Health Maintenance Due Date Last Done Comments COVID-19 Vaccine (#1) 1940 Zoster Vaccines (1 of 2) 12/24/1954 DTaP,Tdap,and Td Vaccines (2 - Td or Tdap) 06/28/2022 06/28/2012, 09/08/2001 Influenza Vaccine (FLU shot) (#1) 2022 01/11/2022, 02/26/2021, 01/14/2020, Additional history exists Depression Screening 01/11/2023 01/11/2022 CKD PHOS USE SMARTSET 31070 03/29/2023 12/, 02/17/2021, 10/09/2019, Additional history exists HbA1c 03/29/2023 03/29/2022, 01/08, 04/30/2018 Albumin/Creatinine Ratio 05/09/2024 05/09/2023 CKD HGB USE SMARTSET 29201 05/09/202405/09, 05/09/2023, 03/12/2023, Additional history exists Pneumococcal [...]
--- OUTSIDE RECORDS SUMMARY | 2023-06-01 12:54 | External Medical Summary | Summary of Care ---
Author Name Unknown Organization [facility] Address [address] [place] [address] Phone [phone] Care Team Providers Care Imager Name Role Phone Unavailable Primary Care Provider Unavailabl e Reason for Visit * Reason Onset Date Comments Order Request 05/30/2023 Encounter Details Date Type Department Care Team (Late st Contact Info) Description 05/30/2023 Telephone Vascular Surg [facility] [address] [place] [address] Des Rice MD [address] [place] [address] Order Request Allergies No known active allergiesdocumented as of this encounter (statuses as of 05/30/2023) Medications Medication Sig Dispensed Refills Start Date End Date Status Multiple Vitamins-Minerals (MULTIVITAMIN ADULT) TABS Take by mouth. 0 Active Sodium Chloride 1 GM Oral Tablet Take 1 Tablet by mouth in the morning. 0 01/05/2022 Active Atorvastatin Calcium 80 MG Oral Tablet (Lipitor)Indication s:Dyslipidemia, goal LDL below 100 Take 1 tablet by mouth once daily 90 Tablet 2 07/28/2022 Active Additional Information Patient not taking.Reported on 05/09/2023 Pantoprazole Sodium 40 MG Oral Tablet Delayed Release (Protonix)Indicatio ns:Gastroesophageal reflux disease without esophagitis TAKE 1 TABLET BY MOUTH IN THE MORNING 30 Tablet 2 03/29/2023 Active Metoprolol Succinate ER 25 MG Oral Tablet Extended Release 24 Hour (toPROL XL)Indications:CAD (coronary artery disease),HTN, goal below 140/90 Take 1/2 (one-half) tablet by mouth once daily 45 Tablet 0 04/17/2023 Active Nitroglycerin 0.4 MG Sublingual Tablet Sublingual (Nitrostat)Indicati ons:Coronary artery disease involving [place] coronary artery of [place] heart without angina pectoris DISSOLVE ONE TABLET UNDER THE TONGUE EVERY 5 MINUTES NEEDED FOR CHEST PAIN. DO NOT EXCEED A TOTAL OF 3 DOSES IN 15 MINUTES 25 Tablet 3 04/26/2023 Active Famotidine 20 MG Oral Tablet (Pepcid)Indications :Gastroesophageal reflux disease without esophagitis TAKE 1 TABLET BY MOUTH ONCE DAILY NEEDED FOR HEART 30 Tablet 2 05/15/2023 Active Clopidogrel Bisulfate 75 MG Oral Tablet (pLAVix)Indications :S/P angioplasty with stent,Coronary artery disease involving [place] coronary artery of [place] heart without angina pectoris Take 1 Tablet by mouth in the morning. 90 Tablet 0 05/17/2023 Active documented as of this encounter (statuses as of 05/30/2023) Active Problems Problem Noted Date Diagnosed Date [...] stent 01/16/2003 Blindness, one eye 01/16/2003 FM [id number] DIS NEC 01/11/2002 documented as of this encounter (statuses as of 05/30/2023) Resolved Problems Problem Noted Date Diagnosed Date [...] as of this encounter (statuses as of 05/30/2023) Immunizations Name Administration Dates Next Due Diptheria/Tetanus (Adult) 09/08/2001 Pneumococcal Conjugate Vacci ne, 20-valent ([id number]) 01/11/2022 Seasonal Influenza, QUAD, wi th Preserv, [...] encounter Miscellaneous Notes * Telephone Encounter - Amber Campo OSA - 05/30/2023 1:29 PM EST Follow up in [place] with Dwayne and Carotid duplex in two years. Carotid duplex to be completed one week prior to the appt Please place order for carotid duplex so patient can be scheduled [facility] documented in this encounter Plan of Treatment Upcoming Encounters Date Type Department Care Team (Late st Contact Info) Description 05/31/2023 3:15 PM EST Office Visit Hematology/Oncology [facility] [address] [place] [id number] Marcial Mayer MD [address] [place] [address] 06/19/2023 4:00 PM EDT Office Visit Family Practice [facility] [address] [place] [address] Bonilla Magdaleno MD [address] [place] [address] 10/25/2023 11:00 AM EDT Cardiac Studies Cardiac Studies, [facility] [address] [place] [address] Health Maintenance Due Date Last Done Comments COVID-19 Vaccine (#1) 1940 Zoster Vaccines (1 of 2) 12/24/1954 DTaP,Tdap,and Td Vaccines (2 - Td or Tdap) 06/28/2022 06/28/2012, 09/08/2001 Influenza Vaccine (FLU shot) (#1) 2022 01/11/2022, 02/26/2021, 01/14/2020, Additional history exists Depression Screening 01/11/2023 01/11/2022 CKD PHOS USE SMARTSET 80264 03/29/202303/11, 02/17/2021, 10/09/2019, Additional history exists HbA1c 03/29/2023 03/29/2022, 01/08, 04/30/2018 Albumin/Creatinine Ratio 05/09/2024 05/09/2023 CKD HGB USE SMARTSET 25070 05/09/202405/09, 05/09/2023, 03/12/2023, Additional history exists Pneumococcal [...]
--- OUTSIDE RECORDS SUMMARY | 2023-06-01 12:54 | External Medical Summary | Summary of Care ---
Author Name Unknown Organization [facility] Address [address] [place] [address] Phone [phone] Care Team Providers Care Superintendent Transmission Name Role Phone Unavailable Primary Care Provider Unavailabl e Reason for Visit * Reason Onset Date Comments Order Request 05/30/2023 Encounter Details Date Type Department Care Team (Late st Contact Info) Description 05/30/2023 Telephone Vascular Surg [facility] [address] [place] [address] Des Rice MD [address] [place] [address] Order Request Allergies No known active allergiesdocumented as of this encounter (statuses as of 05/31/2023) Medications Medication Sig Dispensed Refills Start Date [...] Tablet Sublingual (Nitrostat)Indicati ons:Coronary artery disease involving [place] coronary artery of [place] heart without angina pectoris DISSOLVE ONE TABLET [...] :S/P angioplasty with stent,Coronary artery disease involving [place] coronary artery of [place] heart without angina pectoris Take 1 Tablet by mouth in the morning. 90 Tablet 0 05/17/2023 Active documented as of this encounter (statuses as of 05/31/2023) Active Problems Problem Noted Date Diagnosed Date [...] stent 01/16/2003 Blindness, one eye 01/16/2003 FM [id number] DIS NEC 01/11/2002 documented as of this encounter (statuses as of 05/31/2023) Resolved Problems Problem Noted Date Diagnosed Date [...] as of this encounter (statuses as of 05/31/2023) Immunizations Name Administration Dates Next Due Diptheria/Tetanus (Adult) 09/08/2001 Pneumococcal Conjugate Vacci ne, 20-valent ([id number]) 01/11/2022 Pneumococcal Polysaccharide PPV23 (Pneumovax) 12/17/2004 Seasonal Influenza, QUAD, wi th Preserv, 6 mons & Above, 0.5 mL, IM 01/14/2020 Seasonal Influenza, Quadriva lent Hd (Fluzone Hd) 01/11/2022,02/26/2021 Seasonal Influenza, Split, I IV3, With Preserve, Inj 12/31/2012,12/19/2011,01/22/2011,02/09,03/26/2009,04/24/2007,01/16/2003 TDAP (age 10 and older)(Boostrix) 06/28/2012 documented [...] money to buy more. Never true 01/12/20 Within the past 12 months, t he [...] as of this encounter Miscellaneous Notes * Addendum Note - Ole Calvillo LPN - 05/31/2023 7:54 AM ESTAddended by: OLE CALVILLO on: 05/31/2023 07:54 AM Modules accepted: Orders * Telephone Encounter - Ole Calvillo LPN - 05/31/2023 7:52 AM EST Pt was last seen on 08/30/21 via telemedicine and plan was to f/u in 2 years with carotid duplex. New order pended Please review and sign if appropriate. Ole Calvillo LPN 05/31/2023 7:53 AM * Telephone Encounter - Amber Campo OSA - 05/30/2023 1:29 PM EST Follow up in [place] with [facility] and Carotid duplex in two years. Carotid duplex to be completed one week prior to the appt Please place order for carotid duplex so patient can be scheduled rrh documented in this encounter Plan of Treatment Upcoming Encounters Date Type Department Care Team (Late st Contact Info) Description 05/31/2023 3:15 PM EST Office Visit Hematology/Oncology [facility] [address] [facility] [place] [phone] Marcial Mayer MD [address] [facility] [place] [address] 06/19/2023 4:00 PM EDT Office Visit Family Practice [facility] [address] [place] [address] Bonilla Magdaleno MD [address] [place] [address] 10/25/2023 11:00 AM EDT Cardiac Studies Cardiac Studies, [facility] [address] [place] [address] Health Maintenance Due Date Last Done Comments COVID-19 Vaccine (#1) 1940 Zoster Vaccines (1 of 2) 12/24/1954 DTaP,Tdap,and Td Vaccines (2 - Td or Tdap) 06/28/2022 06/28/2012, 09/08/2001 Influenza Vaccine (FLU shot) (#1) 2022 01/11/2022, 02/26/2021, 01/14/2020, Additional history exists Depression Screening 01/11/2023 01/11/2022 CKD PHOS USE SMARTSET 89478 03/29/202303/11, 02/17/2021, 10/09/2019, Additional history exists HbA1c 03/29/2023 03/29/2022, 01/08, 04/30/2018 Albumin/Creatinine Ratio 05/09/2024 05/09/2023 CKD HGB USE SMARTSET 03560 05/09/202405/09, 05/09/2023, 03/12/2023, Additional history exists Pneumococcal [...] as of this encounter Visit Diagnoses Diagnosis Carotid atherosclerosis, bilateral- Primary documented in this encounter
--- OUTSIDE RECORDS SUMMARY | 2023-06-01 12:54 | External Medical Summary | Summary of Care ---
Author Name Unknown Organization [facility] Address [address] [place] [address] Phone [phone] Care Team Providers Care Brazing Machine Operator Name Role Phone Unavailable Primary Care Provider Unavailabl e Reason for Visit * Reason Onset Date Comments Order Request 05/30/2023 Encounter Details Date Type Department Care Team (Late st Contact Info) Description 05/30/2023 Telephone Vascular Surg [facility] [address] [place] [address] Des Rice MD [address] [place] [address] Order Request Allergies No known [...] Tablet Sublingual (Nitrostat)Indicati ons:Coronary artery disease involving [place] coronary artery of [place] heart without angina pectoris DISSOLVE ONE TABLET [...] :S/P angioplasty with stent,Coronary artery disease involving [place] coronary artery of [place] heart without angina pectoris Take 1 Tablet [...] stent 01/16/2003 Blindness, one eye 01/16/2003 FM [id number] DIS NEC 01/11/2002 documented as of this [...] (Adult) 09/08/2001 Pneumococcal Conjugate Vacci ne, 20-valent ([id number]) 01/11/2022 Pneumococcal Polysaccharide PPV23 (Pneumovax) 12/17/2004 Seasonal [...] encounter Miscellaneous Notes * Addendum Note - Reid Doshi CRNP - 05/31/2023 7:58 AM ESTAddended by: REID DOSHI on: 05/31/2023 07:58 AM Modules accepted: Orders * Telephone Encounter - Reid Doshi CRNP - 05/31/2023 7:58 AM EST Signed. thanks * Addendum Note - Ole Calvillo LPN [...] 05/30/2023 1:29 PM EST Follow up in with [facility] and Carotid duplex in two years. Carotid duplex to be completed one week prior to the appt Please place order for carotid duplex so patient can be scheduled rr documented in this encounter Plan of Treatment Upcoming Encounters Date Type Department Care Team (Late st Contact Info) Description 05/31/2023 3:15 PM EST Office Visit Hematology/Oncology [facility] [address] [facility] [place] [phone] Marcial Mayer MD 200 [facility] [place] [address] 06/19/2023 4:00 PM EDT Office Visit Family Practice [facility] [address] [place] [address] Bonilla Magdaleno MD [address] [place] [address] 10/25/2023 11:00 AM EDT Cardiac Studies Cardiac Studies, [facility] [address] [place] [address] Scheduled Orders Name Type Priority Associated Diagnoses Orde r Schedule VASC DUPLEX CAROTID BILAT Medical Imaging Routine Carotid atherosclerosis, bilateral Ordered: 05/31/2023 Health Maintenance Due Date Last Done Comments COVID-19 Vaccine (#1) 1940 Zoster Vaccines (1 of 2) 12/24/1954 DTaP,Tdap,and Td Vaccines (2 - Td or Tdap) 06/28/2022 06/28/2012, 09/08/2001 Influenza Vaccine (FLU shot) (#1) 2022 01/11/2022, 02/26/2021, 01/14/2020, Additional history exists Depression Screening 01/11/2023 01/11/2022 CKD PHOS USE SMARTSET 96683 03/29/202303/11, 02/17/2021, 10/09/2019, Additional history exists HbA1c 03/29/2023 03/29/2022, 01/08, 04/30/2018 Albumin/Creatinine Ratio 05/09/2024 05/09/2023 CKD HGB USE SMARTSET 92702 05/09/202405/09, 05/09/2023, 03/12/2023, Additional history exists Pneumococcal [...]
--- OUTSIDE RECORDS SUMMARY | 2023-06-01 12:55 | External Medical Summary ---
Author Name Unknown Address Unknown Organization K09:[facility] [address] [place] [address] Laboratory Report Ordering Provider Test Date Status JANETH CALERO 05/09/2023 10:55:42 Final Observation Date Value Abnormality Reference (Units ) Status BUN 05/09/2023 10:55:42 18 6-20 (mg/dL) Final Creatinine 05/09/2023 10:55:42 1.2 0.6-1.2 (mg/dL) Final Glomerular filtration rate/1.73 sq M.predicted [Volume Rate/Area] in Serum, Plasma or Blood by Creatinine-based formula (CKD-EPI) 05/09/2023 10:55:42 61 >=60 (mL/min) Final eGFR is calculated based on the CKD-EPI 2020 equation SODIUM 05/09/2023 10:55:42 139 135-146 (m mol/L) Final Potassium 05/09/2023 10:55:42 4.4 3.5-5.1 (m mol/L) Final Cl 05/09/2023 10:55:42 104 98-107 (mm ol/L) Final CO2 05/09/2023 10:55:42 25 22-32 (mmo l/L) Final Anion gap 05/09/2023 10:55:42 10 7-15 (mmol /L) Final Glucose 05/09/2023 10:55:42 111 70-120 (mg /dL) Final Albumin 05/09/2023 10:55:42 4.2 3.8-5.0 (g /dL) Final AST (Aspartate aminotransferase) 05/09/2023 10:55:42 26 10-50 (U/L) Final Alk Phos 05/09/2023 10:55:42 95 35-130 (U/ L) Final Bilirubin, Total 05/09/2023 10:55:42 0.6 <=1 .2 (mg/dL) Final Calcium 05/09/2023 10:55:42 9.9 8.4-10.2 ( mg/dL) Final Protein 05/09/2023 10:55:42 6.4 6.0-8.3 (g /dL) Final ALT (Alanine aminotransferase) 05/09/2023 10:55:42 21 10-50 (U/L) Final Performing Location [facility] [address] [place] [address]
--- OUTSIDE RECORDS SUMMARY | 2023-06-01 12:55 | External Medical Summary ---
Author Name Unknown Address Unknown Organization [facility]09[facility] [place] [place] [address] Laboratory Report Ordering Provider Test Date Status JANETH CALERO 05/09/2023 10:55:42 Final Observation Date Value Abnormality Reference (Units ) Status WBC, Total 05/09/2023 10:55:42 8.99 4.00-10.8 0 (K/uL) Final RBC 05/09/2023 10:55:42 3.68 4.50-5.25 (M/uL) Final Hemoglobin 05/09/2023 10:55:42 11.1 Below low normal 14 .0-16.8 (g/dL) Final HCT 05/09/2023 10:55:42 34.5 Below low normal 40. 0-48.4 (%) Final MCV 05/09/2023 10:55:42 93.8 82.0-99.5 (fL) Final MCH 05/09/2023 10:55:42 30.2 27.0-34.0 (pg) Final MCHC 05/09/2023 10:55:42 32.2 32.0-36.0 (g/dL) Final RDW 05/09/2023 10:55:42 14.7 11.5-15.5 (%) Final Platelets 05/09/2023 10:55:42 264 140-400 (K /uL) Final MPV 05/09/2023 10:55:42 10.4 6.6-11.1 ( fL) Final Performing Location [facility] [place] [place] [address]
--- OUTSIDE RECORDS SUMMARY | 2023-06-01 12:55 | External Medical Summary ---
Author Name Unknown Address Unknown Organization K01:[facility] [place] - [address] [place] [address] Laboratory Report Ordering Provider Test Date Status NAVNEET CERDA 05/09/2023 11:01:46 Final Normal: <30 mg/g creatinine< br/>High: 30-300 mg/g creatinine
Very High: >300 mg/g creatinine
Nephrotic: >2200 mg/g creatinine Observation Date Value Abnormality Reference (Units ) Status Albumin, Urine 05/09/2023 11:01:46 <1.20 (mg/dL) Final Creatinine, Urine 05/09/2023 11:01:46 139 (mg/dL) Final Albumin/Creatinine [Mass Ratio] in Urine 05/09/2023 11:01:46 <9 <30 (mg/g Creat) Final Performing Location [facility] - [address] [place] [address]
--- OUTSIDE RECORDS SUMMARY | 2023-06-01 12:55 | External Medical Summary | Summary of Care ---
Author Name Unknown Organization [facility] Address [address] [facility] [place] [address] Phone [phone] Care Team Providers Care Plating Tank Operator Apprentice Name Role Phone Unavailable Primary Care Provider Unavailabl e Encounter Details Date Type Department Care Team (Late st Contact Info) Description 05/09/2023 Telephone Hematology/Oncology [facility] [place] [address] [place] [address] Marcial Mayer MD 200 [facility] [place] [address] Allergies No known active allergiesdocumented as of this encounter (statuses as of 05/09/2023) Medications Medication Sig Dispensed Refills Start Date End Date Status Multiple Vitamins-Minerals (MULTIVITAMIN ADULT) TABS Take by mouth. 0 Active Sodium Chloride 1 GM Oral Tablet Take 1 Tablet by mouth in the morning. 0 01/05/2022 Active Clopidogrel Bisulfate 75 MG Oral Tablet (pLAVix) Take 1 tablet by mouth once daily 90 Tablet 3 05/06/2022 Active Atorvastatin Calcium 80 MG Oral Tablet (Lipitor)Indication s:Dyslipidemia, goal LDL below 100 Take 1 tablet by mouth once daily 90 Tablet 2 07/28/2022 Active Additional Information Patient not taking.Reported on 05/09/2023 Pantoprazole Sodium 40 MG Oral Tablet Delayed Release (Protonix)Indicatio ns:Gastroesophageal reflux disease without esophagitis TAKE 1 TABLET BY MOUTH IN THE MORNING 30 Tablet 2 03/29/2023 Active Famotidine 20 MG Oral Tablet (Pepcid)Indications :Gastroesophageal reflux disease without esophagitis TAKE 1 TABLET BY MOUTH ONCE DAILY NEEDED FOR HEART BURN 30 Tablet 0 04/13/2023 Active Metoprolol Succinate ER 25 MG Oral Tablet Extended Release 24 Hour (toPROL XL)Indications:CAD (coronary artery disease),HTN, goal below 140/90 Take 1/2 (one-half) tablet by mouth once daily 45 Tablet 0 04/17/2023 Active Nitroglycerin 0.4 MG Sublingual Tablet Sublingual (Nitrostat)Indicati ons:Coronary artery disease involving [place] coronary artery of jamul heart without angina pectoris DISSOLVE ONE TABLET UNDER THE TONGUE EVERY 5 MINUTES NEEDED FOR CHEST PAIN. DO NOT EXCEED A TOTAL OF 3 DOSES IN 15 MINUTES 25 Tablet 3 04/26/2023 Active documented as of this encounter (statuses as of 05/09/2023) Active Problems Problem Noted Date Diagnosed Date [...] stent 01/16/2003 Blindness, one eye 01/16/2003 FM [id number] DIS NEC 01/11/2002 documented as of this encounter (statuses as of 05/09/2023) Resolved Problems Problem Noted Date Diagnosed Date [...] as of this encounter (statuses as of 05/09/2023) Immunizations Name Administration Dates Next Due Diptheria/Tetanus (Adult) 09/08/2001 Pneumococcal Conjugate Vacci ne, 20-valent ([id number]) 01/11/2022 Seasonal Influenza, QUAD, wi th Preserv, [...] encounter Miscellaneous Notes * Telephone Encounter - Gail Parker OSA - 05/09/2023 10:59 AM EST PET scan scheduled for 05/22 at 12:45 at [facility] Pt is aware and was given prep instructions. documented in this encounter Plan of Treatment Upcoming Encounters Date Type Department Care Team (Late st Contact Info) Description 05/22/2023 11:45 AM EST Imaging Radiology, [facility] [address] [place] [address] 05/31/2023 3:15 PM EST Office Visit Hematology/On[facility] [address] [place] [address] Marcial Mayer MD [address] [place] [address] 06/19/2023 4:00 PM EDT Office Visit Family Practice [facility] [address] [place] [address] Bonilla Magdaleno MD [address] [place] [address] 10/25/2023 11:00 AM EDT Cardiac Studies Cardiac Studies, [facility], [address] [place] [address] Health Maintenance Due Date Last Done Comments COVID-19 Vaccine (#1) 1940 Albumin/Creatinine Ratio 1954 Zoster Vaccines (1 of 2) 12/24/1954 DTaP,Tdap,and Td Vaccines (2 - Td or Tdap) 06/28/2022 06/28/2012, 09/08/2001 Influenza Vaccine (FLU shot) (#1) 2022 01/11/2022, 02/26/2021, 01/14/2020, Additional history exists Depression Screening 01/11/2023 01/11/2022 CKD PHOS USE SMARTSET 55093 03/29/202303/11, 02/17/2021, 10/09/2019, Additional history exists HbA1c 03/29/2023 03/29/2022, 01/08, 04/30/2018 CKD HGB USE SMARTSET 38466 03/12/202405/09, 05/09/2023, 03/12/2023, Additional history exists Pneumococcal Vaccine: [...]
--- OUTSIDE RECORDS SUMMARY | 2023-06-01 12:55 | External Medical Summary | Summary of Care ---
Author Name Unknown Organization [facility] Address [address] [facility] [place] [address] Phone [phone] Care Team Providers Care Stock Controller Name Role Phone Unavailable Primary Care Provider Unavailabl e Reason for Visit * Reason Comments eRx-Medication Refill Encounter Details Date Type Department Care Team (Late st Contact Info) Description 04/12/2023 Refill Family Practice [facility] [address] [place] [address] Libby Larry DO [address] [place] [address] Gastroesophageal reflux disease without esophagitis Allergies No known active allergiesdocumented as of this encounter (statuses as of 04/13/2023) Medications Medication Sig Dispensed Refills Start Date End Date Status Multiple Vitamins-Minerals (MULTIVITAMIN ADULT) TABS Take by mouth. 0 Active Nitroglycerin 0.4 MG Sublingual Tablet Sublingual (Nitrostat)Indica tions:Coronary artery disease involving [place] coronary artery of [place] heart without angina pectoris DISSOLVE ONE TABLET [...] 03/29/2023 Active Famotidine 20 MG Oral Tablet (Pepcid)Indicatio ns:Gastroesophage al reflux disease without esophagitis TAKE 1 TABLET BY MOUTH ONCE DAILY NEEDED FOR HEART BURN 30 Tablet 0 04/13/2023 Active Famotidine 20 MG Oral Tablet (Pepcid)Indicatio ns:Gastroesophage al reflux disease without esophagitis TAKE 1 TABLET BY MOUTH ONCE DAILY NEEDED FOR HEART BURN 30 Tablet 0 01/26/2023 04/13/2023 Discontinued documented as of this encounter (statuses as of 04/13/2023) Active Problems Problem Noted Date Diagnosed Date Lung consolidation 01/12/2022 Vascular dementia without [...] aortic aneurysm) 11/01/2009 ENLARGED AORTIC ROOT 10/08/2009 DYSLIPIDEMIA, GOAL LDL BELOW 100 03/26/2009 Overview: Per Lipid Taxonomy. ADVANCE DIRECTIVE INFORMATION 11/30/2004 Overview: No, Advance Directive brochure given to patient. S/P angioplasty with stent 01/16/2003 Blindness, one eye 01/16/2003 FM [id number] DIS NEC 01/11/2002 documented as of this encounter (statuses as of 04/13/2023) Resolved Problems Problem Noted Date Diagnosed Date [...] as of this encounter (statuses as of 04/13/2023) Immunizations Name Administration Dates Next Due Diptheria/Tetanus (Adult) 09/08/2001 Pneumococcal Conjugate Vacci ne, 20-valent ([id number]) 01/11/2022 Seasonal Influenza, QUAD, wi th Preserv, [...] encounter Miscellaneous Notes * Telephone Encounter - Libby Larry DO - 04/13/2023 1:41 PM ESTSigned Prescriptions: Disp Refills Famotidine 20 MG Oral Tablet (Pepcid) 30 Tab*0 Sig: TAKE 1 TABLET BY MOUTH ONCE DAILY NEEDED FOR HEART BURN Authorizing Provider: LIBBY LARRY * Telephone Encounter - Janelle Mcnally LPN - 04/13/2023 1:41 PM ESTPending Prescriptions: Disp Refills Famotidine 20 MG Oral Tablet 30 Tab*0 Sig: TAKE 1 TABLET BY MOUTH ONCE DAILY NEEDED FOR HEART BURN * Telephone Encounter - Angela Henderson [facility] - 04/13/2023 1:03 PM ESTPending Prescriptions: Disp Refills Famotidine 20 MG Oral Tablet 30 Tab*0 Sig: TAKE 1 TABLET BY MOUTH ONCE DAILY NEEDED FOR HEART BURN * Telephone Encounter - Angela Henderson [facility] - 04/13/2023 1:02 PM EST Patient has no PCP under whom to authorize refills. Please approve if appropriate. ThanksAngela Clinical Pharmacist [facility] ([facility]) (Formerly Telepharm[facility]) [phone] 04/13/2023, 1:02 PM * Telephone Encounter - Angela Henderson RP - 04/13/2023 1:02 PM EST Did you pend patient's preferred pharmacy and medication before forwarding?yes Pharmacy: [facility] [address] [place] [address] Pending Prescriptions: Disp Refills Famotidine 20 MG Oral Tablet (Pepcid) [Ph*30 Tab*0 Sig: TAKE 1 TABLET BY MOUTH ONCE DAILY NEEDED FOR HEART BURN Last Visit: 03/20/2023 (in office), 02/17/2022 (telemedicine) Next Visit: 06/19/2023 If no future appointments scheduled, and last appointment is greater than a year ago, please schedule patient for a follow-up appointment Last date the medication was ordered: 01/26/23 Is this request for a controlled substance?No Urine Drug Screen:No results found for this or any previous visit. Patient Phone Numbers Labs: Lab Results Component Value Date/Time CREAT 1.4 (H) 03/12/2023 05:40 AM CREAT 1.3 (H) 10/09/2019 10:02 AM POTASSIUM 4.4 03/12/2023 05:40 AM POTASSIUM 4.3 10/09/2019 10:02 AM TSH 5.24 (H) 03/29/2022 12:01 PM TSH 5.23 (H) 03/27/2019 09:51 AM LDLCALC 60 08/28/2017 08:33 AM LDLDIRECT 62 02/17/2021 02:28 PM LDLDIRECT 84 09/18/2018 09:17 AM ALT 20 03/29/2022 12:01 PM ALT 23 04/25/2019 07:51 AM HGBA1C 4.9 03/29/2022 12:01 PM HGBA1C 5.6 04/30/2018 03:06 PM documented in this encounter Plan of Treatment Upcoming Encounters Date Type Department Care Team (Late st Contact Info) Description 04/26/2023 10:00 AM EST Office Visit Cardiology, [facility] [address] [place] [address] Nica Benitez PA-C [address] [place] [address] 05/31/2023 3:15 PM EST Office Visit [facility]ematology/On[facility] [address] [place] [address] Marcial Mayer MD [address] [facility] [address] [place] [address] 06/19/2023 4:00 PM EDT Office Visit Family Practice [facility] [address] [place] [address] Bonilla Magdaleno MD [address] [place] [address] Health Maintenance Due Date Last Done Comments COVID-19 Vaccine (#1) 1940 Albumin/Creatinine Ratio 1954 Zoster Vaccines (1 of 2) 12/24/1954 DTaP,Tdap,and Td Vaccines (2 - Td or Tdap) 06/28/2022 06/28/2012, 09/08/2001 Influenza Vaccine (FLU shot) (#1) 2022 01/11/2022, 02/26/2021, 01/14/2020, Additional history exists Depression Screening 01/11/2023 01/11/2022 CKD PHOS USE SMARTSET 35967 03/29/202303/11, 02/17/2021, 10/09/2019, Additional history exists HbA1c 03/29/2023 03/29/2022, 01/08, 04/30/2018 CKD HGB USE SMARTSET 61530 03/12/202403/12, 03/05/2023, 03/29/2022, Additional history exists Pneumococcal Vaccine: 65+ Years [...]
--- OUTSIDE RECORDS SUMMARY | 2023-06-01 12:55 | External Medical Summary ---
Author Name Unknown Address Unknown Organization K01:[facility] [address] [place] [address] Laboratory Report Ordering Provider Test Date Status JANETH CALERO 05/09/2023 10:55:42 Final Observation Date Value Abnormality Reference (Units ) Status [facility] 05/09/2023 10:55:42 264 Above high normal <= 250 (U/L) Final Result may be falsely elevat ed due to hemolysis. Performing Location [facility] - [address] [place] [address]
--- OUTSIDE RECORDS SUMMARY | 2023-06-01 12:55 | External Medical Summary | Summary of Care ---
Author Name Unknown Organization [facility] Address [address] [facility] [place] [address] Phone [phone] Care Team Providers Care Half Sole Fitter Name Role Phone Unavailable Primary Care Provider Unavailabl e Reason for Visit * Reason Comments Outpatient Testing Encounter Details Date Type Department Care Team (Late st Contact Info) Description 05/09/2023 11:00 AM EST Laboratory Laboratory [facility] [place] [address] [place] [address] [facility] 200 [facility] [place] [address] Routine medical exam; Encounter for long-term (current) use of medications; Chronic kidney disease, stage 3a (HCC) Allergies No known active allergiesdocumented as [...] Tablet Sublingual (Nitrostat)Indicati ons:Coronary artery disease involving [place] coronary artery of [place] heart without angina pectoris DISSOLVE ONE TABLET [...] stent 01/16/2003 Blindness, one eye 01/16/2003 FM [id number] DIS NEC 01/11/2002 documented as of this [...] (Adult) 09/08/2001 Pneumococcal Conjugate Vacci ne, 20-valent ([id number]) 01/11/2022 Pneumococcal Polysaccharide PPV23 (Pneumovax) 12/17/2004 Seasonal [...] Description 05/22/2023 11:45 AM EST Imaging Radiology, [facility] [address] [place] [address] 05/31/2023 3:15 PM EST Office Visit Hematology/Oncology [facility] [address] [place] [address] Marcial Mayer MD 200 [facility] [place] [address] 06/19/2023 4:00 PM EDT Office Visit Family Practice [facility] [address] [place] [address] Bonilla Magdaleno MD [address] [place] [address] 10/25/2023 11:00 AM EDT Cardiac Studies Cardiac Studies, [facility] [address] [place] [address] Pending Results Name Type Priority Associated Diagnoses Date /Time VITAMIN B12 Lab Routine Routine medical exam Encounter for long-term (current) use of medications 05/09/2023 10:55 AM EST ALBUMIN / CREATININE RATIO, URINE Lab Routine Routine medical exam Chronic kidney disease, stage 3a (HCC) 05/09/2023 11:01 AM EST Health Maintenance Due Date Last Done Comments COVID-19 Vaccine (#1) 1940 Albumin/Creatinine Ratio 1954 Zoster Vaccines (1 of 2) 12/24/1955 DTaP,Tdap,and Td Vaccines (2 - Td or Tdap) 06/28/2022 06/28/2012, 09/08/2001 Influenza Vaccine (FLU shot) (#1) 2022 01/11/2022, 02/26/2021, 01/14/2020, Additional history exists Depression Screening 01/11/2023 01/11/2022 CKD PHOS USE SMARTSET 49584 03/29/202303/11, 02/17/2021, 10/09/2019, Additional history exists HbA1c 03/29/2023 03/29/2022, 01/08, 04/30/2018 CKD HGB USE SMARTSET 63349 03/12/202405/09, 05/09/2023, 03/12/2023, Additional history exists Pneumococcal [...] as of this encounter Visit Diagnoses Diagnosis Routine medical exam Routine general medical examination at a health care facility Encounter for long-term (current) use of medications Encounter for long-term (current) use of other medications Chronic kidney disease, stage 3a (HCC) documented in this encounter
--- OUTSIDE RECORDS SUMMARY | 2023-06-01 12:55 | External Medical Summary | Summary of Care ---
Author Name Unknown Organization [facility] Address [address] [place] [address] Phone [phone] Care Team Providers Care Assistant Vice President Name Role Phone Unavailable Primary Care Provider Unavailabl e Reason for Visit * Reason Onset Date Comments STAIR Lung Nodule 04/18/2023 Encounter Details Date Type Department Care Team (Late st Contact Info) Description 04/18/2023 Telephone STAIR LUNG NODULE [address] [place] [address] Santa Law CRNP [address] [place] [address] STAIR Lung Nodule Allergies No known active allergiesdocumented as of this encounter (statuses as of 04/24/2023) Medications Medication Sig Dispensed Refills Start Date [...] Release (Protonix)Indications :Gastroesophageal reflux disease without esophagitis TAKE 1 TABLET BY MOUTH IN THE MORNING 30 Tablet 2 03/29/2023 Active Famotidine 20 MG Oral Tablet (Pepcid)Indications:G astroesophageal reflux disease without esophagitis TAKE 1 TABLET BY MOUTH ONCE DAILY NEEDED FOR HEART BURN 30 Tablet 0 04/13/2023 Active Metoprolol Succinate ER 25 MG Oral Tablet Extended Release 24 Hour (toPROL XL)Indications:CAD (coronary artery disease),HTN, goal below 140/90 Take 1/2 (one-half) tablet by mouth once daily 45 Tablet 0 04/17/2023 Active documented as of this encounter (statuses as of 04/24/2023) Active Problems Problem Noted Date Diagnosed Date [...] stent 01/16/2003 Blindness, one eye 01/16/2003 FM [id number] DIS NEC 01/11/2002 documented as of this encounter (statuses as of 04/24/2023) Resolved Problems Problem Noted Date Diagnosed Date [...] as of this encounter (statuses as of 04/24/2023) Immunizations Name Administration Dates Next Due Diptheria/Tetanus (Adult) 09/08/2001 Pneumococcal Conjugate Vacci ne, 20-valent ([id number]) 01/11/2022 Seasonal Influenza, QUAD, wi th Preserv, [...] encounter Miscellaneous Notes * Telephone Encounter - Marcial Mayer MD - 04/24/2023 4:22 PM EST - biopsy from the right hilar lymph node, subcarinal and 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 Waiting for FISH result. I would like to see him in the clinic (next 2 to 3 weeks.). * Telephone Encounter - Santa Law CRNP - 04/18/2023 1:17 PM EST Called daughter Teressa with biopsy results. A. Lymph Node 11R, Right Hilar, EBUS transbronchial fine needle aspiration: Adequacy: Satisfactory for evaluation. Category: Atypical. Interpretation: Atypical lymphocytes most compatible with B cell lymphoma. See Note. B. Lymph node 7, Subcarinal, EBUS transbronchial fine needle aspiration: Adequacy: Satisfactory for evaluation. Category: Malignant. Interpretation: B-cell lymphoma with increased Ki-67 index, consistent with persistent or relapsed B cell lymphoma. Pending ancillary studies (FISH large B cell lymphoma panel) and an addendum reportwill follow. See Note. C. Lymph Node 4L, Left Paratracheal, EBUS transbronchial fine needle aspiration: Adequacy: Satisfactory for evaluation. Category: Atypical. Interpretation: Atypical lymphocytes, most compatible with B cell lymphoma. See Note. Scheduled to see Dr. Mayer in May. Dr. Ari Gannon is wondering if you need to see Fawad sooner. Please have your staff reach out if you have a sooner appointment. documented in this encounter Plan of Treatment Upcoming Encounters Date Type Department Care Team (Late st Contact Info) Description 04/26/2023 10:00 AM EST Office Visit Cardiology, [facility] [address] [place] [address] Nica Benitez PA-C [address] [place] [address] 05/31/2023 3:15 PM EST Office Visit Hematology/Oncology [facility] 200 [facility] [place] [address] Marcial Mayer MD 200 [facility] [place] [address] 06/19/2023 4:00 PM EDT Office Visit Family Practice [facility] [address] [place] [address] Bonilla Magdaleno MD 132 [facility] [place] [address] Health Maintenance Due Date Last Done Comments COVID-19 Vaccine (#1) 1940 Albumin/Creatinine Ratio 1954 Zoster Vaccines (1 of 2) 12/24/1955 DTaP,Tdap,and Td Vaccines (2 - Td or Tdap) 06/28/2022 06/28/2012, 09/08/2001 Influenza Vaccine (FLU shot) (#1) 2022 01/11/2022, 02/26/2021, 01/14/2020, Additional history exists Depression Screening 01/11/2023 01/11/2022 CKD PHOS USE SMARTSET 19851 03/29/2023 12/, 02/17/2021, 10/09/2019, Additional history exists HbA1c 03/29/2023 03/29/2022, 01/08, 04/30/2018 CKD HGB USE SMARTSET 79924 03/12/202403/12, 03/05/2023, 03/29/2022, Additional history exists Pneumococcal [...]
--- OUTSIDE RECORDS SUMMARY | 2023-06-01 12:55 | External Medical Summary | Summary of Care ---
Author Name Unknown Organization [facility] Address [address] [facility] [place] [address] Phone [phone] Care Team Providers Care Paving Plant Operator Name Role Phone Joaquin Ramirez DO Primary Care Provider [phone] Reason for Visit * Reason Comments Follow Up Encounter Details Date Type Department Care Team (Late st Contact Info) Description 02/17/2022 1:40 PM EST Telemedicine Family Practice [facility] 132 [facility] [place] [address] Joaquin Ramirez DO [address] [place] [address] Mass of upper lobe of right lung*; Chronic obstructive pulmonary disease, unspecified COPD type (HCC); Coronary artery disease involving [place] coronary artery of [place] heart without angina pectoris; 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 0 Active Nitroglycerin 0.4 MG Sublingual Tablet Sublingual (Nitrostat)Indica tions:Coronary artery disease involving [place] coronary artery of [place] heart without angina pectoris DISSOLVE ONE TABLET UNDER THE TONGUE EVERY 5 MINUTES NEEDED FOR CHEST PAIN. DO NOT EXCEED A TOTAL OF 3 DOSES IN 15 MINUTES 25 Tablet 3 09/23/2021 Active Sodium Chloride 1 GM Oral Tablet Take 1 Tablet by mouth in the morning. 0 01/05/2022 Active Metoprolol Succinate ER 25 [...] as of this encounter (statuses as of 04/25/2023) Active Problems Problem Noted Date Diagnosed Date [...] CKD protocol Dementia without behavioral disturbance 09/06/19 Benign hypertension with stage 3a chronic kidney [...] stent 01/16/2003 Blindness, one eye 01/16/2003 FM [id number] DIS NEC 01/11/2002 documented as of this encounter (statuses as of 04/25/2023) Resolved Problems Problem Noted Date Diagnosed Date [...] as of this encounter (statuses as of 04/25/2023) Immunizations Name Administration Dates Next Due Diptheria/Tetanus (Adult) 09/08/2001 Pneumococcal Conjugate Vacci ne, 20-valent ([id number]) 01/11/2022 Pneumococcal Polysaccharide PPV23 (Pneumovax) 12/17/2004 Seasonal [...] of this encounter Progress Notes * Joaquin Ramirez DO - 02/17/2022 1:39 PM EST Images from the original note were not included. History of Present Illness aFwad Brunner is a 86 year old male [...] type (HCC) Stable Coronary artery disease involving [place] coronary artery of [place] heart without angina pectoris Continue present medication [...] PHOSPHORUS; Future Gastroesophageal reflux disease without esophagitis Swain high-fiber diet - Famotidine 20 MG Oral Tablet (Pepcid); Take 1 Tablet (20 mg) by mouth 2 times a day as needed forHeartburn. Prediabetes HEMOGLOBIN A1C; Future Reduced caloric intake diabetic diet and exercise History of 2019 novel coronavirus disease (COVID-19) Wrap-Up After connecting to the patient via telephone, the patient was identified by name and date of . Patient was then informed that this was a telephone call only visit. The patient agreed to participate. Visit Disposition: Routine follow-up Total call duration was 30 minutes. Time: I spent a total of 30-39 [...] 04/26/2023 10:00 AM EST Office Visit Cardiology, [address] [place] [address] Nica Benitez PA-C [address] [place] [address] 05/09/2023 10:15 AM EST Office Visit Hematology/Oncology [facility] [address] [place] [address] Marcial Mayer MD 200 [facility] [place] [address] 05/31/2023 3:15 PM EST Office Visit Hematology/Oncology [facility] [address] [place] [address] Marcial Mayer MD 200 [facility] [place] [address] 06/19/2023 4:00 PM EDT Office Visit Family Practice [facility] [address] [place] [address] Bonilla Magdaleno MD 132 [facility] [place] [address] Scheduled Orders Name Type Priority Associated Diagnoses [...] Screening 01/11/2023 01/11/2022 CKD PHOS USE SMARTSET 16679 03/29/2023 12, 02/17/2021, 10/09/2019, Additional history exists HbA1c 03/29/2023 03/29/2022, 01/08, 04/30/2018 CKD HGB USE SMARTSET 30869 03/12/202403/12, 03/05/2023, 03/29/2022, Additional history exists Pneumococcal [...] Results * PHOSPHORUS (03/29/2022 12:01 PM EST) Phosphorus 3.5 2.5 - 4.8 mg/dL 03/29/2022 7:58 PM EST [facility] Blood Venous blood specimen / Unknown Venipuncture / Unknown 03/29/2022 12:01 PM EST 03/29/2022 12:01 PM EST Joaquin Ramirez DO LAB BLOOD ORDERABLES LAB[facility]ATORY [facility] [address] [place] [address] * HEMOGLOBIN A1C (03/29/2022 12:01 PM EST) Hemoglobin A1C 4.9 4.0 - 5.6 % 03/29/2022 4:50 PM EST [facility] Comment:The use of HbA1c to monitor glycemic status is based on normal hemoglobin and HbA composition. This test should not be used in patients with abnormal hemoglobin that affects the half life of the red blood cell or the in vivo glycation rates. 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
--- OUTSIDE RECORDS SUMMARY | 2023-06-01 12:55 | External Medical Summary | Summary of Care ---
Author Name Unknown Organization [facility] Address [address] [place] [address] Phone [phone] Care Team Providers Care Shear Helper Name Role Phone Unavailable Primary Care Provider Unavailabl e Reason for Visit * Reason Onset Date Comments STAIR Lung Nodule 04/18/2023 Encounter Details Date Type Department Care Team (Late st Contact Info) Description 04/18/2023 Telephone STAIR LUNG NODULE [address] [place] [address] Santa Law CRNP [address] [place] [address] STAIR Lung Nodule Allergies No known active allergiesdocumented as of this encounter (statuses as of 04/25/2023) Medications Medication Sig Dispensed Refills Start Date End Date Status Multiple Vitamins-Minerals (MULTIVITAMIN ADULT) TABS Take by mouth. 0 Active Nitroglycerin 0.4 MG Sublingual Tablet Sublingual (Nitrostat)Indication s:Coronary artery disease involving [place] coronary artery of [place] heart without angina pectoris DISSOLVE ONE TABLET [...] stent 01/16/2003 Blindness, one eye 01/16/2003 FM [id number] DIS NEC 01/11/2002 documented as of this [...] (Adult) 09/08/2001 Pneumococcal Conjugate Vacci ne, 20-valent ([id number]) 01/11/2022 Pneumococcal Polysaccharide PPV23 (Pneumovax) 12/17/2004 Seasonal [...] encounter Miscellaneous Notes * Telephone Encounter - Page Gilman OSA - 04/25/2023 9:46 AM EST Spoke with and ok'd for an appt to see patient on 05/09/23 @ 10:15am. Called and spoke to patients daughter Teressa and she is aware of the appt. * Telephone Encounter - Marcial Mayer MD [...] 04/26/2023 10:00 AM EST Office Visit [facility], [facility] [place] [address] Nica Benitez PA-C [address] [place] [address] 05/09/2023 10:15 AM EST Office Visit Hematology/Oncology [facility] [address] [place] [address] Marcial Mayer MD 200 [facility] [place] [address] 05/31/2023 3:15 PM EST Office Visit Hematology/Oncology [facility] [place] [address] [place] [address] Marcial Mayer MD 200 [facility] [place] [address] 06/19/2023 4:00 PM EDT Office Visit Family Practice [facility] [address] [place] [address] Bonilla Magdaleno MD [address] [place] [address] Health Maintenance Due Date Last Done Comments COVID-19 Vaccine (#1) 1940 Albumin/Creatinine Ratio 1954 Zoster Vaccines (1 of 2) 12/24/1955 DTaP,Tdap,and Td Vaccines (2 - Td or Tdap) 06/28/2022 06/28/2012, 09/08/2001 Influenza Vaccine (FLU shot) (#1) 2022 01/11/2022, 02/26/2021, 01/14/2020, Additional history exists Depression Screening 01/11/2023 01/11/2022 CKD PHOS USE SMARTSET 07670 03/29/202303/11, 02/17/2021, 10/09/2019, Additional history exists HbA1c 03/29/2023 03/29/2022, 01/08, 04/30/2018 CKD HGB USE SMARTSET 64330 03/12/202403/12, 03/05/2023, 03/29/2022, Additional history exists Pneumococcal [...]
--- OUTSIDE RECORDS SUMMARY | 2023-06-01 12:55 | External Medical Summary ---
Author Name Unknown Address Unknown Organization K01:LABORATORY [facility] - [address] [place] [address] Laboratory Report Ordering Provider Test Date Status NAVNEET CERDA 05/09/2023 10:55:42 Final Observation Date Value Abnormality Reference (Units ) Status Vitamin B12 05/09/2023 10:55:42 150 [id number] (pg/mL) Final Performing Location [facility] - [address] [place] [place] [address]
--- OUTSIDE RECORDS SUMMARY | 2023-06-01 12:55 | External Medical Summary | Summary of Care ---
Author Name Unknown Organization [facility] Address [address] [facility] [place] [address] Phone [phone] Care Team Providers Care Nurse Special Name Role Phone Unavailable Primary Care Provider Unavailabl e Reason for Visit * Reason Comments Outpatient Testing Encounter Details Date Type Department Care Team (Late st Contact Info) Description 05/09/2023 11:00 AM EST Laboratory Laboratory [facility] [place] [address] [place] [address] [facility] 200 [facility] [place] [address] Routine medical exam; Encounter for long-term (current) [...] Tablet Sublingual (Nitrostat)Indicati ons:Coronary artery disease involving [place] coronary artery of [place] heart without angina pectoris DISSOLVE ONE TABLET [...] stent 01/16/2003 Blindness, one eye 01/16/2003 FM [id number] DIS NEC 01/11/2002 documented as of this [...] (Adult) 09/08/2001 Pneumococcal Conjugate Vacci ne, 20-valent ([id number]) 01/11/2022 Pneumococcal Polysaccharide PPV23 (Pneumovax) 12/17/2004 Seasonal [...] Description 05/22/2023 11:45 AM EST Imaging Radiology, [facility] [address] [place] [address] 05/31/2023 3:15 PM EST Office [facility] [address] [place] [address] Marcial Mayer MD 200 [facility] [place] [address] 06/19/2023 4:00 PM EDT Office Visit Family Practice [facility] [address] [place] [address] Bonilla Magdaleno MD [address] [place] [address] 10/25/2023 11:00 AM EDT Cardiac Studies Cardiac Studies, [facility] [address] [place] [address] Pending Results Name Type Priority Associated Diagnoses [...] Screening 01/11/2023 01/11/2022 CKD PHOS USE SMARTSET 79941 03/29/202303/11, 02/17/2021, 10/09/2019, Additional history exists HbA1c 03/29/2023 03/29/2022, 01/08, 04/30/2018 CKD HGB USE SMARTSET 85897 03/12/202403/12, 03/05/2023, 03/29/2022, Additional history exists Pneumococcal [...]
--- OUTSIDE RECORDS SUMMARY | 2023-06-01 12:55 | External Medical Summary | Summary of Care ---
Author Name Unknown Organization [facility] Address [address] [facility] [place] [address] Phone [phone] Care Team Providers Care Globe Tester Name Role Phone Unavailable Primary Care Provider Unavailabl e Reason for Referral * Precert (Within 10 days (routine)) - Pending Review Specialty Diagnoses / Procedures Referred By Contruthie t Referred To Contact Cardiac Studies Diagnoses Coronary artery disease involving nikolski coronary artery of nikolski heart without angina pectoris Nonrheumatic aortic valve stenosis Aneurysm of ascending aorta without rupture (HCC) Procedures ECHO, COMPLETE (2D), TRANS-THORACIC Nica Benitez PA-C [address] [place] [address] Referral ID Status Reason Start Date Expiration Date Visits Requested Visits Authorized [id number] Pending Review Precert 10/25/2023 999 999 Reason for Visit * Reason Comments Follow Up Encounter Details Date Type Department Care Team (Late st Contact Info) Description 04/26/2023 10:00 AM EST Office Visit Cardiology, [facility] [address] [place] [address] Nica Benitez PA-C [address] [place] [address] Coronary artery disease involving nikolski coronary artery of nik[place] heart without angina pectoris*; Nonrheumatic aortic valve stenosis; Aneurysm of ascending aorta without rupture (HCC); Dyslipidemia, goal LDL below 70; Hypertension goal BP (blood pressure) < 130/80 Allergies No known active allergiesdocumented as of this encounter (statuses as of 04/26/2023) Medications Medication Sig Dispensed Refills Start Date End Date Status Multiple Vitamins-Minerals (MULTIVITAMIN ADULT) TABS Take by mouth. 0 Active Sodium Chloride 1 GM Oral Tablet Take 1 Tablet by mouth in the morning. 0 01/05/2022 Active Clopidogrel Bisulfate 75 MG Oral Tablet (pLAVix) Take 1 tablet by mouth once daily 90 Tablet 3 05/06/2022 Active Atorvastatin Calcium 80 MG Oral Tablet (Lipitor)Indicatio ns:Dyslipidemia, goal LDL below 100 Take 1 tablet by mouth once daily 90 Tablet 2 07/28/2022 Active Pantoprazole Sodium 40 MG Oral Tablet Delayed Release (Protonix)Indicati ons:Gastroesophage al reflux disease without esophagitis TAKE 1 TABLET BY MOUTH IN THE MORNING 30 Tablet 2 03/29/2023 Active Famotidine 20 MG Oral Tablet (Pepcid)Indication s:Gastroesophageal reflux disease without esophagitis TAKE 1 TABLET BY MOUTH ONCE DAILY NEEDED FOR HEART BURN 30 Tablet 0 04/13/2023 Active Metoprolol Succinate ER 25 MG Oral Tablet Extended Release 24 Hour (toPROL XL)Indications:CAD (coronary artery disease),HTN, goal below 140/90 Take 1/2 (one-half) tablet by mouth once daily 45 Tablet 0 04/17/2023 Active Nitroglycerin 0.4 MG Sublingual Tablet Sublingual (Nitrostat)Indicat ions:Coronary artery disease involving nikolski coronary artery of nik[place] heart without angina pectoris DISSOLVE ONE TABLET UNDER THE TONGUE EVERY 5 MINUTES NEEDED FOR CHEST PAIN. DO NOT EXCEED A TOTAL OF 3 DOSES IN 15 MINUTES 25 Tablet 3 04/26/2023 Active Nitroglycerin 0.4 MG Sublingual Tablet Sublingual (Nitrostat)Indicat ions:Coronary artery disease involving nikolski coronary artery of nikolski heart without angina pectoris DISSOLVE ONE TABLET UNDER THE TONGUE EVERY 5 MINUTES NEEDED FOR CHEST PAIN. DO NOT EXCEED A TOTAL OF 3 DOSES IN 15 MINUTES 25 Tablet 3 09/23/2021 04/26/2023 Discontinued (Refill) documented as of this encounter (statuses as of 04/26/2023) Active Problems Problem Noted Date Diagnosed Date [...] stent 01/16/2003 Blindness, one eye 01/16/2003 FM [id number] DIS NEC 01/11/2002 documented as of this encounter (statuses as of 04/26/2023) Resolved Problems Problem Noted Date Diagnosed Date [...] as of this encounter (statuses as of 04/26/2023) Immunizations Name Administration Dates Next Due Diptheria/Tetanus (Adult) 09/08/2001 Pneumococcal Conjugate Vacci ne, 20-valent ([id number]) 01/11/2022 Seasonal Influenza, QUAD, wi th Preserv, [...] on file documented as of this encounter Last Filed Vital Signs Vital Sign Reading Time Taken Comments Blood Pressure 102/76 04/26/2023 10:06 AM EST Pulse 46 04/26/2023 10:06 AM EST Temperature - - Respiratory Rate 14 04/26/2023 10:06 AM EST Oxygen Saturation - - Inhaled Oxygen Concentration - - Weight 70.8 kg (156 lb) 04/26/2023 10:06 AM EST Height - - Body Mass Index 23.72 05/16/2022 12:33 PM EST documented in this encounter Progress Notes * Nica Benitez PA-C - 04/26/2023 10:11 AM EST 04/26/2023 Cardiology F/U: HPI: Patient is an 87-year-old male here today for routine cardiology follow-up. Last clinic evaluation approximately 1 year ago. Former patient of Dr. Veloz. History includes: 1. Coronary artery disease status post PCI to the LAD in 2000 along with POBA (plain old balloon angioplasty) to the first diagonal. 2. GERD. 3. Ascending aortic aneurysm measuring 4.7 cm 4. Hypertension. 5. Hyperlipidemia. 6. Left eye blindness. 7. Mild aortic stenosis 8 B Cell Lymphoma 9. Dementia Patient accompanied by daughter who provides a lot of the history. Since last visit patient was admitted to [facility] in Feb 2023 with SOB, weakness, and falls. Diagnosed with pneumonia. Chest CT also demonstrating concerning density of the right upper lobe concerning for CA. 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 He has upcoming appt with oncology later this month. Patient voices no concerns today. Denies chest pain or dyspnea. No palpitations. Taking meds as prescribed. No chest pain, shortness of breath, palpitations, dizziness, syncope or near syncope. No orthopnea,PND, or increased lower extremity edema. No fever, chills, cough, hematochezia, melena, or hemoptysis. Patient skinned left sigala getting in the truck on way here. Small laceration Review of Systems: Pertinent positives as per HPI, comprehensive all system review otherwise negative. Patient Active Problem List Diagnosis Code FM [id number] DIS NEC V18.1 S/P angioplasty with stent Z95.820 Blindness, one eye H54.40 ADVANCE DIRECTIVE INFORMATION DYSLIPIDEMIA, GOAL LDL BELOW 100 E78.5 ENLARGED AORTIC ROOT I77.89 AAA (abdominal aortic aneurysm) (HCC) I71.40 Thoracic aortic aneurysm (HCC) I71.20 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 (HCC) C85.93 Encounter for antineoplastic chemotherapy Z51.11 CAD (coronary artery disease) I25.10 Cholelithiasis K80.20 Cerebrovascular disease, arteriosclerotic, post-stroke I67.2, Z86.73 Carotid atherosclerosis, bilateral I65.23 Elevated TSH R79.89 Memory loss R41.3 Benign hypertension with stage 3a chronic kidney disease (HCC) I12.9, N18.31 Dementia without behavioral disturbance (HCC) F03.90 Chronic kidney disease, stage 3a (HCC) N18.31 Prediabetes R73.03 Vascular dementia without behavioral disturbance (HCC) F01.50 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 GI cancer- age 72 Neurological Disorder Sister Brain abscess Dementia Sister Heart disease Sister Other (Unknown cause) Sister No Known Problems Sister No Known Problems Sister No Known Problems Sister No Known Problems Sister Other (Stillborn) Brother No Known Problems Brother No Known Problems Brother No Known Problems Brother Past Surgical History: Procedure Laterality Date BRONCHOSCOPY, DIAGNOSTIC N/A 04/12/2023 BRONCHOSCOPY DIAGNOSTIC WITH OR WITHOUT WASHING performed by Kenyetta Henry MD at [facility]OSCOPY [facility] COLONOSCOPY, DIAGNOSTIC (RECTUM) 08/27/2013 normal bx, repeat per PCP/COLONOSCOPY FLEXIBLE PROXIMAL DIAGNOSTIC performed by Yusef Wilks MD at ENDOSCOPY [facility] EGD, FLEXIBLE, DIAGNOSTIC 04/15/2021 normal bx, sm hiatal hernia / ESOPHAGOGASTRODUODENOSCOPY (EGD), FLEXIBLE, TRANSORAL, DIAGNOSTIC performed by Beatrice Hurt MD at ENDOSCOPY [facility] INFORMATION Trauma OS requiring extensive repair-blindness IR BIOPSY 05/06/2021 Allergies as of 04/26/2023 (No Known Allergies) Current Outpatient Medications Medication Sig Dispense Refill Multiple Vitamins-Minerals (MULTIVITAMIN ADULT) TABS Take by mouth. Sodium Chloride 1 GM Oral Tablet Take 1 Tablet by mouth in the morning. Clopidogrel Bisulfate 75 MG Oral Tablet (pLAVix) Take 1 tablet by mouth once daily 90 Tablet 3 Atorvastatin Calcium 80 MG Oral Tablet (Lipitor) Take 1 tablet by mouth once daily 90 Tablet 2 Pantoprazole Sodium 40 MG Oral Tablet Delayed Release (Protonix) TAKE 1 TABLET BY MOUTH IN THE MORNING 30 Tablet 2 Famotidine 20 MG Oral Tablet (Pepcid) TAKE 1 TABLET BY MOUTH ONCE DAILY NEEDED FOR HEART BURN 30Tablet 0 Metoprolol Succinate ER 25 MG Oral Tablet Extended Release 24 Hour (toPROL XL) Take 1/2 (one-half) tablet by mouth once daily 45 Tablet 0 Nitroglycerin 0.4 MG Sublingual Tablet Sublingual (Nitrostat) DISSOLVE ONE TABLET UNDER THE TONGUE EVERY 5 MINUTES NEEDED FOR CHEST PAIN. DO NOT EXCEED A TOTAL OF 3 DOSES IN 15 MINUTES 25 Tablet 3 No current facility-administered medications for this visit. PHYSICAL EXAM: Vital Signs: BP 102/76 | Pulse 46 | Resp 14 | Wt 70.8 kg (156 lb) | BMI 23.72 kg/m | BSA 1.84 m General: Awake, alert and oriented x 3. No acute distress. HEENT: Normocephalic, atraumatic. Pupils equal, round and reactive to light and accommodation. Extraocular muscles are intact. Anicteric sclera. Moist mucous membranes. Neck: No JVD. No bruit. Cardiovascular: Regular. 3/6 mid to late systolic ejection murmur. Pulmonary: Clear to auscultation bilaterally. No rales, rhonchi, or wheezing. Abdomen: Bowel sounds x 4, soft. No rebound, guarding or tenderness. No organomegaly. Extremities: No clubbing, cyanosis or edema. Small laceration of the left pretibial region. Skin: Warm and dry. Cardiac studies/labs: EKG performed today and reviewed personally: NSR with 1st degree AV block PAC's in form [facility] Echo report reviewed dated Apr 2022: Interpretation Summary The examination is adequate to evaluate the referral indication. The LV wall thickness is moderately increased (concentric). The left ventricular wall motion is normal. Calculated LV ejection Fraction = 61% (bi-plane method of discs). Mild mitral regurgitation is present. Mild tricuspid regurgitation is present. Mild aortic valve stenosis is present. Mild aortic valve regurgitation is present. The aortic root is borderline enlarged, 3.7 cm. The ascending aorta is moderately enlarged, 4.7 cm. Compared to the report of the prior study performed 03/16/20, grade I diastolic dysfunction is now noted. The severity of the aortic stenosis and the ascending aorta diameter is dilatation are stable without significant interval change. Latest Reference Range & Units 02/17/21 14:28 Triglycerides <=174 mg/dL 198 (H) Cholesterol <200 mg/dL 131 Non-HDL Cholesterol <=159 mg/dL 92 HDL Cholesterol >39 mg/dL 39 (L) LDL Cholesterol (Direct Measure) <=129 mg/dL 62 (H): Data is abnormally high (L): Data is abnormally low IMPRESSION: 87 year old male Coronary artery disease, stable Ascending aortic aneurysm at 4.7 cm per echo Apr 2022 Hypertension, controlled Aortic stenosis, mild per last echo Dyslipidemia Dementia B Cell lymphoma Laceration to the left pretibial region RECOMMENDATIONS: Stable cardiac symptoms. Repeat echo summer 2023 to re-evaluate ascending aorta and aortic stenosis. BP controlled Continue current medications including plavix, metoprolol, atorvastatin. Refill of SL nitro provided per daughter's request. No recent use. Leg bandaged by nursing staff. The patient is to continue all current medications as listed above. No changes were made at today'svisit. I spent a total of 30 minutes on the date of service in preparation, delivery, and documentation ofthe care provided to Fawad Brunner excluding any time spent in the performance of separately billed services. The patient agrees to the above plan and will call with additional questions or concerns. ER with all emergencies advised. Follow-up: Return in about 6 months (around 10/25/2023). | Check-out note: Echo in 6 months F/u after echo Nica Benitez PA-C Department of Cardiology This chart was completed in part utilizing [employer] Speech Voice Recognition Software. Grammatical errors, random word insertions, prounoun errors, and incomplete sentences are an occasional consequence of this system due to software limitations, ambient noise, and hardware issues. Any formal questions or concerns about the content, text, or information contained within the body of this dictation should be directly addressed to the provider for clarification. documented in this encounter Nursing Notes * Kristy Ga LPN - 04/26/2023 10:05 AM EST Examination Room: 6 Name: Fawad Brunner Date of : 1935 Reason for Visit: Follow up Problems/Concerns: denies Interim Hosp(s): denies Chest Pain/SOB: denies MyChart Discussed: ALREADY ACTIVE Patient was instructed to not get up on the exam table until directed and assisted by their provider; patient is to remain seated in the chair/ wheelchair/ exam table for fall prevention and safety reasons. Patient is aware staff will assist stepping down off exam table with personnel. documented in this encounter Plan of Treatment Upcoming Encounters Date Type Department Care Team (Late st Contact Info) Description 05/09/2023 10:15 AM EST Office Visit Hematology/Oncology [address] [place] [address] Marcial Mayer MD [address] [place] [address] [place] [address] 05/31/2023 3:15 PM EST Office Visit Hematology/Oncology [facility] [address] [place] [address] Marcial Mayer MD [address] [facility] [place] [address] 06/19/2023 4:00 PM EDT Office Visit Family Practice [facility] [address] [place] [address] Bonilla Magdaleno MD [address] [place] [address] 10/25/2023 11:00 AM EDT Cardiac Studies Cardiac Studies, [facility] [address] [place] [address] Scheduled Orders Name Type Priority Associated Diagnoses Orde r Schedule ECHO, COMPLETE (2D), TRANS-THORACIC Echocardiology Routine Coronary artery disease involving nikolski coronary artery of nikolski heart without angina pectoris Nonrheumatic aortic valve stenosis Aneurysm of ascending aorta without rupture (HCC) Expected: 10/25/2023 (Approximate), Expires: 10/24/2024 Health Maintenance Due Date Last Done Comments COVID-19 Vaccine (#1) 1940 Albumin/Creatinine Ratio 1954 Zoster Vaccines (1 of 2) 12/24/1955 DTaP,Tdap,and Td Vaccines (2 - Td or Tdap) 06/28/2022 06/28/2012, 09/08/2001 Influenza Vaccine (FLU shot) (#1) 2022 01/11/2022, 02/26/2021, 01/14/2020, Additional history exists Depression Screening 01/11/2023 01/11/2022 CKD PHOS USE SMARTSET 65678 03/29/2023 12, 02/17/2021, 10/09/2019, Additional history exists HbA1c 03/29/2023 03/29/2022, 01/08, 04/30/2018 CKD HGB USE SMARTSET 88144 03/12/202403/12, 03/05/2023, 03/29/2022, Additional history exists Pneumococcal [...] filedocumented as of this encounter Results * EKG (04/26/2023 10:20 AM EST) 04/26/2023 10:2 0 AM EST Narrative Procedure Note Abraham Rosales, - 04/26/2023 10:20 AM EST REASON FOR STUDY: routine CONCLUSIONS: Sinus rhythm with 1st degree AV block with Premature [facility] Left ventricular hypertrophy Abnormal ECG When compared with ECG of 12-SEP-2017 13:50, Premature atrial complexes are now Present Vent. rate has increased BY 24 BPM The axis Shifted left Ventricular Rate: 72 Atrial Rate: 72 SC Interval: 230 QRS Duration: 94 QT/QTc: 388/424 ms P-R-T [place]: 49 : -26 : 31 degrees Nica Benitez PA-C EKG [facility] CARDIOLOGY documented in this encounter Visit Diagnoses Diagnosis Coronary artery disease involving nikolski coronary artery of nikolski heart without angina pectoris- Primary Nonrheumatic aortic valve stenosis Aortic valve disorders Aneurysm of ascending aorta without rupture (HCC) Dyslipidemia, goal LDL below 70 Other and unspecified hyperlipidemia Hypertension goal BP (blood pressure) < 130/80 Unspecified essential hypertension Coronary artery disease involving nikolski coronary artery of nikolski heart without angina pectoris documented in this encounter"
--- OUTSIDE RECORDS SUMMARY | 2023-06-01 12:55 | External Medical Summary | Summary of Care ---
Author Name Unknown Organization [facility] Address [address] [facility] [place] [address] Phone [phone] Care Team Providers Care Solar Project Engineer Name Role Phone Unavailable Primary Care Provider Unavailabl e Reason for Visit * Reason Comments eRx-Medication Refill Encounter Details Date Type Department Care Team (Late st Contact Info) Description 04/14/2023 Refill Family Practice [facility] [address] [place] [address] Nunu Reyes CRNP [address] [place] [address] CAD (coronary artery disease); HTN, goal below 140/90 Allergies No known active allergiesdocumented as of this encounter (statuses as of 04/17/2023) Medications Medication Sig Dispensed Refills Start Date End Date Status Multiple Vitamins-Minerals (MULTIVITAMIN ADULT) TABS Take by mouth. 0 Active Nitroglycerin 0.4 MG Sublingual Tablet Sublingual (Nitrostat)Indica tions:Coronary artery disease involving [place] coronary artery of [place] heart without angina pectoris DISSOLVE ONE TABLET [...] once daily 45 Tablet 0 04/17/2023 Active Metoprolol Succinate ER 25 MG Oral Tablet Extended Release 24 Hour (toPROL XL)Indications:CA D (coronary artery disease),HTN, goal below 140/90 Take 1/2 (one-half) tablet by mouth once daily 45 Tablet 2 07/28/2022 04/17/2023 Discontinued documented as of this encounter (statuses as of 04/17/2023) Active Problems Problem Noted Date Diagnosed Date [...] stent 01/16/2003 Blindness, one eye 01/16/2003 FM [id number] DIS NEC 01/11/2002 documented as of this encounter (statuses as of 04/17/2023) Resolved Problems Problem Noted Date Diagnosed Date [...] as of this encounter (statuses as of 04/17/2023) Immunizations Name Administration Dates Next Due Diptheria/Tetanus (Adult) 09/08/2001 Pneumococcal Conjugate Vacci ne, 20-valent ([id number]) 01/11/2022 Seasonal Influenza, QUAD, wi th Preserv, [...] Miscellaneous Notes * Telephone Encounter - Chan Calles [facility] - 04/17/2023 9:06 AM ESTSigned Prescriptions: Disp Refills Metoprolol Succinate ER 25 MG Oral Tablet *45 Tab*0 Sig: Take 1/2 (one-half) tablet by mouth once dailyAuthorizing Provider: Naty REYES User: CHAN CALLES * Telephone Encounter - Chan Calles RP - 04/17/2023 9:06 AM EST RX authorized. Zero refills given until upcoming appt. Chan Morse PharmD Clinical Pharmacist [facility] [phone] 04/17/2023 9:06 AM documented in this encounter Plan of Treatment Upcoming Encounters Date Type Department Care Team (Late st Contact Info) Description 04/26/2023 10:00 AM EST Office Visit Cardiology, [facility] [address] [place] [address] Nica Benitez PA-C [address] [place] [address] 05/31/2023 3:15 PM EST Office Visit Hematology/Oncology [facility] [address] [facility] [place] [address] Marcial Mayer MD [address] [facility] [place] [address] 06/19/2023 4:00 PM EDT Office Visit Family Practice [facility] [address] [place] [address] Bonilla Magdaleno MD [address] [place] [address] Health Maintenance Due Date Last Done Comments COVID-19 Vaccine (#1) 1940 Albumin/Creatinine Ratio 1954 Zoster Vaccines (1 of 2) 12/24/1955 DTaP,Tdap,and Td Vaccines (2 - Td or Tdap) 06/28/2022 06/28/2012, 09/08/2001 Influenza Vaccine (FLU shot) (#1) 2022 01/11/2022, 02/26/2021, 01/14/2020, Additional history exists Depression Screening 01/11/2023 01/11/2022 CKD PHOS USE SMARTSET [id number] 03/29/2023 12, 02/17/2021, 10/09/2019, Additional history exists HbA1c 03/29/2023 03/29/2022, 01/08, 04/30/2018 CKD HGB USE SMARTSET 14692 03/12/202403/12, 03/05/2023, 03/29/2022, Additional history exists Pneumococcal [...] as of this encounter Visit Diagnoses Diagnosis CAD (coronary artery disease) Coronary atherosclerosis of unspecified type of vessel, [place] or graft HTN, goal below 140/90 Unspecified essential hypertension documented in this encounter
--- OUTSIDE RECORDS SUMMARY | 2023-06-01 12:55 | External Medical Summary | Summary of Care ---
Author Name Unknown Organization [facility] Address [address] [facility] [place] [address] Phone [phone] Care Team Providers Care Career Placement Specialist Name Role Phone Unavailable Primary Care Provider Unavailabl e Reason for Referral * Precert (Within 10 days (routine)) - Authorized Specialty Diagnoses / Procedures Referred By Contac t Referred To Contact Radiology Diagnoses B-cell lymphoma of intra-abdominal lymph nodes, unspecified B-cell lymphoma type (HCC) Procedures PET CT SKULL BASE TO MID-THIGH Marcial Mayer MD [address] [place] [id number] Referral ID Status Reason Start Date Expiration Date V isits Requested Visits Authorized [id number] Authorized 05/22/2023 06/21/2023 999 999 Reason for Visit * Reason Comments Follow Up F/U Encounter Details Date Type Department Care Team (Late st Contact Info) Description 05/09/2023 10:15 AM EST Office Visit Hematology/Oncology [facility] [address] [place] [address] [id number] Marcial Mayer MD [address] [place] [id number] B-cell lymphoma of intra-abdominal lymph nodes, unspecified B-cell lymphoma type (HCC)* Allergies No known active allergiesdocumented as of [...] Tablet Sublingual (Nitrostat)Indicati ons:Coronary artery disease involving mi'kmaq coronary artery 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'kmaq heart without angina pectoris DISSOLVE ONE TABLET [...] stent 01/16/2003 Blindness, one eye 01/16/2003 FM [id number] DIS NEC 01/11/2002 documented as of this [...] (Adult) 09/08/2001 Pneumococcal Conjugate Vacci ne, 20-valent ([id number]) 01/11/2022 Seasonal Influenza, QUAD, wi th Preserv, [...] Sign Reading Time Taken Comments Blood Pressure 135/79 05/09/2023 10:21 AM EST Pulse 65 05/09/2023 10:21 AM EST Temperature 37.1 C (98.7 F) 05/09/2023 1 0:21 AM EST Respiratory Rate 18 05/09/2023 10:2 1 AM EST Oxygen Saturation 96% 05/09/2023 10: 21 AM EST Inhaled Oxygen Concentration - - Weight 71.1 kg (156 lb 11.2 oz) 024 10:21 AM EST Height - - Body Mass Index 23.83 05/16/2022 12:33 PM EST documented in this encounter Progress Notes * Marcial Mayer MD - 05/09/2023 10:15 AM EST Hematology/Oncology Outpatient Clinic note [facility] [address] [facility] [address] [place] [place], [place] [address] Name: Fawad Brunner Date: 05/31/2022 CHIEF COMPLAINT: Fawad Brunner is a 87 year old male here today for f/u visit today. HEMATOLOGY/ONCOLOGY DIAGNOSIS: History of B-cell lymphoma, low-grade DATE OF DIAGNOSIS: 2013 TREATMENT HISTORY: Radiation treatment to the right renal hilar region between 12/08/2015-01/06/2016 CURRENT TREATMENT: Observation. DIAGNOSTIC WORKUP: Earlier in 2013 he was evaluated for aortic aneurysm, imaging studies done at that time showed lymphadenopathy, further workup and treatment as follows: Pathology: -FNA from the left para-aortic lymph node--> atypical lymphoid infiltrates compatible with the B-cell lymphoma. Positive for IgH assay. (09/2013) -FNA from the right perinephric soft tissue mass--> B-cell lymphoma, low-grade, MIB 1 proliferative index is between 5-10%. EBV negative. (October,) - Left retroperitoneal soft tissue mass (05/06/2021: --> recurrent low-grade B- cell lymphoma. Interval History: CT Chest 02/11/22: IMPRESSION: Appearance of the lungs minimally changed from previous. Persistent right perihilar density is seen with air bronchograms . Again seen are scattered ground-glass opacities and interstitial opacities throughout the lungs. While the mass density does have air bronchograms, its appearance warrants further evaluation. Consider further evaluation with PET scan, or biopsy/bronchoscopy. CT Chest 05/16/22: IMPRESSION: 1. Minimal change in right upper lobe perihilar lung mass.Highly suspicious nodule(s). Consider non-emergent PET/CT, or tissue sampling.(Reference: Alexandro) Patient opted to not pursue any further testing at this time as patient feeling clinically well. HISTORY OF PRESENT ILLNESS: He has come the clinic for the follow-up, accompanied by his daughter in the office, his daughter lives with him. Overall his condition has remained stable, no increasing coughing, chest pain or shortness of breath tightness in the chest, ambulates slowly, good appetite, weight has remained stable around 156, no fever, no night sweats. No increasing leg edema. Past Medical History: Diagnosis Date ABDOMINAL AORTIC ANEURYSM- 2.7 cm 11/01/2009 ASCVD (arteriosclerotic cardiovascular disease) Dyslipidemia, goal to be determined HTN, goal below 140/90 S/P angioplasty with stent 1999 Past Surgical History: Procedure Laterality Date BRONCHOSCOPY, DIAGNOSTIC N/A 04/12/2023 BRONCHOSCOPY DIAGNOSTIC WITH OR WITHOUT WASHING performed by Kenyetta Henry MD at [facility] COLONOSCOPY, DIAGNOSTIC (RECTUM) 08/27/2013 normal bx, repeat per PCP/COLONOSCOPY FLEXIBLE PROXIMAL DIAGNOSTIC performed by Yusef Wilks MD at ENDOSCOPY [facility] EGD, FLEXIBLE, DIAGNOSTIC 04/15/2021 normal bx, sm hiatal hernia / ESOPHAGOGASTRODUODENOSCOPY (EGD), FLEXIBLE, TRANSORAL, DIAGNOSTIC performed by Beatrice Hurt MD at ENDOSCOPY [facility] INFORMATION Trauma OS requiring extensive repair-blindness IR BIOPSY 05/06/2021 Social History Tobacco Use Smoking status: Never Smokeless tobacco: Never Vaping Use Vaping Use: Never used Substance and Sexual Activity Alcohol use: No Drug use: No Review of patient's allergies indicates: No Known Allergies Current Outpatient Medications Medication Sig Dispense Refill [...] No current facility-administered medications for this visit. REVIEW OF SYSTEMS: See HPI - otherwise negative OBJECTIVE: BP 135/79 (BP Site: Left Arm, BP Position: Sitting, BP Cuff Size: Regular) | Pulse 65 | Temp 37.1 C (98.7 F) (Tympanic) | Resp 18 | Wt 71.1 kg (156 lb 11.2 oz) | SpO2 96% | BMI 23.83 kg/m | BSA1.85 m PHYSICAL EXAM: ECOG: Performance Status 1 = 80-90% Symptoms but nearly ambulatory General Appearance: No acute distress Lymph Nodes: Normal - No palpable lymph nodes in the neck or supraclavicular areas Lungs/Thorax: Normal - Clear to auscultation Heart: Normal - Regular rate and rhythm, +murmur Pulses/Extremities: Normal - 2+ throughout and symmetrical, no edema Abdomen: Normal - Soft, nontender, bowel sounds present, no appreciable hepatosplenomegaly, no palpable masses Neurologic: Normal - Grossly intact LABS: I reviewed blood workup done on 05/09/2023: -BUN/Creat: 18/1.2, Calcium 9.9, normal LFT -WBC 8900, H&H of 11/34.5, Platelet count of 262122 -LDH --> pending. CT scan of chest done at [facility] on 03/01/2023: - interval increased size of the right perihilar, upper lobe consultation with some mass effect along the adjacent right upper lobe bronchi -progression of the mediastinum right hilar lymphadenopathy -patchy airspace opacity in the left lower lobe ( pneumonia). Bronchoscopic evaluation on 04/12/2023: -biopsy from subcarinal lymph node, 4 R, 11 R --> Atypical lymphocytes, most compatible with B-cell lymphoma. FISH for high-grade lymphoma --> negative. IMPRESSION/PLAN: History of B-cell lymphoma, low-grade Anemia of CKD RUL lung mass Recently he had bronchoscopic evaluation, biopsy from the mediastinal subcarinal lymph node suggestB-cell lymphoma, FISH for high-grade lymphoma is negative. Overall I think we are dealing with a lymphoma diagnosis for the last several years, we have not treated him with a systemic treatment in the past Currently he does not have any active symptoms in the chest. Reviewed blood workup done today, mild anemia noted which is not a new finding, normal kidney liverfunction noted, LDH is pending. I am planning for PET-CT scan for further evaluation and then will see him back in the clinic. Dr. Marcial Mayer Hem/Onc (This note was completed using the dictation program Fluency Direct. As such, there may be misspellings word substitutions, or other variations that should not change the essence of the clinical content of this encounter note. If there is need for further clarification, please direct questions to the provider listed above.) documented in this encounter Nursing Notes * Antonia Jasso LPN - 05/09/2023 10:24 AM EST Patient identifed by name and birthdate Do you have any concerns about pain management for today's visit? No Living Will or Advance Directive for Health Care as noted on the problem list. [facility] is a way you can talk to your provider on line through e-mail. Would you like to sign up? I can activate it for you? NO Filed Vitals: 05/09/23 1021 BP: 135/79 Pulse: 65 Resp: 18 Temp: 37.1 C (98.7 F) TempSrc: Tympanic SpO2: 96% Weight: 71.1 kg (156 lb 11.2 oz) Patient was instructed to not get up on the exam table/exam chair until directed and assisted by their provider; patient is to remain seated in the chair/ wheelchair/ exam table/ exam chair for fall prevention and safety reasons. Patient is aware to have assistance to step down off exam table/exam chair with personnel. Patient voiced full comprehension of instructions. documented in this encounter Plan of Treatment Upcoming Encounters Date Type Department Care Team (Late st Contact Info) Description 05/22/2023 11:45 AM EST [facility] [address] [place] [address] 05/31/2023 3:15 PM EST Office Visit Hematology/Oncology [facility] [address] [facility] [place] [address] Marcial Mayer MD [address] [facility] [place] [address] 06/19/2023 4:00 PM EDT Office Visit Family Practice [facility] [address] [facility] [place] [address] Bonilla Magdaleno MD [address] [facility] [place] [address] 10/25/2023 11:00 AM EDT Cardiac Studies Cardiac Studies, [facility] [address] [facility] [place] [address] Pending Results Name Type Priority Associated Diagnoses Date /Time LD Lab Routine B-cell lymphoma of intra-abdominal lymph nodes, unspecified B-cell lymphoma type (HCC) 05/09/2023 10:55 AM EST Scheduled Orders Name Type Priority Associated Diagnoses Orde r Schedule PET CT SKULL BASE TO MID-THIGH Medical Imaging Routine B-cell lymphoma of intra-abdominal lymph nodes, unspecified B-cell lymphoma type (HCC) Ordered: 05/09/2023 Health Maintenance Due Date Last Done Comments COVID-19 Vaccine (#1) 1940 Albumin/Creatinine Ratio 1954 Zoster Vaccines (1 of 2) 12/24/1955 DTaP,Tdap,and Td Vaccines (2 - Td or Tdap) 06/28/2022 06/28/2012, 09/08/2001 Influenza Vaccine (FLU shot) (#1) 2022 01/11/2022, 02/26/2021, 01/14/2020, Additional history exists Depression Screening 01/11/2023 01/11/2022 CKD PHOS USE SMARTSET 06774 03/29/202303/11, 02/17/2021, 10/09/2019, Additional history exists HbA1c 03/29/2023 03/29/2022, 01/08, 04/30/2018 CKD HGB USE SMARTSET 03415 05/09/202405/09, 05/09/2023, 03/12/2023, Additional history exists Pneumococcal [...] Not on filedocumented as of this encounter Procedures Procedure Name Priority Date/Time Associated Diagnosis Comments DIFFERENTIAL, AUTOMATED STAT 05/09/2023 10:55 AM EST B-cell lymphoma of intra-abdominal lymph nodes, unspecified B-cell lymphoma type (HCC) COMPREHENSIVE METABOLIC PANEL STAT 05/09/2023 10:55 AM EST B-cell lymphoma of intra-abdominal lymph nodes, unspecified B-cell lymphoma type (HCC) CBC STAT 05/09/2023 10:55 AM EST B-cell lymphoma of intra-abdominal lymph nodes, unspecified B-cell lymphoma type (HCC) CBC STAT 05/09/2023 10:55 AM EST B-cell lymphoma of intra-abdominal lymph nodes, unspecified B-cell lymphoma type (HCC) documented in this encounter Results * (ABNORMAL) DIFFERENTIAL, AUTOMATED (05/09/2023 10:55 AM EST) WBC 8.99 4.00 - 10.80 K/uL 05/09/2023 11:09 AM [facility] 56-02 Neutrophils % 73.4 40.0 - 75.0 % 05/09/2023 11:09 AM [facility] 56-02 Lymphocytes % 12.1(L) 18.0 - 42.0 % 05/09/2023 11:09 AM [facility] 56-02 Monocytes % 12.1(H) 1.0 - 11.0 % 05/09/2023 11:09 AM [facility] 56-02 Eosinophils % 2.0 0.0 - 6.0 % 05/09/2023 11:09 AM [facility] 56-02 Basophils % 0.4 0.0 - 2.0 % 05/09/2023 11:09 AM [facility] 56-02 Absolute Neutrophils 6.59 1.80 - 7.70 K/uL 05/09/2023 11:09 AM [facility] 56-02 Absolute Lymphocytes 1.09 1.00 - 4.80 K/ul 05/09/2023 11:09 AM [facility] 56-02 Absolute Monocytes 1.09 0.00 - 1.10 K/uL 05/09/2023 11:09 AM [facility] 56-02 Absolute Eosinophils 0.18 0.00 - 0.70 K/uL 05/09/2023 11:09 AM [facility] 56-02 Absolute Basophils 0.04 0.00 - 0.20 K/uL 05/09/2023 11:09 AM [facility] 56-02 Blood Venous blood specimen / Unknown Venipuncture / Unknown 05/09/2023 10:55 AM EST 05/09/2023 10:55 AM EST Marcial Mayer MD LAB BLOOD ORDERABLES [facility] 56-[address] [place] [address] * (ABNORMAL) CBC (05/09/2023 10:55 AM EST) WBC 8.99 4.00 - 10.80 K/uL 05/09/2023 11:09 AM [facility] 56-02 RBC 3.68 4.50 - 5.25 M/uL 05/09/2023 11:09 AM [facility] 56- HGB 11.1(L) 14.0 - 16.8 g/dL 05/09/2023 11:09 AM [facility] 56- HCT 34.5(L) 40.0 - 48.4 % 05/09/2023 11:09 AM [facility] 56- MCV 93.8 82.0 - 99.5 fL 05/09/2023 11:09 AM [facility] 56- MCH 30.2 27.0 - 34.0 pg 05/09/2023 11:09 AM [facility] 56 MCHC 32.2 32.0 - 36.0 g/dL 05/09/2023 11:09 AM [facility] 56- RDW 14.7 11.5 - 15.5 % 05/09/2023 11:09 AM [facility] 56 PLT 264 140 - 400 K/uL 05/09/2023 11:09 AM [facility] 56 MPV 10.4 6.6 - 11.1 fL 05/09/2023 11:09 AM [facility] 56 Blood Venous blood specimen / Unknown Venipuncture / Unknown 05/09/2023 10:55 AM EST 05/09/2023 10:55 AM EST Marcial Mayer MD LAB BLOOD ORDERABLES [facility] 56- [address] [place] [address] * COMPREHENSIVE METABOLIC PANEL (05/09/2023 10:55 AM EST) BUN 18 6 - 20 mg/dL 05/09/2023 11:55 AM [facility] 56- Creatinine 1.2 0.6 - 1.2 mg/dL 05/09/2023 11:55 AM [facility] 56- Estimated Glomerular Filtration Rate 61 >=60 mL/min 05/09/2023 11:55 AM [facility] 56- Comment:eGFR is calculated b ased on the CKD-EPI 2020 equation Sodium 139 135 - 146 mmol/L 05/09/2023 11:55 AM [facility] 56-02 Potassium 4.4 3.5 - 5.1 mmol/L 05/09/2023 11:55 AM [facility] 56-02 Chloride 104 98 - 107 mmol/L 05/09/2023 11:55 AM [facility] 56-02 CO2 25 22 - 32 mmol/L 05/09/2023 11:55 AM [facility] 56-02 Anion Gap 10 7 - 15 mmol/L 05/09/2023 11:55 AM [facility] 56-02 Glucose 111 70 - 120 mg/dL 05/09/2023 11:55 AM [facility] 56-02 Albumin 4.2 3.8 - 5.0 g/dL 05/09/2023 11:55 AM [facility] 56-02 AST 26 10 - 50 U/L 05/09/2023 11:55 AM [facility] 56-02 Alkaline Phosphatase 95 35 - 130 U/L 05/09/2023 11:55 AM [facility] 56-02 Bilirubin, Total 0.6 <=1.2 mg/dL 05/09/2023 11:55 AM [facility] 56-02 Calcium 9.9 8.4 - 10.2 mg/dL 05/09/2023 11:55 AM [facility] 56-02 Protein 6.4 6.0 - 8.3 g/dL 05/09/2023 11:55 AM [facility] 56-02 ALT 21 10 - 50 U/L 05/09/2023 11:55 AM [facility] 56-02 Blood Venous blood specimen / Unknown Venipuncture / Unknown 05/09/2023 10:55 AM EST 05/09/2023 10:55 AM EST Marcial Mayer MD LAB BLOOD ORDERABLES [facility] 56-[address] [place] [address] documented in this encounter Visit Diagnoses Diagnosis B-cell lymphoma of intra-abdominal lymph nodes, unspecified B-cell lymphoma type (HCC)- Primary documented in this encounter"
--- OUTSIDE RECORDS SUMMARY | 2023-06-01 12:56 | External Medical Summary | Summary of Care ---
Author Name Unknown Organization [facility] Address [address] [place] [address] Phone [phone] Care Team Providers Care Nut Sorter Operator Name Role Phone Unavailable Primary Care Provider Unavailabl e Reason for Visit * Reason Onset Date Comments Pre Procedure Assessment 04/06/2023 Encounter Details Date Type Department Care Team (Late st Contact Info) Description 04/06/2023 Telephone Gastroenterology, [facility] [address] [place] [address] Kenyetta Henry MD [address] [place] [address] Pre Procedure Assessment Allergies No known active allergiesdocumented as of this encounter (statuses as of 04/06/2023) Medications Medication Sig Dispensed Refills Start Date End Date Status Multiple Vitamins-Minerals (MULTIVITAMIN ADULT) TABS Take by mouth. 0 Active Nitroglycerin 0.4 MG Sublingual Tablet Sublingual (Nitrostat)Indication s:Coronary artery disease involving gambell coronary artery of gambell heart without angina pectoris DISSOLVE ONE TABLET [...] HEART BURN 30 Tablet 0 01/26/2023 Active Pantoprazole Sodium 40 MG Oral Tablet Delayed Release (Protonix)Indications :Gastroesophageal reflux disease without esophagitis TAKE 1 TABLET BY MOUTH IN THE MORNING 30 Tablet 2 03/29/2023 Active documented as of this encounter (statuses as of 04/06/2023) Active Problems Problem Noted Date Diagnosed Date [...] stent 01/16/2003 Blindness, one eye 01/16/2003 FM [id number] DIS NEC 01/11/2002 documented as of this encounter (statuses as of 04/06/2023) Resolved Problems Problem Noted Date Diagnosed Date [...] as of this encounter (statuses as of 04/06/2023) Immunizations Name Administration Dates Next Due Diptheria/Tetanus (Adult) 09/08/2001 Pneumococcal Conjugate Vacci ne, 20-valent ([id number]) 01/11/2022 Pneumococcal Polysaccharide PPV23 (Pneumovax) 12/17/2004 Seasonal [...] encounter Miscellaneous Notes * Telephone Encounter - Deb Baeza RN - 04/06/2023 10:31 AM EST Completed anesthesia assessment on patient. Advised patient to arrive one hour prior to scheduled appointment time. General anesthesia reviewed with patient and/or family. Patient verbalized understanding of the information given. I have instructed the patient on which medications to take the day of the procedure, which are metoprolol with a few sips of water the morning of the procedure. Patientinstructed to not eat or drink after midnight prior to the procedure, except medications. Patient instructed to not smoke or use smokeless tobacco, not to wear any jewelry, or use lotion the day of the procedure. Patient instructed to bring a car driver. Patient voiced no other concerns or questions abo ut the instructions provided to them about their procedure. Denies any flu-like symptoms (cough,fever or shortness of breath)or traveling outside the [place] (by plane/cruise ship) in the past 14 days or coming in contact with anyone that has tested positive for the Coronavirus. Instructed patient they will need to stop plavix 5 days prior to procedure and to contact prescribing doctor/coag clinic regarding this. Patient understands. documented in this encounter Plan of Treatment Upcoming Encounters Date Type Department Care Team (Latest Contact Info) Description 04/12/2023 2:30 PM EST Hospital Encounter ENDO [facility], Endoscopy Suite, AM [address], [address] [place] [address] Kenyetta Henry MD [address] [place] [address] 04/12/2023 2:30 PM EST - 04/12/2023 4:00 PM EST Surgery ENDO [facility], Endoscopy Suite, HFAM 1, [address], [place] [id number] Kenyetta Henry MD [address], [place] [id number] BRONCHOSCOPY DIAGNOSTIC WITH OR WITHOUT WASHING 04/26/2023 10:00 AM EST Office Visit Cardiology, [facility] [address] [facility] [place] [address] Nica Benitez PA-C [address] [facility] [address] 05/31/2023 3:15 PM EST Office Visit Hematology/Oncology [facility] [address] [facility] [place] [address] Marcial Mayer MD [address] [facility] [place] [address] 06/19/2023 4:00 PM EDT Office Visit Family Practice [facility] [address] [facility] [place] [address] Bonilla Magdaleno MD [address] [facility] [place] [address] Scheduled Procedures Name Priority Associated Diagnoses Date/Ti me BRONCHOSCOPY DIAGNOSTIC WITH OR WITHOUT WASHING Lung disorder 04/12/2023 2:30 PM EST Health Maintenance Due Date Last Done Comments COVID-19 Vaccine (#1) 1940 Albumin/Creatinine Ratio 1954 Zoster Vaccines (1 of 2) 12/24/1954 DTaP,Tdap,and Td Vaccines (2 - Td or Tdap) 06/28/2022 06/28/2012, 09/08/2001 Influenza Vaccine (FLU shot) (#1) 2022 01/11/2022, 02/26/2021, 01/14/2020, Additional history exists Depression Screening 01/11/2023 01/11/2022 CKD PHOS USE SMARTSET 65243 03/29/2023 12/, 02/17/2021, 10/09/2019, Additional history exists HbA1c 03/29/2023 03/29/2022, 01/08, 04/30/2018 CKD HGB USE SMARTSET 14536 03/12/202403/12, 03/05/2023, 03/29/2022, Additional history exists Pneumococcal [...]
--- OUTSIDE RECORDS SUMMARY | 2023-06-01 12:56 | External Medical Summary | Summary of Care ---
Author Name Unknown Organization [facility] Address [address] [facility] [place] [address] Phone [phone] Care Team Providers Care Shellfish Farming Supervisor Name Role Phone Joaquin Ramirez DO Primary Care Provider [phone] Encounter Details Date Type Department Care Team (Latest Contact Info) Description 12/30/2021 2:25 AM EDT - 12/30/2021 2:49 AM EDT Hospital Encounter Radiology Film File [address] [facility] [place] [address] Discharge Disposition: Home - Self Care Allergies No known active allergiesdocumented as of this encounter (statuses as of 03/24/2023) Medications Medication Sig Dispensed Refills Start Date End Date Status Multiple Vitamins-Minerals (MULTIVITAMIN ADULT) TABS Take by mouth. 0 Active Nitroglycerin 0.4 MG Sublingual Tablet Sublingual (Nitrostat)Indicatio ns:Coronary artery disease involving [place] coronary artery of [place] heart without angina pectoris DISSOLVE ONE TABLET UNDER THE TONGUE EVERY 5 MINUTES NEEDED FOR CHEST PAIN. DO NOT EXCEED A TOTAL OF 3 DOSES IN 15 MINUTES 25 Tablet 3 09/23/2021 Active documented as of this encounter (statuses as of 03/24/2023) Active Problems Problem Noted Date Diagnosed Date [...] stent 01/16/2003 Blindness, one eye 01/16/2003 FM [id number] DIS NEC 01/11/2002 documented as of this encounter (statuses as of 03/24/2023) Resolved Problems Problem Noted Date Diagnosed Date [...] as of this encounter (statuses as of 03/24/2023) Immunizations Name Administration Dates Next Due Diptheria/Tetanus (Adult) 09/08/2001 Seasonal Influenza, QUAD, wi th Preserv, 6 mons & Above, 0.5 mL, IM 01/14/2020 Seasonal Influenza, Quadriva lent Hd (Fluzone Hd) 02/26/2021 Seasonal Influenza, Split, I IV3, With Preserve, [...] 04/26/2023 10:00 AM EST Office Visit Cardiology, [facility] [address] [address] Nica Benitez PA-C [address] [address] 05/31/2023 3:15 PM EST Office Visit [facility]ematology/[facility] [place] [address] [facility] [place] [address] Marcial Mayer MD [address] [place] [address] 06/19/2023 4:00 PM EDT Office Visit Family Practice [facility] [address] [place] [address] Bonilla Magdaleno MD [address] [place] [address] Health Maintenance Due Date Last Done Comments COVID-19 Vaccine (#1) 1940 Albumin/Creatinine Ratio 1953 Zoster Vaccines (1 of 2) 12/24/1955 DTaP,Tdap,and Td Vaccines (2 - Td or Tdap) 06/28/2022 06/28/2012, 09/08/2001 Influenza Vaccine (FLU shot) (#1) 2022 01/11/2022, 02/26/2021, 01/14/2020, Additional history exists Depression Screening 01/11/2023 01/11/2022 CKD PHOS USE SMARTSET 98746 03/29/202303/11, 02/17/2021, 10/09/2019, Additional history exists HbA1c 03/29/2023 03/29/2022, 01/08, 04/30/2018 CKD HGB USE SMARTSET 45651 03/12/202403/12, 03/05/2023, 03/29/2022, Additional history exists Pneumococcal [...] Procedure Name Priority Date/Time Associated Diagnosis Comments RADIOLOGY EXAM - GENERAL RAD (IMAGES ONLY,NO REPORT) Routine 12/30/2021 2:25 AM EDT documented in this encounter Results * RADIOLOGY EXAM - GENERAL RAD (IMAGES ONLY,NO REPORT) (12/30/2021 2:25 AM EDT) 12/30/2021 2:21 AM EDT Narrative Scheduling, Silent - 03/23/2023 1:18 PM EST This is an imaging study not interpreted or resulted by a [facility]. [facility] ([facility]) documented in this encounter Care Teams [employer] Supervisor Relationship Specialty Start Date End Date Joaquin Ramirez DO PCP - General Family Medicine 11/02/18 02/22/23 documented as of this encounter
--- OUTSIDE RECORDS SUMMARY | 2023-06-01 12:56 | External Medical Summary ---
Author Name Unknown Address Unknown Organization : Laboratory Report Ordering Provider Test Date Status ARLENE NIETO 04/12/2023 14:25:00 Final Observation Date Value Abnormality Reference (Units ) Status REFERENCE LAB SCANNED REPORT 04/12/2023 14:25:00 See Scanned Report Final Performing Location
--- OUTSIDE RECORDS SUMMARY | 2023-06-01 12:56 | External Medical Summary | Summary of Care ---
Author Name Unknown Organization [facility] Address [address] [place] [address] Phone [phone] Care Team Providers Care Community Living Specialist Name Role Phone Unavailable Primary Care Provider Unavailabl e Reason for Visit * Auth/Cert Specialty Diagnoses / Procedures Referred By Julian t Referred To Contact Diagnoses Lung disorder Lung disorder [J98.4] Procedures BRONCHOSCOPY, DIAGNOSTIC BRONCHOSCOPY DIAGNOSTIC WITH OR WITHOUT WASHING Referral ID Status Reason Start Date Expiration Date Visits Re quested Visits Authorized [id number] Encounter Details Date Type Department Care Team (Latest Contact Info) Description 04/12/2023 12:50 PM EST - 04/12/2023 4:13 PM EST Hospital Encounter ENDO [facility], Endoscopy [address], [address], [address] [place] [address] Kenyetta Henry MD [address] [place] [address] GI Bronchoscopy Discharge Disposition: Home - Self Care Allergies No known active allergiesdocumented as of this encounter (statuses as of 04/13/2023) Medications Medication Sig Dispensed Refills Start Date End Date Status Multiple Vitamins-Minerals (MULTIVITAMIN ADULT) TABS Take by mouth. 0 Active Nitroglycerin 0.4 MG Sublingual Tablet Sublingual (Nitrostat)Indication s:Coronary artery disease involving [place] coronary artery of [place] heart without angina pectoris DISSOLVE ONE TABLET [...] stent 01/16/2003 Blindness, one eye 01/16/2003 FM [id number] DIS NEC 01/11/2002 documented as of this [...] (Adult) 09/08/2001 Pneumococcal Conjugate Vacci ne, 20-valent ([id number]) 01/11/2022 Seasonal Influenza, QUAD, wi th Preserv, [...] Sign Reading Time Taken Comments Blood Pressure 164/74 04/12/2023 3:45 PM EST Pulse 51 04/12/2023 3:45 PM EST Temperature 36.1 C (97 F) 04/12/2023 3:30 PM EST Respiratory Rate 21 04/12/2023 3:45 PM EST Oxygen Saturation 100% 04/12/2023 3:45 PM EST Inhaled Oxygen Concentration - - Weight 68.9 kg (152 lb) 04/12/2023 1:40 PM EST Height - - Body Mass Index 23.11 05/16/2022 12:33 PM EST documented in this encounter H&P Notes * Kenyetta Henry MD - 04/12/2023 1:30 PM EST Endoscopy Pre-Procedure Assessment Name: Fawad Brunner Date: 04/12/2023 Time: 1:30 PM Procedure(s): Endobronchial Ultrasound; with Indication(s) of lung mass Endoscopy Pre-Procedure Assessment: Prior to the procedure, the patient is identified. The patient's history, medications and allergieshave been reviewed. The patient is competent. The risks and benefits of the proposed procedure and the planned sedation have been discussed with the patient and his children at bedside. All questionshave been answered and informed consent for the procedure has been obtained. Prior to Admission medications Medication Sig Last Dose Discont. Pantoprazole Sodium 40 MG Oral Tablet Delayed Release (Protonix) TAKE 1 TABLET BY MOUTH IN THE MORNING 04/11/2023 Famotidine 20 MG Oral Tablet (Pepcid) TAKE 1 TABLET BY MOUTH ONCE DAILY NEEDED FOR HEART BURN 04/11/2023 Atorvastatin Calcium 80 MG Oral Tablet (Lipitor) Take 1 tablet by mouth once daily 04/11/2023 Metoprolol Succinate ER 25 MG Oral Tablet Extended Release 24 Hour (toPROL XL) Take 1/2 (one-half) tablet by mouth once daily 04/12/2023 Clopidogrel Bisulfate 75 MG Oral Tablet (pLAVix) Take 1 tablet by mouth once daily Past Week Sodium Chloride 1 GM Oral Tablet Take 1 Tablet by mouth in the morning. 04/11/2023 Multiple Vitamins-Minerals (MULTIVITAMIN ADULT) TABS Take by mouth. 04/11/2023 Nitroglycerin 0.4 MG Sublingual Tablet Sublingual (Nitrostat) DISSOLVE ONE TABLET UNDER THE TONGUE EVERY 5 MINUTES NEEDED FOR CHEST PAIN. DO NOT EXCEED A TOTAL OF 3 DOSES IN 15 MINUTES Over 30 Days Review of patient's allergies indicates: No Known Allergies There were no vitals taken for this visit. Physical Exam: Mental Status Examination: alert but demented. Airway Examination: normal oropharyngeal airway and neck mobility. Respiratory Examination: clear to auscultation. CV Examination: normal. ASA Grade: III - A patient with severe systemic disease. Abdomen: negative This patient has undergone a preprocedural evaluation. A determination has been made to proceed with the planned procedure under [facility] procedural guidelines and the [facility] Non-Emergent, Elective Medical Services and Treatment Recommendations (published on 07-16-19). The community and hospital prevalence of COVID-19 has been discussed as well as this patient's specific risks associated with SARS-CoV-19 infection. Based upon the clinical acuity and patient-specific care considerations, this procedure is deemed a Tier I - High acuity treatment or service with immediate threat to life or threat of severe progressive disease. Lack of treatment or service would result in patient harm. After reviewing the risks and benefits, the patient is deemed in satisfactory condition to undergo the procedure. The anesthesia plan is to use general anesthesia. Tena Henry MD 04/12/2023 documented in this encounter Procedure Notes * Santa Law CRNP - 04/12/2023 1:29 PM ESTAssociated Order(s): BRONCHOSCOPY [facility] Patient Name: Fawad Brunner Procedure Date: 04/12/2023 1:29 PM Date of : 1935 Admit Type: Outpatient Note Status: Finalized Date of : 1935 Admit Type: Outpatient Age: 87 Room: ENDO - ROOM 10 Gender: Male Note Status: Finalized Procedure: Bronchoscopy (EBUS) Indications: Adenopathy Providers: Tena Henry MD, Kat Velazco, RN Referring MD: Santa Law NP (Referring MD) Medicines: General Anesthesia Complications: No immediate complications Procedure: Pre-Anesthesia Assessment: - ASA Grade Assessment: III - A patient with severe systemic disease. After obtaining informed consent, the [id number] Bronchoscope ([id number]) was introduced through the mouth, via the endotracheal tube (the patient was intubated for the procedure) and advanced to the tracheobronchial tree. All instruments were visually inspected immediately before and after removal from the patient to ensure they are fully intact. The procedure was accomplished without difficulty. The patient tolerated the procedure well. Findings & Specimens: The endotracheal tube is in good position. The visualized portion of the trachea is of normal caliber. The phoenix is sharp. The tracheobronchial tree was examined to at least the first subsegmental level. Bronchial mucosa and anatomy are normal; there are no endobronchial lesions, and no secretions. Lymph Nodes: An endobronchial ultrasound endoscope was utilized to systematically examine the left lower paratracheal region (level 4L), subcarinal mediastinum (level 7) and right superior interlobar region (level 11Rs) in order to assist with fine needle aspiration. An endobronchial ultrasound-guided transbronchial needle aspiration was performed using a [employer] Expect 25 gauge needle and sent for routine cytology. Specimens were obtained from the 4L (lower paratracheal), 7 (subcarinal)and 11Rs (superior interlobar) lymph nodes. 6-7 per node were performed. Rapid On-Site Evaluation (WAQAS): Preliminary cytology was suggestive of atypical cells (final results are pending) in the left lower paratracheal region (level 4L), subcarinal mediastinum (level 7) and right superior interlobar region (level 11Rs). The cytology specimen was placed in Bottle A - 11Rs. The cytology specimen was placed in Bottle B - 7. The cytology specimen was placed in Bottle C - 4L. Impression: - Adenopathy - The airway examination was as above. - Endobronchial ultrasound was performed. - A transbronchial needle aspiration was performed. - Rapid On-Site Evaluation (WAQAS): Preliminary cytology was suggestive of atypical cells in node level 4L, node level 7 and node level 11Rs (final results are pending). Recommendation: - Await cytology results. Kenyetta-Elise Henry MD 04/12/2023 2:54:33 PM This report has been signed electronically. documented in this encounter Nursing Notes * Kristy Sr RN - 04/12/2023 3:39 PM EST Per verbal order, the physician and/or designant examined the patient, prescribed and verified the charted medications and certify that he is recovered for safe discharge from Endoscopy. Patient is discharged under the care of : family member Report called to N/A Means of transportation: wheelchair Discharge instructions reviewed by: Physician and Nurse Special discharge instructions given for: N/A Bronchoscopy: N/A Patient verbalized understanding of discharge instructions: YES * Kristy Sr RN - 04/12/2023 3:31 PM EST Patient out of bed to chair with assist. Gait steady. No complaints at this time. * Kristy Sr RN - 04/12/2023 3:21 PM EST Patient sitting up in stretcher. Patient offered drink, and is tolerating P.O. fluids well. Daughter is at the bedside. * Kat Velazco RN - 04/12/2023 2:52 PM EST Specimen(s) and location(s) verified with physician post procedure 2:52 PM * Kat Velazco RN - 04/12/2023 1:39 PM EST Procedure being completed under general anesthesia. Please see anesthesia record for medications and vital signs. documented in this encounter Plan of Treatment Upcoming Encounters Date Type Department Care Team (Late st Contact Info) Description 04/26/2023 10:00 AM EST Office Visit Cardiology, [facility] [address] [place] [address] Nica Benitez PA-C [address] [place] [address] 05/31/2023 3:15 PM EST Office Visit [facility] [address] [facility] [address] [facility]cial [facility] [address] [facility] [address] 06/19/2023 4:00 PM EDT Office Visit Family Practice [facility] [address] [place] [address] Bonilla Magdaleno MD [address] [place] [address] Pending Results Name Type Priority Associated Diagnoses Date /Time CYTOLOGY Pathology Routine Lung disorder 04/12/2023 2:16 PM EST Scheduled Orders Name Type Priority Associated Diagnoses Orde r Schedule CYTOLOGY Pathology Routine Lung disorder Release Upon Ordering for 1 Occurrences starting 04/12/2023, 1 completed Health Maintenance Due Date Last Done Comments COVID-19 Vaccine (#1) 1941 Albumin/Creatinine Ratio 1954 Zoster Vaccines (1 of 2) 12/24/1955 DTaP,Tdap,and Td Vaccines (2 - Td or Tdap) 06/28/2022 06/28/2012, 09/08/2001 Influenza Vaccine (FLU shot) (#1) 2022 01/11/2022, 02/26/2021, 01/14/2020, Additional history exists Depression Screening 01/11/2023 01/11/2022 CKD PHOS USE SMARTSET 38613 03/29/202303/11, 02/17/2021, 10/09/2019, Additional history exists HbA1c 03/29/2023 03/29/2022, 01/08, 04/30/2018 CKD HGB USE SMARTSET 85205 03/12/202403/12, 03/05/2023, 03/29/2022, Additional history exists Pneumococcal [...] Procedure Name Priority Date/Time Associated Diagnosis Comments BRONCHOSCOPY 04/12/2023 1:29 PM EST documented in this encounter Results * BRONCHOSCOPY (04/12/2023 1:29 PM EST) 04/12/2023 1:29 PM EST Narrative Procedure Note Santa Law CRNP - 04/12/2023 1:29 PM EST [facility] Patient Name: Fawad Brunner Procedure Date: 04/12/2023 1:29 PM Date of : 1935 Admit Type: Outpatient Note Status:Finalized Date of : 1935 Admit Type: Outpatient Age: 87 Room: ENDO - ROOM 10 Gender: Male Note Status: Finalized Procedure: Bronchoscopy (EBUS) Indications: Adenopathy Providers: Tena Henry MD, Kat Velazco, RN Referring MD: Santa Law NP (Referring MD) Medicines: General Anesthesia Complications: No immediate complications Procedure: Pre-Anesthesia Assessment: - ASA Grade Assessment: III - A patient with severesystemic disease. After obtaining informed consent, the [id number] ([id number]) was introduced through the mouth, via the endotracheal tube (thepatient was intubated for the procedure) and advanced to the tracheobronchialtree. All instruments were visually inspected immediately before and after removal fromthe patient to ensure they are fully intact. The procedure was accomplishedwithout difficulty. The patient tolerated the procedure well. Findings & Specimens: The endotracheal tube is in good position. The visualized portion ofthe trachea is of normal caliber. The phoenix is sharp. The tracheobronchial tree was examined to atleast the first subsegmental level. Bronchial mucosa and anatomy are normal; there are no endobronchiallesions, and no secretions. Lymph Nodes: An endobronchial ultrasound endoscope was utilized tosystematically examine the left lower paratracheal region (level 4L), subcarinal mediastinum (level7) and right superior interlobar region (level 11Rs) in order to assist with fine needle aspiration.An endobronchial ultrasound-guided transbronchial needle aspiration was performed using a [employer] Expect 25 gauge needle and sent for routine cytology. Specimens were obtained from the 4L (lowerparatracheal), 7 (subcarinal) and 11Rs (superior interlobar) lymph nodes. 6-7 per node wereperformed. Rapid On-Site Evaluation (WAQAS): Preliminary cytology was suggestiveof atypical cells (final results are pending) in the left lower paratracheal region (level 4L),subcarinal mediastinum (level 7) and right superior interlobar region (level 11Rs). The cytology specimen was placed in Bottle A - 11Rs. The cytology specimen was placed in Bottle B - 7. The cytology specimen was placed in Bottle C - 4L. Impression: - Adenopathy - The airway examination was as above. - Endobronchial ultrasound was performed. - A transbronchial needle aspiration wasperformed. - Rapid On-Site Evaluation (WAQAS): Preliminarycytology was suggestive of atypical cells in node level 4L, node level 7 and node [id number] (final results are pending). Recommendation: - Await cytology results. Tena Henry MD 04/12/2023 2:54:33 PM This report has been signed electronically. [facility] documented in this encounter Visit Diagnoses Diagnosis Lung disorder Other diseases of lung, not elsewhere classified documented in this encounter Administered Medications Inactive Administered Medications - up to 3 most recent administrations Medication Order MAR Action Action Date Dose Rate Site oxygen GAS Inhalation, OXYGEN, First dose on Mon04/12/23 at 1600, Until Discontinued, Device/Managed by: Low Flow Device, Goal SPO2 (%): 91-95, Starting Device: Nasal Cannula, Initial Flow Rate (LPM): 2, Lowest Support: Nasal Cannula: Flow 0-6 LPM. Titrate up/down by 1 LPM., Titration Interval: Q2 minutes and as needed., Notify Provider: For sudden DECREASE in resting SPO2 to less than 85% and when escalating delivery device., Wean patient off Oxygen when the oxygen saturation is greater than or equal to 93% documented in this encounter Active and Recently Administered Medications Times are shown in EST. Scheduled Medication Order 04/10/2023 04/11/2023 04/12/2023 oxygen GAS Inhalation, OXYGEN, First dose on Mon04/12/23 at 1600, Until Discontinued, Device/Managed by: Low Flow Device, Goal SPO2 (%): 91-95, Starting Device: Nasal Cannula, Initial Flow Rate (LPM): 2, Lowest Support: Nasal Cannula: Flow 0-6 LPM. Titrate up/down by 1 LPM., Titration Interval: Q2 minutes and as needed., Notify Provider: For sudden DECREASE in resting SPO2 to less than 85% and when escalating delivery device., Wean patient off Oxygen when the oxygen saturation is greater than or equal to 93% 1600 (Due) Continuous Medication Order 04/10/2023 04/11/2023 04/12/2023 isolyte-S pH 7.4 infusion Intravenous, at 75 mL/hr, Plasma-LYTE 148, isolyte-S, and isolyte-S pH 7.4 are considered equivalent - including for MAR barcode scanning., CONTINUOUS, Starting on Mon04/12/23 at 1400, Until Mon04/12/23 at 1659, Pre-Op 1357 (New Bag - Prov ider: Christina Mata CRNA)1453 (Anes Intra-Op Fluid - Provider: Christina Mata CRNA) documented in this encounter
--- OUTSIDE RECORDS SUMMARY | 2023-06-01 12:56 | External Medical Summary | Summary of Care ---
Author Name Unknown Organization [facility] Address [address] [place] [address] Phone [phone] Care Team Providers Care Student Finance Advisor Name Role Phone Unavailable Primary Care Provider Unavailabl e Reason for Visit * Reason Onset Date Comments STAIR Lung Nodule 03/29/2023 Encounter Details Date Type Department Care Team (Late st Contact Info) Description 03/29/2023 Telephone STAIR LUNG NODULE [address] [place] [address] Santa Law CRNP [address] [place] [address] STAIR Lung Nodule Allergies No known active allergiesdocumented as of this encounter (statuses as of 03/29/2023) Medications Medication Sig Dispensed Refills Start Date End Date Status Multiple Vitamins-Minerals (MULTIVITAMIN ADULT) TABS Take by mouth. 0 Active Nitroglycerin 0.4 MG Sublingual Tablet Sublingual (Nitrostat)Indication s:Coronary artery disease involving [place] coronary artery of [place] heart without angina pectoris DISSOLVE ONE TABLET [...] as of this encounter (statuses as of 03/29/2023) Active Problems Problem Noted Date Diagnosed Date [...] stent 01/16/2003 Blindness, one eye 01/16/2003 FM [id number] DIS NEC 01/11/2002 documented as of this encounter (statuses as of 03/29/2023) Resolved Problems Problem Noted Date Diagnosed Date [...] as of this encounter (statuses as of 03/29/2023) Immunizations Name Administration Dates Next Due Diptheria/Tetanus (Adult) 09/08/2001 Pneumococcal Conjugate Vacci ne, 20-valent ([id number]) 01/11/2022 Seasonal Influenza, QUAD, wi th Preserv, [...] encounter Miscellaneous Notes * Telephone Encounter - Jean Carlos Tejeda OSA - 03/29/2023 2:48 PM EST Called and spoke with the patient's daughter, Teressa. Patient has been scheduled for an EBUS and possible radial EBUS and TBBx @ [facility] on 04/12/2023 at 2:30PM. Instructions 1. Nothing to eat or drink after midnight before the test. 2. Arrive 1 hour prior to the procedure. 3. Report to the Endoscopy Suite via the [facility] entrance. 4. Patient will be under general anesthesia and will need a operator and truck driver. Blood thinners? Yes Plavix -- stop 5 days prior (04/07) Reviewed that an Endo pre-assessment nurse will reach out to the patient prior to the procedure to go over additional details. She states understanding and has no questions. She was advised that if they have any questions, they are encouraged to call the clinic, #[phone]. Teressa requesting letter to be sent with instructions as well. * Telephone Encounter - Santa Law CRNP - 03/29/2023 2:39 PM EST Discussed RUL enlarging mass. Bronchoscopy was discussed by Brianna REYNOLDS 05/2022 with patientand daughter- they declined biopsy at that time. Spoke to daughter Teressa. Offered bronchoscopy for biopsy at [facility]. She tells me that she and her brother want to know what type of cancer their father has. Please schedule EBUS with possible radial EBUS with TBBx. Reviewed with Dr. Henry. Patient takes plavix. Discussed risks associated with biopsy including PTX and bleeding. Also discussed risk of anesthesia in this elderly gentleman. Teressa would like to schedule bronch. Please contact daughter. documented in this encounter Plan of Treatment Upcoming Encounters Date Type Department Care Team (Latest Contact Info) Description 04/12/2023 2:30 PM EST Hospital Encounter ENDO [facility], Endoscopy Suite, HFAM 1, [address] [place] [address] Kenyetta Henry MD [address] [place] [address] 04/12/2023 2:30 PM EST - 04/12/2023 4:00 PM EST Surgery ENDO [facility], Endoscopy Suite, HFAM 1, [address] [place] [address] Kenyetta Henry MD [address] [place], [place] [id number] BRONCHOSCOPY DIAGNOSTIC WITH OR WITHOUT WASHING 04/26/2023 10:00 AM EST Office Visit Cardiology, [facility] [address] [place] [address] Nica Benitez, FRANCHESCA [address] [place] [address] 05/31/2023 3:15 PM EST Office Visit Hematology/Oncology [facility] [address] [facility] [place] [place] [address] Marcial Mayer MD [address] [facility] [place] [place] [address] 06/19/2023 4:00 PM EDT Office Visit Family Practice [facility] [address] [place] [address] Bonilla Magdaleno MD [address] [place] [address] Scheduled Procedures Name Priority Associated Diagnoses Date/Ti [...] Screening 01/11/2023 01/11/2022 CKD PHOS USE SMARTSET 32822 03/29/202303/11, 02/17/2021, 10/09/2019, Additional history exists HbA1c 03/29/2023 03/29/2022, 01/08, 04/30/2018 CKD HGB USE SMARTSET 31736 03/12/202403/12, 03/05/2023, 03/29/2022, Additional history exists Pneumococcal [...]
--- OUTSIDE RECORDS SUMMARY | 2023-06-01 12:56 | External Medical Summary | Summary of Care ---
Author Name Unknown Organization [facility] Address [address] [facility] [place] [address] Phone [phone] Care Team Providers Care Adoption Services Manager Name Role Phone Unavailable Primary Care Provider Unavailabl e Reason for Visit * Reason Comments eRx-Medication Refill Encounter Details Date Type Department Care Team (Late st Contact Info) Description 03/28/2023 Refill Family Practice [facility] [address] [place] [address] Gabrielle Power MD [address] [place] [address] Routine medical exam*; Gastroesophageal reflux disease without esophagitis; Encounter for long-term (current) use of medications; Chronic kidney disease, stage 3a (HCC) Allergies No known active allergiesdocumented as of this encounter (statuses as of 03/29/2023) Medications Medication Sig Dispensed Refills Start Date End Date Status Multiple Vitamins-Minerals (MULTIVITAMIN ADULT) TABS Take by mouth. 0 Active Nitroglycerin 0.4 MG Sublingual Tablet Sublingual (Nitrostat)Indica tions:Coronary artery disease involving [place] coronary artery of [place] heart without angina pectoris DISSOLVE ONE TABLET [...] THE MORNING 30 Tablet 2 03/29/2023 Active Pantoprazole Sodium 40 MG Oral Tablet Delayed Release (Protonix)Indicat ions:Gastroesopha geal reflux disease without esophagitis TAKE 1 TABLET BY MOUTH IN THE MORNING 30 Tablet 2 12/30/2022 03/29/2023 Discontinued documented as of this encounter (statuses [...] stent 01/16/2003 Blindness, one eye 01/16/2003 FM [id number] DIS NEC 01/11/2002 documented as of this [...] (Adult) 09/08/2001 Pneumococcal Conjugate Vacci ne, 20-valent ([id number]) 01/11/2022 Seasonal Influenza, QUAD, wi th Preserv, [...] Telephone Encounter - Gabrielle Power MD - 03/29/2023 10:14 AM ESTSigned Prescriptions: Disp Refills Pantoprazole Sodium 40 MG Oral Tablet Griselda*30 Tab*2 Sig: TAKE 1 TABLET BY MOUTH IN THE MORNING Authorizing Provider: GABRIELLE POWER * Telephone Encounter - Yojana Galarza [facility] - 03/29/2023 10:13 AM EST Pending Prescriptions: Disp Refills Pantoprazole Sodium 40 MG Oral Tablet Griselda*30 Tab*2 Sig: TAKE 1 TABLET BY MOUTH IN THE MORNING * Telephone Encounter - Yojana Galarza [facility] - 03/29/2023 10:12 AM EST Upcoming OV. Please refill to hold if appropriate. Thank you, Yojana Galarza, PharmD Clinical Pharmacist [facility] ([facility]) (formerly Telepharmacy) 03/29/23 10:12 AM [phone] * Telephone Encounter - Yojana Galarza [facility] - 03/29/2023 10:12 AM EST Did you pend patient's preferred pharmacy and medication before forwarding?yes Pharmacy: [facility] [address] [place] [address] Pending Prescriptions: Disp Refills Pantoprazole Sodium 40 MG Oral Tablet Del*30 Tab*2 Sig: TAKE 1 TABLET BY MOUTH IN THE MORNING Last Visit: 03/20/2023 (in office), 02/17/2022 (telemedicine) Next Visit: 06/19/2023 If no future appointments scheduled, and last appointment is greater than a year ago, please schedule patient for a follow-up appointment Last date the medication was ordered: 12/30/22 Is this request for a controlled substance?No [...] 04/26/2023 10:00 AM EST Office Visit Cardiology, [facility] [address] [place] [address] Nica Benitez PA-C [address] [place] [address] 05/31/2023 3:15 PM EST Office Visit Hematology/Oncology [facility] [address] [facility] [place] [address] Marcial Mayer MD [address] [facility] [place] [address] 06/19/2023 4:00 PM EDT Office Visit Family Practice [facility] [address] [place] [address] Gabrielle Power MD 132 [facility] [place] [address] Scheduled Orders Name Type Priority Associated Diagnoses Orde r Schedule VITAMIN B12 Lab Routine Routine medical exam Encounter for long-term (current) use of medications Expected: 04/12/2023 (Approximate), Expires: 03/29/2024 ALBUMIN / CREATININE RATIO, URINE Lab Routine Routine medical exam Chronic kidney disease, stage 3a (HCC) Expected: 04/12/2023 (Approximate), Expires: 03/29/2024 Health Maintenance Due Date Last Done Comments COVID-19 Vaccine (#1) 1940 Albumin/Creatinine Ratio 1954 Zoster Vaccines (1 of 2) 12/24/1955 DTaP,Tdap,and Td Vaccines (2 - Td or Tdap) 06/28/2022 06/28/2012, 09/08/2001 Influenza Vaccine (FLU shot) (#1) 2022 01/11/2022, 02/26/2021, 01/14/2020, Additional history exists Depression Screening 01/11/2023 01/11/2022 CKD PHOS USE SMARTSET 03597 03/29/202303/11, 02/17/2021, 10/09/2019, Additional history exists HbA1c 03/29/2023 03/29/2022, 01/08, 04/30/2018 CKD HGB USE SMARTSET 68406 03/12/202403/12, 03/05/2023, 03/29/2022, Additional history exists Pneumococcal [...] this encounter Visit Diagnoses Diagnosis Routine medical exam- Primary Routine general medical examination at a [facility] care facility Gastroesophageal reflux disease without esophagitis Esophageal reflux Encounter for long-term (current) use of medications Encounter for long-term (current) use of other medications Chronic kidney disease, stage 3a (HCC) documented in this encounter
--- OUTSIDE RECORDS SUMMARY | 2023-06-01 12:56 | External Medical Summary | Summary of Care ---
Author Name Unknown Organization [facility] Address [address] [place] [address] Phone [phone] Care Team Providers Care Public Service Director Name Role Phone Unavailable Primary Care Provider Unavailabl e Reason for Visit * Reason Onset Date Comments Pre Procedure Assessment 04/06/2023 Encounter Details Date Type Department Care Team (Late st Contact Info) Description 04/06/2023 Telephone Gastroenterology, [place] [address] [place] [address] Kenyetta Henry MD [address] [place] [address] Pre Procedure Assessment Allergies No known active allergiesdocumented as of this encounter (statuses as of 04/06/2023) Medications Medication Sig Dispensed Refills Start Date End Date Status Multiple Vitamins-Minerals (MULTIVITAMIN ADULT) TABS Take by mouth. 0 Active Nitroglycerin 0.4 MG Sublingual Tablet Sublingual (Nitrostat)Indication s:Coronary artery disease involving [place] coronary artery of [place] heart without angina pectoris DISSOLVE ONE TABLET [...] stent 01/16/2003 Blindness, one eye 01/16/2003 FM [id number] DIS NEC 01/11/2002 documented as of this [...] (Adult) 09/08/2001 Pneumococcal Conjugate Vacci ne, 20-valent ([id number]) 01/11/2022 Pneumococcal Polysaccharide PPV23 (Pneumovax) 12/17/2004 Seasonal [...] the procedure. Patient instructed to bring a emt driver. Patient voiced no other concerns or [...] 04/12/2023 2:30 PM EST Hospital Encounter [facility], Endoscopy Suite, AM 1, [address] [place] [address] Kenyetta Henry MD [address] [place] [address] 04/12/2023 2:30 PM EST - 04/12/2023 4:00 PM EST Surgery [facility], Endoscopy Suite, [facility] 1, [address] [place], [place] [id number] Kenyetta Henry MD [address] [place], [place] [id number] BRONCHOSCOPY DIAGNOSTIC WITH OR WITHOUT WASHING 04/26/2023 10:00 AM EST Office Visit Cardiology, [facility] [address] [facility] [place] [address] Nica Benitez PA-C [address] [facility] [address] 05/31/2023 3:15 PM EST Office Visit Hematology/Oncology [facility] 200 [facility] [place] [address] Marcial Mayer MD [address] [facility] [place] [address] 06/19/2023 4:00 PM EDT Office Visit Family Practice [facility] [address] [facility] [place] [address] Bonilla Magdaleno MD 132 [facility] [place] [address] Scheduled Procedures Name Priority Associated Diagnoses Date/Ti [...] Screening 01/11/2023 01/11/2022 CKD PHOS USE SMARTSET 90107 03/29/2023 12/, 02/17/2021, 10/09/2019, Additional history exists HbA1c 03/29/2023 03/29/2022, 01/08, 04/30/2018 CKD HGB USE SMARTSET 66482 03/12/202403/12, 03/05/2023, 03/29/2022, Additional history exists Pneumococcal [...]
--- OUTSIDE RECORDS SUMMARY | 2023-06-01 12:57 | External Medical Summary | Summary of Care ---
Author Name Unknown Organization [facility] Address [address] [facility] [place] [address] Phone [phone] Care Team Providers Care Life Insurance Actuary Name Role Phone Joaquin Ramirez DO Primary Care Provider [phone] Encounter Details Date Type Department Care Team (Latest Contact Info) Description 08/27/2020 10:15 AM EDT - 08/27/2020 11:59 PM EDT Hospital Encounter Radiology Film File [address] [place] [facility] [place] [address] Discharge Disposition: Home - Self Care Allergies No known active allergiesdocumented as of this encounter (statuses as of 03/24/2023) Medications Medication Sig Dispensed Refills Start Date End Date Status Multiple Vitamins-Minerals (MULTIVITAMIN ADULT) TABS Take by mouth. 0 Active documented as of this encounter (statuses [...] stent 01/16/2003 Blindness, one eye 01/16/2003 FM [id number] DIS NEC 01/11/2002 documented as of this [...] Above, 0.5 mL, IM 01/14/2020 Seasonal Influenza, Split, I IV3, With Preserve, Inj 12/31/2012,12/19/2011,01/22/2011, 0 10,03/26/2009,04/24/2007 TDAP (age 10 and older)(Boostrix) 06/28/2012 documented [...] 04/26/2023 10:00 AM EST Office Visit Cardiology, [facility] [address] [place] [address] Nica Benitez PA-C 132 [facility] [place] [address] 05/31/2023 3:15 PM EST Office Visit Hematology/Oncology [facility] [place] [address] [place] [address] Marcial Mayer MD [address] [place] [address] 06/19/2023 4:00 PM EDT Office Visit Family Practice [facility] [place] [address] Bonilla Mackay MD [address] [place] [address] Health Maintenance Due Date Last Done Comments COVID-19 Vaccine (#1) 1940 Albumin/Creatinine Ratio 1954 Zoster Vaccines (1 of 2) 12/24/1955 DTaP,Tdap,and Td Vaccines (2 - Td or Tdap) 06/28/2022 06/28/2012, 09/08/2001 Influenza Vaccine (FLU shot) (#1) 2022 01/11/2022, 02/26/2021, 01/14/2020, Additional history exists Depression Screening 01/11/2023 01/11/2022 CKD PHOS USE SMARTSET 05003 03/29/202303/11, 02/17/2021, 10/09/2019, Additional history exists HbA1c 03/29/2023 03/29/2022, 01/08, 04/30/2018 CKD HGB USE SMARTSET 76324 03/12/202403/12, 03/05/2023, 03/29/2022, Additional history exists Pneumococcal [...] - GENERAL RAD (IMAGES ONLY,NO REPORT) Routine 08/27/2020 10:15 AM EDT documented in this encounter Results * RADIOLOGY EXAM - GENERAL RAD (IMAGES ONLY,NO REPORT) (08/27/2020 10:15 AM EDT) 08/27/2020 10:1 1 AM EDT Narrative Scheduling, Silent - 03/23/2023 3:48 PM EST This is an imaging study not interpreted or resulted by a [facility] or [facility] contracted radiologist. Bonilla Magdaleno MD RADIOLOGY (RAD [facility]) documented in this encounter Care Teams Life Insurance Actuary Relationship Specialty Start Date End Date Joaquin Ramirez DO PCP - General Family Medicine 11/02/18 02/22/23 documented as of this encounter
--- OUTSIDE RECORDS SUMMARY | 2023-06-01 12:57 | External Medical Summary | Summary of Care ---
Author Name Unknown Organization [facility] Address [address] [facility] [place] [address] Phone [phone] Care Team Providers Care Biscuit Packer Name Role Phone Unavailable Primary Care Provider Unavailabl e Encounter Details Date Type Department Care Team (Latest Contact Info) Description 03/01/2023 4:30 PM EST - 03/01/2023 11:59 PM EST Hospital Encounter Radiology Film File [address] [place] [address] Discharge Disposition: Home - Self Care Allergies No known active allergiesdocumented as of this encounter (statuses as of 03/24/2023) Medications Medication Sig Dispensed Refills Start Date End Date Status Multiple Vitamins-Minerals (MULTIVITAMIN ADULT) TABS Take by mouth. 0 Active Nitroglycerin 0.4 MG Sublingual Tablet Sublingual (Nitrostat)Indication s:Coronary artery disease involving [place] coronary artery of [...] 12/30/2022 Active Famotidine 20 MG Oral Tablet (Pepcid)Indications:G astroesophageal reflux disease without esophagitis TAKE 1 TABLET BY MOUTH ONCE DAILY NEEDED FOR HEART BURN 30 Tablet 0 01/26/2023 Active documented as of this encounter (statuses [...] stent 01/16/2003 Blindness, one eye 01/16/2003 FM [id number] DIS NEC 01/11/2002 documented as of this [...] (Adult) 09/08/2001 Pneumococcal Conjugate Vacci ne, 20-valent ([id number]) 01/11/2022 Seasonal Influenza, QUAD, wi th Preserv, [...] 04/26/2023 10:00 AM EST Office Visit Cardiology, [facility] [address] [address] Nica Benitez PA-C [address] [place] [address] 05/31/2023 3:15 PM EST Office Visit Hematology/Oncology [facility] 200 [facility] [place] [address] Marcial Mayer MD 200 [facility] [place] [address] 06/19/2023 4:00 PM EDT Office Visit Family Practice [facility] [address] [place] [address] Bonilla Magdaleno MD [address] [place] [address] Health Maintenance Due Date Last Done Comments COVID-19 Vaccine (#1) 1941 Albumin/Creatinine Ratio 1954 Zoster Vaccines (1 of 2) 12/24/1955 DTaP,Tdap,and Td Vaccines (2 - Td or Tdap) 06/28/2022 06/28/2012, 09/08/2001 Influenza Vaccine (FLU shot) (#1) 2022 01/11/2022, 02/26/2021, 01/14/2020, Additional history exists Depression Screening 01/11/2023 01/11/2022 CKD PHOS USE SMARTSET 79225 03/29/2023 12/, 02/17/2021, 10/09/2019, Additional history exists HbA1c 03/29/2023 03/29/2022, 01/08, 04/30/2018 CKD HGB USE SMARTSET 39928 03/12/202403/12, 03/05/2023, 03/29/2022, Additional history exists Pneumococcal [...] Date/Time Associated Diagnosis Comments RADIOLOGY EXAM - CT (IMAGES ONLY, NO REPORT) Routine 03/01/2023 4:30 PM EST documented in this encounter Results * RADIOLOGY EXAM - CT (IMAGES ONLY, NO REPORT) (03/01/2023 4:30 PM EST) 03/01/2023 4:27 PM EST Narrative Scheduling, Silent - 03/23/2023 3:50 PM EST This is an imaging study not interpreted or resulted by a [facility] or [facility] contracted radiologist. Bonilla Magdaleno MD RAD CT documented in this encounter
--- OUTSIDE RECORDS SUMMARY | 2023-06-01 12:57 | External Medical Summary | Summary of Care ---
Author Name Unknown Organization [facility] Address [address] [place] [address] Phone [phone] Care Team Providers Care Sports Athletic Trainer Name Role Phone Remberto Lorenzo DO Primary Care Provider [phone] Encounter Details Date Type Department Care Team (Latest Contact Info) Description 06/09/2018 12:35 PM EST - 06/09/2018 11:59 PM EST Hospital Encounter Radiology Film File [address] [facility] [place] [address] Discharge Disposition: Home - Self Care Allergies No known active allergiesdocumented as of this encounter (statuses as of 03/24/2023) Medications No known medicationsdocumented as of this encounter (statuses as of [...] stent 01/16/2003 Blindness, one eye 01/16/2003 FM [id number] DIS NEC 01/11/2002 documented as of this [...] Next Due Diptheria/Tetanus (Adult) 09/08/2001 Seasonal Influenza, Split, I IV3, With Preserve, [...] file Not on file Not on file COVID-19 Exposure Response Date Recorded In the last month, have you been in contact with someone who was confirmed or suspected to have Coronavirus / COVID-19? No / Unsure 11/14/2019 8:03 AM EDT documented as of this encounter Plan of Treatment Upcoming Encounters Date Type Department Care Team (Late st Contact Info) Description 04/26/2023 10:00 AM EST Office Visit Cardiology, [facility] [address] [place] [address] Nica Benitez PA-C [address] [place] [address] 05/31/2023 3:15 PM EST Office Visit Hematology/Oncology [facility] [place] [address] [place] [address] Marcial Mayer MD [address] [place] [address] 06/19/2023 4:00 PM EDT Office Visit Family Practice [facility] [address] [place] [address] Bonilla Magdaleno MD [address] [place] [address] Health Maintenance Due Date Last Done Comments COVID-19 Vaccine (#1) 1940 Albumin/Creatinine Ratio 1954 Zoster Vaccines (1 of 2) 12/24/1955 DTaP,Tdap,and Td Vaccines (2 - Td or Tdap) 06/28/2022 06/28/2012, 09/08/2001 Influenza Vaccine (FLU shot) (#1) 2022 01/11/2022, 02/26/2021, 01/14/2020, Additional history exists Depression Screening 01/11/2023 01/11/2022 CKD PHOS USE SMARTSET 02711 03/29/202303/11, 02/17/2021, 10/09/2019, Additional history exists HbA1c 03/29/2023 03/29/2022, 01/08, 04/30/2018 CKD HGB USE SMARTSET 11247 03/12/202403/12, 03/05/2023, 03/29/2022, Additional history exists Pneumococcal [...] - CT (IMAGES ONLY, NO REPORT) Routine 06/09/2018 12:35 PM EST documented in this encounter Results * RADIOLOGY EXAM - CT (IMAGES ONLY, NO REPORT) (06/09/2018 12:35 PM EST) 06/09/2018 12:3 3 PM EST Narrative Scheduling, Silent - 03/23/2023 4:06 PM EST This is an imaging study not interpreted or resulted by a [facility] or [facility] contracted radiologist. Bonilla Magdaleno MD RAD CT documented in this encounter Care Teams Sports Athletic Trainer Relationship Specialty Start Date End Date Remberto Lorenzo DO PCP - General 10/06/06 11/01/18 documented as of this encounter
--- OUTSIDE RECORDS SUMMARY | 2023-06-01 12:57 | External Medical Summary | Summary of Care ---
Author Name Unknown Organization [facility] Address [address] [facility] [place] [address] Phone [phone] Care Team Providers Care Parts Picker Name Role Phone Joaquin Ramirez DO Primary Care Provider [phone] Encounter Details Date Type Department Care Team (Latest Contact Info) Description 01/23/2021 9:55 AM EDT - 01/23/2021 11:59 PM EDT Hospital Encounter Radiology Film File [address] [facility] [place] [address] Discharge Disposition: Home - Self Care [...] stent 01/16/2003 Blindness, one eye 01/16/2003 FM [id number] DIS NEC 01/11/2002 documented as of this [...] 04/26/2023 10:00 AM EST Office Visit Cardiology, [facility] [address] [place] [address] Nica Benitez PA-C [facility] [place] [address] 05/31/2023 3:15 PM EST Office Visit Hematology/Oncology [place] De[place] [address] [place] [address] Marcial Mayer MD [address] [place] [address] 06/19/2023 4:00 PM EDT Office Visit Family Practice [facility] [place] [address] Bonilla Mackay MD [address] [place] [address] Health Maintenance Due Date Last Done Comments COVID-19 Vaccine (#1) 1941 Albumin/Creatinine Ratio 1954 Zoster Vaccines (1 of 2) 12/24/1955 DTaP,Tdap,and Td Vaccines (2 - Td or Tdap) 06/28/2022 06/28/2012, 09/08/2001 Influenza Vaccine (FLU shot) (#1) 2022 01/11/2022, 02/26/2021, 01/14/2020, Additional history exists Depression Screening 01/11/2023 01/11/2022 CKD PHOS USE SMARTSET 69882 03/29/202303/11, 02/17/2021, 10/09/2019, Additional history exists HbA1c 03/29/2023 03/29/2022, 01/08, 04/30/2018 CKD HGB USE SMARTSET 45928 03/12/202403/12, 03/05/2023, 03/29/2022, Additional history exists Pneumococcal [...] - GENERAL RAD (IMAGES ONLY,NO REPORT) Routine 01/23/2021 9:55 AM EDT documented in this encounter Results * RADIOLOGY EXAM - GENERAL RAD (IMAGES ONLY,NO REPORT) (01/23/2021 9:55 AM EDT) 01/23/2021 9:51 AM EDT Narrative Scheduling, Silent - 03/23/2023 3:46 PM EST This is an imaging study not interpreted or resulted by a [facility] or [facility] contracted radiologist. Bonilla Magdaleno MD RADIOLOGY (RAD [facility]) documented in this encounter Care Teams Parts Picker Relationship Specialty Start Date End Date Joaquin Ramirez DO PCP - General Family Medicine 11/02/18 02/22/23 documented as of this encounter
--- OUTSIDE RECORDS SUMMARY | 2023-06-01 12:57 | External Medical Summary | Summary of Care ---
Author Name Unknown Organization [facility] Address [address] [facility] [place] [address] Phone [phone] Care Team Providers Care Port Crane Operator Name Role Phone Joaquin Ramirez DO Primary Care Provider [phone] Encounter Details Date Type Department Care Team (Latest Contact Info) Description 08/24/2020 10:20 PM EDT - 08/24/2020 11:59 PM EDT Hospital Encounter Radiology Film File [address] [facility] [place] [address] Discharge Disposition: Home - Self Care [...] stent 01/16/2003 Blindness, one eye 01/16/2003 FM [id number] DIS NEC 01/11/2002 documented as of this [...] 04/26/2023 10:00 AM EST Office Visit Cardiology, [facility] [address] [place] [address] Nica Benitez PA-C 132 [facility] [place] [address] 05/31/2023 3:15 PM EST Office Visit Hematology/Oncology [place]oss[facility] De[place] [address] [place] [address] Marcial Mayer MD [address] [place] [address] 06/19/2023 4:00 PM EDT Office Visit Family Practice [facility] [place] [address] Bonilla Mackay MD [address] [place] [address] Health Maintenance Due Date Last Done Comments COVID-19 Vaccine (#1) 1941 Albumin/Creatinine Ratio 1954 Zoster Vaccines (1 of 2) 12/24/1955 DTaP,Tdap,and Td Vaccines (2 - Td or Tdap) 06/28/2022 06/28/2012, 09/08/2001 Influenza Vaccine (FLU shot) (#1) 2022 01/11/2022, 02/26/2021, 01/14/2020, Additional history exists Depression Screening 01/11/2023 01/11/2022 CKD PHOS USE SMARTSET 65867 03/29/202303/11, 02/17/2021, 10/09/2019, Additional history exists HbA1c 03/29/2023 03/29/2022, 01/08, 04/30/2018 CKD HGB USE SMARTSET 18483 03/12/202403/12, 03/05/2023, 03/29/2022, Additional history exists Pneumococcal [...] - GENERAL RAD (IMAGES ONLY,NO REPORT) Routine 08/24/2020 10:20 PM EDT documented in this encounter Results * RADIOLOGY EXAM - GENERAL RAD (IMAGES ONLY,NO REPORT) (08/24/2020 10:20 PM EDT) 08/24/2020 10:2 0 PM EDT Narrative Scheduling, Silent - 03/23/2023 11:19 AM EST This is an imaging study not interpreted or resulted by a [facility] or [facility] contracted radiologist. [facility] ([facility]) documented in this encounter Care Teams Port Crane Operator Relationship Specialty Start Date End Date Joaquin Ramirez DO PCP - General Family Medicine 11/02/18 02/22/23 documented as of this encounter
--- OUTSIDE RECORDS SUMMARY | 2023-06-01 12:57 | External Medical Summary | Summary of Care ---
Author Name Unknown Organization [facility] Address [address] [place] [address] Phone [phone] Care Team Providers Care Checking Department Supervisor Name Role Phone Unavailable Primary Care Provider Unavailabl e Reason for Visit * Reason Onset Date Comments STAIR Lung Nodule 03/20/2023 Encounter Details Date Type Department Care Team (Late st Contact Info) Description 03/20/2023 Telephone STAIR LUNG NODULE [address] [place], [place] [id number] Program, Stair [address] [place] [address] STAIR Lung Nodule Allergies No known active allergiesdocumented as of this encounter (statuses as of 03/21/2023) Medications Medication Sig Dispensed Refills Start Date End Date Status Multiple Vitamins-Minerals (MULTIVITAMIN ADULT) TABS Take by mouth. 0 Active Nitroglycerin 0.4 MG Sublingual Tablet Sublingual (Nitrostat)Indication s:Coronary artery disease involving [place] coronary artery of [place] heart without angina pectoris DISSOLVE ONE TABLET [...] as of this encounter (statuses as of 03/21/2023) Active Problems Problem Noted Date Diagnosed Date [...] stent 01/16/2003 Blindness, one eye 01/16/2003 FM [id number] DIS NEC 01/11/2002 documented as of this encounter (statuses as of 03/21/2023) Resolved Problems Problem Noted Date Diagnosed Date [...] as of this encounter (statuses as of 03/21/2023) Immunizations Name Administration Dates Next Due Diptheria/Tetanus (Adult) 09/08/2001 Pneumococcal Conjugate Vacci ne, 20-valent ([id number]) 01/11/2022 Pneumococcal Polysaccharide PPV23 (Pneumovax) 12/17/2004 Seasonal [...] encounter Miscellaneous Notes * Telephone Encounter - Lara Sheth LPN - 03/21/2023 2:11 PM EST Patient managed in STAIR Program for Pulmonary Nodule - banner added * Telephone Encounter - Lara Sheth LPN - 03/20/2023 3:11 PM EST Images requested from Fl Joelle documented in this encounter Plan of Treatment Upcoming Encounters Date Type Department Care Team (Late st Contact Info) Description 04/26/2023 10:00 AM EST Office Visit Cardiology, [facility] [place] [address] Nica Benitez PA-C [address] [place] [address] 05/31/2023 3:15 PM EST Office Visit Hematology/Oncology [place] De[place] [address] [place] [address] Marcial Mayer MD [address] [place] [address] 06/19/2023 4:00 PM EDT Office Visit Family Practice [facility] [address] [place] [address] Bonilla Magdaleno MD [address] [place] [address] Health Maintenance Due Date Last Done Comments COVID-19 Vaccine (#1) 1941 Albumin/Creatinine Ratio 1954 Zoster Vaccines (1 of 2) 12/24/1955 DTaP,Tdap,and Td Vaccines (2 - Td or Tdap) 06/28/2022 06/28/2012, 09/08/2001 Influenza Vaccine (FLU shot) (#1) 2022 01/11/2022, 02/26/2021, 01/14/2020, Additional history exists Depression Screening 01/11/2023 01/11/2022 CKD PHOS USE SMARTSET 37030 03/29/202303/11, 02/17/2021, 10/09/2019, Additional history exists HbA1c 03/29/2023 03/29/2022, 01/08, 04/30/2018 CKD HGB USE SMARTSET 62274 03/12/202403/12, 03/05/2023, 03/29/2022, Additional history exists Pneumococcal [...]
--- OUTSIDE RECORDS SUMMARY | 2023-06-01 12:57 | External Medical Summary | Summary of Care ---
Author Name Unknown Organization [facility] Address [address] [place] [address] Phone [phone] Care Team Providers Care Dinkey Engine Firer Name Role Phone Unavailable Primary Care Provider Unavailabl e Encounter Details Date Type Department Care Team (Late st Contact Info) Description 03/01/2023 Orders Only Pulmonary Medicine, [place] [address] [place] [address] Santa Law CRNP [address] [place] [address] Allergies No known active allergiesdocumented as of this encounter (statuses as of 03/23/2023) Medications Medication Sig Dispensed Refills Start Date End Date Status Multiple Vitamins-Minerals (MULTIVITAMIN ADULT) TABS Take by mouth. 0 Active Nitroglycerin 0.4 MG Sublingual Tablet Sublingual (Nitrostat)Indication s:Coronary artery disease involving [place] coronary artery of [place] heart without angina pectoris DISSOLVE ONE TABLET [...] as of this encounter (statuses as of 03/23/2023) Active Problems Problem Noted Date Diagnosed Date [...] stent 01/16/2003 Blindness, one eye 01/16/2003 FM [id number] DIS NEC 01/11/2002 documented as of this encounter (statuses as of 03/23/2023) Resolved Problems Problem Noted Date Diagnosed Date [...] as of this encounter (statuses as of 03/23/2023) Immunizations Name Administration Dates Next Due Diptheria/Tetanus (Adult) 09/08/2001 Pneumococcal Conjugate Vacci ne, 20-valent ([id number]) 01/11/2022 Seasonal Influenza, QUAD, wi th Preserv, [...] 10:00 AM EST Office Visit Cardiology, [facility] [address] [place] [address] Nica Benitez PA-C [address] [place] [address] 05/31/2023 3:15 PM EST Office Visit Hematology/Oncology [facility] [address] [facility] [place] [address] Marcial Mayer MD [address] [facility] [place] [address] 06/19/2023 4:00 PM EDT Office Visit Family Practice [facility] [address] [place] [address] Bonilla Magdaleno MD [address] [place] [address] Health Maintenance Due Date Last Done Comments COVID-19 Vaccine (#1) 1941 Albumin/Creatinine Ratio 1954 Zoster Vaccines (1 of 2) 12/24/1955 DTaP,Tdap,and Td Vaccines (2 - Td or Tdap) 06/28/2022 06/28/2012, 09/08/2001 Influenza Vaccine (FLU shot) (#1) 2022 01/11/2022, 02/26/2021, 01/14/2020, Additional history exists Depression Screening 01/11/2023 01/11/2022 CKD PHOS USE SMARTSET 00250 03/29/202303/11, 02/17/2021, 10/09/2019, Additional history exists HbA1c 03/29/2023 03/29/2022, 01/08, 04/30/2018 CKD HGB USE SMARTSET 64716 03/12/202403/12, 03/05/2023, 03/29/2022, Additional history exists Pneumococcal [...] - GENERAL RAD (IMAGES ONLY,NO REPORT) Routine 03/01/2023 1:35 PM EST documented in this encounter Results * RADIOLOGY EXAM - GENERAL RAD (IMAGES ONLY,NO REPORT) (03/01/2023 1:35 PM EST) 03/01/2023 1:31 PM EST Narrative Scheduling, Silent - 03/23/2023 12:20 PM EST This is an imaging study not interpreted or resulted by a [facility] or [facility] contracted radiologist. [facility] (RAD [facility]) documented in this encounter
--- OUTSIDE RECORDS SUMMARY | 2023-06-01 12:57 | External Medical Summary | Summary of Care ---
Author Name Unknown Organization [facility] Address [address] [facility] [place] [address] Phone [phone] Care Team Providers Care Woods Manager Name Role Phone Unavailable Primary Care Provider Unavailabl e Encounter Details Date Type Department Care Team (Late st Contact Info) Description 03/01/2023 Orders Only Family Practice [facility] [address] [place] [address] Bonilla Magdaleno MD [address] [place] [address] Allergies No known active allergiesdocumented as of this encounter (statuses as of 03/23/2023) Medications Medication Sig Dispensed Refills Start Date End Date Status Multiple Vitamins-Minerals (MULTIVITAMIN ADULT) TABS Take by mouth. 0 Active Nitroglycerin 0.4 MG Sublingual Tablet Sublingual (Nitrostat)Indication s:Coronary artery disease involving [place] coronary artery of [place] heart without angina pectoris DISSOLVE ONE TABLET [...] stent 01/16/2003 Blindness, one eye 01/16/2003 FM [id number] DIS NEC 01/11/2002 documented as of this [...] (Adult) 09/08/2001 Pneumococcal Conjugate Vacci ne, 20-valent ([id number]) 01/11/2022 Seasonal Influenza, QUAD, wi th Preserv, [...] 04/26/2023 10:00 AM EST Office Visit Cardiology, [facility] [address] [place] [address] Nica Benitez PA-C [address] [place] [address] 05/31/2023 3:15 PM EST Office Visit Hematology/Oncology [facility] [address] [facility] [place] [address] Marcial Mayer MD [address] [facility] [place] [address] 06/19/2023 4:00 PM EDT Office Visit Family Practice [facility] [address] [place] [address] Bonilla Magdaleno MD [address] [place] [address] Health Maintenance Due Date Last Done Comments COVID-19 Vaccine (#1) 1941 Albumin/Creatinine Ratio 1954 Zoster Vaccines (1 of 2) 12/24/1955 DTaP,Tdap,and Td Vaccines (2 - Td or Tdap) 06/28/2022 06/28/2012, 09/08/2001 Influenza Vaccine (FLU shot) (#1) 2022 01/11/2022, 02/26/2021, 01/14/2020, Additional history exists Depression Screening 01/11/2023 01/11/2022 CKD PHOS USE SMARTSET 10915 03/29/202303/11, 02/17/2021, 10/09/2019, Additional history exists HbA1c 03/29/2023 03/29/2022, 01/08, 04/30/2018 CKD HGB USE SMARTSET 82473 03/12/202403/12, 03/05/2023, 03/29/2022, Additional history exists Pneumococcal [...]
--- OUTSIDE RECORDS SUMMARY | 2023-06-01 12:57 | External Medical Summary | Summary of Care ---
Author Name Unknown Organization [facility] Address [address] [facility] [place] [address] Phone [phone] Care Team Providers Care Multi Township Assessor Name Role Phone Unavailable Primary Care Provider Unavailabl e Encounter Details Date Type Department Care Team (Latest Contact Info) Description 03/01/2023 1:35 PM EST - 03/01/2023 4:29 PM EST Hospital Encounter Radiology Film File [address] [place] [address] Discharge Disposition: Home - Self Care Allergies No known active allergiesdocumented as of this encounter (statuses as of 03/24/2023) Medications Medication Sig Dispensed Refills Start Date End Date Status Multiple Vitamins-Minerals (MULTIVITAMIN ADULT) TABS Take by mouth. 0 Active Nitroglycerin 0.4 MG Sublingual Tablet Sublingual (Nitrostat)Indication s:Coronary artery disease involving [place] coronary artery of [...] stent 01/16/2003 Blindness, one eye 01/16/2003 FM [id number] DIS NEC 01/11/2002 documented as of this [...] (Adult) 09/08/2001 Pneumococcal Conjugate Vacci ne, 20-valent ([id number]) 01/11/2022 Seasonal Influenza, QUAD, wi th Preserv, [...] 04/26/2023 10:00 AM EST Office Visit Cardiology, [facility] [address] [address] Nica Benitez PA-C [address] [place] [address] 05/31/2023 3:15 PM EST Office Visit Hematology/Oncology [facility] [address] Marcial Mayer MD [address] [facility] [address] 06/19/2023 4:00 PM EDT Office Visit Family Practice [facility] [address] [place] [address] Bonilla Magdaleno MD [address] [place] [address] Health Maintenance Due Date Last Done Comments COVID-19 Vaccine (#1) 1941 Albumin/Creatinine Ratio 1954 Zoster Vaccines (1 of 2) 12/24/1955 DTaP,Tdap,and Td Vaccines (2 - Td or Tdap) 06/28/2022 06/28/2012, 09/08/2001 Influenza Vaccine (FLU shot) (#1) 2022 01/11/2022, 02/26/2021, 01/14/2020, Additional history exists Depression Screening 01/11/2023 01/11/2022 CKD PHOS USE SMARTSET 30971 03/29/2023 12/2 , 02/17/2021, 10/09/2019, Additional history exists HbA1c 03/29/2023 03/29/2022, 01/08, 04/30/2018 CKD HGB USE SMARTSET 69872 03/12/202403/12, 03/05/2023, 03/29/2022, Additional history exists Pneumococcal [...] [facility] contracted radiologist. [facility] (RAD [facility]) documented in this encounter
--- OUTSIDE RECORDS SUMMARY | 2023-06-01 12:57 | External Medical Summary | Summary of Care ---
Author Name Unknown Organization [facility] Address [address] [facility] [place] [place] [address] Phone [phone] Care Team Providers Care Meat Curer Name Role Phone Joaquin Ramirez DO Primary Care Provider [phone] Encounter Details Date Type Department Care Team (Latest Contact Info) Description 02/10/2021 5:40 PM EDT - 02/10/2021 11:59 PM EDT Hospital Encounter Radiology Film File [address] [facility] [place] [address] Discharge Disposition: Home - Self Care [...] stent 01/16/2003 Blindness, one eye 01/16/2003 FM [id number] DIS NEC 01/11/2002 documented as of this [...] 04/26/2023 10:00 AM EST Office Visit Cardiology, [facility] [address] [place] [address] Nica Benitez PA-C 132 [facility] [place] [address] 05/31/2023 3:15 PM EST Office Visit Hematology/Oncology [facility] [place] [address] [place] [address] Marcial Mayer MD [address] [place] [address] 06/19/2023 4:00 PM EDT Office Visit Family Practice [facility] [place] [address] Bonilla Mackay MD [address] [place] [address] Health Maintenance Due Date Last Done Comments COVID-19 Vaccine (#1) 1941 Albumin/Creatinine Ratio 1954 Zoster Vaccines (1 of 2) 12/24/1955 DTaP,Tdap,and Td Vaccines (2 - Td or Tdap) 06/28/2022 06/28/2012, 09/08/2001 Influenza Vaccine (FLU shot) (#1) 2022 01/11/2022, 02/26/2021, 01/14/2020, Additional history exists Depression Screening 01/11/2023 01/11/2022 CKD PHOS USE SMARTSET 75225 03/29/202303/11, 02/17/2021, 10/09/2019, Additional history exists HbA1c 03/29/2023 03/29/2022, 01/08, 04/30/2018 CKD HGB USE SMARTSET 36252 03/12/202403/12, 03/05/2023, 03/29/2022, Additional history exists Pneumococcal [...] - GENERAL RAD (IMAGES ONLY,NO REPORT) Routine 02/10/2021 5:40 PM EDT documented in this encounter Results * RADIOLOGY EXAM - GENERAL RAD (IMAGES ONLY,NO REPORT) (02/10/2021 5:40 PM EDT) 02/10/2021 5:40 PM EDT Narrative Scheduling, Silent - 03/23/2023 11:21 AM EST This is an imaging study not interpreted or resulted by a [facility] or [facility] contracted radiologist. [facility] ([facility]) documented in this encounter Care Teams Meat Curer Relationship Specialty Start Date End Date Joaquin Ramirez DO PCP - General Family Medicine 11/02/18 02/22/23 documented as of this encounter
--- OUTSIDE RECORDS SUMMARY | 2023-06-01 12:57 | External Medical Summary | Summary of Care ---
Author Name Unknown Organization [facility] Address [address] [place] [address] Phone [phone] Care Team Providers Care Tank Truck Driver Name Role Phone Remberto Lorenzo DO Primary Care Provider [phone] Encounter Details Date Type Department Care Team (Latest Contact Info) Description 06/09/2018 5:25 AM EST - 06/09/2018 12:34 PM EST Hospital Encounter Radiology Film File [address] [facility] [place] [address] Discharge Disposition: Home - [...] stent 01/16/2003 Blindness, one eye 01/16/2003 FM [id number] DIS NEC 01/11/2002 documented as of this [...] 04/26/2023 10:00 AM EST Office Visit Cardiology, [facility] [address] [place] [address] Nica Benitez PA-C [address] [place] [address] 05/31/2023 3:15 PM EST Office Visit Hematology/Oncology [place] De[place] [address] [place] [address] Marcial Mayer MD [address] [place] [address] 06/19/2023 4:00 PM EDT Office Visit Family Practice [facility] [address] [place] [address] Bonilla Magdaleno MD [address] [place] [address] Health Maintenance Due Date Last Done Comments COVID-19 Vaccine (#1) 1941 Albumin/Creatinine Ratio 1954 Zoster Vaccines (1 of 2) 12/24/1955 DTaP,Tdap,and Td Vaccines (2 - Td or Tdap) 06/28/2022 06/28/2012, 09/08/2001 Influenza Vaccine (FLU shot) (#1) 2022 01/11/2022, 02/26/2021, 01/14/2020, Additional history exists Depression Screening 01/11/2023 01/11/2022 CKD PHOS USE SMARTSET 91192 03/29/202303/11, 02/17/2021, 10/09/2019, Additional history exists HbA1c 03/29/2023 03/29/2022, 01/08, 04/30/2018 CKD HGB USE SMARTSET 12811 03/12/202403/12, 03/05/2023, 03/29/2022, Additional history exists Pneumococcal [...] CT (IMAGES ONLY, NO REPORT) Routine 06/09/2018 5:25 AM EST documented in this encounter Results * RADIOLOGY EXAM - CT (IMAGES ONLY, NO REPORT) (06/09/2018 5:25 AM EST) 06/09/2018 5:24 AM EST Narrative Scheduling, Silent - 03/23/2023 12:25 PM EST This is an imaging study not interpreted or resulted by a [facility] or [facility] contracted radiologist. [facility] REYNOLDS RAD CT documented in this encounter Care Teams Tank Truck Driver Relationship Specialty Start Date End Date Remberto Lorenzo DO PCP - General 10/06/06 11/01/18 documented as of this encounter
--- OUTSIDE RECORDS SUMMARY | 2023-06-01 12:57 | External Medical Summary | Summary of Care ---
Author Name Unknown Organization [facility] Address [address] [place] [address] Phone [phone] Care Team Providers Care Thermometer Tester Name Role Phone Remberto Lorenzo DO Primary Care Provider [phone] Encounter Details Date Type Department Care Team (Latest Contact Info) Description 06/09/2018 4:40 AM EST - 06/09/2018 5:24 AM EST Hospital Encounter Radiology Film File [address] [facility] [place] [address] Discharge Disposition: Home - [...] stent 01/16/2003 Blindness, one eye 01/16/2003 FM [id number] DIS NEC 01/11/2002 documented as of this [...] 04/26/2023 10:00 AM EST Office Visit Cardiology, [facility] [address] [place] [address] Nica Benitez PA-C [address] [place] [address] 05/31/2023 3:15 PM EST Office Visit Hematology/Oncology [place] [address] [place] [address] Marcial Mayer MD [address] [place] [address] 06/19/2023 4:00 PM EDT Office Visit Family Practice [facility] [address] [place] [address] Bonilla Magdaleno MD [address] [place] [address] Health Maintenance Due Date Last Done Comments COVID-19 Vaccine (#1) 1941 Albumin/Creatinine Ratio 1954 Zoster Vaccines (1 of 2) 12/24/1955 DTaP,Tdap,and Td Vaccines (2 - Td or Tdap) 06/28/2022 06/28/2012, 09/08/2001 Influenza Vaccine (FLU shot) (#1) 2022 01/11/2022, 02/26/2021, 01/14/2020, Additional history exists Depression Screening 01/11/2023 01/11/2022 CKD PHOS USE SMARTSET 41317 03/29/202303/11, 02/17/2021, 10/09/2019, Additional history exists HbA1c 03/29/2023 03/29/2022, 01/08, 04/30/2018 CKD HGB USE SMARTSET 65895 03/12/202403/12, 03/05/2023, 03/29/2022, Additional history exists Pneumococcal [...] - GENERAL RAD (IMAGES ONLY,NO REPORT) Routine 06/09/2018 4:40 AM EST documented in this encounter Results * RADIOLOGY EXAM - GENERAL RAD (IMAGES ONLY,NO REPORT) (06/09/2018 4:40 AM EST) 06/09/2018 4:38 AM EST Narrative Scheduling, Silent - 03/23/2023 12:21 PM EST This is an imaging study not interpreted or resulted by a [employer] or [facility] contracted radiologist. [facility] (RAD [facility]) documented in this encounter Care Teams Thermometer Tester Relationship Specialty Start Date End Date Remberto Lorenzo DO PCP - General 10/06/06 11/01/18 documented as of this encounter
--- OUTSIDE RECORDS SUMMARY | 2023-06-01 12:57 | External Medical Summary | Summary of Care ---
Author Name Unknown Organization [facility] Address [address] [facility] [place] [address] Phone [phone] Care Team Providers Care Staff Electronic Warfare Officer Name Role Phone Joaquin Ramirez DO Primary Care Provider [phone] Encounter Details Date Type Department Care Team (Latest Contact Info) Description 01/26/2021 8:20 AM EDT - 01/26/2021 11:59 PM EDT Hospital Encounter Radiology Film File [address] [facility] [place] [address] Discharge Disposition: Home - Self Care [...] stent 01/16/2003 Blindness, one eye 01/16/2003 FM [id number] DIS NEC 01/11/2002 documented as of this [...] 10:00 AM EST Office Visit Cardiology, [facility] [address] [place] [address] Nica Benitez PA-C 132 [facility] [place] [address] 05/31/2023 3:15 PM EST Office Visit Hematology/Oncology [place] [address] [place] [address] Marcial Mayer MD [address] [place] [address] 06/19/2023 4:00 PM EDT Office Visit Family Practice [facility] [place] [address] Bonilla Mackay MD [address] [place] [address] Health Maintenance Due Date Last Done Comments COVID-19 Vaccine (#1) 1941 Albumin/Creatinine Ratio 1954 Zoster Vaccines (1 of 2) 12/24/1955 DTaP,Tdap,and Td Vaccines (2 - Td or Tdap) 06/28/2022 06/28/2012, 09/08/2001 Influenza Vaccine (FLU shot) (#1) 2022 01/11/2022, 02/26/2021, 01/14/2020, Additional history exists Depression Screening 01/11/2023 01/11/2022 CKD PHOS USE SMARTSET 04987 03/29/202303/11, 02/17/2021, 10/09/2019, Additional history exists HbA1c 03/29/2023 03/29/2022, 01/08, 04/30/2018 CKD HGB USE SMARTSET 61253 03/12/202403/12, 03/05/2023, 03/29/2022, Additional history exists Pneumococcal [...] - GENERAL RAD (IMAGES ONLY,NO REPORT) Routine 01/26/2021 8:20 AM EDT documented in this encounter Results * RADIOLOGY EXAM - GENERAL RAD (IMAGES ONLY,NO REPORT) (01/26/2021 8:20 AM EDT) 01/26/2021 8:18 AM EDT Narrative Scheduling, Silent - 03/23/2023 12:23 PM EST This is an imaging study not interpreted or resulted by a [facility] or [facility] contracted radiologist. [facility] (RAD [facility]) documented in this encounter Care Teams Staff Electronic Warfare Officer Relationship Specialty Start Date End Date Joaquin Ramirez DO PCP - General Family Medicine 11/02/18 02/22/23 documented as of this encounter
--- OUTSIDE RECORDS SUMMARY | 2023-06-01 12:57 | External Medical Summary | Summary of Care ---
Author Name Unknown Organization [facility] Address [address] [facility] [place] [address] Phone [phone] Care Team Providers Care Production Support Engineer Name Role Phone Joaquin Ramirez DO Primary Care Provider [phone] Encounter Details Date Type Department Care Team (Latest Contact Info) Description 12/30/2021 3:05 AM EDT - 12/30/2021 11:59 PM EDT Hospital Encounter Radiology Film File [address] [place] [facility] [place] [address] Discharge Disposition: Home - Self Care Allergies No known active allergiesdocumented as of this encounter (statuses as of 03/24/2023) Medications Medication Sig Dispensed Refills Start Date End Date Status Multiple Vitamins-Minerals (MULTIVITAMIN ADULT) TABS Take by mouth. 0 Active Nitroglycerin 0.4 MG Sublingual Tablet Sublingual (Nitrostat)Indicatio ns:Coronary artery disease involving [place] coronary artery of [place] heart without angina pectoris DISSOLVE ONE TABLET [...] stent 01/16/2003 Blindness, one eye 01/16/2003 FM [id number] DIS NEC 01/11/2002 documented as of this [...] 04/26/2023 10:00 AM EST Office Visit Cardiology, [facility] [address] [place] [address] Nica Benitez PA-C [address] [place] [address] 05/31/2023 3:15 PM EST Office Visit [facility] [place] [address] [facility] [place] [address] Marcial Mayer MD [address] [place] [address] 06/19/2023 4:00 PM EDT Office Visit Family Practice [facility] [address] [place] [address] Bonilla Magdaleno MD [address] [place] [address] Health Maintenance Due Date Last Done Comments COVID-19 Vaccine (#1) 1941 Albumin/Creatinine Ratio 1954 Zoster Vaccines (1 of 2) 12/24/1955 DTaP,Tdap,and Td Vaccines (2 - Td or Tdap) 06/28/2022 06/28/2012, 09/08/2001 Influenza Vaccine (FLU shot) (#1) 2022 01/11/2022, 02/26/2021, 01/14/2020, Additional history exists Depression Screening 01/11/2023 01/11/2022 CKD PHOS USE SMARTSET 39545 03/29/202303/11, 02/17/2021, 10/09/2019, Additional history exists HbA1c 03/29/2023 03/29/2022, 01/08, 04/30/2018 CKD HGB USE SMARTSET 93732 03/12/202403/12, 03/05/2023, 03/29/2022, Additional history exists Pneumococcal [...] - CT (IMAGES ONLY, NO REPORT) Routine 12/30/2021 3:05 AM EDT documented in this encounter Results * RADIOLOGY EXAM - CT (IMAGES ONLY, NO REPORT) (12/30/2021 3:05 AM EDT) 12/30/2021 2:53 AM EDT Narrative Scheduling, Silent - 03/23/2023 4:08 PM EST This is an imaging study not interpreted or resulted by a [facility] or [facility] contracted radiologist. Bonilla Magdaleno MD RAD CT documented in this encounter Care Teams Production Support Engineer Relationship Specialty Start Date End Date Joaquin Ramirez DO PCP - General Family Medicine 11/02/18 02/22/23 documented as of this encounter
--- OUTSIDE RECORDS SUMMARY | 2023-06-01 12:58 | External Medical Summary ---
Author Name Unknown Address Unknown Organization [facility] [facility] [address] [place] [address] Laboratory Report Ordering Provider Test Date Status HY,DEPAMPHILIS 03/12/2023 05:40:00 Final Observation Date Value Abnormality Reference (Units ) Status BUN 03/12/2023 05:40:00 16 6-20 (mg/dL) Final Creatinine 03/12/2023 05:40:00 1.4 Above high normal 0.6-1.2 (mg/dL) Final Glomerular filtration rate/1.73 sq M.predicted [Volume Rate/Area] in Serum, Plasma or Blood by Creatinine-based formula (CKD-EPI) 03/12/2023 05:40:00 51 Below low normal >=60 (mL/min) Final eGFR is calculated based on the CKD-EPI 2020 equation SODIUM 03/12/2023 05:40:00 136 135-146 (m mol/L) Final Potassium 03/12/2023 05:40:00 4.4 3.5-5.1 (m mol/L) Final Cl 03/12/2023 05:40:00 100 98-107 (mm ol/L) Final CO2 03/12/2023 05:40:00 27 22-32 (mmo l/L) Final Anion gap 03/12/2023 05:40:00 9 7-15 (mmol /L) Final Glucose 03/12/2023 05:40:00 83 70-120 (mg /dL) Final Calcium 03/12/2023 05:40:00 9.6 8.4-10.2 ( mg/dL) Final Performing Location [facility] [place] [address] [place] [address]
--- OUTSIDE RECORDS SUMMARY | 2023-06-01 12:58 | External Medical Summary | Summary of Care ---
Author Name Unknown Organization [facility] Address [address] [facility] [place] [address] Phone [phone] Care Team Providers Care Environmental Law Professor Name Role Phone Unavailable Primary Care Provider Unavailabl e Reason for Visit * Reason Onset Date Comments Hospital Follow-Up 03/06/2023 No MATT needed Encounter Details Date Type Department Care Team (Late st Contact Info) Description 03/06/2023 Telephone Ancillary [facility] [address] [facility] [place] [place] [address] Mary Jama, RN Hospital Follow-Up (No MATT needed) Allergies No known active allergiesdocumented as of this encounter (statuses as of 03/06/2023) Medications Medication Sig Dispensed Refills Start Date End Date Status Multiple Vitamins-Minerals (MULTIVITAMIN ADULT) TABS Take by mouth. 0 Active Nitroglycerin 0.4 MG Sublingual Tablet Sublingual (Nitrostat)Indication s:Coronary artery disease involving [place] coronary artery of [place] heart without angina pectoris DISSOLVE ONE TABLET [...] as of this encounter (statuses as of 03/06/2023) Active Problems Problem Noted Date Diagnosed Date [...] stent 01/16/2003 Blindness, one eye 01/16/2003 FM [id number] DIS NEC 01/11/2002 documented as of this encounter (statuses as of 03/06/2023) Resolved Problems Problem Noted Date Diagnosed Date [...] as of this encounter (statuses as of 03/06/2023) Immunizations Name Administration Dates Next Due Diptheria/Tetanus (Adult) 09/08/2001 Pneumococcal Conjugate Vacci ne, 20-valent ([id number]) 01/11/2022 Seasonal Influenza, QUAD, wi th Preserv, [...] encounter Miscellaneous Notes * Telephone Encounter - Mary Jama RN - 03/06/2023 8:14 AM EST Transitions of Care Note Reason for Referral:Recent Admission Phone visit for follow up: Inpatient Hospitalization Admitted to: [facility], Date: 03/01 Discharged to: inpt rehab, Date: 03/04 MATT call not indicated due to dc to inpt rehab. Mary Jama RN documented in this encounter Plan of Treatment Upcoming Encounters Date Type Department Care Team (Late st Contact Info) Description 04/26/2023 10:00 AM EST Office Visit Cardiology, [facility] 132 [facility] [place] [address] Nica Benitez PA-C 132 [facility] [place] [address] 05/31/2023 3:15 PM EST Office Visit Hematology/Oncology [place] [address] [place] [address] Marcial Mayer MD 200 [facility] [place] [address] Health Maintenance Due Date Last Done Comments COVID-19 Vaccine (#1) 1941 Albumin/Creatinine Ratio 1954 Zoster Vaccines (1 of 2) 12/24/1955 DTaP,Tdap,and Td Vaccines (2 - Td or Tdap) 06/28/2022 06/28/2012, 09/08/2001 Influenza Vaccine (FLU shot) (#1) 2022 01/11/2022, 02/26/2021, 01/14/2020, Additional history exists Depression Screening 01/11/2023 01/11/2022 CKD PHOS USE SMARTSET 13659 03/29/202303/11, 02/17/2021, 10/09/2019, Additional history exists HbA1c 03/29/2023 03/29/2022, 01/08, 04/30/2018 CKD HGB USE SMARTSET 83362 03/05/202403/05, 03/29/2022, 03/29/2022, Additional history exists Pneumococcal Vaccine: 65+ [...]
--- OUTSIDE RECORDS SUMMARY | 2023-06-01 12:58 | External Medical Summary | Summary of Care ---
Author Name Unknown Organization [facility] Address [address] [facility] [place] [address] Phone [phone] Care Team Providers Care Sales Agent [employer] Insurance Name Role Phone Unavailable Primary Care Provider Unavailabl e Encounter Details Date Type Department Care Team (Late st Contact Info) Description 03/20/2023 Telephone Family Practice [facility] [address] [place] [address] Nunu Reyes CRNP [address] [facility] [place] [address] Allergies No known active allergiesdocumented as of this encounter (statuses as of 03/21/2023) Medications Medication Sig Dispensed Refills Start Date End Date Status Multiple Vitamins-Minerals (MULTIVITAMIN ADULT) TABS Take by mouth. 0 Active Nitroglycerin 0.4 MG Sublingual Tablet Sublingual (Nitrostat)Indication s:Coronary artery disease involving [place] coronary artery of [place] heart without angina pectoris DISSOLVE ONE [...] stent 01/16/2003 Blindness, one eye 01/16/2003 FM [id number] DIS NEC 01/11/2002 documented as of this [...] (Adult) 09/08/2001 Pneumococcal Conjugate Vacci ne, 20-valent ([id number]) 01/11/2022 Seasonal Influenza, QUAD, wi th Preserv, [...] encounter Miscellaneous Notes * Telephone Encounter - Raquel Ryder OSA - 03/21/2023 10:56 AM EST LMOM to offer sooner. * Telephone Encounter - Holger Montgomery OSA - 03/20/2023 3:17 PM EST Pt saw Nunu REYNOLDS for a HD visit, provider asked if pt could be seen with HEM/ONC sooner than currently scheduled. Please call pt to schedule documented in this encounter Plan of Treatment Upcoming Encounters Date Type Department Care Team (Late st Contact Info) Description 04/26/2023 10:00 AM EST Office Visit Cardiology, [facility] 132 [facility] [place] [address] Nica Benitez PA-C 132 [facility] [place] [address] 05/31/2023 3:15 PM EST Office Visit Hematology/Oncology Jossy Deleon [place] [address] [place] [address] Marcial Mayer MD [address] [place] [address] 06/19/2023 4:00 PM EDT Office Visit Family Practice [facility] [address] [place] [address] Bonilla Magdaleno MD [address] [place] [address] Health Maintenance Due Date Last Done Comments COVID-19 Vaccine (#1) 1941 Albumin/Creatinine Ratio 1954 Zoster Vaccines (1 of 2) 12/24/1955 DTaP,Tdap,and Td Vaccines (2 - Td or Tdap) 06/28/2022 06/28/2012, 09/08/2001 Influenza Vaccine (FLU shot) (#1) 2022 01/11/2022, 02/26/2021, 01/14/2020, Additional history exists Depression Screening 01/11/2023 01/11/2022 CKD PHOS USE SMARTSET 51558 03/29/202303/11, 02/17/2021, 10/09/2019, Additional history exists HbA1c 03/29/2023 03/29/2022, 01/08, 04/30/2018 CKD HGB USE SMARTSET 47002 03/12/202403/12, 03/05/2023, 03/29/2022, Additional history exists Pneumococcal [...]
--- OUTSIDE RECORDS SUMMARY | 2023-06-01 12:58 | External Medical Summary | Summary of Care ---
Author Name Unknown Organization [facility] Address [address] [facility] [place] [address] Phone [phone] Care Team Providers Care Control Room Agent Name Role Phone Unavailable Primary Care Provider Unavailabl e Reason for Referral * Evaluate & Treat - Unlimited Visits (Within 10 days (routine)) - Pending Review Specialty Diagnoses / Procedures Referred By Julian loza Referred To Contact Pulmonary Diseases / Pulmonary Diagnoses Mass of upper lobe of right lung Nunu Reyes CRNP [address] [place] [address] Referral ID Status Reason Start Date Expiration Date Visits Requested Visits Authorized [id number] Pending Review Specialty Services Required [phone] Question Answer Referral Priority Within 10 Days (Routine) Primary Reason for Referral? Lung Nodule/Mass Reason for Visit * Reason Comments Hospital Follow-Up Fall, rehab follow u p - patient accompanied by daughter Teressa - she states patient has been doing alright Encounter Details Date Type Department Care Team (Late st Contact Info) Description 03/20/2023 2:40 PM EST Office Visit [facility] [address] [place] [address] Nunu Reyes CRNP [address] [place] [address] Hospital discharge follow-up*; Mass of upper lobe of right lung; Hx of bacterial pneumonia; Dementia without behavioral disturbance (HCC); B-cell lymphoma of intra-abdominal lymph nodes, unspecified B-cell lymphoma type (HCC); Prediabetes Allergies No known active allergiesdocumented as of this encounter (statuses as of 03/20/2023) Medications Medication Sig Dispensed Refills Start Date End Date Status Multiple Vitamins-Minerals (MULTIVITAMIN ADULT) TABS Take by mouth. 0 Active Nitroglycerin 0.4 MG Sublingual Tablet Sublingual (Nitrostat)Indication s:Coronary artery disease involving [place] coronary artery of [place] heart without angina pectoris DISSOLVE ONE TABLET [...] as of this encounter (statuses as of 03/20/2023) Active Problems Problem Noted Date Diagnosed Date [...] stent 01/16/2003 Blindness, one eye 01/16/2003 FM [id number] DIS NEC 01/11/2002 documented as of this encounter (statuses as of 03/20/2023) Resolved Problems Problem Noted Date Diagnosed Date [...] as of this encounter (statuses as of 03/20/2023) Immunizations Name Administration Dates Next Due Diptheria/Tetanus (Adult) 09/08/2001 Pneumococcal Conjugate Vacci ne, 20-valent ([id number]) 01/11/2022 Seasonal Influenza, QUAD, wi th Preserv, 6 mons & Above, 0.5 mL, IM 01/14/2020 Seasonal Influenza, Quadriva lent Hd (Fluzone Hd) 01/11/2022,02/26/2021 Seasonal Influenza, Split, I IV3, With Preserve, Inj 12/31/2012,12/19/2011,01/22/2011,2009,03/26/2009,04/24/2007 TDAP (age 10 and older)(Boostrix) 06/28/2012 documented as of this encounter Social History Tobacco Use Types Packs/Day Years Used Date Smoking Tobacco: Never Smokeless Tobacco: Never Tobacco Cessation:Counseling Given: Not Answered Alcohol Use Standard Drinks/Week Comments No 0 [...] Sign Reading Time Taken Comments Blood Pressure 124/80 03/20/2023 2:42 PM EST Pulse 60 03/20/2023 2:42 PM EST Temperature 37.2 C (98.9 F) 03/20/2023 2:42 PM ES T Respiratory Rate 18 03/20/2023 2:42 PM EST Oxygen Saturation - - Inhaled Oxygen Concentration - - Weight 71.5 kg (157 lb 11.2 oz) 03/20/2023 2:42 PM EST Height - - Body Mass Index 23.98 05/16/2022 12:33 PM EST documented in this encounter Progress Notes * Nunu Reyes CRNP - 03/20/2023 2:52 PM EST Images from the original note were not included. Follow up Family Medicine Visit History of Present Illness Fawad Brunner is a very pleasant 87 year old male with PMH of CAD, CVA, dementia, hx of B-cell lymphomas/p radiation, CKD stage 3, chronic hyponatremia, and others listed below presenting with dischargefollow up. 03/01/23-03/04/23 [facility] Fall and pneumonia, discharged to [facility] and now back to home. He has been doing well since discharge, working with PT/OT. Lung mass in RUL has slightly increased in size, highly suspicious for primary bronchogenic malignancy per report. Daughter wants to work up, requesting referral to pulmonary and sooner appt to hematology. Social History Socioeconomic History Marital status: Spouse name: Not on file Number of children: Not on file Years of education: Not on file Highest education level: Not on file Occupational History Not on file Tobacco Use Smoking status: Never Smokeless tobacco: Never Vaping Use Vaping Use: Never used Substance and Sexual Activity Alcohol use: No Drug use: No Sexual activity: Not Currently Partners: Female Other Topics Concern Not on file Social History Narrative ; retired from [employer]; 3 children Social Determinants of Health Financial Resource Strain: Not on file Food Insecurity: No Food Insecurity (01/11/2022) Hunger Vital Sign Worried About Running Out of Food in the Last Year: Never true Ran Out of Food in the Last Year: Never true Transportation Needs: Not on file Physical Activity: Not on file Stress: Not on file Social Connections: Not on file Intimate Partner Violence: Not on file Housing Stability: Not on file PMH: Past Medical History: Diagnosis Date ABDOMINAL AORTIC ANEURYSM- 2.7 cm 11/01/2009 ASCVD (arteriosclerotic cardiovascular disease) Dyslipidemia, goal to be determined HTN, goal below 140/90 S/P angioplasty with stent 1999 Past Surgical History: Procedure Laterality Date COLONOSCOPY, DIAGNOSTIC (RECTUM) 08/27/2013 normal bx, repeat per PCP/COLONOSCOPY FLEXIBLE PROXIMAL DIAGNOSTIC performed by Yusef Wilks MD at ENDOSCOPY [facility] EGD, FLEXIBLE, DIAGNOSTIC 04/15/2021 normal bx, sm hiatal hernia / ESOPHAGOGASTRODUODENOSCOPY (EGD), FLEXIBLE, TRANSORAL, DIAGNOSTIC performed by Beatrice Hurt MD at ENDOSCOPY [facility] INFORMATION Trauma OS requiring extensive repair-blindness IR BIOPSY 05/06/2021 Outpatient Medications Marked as Taking for the 03/20/23 encounter (Office Visit) with Nunu Reyes CRNP Medication Sig Famotidine 20 MG Oral Tablet (Pepcid) TAKE 1 TABLET BY MOUTH ONCE DAILY NEEDED FOR HEART BURN Pantoprazole Sodium 40 MG Oral Tablet Delayed Release (Protonix) TAKE 1 TABLET BY MOUTH IN THE MORNING Atorvastatin Calcium 80 MG Oral Tablet (Lipitor) Take 1 tablet by mouth once daily Metoprolol Succinate ER 25 MG Oral Tablet Extended Release 24 Hour (toPROL XL) Take 1/2 (one-half) tablet by mouth once daily Clopidogrel Bisulfate 75 MG Oral Tablet (pLAVix) Take 1 tablet by mouth once daily Sodium Chloride 1 GM Oral Tablet Take 1 Tablet by mouth in the morning. Nitroglycerin 0.4 MG Sublingual Tablet Sublingual (Nitrostat) DISSOLVE ONE TABLET UNDER THE TONGUE EVERY 5 MINUTES NEEDED FOR CHEST PAIN. DO NOT EXCEED A TOTAL OF 3 DOSES IN 15 MINUTES Multiple Vitamins-Minerals (MULTIVITAMIN ADULT) TABS Take by mouth. Review of patient's allergies indicates: No Known Allergies Most Recent Immunizations Administered Date(s) Administered Diptheria/Tetanus (Adult) 09/08/2001 Pneumococcal Conjugate Vaccine, 20-valent ([id number]) 01/11/2022 Pneumococcal Polysaccharide PPV23 (Pneumovax) 12/17/2004 Seasonal Influenza, QUAD, with Preserv, 6 mons & Above, 0.5 mL, IM 01/14/2020 Seasonal Influenza, Quadrivalent Hd (Fluzone Hd) 01/11/2022 Seasonal Influenza, Split, IIV3, With Preserve, Inj 12/31/2012 TDAP (age 10 and older)(Boostrix) 06/28/2012 Review of Systems: Physical Exam BP 124/80 (BP Site: Left Arm, BP Position: Sitting, BP Cuff Size: Regular) | Pulse 60 | Temp 37.2 C (98.9 F) (Tympanic) | Resp 18 | Wt 71.5 kg (157 lb 11.2 oz) | BMI 23.98 kg/m | BSA 1.85 m Physical Exam Constitutional: Appearance: Normal appearance. HENT: Head: Normocephalic. Cardiovascular: Rate and Rhythm: Normal rate and regular rhythm. Pulmonary: Effort: Pulmonary effort is normal. Breath sounds: Normal breath sounds. No wheezing. Abdominal: General: Bowel sounds are normal. Musculoskeletal: General: No swelling. Cervical back: Neck supple. Comments: Ambulate with a walker Skin: General: Skin is warm. Neurological: Mental Status: He is alert. Mental status is at baseline. Psychiatric: Mood and Affect: Mood normal. Assessment and Plan 1. Hospital discharge follow-up 2. Mass of upper lobe of right lung - STAIR LUNG NODULE REFERRAL OP (SYSTEM FOR TRACKING ABNORMALITIES OF IMPORTANCE RELIABLY) 3. Hx of bacterial pneumonia Resolved 4. Dementia without behavioral disturbance (HCC) 5. B-cell lymphoma of intra-abdominal lymph nodes, unspecified B-cell lymphoma type (HCC) F/u heme/onc Wrap-Up I have advised the patient to call our office with any worsening or new symptoms. I spent a total of 40-54 minutes (exact time 40 mins) on the date of service in preparation, delivery, and documentation of the care provided to Fawad Brunner excluding any time spent in the performance of separately billed services. Nunu Reyes, ANGELICA, RODOLFO [facility] [place] documented in this encounter Nursing Notes * Leonard Gracia RN - 03/20/2023 2:40 PM EST Chief Complaint Patient presents with Hospital Follow-Up Fall, rehab follow up - patient accompanied by daughter Teressa - she states patient has been doing alright documented in this encounter Plan of Treatment Upcoming Encounters Date Type Department Care Team (Late st Contact Info) Description 04/26/2023 10:00 AM EST Office Visit Cardiology, [facility] [address] [facility] [place] [address] Nica Benitez PA-C 132 [facility] [place] [address] 05/31/2023 3:15 PM EST Office Visit Hematology/Oncology [facility] [address] [facility] [place], [place] [address] Marcial Mayer MD [address] [facility] [place] [address] 06/19/2023 4:00 PM EDT Office Visit [facility] [address] [place] [address] Bonilla Magdaleno MD [address] [place] [address] Scheduled Referrals Name Type Priority Associated Diagnoses Order Schedule STAIR LUNG NODULE REFERRAL OP (SYSTEM FOR TRACKING ABNORMALITIES OF IMPORTANCE RELIABLY) Referral Within 10 days (routine) Mass of upper lobe of right lung Ordered: 03/20/2023 Health Maintenance Due Date Last Done Comments COVID-19 Vaccine (#1) 1941 Albumin/Creatinine Ratio 1954 Zoster Vaccines (1 of 2) 12/24/1955 DTaP,Tdap,and Td Vaccines (2 - Td or Tdap) 06/28/2022 06/28/2012, 09/08/2001 Influenza Vaccine (FLU shot) (#1) 2022 01/11/2022, 02/26/2021, 01/14/2020, Additional history exists Depression Screening 01/11/2023 01/11/2022 CKD PHOS USE SMARTSET 19188 03/29/202303/11, 02/17/2021, 10/09/2019, Additional history exists HbA1c 03/29/2023 03/29/2022, 01/08, 04/30/2018 CKD HGB USE SMARTSET 82033 03/12/202403/12, 03/05/2023, 03/29/2022, Additional history exists Pneumococcal [...] as of this encounter Visit Diagnoses Diagnosis Hospital discharge follow-up- Primary Other follow-up examination Mass of upper lobe of right lung Hx of bacterial pneumonia Personal history of pneumonia (recurrent) Dementia without behavioral disturbance (HCC) Dementia, unspecified, without behavioral disturbance B-cell lymphoma of intra-abdominal lymph nodes, unspecified B-cell lymphoma type (HCC) Prediabetes Other abnormal glucose documented in this encounter"
--- OUTSIDE RECORDS SUMMARY | 2023-06-01 12:58 | External Medical Summary ---
Author Name Unknown Address Unknown Organization [facility] [place] [address] [place] [address] Laboratory Report Ordering Provider Test Date Status HY,DEPAMPHILIS 03/05/2023 05:50:00 Final Observation Date Value Abnormality Reference (Units ) Status BUN 03/05/2023 05:50:00 11 6-20 (mg/dL) Final Creatinine 03/05/2023 05:50:00 1.3 Above high normal 0.6-1.2 (mg/dL) Final Glomerular filtration rate/1.73 sq M.predicted [Volume Rate/Area] in Serum, Plasma or Blood by Creatinine-based formula (CKD-EPI) 03/05/2023 05:50:00 53 Below low normal >=60 (mL/min) Final eGFR is calculated based on the CKD-EPI 2020 equation SODIUM 03/05/2023 05:50:00 136 135-146 (m mol/L) Final Potassium 03/05/2023 05:50:00 4.2 3.5-5.1 (m mol/L) Final Cl 03/05/2023 05:50:00 100 98-107 (mm ol/L) Final CO2 03/05/2023 05:50:00 24 22-32 (mmo l/L) Final Anion gap 03/05/2023 05:50:00 12 7-15 (mmol /L) Final Glucose 03/05/2023 05:50:00 106 70-120 (mg /dL) Final Calcium 03/05/2023 05:50:00 9.8 8.4-10.2 ( mg/dL) Final Performing Location [facility] [address] [place] [id number]
--- OUTSIDE RECORDS SUMMARY | 2023-06-01 12:58 | External Medical Summary | Summary of Care ---
Author Name Unknown Organization [facility] Address [address] [place] [address] Phone [phone] Care Team Providers Care Civil Engineering Intern Name Role Phone Unavailable Primary Care Provider Unavailabl e Reason for Visit * Reason Onset Date Comments STAIR Lung Nodule 03/20/2023 Encounter Details Date Type Department Care Team (Late st Contact Info) Description 03/20/2023 Telephone STAIR LUNG NODULE [address], [place] [id number] Program, Stair [address] [place] [address] STAIR Lung Nodule Allergies No known active allergiesdocumented as of this encounter (statuses as of 03/20/2023) Medications Medication Sig Dispensed Refills Start Date End Date Status Multiple Vitamins-Minerals (MULTIVITAMIN ADULT) TABS Take by mouth. 0 Active Nitroglycerin 0.4 MG Sublingual Tablet Sublingual (Nitrostat)Indication s:Coronary artery disease involving [place] coronary artery of [place] heart without angina pectoris DISSOLVE ONE TABLET [...] stent 01/16/2003 Blindness, one eye 01/16/2003 FM [id number] DIS NEC 01/11/2002 documented as of this [...] (Adult) 09/08/2001 Pneumococcal Conjugate Vacci ne, 20-valent ([id number]) 01/11/2022 Seasonal Influenza, QUAD, wi th Preserv, [...] 03/20/2023 3:11 PM EST Images requested from [address] [place] documented in this encounter Plan of Treatment Upcoming Encounters Date Type Department Care Team (Late st Contact Info) Description 04/26/2023 10:00 AM EST Office Visit Cardiology, [facility] [address] [place] [address] Nica Benitez PA-C [address] [place] [address] 05/31/2023 3:15 PM EST Office Visit Hematology/[facility] [address] [place] [address] Marcial Mayer MD [address] [place] [address] 06/19/2023 4:00 PM EDT Office Visit Family Practice [facility] [address] [place] [address] Bonilla Magdaleno MD [address] [place] [address] Health Maintenance Due Date Last Done Comments COVID-19 Vaccine (#1) 1941 Albumin/Creatinine Ratio 1954 Zoster Vaccines (1 of 2) 12/24/1955 DTaP,Tdap,and Td Vaccines (2 - Td or Tdap) 06/28/2022 06/28/2012, 09/08/2001 Influenza Vaccine (FLU shot) (#1) 2022 01/11/2022, 02/26/2021, 01/14/2020, Additional history exists Depression Screening 01/11/2023 01/11/2022 CKD PHOS USE SMARTSET 42369 03/29/202303/11, 02/17/2021, 10/09/2019, Additional history exists HbA1c 03/29/2023 03/29/2022, 01/08, 04/30/2018 CKD HGB USE SMARTSET 51343 03/12/202403/12, 03/05/2023, 03/29/2022, Additional history exists Pneumococcal [...]
--- OUTSIDE RECORDS SUMMARY | 2023-06-01 12:58 | External Medical Summary ---
Author Name Unknown Address Unknown Organization [facility] [place] [address] [place] [address] Laboratory Report Ordering Provider Test Date Status HY,DEPAMPHILIS 03/05/2023 05:50:00 Final Observation Date Value Abnormality Reference (Units ) Status WBC, Total 03/05/2023 05:50:00 8.25 4.00-10.8 0 (K/uL) Final RBC 03/05/2023 05:50:00 3.61 4.50-5.25 (M/uL) Final Hemoglobin 03/05/2023 05:50:00 10.9 Below low normal 14 .0-16.8 (g/dL) Final HCT 03/05/2023 05:50:00 31.6 Below low normal 40. 0-48.4 (%) Final MCV 03/05/2023 05:50:00 87.5 82.0-99.5 (fL) Final MCH 03/05/2023 05:50:00 30.2 27.0-34.0 (pg) Final MCHC 03/05/2023 05:50:00 34.5 32.0-36.0 (g/dL) Final RDW 03/05/2023 05:50:00 13.0 11.5-15.5 (%) Final Platelets 03/05/2023 05:50:00 310 140-400 (K /uL) Final MPV 03/05/2023 05:50:00 10.4 6.6-11.1 ( fL) Final [facility] [place] [address]
--- OUTSIDE RECORDS SUMMARY | 2023-06-01 12:58 | External Medical Summary | Summary of Care ---
Author Name Unknown Organization [facility] Address [address] [facility] [place] [address] Phone [phone] Care Team Providers Care Tagman Name Role Phone Unavailable Primary Care Provider Unavailabl e Encounter Details Date Type Department Care Team (Late st Contact Info) Description 03/09/2023 Orders Only Hematology/Oncology [facility] [place] [address] [facility] [place] [address] Marcial Mayer MD [address] [facility] [place] [address] Allergies No known active allergiesdocumented as of this encounter (statuses as of 03/09/2023) Medications Medication Sig Dispensed Refills Start Date End Date Status Multiple Vitamins-Minerals (MULTIVITAMIN ADULT) TABS Take by mouth. 0 Active Nitroglycerin 0.4 MG Sublingual Tablet Sublingual (Nitrostat)Indication s:Coronary artery disease involving [place] coronary artery of [...] as of this encounter (statuses as of 03/09/2023) Active Problems Problem Noted Date Diagnosed Date [...] stent 01/16/2003 Blindness, one eye 01/16/2003 FM [id number] DIS NEC 01/11/2002 documented as of this encounter (statuses as of 03/09/2023) Resolved Problems Problem Noted Date Diagnosed Date [...] as of this encounter (statuses as of 03/09/2023) Immunizations Name Administration Dates Next Due Diptheria/Tetanus (Adult) 09/08/2001 Pneumococcal Conjugate Vacci ne, 20-valent ([id number]) 01/11/2022 Seasonal Influenza, QUAD, wi th Preserv, [...] 04/26/2023 10:00 AM EST Office Visit Cardiology, [facility] [address] [place] [address] Nica Benitez PA-C [address] [place] [address] 05/31/2023 3:15 PM EST Office Visit Hematology/Oncology [facility] [address] [facility] [place] [address] Marcial Mayer MD [address] [place] [address] Health Maintenance Due Date Last Done Comments COVID-19 Vaccine (#1) 1941 Albumin/Creatinine Ratio 1954 Zoster Vaccines (1 of 2) 12/24/1955 DTaP,Tdap,and Td Vaccines (2 - Td or Tdap) 06/28/2022 06/28/2012, 09/08/2001 Influenza Vaccine (FLU shot) (#1) 2022 01/11/2022, 02/26/2021, 01/14/2020, Additional history exists Depression Screening 01/11/2023 01/11/2022 CKD PHOS USE SMARTSET 18557 03/29/2023 12, 02/17/2021, 10/09/2019, Additional history exists HbA1c 03/29/2023 03/29/2022, 01/08, 04/30/2018 CKD HGB USE SMARTSET 88488 03/05/202403/05, 03/29/2022, 03/29/2022, Additional history exists Pneumococcal [...] Procedure Name Priority Date/Time Associated Diagnosis Comments CT CHEST WO CONTRAST Routine 03/01/2023 documented in this encounter Results * CT CHEST WO CONTRAST (03/01/2023) Anatomical Region Laterality Modality Chest, Body, Cardio Other 03/01/2023 History Per Patient RAD CT documented in this encounter
--- OUTSIDE RECORDS SUMMARY | 2023-06-01 12:58 | External Medical Summary ---
Author Name Unknown Address Unknown Organization [facility] [address] [place] [address] Laboratory Report Ordering Provider Test Date Status HY,DEPAMPHILIS 03/12/2023 05:40:00 Final Observation Date Value Abnormality Reference (Units ) Status WBC, Total 03/12/2023 05:40:00 7.03 4.00-10.8 0 (K/uL) Final RBC 03/12/2023 05:40:00 3.40 4.50-5.25 (M/uL) Final Hemoglobin 03/12/2023 05:40:00 10.3 Below low normal 14 .0-16.8 (g/dL) Final HCT 03/12/2023 05:40:00 29.9 Below low normal 40. 0-48.4 (%) Final MCV 03/12/2023 05:40:00 87.9 82.0-99.5 (fL) Final MCH 03/12/2023 05:40:00 30.3 27.0-34.0 (pg) Final MCHC 03/12/2023 05:40:00 34.4 32.0-36.0 (g/dL) Final RDW 03/12/2023 05:40:00 13.4 11.5-15.5 (%) Final Platelets 03/12/2023 05:40:00 314 140-400 (K /uL) Final MPV 03/12/2023 05:40:00 10.4 6.6-11.1 ( fL) Final Performing Location [facility] [address] [place] [address]
--- NOTE | 2023-06-01 13:26 | Pharmacy Report ---
- Date of Service June 01, 2023 - Pharmacy CVA/TIA Medication Review Medications to Prevent Stroke handout has been added to the patients discharge packet. Antiplatelet(s) * clopidogrel 75mg PO daily * aspirin EC 81mg PO daily Cholesterol * High intensity statin: atorvastatin 80 mg daily DVT Prophylaxis * Enoxaparin SQ Therapeutic Anticoagulation * No history of Afib/Aflutter noted Type 2 Diabetes * Patient does not have T2DM (HbA1c 5.0% 05/31/23)
[2023-06-02 05:55] LABS: Basophils # (auto) 0.04 K/uL (0.00-0.20); Basophils % (auto) 0.4 %; Hematocrit (blood only) 32.1 % (42.0-52.0); Hemoglobin 11.2 g/dl (14.0-18.0); Immature Granulocytes # (auto) 0.04 K/uL (0.01-0.20); Immature Granulocytes % (auto) 0.4 %; Lymphocytes # (auto) 1.06 K/uL (1.20-3.40); Lymphocytes % (auto) 11.1 %; Mean Corpuscular Hemoglobin 29.7 pg (25.0-34.0); Mean Corpuscular Hgb Conc 34.9 g/dL (32.0-36.0); Mean Corpuscular Volume 85.1 fL (80.0-100.0); Mean Platelet Volume 10.3 fL (9.4-12.4); Monocytes # (auto) 1.23 K/uL (0.11-0.59); Monocytes % (auto) 12.9 %; Neutrophils # (auto) 7.07 K/uL (1.40-6.50); Neutrophils % (auto) 74.2 %; Platelet Count 251 K/uL (130-400); RDW Coefficient of Variation 13.6 % (11.5-14.5); RDW Standard Deviation 42.8 fL (36.4-46.3); Red Blood Count 3.77 M/uL (4.70-6.10); White Blood Count 9.54 K/ul (4.8-10.8)
[2023-06-02 06:14] LABS: Anion Gap 7 (3-11); BUN Creatinine Ratio 16.8 (10-20); Blood Urea Nitrogen 22 mg/dl (6-23); Calcium 9.4 mg/dl (8.6-10.3); Carbon Dioxide 25 mmol/L (21-32); Chloride 98 mmol/L (98-107); Creatinine Clr Calc Pharmacy 37.8 ml/min; Est GFR (African American) 56.7 ml/min; Glucose 97 mg/dl (70-99(Fasting)); Magnesium 1.9 mg/dl (1.7-2.4); Phosphorus 4.2 mg/dl (2.5-4.9); Sodium 130 mmol/L (136-145)
[2023-06-02] MEDS: FAMOTIDINE 20 MG TAB PO PRN (08:08)
--- NOTE | 2023-06-02 14:13 | Hospitalist Progress Note ---
Date of Service June 02, 2023 Assessment & Plan (1) Paresthesia: (2) Stroke-like symptoms: (3) Mediastinal adenopathy: (4) Carotid artery disease: (5) Chronic hyponatremia: (6) Hypertension: (7) Dyslipidemia: (8) Coronary artery disease: (9) Low grade B-cell lymphoma: (10) CKD (chronic kidney disease), stage III: Plan 87-year-old male with PMH of HTN, HLD, CAD status post PCI LAD in 2000, CKD stage III, CVA, chronic hyponatremia, B-cell lymphoma, thoracic aortic aneurysm, GERD, dementia presented to the ED with complaint of left hand numbness/weakness. He is being managed for the following: Transient LUE weakness/numbness Possible TIA History of CVA Patient presenting with transient LUE weakness/numbness Admitting CTA head and CT head with no acute finding Admitting CTA neck with 70% stenosis involving the proximal right ICA and innumerable upper thoracic lymph nodes. Admitting MRI brain with no acute finding. A1c 5.0 and LDL 62. Continue with DAPT for 21 days starting 05/31. Continue with home dose of statin. PT/OT, will need rehab c/w neurochecks, telemetry monitoring. Delirium precaution. More lethargic today, will get CT Head. Pulmonary mass: Admitting CXR with right perihilar mass and associated lymphadenopathy. Has been noted in previous admissions as well, has been evaluated by pulmonology and recommended bronchoscopy with biopsy. Family leaning towards clinical surveillance with no interventions then. Follow-up with pulmonology as an outpatient and oncology as OP as prior. Noted recent OP bronchoscopic biopsy findings of recurrent B cell lymphoma. Lyme disease: Tested positive on 05/31, started doxycycline 05/31. continue. Other chronic medical conditions: Continue with/resume home meds as and when able. History CAD sp stenting, history PVD Valvular heart disease (mild MR/TR/AR/, TTE 2022) HTN, c/t monitor, use prn meds if needed. Hyperlipidemia on statin Rx history non-Hodgkin's lymphoma status post radiation (patient refused chemotherapy in the past as per records), patient currently seeing [facility] oncologist given recent outpatient bronchoscopic biopsy findings of recurrent be ta cell lymphoma Chronic hyponatremia on sodium tablets chronic anemia, hemoglobin at baseline Prediabetes, hemoglobin A1c of 4.9 2021 Dementia, baseline confusion as per daughter. past tobacco abuse DVT prophylaxis. Lovenox DNR/DNI Patient daughter Ms. Teressa Chavira, contact #[phone]. updated pt's dtr 06/01. Admission and Anticipated Discharge Date Admission Date: May 31, 2023 Subjective Patient was seen and examined at bedside. Patient was sitting up in bed, on room air, working w/ PT/OT, not in any acute distress. Patient is lethargic and is hard of hearing. He denies any pain. strength b/l equal. no facial deviation noted. Per RN, has slept through the night, more lethargic today and w/ poor PO intake today. Physical Exam Physical Exam: GENERAL: lethargic, awake. NAD, on RA. Old/frail/weak appearing HEENT: No pallor, no icterus. Pupils equal, round and reactive to light. Oral mucosa moist. Left eye with scarring [chronic left eye blindness] NECK: No JVD, no neck masses. HEART: S1 and S2 heard. Regular rate and rhythm. + murmur, no gallop. RESPIRATORY SYSTEM: Normal AP diameter. No accessory muscle use. No wheezing, no crackles. ABDOMEN: Soft, bowel sounds present, nontender, no distention. CENTRAL NERVOUS SYSTEM: No facial droop. Obeys simple commands. Moves extremities. Power bilaterally symmetric EXTREMITIES: No edema, no erythema seen. Results & Data Results & Data Vital Signs (Past 12 Hours) Vital Signs Temp Pulse Pulse Resp BP Pulse Ox O2 Del Method 06/02/23 11:56 36.8 C 67 17 163/90 H 97 Room Air 06/02/23 08:00 Room Air 06/02/23 07:58 36.4 C L 51 L 18 154/82 H 96 Room Air 06/02/23 07:00 49 L
--- NOTE | 2023-06-02 16:08 | CT Scan Report ---
HEAD CT NONCONTRAST CT DOSE: 625.8 mGy.cm HISTORY: increased lethargy. TECHNIQUE: Multiaxial CT images of the head were performed without the use of intravenous contrast. A utomated exposure control was utilized for this study. A dose lowering technique was utilized adheri ng to the principles of ALARA. Comparison: Brain MRI 06/01/2023. Findings: The paranasal sinuses and mastoid air cells are clear. The calvarium and skull base are int act. There is no mass, hematoma, midline shift, acute infarct. White matter hypodensity is nonspecifi c but suggestive of microvascular ischemic change. The ventricles and sulci demonstrate mild age-rela ev involutional changes. Old small right cerebral infarcts again noted. Impression: No significant change compared to the prior study. No acute intracranial abnormality. ACT 112: Negative or not required by law. Electronically signed by: Gildardo Alves M.D. 06/02/2023 4:07 PM
[2023-06-02] MEDS: POLYETHYLENE (MIRALAX) 17 GM PACK PO PRN (17:33)
[2023-06-02] MEDS: DOXYCYCLINE HYCLATE 100 MG in DEXTROSE 5% MINI-B 100 ML IV SCH (20:23)
[2023-06-03 06:36] LABS: Basophils # (auto) 0.04 K/uL (0.00-0.20); Basophils % (auto) 0.4 %; Eosinophils # (auto) 0.23 K/uL (0.00-0.50); Eosinophils % (auto) 2.4 %; Hematocrit (blood only) 33.7 % (42.0-52.0); Hemoglobin 11.8 g/dl (14.0-18.0); Immature Granulocytes # (auto) 0.04 K/uL (0.01-0.20); Immature Granulocytes % (auto) 0.4 %; Lymphocytes # (auto) 0.83 K/uL (1.20-3.40); Lymphocytes % (auto) 8.8 %; Mean Corpuscular Volume 85.8 fL (80.0-100.0); Mean Platelet Volume 10.4 fL (9.4-12.4); Monocytes # (auto) 1.04 K/uL (0.11-0.59); Neutrophils # (auto) 7.28 K/uL (1.40-6.50); Platelet Count 243 K/uL (130-400); RDW Coefficient of Variation 13.6 % (11.5-14.5); RDW Standard Deviation 43.3 fL (36.4-46.3); Red Blood Count 3.93 M/uL (4.70-6.10); White Blood Count 9.46 K/ul (4.8-10.8)
[2023-06-03 06:53] LABS: BUN Creatinine Ratio 16.9 (10-20); Calcium 9.8 mg/dl (8.6-10.3); Est GFR (African American) 64.4 ml/min; Est GFR (Non-African American) 55.5 ml/min; Magnesium 1.8 mg/dl (1.7-2.4); Phosphorus 3.2 mg/dl (2.5-4.9); Potassium 4.2 mmol/L (3.5-5.1)
--- NOTE | 2023-06-03 12:16 | Discharge Summary ---
Date of Service June 03, 2023 Admission HPI Per Admitting Provider Patient is 87-year-old male with PMH HTN, dyslipidemia, CAD s/p PCI LAD in 2000, CKD III, history of CVA, chronic hyponatremia, B-cell lymphoma, thoracic aortic aneurysm, GERD, dementia, and others listed below presented to ER with complaint of left hand and weakness. Limited history obtained from patient secondary to cognitive status. History obtained from patient's daughter and outpatient inpatient chart review. Currently patient knows he is in medical facility and does not know his daughter (states that she is his ). Patient daughter states that this is his baseline mental status. She has not noticed significant worsening. Daughter states last night patient complained of left hand feeling numb and she noticed that it seemed more contracted and he was having difficulty using it. She states this lasted approximately an hour and then later patient was no longer complaining of numbness and seem to be using his hand without difficulty. She states late at night he was complaining of feeling dizzy. Daughter reports patient did not sleep last night and was more restless than usual. She tried giving him melatonin without improvement last night. States patient has progressively been having more sleep issues. She reports this morning patient walked down steps. He did not want to eat breakfast which was unusual for patient. Daughter reports patient seemed to be out of breath this morning when he was trying to put on his pants. She states then he was complaining that his legs felt weak and he felt like he had difficulty walking. Patient walks with walker at baseline. Denies any falls. Daughter states has noticed some progressive mumbling of words at times over the past months, does not feel that has had any worsening speech changes over the past several days. Denies any noted facial drooping. Has not noticed any vomiting or diarrhea, fever or chills, cough or other episodes of shortness of breath, rashes. Currently patient denying any complaint. He denies headache, chest pain, dizziness, vision changes, abdominal pain, paresthesias, urinary symptoms. Admission Exam Per Admitting Provider General: no acute distress, WDWN Head: normocephalic, atraumatic Eyes: +left eye with scarring (chronic left eye blindness), Right eye PERRL, EOM's appear intact, conjunctiva non-injected, anicteric ENT: normal inspection external ears, nose, mucous membranes moist Neck: supple, trachea midline Lungs: clear, no respiratory distress, no wheezing/rhonchi/rales CV: RRR, + murmur, no pretibial edema Abd: normal BS, soft, non-tender Ext: no cyanosis, no calf tenderness Neuro: Alert, oriented to place (knows medical facility), oriented to self only (calls his daughter is ), normal affect, facial sensation is intact and symmetric, face is strong and symmetric, hearing grossly intact, soft palate elevates symmetrically, +intermittent mumbling of words (daughter states this is baseline), shoulder shrug intact, tongue is midline, normal movement, no fasciculations. Strong and equal policy adviser strength bilaterally, strength 4/5 upper and lower extremities bilaterally Skin: warm, dry Principal Diagnosis Transient LUE weakness/numbness Possible TIA History of CVA Pulmonary mass, history of Lyme disease Discharge Exam GENERAL: alert, awake. NAD, on RA. Old/frail/weak appearing HEENT: No pallor, no icterus. Pupils equal, round and reactive to light. Oral mucosa moist. Left eye with scarring [chronic left eye blindness] NECK: No JVD, no neck masses. HEART: S1 and S2 heard. Regular rate and rhythm. + murmur, no gallop. RESPIRATORY SYSTEM: Normal AP diameter. No accessory muscle use. No wheezing, no crackles. ABDOMEN: Soft, bowel sounds present, nontender, no distention. CENTRAL NERVOUS SYSTEM: No facial droop. Obeys simple commands. Moves extremities. Power bilaterally symmetric EXTREMITIES: No edema, no erythema seen. Discharge Data Allergies Allergy/AdvReac Type Severity Reaction Status Date / Time No Known Allergies Allergy Unknown Verified 05/31/23 17:30 Consultations 05/31/23 20:35 ED Decision to Admit Stat Ordered Studies 05/31/23 14:34 CT head/brain wo con Stat 05/31/23 18:17 CT angio head w con Stat CT angio neck with con Stat 06/01/23 00:17 MR brain wo con Stat 06/02/23 14:12 CT head/brain wo con Routine Hospital Course (1) Paresthesia: (2) Stroke-like symptoms: (3) Mediastinal adenopathy: (4) Carotid artery disease: (5) Chronic hyponatremia: (6) Hypertension: (7) Dyslipidemia: (8) Coronary artery disease: (9) Low grade B-cell lymphoma: (10) CKD (chronic kidney disease), stage III: Plan 87-year-old male with PMH of HTN, HLD, CAD status post PCI LAD in 2000, CKD stage III, CVA, chronic hyponatremia, B-cell lymphoma, thoracic aortic aneurysm, GERD, dementia presented to the ED with complaint of left hand numbness/weakness. He was managed for the following: Transient LUE weakness/numbness Possible TIA History of CVA Patient presenting with transient LUE weakness/numbness Admitting CTA head and CT head with no acute finding Admitting CTA neck with 70% stenosis involving the proximal right ICA and innumerable upper thoracic lymph nodes. Admitting MRI brain with no acute finding. A1c 5.0 and LDL 62. Continue with DAPT for 21 days starting 05/31. then c/w aspirin only from nd day onwards. Continue with home dose of statin. PT/OT, will need rehab c/w neurochecks, telemetry monitoring. Delirium precaution. Now alert and awake. close to his baseline Pulmonary mass: Admitting CXR with right perihilar mass and associated lymphadenopathy. Has been noted in previous admissions as well, has been evaluated by pulmonology and recommended bronchoscopy with biopsy. Family leaning towards clinical surveillance with no interventions then. Follow-up with pulmonology as an outpatient and oncology as OP as prior. Noted recent OP bronchoscopic biopsy findings of recurrent B cell lymphoma. Lyme disease: Tested positive on 05/31, started doxycycline 05/31. continue for 14 days total. Other chronic medical conditions: Continue with/resume home meds as and when able. History CAD sp stenting, history PVD Valvular heart disease (mild MR/TR/AR/, TTE 2022) HTN, c/t monitor, use prn meds if needed. Hyperlipidemia on statin Rx history non-Hodgkin's lymphoma status post radiation (patient refused chemotherapy in the past as per records), [place] [facility] [place] given recent outpatient bronchoscopic biopsy findings of recurrent beta cell lymphoma Chronic hyponatremia on sodium tablets chronic anemia, hemoglobin at baseline Prediabetes, hemoglobin A1c of 4.9 2021 Dementia, baseline confusion as per daughter. past tobacco abuse DVT prophylaxis. Lovenox DNR/DNI Patient daughter Ms. Teressa Chavira, contact #[phone]. updated pt's dtr 06/01. Called 06/03 for update, left voicemail to call us back. [facility] with following instruction at the point of discharge Follow-up with your primary care physician within a week time and likely you will need labs CBC/CMP/magnesium/phosphorus. For possible TIA, you have been started on aspirin on top of your home Plavix. Continue both for 21 days starting 05/31/2023. Then drop your Plavix and continue with aspirin only from 22nd days onwards. Recommend Zio patch monitoring upon discharge, coordinate with your PCP office to set up the test. Blood pressure on the higher side while in hospital, initiating small dose of amlodipine at discharge. Continue long-term management with PCP office. For your lung mass, continue to follow your pulmonology and oncology as prior. For concern of Lyme disease, you are started on doxycycline 05/31, continue for 14 days from 05/31. Take your other home medications as prior. Please make sure that you are able to get your medications today by calling your pharmacy before you leave the hospital so that your treatment continuity is not broken. Home Health Attestation I certify that this patient is under my care and that I, or a physicians assistant production manager working with me, had a face to-face encounter that meets the home health [id number] encounter requirements with this patient. The encounter with the patient was in whole, or in part, for the following medical condition, which is the primary reason for home health care (list medical condition): I certify that, based on my findings, the following services are medically necessary home health services: My clinical findings support the need for the above services because: Further, I certify that my clinical findings support that this patient is homebound (i.e. absences from home require considerable and taxing effort and are for medical reasons or oriental orthodox services or infrequently or of short duration when for other reasons) because: Certification for Home Health Services: Based on the above findings, I certify that this patient is confined to the home and needs intermittent senior care care, physical therapy and/or speech therapy or continues to need occupational therapy. The patient is under my care, and I have initiated the establishment of the plan of care. This patient will be followed by a physician who will periodically review the plan of care. Total Time Total Time Spent Total Time Spent (In Minutes): 45 Discharge Plan Discharge Items Patient Disposition: Transfer Inpatient Rehab Fac Reason For Visit: TIA Discharge Diagnosis: Transient LUE weakness/numbness Possible TIA History of CVA Pulmonary mass, history of Lyme disease Activity: As commented below Activity Comment: Continue with PT/OT. Non-emergency contact: Primary Care Provider Call non-emergency contact if: you have any medication questions, your symptoms worsen and your temperature is above 101.5 Follow-up/Referrals: PCP,NO [Primary Care Provider] - Diet: Heart Healthy Addtl Attending Provider Instructions: Follow-up with your primary care physician within a week time and likely you will need labs CBC/CMP/magnesium/phosphorus. For possible TIA, you have been started on aspirin on top of your home Plavix. Continue both for 21 days starting 05/31/2023. Then drop your Plavix and continue with aspirin only from 22nd days onwards. Recommend Zio patch monitoring upon discharge, coordinate with your PCP office to set up the test. Blood pressure on the higher side while in hospital, initiating small dose of amlodipine at discharge. Continue long-term management with PCP office. For your lung mass, continue to follow your pulmonology and oncology as prior. For concern of Lyme disease, you are started on doxycycline 05/31, continue for 14 days from 05/31. Take your other home medications as prior. Please make sure that you are able to get your medications today by calling your pharmacy before you leave the hospital so that your treatment continuity is not broken. Pending Studies at Discharge: No Stand-Alone Forms: My [facility], Medications to Prevent Stroke Skilled Items Patient informed of condition?: Yes DNR: Yes Discharge Level of Care: Acute rehab Communicable Disease: No Discharge Prognosis: Stable Lines: None Urinary Catheter: No Medications and DC Order Prescriptions: New aspirin 81 mg Tablet,Delayed Release (Dr/Ec) 81 mg PO QAM Qty: 30 0RF doxycycline hyclate 100 mg tablet 100 mg PO BID 12 Days Qty: 24 0RF amlodipine 2.5 mg tablet 2.5 mg PO DAILY Qty: 30 0RF Continued nitroglycerin [Nitrostat] 0.4 mg Tablet, Sublingual 0.4 mg Sublingual DIRECTED PRN (Reason: Chest Pain) multivitamin Tablet 1 tab PO DAILY Qty: 30 0RF atorvastatin 80 mg Tablet 80 mg PO QAM Qty: 30 0RF pantoprazole 40 mg tablet,delayed release (DR/EC) 40 mg PO DAILY Qty: 30 0RF metoprolol succinate [Toprol XL] 25 mg Tablet Extended Release 24 Hr 12.5 mg PO DAILY Qty: 30 0RF famotidine 20 mg tablet 20 mg PO DAILY PRN (Reason: Heartburn) sodium chloride 1,000 mg Tablet,Soluble 1,000 mg PO DAILY clopidogrel 75 mg tablet 75 mg PO DAILY 17 Days Qty: 17 0RF Discharge Orders: Discharge Order (Routine); Ordered 06/03/23 Ordered By: Kathya Cardona Admission Data Admit Date/Time: 06/02/23 14:05 Attending Provider: Kathya Cardona Admit Provider: Hitesh London Primary Care Provider: PCP,NO Other Providers: Hitesh London; [facility]; [facility]
== END 2023-06-03 15:39 | DRG 69 ==
LOC: 2N 14:05 → ED 14:05 → 2N 06-01 09:36

== ENCOUNTER 2023-07-02 18:02 | Inpatient (IN) ==
--- OUTSIDE RECORDS SUMMARY | 2023-07-02 18:07 | External Medical Summary ---
Author Name Unknown Address Unknown Organization [id number]:[facility] [address] [place] [id number] Laboratory Report Ordering Provider Test Date Status HY,DEPAMPHILIS 06/11/2023 05:20:00 Final Observation Date Value Abnormality Reference (Units ) Status BUN 06/11/2023 05:20:00 28 Above high normal 6-20 (mg/dL) Final Creatinine 06/11/2023 05:20:00 1.2 0.6-1.2 (mg/dL) Final Glomerular filtration rate/1.73 sq M.predicted [Volume Rate/Area] in Serum, Plasma or Blood by Creatinine-based formula (CKD-EPI) 06/11/2023 05:20:00 58 Below low normal >=60 (mL/min) Final eGFR is calculated based on the CKD-EPI 2020 equation SODIUM 06/11/2023 05:20:00 133 Below low normal 135 -146 (mmol/L) Final Potassium 06/11/2023 05:20:00 4.5 3.5-5.1 (m mol/L) Final Cl 06/11/2023 05:20:00 95 Below low normal 98- 107 (mmol/L) Final CO2 06/11/2023 05:20:00 25 22-32 (mmo l/L) Final Anion gap 06/11/2023 05:20:00 13 7-15 (mmol /L) Final Glucose 06/11/2023 05:20:00 92 70-120 (mg /dL) Final Calcium 06/11/2023 05:20:00 10.3 Above high normal 8. 4-10.2 (mg/dL) Final Performing Location [facility] [address] [place] [id number]
--- OUTSIDE RECORDS SUMMARY | 2023-07-02 18:07 | External Medical Summary ---
Author Name Unknown Address Unknown Organization [id number]:[facility] [place] [address] Laboratory Report Ordering Provider Test Date Status GREG MASSEY 06/15/2023 06:32:30 Final Observation Date Value Abnormality Reference (Units ) Status Calcium 06/15/2023 06:32:30 9.6 8.4-10.2 ( mg/dL) Final Performing Location [facility] [place] [address]
--- OUTSIDE RECORDS SUMMARY | 2023-07-02 18:07 | External Medical Summary | Summary of Care ---
Author Name Unknown Organization [facility] Address [address] [facility] [place] [address] Phone [phone] Care Team Providers Care Ingredient Mixer Name Role Phone Bonilla Magdaleno MD Primary Care Provider [phone] Reason for Visit * Reason Onset Date Comments Med Request 06/27/2023 Encounter Details Date Type Department Care Team (Late st Contact Info) Description 06/27/2023 Telephone Family Practice [facility] [address] [place] [address] Bonilla Magdaleno MD [address] [place] [address] Med Request Allergies No known active allergiesdocumented as of this encounter (statuses as of 06/28/2023) Medications Medication Sig Dispensed Refills Start Date [...] Tablet Sublingual (Nitrostat)Indica tions: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 90 Tablet 0 05/17/2023 Active amLODIPine Besylate 2.5 MG Oral Tablet (Norvasc) Take 1 Tablet by mouth in the morning. 90 Tablet 0 06/28/2023 Active amLODIPine Besylate 2.5 MG Oral Tablet (Norvasc) Take 1 Tablet by mouth in the morning. 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 07/10/2014 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 09/18/2013 Thoracic aortic aneurysm 12/07/2010 AAA (abdominal aortic aneurysm) 11/01/2009 S/P angioplasty with stent 01/16/2003 Blindness, one eye 01/16/2003 documented as of this encounter (statuses as of 06/28/2023) Resolved Problems Problem Noted Date Diagnosed Date Resolved Date Lung consolidation 01/12/2022 4 Mass of upper lobe of right lung 01/11/2022 06/19/2023 Pneumonia of right upper lob e due to infectious organism 01/11/2022 06/19/2023 Hyponatremia 01/11/2022 06/19/2023 COVID-19 virus infection 01/11/202202/2024 Dementia without behavioral disturbance 09/05/2020 06/19/2023 Benign hypertension with sta ge 3a chronic kidney disease 08/18/2020 06/19/2023 Overview: Per CKD protocol Elevated TSH 03/27/2019 06/19/2023 Memory loss 03/27/2019 06/19/2023 Cholelithiasis 06/18/2018 06/19/2023 Kidney disease, chronic, sta ge III (GFR 30-59 ml/min) 07/18/2017 04/27/2018 Overview: Per CKD protocol #1 Encounter for antineoplastic chemotherapy 10/14/2013 06/19/2023 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 ADVANCE DIRECTIVE INFORMATION 11/30/2004 06/19/2023 Overview: No, Advance Directive brochure given to patient. 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 documented as of this encounter (statuses as of 06/28/2023) Immunizations Name Administration Dates Next Due Diptheria/Tetanus (Adult) 09/08/2001 Pneumococcal Conjugate Vacci ne, 20-valent ([id number]) 01/11/2022 Seasonal Influenza, QUAD, wi th Preserv, [...] Miscellaneous Notes * Telephone Encounter - Page Delaney LPN - 06/28/2023 4:10 PM EDT Pt EC aware. Just had appt with Sharla on 06/19/23, which WAS AFTER pt was in rehab. Just needed refill to continue the amlodipine since rehab only gave him 30 day supply. * Telephone Encounter - Bonilla Magdaleno MD - 06/28/2023 2:29 PM EDT Yes. I haven't seen him since he was in the rehab facility to go over new meds though, so that would need to be scheduled in person as would any patient who is coming out of rehab. That is how we know what meds were added/why/etc. * Telephone Encounter - Corie Neri PHARM Tech - 06/27/2023 10:09 AM EDT Pt's ec stated he was getting this when he was in the rehab facility and would like to know if he is to continue it , please advise Pt's ec calling requesting the following medication below that is listed as "Historical". The following information was provided: Medication Name: amLODIPine Besylate Strength: 2.5 mg Directions: take 1 tab by mouth in the am Preferred Quantity: 90 Previous Prescriber: n/a Preferred Pharmacy: [facility] [address] [place] [address] Please review and approve if appropriate. Thank you, Corie Neri CPhT [facility] ([facility]) 06/27/2023,10:09 AM documented in this encounter Plan of Treatment Upcoming Encounters Date Type Department Care Team (Late st Contact Info) Description 07/17/2023 12:00 PM EDT Office Visit Hematology/Oncology [facility] [place] [address] [place] [address] Yenni Cho CRNP [address] [facility] [place] [id number] 08/24/2023 11:30 AM EDT Imaging Vascular Lab, [facility] 2nd Floor, [place] [address] [facility] [address] 08/30/2023 1:30 PM EDT Office Visit Vascular Surgery, [facility] [address] [facility] [place] [address] Des Rice MD [address] [place] [address] 09/22/2023 1:20 PM EDT Office Visit Family Practice [facility] [address] [facility] [place] [address] Bonilla Magdaleno MD [address] [facility] [place] [address] 10/25/2023 11:00 AM EDT Cardiac Studies Cardiac Studies, [facility] [address] [facility] [place] [address] Health Maintenance Due Date Last Done Comments COVID-19 Vaccine (#1) 1940 Zoster Vaccines (1 of 2) [birth year]24/1954 DTaP,Tdap,and Td Vaccines (2 - Td or Tdap) 06/28/2022 06/28/2012, 09/08/2001 Influenza Vaccine (FLU shot) (#1) 2022 01/11/2022, 02/26/2021, 01/14/2020, Additional history exists Depression Screening 01/11/2023 01/11/2022 HbA1c 03/29/2023 03/29/2022, 01/08, 04/30/2018 Albumin/Creatinine Ratio 05/09/2024 05/09/2023 CKD HGB USE SMARTSET 25543 06/10/202406/10, 06/04/2023, 05/09/2023, Additional history exists CKD PHOS USE SMARTSET 44028 06/14/2024 03/0 10/2023, 03/29/2022, 02/17/2021, Additional history exists Pneumococcal Vaccine: 65+ Years [...] Not on filedocumented as of this encounter Care Teams Ingredient Mixer Relationship Specialty Start Date End Date Bonilla Magdaleno MD [address] [place] [address] PCP - General Family Medicine 06/19/23 documented as of this encounter
--- OUTSIDE RECORDS SUMMARY | 2023-07-02 18:07 | External Medical Summary ---
Author Name Unknown Address Unknown Organization K0G:[facility] [address] [place] [address] Laboratory Report Ordering Provider Test Date Status HY,DEPAMPHILIS 06/04/2023 05:59:00 Final Observation Date Value Abnormality Reference (Units ) Status BUN 06/04/2023 05:59:00 26 Above high normal 6-20 (mg/dL) Final Creatinine 06/04/2023 05:59:00 1.3 Above high normal 0.6-1.2 (mg/dL) Final Glomerular filtration rate/1.73 sq M.predicted [Volume Rate/Area] in Serum, Plasma or Blood by Creatinine-based formula (CKD-EPI) 06/04/2023 05:59:00 55 Below low normal >=60 (mL/min) Final eGFR is calculated based on the CKD-EPI 2020 equation SODIUM 06/04/2023 05:59:00 133 Below low normal 135 -146 (mmol/L) Final Potassium 06/04/2023 05:59:00 4.1 3.5-5.1 (m mol/L) Final Cl 06/04/2023 05:59:00 96 Below low normal 98- 107 (mmol/L) Final CO2 06/04/2023 05:59:00 22 22-32 (mmo l/L) Final Anion gap 06/04/2023 05:59:00 15 7-15 (mmol /L) Final Glucose 06/04/2023 05:59:00 103 70-120 (mg /dL) Final Calcium 06/04/2023 05:59:00 10.1 8.4-10.2 ( mg/dL) Final Performing Location [facility] [address] [place] [address]
--- OUTSIDE RECORDS SUMMARY | 2023-07-02 18:07 | External Medical Summary ---
Author Name Unknown Address Unknown Organization K09:[facility] [place] [address] Laboratory Report Ordering Provider Test Date Status GREG MASSEY 06/15/2023 06:32:30 Final Observation Date Value Abnormality Reference (Units ) Status Phosphate 06/15/2023 06:32:30 4.2 2.5-4.8 (m g/dL) Final Performing Location [facility] [place] [address]
--- OUTSIDE RECORDS SUMMARY | 2023-07-02 18:07 | External Medical Summary ---
Author Name Unknown Address Unknown Organization K09:[facility] [place] [address] Laboratory Report Ordering Provider Test Date Status GREG MASSEY 06/15/2023 06:32:30 Final Observation Date Value Abnormality Reference (Units ) Status Albumin 06/15/2023 06:32:30 3.9 3.8-5.0 (g /dL) Final Performing Location [facility] [place] [address]
--- OUTSIDE RECORDS SUMMARY | 2023-07-02 18:07 | External Medical Summary | Summary of Care ---
Author Name Unknown Organization [facility] Address [address] [facility] [place] [address] Phone [phone] Care Team Providers Care Mechanical Systems Engineer Name Role Phone Bonilla Magdaleno MD Primary Care Provider [phone] Reason for Visit * Reason Comments Follow Up Pt here for 3 mo fol low up. Pt here with daughter, Teressa. Daughter questions that when pt d/c from [facility] on 06/15/23 they wanted him to d/c plavix and start on Asprin 81 mg daily and also to add amlodipine. Teressa states she did not want to change pt's meds till after discussing with Dr. Magdaleno today. Encounter Details Date Type Department Care Team (Late st Contact Info) Description 06/19/2023 4:00 PM EDT Office Visit Family Practice [facility] [address] [facility] [place] [address] Bonilla Magdaleno MD [address] [facility] [place] [address] B-cell lymphoma of intra-abdominal lymph nodes, unspecified B-cell lymphoma type (HCC)*; Vascular dementia without behavioral disturbance (HCC); Chronic kidney disease, stage 3a (HCC); S/P angioplasty with stent; Prediabetes; Carotid atherosclerosis, bilateral Allergies No known active allergiesdocumented as of this encounter (statuses as of 06/20/2023) Medications Medication Sig Dispensed Refills Start Date [...] Tablet Sublingual (Nitrostat)Indicati ons:Coronary artery disease involving [place] coronary artery of [place] heart without angina pectoris DISSOLVE ONE TABLET UNDER THE TONGUE EVERY 5 MINUTES NEEDED FOR CHEST PAIN. DO NOT EXCEED A TOTAL OF 3 DOSES IN 15 MINUTES 25 Tablet 3 04/26/2023 Active Additional Information Patient not taking.Reported on 06/19/2023 Famotidine 20 MG Oral Tablet (Pepcid)Indications :Gastroesophageal reflux disease without esophagitis TAKE 1 TABLET BY MOUTH ONCE DAILY NEEDED FOR HEART 30 Tablet 2 05/15/2023 Active Clopidogrel Bisulfate 75 MG Oral Tablet (pLAVix)Indications :S/P angioplasty with stent,Coronary artery disease involving [place] coronary artery of [place] heart without angina pectoris Take 1 Tablet by mouth in the morning. 90 Tablet 0 05/17/2023 Active amLODIPine Besylate 2.5 MG Oral Tablet (Norvasc) Take 1 Tablet by mouth in the morning. 0 Active documented as of this encounter (statuses as of 06/20/2023) Active Problems Problem Noted Date Diagnosed Date Nonrheumatic aortic valve stenosis 04/26/2023 HTN, goal below 150/90 04/26/2023 Vascular dementia without behavioral disturbance 01/11/2022 Aortic ectasia 01/11/2022 Prediabetes 02/15/2021 Overview: Per Prediabetes protocol Chronic kidney disease, stage 3a 09/22/2020 Overview: Per CKD protocol Cerebrovascular disease, arteriosclerotic, post- stroke 03/27/2019 Carotid atherosclerosis, bilateral 03/27/2019 Coronary artery disease invo lving [place] coronary artery of [place] heart without angina pectoris 07/10/2014 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 documented as of this encounter (statuses as of 06/20/2023) Immunizations Name Administration Dates Next Due Diptheria/Tetanus (Adult) 09/08/2001 Pneumococcal Conjugate Vacci ne, 20-valent ([id number]) 01/11/2022 Seasonal Influenza, QUAD, wi th Preserv, [...] Sign Reading Time Taken Comments Blood Pressure 102/54 06/19/2023 3:46 PM EDT Pulse 61 06/19/2023 3:46 PM EDT Temperature 37 C (98.6 F) 06/19/2023 3:46 PM EDT Respiratory Rate 16 06/19/2023 3:46 PM EDT Oxygen Saturation 96% 06/19/2023 3:46 PM EDT Inhaled Oxygen Concentration - - Weight 68.7 kg (151 lb 6 oz) 06/19/2023 3:46 PM EDT Height - - Body Mass Index 23.02 05/16/2022 12:33 PM EST documented in this encounter Progress Notes * Bonilla Magdaleno MD - 06/20/2023 12:32 AM EDT SUBJECTIVE: Fawad Brunner is a 87 year old male. Chief Complaint Patient presents with Follow Up Pt here for 3 mo follow up. Pt here with daughter, Teressa. Daughter questions that when pt d/c from [facility] on 06/15/23 they wanted him to d/c plavix and start on Asprin 81 mg daily and also to add amlodipine. Teressa states she did not want to change pt's meds till after discussing with Dr. Magdaleno today. HPI: Here with daughter. Daughter would like me to be PCP for patient. He has active b cell lymphoma andfollows with heme/onc. Medications reviewed/updated today. Patient has no complaints. Patient Active Problem List Diagnosis Code S/P angioplasty with stent Z95.820 Blindness, one eye H54.40 AAA (abdominal aortic aneurysm) ([facility]) I71.40 Thoracic aortic aneurysm (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) C85.93 Coronary artery disease involving [place] coronary artery of [place] shoshone heart without angina pectoris I25.10 Cerebrovascular disease, arteriosclerotic, post-stroke I67.2, Z86.73 Carotid atherosclerosis, bilateral I65.23 Chronic kidney disease, stage 3a ([facility]) N18.31 Prediabetes R73.03 Vascular dementia without behavioral disturbance ([facility]) F01.50 Aortic ectasia ([facility]) I77.819 Nonrheumatic aortic valve stenosis I35.0 HTN, goal below 150/90 I10 Current Outpatient Medications Medication Sig Dispense Refill Multiple Vitamins-Minerals (MULTIVITAMIN ADULT) TABS Take by mouth. Sodium Chloride 1 GM Oral Tablet Take 1 Tablet by mouth in the morning. Atorvastatin Calcium 80 MG Oral Tablet (Lipitor) Take 1 tablet by mouth once daily 90 Tablet 2 Pantoprazole Sodium 40 MG Oral Tablet Delayed Release (Protonix) TAKE 1 TABLET BY MOUTH IN THE MORNING 30 Tablet 2 Metoprolol Succinate ER 25 MG Oral Tablet Extended Release 24 Hour (toPROL XL) Take 1/2 (one-half) tablet by mouth once daily 45 Tablet 0 Famotidine 20 MG Oral Tablet (Pepcid) TAKE 1 TABLET BY MOUTH ONCE DAILY NEEDED FOR HEART 30 Tablet 2 Clopidogrel Bisulfate 75 MG Oral Tablet (pLAVix) Take 1 Tablet by mouth in the morning. 90 Tablet 0 Nitroglycerin 0.4 MG Sublingual Tablet Sublingual (Nitrostat) DISSOLVE ONE TABLET UNDER THE TONGUE EVERY 5 MINUTES NEEDED FOR CHEST PAIN. DO NOT EXCEED A TOTAL OF 3 DOSES IN 15 MINUTES (Patient not taking: Reported on 06/19/2023) 25 Tablet 3 amLODIPine Besylate 2.5 MG Oral Tablet (Norvasc) Take 1 Tablet by mouth in the morning. (Patient not taking: Reported on 06/19/2023) No current facility-administered medications for this visit. Allergy: Review of patient's allergies indicates: No Known Allergies OBJECTIVE: BP 102/54 | Pulse 61 | Temp 37 C (98.6 F) | Resp 16 | Wt 68.7 kg (151 lb 6 oz) | SpO2 96% | BMI23.02 kg/m | BSA 1.82 m General: alert, healthy, and no distress Head: Normocephalic, No masses, lesions, tenderness or abnormalities Neck: supple, no adenopathy, no bruits, thyroid normal size, non-tender, without nodularity Lungs: chest symmetric with normal AP diameter, no chest deformities noted, no chest wall tenderness, lungs clear to auscultation Heart: regular rate & rhythm, no murmur, and no gallops Extremities: less than 2 second capillary refill, no joint deformities, effusion, or inflammation Skin: skin color, texture, turgor are normal, no rashes or significant lesions ASSESSMENT AND PLAN: (C85.13) B-cell lymphoma of intra-abdominal lymph nodes, unspecified B-cell lymphoma type (HCC) (primary encounter diagnosis) Plan: follows with heme/onc (F01.50) Vascular dementia without behavioral disturbance (HCC) Plan: stable (N18.31) Chronic kidney disease, stage 3a (HCC) Plan: stable (Z95.820) S/P angioplasty with stent Plan: continue rx (R73.03) Prediabetes Plan: monitor a1c (I65.23) Carotid atherosclerosis, bilateral Plan: has upcoming vascular appt Follow up in 3 month(s). No other complaints were offered at this time. Bonilla Magdaleno MD documented in this encounter Nursing Notes * Nichelle Admas LPN - 06/19/2023 3:54 PM EDT The patient has been properly identified by confirmation of name and date of . Chief Complaint Patient presents with Follow Up Pt here for 3 mo follow up. Pt here with daughter, Teressa. Daughter questions that when pt d/c from [facility] on 06/15/23 they wanted him to d/c plavix and start on Asprin 81 mg daily and also to add amlodipine. Teressa states she did not want to change pt's meds till after discussing with Dr. Magdaleno today. documented in this encounter Plan of Treatment Upcoming Encounters Date Type Department Care Team (Late st Contact Info) Description 07/17/2023 12:00 PM EDT Office Visit Hematology/Oncology [facility] [address] [facility] [address] [place] [address] Yenni Cho CRNP [address] [facility] [place] [address] 08/24/2023 11:30 AM EDT Imaging Vascular Lab, [facility] 2nd [facility] [address] [place] [address] 08/30/2023 1:30 PM EDT Office Visit Vascular Surgery, [facility] [address] [facility] [place] [address] Des Rice MD [address] [place] [address] 09/22/2023 1:20 PM EDT Office Visit [facility] [address] Bonilla Magdaleno MD [address] [place] [address] 10/25/2023 11:00 AM EDT Cardiac Studies [facility] [address] Health Maintenance Due Date Last Done Comments COVID-19 Vaccine (#1) 1940 Zoster Vaccines (1 of 2) 12/24/1954 DTaP,Tdap,and Td Vaccines (2 - Td or Tdap) 06/28/2022 06/28/2012, 09/08/2001 Influenza Vaccine (FLU shot) (#1) 2022 01/11/2022, 02/26/2021, 01/14/2020, Additional history exists Depression Screening 01/11/2023 01/11/2022 HbA1c 03/29/2023 03/29/2022, 01/08, 04/30/2018 Albumin/Creatinine Ratio 05/09/2024 05/09/2023 CKD HGB USE SMARTSET 97312 06/10/202406/10, 06/04/2023, 05/09/2023, Additional history exists CKD PHOS USE SMARTSET 95877 06/14/2024 03/0 10/2023, 03/29/2022, 02/17/2021, Additional history [...] as of this encounter Visit Diagnoses Diagnosis B-cell lymphoma of intra-abdominal lymph nodes, unspecified B-cell lymphoma type (HCC)- Primary Vascular dementia without behavioral disturbance (HCC) Vascular dementia, uncomplicated Chronic kidney disease, stage 3a (HCC) S/P angioplasty with stent Postsurgical percutaneous transluminal coronary angioplasty status Prediabetes Other abnormal glucose Carotid atherosclerosis, bilateral documented in this encounter Care Teams Mechanical Systems Engineer Relationship Specialty Start Date End Date Bonilla Magdaleno MD [address] [place] [address] PCP - General Family Medicine 06/19/23 documented as of this encounter"
--- OUTSIDE RECORDS SUMMARY | 2023-07-02 18:07 | External Medical Summary | Summary of Care ---
Author Name Unknown Organization [facility] Address [address] [place] [address] Phone [phone] Care Team Providers Care Cheese Pancake Roller Name Role Phone Unavailable Primary Care Provider Unavailabl e Reason for Visit * Reason Onset Date Comments Appointment 06/09/2023 recall Encounter Details Date Type Department Care Team (Late st Contact Info) Description 06/09/2023 Telephone Vascular Surg [facility] [address] [place] [address] Dse Rice MD [address] [place] [address] Appointment (recall) Allergies No known active allergiesdocumented as of this encounter (statuses as of 06/09/2023) Medications Medication Sig Dispensed Refills Start Date [...] Tablet Sublingual (Nitrostat)Indicati ons:Coronary artery disease involving [place] coronary artery of [place] heart without angina pectoris DISSOLVE ONE TABLET [...] :S/P angioplasty with stent,Coronary artery disease involving [place] coronary artery of [place] heart without angina pectoris Take 1 Tablet by mouth in the morning. 90 Tablet 0 05/17/2023 Active documented as of this encounter (statuses as of 06/09/2023) Active Problems Problem Noted Date Diagnosed Date [...] stent 01/16/2003 Blindness, one eye 01/16/2003 FM [id number] DIS NEC 01/11/2002 documented as of this encounter (statuses as of 06/09/2023) Resolved Problems Problem Noted Date Diagnosed Date [...] as of this encounter (statuses as of 06/09/2023) Immunizations Name Administration Dates Next Due Diptheria/Tetanus (Adult) 09/08/2001 Pneumococcal Conjugate Vacci ne, 20-valent ([id number]) 01/11/2022 Seasonal Influenza, QUAD, wi th Preserv, [...] Telephone Encounter - Amber Campo OSA - 06/09/2023 12:40 PM EST Follow up in [place] with Dwayne and Carotid duplex in two years. Carotid duplex to be completed one week prior to the appt Called and left message for patient to schedule his 2 year follow [facility] documented in this encounter Plan of Treatment Upcoming Encounters Date Type Department Care Team (Late st Contact Info) Description 06/19/2023 4:00 PM EDT Office Visit Family Practice [facility] [address] [place] [address] Bonilla Magdaleno MD [address] [place] [address] 07/04/2023 8:45 AM EDT [facility] [place] [address] [place] [phone] Marcial Mayer MD [address] [place] [address] 08/24/2023 11:30 AM EDT Imaging Vascular Lab, [facility] 2nd Floor, [place] [address] [facility] [place] [address] 08/30/2023 1:30 PM EDT Office Visit Vascular Surgery, [facility] [address] [facility] [place] [address] Des Rice MD [address] [facility] [place] [address] 10/25/2023 11:00 AM EDT Cardiac Studies Cardiac Studies, [facility] [address] [facility] [place] [address] Health Maintenance Due Date Last Done Comments COVID-19 Vaccine (#1) 1940 Zoster Vaccines (1 of 2) 12[birth year]24/1954 DTaP,Tdap,and Td Vaccines (2 - Td or Tdap) 06/28/2022 06/28/2012, 09/08/2001 Influenza Vaccine (FLU shot) (#1) 2022 01/11/2022, 02/26/2021, 01/14/2020, Additional history exists Depression Screening 01/11/2023 01/11/2022 CKD PHOS USE SMARTSET 37595 03/29/202303/11, 02/17/2021, 10/09/2019, Additional history exists HbA1c 03/29/2023 03/29/2022, 01/08, 04/30/2018 Albumin/Creatinine Ratio 05/09/2024 05/09/2023 CKD HGB USE SMARTSET 02850 06/04/202406/04, 05/09/2023, 05/09/2023, Additional history exists Pneumococcal Vaccine: 65+ Years [...]
--- OUTSIDE RECORDS SUMMARY | 2023-07-02 18:07 | External Medical Summary ---
Author Name Unknown Address Unknown Organization [id number][facility] [address] [place] [address] Laboratory Report Ordering Provider Test Date Status HY,DEPAMPHILIS 06/11/2023 05:20:00 Final Observation Date Value Abnormality Reference (Units ) Status WBC, Total 06/11/2023 05:20:00 8.94 4.00-10.8 0 (K/uL) Final RBC 06/11/2023 05:20:00 3.89 4.50-5.25 (M/uL) Final Hemoglobin 06/11/2023 05:20:00 11.9 Below low normal 14 .0-16.8 (g/dL) Final HCT 06/11/2023 05:20:00 33.5 Below low normal 40. 0-48.4 (%) Final MCV 06/11/2023 05:20:00 86.1 82.0-99.5 (fL) Final MCH 06/11/2023 05:20:00 30.6 27.0-34.0 (pg) Final MCHC 06/11/2023 05:20:00 35.5 32.0-36.0 (g/dL) Final RDW 06/11/2023 05:20:00 14.0 11.5-15.5 (%) Final Platelets 06/11/2023 05:20:00 336 140-400 (K /uL) Final MPV 06/11/2023 05:20:00 10.6 6.6-11.1 ( fL) Final Performing Location [facility]ORY [facility] [place] [address] [place] [address]
--- OUTSIDE RECORDS SUMMARY | 2023-07-02 18:07 | External Medical Summary ---
Author Name Unknown Address Unknown Organization [id number] [address] [facility] [address] [place] [address] Laboratory Report Ordering Provider Test Date Status HY,DEPAMPHILIS 06/04/2023 05:59:00 Final Observation Date Value Abnormality Reference (Units ) Status WBC, Total 06/04/2023 05:59:00 11.79 Above high normal 4 .00-10.80 (K/uL) Final RBC 06/04/2023 05:59:00 4.08 4.50-5.25 (M/uL) Final Hemoglobin 06/04/2023 05:59:00 12.4 Below low normal 14 .0-16.8 (g/dL) Final HCT 06/04/2023 05:59:00 35.1 Below low normal 40. 0-48.4 (%) Final MCV 06/04/2023 05:59:00 86.0 82.0-99.5 (fL) Final MCH 06/04/2023 05:59:00 30.4 27.0-34.0 (pg) Final MCHC 06/04/2023 05:59:00 35.3 32.0-36.0 (g/dL) Final RDW 06/04/2023 05:59:00 13.8 11.5-15.5 (%) Final Platelets 06/04/2023 05:59:00 296 140-400 (K /uL) Final MPV 06/04/2023 05:59:00 10.5 6.6-11.1 ( fL) Final Performing Location LABORATORY [facility] [place] [address] [place] [address]
--- OUTSIDE RECORDS SUMMARY | 2023-07-02 18:07 | External Medical Summary | Summary of Care ---
Author Name Unknown Organization [facility] Address [address] [place] [address] Phone [phone] Care Team Providers Care Center Hole Reamer Name Role Phone Unavailable Primary Care Provider Unavailabl e Reason for Visit * Reason Onset Date Comments Appointment 06/09/2023 recall Encounter Details Date Type Department Care Team (Late st Contact Info) Description 06/09/2023 Telephone Vascular Surg [facility] [address] [place] [address] Des Rice MD [address] [place] [address] Appointment (recall) Allergies No known active allergiesdocumented as of this encounter (statuses as of 06/12/2023) Medications Medication Sig Dispensed Refills Start Date [...] Tablet Sublingual (Nitrostat)Indicati ons:Coronary artery disease involving [place] coronary artery of [place] heart without angina pectoris DISSOLVE ONE TABLET [...] :S/P angioplasty with stent,Coronary artery disease involving [place] coronary artery of [place] heart without angina pectoris Take 1 Tablet by mouth in the morning. 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 Carotid duplex to be completed one week prior to the appt Called and left message for patient to schedule his 2 year follow up [facility] documented in this encounter Plan of Treatment Upcoming Encounters Date Type Department Care Team (Late st Contact Info) Description 06/19/2023 4:00 PM EDT Office Visit Family Practice [facility] [address] [place] [address] Bonilla Magdaleno MD [address] [place] [address] 07/04/2023 8:45 AM EDT Office Visit Hematology/Oncology [facility] [address] [place] [phone] Marcial Mayer MD [address] [facility] [place] [address] 08/24/2023 11:30 AM EDT [facility] [address] [place] [address] 08/30/2023 1:30 PM EDT Office Visit Vascular Surgery, [facility] [address] [place] [address] Des Rice MD [address] [place] [address] 10/25/2023 11:00 AM EDT Cardiac Studies Cardiac Studies, [facility] [address] [place] [address] Health Maintenance Due Date Last Done Comments COVID-19 Vaccine (#1) 1940 Zoster Vaccines (1 of 2) 12/24/1954 DTaP,Tdap,and Td Vaccines (2 - Td or Tdap) 06/28/2022 06/28/2012, 09/08/2001 Influenza Vaccine (FLU shot) (#1) 2022 01/11/2022, 02/26/2021, 01/14/2020, Additional history exists Depression Screening 01/11/2023 01/11/2022 CKD PHOS USE SMARTSET 96855 03/29/2023 12, 02/17/2021, 10/09/2019, Additional history exists HbA1c 03/29/2023 03/29/2022, 01/08, 04/30/2018 Albumin/Creatinine Ratio 05/09/2024 05/09/2023 CKD HGB USE SMARTSET 33494 06/10/202406/10, 06/04/2023, 05/09/2023, Additional history exists Pneumococcal Vaccine: 65+ [...]
--- NOTE | 2023-07-02 18:23 | Emergency Department Note ---
Impression & Plan Generalized weakness, Dementia, Adult failure to thrive ED Provider Note NAME: CRYSTAL BRUNNER AGE: 87 SEX: M : 1935 ARRIVES VIA: Walk-In INFORMANT: Patient ED PROVIDER(S): Darrell Hawthorne MD CHIEF COMPLAINT: Weakness. PLAN: Disposition: Admit MEDICAL DECISION MAKING: This note the patient is a pleasant 87-year-old gentleman with past medical history dementia, CKD, chronic hyponatremia, GERD, thoracic aortic aneurysm, cerebral ischemia, hypertension, hyperlipidemia who presents to the emergency department via walk-in accompanied by his daughter for evaluation of worsening generalized weakness in the setting of recent admission to the facility where he was treated for Lyme disease and subsequent discharged to [facility] but has been home for the past several weeks. She reports he is getting home PT and OT and has been working with them for the past week but yesterday and today have been more fatigued wanting to sleep most of the day. She notes he was wanting to help break the leaves yesterday and fell onto his buttocks. However even before then he was not wanting to walk for her which concerns her. She feels she cannot manage him at home at this time. Otherwise denies any new cough, congestion, nausea, vomiting or diarrhea. She reports his oral intake is poor both with eating and hydrating. On evaluation the patient is no acute distress, afebrile with stable vital signs. He appears clinically dry. He is pleasantly confused. He is moving all extremities equally with generalized weakness. EKG without overt acute ischemia. Chest x-ray negative for acute cardiopulmonary process with right perihilar density previously identified. WBC and platelets within normal limits. H/H 9.8/20.2 decreased from May however within prior range of values. Chemistry without metabolic acidosis. Electrolytes LFTs are unremarkable. LFTs positive troponin 7.8, within normal limits. Lipase not elevated. TSH within normal limits. UA without evidence of infection. CT of the head, lumbar spine and abdomen pelvis were completed with reports pending. Given the patient's daughter reports concern of her ability to care for the patient due to his weakness and poor oral intake patient was for to hospital service for admission for further management and likely PT/OT and placement. Case was discussed with Dr. London, [facility] hospitalist who will evaluate the patient for admission. CT head negative for acute findings and demonstrates chronic right frontal infarct. CT of the lumbar spine negative for acute traumatic findings. CT abdomen pelvis with question of small 3 cm retroperitoneal hematoma versus abnormal lymph node. Further management per admitting team. Triage Nursing notes reviewed and agree them. Prior/external medical records reviewed Vital Signs: reviewed Differential diagnosis: Infection, dehydration, metabolic abnormality, hypo/hyperglycemia, electrolyte disturbance, anemia, hypoxia, cardiac sources, intracerebral event, toxicologic, neurologic, as well as other pathologies. ER treatment provided: See below. Diagnostics interpreted by me: ECG: Sinus rhythm with first-degree AV block, 72 bpm, PACs, no overt ST elevation or depression, QTc 411, QRS 100. Cardiac Monitoring: An order for continuous cardiac monitoring was placed and demonstrated Sinus rhythm with first-degree AV block, 72 bpm, PACs. Laboratory studies: See below Imaging studies: See below Consultation(s): [facility]. HPI: This note the patient is a pleasant 87-year-old gentleman with past medical history dementia, CKD, chronic hyponatremia, GERD, thoracic aortic aneurysm, cerebral ischemia, hypertension, hyperlipidemia who presents to the emergency department via walk-in accompanied by his daughter for evaluation of worsening generalized weakness in the setting of recent admission to the facility where he was treated for Lyme disease and subsequent discharged to [facility] but has been home for the past several weeks. She reports he is getting home PT and OT and has been working with them for the past week but yesterday and today have been more fatigued wanting to sleep most of the day. She notes he was wanting to help break the leaves yesterday and fell onto his buttocks. However even before then he was not wanting to walk for her which concerns her. She feels she cannot manage him at home at this time. Otherwise denies any new cough, congestion, nausea, vomiting or diarrhea. She reports his oral intake is poor both with eating and hydrating. ROS: See above HPI for pertinent positives & negatives. A total of 10 systems reviewed and were otherwise negative. VITALS:See Below PHYSICAL EXAMINATION: GENERAL: Awake, alert, fatigued-appearing, in no distress HENT: Normocephalic, atraumatic. Oropharynx with dry mucous membranes and otherwise unremarkable. EYES: Normal conjunctiva. Sclera non-icteric. Chronic left eye blindness. NECK: Supple. No nuchal rigidity. FROM. No JVD. RESPIRATORY: Clear to auscultation. CARDIAC: Regular rate, normal rhythm. Extremities warm and well perfused. Pulses equal. ABDOMEN: Soft, non-distended. No tenderness to palpation. No rebound or guarding. No masses. RECTAL: Deferred. MUSCULOSKELETAL: Chest examination reveals no tenderness. The back is symmetrical on inspection without obvious abnormality. There is no CVA tenderness to palpation. No joint edema. LOWER EXTREMITIES: Calves are equal size bilaterally and non-tender. No edema. No discoloration. NEURO: Pleasantly confused. At the patient's baseline for dementia. Moving all extremities with generalized weakness. No focal neurologic deficits. SKIN: No rash or jaundice noted. Darrell Hawthorne MD Past Med/Surg History Medical History CKD (chronic kidney disease), stage III Chronic hyponatremia History of COVID-19 Cerebrovascular disease TIA RUE weakness 02/23/20 GERD (gastroesophageal reflux disease) Do not resuscitate status Per pt's advance directives. 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 Brunner Status post coronary artery stent placement Family History Mother Heart disease Father Myocardial infarction Sister Cancer ? 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 Beliefs That Will Affect Care: None marital status: / Current Living Situation: Family Current Living Situation Comment: Help from daughter current occupational status: retired How many Children do You have: 2 Other Information That Helps Us Care for You: No Feels Safe at Home: Yes Safety Concerns: Feels Safe At This Time Assistive Devices: Walker Allergies Allergies Allergy/AdvReac Type Severity Reaction Status Date / Time No Known Allergies Allergy Unknown Verified 07/02/23 19:08 Home Meds Home Medications Medication Instructions Recorded Confirmed nitroglycerin 0.4 mg sublingual 0.4 mg sublingual DIRECTED PRN 06/09/18 07/02/23 tablet (Nitrostat) Chest Pain famotidine 20 mg tablet 20 mg PO DAILY PRN Heartburn 03/01/23 07/02/23 sodium chloride 1,000 mg soluble 1,000 mg PO QAM 03/01/23 07/02/23 tablet amlodipine 2.5 mg tablet 2.5 mg PO QAM 07/02/23 07/02/23 metoprolol succinate 25 mg 12.5 mg PO QAM 07/02/23 07/02/23 tablet,extended release 24 hr (Toprol XL) multivitamin 1 tab PO QAM 07/02/23 07/02/23 pantoprazole 40 mg tablet,delayed 40 mg PO QAM 07/02/23 07/02/23 release Previous Rx's Medication Instructions Recorded atorvastatin 80 mg tablet 80 mg PO QAM #30 tabs 02/07/21 aspirin 81 mg tablet,delayed 81 mg PO QAM #30 tabs 06/03/23 release Results & Data (ED) Vital Signs Vital Signs - 24 hr 07/02/23 18:10 07/02/23 18:21 07/02/23 18:30 Temperature 36.9 C Temperature Source Temporal Artery Scan Pulse Rate 74 79 70 Pulse Rate [Left Finger] Pulse Rate from SpO2 Sensor 75 74 Pulse Rhythm Regular Pulse Strength Normal Respiratory Rate 19 21 15 Respiratory Effort / Characteristics Respiratory Depth Normal Respiratory Pattern Blood Pressure Blood Pressure [Right Arm] Blood Pressure Mean Blood Pressure Mean [Right Arm] Blood Pressure Position [Right Arm] Pulse Oximetry 98 Oxygen Delivery Method Room Air Oxygen Flow Rate Sepsis Recent Fever Within 48 Hours No Sepsis New/Unexplained Change in Mental Status No Sepsis Action Taken by Nursing No Action Required 07/02/23 18:30 07/02/23 18:38 07/02/23 18:40 Temperature Temperature Source Pulse Rate 69 72 Pulse Rate [Left Finger] Pulse Rate from SpO2 Sensor 72 Pulse Rhythm Pulse Strength Respiratory Rate 20 Respiratory Effort / Characteristics Respiratory Depth Respiratory Pattern Blood Pressure 141/92 H Blood Pressure [Right Arm] Blood Pressure Mean 100 Blood Pressure Mean [Right Arm] Blood Pressure Position [Right Arm] Pulse Oximetry 96 Oxygen Delivery Method Oxygen Flow Rate Sepsis Recent Fever Within 48 Hours Sepsis New/Unexplained Change in Mental Status Sepsis Action Taken by Nursing 07/02/23 18:41 07/02/23 18:41 07/02/23 18:41 Temperature Temperature Source Pulse Rate 74 Pulse Rate [Left Finger] 92 H Pulse Rate from SpO2 Sensor Pulse Rhythm Irregular Pulse Strength Respiratory Rate 19 19 Respiratory Effort / Characteristics Non-Labored Spontaneous Respiratory Depth Normal Respiratory Pattern Regular Blood Pressure Blood Pressure [Right Arm] 141/92 H Blood Pressure Mean Blood Pressure Mean [Right Arm] 108 Blood Pressure Position [Right Arm] Semi-fowlers Pulse Oximetry 94 92 Oxygen Delivery Method Room Air Room Air Room Air Oxygen Flow Rate Sepsis Recent Fever Within 48 Hours Sepsis New/Unexplained Change in Mental Status Sepsis Action Taken by Nursing 07/02/23 18:50 07/02/23 19:00 07/02/23 19:02 Temperature Temperature Source Pulse Rate 70 74 Pulse Rate [Left Finger] Pulse Rate from SpO2 Sensor 72 73 73 Pulse Rhythm Pulse Strength Respiratory Rate 24 Respiratory Effort / Characteristics Respiratory Depth Respiratory Pattern Blood Pressure Blood Pressure [Right Arm] Blood Pressure Mean Blood Pressure Mean [Right Arm] Blood Pressure Position [Right Arm] Pulse Oximetry 95 94 Oxygen Delivery Method Oxygen Flow Rate Sepsis Recent Fever Within 48 Hours Sepsis New/Unexplained Change in Mental Status Sepsis Action Taken by Nursing 07/02/23 19:02 07/02/23 19:10 07/02/23 19:20 Temperature Temperature Source Pulse Rate 71 66 Pulse Rate [Left Finger] Pulse Rate from SpO2 Sensor 72 67 Pulse Rhythm Pulse Strength Respiratory Rate 21 20 Respiratory Effort / Characteristics Respiratory Depth Respiratory Pattern Blood Pressure 129/73 Blood Pressure [Right Arm] Blood Pressure Mean 93 Blood Pressure Mean [Right Arm] Blood Pressure Position [Right Arm] Pulse Oximetry 93 93 Oxygen Delivery Method Oxygen Flow Rate Sepsis Recent Fever Within 48 Hours Sepsis New/Unexplained Change in Mental Status Sepsis Action Taken by Nursing 07/02/23 19:30 07/02/23 19:30 07/02/23 19:40 Temperature Temperature Source Pulse Rate 66 69 Pulse Rate [Left Finger] Pulse Rate from SpO2 Sensor 66 69 Pulse Rhythm Pulse Strength Respiratory Rate 20 21 Respiratory Effort / Characteristics Respiratory Depth Respiratory Pattern Blood Pressure 149/78 H Blood Pressure [Right Arm] Blood Pressure Mean 110 Blood Pressure Mean [Right Arm] Blood Pressure Position [Right Arm] Pulse Oximetry 96 93 Oxygen Delivery Method Oxygen Flow Rate Sepsis Recent Fever Within 48 Hours Sepsis New/Unexplained Change in Mental Status Sepsis Action Taken by Nursing 07/02/23 20:00 07/02/23 20:03 07/02/23 20:30 Temperature Temperature Source Pulse Rate Pulse Rate [Left Finger] 61 Pulse Rate from SpO2 Sensor 67 69 Pulse Rhythm Pulse Strength Respiratory Rate 16 Respiratory Effort / Characteristics Non-Labored Respiratory Depth Normal Respiratory Pattern Blood Pressure 160/93 H 156/89 H Blood Pressure [Right Arm] Blood Pressure Mean 115 111 Blood Pressure Mean [Right Arm] Blood Pressure Position [Right Arm] Pulse Oximetry 96 94 89 L Oxygen Delivery Method Nasal Cannula Oxygen Flow Rate 2 Sepsis Recent Fever Within 48 Hours Sepsis New/Unexplained Change in Mental Status Sepsis Action Taken by Nursing 07/02/23 21:08 07/02/23 21:30 07/02/23 22:00 Temperature Temperature Source Pulse Rate 64 68 Pulse Rate [Left Finger] Pulse Rate from SpO2 Sensor 64 68 Pulse Rhythm Pulse Strength Respiratory Rate 25 H 23 Respiratory Effort / Characteristics Non-Labored Respiratory Depth Normal Respiratory Pattern Blood Pressure Blood Pressure [Right Arm] Blood Pressure Mean Blood Pressure Mean [Right Arm] Blood Pressure Position [Right Arm] Pulse Oximetry 98 99 Oxygen Delivery Method Oxygen Flow Rate Sepsis Recent Fever Within 48 Hours Sepsis New/Unexplained Change in Mental Status Sepsis Action Taken by Nursing 07/02/23 22:00 07/02/23 22:30 07/02/23 22:44 Temperature Temperature Source Pulse Rate 73 63 67 Pulse Rate [Left Finger] Pulse Rate from SpO2 Sensor 70 63 Pulse Rhythm Pulse Strength Respiratory Rate 20 23 Respiratory Effort / Characteristics Respiratory Depth Respiratory Pattern Blood Pressure Blood Pressure [Right Arm] Blood Pressure Mean Blood Pressure Mean [Right Arm] Blood Pressure Position [Right Arm] Pulse Oximetry 96 97 Oxygen Delivery Method Oxygen Flow Rate Sepsis Recent Fever Within 48 Hours Sepsis New/Unexplained Change in Mental Status Sepsis Action Taken by Nursing Laboratory Data Attestation: I reviewed the patient's lab results. 07/02/23 22:42 07/02/23 23:44 Lab Results 07/02/23 07/02/23 07/02/23 Range/Units 18:25 18:31 22:15 WBC 9.69 (4.8-10.8) K/ul RBC 3.32 L (4.70-6.10) M/uL Hgb 9.8 L (14.0-18.0) g/dl Hct 28.2 L (42.0-52.0) % MCV 84.9 (80.0-100.0) fL MCH 29.5 (25.0-34.0) pg MCHC 34.8 (32.0-36.0) g/dL RDW Std Deviation 44.6 (36.4-46.3) fL RDW Coeff of Roderick 14.4 (11.5-14.5) % Plt Count 380 (130-400) K/uL MPV 9.5 (9.4-12.4) fL Immature Gran % (Auto) 0.6 % Neut % (Auto) 78.4 % Lymph % (Auto) 6.3 % [place] % (Auto) 12.3 % Eos % (Auto) 1.9 % Baso % (Auto) 0.5 % Neut # (Auto) 7.60 H (1.40-6.50) K/uL Lymph # (Auto) 0.61 L (1.20-3.40) K/uL [place] # (Auto) 1.19 H (0.11-0.59) K/uL Eos # (Auto) 0.18 (0.00-0.50) K/uL Baso # (Auto) 0.05 (0.00-0.20) K/uL Immature Gran # (Auto) 0.06 (0.01-0.20) K/uL Sodium 132 L (136-145) mmol/L Potassium 4.5 (3.5-5.1) mmol/L Chloride 100 (98-107) mmol/L Carbon Dioxide 25 (21-32) mmol/L Anion Gap 7 (3-11) BUN 23 (6-23) mg/dl Creatinine 1.21 (0.6-1.4) mg/dl Est Cr Clr Drug Dosing 41.0 ml/min Est GFR ( Amer) 62.5 ml/min Est GFR (Non-Af Amer) 53.9 ml/min BUN/Creatinine Ratio 19.0 (10-20) Glucose 108 H (70-99(Fasting)) mg/dl Osmolality 282 (280-300) mOsm/kg Calcium 9.1 (8.6-10.3) mg/dl Phosphorus 3.2 (2.5-4.9) mg/dl Magnesium 2.0 (1.7-2.4) mg/dl Total Bilirubin 1.3 H (0.2-1.0) mg/dl AST 29 (13-39) U/L ALT 35 (7-52) U/L Alkaline Phosphatase 94 (34-104) U/L Troponin I High Sens 7.8 (0-20) pg/ml Total Protein 6.6 (6.0-8.3) gm/dl Albumin 3.7 (3.4-5.0) gm/dl Globulin 2.9 (2.5-4.0) gm/dl Albumin/Globulin Ratio 1.3 (0.9-2) Lipase 18 (11-82) U/L TSH 4.365 (0.300-4.500) uIu/ml Urine Color Dark Yellow Urine Appearance Clear (Clear) Urine pH 7.0 (4.5-7.5) Ur Specific [place] 1.021 (1.000-1.030) Urine Protein Trace H (Negative) Urine Glucose (UA) Negative (Negative) Urine Ketones Trace H (Negative) Urine Blood Negative (Negative) Urine Nitrite Negative (Negative) Urine Bilirubin Negative (Negative) Urine Urobilinogen Negative (Negative) Ur Leukocyte Esterase Negative (Negative) Urine WBC (Auto) 1-5 (0-5) /hpf Urine RBC (Auto) 0-4 (0-4) /hpf U Hyaline Cast (Auto) 0 (0-5) /lpf U Epithel Cells (Auto) 10-20 H (0-5) /lpf Urine Bacteria (Auto) Negative (Negative) Blood Type Antibody Screen 07/02/23 Range/Units 22:42 WBC (4.8-10.8) K/ul RBC (4.70-6.10) M/uL Hgb 9.4 L (14.0-18.0) g/dl Hct 27.2 L (42.0-52.0) % MCV (80.0-100.0) fL MCH (25.0-34.0) pg MCHC (32.0-36.0) g/dL RDW Std Deviation (36.4-46.3) fL RDW Coeff of Roderick (11.5-14.5) % Plt Count (130-400) K/uL MPV (9.4-12.4) fL Immature Gran % (Auto) % Neut % (Auto) % Lymph % (Auto) % [place] % (Auto) % Eos % (Auto) % Baso % (Auto) % Neut # (Auto) (1.40-6.50) K/uL Lymph # (Auto) (1.20-3.40) K/uL [place] # (Auto) (0.11-0.59) K/uL Eos # (Auto) (0.00-0.50) K/uL Baso # (Auto) (0.00-0.20) K/uL Immature Gran # (Auto) (0.01-0.20) K/uL Sodium (136-145) mmol/L Potassium (3.5-5.1) mmol/L Chloride (98-107) mmol/L Carbon Dioxide (21-32) mmol/L Anion Gap (3-11) BUN (6-23) mg/dl Creatinine (0.6-1.4) mg/dl Est Cr Clr Drug Dosing ml/min Est GFR ( Amer) ml/min Est GFR (Non-Af Amer) ml/min BUN/Creatinine Ratio (10-20) Glucose (70-99(Fasting)) mg/dl Osmolality (280-300) mOsm/kg Calcium (8.6-10.3) mg/dl Phosphorus (2.5-4.9) mg/dl Magnesium (1.7-2.4) mg/dl Total Bilirubin (0.2-1.0) mg/dl AST (13-39) U/L ALT (7-52) U/L Alkaline Phosphatase (34-104) U/L Troponin I High Sens (0-20) pg/ml Total Protein (6.0-8.3) gm/dl Albumin (3.4-5.0) gm/dl Globulin (2.5-4.0) gm/dl Albumin/Globulin Ratio (0.9-2) Lipase (11-82) U/L TSH (0.300-4.500) uIu/ml Urine Color Urine Appearance (Clear) Urine pH (4.5-7.5) Ur Specific [place] (1.000-1.030) Urine Protein (Negative) Urine Glucose (UA) (Negative) Urine Ketones (Negative) Urine Blood (Negative) Urine Nitrite (Negative) Urine Bilirubin (Negative) Urine Urobilinogen (Negative) Ur Leukocyte Esterase (Negative) Urine WBC (Auto) (0-5) /hpf Urine RBC (Auto) (0-4) /hpf U Hyaline Cast (Auto) (0-5) /lpf U Epithel Cells (Auto) (0-5) /lpf Urine Bacteria (Auto) (Negative) Blood Type A Negative Antibody Screen NEGATIVE Administered Medications Discontinued Medications Sodium Chloride (Nss) 1,000 mls @ 999 mls/hr IV .Q1H1M ONE Stop: 07/02/23 19:22 Last Infusion: 07/02/23 21:02 Dose: Infused Documented By: Admin: 07/02/23 18:50 Dose: 999 mls/hr Documented By: LMM Ioversol (Optiray 320 100ml) 92 ml IV ONCE ONE Stop: 07/02/23 21:02 Last Admin: 07/02/23 21:01 Dose: 92 ml Documented By: EDK Imaging Data Radiologist's Impression: Chest X-Ray 07/02/23 18:20 XR chest 1V portable CLINICAL HISTORY: weakness TECHNIQUE: Single frontal radiograph of the chest was obtained. Comparison: Comparison is made to chest radiograph 05/31/2023 FINDINGS: No lines and tubes are seen. Cardiomegaly is noted. The aortic arch is calcified. Previous seen noted right pulmonary density is again seen. No evidence of pleural effusion or pneumothorax. IMPRESSION: No acute abnormality. Right perihilar pulmonary density is seen. ACT 112: Negative or not required by law. Electronically signed by: Alejo Mix M.D. 07/02/2023 6:[address] 07/02/23 20:35 Exam(s): CT HEAD Without Contrast EXAM: CT Head Without Intravenous Contrast CLINICAL HISTORY: Reason for exam: weakness, fall, dementia. TECHNIQUE: Axial computed tomography images of the head/brain without intravenous contrast. CTDI is 45 mGy and DLP is 1879 mGy-cm. Automated exposure control was utilized for the study. A dose lowering technique was utilized adhering to the principles of ALARA. COMPARISON: No relevant prior studies available. FINDINGS: Brain: No intracranial hemorrhage, mass-effect, or cerebral edema. Basal ganglia calcifications. Chronic right frontal infarct. Atrophy and chronic microvascular ischemic changes. Ventricles: Unremarkable. Bones/joints: Unremarkable. No fracture. Soft tissues: Unremarkable. Sinuses: No acute sinusitis. Mastoid air cells: Unremarkable as visualized. IMPRESSION: 1. No acute intracranial abnormality. 2. Atrophy, chronic right frontal infarct, and chronic white matter changes. Electronically signed by: Casey Carpio MD 07/02/23 21:[address] 07/02/23 20:35 Exam(s): CT L SPINE With Contrast IV Amt: optiray 320 92ml EXAM: CT Lumbar Spine With Intravenous Contrast CLINICAL HISTORY: Reason for exam: weakness, fall, dementia. TECHNIQUE: Axial computed tomography images of the lumbar spine with intravenous contrast. CTDI is 45.13 mGy and DLP is 1879.69 mGy-cm. Automated exposure control was utilized for the study. A dose lowering technique was utilized adhering to the principles of ALARA. CONTRAST: Patient received optiray 320 92ml of IV contrast COMPARISON: No relevant prior studies available. FINDINGS: No acute fracture. Mild levoscoliosis. Degenerative disc disease most pronounced at L3-4 and L4-5. Osteopenia. L1-L2: No spinal canal or foraminal stenosis. L2-L3: Facet arthropathy. Moderate canal stenosis. Mild foraminal stenosis bilaterally. L3-4: Disc osteophyte and facet arthropathy. Severe canal stenosis. Moderate right and mild left foraminal stenosis. L4-5: Disc osteophyte and facet arthropathy. Severe canal stenosis. Moderate bilateral foraminal stenosis. L5-S1: Facet arthropathy. No canal stenosis. Moderate bilateral foraminal stenosis. IMPRESSION: 1. No acute fracture. 2. Advanced degenerative spondylosis. Electronically signed by: Casey Carpio MD 07/02/23 21:45 PM Abdomen/Pelvis CT 07/02/23 20:36 Exam(s): CT ABDOMEN + PELVIS With Contrast IV Amt: optiray 320 92ml EXAM: CT Abdomen and Pelvis With Intravenous Contrast CLINICAL HISTORY: Reason for exam: weakness, fall, dementia. TECHNIQUE: Axial computed tomography images of the abdomen and pelvis with intravenous contrast. CTDI is 24 mGy and DLP is 1216 mGy-cm. Automated exposure control was utilized for the study. A dose lowering technique was utilized adhering to the principles of ALARA. CONTRAST: Patient received optiray 320 92ml of IV contrast COMPARISON: CT 06/09/2018 FINDINGS: Lung bases: Atelectasis at the lung bases. ABDOMEN: Liver: Unremarkable. Gallbladder and bile ducts: Status post cholecystectomy. Pancreas: Unremarkable. Spleen: Unremarkable. Adrenals: Unremarkable. Kidneys and ureters: Atrophy within the right kidney. Left kidney unremarkable. No hydronephrosis. Stomach and bowel: Unremarkable. PELVIS: Appendix: No findings to suggest acute appendicitis. Bladder: Unremarkable. Reproductive: Unremarkable as visualized. ABDOMEN and PELVIS: Intraperitoneal space: Unremarkable. No free air. No significant fluid collection. Retroperitoneal space: Abnormal high attenuation soft tissue within the left retroperitoneum near the level of the aortic bifurcation measuring 3.0 x 1.5 cm (series 5 image 52). Bones/joints: No acute fracture. Soft tissues: Unremarkable. Vasculature: Aortobiiliac atherosclerotic calcifications. No dissection or aneurysm. Lymph nodes: Unremarkable. IMPRESSION: Abnormal high attenuation soft tissue within the left retroperitoneum near the level of the aortic bifurcation measuring 3.0 x 1.5 cm (series 5 image 52). This could represent a small retroperitoneal hematoma or an abnormal lymph node. Consider follow-up CT in 3 months to evaluate for resolution. Electronically signed by: Casey Carpio MD 07/02/23 21:42 PM Discharge Plan Visit Data Chief Complaint: Weakness Stated Complaint: LETHARGIC,WEAK,DIZZY,SOB ED Provider: Darrell Hawthorne Discharge Problem: Generalized weakness, Dementia, Adult failure to thrive Discharge Instructions Interventions: ED Discharge Assessment Last Done: 07/02/23 23:15 Discharge Problem: Dementia Qualifiers: Dementia type: unspecified type Dementia severity: unspecified severity D ementia behavioral or psychological symptom: unspecified whether behavioral, psychotic, or mood disturbance or anxiety Qualified Code(s): F03.90 - Unspecified dementia, unspecified severity, without behavioral disturbance, psychotic disturbance, mood disturbance, and anxiety
[2023-07-02 18:46] LABS: Basophils # (auto) 0.05 K/uL (0.00-0.20); Basophils % (auto) 0.5 %; Eosinophils # (auto) 0.18 K/uL (0.00-0.50); Eosinophils % (auto) 1.9 %; Hematocrit (blood only) 28.2 % (42.0-52.0); Hemoglobin 9.8 g/dl (14.0-18.0); Immature Granulocytes # (auto) 0.06 K/uL (0.01-0.20); Immature Granulocytes % (auto) 0.6 %; Lymphocytes # (auto) 0.61 K/uL (1.20-3.40); Lymphocytes % (auto) 6.3 %; Mean Corpuscular Hemoglobin 29.5 pg (25.0-34.0); Mean Corpuscular Hgb Conc 34.8 g/dL (32.0-36.0); Mean Corpuscular Volume 84.9 fL (80.0-100.0); Mean Platelet Volume 9.5 fL (9.4-12.4); Monocytes # (auto) 1.19 K/uL (0.11-0.59); Monocytes % (auto) 12.3 %; Neutrophils % (auto) 78.4 %; Platelet Count 380 K/uL (130-400); RDW Coefficient of Variation 14.4 % (11.5-14.5); RDW Standard Deviation 44.6 fL (36.4-46.3); Red Blood Count 3.32 M/uL (4.70-6.10); White Blood Count 9.69 K/ul (4.8-10.8)
--- NOTE | 2023-07-02 18:47 | XRay Report ---
XR chest 1V portable CLINICAL HISTORY: weakness TECHNIQUE: Single frontal radiograph of the chest was obtained. Comparison: Comparison is made to chest radiograph 05/31/2023 FINDINGS: No lines and tubes are seen. Cardiomegaly is noted. The aortic arch is calcified. Previous seen noted right pulmonary density is again seen. No evidence of pleural effusion or pneumothorax. IMPRESSION: No acute abnormality. Right perihilar pulmonary density is seen. ACT 112: Negative or not required by law. Electronically signed by: Alejo Mix M.D. 07/02/2023 6:46 PM
[2023-07-02] MEDS: SODIUM CHLORIDE 0.9% 1,000 ML IV ONE (18:50)
[2023-07-02 19:08] LABS: Albumin Globulin Ratio 1.3 (0.9-2); Albumin Level 3.7 gm/dl (3.4-5.0); Bilirubin,Total 1.3 mg/dl (0.2-1.0); Calcium 9.1 mg/dl (8.6-10.3); Est GFR (African American) 62.5 ml/min; Est GFR (Non-African American) 53.9 ml/min; Globulin 2.9 gm/dl (2.5-4.0); Phosphorus 3.2 mg/dl (2.5-4.9); Potassium 4.5 mmol/L (3.5-5.1); Total Protein 6.6 gm/dl (6.0-8.3)
[2023-07-02 19:13] LABS: Troponin I High Sensitivity 7.8 pg/ml (0-20)
[2023-07-02 19:22] LABS: Thyroid Stimulating Hormone 4.365 uIu/ml (0.300-4.500)
[2023-07-02] MEDS: OPTIRAY 320 100ml IV ONE (21:01)
--- NOTE | 2023-07-02 21:37 | CT Scan Report ---
Exam(s): CT HEAD Without Contrast EXAM: CT Head Without Intravenous Contrast CLINICAL HISTORY: Reason for exam: weakness, fall, dementia. TECHNIQUE: Axial computed tomography images of the head/brain without intravenous contrast. CTDI is 45 mGy and DLP is 1879 mGy-cm. Automated exposure control was utilized for the study. A dose lowering technique was utilized adhering to the principles of ALARA. COMPARISON: No relevant prior studies available. FINDINGS: Brain: No intracranial hemorrhage, mass-effect, or cerebral edema. Basal ganglia calcifications. Chronic right frontal infarct. Atrophy and chronic microvascular ischemic changes. Ventricles: Unremarkable. Bones/joints: Unremarkable. No fracture. Soft tissues: Unremarkable. Sinuses: No acute sinusitis. Mastoid air cells: Unremarkable as visualized. IMPRESSION: 1. No acute intracranial abnormality. 2. Atrophy, chronic right frontal infarct, and chronic white matter changes. Electronically signed by: Casey Carpio MD 07/02/23 21:36 PM
--- NOTE | 2023-07-02 21:43 | CT Scan Report ---
Exam(s): CT ABDOMEN + PELVIS With Contrast IV Amt: optiray 320 92ml EXAM: CT Abdomen and Pelvis With Intravenous Contrast CLINICAL HISTORY: Reason for exam: weakness, fall, dementia. TECHNIQUE: Axial computed tomography images of the abdomen and pelvis with intravenous contrast. CTDI is 24 mGy and DLP is 1216 mGy-cm. Automated exposure control was utilized for the study. A dose lowering technique was utilized adhering to the principles of ALARA. CONTRAST: Patient received optiray 320 92ml of IV contrast COMPARISON: CT 06/09/2018 FINDINGS: Lung bases: Atelectasis at the lung bases. ABDOMEN: Liver: Unremarkable. Gallbladder and bile ducts: Status post cholecystectomy. Pancreas: Unremarkable. Spleen: Unremarkable. Adrenals: Unremarkable. Kidneys and ureters: Atrophy within the right kidney. Left kidney unremarkable. No hydronephrosis. Stomach and bowel: Unremarkable. PELVIS: Appendix: No findings to suggest acute appendicitis. Bladder: Unremarkable. Reproductive: Unremarkable as visualized. ABDOMEN and PELVIS: Intraperitoneal space: Unremarkable. No free air. No significant fluid collection. Retroperitoneal space: Abnormal high attenuation soft tissue within the left retroperitoneum near the level of the aortic bifurcation measuring 3.0 x 1.5 cm (series 5 image 52). Bones/joints: No acute fracture. Soft tissues: Unremarkable. Vasculature: Aortobiiliac atherosclerotic calcifications. No dissection or aneurysm. Lymph nodes: Unremarkable. IMPRESSION: Abnormal high attenuation soft tissue within the left retroperitoneum near the level of the aortic bifurcation measuring 3.0 x 1.5 cm (series 5 image 52). This could represent a small retroperitoneal hematoma or an abnormal lymph node. Consider follow-up CT in 3 months to evaluate for resolution. Electronically signed by: Casey Carpio MD 07/02/23 21:42 PM
--- NOTE | 2023-07-02 21:47 | CT Scan Report ---
Exam(s): CT L SPINE With Contrast IV Amt: optiray 320 92ml EXAM: CT Lumbar Spine With Intravenous Contrast CLINICAL HISTORY: Reason for exam: weakness, fall, dementia. TECHNIQUE: Axial computed tomography images of the lumbar spine with intravenous contrast. CTDI is 45.13 mGy and DLP is 1879.69 mGy-cm. Automated exposure control was utilized for the study. A dose lowering technique was utilized adhering to the principles of ALARA. CONTRAST: Patient received optiray 320 92ml of IV contrast COMPARISON: No relevant prior studies available. FINDINGS: No acute fracture. Mild levoscoliosis. Degenerative disc disease most pronounced at L3-4 and L4-5. Osteopenia. L1-L2: No spinal canal or foraminal stenosis. L2-L3: Facet arthropathy. Moderate canal stenosis. Mild foraminal stenosis bilaterally. L3-4: Disc osteophyte and facet arthropathy. Severe canal stenosis. Moderate right and mild left foraminal stenosis. L4-5: Disc osteophyte and facet arthropathy. Severe canal stenosis. Moderate bilateral foraminal stenosis. L5-S1: Facet arthropathy. No canal stenosis. Moderate bilateral foraminal stenosis. IMPRESSION: 1. No acute fracture. 2. Advanced degenerative spondylosis. Electronically signed by: Casey Carpio MD 07/02/23 21:45 PM
[2023-07-02 22:29] LABS: Appearance Urine Clear (Clear); Bacteria Urine Automated Negative (Negative); Bilirubin Urine Negative (Negative); Blood Urine Negative (Negative); Cast Urine Automated 0 /lpf (0-5); Color Urine Dark Yellow; Glucose Urine UA Negative (Negative); Ketones Urine Trace (Negative); Leukocyte Esterase Urine Negative (Negative); Nitrite Urine Negative (Negative); Protein Urine Trace (Negative); RBC Urine Automated 0-4 /hpf (0-4); Specific Gravity Urine 1.021 (1.000-1.030); Urobilinogen Urine Negative (Negative)
[2023-07-02 22:56] LABS: Hematocrit (blood only) 27.2 % (42.0-52.0); Hemoglobin 9.4 g/dl (14.0-18.0)
--- NOTE | 2023-07-02 22:58 | History & Physical Report ---
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 Medical telemetry EEG, MRI brain, Neurology consult Re: Involuntary jerks rule out seizures Hold antiplatelet Rx given possible small retroperitoneal bleed causing hemoglobin drop from baseline Follow H&H, transfuse PRBC if hemoglobin less than 8 and or for symptomatic anemia General surgery consult Re: Traumatic retroperitoneal bleed PT OT eval Social service re: discharge planning, possible placement DVT prophylaxis. SCDs Re: Retroperitoneal bleed DNR as per patient's prior directives as per daughter. Patient daughter requesting updates providers. Ms. Teressa Chavira, contact #[phone]. Text document was generated using [employer] voice recognition software. It may contain grammatical or spelling errors. Kindly contact undersigned for clarification of any documentation item in question. History of Present Illness Chief Complaint: Weakness, fall Primary Care Provider: Bonilla Magdaleno MD History obtained from patient, family, and records. Limited history from patient secondary to obtunded state. 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 Recent confinement last month for TIA symptoms. Normal brain MRI. Patient discharged on dual antiplatelet therapy recommendations to complete 3 weeks. Patient fell at home while trying to help his daughter in the backyard. Some back pain and bruising from falling. No head trauma. Patient unable to get up from bed today. Increased weakness and sleepiness. Episodic involuntary shaking noted at home. No home narcotic medications as per daughter. Patient daughter feels she cannot care for father anymore given advancing dementia. Patient brought to the ER for evaluation. Unable to answer questions due to obtunded state. Medical History as above Surgical History : Eye surgery Family History : Leukemia, stroke Personal/Social history : Past tobacco abuse no EtOH intake, retired [employer] employee Allergies Allergy/AdvReac Type Severity Reaction Status Date / Time No Known Allergies Allergy Unknown Verified 07/02/23 19:08 Home Medications Medication Instructions Recorded Confirmed Type nitroglycerin 0.4 mg sublingual 0.4 mg sublingual DIRECTED PRN 06/09/18 07/02/23 History tablet (Nitrostat) Chest Pain atorvastatin 80 mg tablet 80 mg PO QAM #30 tabs 02/07/21 07/02/23 Rx famotidine 20 mg tablet 20 mg PO DAILY PRN Heartburn 03/01/23 07/02/23 History sodium chloride 1,000 mg soluble 1,000 mg PO QAM 03/01/23 07/02/23 History tablet aspirin 81 mg tablet,delayed 81 mg PO QAM #30 tabs 06/03/23 07/02/23 Rx release amlodipine 2.5 mg tablet 2.5 mg PO QAM 07/02/23 07/02/23 History metoprolol succinate 25 mg 12.5 mg PO QAM 07/02/23 07/02/23 History tablet,extended release 24 hr (Toprol XL) multivitamin 1 tab PO QAM 07/02/23 07/02/23 History pantoprazole 40 mg tablet,delayed 40 mg PO QAM 07/02/23 07/02/23 History release Past Med/Surg History Medical History CKD (chronic kidney disease), stage III Chronic hyponatremia History of COVID-19 Cerebrovascular disease TIA RUE weakness 02/23/20 GERD (gastroesophageal reflux disease) Do not resuscitate status Per pt's advance directives. 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 Brunner Status post coronary artery stent placement Family History Mother Heart disease Father Myocardial infarction Sister Cancer ? GI Other Diabetes Hypertension Social History Smoking Status: Unknown if ever smoked Second Hand Exposure: No; Do You Dip or Chew Tobacco: No; Hx Alcohol Use: No Hx Substance Use: No Preferred Language: Pashto Communication Ability: Effective Communication Ability Comment: blind left eye, 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 [employer] Required: No Beliefs That Will Affect Care: None marital status: / Current Living Situation: Family Current Living Situation Comment: Help from daughter current occupational status: retired How many Children do You have: 2 Other Information That Helps Us Care for You: No Feels Safe at Home: Yes Safety Concerns: Feels Safe At This Time Assistive Devices: Walker Review of Systems Review of Systems: Could not be obtained secondary to obtunded state Physical Exam Physical Exam: GENERAL: Obtunded, no respiratory distress, episodic myoclonic jerks SKIN: Pallor, warm HEENT: Pale palpebral conjunctivae, dry buccal mucosa NECK : Supple, no tenderness CHEST : Decreased breath sounds, no tenderness HEART : RRR, no obvious murmurs ABDOMEN: Some distention, no tenderness BACK : Low back tenderness EXTREMITIES : No LE swelling/tenderness, no other conspicuous deformities noted NEUROLOGIC : Obtunded,, no facial asymmetry, gait and stance not assessed Results & Data Results & Data Vital Signs (Past 12 Hours) Vital Signs Temp Pulse Pulse Resp BP BP Pulse Ox 07/02/23 22:44 67 07/02/23 20:03 61 16 94 07/02/23 19:40 69 21 93 07/02/23 19:30 66 20 96 07/02/23 19:30 149/78 H 07/02/23 19:20 66 20 93 07/02/23 19:10 71 21 93 07/02/23 19:02 129/73 07/02/23 19:02 74 94 07/02/23 19:00 24 07/02/23 18:50 70 95 07/02/23 18:41 74 19 92 07/02/23 18:41 92 H 19 141/92 H 94 07/02/23 18:41 07/02/23 18:40 72 20 96 07/02/23 18:38 69 07/02/23 18:30 141/92 H 07/02/23 18:30 70 15 07/02/23 18:21 79 21 07/02/23 18:10 36.9 C 74 19 98 O2 Del Method O2 Flow Rate 07/02/23 22:44 07/02/23 20:03 Nasal Cannula 2 07/02/23 19:40 07/02/23 19:30 07/02/23 19:30 07/02/23 19:20 07/02/23 19:10 07/02/23 19:02 07/02/23 19:02 07/02/23 19:00 07/02/23 18:50 07/02/23 18:41 Room Air 07/02/23 18:41 Room Air 07/02/23 18:41 Room Air 07/02/23 18:40 07/02/23 18:38 07/02/23 18:30 07/02/23 18:30 07/02/23 18:21 07/02/23 18:10 Room Air Laboratory Results Laboratory Results WBC 9.69 K/ul (4.8-10.8) 07/02/23 18:25 RBC 3.32 M/uL (4.70-6.10) L 07/02/23 18:25 Hgb 9.4 g/dl (14.0-18.0) L 07/02/23 22:42 Hct 27.2 % (42.0-52.0) L 07/02/23 22:42 MCV 84.9 fL (80.0-100.0) 07/02/23 18:25 MCH 29.5 pg (25.0-34.0) 07/02/23 18:25 MCHC 34.8 g/dL (32.0-36.0) 07/02/23 18:25 RDW Std Deviation 44.6 fL (36.4-46.3) 07/02/23 18:25 RDW Coeff of Roderick 14.4 % (11.5-14.5) 07/02/23 18:25 Plt Count 380 K/uL (130-400) 07/02/23 18:25 MPV 9.5 fL (9.4-12.4) 07/02/23 18:25 Immature Gran % (Auto) 0.6 % 07/02/23 18:25 Neut % (Auto) 78.4 % 07/02/23 18:25 Lymph % (Auto) 6.3 % 07/02/23 18:25 Gaines % (Auto) 12.3 % 07/02/23 18:25 Eos % (Auto) 1.9 % 07/02/23 18:25 Baso % (Auto) 0.5 % 07/02/23 18:25 Neut # (Auto) 7.60 K/uL (1.40-6.50) H 07/02/23 18:25 Lymph # (Auto) 0.61 K/uL (1.20-3.40) L 07/02/23 18:25 Gaines # (Auto) 1.19 K/uL (0.11-0.59) H 07/02/23 18:25 Eos # (Auto) 0.18 K/uL (0.00-0.50) 07/02/23 18:25 Baso # (Auto) 0.05 K/uL (0.00-0.20) 07/02/23 18:25 Immature Gran # (Auto) 0.06 K/uL (0.01-0.20) 07/02/23 18:25 Sodium 132 mmol/L (136-145) L 07/02/23 18:25 Potassium 4.5 mmol/L (3.5-5.1) 07/02/23 18:25 Chloride 100 mmol/L (98-107) 07/02/23 18:25 Carbon Dioxide 25 mmol/L (21-32) 07/02/23 18:25 Anion Gap 7 (3-11) 07/02/23 18:25 BUN 23 mg/dl (6-23) 07/02/23 18:25 Creatinine 1.21 mg/dl (0.6-1.4) 07/02/23 18:25 Est Cr Clr Drug Dosing 41.0 ml/min 07/02/23 18:25 Est GFR ( Amer) 62.5 ml/min 07/02/23 18:25 Est GFR (Non-Af Amer) 53.9 ml/min 07/02/23 18:25 BUN/Creatinine Ratio 19.0 (10-20) 07/02/23 18:25 Glucose 108 mg/dl (70-99(Fasting)) H 07/02/23 18:25 Calcium 9.1 mg/dl (8.6-10.3) 07/02/23 18:25 Phosphorus 3.2 mg/dl (2.5-4.9) 07/02/23 18:25 Magnesium 2.0 mg/dl (1.7-2.4) 07/02/23 18:25 Total Bilirubin 1.3 mg/dl (0.2-1.0) H 07/02/23 18:25 AST 29 U/L (13-39) 07/02/23 18:25 ALT 35 U/L (7-52) 07/02/23 18:25 Alkaline Phosphatase 94 U/L (34-104) 07/02/23 18:25 Troponin I High Sens 7.8 pg/ml (0-20) 07/02/23 18:25 Total Protein 6.6 gm/dl (6.0-8.3) 07/02/23 18:25 Albumin 3.7 gm/dl (3.4-5.0) 07/02/23 18:25 Globulin 2.9 gm/dl (2.5-4.0) 07/02/23 18:25 Albumin/Globulin Ratio 1.3 (0.9-2) 07/02/23 18:25 Lipase 18 U/L (11-82) 07/02/23 18:25 TSH 4.365 uIu/ml (0.300-4.500) 07/02/23 18:25 Urine Color Dark Yellow 07/02/23 22:15 Urine Appearance Clear (Clear) 07/02/23 22:15 Urine pH 7.0 (4.5-7.5) 07/02/23 22:15 Ur Specific Newman 1.021 (1.000-1.030) 07/02/23 22:15 Urine Protein Trace (Negative) H 07/02/23 22:15 Urine Glucose (UA) Negative (Negative) 07/02/23 22:15 Urine Ketones Trace (Negative) H 07/02/23 22:15 Urine Blood Negative (Negative) 07/02/23 22:15 Urine Nitrite Negative (Negative) 07/02/23 22:15 Urine Bilirubin Negative (Negative) 07/02/23 22:15 Urine Urobilinogen Negative (Negative) 07/02/23 22:15 Ur Leukocyte Esterase Negative (Negative) 07/02/23 22:15 Urine WBC (Auto) 1-5 /hpf (0-5) 07/02/23 22:15 Urine RBC (Auto) 0-4 /hpf (0-4) 07/02/23 22:15 U Hyaline Cast (Auto) 0 /lpf (0-5) 07/02/23 22:15 U Epithel Cells (Auto) 10-20 /lpf (0-5) H 07/02/23 22:15 Urine Bacteria (Auto) Negative (Negative) 07/02/23 22:15 Impressions Chest X-Ray 07/02/23 18:20 XR chest 1V portable CLINICAL HISTORY: weakness TECHNIQUE: Single frontal radiograph of the chest was obtained. Comparison: Comparison is made to chest radiograph 05/31/2023 FINDINGS: No lines and tubes are seen. Cardiomegaly is noted. The aortic arch is calcified. Previous seen noted right pulmonary density is again seen. No evidence of pleural effusion or pneumothorax. IMPRESSION: No acute abnormality. Right perihilar pulmonary density is seen. ACT 112: Negative or not required by law. Electronically signed by: Alejo Mix M.D. 07/02/2023 6:[address] 07/02/23 20:35 Exam(s): CT HEAD Without Contrast EXAM: CT Head Without Intravenous Contrast CLINICAL HISTORY: Reason for exam: weakness, fall, dementia. TECHNIQUE: Axial computed tomography images of the head/brain without intravenous contrast. CTDI is 45 mGy and DLP is 1879 mGy-cm. Automated exposure control was utilized for the study. A dose lowering technique was utilized adhering to the principles of ALARA. COMPARISON: No relevant prior studies available. FINDINGS: Brain: No intracranial hemorrhage, mass-effect, or cerebral edema. Basal ganglia calcifications. Chronic right frontal infarct. Atrophy and chronic microvascular ischemic changes. Ventricles: Unremarkable. Bones/joints: Unremarkable. No fracture. Soft tissues: Unremarkable. Sinuses: No acute sinusitis. Mastoid air cells: Unremarkable as visualized. IMPRESSION: 1. No acute intracranial abnormality. 2. Atrophy, chronic right frontal infarct, and chronic white matter changes. Electronically signed by: Casey Carpio MD 07/02/23 21:[address] 07/02/23 20:35 Exam(s): CT L SPINE With Contrast IV Amt: optiray 320 92ml EXAM: CT Lumbar Spine With Intravenous Contrast CLINICAL HISTORY: Reason for exam: weakness, fall, dementia. TECHNIQUE: Axial computed tomography images of the lumbar spine with intravenous contrast. CTDI is 45.13 mGy and DLP is 1879.69 mGy-cm. Automated exposure control was utilized for the study. A dose lowering technique was utilized adhering to the principles of ALARA. CONTRAST: Patient received optiray 320 92ml of IV contrast COMPARISON: No relevant prior studies available. FINDINGS: No acute fracture. Mild levoscoliosis. Degenerative disc disease most pronounced at L3-4 and L4-5. Osteopenia. L1-L2: No spinal canal or foraminal stenosis. L2-L3: Facet arthropathy. Moderate canal stenosis. Mild foraminal stenosis bilaterally. L3-4: Disc osteophyte and facet arthropathy. Severe canal stenosis. Moderate right and mild left foraminal stenosis. L4-5: Disc osteophyte and facet arthropathy. Severe canal stenosis. Moderate bilateral foraminal stenosis. L5-S1: Facet arthropathy. No canal stenosis. Moderate bilateral foraminal stenosis. IMPRESSION: 1. No acute fracture. 2. Advanced degenerative spondylosis. Electronically signed by: Casey Carpio MD 07/02/23 21:45 PM Abdomen/Pelvis CT 07/02/23 20:36 Exam(s): CT ABDOMEN + PELVIS With Contrast IV Amt: optiray 320 92ml EXAM: CT Abdomen and Pelvis With Intravenous Contrast CLINICAL HISTORY: Reason for exam: weakness, fall, dementia. TECHNIQUE: Axial computed tomography images of the abdomen and pelvis with intravenous contrast. CTDI is 24 mGy and DLP is 1216 mGy-cm. Automated exposure control was utilized for the study. A dose lowering technique was utilized adhering to the principles of ALARA. CONTRAST: Patient received optiray 320 92ml of IV contrast COMPARISON: CT 06/09/2018 FINDINGS: Lung bases: Atelectasis at the lung bases. ABDOMEN: Liver: Unremarkable. Gallbladder and bile ducts: Status post cholecystectomy. Pancreas: Unremarkable. Spleen: Unremarkable. Adrenals: Unremarkable. Kidneys and ureters: Atrophy within the right kidney. Left kidney unremarkable. No hydronephrosis. Stomach and bowel: Unremarkable. PELVIS: Appendix: No findings to suggest acute appendicitis. Bladder: Unremarkable. Reproductive: Unremarkable as visualized. ABDOMEN and PELVIS: Intraperitoneal space: Unremarkable. No free air. No significant fluid collection. Retroperitoneal space: Abnormal high attenuation soft tissue within the left retroperitoneum near the level of the aortic bifurcation measuring 3.0 x 1.5 cm (series 5 image 52). Bones/joints: No acute fracture. Soft tissues: Unremarkable. Vasculature: Aortobiiliac atherosclerotic calcifications. No dissection or aneurysm. Lymph nodes: Unremarkable. IMPRESSION: Abnormal high attenuation soft tissue within the left retroperitoneum near the level of the aortic bifurcation measuring 3.0 x 1.5 cm (series 5 image 52). This could represent a small retroperitoneal hematoma or an abnormal lymph node. Consider follow-up CT in 3 months to evaluate for resolution. Electronically signed by: Casey Carpio MD 07/02/23 21:42 PM Diagnostic Findings EKG as per my interpretation : Rate 70, NSR, LAD, LAFB, 1 AVB, no ischemia
[2023-07-02] MEDS ORDERED: PROMETHAZINE HCL 6.25 MG in SODIUM CHLORIDE 0.9% 50 ML IV PRN (23:02)
[2023-07-03 00:09] LABS: Base Excess VBG 1.3 mEq/L; HCO3 VBG 27 mmol/L; Oxygen Saturation VBG < 60.0 %; PCO2 VBG 47 mmHg (38-50); PO2 VBG 22 mmHg; pH VBG 7.37 (7.36-7.41)
[2023-07-03 03:56] LABS: Calcium 8.6 mg/dl (8.6-10.3); Potassium 3.9 mmol/L (3.5-5.1)
[2023-07-03 04:01] LABS: Basophils # (auto) 0.05 K/uL (0.00-0.20); Basophils % (auto) 0.6 %; Creatinine Clr Calc Pharmacy 49.6 ml/min; Eosinophils # (auto) 0.26 K/uL (0.00-0.50); Eosinophils % (auto) 3.2 %; Est GFR (African American) 78.6 ml/min; Est GFR (Non-African American) 67.8 ml/min; Hematocrit (blood only) 28.9 % (42.0-52.0); Hemoglobin 9.7 g/dl (14.0-18.0); Immature Granulocytes # (auto) 0.04 K/uL (0.01-0.20); Immature Granulocytes % (auto) 0.5 %; Lymphocytes # (auto) 0.39 K/uL (1.20-3.40); Lymphocytes % (auto) 4.7 %; Mean Corpuscular Hemoglobin 29.6 pg (25.0-34.0); Mean Corpuscular Hgb Conc 33.6 g/dL (32.0-36.0); Mean Corpuscular Volume 88.1 fL (80.0-100.0); Mean Platelet Volume 9.7 fL (9.4-12.4); Monocytes # (auto) 1.09 K/uL (0.11-0.59); Monocytes % (auto) 13.2 %; Neutrophils # (auto) 6.42 K/uL (1.40-6.50); Neutrophils % (auto) 77.8 %; Platelet Count 347 K/uL (130-400); RDW Coefficient of Variation 14.3 % (11.5-14.5); RDW Standard Deviation 46.4 fL (36.4-46.3); Red Blood Count 3.28 M/uL (4.70-6.10); White Blood Count 8.25 K/ul (4.8-10.8)
[2023-07-03] MEDS ORDERED: LORazepam 1 MG in SYRINGE 0.5 ML IV PRN (05:54)
[2023-07-03] MEDS: amLODIPine BESYLATE 5 MG TAB PO SCH (08:24)
[2023-07-03] MEDS: MULTIVITAMIN TAB PO SCH (08:24)
[2023-07-03] MEDS: PANTOprazole 40 MG TAB PO SCH (08:24)
[2023-07-03] MEDS: METOPROLOL SUCC 25MG EXT REL TAB PO SCH (08:24)
[2023-07-03] MEDS: ATORVASTATIN 40 MG TAB PO SCH (08:25)
--- NOTE | 2023-07-03 08:57 | Surgery Consultation ---
<Statement entered by Abraham Rogers MD - 07/03/23 09:23> Patient seen and examined. Agree with the above plan. Date of Consultation July 03, 2023 Assessment & Plan (1) Encephalopathy: (2) Dementia: (3) Abnormal CT scan: (4) Status post fall: Plan 87 yo male with dementia, recent fall, and increasing weakness presented to ED and CT scan of abdomen and pelvis showing possible retroperitoneal bleed vs lymph node. Hemoglobin stable at 9.7. Hemodynamically stable. No abdominal pain. Abdominal examination soft and benign. No surgical intervention required. Would recommend serial H&H and if there is a drop in hemoglobin or concern for active bleeding would recommend repeat imaging with CTA . Would recommend repeating CT scan of abd/pelvis in 3 months as recommended by radiology. our services signing off, please call with any concerns. Discussed with Dr. Rogers who agrees with above. History of Present Illness Reason for Consultation: Retroperitoneal bleed vs lymph node Requesting Physician: Dr. Shira MD Attending Physician: Kathya Cardona MD History of Present Illness Mr Brunner is a 87 yo male with past medical history of dementia, CKD, cerebrovascular disease, GERD, Carotid artery disease, dyslipidemia, CAD, transient cerebral ischemia, low grade b-cell lymphoma, HTN who presented to ED s/p fall and increased weakness. Recent hospitalization for TIA symptoms. He underwent ct scan of abdomen and pelvis which showed possible retroperitoneal bleed vs lymph node. Our services consulted due to traumatic fall and CT scan findings. History obtained by chart. Allergies Allergy/AdvReac Type Severity Reaction Status Date / Time No Known Allergies Allergy Unknown Verified 07/02/23 19:08 Home Medications Medication Instructions Recorded Confirmed Type nitroglycerin 0.4 mg sublingual 0.4 mg sublingual DIRECTED PRN 06/09/18 07/02/23 History tablet (Nitrostat) Chest Pain atorvastatin 80 mg tablet 80 mg PO QAM #30 tabs 02/07/21 07/02/23 Rx famotidine 20 mg tablet 20 mg PO DAILY PRN Heartburn 03/01/23 07/02/23 History sodium chloride 1,000 mg soluble 1,000 mg PO QAM 03/01/23 07/02/23 History tablet aspirin 81 mg tablet,delayed 81 mg PO QAM #30 tabs 02/24/24 03/24/24 Rx release amlodipine 2.5 mg tablet 2.5 mg PO QAM 07/02/23 07/02/23 History metoprolol succinate 25 mg 12.5 mg PO QAM 07/02/23 07/02/23 History tablet,extended release 24 hr (Toprol XL) multivitamin 1 tab PO QAM 07/02/23 07/02/23 History pantoprazole 40 mg tablet,delayed 40 mg PO QAM 07/02/23 07/02/23 History release Patient History Medical History CKD (chronic kidney disease), stage III Chronic hyponatremia History of COVID-19 Cerebrovascular disease TIA RUE weakness 02/23/20 GERD (gastroesophageal reflux disease) Do not resuscitate status Per pt's advance directives. 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 Brunner Status post coronary artery stent placement Family History Mother Heart disease Father Myocardial infarction Sister Cancer ? 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 Seamless Tube Roller Required: No Beliefs That Will Affect Care: None marital status: / Current Living Situation: Family Current Living Situation Comment: Help from daughter current occupational status: retired How many Children do You have: 2 Other Information That Helps Us Care for You: No Feels Safe at Home: Yes Safety Concerns: Feels Safe At This Time Assistive Devices: Walker Review of Systems Review of Systems: All systems reviewed & are unremarkable except as noted in Subjective limited ROS, patient poor historian Physical Exam Constitutional: WD/WN, vitals as above cooperative and comfortable; no acute distress, not ill appearing, not diaphoretic and not lethargic Respiratory: normal respiratory effort; no respiratory distress and no labored breathing Gastrointestinal (Abdomen): Inspection/Auscultation: abdomen normal to inspection; abdomen not distended Percussion/Palpation: abdomen soft; abdomen nontender, no guarding and abdomen not rigid patches of ecchymosis on the abdominal wall Skin: no rashes, warm and dry Psychiatric: Orientation: alert Results & Data Vital Signs (Past 12 Hours) Vital Signs Temp Pulse Pulse Resp BP BP Pulse Ox 07/03/23 08:29 36.9 C 69 18 120/59 L 98 07/03/23 08:13 07/03/23 07:03 69 07/03/23 06:58 07/03/23 06:00 67 22 109/70 98 07/03/23 05:00 66 24 154/71 H 94 07/03/23 04:00 69 21 151/95 H 87 L 07/03/23 03:00 67 23 164/85 H 98 07/03/23 02:00 66 13 159/95 H 99 07/03/23 00:41 67 18 163/85 H 98 07/03/23 00:08 71 18 163/85 H 89 L 07/02/23 23:35 71 20 151/80 H 94 07/02/23 23:00 66 15 151/102 H 95 07/02/23 22:44 67 07/02/23 22:30 63 23 97 07/02/23 22:00 73 20 96 07/02/23 21:30 68 23 99 07/02/23 21:08 64 25 H 98 Pulse Ox O2 Del Method O2 Del Method O2 Flow Rate O2 Flow Rate 07/03/23 08:29 Nasal Cannula 2 07/03/23 08:13 Nasal Cannula 2 07/03/23 07:03 07/03/23 06:58 96 Nasal Cannula 2 07/03/23 06:00 Nasal Cannula 2 07/03/23 05:00 07/03/23 04:00 07/03/23 03:00 Nasal Cannula 2 07/03/23 02:00 Nasal Cannula 2 07/03/23 00:41 Nasal Cannula 2 07/03/23 00:08 07/02/23 23:35 07/02/23 23:00 07/02/23 22:44 07/02/23 22:30 07/02/23 22:00 07/02/23 21:30 07/02/23 21:08 Laboratory Results 07/03/23 07/02/23 07/02/23 Range/Units 03:05 23:44 22:42 WBC 8.25 (4.8-10.8) K/ul RBC 3.28 L (4.70-6.10) M/uL Hgb 9.7 L 9.4 L (14.0-18.0) g/dl Hct 28.9 L 27.2 L (42.0-52.0) % MCV 88.1 (80.0-100.0) fL MCH 29.6 (25.0-34.0) pg MCHC 33.6 (32.0-36.0) g/dL RDW Std Deviation 46.4 H (36.4-46.3) fL RDW Coeff of Roderick 14.3 (11.5-14.5) % Plt Count 347 (130-400) K/uL MPV 9.7 (9.4-12.4) fL Immature Gran % (Auto) 0.5 % Neut % (Auto) 77.8 % Lymph % (Auto) 4.7 % [place] % (Auto) 13.2 % Eos % (Auto) 3.2 % Baso % (Auto) 0.6 % Neut # (Auto) 6.42 (1.40-6.50) K/uL Lymph # (Auto) 0.39 L (1.20-3.40) K/uL [place] # (Auto) 1.09 H (0.11-0.59) K/uL Eos # (Auto) 0.26 (0.00-0.50) K/uL Baso # (Auto) 0.05 (0.00-0.20) K/uL Immature Gran # (Auto) 0.04 (0.01-0.20) K/uL VBG pH 7.37 (7.36-7.41) VBG pCO2 47 (38-50) mmHg VBG pO2 22 mmHg VBG HCO3 27 mmol/L VBG O2 Saturation < 60.0 % VBG Base Excess 1.3 mEq/L Sodium 131 L 131 L (136-145) mmol/L Potassium 3.9 (3.5-5.1) mmol/L Chloride 100 (98-107) mmol/L Carbon Dioxide 23 (21-32) mmol/L Anion Gap 8 (3-11) BUN 18 (6-23) mg/dl Creatinine 1.00 (0.6-1.4) mg/dl Est Cr Clr Drug Dosing 49.6 ml/min Est GFR ( Amer) 78.6 ml/min Est GFR (Non-Af Amer) 67.8 ml/min BUN/Creatinine Ratio 18.0 (10-20) Glucose 90 (70-99(Fasting)) mg/dl Osmolality (280-300) mOsm/kg Calcium 8.6 (8.6-10.3) mg/dl Phosphorus (2.5-4.9) mg/dl Magnesium (1.7-2.4) mg/dl Total Bilirubin (0.2-1.0) mg/dl AST (13-39) U/L ALT (7-52) U/L Alkaline Phosphatase (34-104) U/L Ammonia 25.0 (18-72) umol/L Troponin I High Sens (0-20) pg/ml Total Protein (6.0-8.3) gm/dl Albumin (3.4-5.0) gm/dl Globulin (2.5-4.0) gm/dl Albumin/Globulin Ratio (0.9-2) Lipase (11-82) U/L TSH (0.300-4.500) uIu/ml Urine Color Urine Appearance (Clear) Urine pH (4.5-7.5) Ur Specific [place] (1.000-1.030) Urine Protein (Negative) Urine Glucose (UA) (Negative) Urine Ketones (Negative) Urine Blood (Negative) Urine Nitrite (Negative) Urine Bilirubin (Negative) Urine Urobilinogen (Negative) Ur Leukocyte Esterase (Negative) Urine WBC (Auto) (0-5) /hpf Urine RBC (Auto) (0-4) /hpf U Hyaline Cast (Auto) (0-5) /lpf U Epithel Cells (Auto) (0-5) /lpf Urine Bacteria (Auto) (Negative) Blood Type A Negative Antibody Screen NEGATIVE 07/02/23 07/02/23 07/02/23 Range/Units 22:15 18:31 18:25 WBC 9.69 (4.8-10.8) K/ul RBC 3.32 L (4.70-6.10) M/uL Hgb 9.8 L (14.0-18.0) g/dl Hct 28.2 L (42.0-52.0) % MCV 84.9 (80.0-100.0) fL MCH 29.5 (25.0-34.0) pg MCHC 34.8 (32.0-36.0) g/dL RDW Std Deviation 44.6 (36.4-46.3) fL RDW Coeff of Roderick 14.4 (11.5-14.5) % Plt Count 380 (130-400) K/uL MPV 9.5 (9.4-12.4) fL Immature Gran % (Auto) 0.6 % Neut % (Auto) 78.4 % Lymph % (Auto) 6.3 % [place] % (Auto) 12.3 % Eos % (Auto) 1.9 % Baso % (Auto) 0.5 % Neut # (Auto) 7.60 H (1.40-6.50) K/uL Lymph # (Auto) 0.61 L (1.20-3.40) K/uL [place] # (Auto) 1.19 H (0.11-0.59) K/uL Eos # (Auto) 0.18 (0.00-0.50) K/uL Baso # (Auto) 0.05 (0.00-0.20) K/uL Immature Gran # (Auto) 0.06 (0.01-0.20) K/uL VBG pH (7.36-7.41) VBG pCO2 (38-50) mmHg VBG pO2 mmHg VBG HCO3 mmol/L VBG O2 Saturation % VBG Base Excess mEq/L Sodium 132 L (136-145) mmol/L Potassium 4.5 (3.5-5.1) mmol/L Chloride 100 (98-107) mmol/L Carbon Dioxide 25 (21-32) mmol/L Anion Gap 7 (3-11) BUN 23 (6-23) mg/dl Creatinine 1.21 (0.6-1.4) mg/dl Est Cr Clr Drug Dosing 41.0 ml/min Est GFR ( Amer) 62.5 ml/min Est GFR (Non-Af Amer) 53.9 ml/min BUN/Creatinine Ratio 19.0 (10-20) Glucose 108 H (70-99(Fasting)) mg/dl Osmolality 282 (280-300) mOsm/kg Calcium 9.1 (8.6-10.3) mg/dl Phosphorus 3.2 (2.5-4.9) mg/dl Magnesium 2.0 (1.7-2.4) mg/dl Total Bilirubin 1.3 H (0.2-1.0) mg/dl AST 29 (13-39) U/L ALT 35 (7-52) U/L Alkaline Phosphatase 94 (34-104) U/L Ammonia (18-72) umol/L Troponin I High Sens 7.8 (0-20) pg/ml Total Protein 6.6 (6.0-8.3) gm/dl Albumin 3.7 (3.4-5.0) gm/dl Globulin 2.9 (2.5-4.0) gm/dl Albumin/Globulin Ratio 1.3 (0.9-2) Lipase 18 (11-82) U/L TSH 4.365 (0.300-4.500) uIu/ml Urine Color Dark Yellow Urine Appearance Clear (Clear) Urine pH 7.0 (4.5-7.5) Ur Specific [place] 1.021 (1.000-1.030) Urine Protein Trace H (Negative) Urine Glucose (UA) Negative (Negative) Urine Ketones Trace H (Negative) Urine Blood Negative (Negative) Urine Nitrite Negative (Negative) Urine Bilirubin Negative (Negative) Urine Urobilinogen Negative (Negative) Ur Leukocyte Esterase Negative (Negative) Urine WBC (Auto) 1-5 (0-5) /hpf Urine RBC (Auto) 0-4 (0-4) /hpf U Hyaline Cast (Auto) 0 (0-5) /lpf U Epithel Cells (Auto) 10-20 H (0-5) /lpf Urine Bacteria (Auto) Negative (Negative) Blood Type Antibody Screen Diagnostic Findings Exam(s): CT ABDOMEN + PELVIS With Contrast IV Amt: optiray 320 92ml EXAM: CT Abdomen and Pelvis With Intravenous Contrast CLINICAL HISTORY: Reason for exam: weakness, fall, dementia. TECHNIQUE: Axial computed tomography images of the abdomen and pelvis with intravenous contrast. CTDI is 24 mGy and DLP is 1216 mGy-cm. Automated exposure control was utilized for the study. A dose lowering technique was utilized adhering to the principles of ALARA. CONTRAST: Patient received optiray 320 92ml of IV contrast COMPARISON: CT 06/09/2018 FINDINGS: Lung bases: Atelectasis at the lung bases. ABDOMEN: Liver: Unremarkable. Gallbladder and bile ducts: Status post cholecystectomy. Pancreas: Unremarkable. Spleen: Unremarkable. Adrenals: Unremarkable. Kidneys and ureters: Atrophy within the right kidney. Left kidney unremarkable. No hydronephrosis. Stomach and bowel: Unremarkable. PELVIS: Appendix: No findings to suggest acute appendicitis. Bladder: Unremarkable. Reproductive: Unremarkable as visualized. ABDOMEN and PELVIS: Intraperitoneal space: Unremarkable. No free air. No significant fluid collection. Retroperitoneal space: Abnormal high attenuation soft tissue within the left retroperitoneum near the level of the aortic bifurcation measuring 3.0 x 1.5 cm (series 5 image 52). Bones/joints: No acute fracture. Soft tissues: Unremarkable. Vasculature: Aortobiiliac atherosclerotic calcifications. No dissection or aneurysm. Lymph nodes: Unremarkable. IMPRESSION: Abnormal high attenuation soft tissue within the left retroperitoneum near the level of the aortic bifurcation measuring 3.0 x 1.5 cm (series 5 image 52). This could represent a small retroperitoneal hematoma or an abnormal lymph node. Consider follow-up CT in 3 months to evaluate for resolution. (2) Dementia Dementia behavioral or psychological symptom: unspecified whether behavioral, psychotic, or mood disturbance or anxiety Dementia severity: unspecified severity Dementia type: unspecified type Qualified Code(s): F03.90 - Unspecified dementia, unspecified severity, without behavioral disturbance, psychotic disturbance, mood disturbance, and anxiety
[2023-07-03] MEDS: NSS + 20MEQ KCL 20 MEQ/1,000 ML BAG IV ONE (09:51)
--- NOTE | 2023-07-03 12:53 | Hospitalist Progress Note ---
Date of Service July 03, 2023 Assessment & Plan (1) Encephalopathy: Plan: 87-year-old male with PMH of CVA, PVD, HTN, HLD, CAD status post PCI LAD in 2000, CKD stage III, CVA, chronic hyponatremia, B-cell lymphoma, thoracic aortic aneurysm, GERD, dementia, chronic anemia [baseline hemoglobin of 11], traumatic left eye blindness, past tobacco abuse presented to the ED 07/01 after a fall at home (the day [employer]) while trying to help his daughter in the backyard. Sustained some back pain and bruising from falling. No head trauma. Today the patient with increasing weakness and sleepiness and unable to get from bed on the day of arrival. No home narcotic medication as per daughter. Patient's daughter feels she cannot care for her father anymore given advancing dementia. He was brought to the ER for evaluation. He is being managed for the following: Advancing dementia Rule out seizure given myoclonic jerks: Noted at the ED. Mechanical fall Retroperitoneal hematoma Likely metabolic encephalopathy: noted to be obtunded at presentation. Patient coming in with inability of being taken care of at home and fall. Admitting labs: Hemoglobin slightly low at 9.4 at presentation, WBC WNL, VBG WNL, electrolytes at his baseline, LFT WNL, UA not suggestive of UTI Admitting imagings: CXR with no new acute findings. CT head with no new acute intracranial abnormality. Lumbar spine CT with no new acute fracture. Advanced degenerative spondylosis noted. Abdomen pelvis CT with a small left retroperitoneal hematoma 3 x 1.5 cm. F/u MRI Brain and EEG. Follow-up repeat CT scan in 3 months time to evaluate for resolution. Aspirin on hold. Fall precaution. PT/OT. Neuro consult, await recs. General surgery consult Re: Traumatic retroperitoneal bleed - repeat ct abd/pelvis in 3 months Repeat imaging if HnH drops or hemodynamic instability. Acute on chr anemia: baseline Hb around 11, Hb at presentation 9.8. aspirin on hold, monitor HnH. Follow H&H, transfuse PRBC if hemoglobin less than 8 and or for symptomatic anemia Other chronic medical conditions: Continue with/resume home meds as and when able. History CAD sp stenting, history PVD, CVA - aspirin on hold. Valvular heart disease (mild MR/TR/AR/, TTE 2022) HTN, c/t monitor, use prn meds if needed. 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 Prediabetes Dementia, baseline confusion as per daughter. past tobacco abuse Pulmonary mass, h/o. f/u pulm and onco as prior. Social service re: discharge planning, possible placement DVT prophylaxis. SCDs Re: Retroperitoneal bleed DNR/DNI Patient daughter Ms. Teressa Chavira, contact #[phone]. Text document was generated using BPT voice recognition software. It may contain grammatical or spelling errors. Kindly contact undersigned for clarification of any documentation item in question. Admission and Anticipated Discharge Date Admission Date: July 02, 2023 Subjective Patient seen and examined at bedside. Patient was lying in bed, on 2 L oxygen via nasal cannula, NAD, resting comfortably, very hard of hearing, ROS not able in detail, denies cough or pain. Per RN, no seizure-like activity noted. Physical Exam Physical Exam: GENERAL: lethargic, SOLOMON, Orientation x 1-2. NAD, on RA. Old/frail/weak appearing HEENT: No pallor, no icterus. Pupils equal, round and reactive to light. Oral mucosa dry. Left eye with scarring [chronic left eye blindness] NECK: No JVD, no neck masses. HEART: S1 and S2 heard. Regular rate and rhythm. + murmur, no gallop. RESPIRATORY SYSTEM: Normal AP diameter. No accessory muscle use. No wheezing, no crackles. ABDOMEN: Soft, bowel sounds present, nontender, no distention. CENTRAL NERVOUS SYSTEM: No facial droop. Obeys simple commands. Moves extremities. Power bilaterally symmetric EXTREMITIES: No edema, no erythema seen. Results & Data Results & Data Vital Signs (Past 12 Hours) Vital Signs Temp Pulse Pulse Resp BP BP Pulse Ox 07/03/23 08:29 36.9 C 69 18 120/59 L 98 07/03/23 08:13 07/03/23 07:03 69 07/03/23 06:58 07/03/23 06:00 67 22 109/70 98 03/25/24 05:00 66 24 154/71 H 94 07/03/23 04:00 69 21 151/95 H 87 L 07/03/23 03:00 67 23 164/85 H 98 07/03/23 02:00 66 13 159/95 H 99 Pulse Ox O2 Del Method O2 Del Method O2 Flow Rate O2 Flow Rate 07/03/23 08:29 Nasal Cannula 2 07/03/23 08:13 Nasal Cannula 2 07/03/23 07:03 07/03/23 06:58 96 Nasal Cannula 2 07/03/23 06:00 Nasal Cannula 2 07/03/23 05:00 07/03/23 04:00 07/03/23 03:00 Nasal Cannula 2 07/03/23 02:00 Nasal Cannula 2
--- NOTE | 2023-07-03 13:47 | Electrocardiogram Report ---
Test Reason : Blood Pressure : / mmHG Vent. Rate : 072 BPM Atrial Rate : 072 BPM P-R Int : 228 ms QRS Dur : 100 ms QT Int : 376 ms P-R-T Axes : 042 -28 045 degrees QTc Int : 411 ms Sinus rhythm with 1st degree A-V block with Premature atrial complexes Moderate voltage criteria for LVH, may be normal variant ( R in aVL ) Cannot rule out Anterior infarct , age undetermined Abnormal ECG When compared with ECG of 31-MAY-2023 16:03, Premature atrial complexes are now Present Confirmed by Yusef Chapman ([id number]) on 07/03/2023 1:46:54 PM Referred By: REFERRED SELF Confirmed By:Yusef Chapman
--- NOTE | 2023-07-03 15:11 | Neurology Consultation ---
Date of Consultation July 03, 2023 Assessment & Plan (1) Dementia: Patient has known dementia, worsening with difficulty being cared for at home and admitted with a fall. Given his baseline function and exam today would be low yield to repeat the MRI that was already completed less than a month ago. 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 Would not otherwise pursue further neurologic workup. Discussed with Dr. Cardona. Please contact us with any further questions. Telehealth Consultation Telehealth Information Telehealth Information: I performed this visit using a real-time telehealth connection between my location and the patients location ([facility]). After connecting through interactive tele-video, patient was identified by name and date of and/or wristband check.Patient (or authorized healthcare workforce services representative) was informed that this was a telemedicine visit and it was being conducted confidentially over secure lines. My office door was closed and no one else was present in the room with me.Patient (or authorized healthcare workforce services representative) provided consent to proceed with the visit, expressed an understanding of privacy and security of the telemedicine visit, and gave permission to have a hospital workforce services representative in the room in order to assist with the visit and to conduct portions of the visit, as needed. I informed the patient (or authorized healthcare workforce services representative) that I reviewed their record and presented the opportunity for them to ask any questions regarding the visit today. The patient agreed to participate. History of Present Illness Reason for Consultation: Dementia/Fall Requesting Physician: Dr. Cardona Attending Physician: Kathya Cardona MD History of Present Illness Fawad Brunner is an 87 yo M brought to [facility] yesterday after a fall at home. He has known dementia and is cared for by his daughter who is having difficulty with his declining function. The patient denies any complaints today, he does not know where he is and does not remember falling. Overall he was pleasantly confused. Per nursing they did not notice any seizure-like activity but apparen tly in the ED yesterday he had some myoclonic jerks while sleeping. No history of seizures in the past. Allergies Allergy/AdvReac Type Severity Reaction Status Date / Time No Known Allergies Allergy Unknown Verified 07/02/23 19:08 Home Medications Medication Instructions Recorded Confirmed Type nitroglycerin 0.4 mg sublingual 0.4 mg sublingual DIRECTED PRN 06/09/18 07/02/23 History tablet (Nitrostat) Chest Pain atorvastatin 80 mg tablet 80 mg PO QAM #30 tabs 02/07/21 07/02/23 Rx famotidine 20 mg tablet 20 mg PO DAILY PRN Heartburn 03/01/23 07/02/23 History sodium chloride 1,000 mg soluble 1,000 mg PO QAM 03/01/23 07/02/23 History tablet aspirin 81 mg tablet,delayed 81 mg PO QAM #30 tabs 06/03/23 07/02/23 Rx release amlodipine 2.5 mg tablet 2.5 mg PO QAM 07/02/23 07/02/23 History metoprolol succinate 25 mg 12.5 mg PO QAM 07/02/23 07/02/23 History tablet,extended release 24 hr (Toprol XL) multivitamin 1 tab PO QAM 07/02/23 07/02/23 History pantoprazole 40 mg tablet,delayed 40 mg PO QAM 07/02/23 07/02/23 History release Patient History Medical History CKD (chronic kidney disease), stage III Chronic hyponatremia History of COVID-19 Cerebrovascular disease TIA RUE weakness 02/23/20 GERD (gastroesophageal reflux disease) Do not resuscitate status Per pt's advance directives. 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 Brunner Status post coronary artery stent placement Family History Mother Heart disease Father Myocardial infarction Sister Cancer ? 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 No abnormal appendicular movements noted, antigravity strength throughout. Results & Data Vital Signs (Past 12 Hours) Vital Signs Temp Pulse Pulse Resp BP BP Pulse Ox 07/03/23 15:04 36.7 C 70 20 121/69 97 07/03/23 13:33 36.9 C 75 20 148/102 H 97 07/03/23 13:24 71 07/03/23 13:24 07/03/23 08:29 36.9 C 69 18 120/59 L 98 07/03/23 08:13 07/03/23 07:03 69 07/03/23 06:58 07/03/23 06:00 67 22 109/70 98 07/03/23 05:00 66 24 154/71 H 94 07/03/23 04:00 69 21 151/95 H 87 L Pulse Ox O2 Del Method O2 Del Method O2 Flow Rate O2 Flow Rate 07/03/23 15:04 Room Air 07/03/23 13:33 Nasal Cannula 2 07/03/23 13:24 07/03/23 13:24 Nasal Cannula 2 07/03/23 08:29 Nasal Cannula 2 07/03/23 08:13 Nasal Cannula 2 07/03/23 07:03 07/03/23 06:58 96 Nasal Cannula 2 07/03/23 06:00 Nasal Cannula 2 07/03/23 05:00 07/03/23 04:00 Laboratory Results Abnormal lab results 07/02/23 07/02/2324 Range/Units 18:25 22:15 22:42 RBC 3.32 L (4.70-6.10) M/uL Hgb 9.8 L 9.4 L (14.0-18.0) g/dl Hct 28.2 L 27.2 L (42.0-52.0) % RDW Std Deviation (36.4-46.3) fL Neut # (Auto) 7.60 H (1.40-6.50) K/uL Lymph # (Auto) 0.61 L (1.20-3.40) K/uL [place] # (Auto) 1.19 H (0.11-0.59) K/uL Sodium 132 L (136-145) mmol/L Glucose 108 H (70-99(Fasting)) mg/dl Total Bilirubin 1.3 H (0.2-1.0) mg/dl Urine Protein Trace H (Negative) Urine Ketones Trace H (Negative) U Epithel Cells (Auto) 10-20 H (0-5) /lpf 07/02/23 07/03/23 Range/Units 23:44 03:05 RBC 3.28 L (4.70-6.10) M/uL Hgb 9.7 L (14.0-18.0) g/dl Hct 28.9 L (42.0-52.0) % RDW Std Deviation 46.4 H (36.4-46.3) fL Neut # (Auto) (1.40-6.50) K/uL Lymph # (Auto) 0.39 L (1.20-3.40) K/uL [place] # (Auto) 1.09 H (0.11-0.59) K/uL Sodium 131 L 131 L (136-145) mmol/L Glucose (70-99(Fasting)) mg/dl Total Bilirubin (0.2-1.0) mg/dl Urine Protein (Negative) Urine Ketones (Negative) U Epithel Cells (Auto) (0-5) /lpf Diagnostic Findings CT head - unremarkable (1) Dementia Dementia behavioral or psychological symptom: unspecified whether behavioral, psychotic, or mood disturbance or anxiety Dementia severity: unspecified severity Dementia type: unspecified type Qualified Code(s): F03.90 - Unspecified dementia, unspecified severity, without behavioral disturbance, psychotic disturbance, mood disturbance, and anxiety
--- NOTE | 2023-07-03 23:42 | Electroencephalogram ---
EEG Procedure Note Date of Service July 03, 2023 Start / End Times Start Time: 06:23 End Time: 06:44 Referring Physician Hitesh London History A 87 yo M with involuntary movements. EEG performed for evaluation of epilepiform acitvity. Home Medication List Medication Instructions Recorded Confirmed Type nitroglycerin 0.4 mg sublingual 0.4 mg sublingual DIRECTED PRN 06/09/18 07/02/23 History tablet (Nitrostat) Chest Pain atorvastatin 80 mg tablet 80 mg PO QAM #30 tabs 02/07/21 07/02/23 Rx famotidine 20 mg tablet 20 mg PO DAILY PRN Heartburn 03/01/23 07/02/23 History sodium chloride 1,000 mg soluble 1,000 mg PO QAM 03/01/23 07/02/23 History tablet aspirin 81 mg tablet,delayed 81 mg PO QAM #30 tabs 06/03/23 07/02/23 Rx release amlodipine 2.5 mg tablet 2.5 mg PO QAM 07/02/23 07/02/23 History metoprolol succinate 25 mg 12.5 mg PO QAM 07/02/23 07/02/23 History tablet,extended release 24 hr (Toprol XL) multivitamin 1 tab PO QAM 07/02/23 07/02/23 History pantoprazole 40 mg tablet,delayed 40 mg PO QAM 07/02/23 07/02/23 History release Inpatient Medication List Amlodipine Besylate (Amlodipine Besylate 5 Mg Tab) [facility] [place]: 08/02/23 08:59 Last Admin: 07/03/23 08:24 Dose: 2.5 mg Documented By: NA Atorvastatin Calcium (Atorvastatin 40 Mg Tab) 80 mg PO QAM [facility] Stop: 08/02/23 08:59 Last Admin: 07/03/23 08:25 Dose: 80 mg Documented By: NA Metoprolol Succinate (Metoprolol Succ 25mg Ext Rel Tab) 12.5 mg PO QAM [facility] Stop: 08/02/23 08:59 Last Admin: 07/03/23 08:24 Dose: 12.5 mg Documented By: NA Multivitamins (Multivitamin Tab) 1 [facility] [place] Stop: 08/02/23 08:59 Last Admin: 07/03/23 08:24 Dose: 1 tab Documented By: NA Pantoprazole Sodium (Pantoprazole 40 Mg Tab) 40 mg PO QAM [facility] Stop: 08/02/23 08:59 Last Admin: 07/03/23 08:24 Dose: 40 mg Documented By: NA Discontinued Medications Sodium Chloride (Nss) 1,000 mls @ 999 mls/hr IV .Q1H1M ONE Stop: 07/02/23 19:22 Last Infusion: 07/02/23 21:02 Dose: Infused Documented By: Admin: 07/02/23 18:50 Dose: 999 mls/hr Documented By: LMM Potassium Chloride/Sodium Chloride (Normal Saline W/20 Meq Kcl) 20 meq in 1,000 mls @ 75 mls/hr IV .[id number] ONE; Protocol Stop: 07/03/23 21:34 Last Infusion: 07/03/23 23:11 Dose: Infused Documented By: Infusion: 07/03/23 20:36 Dose: 75 mls/hr Documented By: Admin: 07/03/23 09:51 Dose: 75 mls/hr Documented By: GALI Ioversol (Optiray 320 100ml) 92 ml IV ONCE ONE Stop: 07/02/23 21:02 Last Admin: 07/02/23 21:01 Dose: 92 ml Documented By: EDK Description This is a 21 electrode EEG with a single channel dedicated to limited EKG. The electrodes were placed in accordance with the International 10-20 system. REPORT: At the onset of the EEG the patient is drowsy. The background is continuous and symmetric. The background consist of an admixture of theta / delta activity. No stage II sleep transients are seen.. Interpretation IMPRESSION: This is an abnormal drowsy EEG due to generalized background slowing . No epileptiform acitvity is seen.
[2023-07-04 06:25] LABS: BUN Creatinine Ratio 15.3 (10-20); Calcium 8.7 mg/dl (8.6-10.3); Creatinine Clr Calc Pharmacy 50.6 ml/min; Est GFR (African American) 80.6 ml/min; Est GFR (Non-African American) 69.5 ml/min; Magnesium 1.9 mg/dl (1.7-2.4); Phosphorus 2.9 mg/dl (2.5-4.9); Potassium 3.9 mmol/L (3.5-5.1)
[2023-07-04 07:53] LABS: Hematocrit (blood only) 28.3 % (42.0-52.0); Hemoglobin 10.2 g/dl (14.0-18.0); Mean Corpuscular Hemoglobin 29.7 pg (25.0-34.0); Mean Corpuscular Volume 83.7 fL (80.0-100.0); Mean Platelet Volume 9.5 fL (9.4-12.4); Platelet Count 372 K/uL (130-400); RDW Coefficient of Variation 13.7 % (11.5-14.5); RDW Standard Deviation 41.1 fL (36.4-46.3); Red Blood Count 3.44 M/uL (4.70-6.10)
[2023-07-04] MEDS: CEROVITE ADV FORMULA TAB PO SCH (09:58)
[2023-07-04] MEDS: FOLIC ACID 1 MG TAB PO SCH (09:58)
[2023-07-04] MEDS: THIAMINE HCL 100 MG TAB PO SCH (09:58)
--- NOTE | 2023-07-04 10:22 | Palliative Care Consultation ---
Date of Consultation July 04, 2023 Assessment & Plan (1) Falls frequently: (2) Altered mental status: Altered mental status type: disorientation Qualified Code(s): R41.0 - Disorientation, unspecified (3) Generalized weakness: (4) Senile dementia: Likely vascular type given PMH (5) Palliative care by specialist: Met with pt. Provided overview of Palliative Medicine, a subspecialty that provi danny specialized medical care for people living with a serious illness by offering a focus on quality of life. Palliative Medicine is often conflated with hospice: I advised patient/family that Palliative and hospice can be partners but we are not the same. It is important to understand the difference so that we may be informed, and not afraid. Palliative Medicine works to improve QOL through reduction of symptom burden/more control over their illness, for both the patient and family. Palliative medicine clinicians are board certified, specially-trained and another member of the patient's medical care team. We often provide an extra layer of support because our care is based on the needs of the patient, not the prognosis; as such, it's appropriate at any age/advancing stage of a serious illness and can be provided along with curative treatment. Palliative Medicine clinicians are also trained in advanced communication methodologies, to facilitate complex discussions about advanced illness planning, which are needed to help assure that the treatment choices match the patient's goals, aka delivering Goal Concordant care. Finally, we discussed that hospice is a visiting nurse service that focuses on care delivered at the very end of life for patients with terminal illness, with life expectancy less than 6 month. Plan * Pt is able to answer some questions about pain/dyspnea but unable to follow lengthy discussion re symptoms, illness or prognosis. * He has progressive dementia with expected chronic decline from this incurable, progressive illness. Patient's care needs now exceed what daughter can do and she brought him to the ED for help with placement. * He will need dementia placement, care mgt to assist * Family meeting with daughter recommended. I will try to call this afternoon. Thank you for allowing us to participate in the ongoing care of this patient. Please don't hesitate to call or page with any additional concerns. Dr. Lucille Curtis [facility] Director, Palliative Care History of Present Illness Reason for Consultation: On 07/03/23 @ 17:49 Kathya Cardona Wrote To Lucille Curtis goals of care discussion Attending Physician: Kathya Cardona MD History of Present Illness Admitted 07/02/23 via ED for Generalized weakness, Dementia, Adult failure to thrive. He was brought to ED by his daughter who reported she can no longer care for the patient due to his weakness and poor oral intake. Fawad is seen bedside, no family is present He is confused but pleasant He cannot provide HPI PMH: dementia,CKD stage III; chronic hyponatremia; h/o COVID-19; cerebrovascular disease; TIA RUE weakness 02/23/20; GERD; DNR/DNI per pt's advance directives.; carotid artery disease; vision loss, left eye; thoracic aortic aneurysm; h/o cholelithiasis; dyslipidemia; CAD/2001-s/p PCI to LAD and plain old balloon angioplasty to the first diagonal; hx prior Gangrenous cholecystitis; HTN; Low grade B-cell lymphoma (DIAGNOSIS: Non-Hodgkins lymphoma, B-cell lymphoma favoring marginal zone, low grade, stage IA involving the right renal hilum; Status post completion of radiation therapy 01/06/2016 received 3000 cGy.) ED workup: CT head negative for acute findings and demonstrates chronic right frontal infarct. CT of the lumbar spine negative for acute traumatic findings. CT abdomen pelvis with question of small 3 cm retroperitoneal hematoma versus abnormal lymph node. Surgery consult obtained: Abdominal examination soft and benign. No surgical intervention required. EKG: No overt acute ischemia Chest x-ray negative for acute cardiopulmonary process with right perihilar density previously identified. Tele Neurology consult 07/03/[address] Apodaca: "Patient has known dementia, worsening with difficulty being cared for at home and admitted with a fall. Given his baseline function and exam today would be low yield to repeat the MRI that was already completed less than a month ago. 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 Would not otherwise pursue further neurologic workup. Discussed with Dr. Cardona. Please contact us with any further questions." Allergies Allergy/AdvReac Type Severity Reaction Status Date / Time No Known Allergies Allergy Unknown Verified 07/02/23 19:08 Home Medications Medication Instructions Recorded Confirmed Type nitroglycerin 0.4 mg sublingual 0.4 mg sublingual DIRECTED PRN 06/09/18 07/02/23 History tablet (Nitrostat) Chest Pain atorvastatin 80 mg tablet 80 mg PO QAM #30 tabs 02/07/21 07/02/23 Rx famotidine 20 mg tablet 20 mg PO DAILY PRN Heartburn 03/01/23 07/02/23 History sodium chloride 1,000 mg soluble 1,000 mg PO QAM 03/01/23 07/02/23 History tablet aspirin 81 mg tablet,delayed 81 mg PO QAM #30 tabs 06/03/23 07/02/23 Rx release amlodipine 2.5 mg tablet 2.5 mg PO QAM 07/02/23 07/02/23 History metoprolol succinate 25 mg 12.5 mg PO QAM 07/02/23 07/02/23 History tablet,extended release 24 hr (Toprol XL) multivitamin 1 tab PO QAM 07/02/23 07/02/23 History pantoprazole 40 mg tablet,delayed 40 mg PO QAM 07/02/23 07/02/23 History release Patient History Medical History (Updated 07/04/23 @ 10:26 by Lucille Curtis DNP) Palliative care by specialist Discussion about advance care planning held with family member Altered mental status Senile dementia Falls frequently CKD (chronic kidney disease), stage III Chronic hyponatremia History of COVID-19 Cerebrovascular disease TIA RUE weakness 02/23/20 GERD (gastroesophageal reflux disease) Do not resuscitate status Per pt's advance directives. 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 Brunner Status post coronary artery stent placement Family History Mother Heart disease Father Myocardial infarction Sister Cancer ? 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 [employer] Required: No Beliefs That Will Affect Care: None marital status: / Current Living Situation: Family Current Living Situation Comment: Help from daughter current occupational status: retired How many Children do You have: 2 Other Information That Helps Us Care for You: No Feels Safe at Home: Yes Safety Concerns: Feels Safe At This Time Assistive Devices: Walker Review of Systems Review of Systems: Unobtainable due to cognitive status Physical Exam Constitutional: + thin, + frail appearing and + underwei ght Eyes: PERRL, conjunctivae normal, anicteric sclerae ENMT: dentition fair, MM sl dry Neck: trachea midline, no thyromegaly Respiratory: normal respiratory effort, able to speak in complete sentences and symmetric chest movement Auscultation: lungs clear to auscultation bilaterally and + diminished lung sounds Cardiovascular: RRR, no murmur, no edema Gastrointestinal (Abdomen): normal bowel sounds, soft, nontender, no hepatosplenomegaly Musculoskeletal: BLE strength intact, moving well and can follow some simple commands Skin: pale, warm Neurologic: confused at baseline follows simple commands about 50% of the time disorganized thinking, forgetful Results & Data Vital Signs (Past 12 Hours) Vital Signs Temp Pulse Pulse Resp BP BP Pulse Ox 07/04/23 08:21 07/04/23 07:49 36.9 C 75 18 152/86 H 95 07/04/23 07:00 69 07/04/23 03:25 36.8 C 74 18 165/96 H 93 07/03/23 22:45 37.1 C 65 16 187/92 H 97 07/03/23 22:39 63 O2 Del Method 07/04/23 08:21 Room Air 07/04/23 07:49 Room Air 07/04/23 07:00 07/04/23 03:25 Room Air 07/03/23 22:45 Room Air 07/03/23 22:39 Laboratory Results data reviewed, see HPI Diagnostic Findings data reviewed, see HPI PG Care Time/CCT Total # of Minutes Spent Total Time Spent with Patient: Total time spent is greater than 50% in coordination of care (as documented) at patient's floor/unit and/or counseling patient: I spent 60 minutes overall addressing this case: 15 min in medical data review/discussion with referring provider(s) and/or preparation for the visit 20 min in direct interaction with the patient/exam 000 min in Advance Care Planning/Goals of Care discussions as detailed above in note (must be >16min) 10 min in subsequent review and synthesis of assessment and plan 15 min communicating with other providers regarding the patient's case: [place] [address] IN/OBS CONSULT LVL 4,60M Patient Type New History Comprehensive Exam Comprehensive Medical Decision Making Moderate Complexity Diagnoses Falls frequently R29.6 Disorientation R41.0 Altered mental status type: disorientation Generalized weakness R53.1 Senile dementia F03.90 Palliative care by specialist Z51.5
[2023-07-04] MEDS: SODIUM CHLORIDE 1 GM TABLET PO SCH (11:34)
--- NOTE | 2023-07-04 15:52 | Hospitalist Progress Note ---
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 Sustained some back pain and bruising from falling. No head trauma. Today the patient with increasing weakness and sleepiness and unable to get from bed on the day of arrival. No home narcotic medication as per daughter. Patient's daughter feels she cannot care for her father anymore given advancing dementia. He was brought to the ER for evaluation. He is being managed for the following: Advancing dementia Rule out seizure given myoclonic jerks: Noted at the ED. Mechanical fall Retroperitoneal hematoma Likely metabolic encephalopathy: noted to be obtunded at presentation. Patient coming in with inability of being taken care of at home and fall. Admitting labs: Hemoglobin slightly low at 9.4 at presentation, WBC WNL, VBG WNL, electrolytes at his baseline, LFT WNL, UA not suggestive of UTI Admitting imagings: CXR with no new acute findings. CT head with no new acute intracranial abnormality. Lumbar spine CT with no new acute fracture. Advanced degenerative spondylosis noted. Abdomen pelvis CT with a small left retroperitoneal hematoma 3 x 1.5 cm. EEG: abn drowsy EEG d/t generalized background slowing. No epileptiform activity is seen. Follow-up repeat CT scan in 3 months time to evaluate for resolution. Aspirin on hold. Fall precaution. PT/OT. Neuro consult, appreciate recs General surgery consult Re: Traumatic retroperitoneal bleed - repeat ct abd/pelvis in 3 months Repeat imaging if HnH drops or hemodynamic instability. H&H has been stable. Acute on chr anemia: baseline Hb around 11, Hb at presentation 9.8. aspirin on hold, monitor HnH. Follow H&H, transfuse PRBC if hemoglobin less than 8 and or for symptomatic anemia. H&H has been stable. Other chronic medical conditions: Continue with/resume home meds as and when able. History CAD sp stenting, history PVD, CVA - aspirin on hold. Valvular heart disease (mild MR/TR/AR/, TTE 2022) HTN, c/t monitor, use prn meds if needed. Hyperlipidemia on statin Rx history non-Hodgkin's lymphoma status post radiation (patient refused chemotherapy in the past as per records), patient currently seeing 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 Prediabetes Dementia, baseline confusion as per daughter. past tobacco abuse Pulmonary mass, h/o. f/u pulm and onco as prior. Social service re: discharge planning, possible placement DVT prophylaxis. SCDs Re: Retroperitoneal bleed DNR/DNI Patient daughter Ms. Teressa Chavira, contact #[phone]. Text document was generated using [employer] voice recognition software. It may contain grammatical or spelling errors. Kindly contact undersigned for clarification of any documentation item in question. Admission and Anticipated Discharge Date Admission Date: July 02, 2023 Subjective Patient seen and examined at bedside. Patient was lying in bed, on RA, NAD, resting comfortably, very hard of hearing, ROS not able in detail, denies cough or pain. Appears more alert today. Pt's dtr and brother by bedside, they were also updated on plan of care. Physical Exam Physical Exam: GENERAL: lethargic, [place], Orientation x 1-2. NAD, on RA. Old/frail/weak appearing HEENT: No pallor, no icterus. Pupils equal, round and reactive to light. Oral mucosa dry. Left eye with scarring [chronic left eye blindness] NECK: No JVD, no neck masses. HEART: S1 and S2 heard. Regular rate and rhythm. + murmur, no gallop. RESPIRATORY SYSTEM: Normal AP diameter. No accessory muscle use. No wheezing, no crackles. ABDOMEN: Soft, bowel sounds present, nontender, no distention. CENTRAL NERVOUS SYSTEM: No facial droop. Obeys simple commands. Moves extremities. Power bilaterally symmetric EXTREMITIES: No edema, no erythema seen. Results & Data Results & Data Vital Signs (Past 12 Hours) Vital Signs Temp Pulse Pulse Resp BP BP Pulse Ox 07/04/23 15:12 36.5 C 95 H 18 133/71 92 07/04/23 11:12 36.5 C 77 16 138/88 97 07/04/23 08:21 07/04/23 07:49 36.9 C 75 18 152/86 H 95 07/04/23 07:00 69 O2 Del Method 07/04/23 15:12 Room Air 07/04/23 11:12 Room Air 07/04/23 08:21 Room Air 07/04/23 07:49 Room Air 07/04/23 07:00
[2023-07-05 06:43] LABS: Hematocrit (blood only) 29.4 % (42.0-52.0); Hemoglobin 10.6 g/dl (14.0-18.0)
[2023-07-05 07:03] LABS: Creatinine Clr Calc Pharmacy 52.7 ml/min; Est GFR (African American) 84.7 ml/min; Est GFR (Non-African American) 73.1 ml/min; Potassium 3.6 mmol/L (3.5-5.1)
--- NOTE | 2023-07-05 14:53 | Hospitalist Progress Note ---
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 Sustained some back pain and bruising from falling. No head trauma. Today the patient with increasing weakness and sleepiness and unable to get from bed on the day of arrival. No home narcotic medication as per daughter. Patient's daughter feels she cannot care for her father anymore given advancing dementia. He was brought to the ER for evaluation. He is being managed for the following: Advancing dementia Rule out seizure given myoclonic jerks: Noted at the ED. Mechanical fall Retroperitoneal hematoma Likely metabolic encephalopathy: noted to be obtunded at presentation. Patient coming in with inability of being taken care of at home and fall. Admitting labs: Hemoglobin slightly low at 9.4 at presentation, WBC WNL, VBG WNL, electrolytes at his baseline, LFT WNL, UA not suggestive of UTI Admitting imagings: CXR with no new acute findings. CT head with no new acute intracranial abnormality. Lumbar spine CT with no new acute fracture. Advanced degenerative spondylosis noted. Abdomen pelvis CT with a small left retroperitoneal hematoma 3 x 1.5 cm. EEG: abn drowsy EEG d/t generalized background slowing. No epileptiform activity is seen. Follow-up repeat CT scan in 3 months time to evaluate for resolution. Aspirin on hold. Fall precaution. PT/OT. Neuro consult, appreciate recs General surgery consult Re: Traumatic retroperitoneal bleed - repeat ct abd/pelvis in 3 months Repeat imaging if HnH drops or hemodynamic instability. H&H has been stable. Acute on chr anemia: baseline Hb around 11, Hb at presentation 9.8. aspirin on hold, monitor HnH. Follow H&H, transfuse PRBC if hemoglobin less than 8 and or for symptomatic anemia. H&H has been stable. Other chronic medical conditions: Continue with/resume home meds as and when able. History CAD sp stenting, history PVD, CVA - aspirin on hold. Valvular heart disease (mild MR/TR/AR/, TTE 2022) HTN, c/t monitor, use prn meds if needed. 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 Prediabetes Dementia, baseline confusion as per daughter. past tobacco abuse Pulmonary mass, h/o. f/u pulm and onco as prior. Social service re: discharge planning, possible placement DVT prophylaxis. SCDs Re: Retroperitoneal bleed DNR/DNI Patient daughter Ms. Teressa Chavira, contact #[phone]. Text document was generated using [employer] voice recognition software. It may contain grammatical or spelling errors. Kindly contact undersigned for clarification of any documentation item in question. Admission and Anticipated Discharge Date Admission Date: July 02, 2023 Subjective Patient seen and examined at bedside. Patient was sitting up in chair, on RA, NAD, resting comfortably, very hard of hearing, ROS not able in detail, denies pain. Eating his breakfast. Physical Exam Physical Exam: GENERAL: lethargic, [place], Orientation x 1-2. NAD, on RA. Old/frail/weak appearing HEENT: No pallor, no icterus. Pupils equal, round and reactive to light. Oral mucosa dry. Left eye with scarring [chronic left eye blindness] NECK: No JVD, no neck masses. HEART: S1 and S2 heard. Regular rate and rhythm. + murmur, no gallop. RESPIRATORY SYSTEM: Normal AP diameter. No accessory muscle use. No wheezing, no crackles. ABDOMEN: Soft, bowel sounds present, nontender, no distention. CENTRAL NERVOUS SYSTEM: No facial droop. Obeys simple commands. Moves extremities. Power bilaterally symmetric EXTREMITIES: No edema, no erythema seen. Results & Data Results & Data Vital Signs (Past 12 Hours) Vital Signs Temp Pulse Pulse Pulse Resp BP Pulse Ox 07/05/23 11:45 36.6 C 83 14 128/64 95 07/05/23 08:15 36.5 C 74 15 148/72 H 97 07/05/23 07:59 03/27/24 07:00 73 07/05/23 03:54 36.6 C 98 H 17 165/90 H 98 O2 Del Method 07/05/23 11:45 Room Air 07/05/23 08:15 Room Air 07/05/23 07:59 Room Air 07/05/23 07:00 07/05/23 03:54 Room Air
[2023-07-06 06:28] LABS: BUN Creatinine Ratio 17.4 (10-20); Calcium 8.9 mg/dl (8.6-10.3); Creatinine Clr Calc Pharmacy 42.9 ml/min; Est GFR (African American) 70.9 ml/min; Est GFR (Non-African American) 61.1 ml/min; Potassium 3.9 mmol/L (3.5-5.1)
[2023-07-06 06:30] LABS: Hematocrit (blood only) 29.9 % (42.0-52.0); Hemoglobin 10.4 g/dl (14.0-18.0)
[2023-07-06 07:19] LABS: Magnesium 1.9 mg/dl (1.7-2.4)
[2023-07-06] MEDS: FAMOTIDINE 20 MG TAB PO PRN (10:13)
--- NOTE | 2023-07-06 13:20 | Hospitalist Progress Note ---
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 Sustained some back pain and bruising from falling. No head trauma. Today the patient with increasing weakness and sleepiness and unable to get from bed on the day of arrival. No home narcotic medication as per daughter. Patient's daughter feels she cannot care for her father anymore given advancing dementia. He was brought to the ER for evaluation. He is being managed for the following: Advancing dementia Inability to take care at home due to advanced dementia No acute delirium Rule out seizure given myoclonic jerks: Noted at the ED. No more episodes of myoclonic jerks EEG: abn drowsy EEG d/t generalized background slowing. No epileptiform activity is seen. Remains medically stable Neuro consult, appreciate recs Mechanical fall Retroperitoneal hematoma General surgery consult Re: Traumatic retroperitoneal bleed - repeat ct abd/pelvis in 3 months Repeat imaging if HnH drops or hemodynamic instability. H&H has been stable. Will need PT and OT evaluation and placement in a memory care unit Likely metabolic encephalopathy: noted to be obtunded at presentation. No signs and or symptoms of infection CT scans remained unremarkable as mentioned below Patient coming in with inability of being taken care of at home and fall. Admitting labs: Hemoglobin slightly low at 9.4 at presentation, WBC WNL, VBG WNL, electrolytes at his baseline, LFT WNL, UA not suggestive of UTI Admitting imagings: CXR with no new acute findings. CT head with no new acute intracranial abnormality. Lumbar spine CT with no new acute fracture. Advanced degenerative spondylosis noted. Abdomen pelvis CT with a small left retroperitoneal hematoma 3 x 1.5 cm. Follow-up repeat CT scan in 3 months time to evaluate for resolution. Aspirin on hold. Fall precaution. PT/OT. Acute on chr anemia: baseline Hb around 11, Hb at presentation 9.8. aspirin on hold, monitor HnH. Follow H&H, transfuse PRBC if hemoglobin less than 8 and or for symptomatic anemia. H&H has been stable. Other chronic medical conditions: Continue with/resume home meds as and when able. History CAD sp stenting, history PVD, CVA - aspirin on hold. Valvular heart disease (mild MR/TR/AR/, TTE 2022) HTN, c/t monitor, use prn meds if needed. 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 Prediabetes Dementia, baseline confusion as per daughter. past tobacco abuse Pulmonary mass, h/o. f/u pulm and onco as prior. Social service re: discharge planning, possible placement DVT prophylaxis. SCDs Re: Retroperitoneal bleed DNR/DNI Patient daughter Ms. Teressa Chavira, contact #[phone]. Text document was generated using [employer] voice recognition software. It may contain grammatical or spelling errors. Kindly contact undersigned for clarification of any documentation item in question. Admission and Anticipated Discharge Date Admission Date: July 02, 2023 Subjective 07/06/2023 The patient was seen and examined in medical telemetry unit He remains stable and remains minimally communicative Denies any symptoms and not in any distress Review of Systems Review of Systems: Unobtainable due to cognitive status Physical Exam Physical Exam: Lying in bed comfortably Constitutional: + ill appearing and average body habitus Eyes: PERRL, conjunctivae normal, anicteric sclerae ENMT: external ear and nose normal, oropharynx normal Neck: trachea midline, no thyromegaly Respiratory: no respiratory distress Auscultation: lungs clear to auscultation bilaterally Cardiovascular: Rate/Rhythm: regular rate, regular rhythm and + tachycardic Heart Sounds: normal S1, normal S2 and + murmur Extremities: no edema Gastrointestinal (Abdomen): Inspection/Auscultation: normal bowel sounds; abdomen not distended Percussion/Palpation: + abdomen tender and abdomen soft Musculoskeletal: No acute arthritis involving any of the joint Neurologic: normal touch/pain/proprioception and moves all extremities; no focal motor deficits Lymphatic: no cervical or axillary lymphadenopathy Results & Data Results & Data Vital Signs (Past 12 Hours) Vital Signs Temp Pulse Pulse Resp BP BP Pulse Ox 07/06/23 11:29 36.7 C 104 H 18 144/90 H 92 07/06/23 06:35 68 07/06/23 06:14 71 20 132/74 97 07/06/23 04:00 36.9 C 73 18 142/82 H 93 O2 Del Method 07/06/23 11:29 Room Air 07/06/23 06:35 07/06/23 06:14 Room Air 07/06/23 04:00 Room Air Laboratory Results Short CBC 07/06/23 Range/Units 05:33 Hgb 10.4 L (14.0-18.0) g/dl Hct 29.9 L (42.0-52.0) % BMP 07/06/23 05:33 Sodium 130 L Potassium 3.9 Chloride 97 L Carbon Dioxide 25 BUN 19 Creatinine 1.09 Glucose 105 H Calcium 8.9 Medications Administered Current Inpatient Medications Acetaminophen (Acetaminophen 325 Mg Tab) 650 mg PO Q4H PRN PRN Reason: Pain or Fever Stop: 08/01/23 23:13 Amlodipine Besylate (Amlodipine Besylate 5 Mg Tab) 2.5 mg PO [facility] Stop: 08/02/23 08:59 Last Admin: 07/06/23 10:12 Dose: 2.5 mg Atorvastatin Calcium (Atorvastatin 40 Mg Tab) 80 mg PO [facility] Stop: 08/02/23 08:59 Last Admin: 07/06/23 10:13 Dose: 80 mg Famotidine (Famotidine 20 Mg Tab) 20 mg PO DAILY PRN PRN Reason: Heartburn Stop: 08/01/23 23:13 Last Admin: 07/06/23 10:13 Dose: 20 mg Folic Acid (Folic Acid 1 Mg Tab) [facility] [place] Stop: 08/03/23 08:59 Last Admin: 07/06/23 10:13 Dose: 1 mg Promethazine HCl 6.25 mg/ (Sodium Chloride) 50.25 mls @ 201 mls/hr IV Q6H PRN PRN Reason: Nausea And Vomiting Stop: 08/01/23 23:01 Lorazepam 1 mg/ Syringe 1 mls @ 2 mls/min IV Q10M PRN PRN Reason: seizures Stop: 08/02/23 05:53 Metoprolol Succinate (Metoprolol Succ 25mg Ext Rel Tab) 12.5 [facility] [place] Stop: 08/02/23 08:59 Last Admin: 07/06/23 10:12 Dose: 12.5 mg Multivitamins/Minerals (Cerovite Adv Formula Tab) 1 tab [facility] [place] Stop: 08/03/23 08:59 Last Admin: 07/06/23 10:12 Dose: 1 tab Pantoprazole Sodium (Pantoprazole 40 Mg Tab) 40 mg PO [facility] Stop: 08/02/23 08:59 Last Admin: 07/06/23 10:13 Dose: 40 mg Sodium Chloride (Sodium Chloride 1 Gm Tablet) 1 gm PO [facility] Stop: 08/03/23 08:59 Last Admin: 07/06/23 10:14 Dose: 1 gm Thiamine HCl (Thiamine Hcl 100 Mg Tab) 100 mg PO [facility] Stop: 08/03/23 08:59 Last Admin: 07/06/23 10:14 Dose: 100 mg
--- NOTE | 2023-07-07 16:34 | Hospitalist Progress Note ---
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 Sustained some back pain and bruising from falling. No head trauma. Today the patient with increasing weakness and sleepiness and unable to get from bed on the day of arrival. No home narcotic medication as per daughter. Patient's daughter feels she cannot care for her father anymore given advancing dementia. He was brought to the ER for evaluation. He is being managed for the following: Advancing dementia Inability to take care at home due to advanced dementia No acute delirium Remains stable to be transferred Rule out seizure given myoclonic jerks: Noted at the ED. No more episodes of myoclonic jerks EEG: abn drowsy EEG d/t generalized background slowing. No epileptiform activity is seen. Remains medically stable Neuro consult, appreciate recs Mechanical fall Retroperitoneal hematoma General surgery consult Re: Traumatic retroperitoneal bleed - repeat ct abd/pelvis in 3 months Repeat imaging if HnH drops or hemodynamic instability. H&H has been stable. Will need PT and OT evaluation and placement in a memory care unit Awaiting placement Will need [address] of the abdomen to make sure hematoma is resolved Likely metabolic encephalopathy: noted to be obtunded at presentation. No signs and or symptoms of infection CT scans remained unremarkable as mentioned below Back to his baseline Patient coming in with inability of being taken care of at home and fall. Admitting labs: Hemoglobin slightly low at 9.4 at presentation, WBC WNL, VBG WNL, electrolytes at his baseline, LFT WNL, UA not suggestive of UTI Admitting imagings: CXR with no new acute findings. CT head with no new acute intracranial abnormality. Lumbar spine CT with no new acute fracture. Advanced degenerative spondylosis noted. Abdomen pelvis CT with a small left retroperitoneal hematoma 3 x 1.5 cm. Follow-up repeat CT scan in 3 months time to evaluate for resolution. Aspirin on hold. Fall precaution. PT/OT. Acute on chr anemia: baseline Hb around 11, Hb at presentation 9.8. aspirin on hold, monitor HnH. Follow H&H, transfuse PRBC if hemoglobin less than 8 and or for symptomatic anemia. H&H has been stable. Other chronic medical conditions: Continue with/resume home meds as and when able. History CAD sp stenting, history PVD, CVA - aspirin on hold. Valvular heart disease (mild MR/TR/AR/, TTE 2022) HTN, c/t monitor, use prn meds if needed. 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 Prediabetes Dementia, baseline confusion as per daughter. past tobacco abuse Pulmonary mass, h/o. f/u pulm and onco as prior. Social service re: discharge planning, possible placement DVT prophylaxis. SCDs Re: Retroperitoneal bleed DNR/DNI Patient daughter Ms. Teressa Chavira, contact #[phone]. Text document was generated using [employer] voice recognition software. It may contain grammatical or spelling errors. Kindly contact undersigned for clarification of any documentation item in question. Discussed with the patient in detail Discussed with the family members and answered all of their questions He will be discharged whenever he is approved to go to a facility Admission and Anticipated Discharge Date Admission Date: July 02, 2023 Subjective 07/06/2023 The patient was seen and examined in medical telemetry unit He remains stable and remains minimally communicative Denies any symptoms and not in any distress 07/07/2023 The patient was seen and examined in medical telemetry unit in presence of the family members He remains stable without any acute confusion Discussed with the family members in detail and answered all of their questions He has been waiting to be transferred to a facility Review of Systems Review of Systems: Could not be obtained secondary to dementia state Physical Exam Physical Exam: Lying in bed comfortably Constitutional: + ill appearing and average body habitus Eyes: PERRL, conjunctivae normal, anicteric sclerae ENMT: external ear and nose normal, oropharynx normal Neck: trachea midline, no thyromegaly Respiratory: no respiratory distress Auscultation: lungs clear to auscultation bilaterally Cardiovascular: Rate/Rhythm: regular rate, regular rhythm and + tachycardic Heart Sounds: normal S1, normal S2 and + murmur Extremities: no edema Gastrointestinal (Abdomen): Inspection/Auscultation: normal bowel sounds; abdomen not distended Percussion/Palpation: + abdomen tender and abdomen soft Musculoskeletal: No acute arthritis involving any of the joint Neurologic: normal touch/pain/proprioception and moves all extremities; no focal motor deficits Lymphatic: no cervical or axillary lymphadenopathy Results & Data Results & Data Vital Signs (Past 12 Hours) Vital Signs Temp Pulse Pulse Resp BP BP Pulse Ox 07/07/23 16:11 36.3 C L 77 16 113/63 95 07/07/23 15:31 79 07/07/23 09:15 07/07/23 09:11 78 18 101/67 93 07/07/23 07:37 68 O2 Del Method 07/07/23 16:11 Room Air 07/07/23 15:31 07/07/23 09:15 Room Air 07/07/23 09:11 Room Air 07/07/23 07:37 Medications Administered Current Inpatient Medications Acetaminophen (Acetaminophen 325 Mg Tab) 650 mg PO Q4H PRN PRN Reason: Pain or Fever Stop: 08/01/23 23:13 Amlodipine Besylate (Amlodipine Besylate 5 Mg Tab) 2.5 mg PO [facility] Stop: 08/02/23 08:59 Last Admin: 07/07/23 09:14 Dose: 2.5 mg Atorvastatin Calcium (Atorvastatin 40 Mg Tab) 80 mg PO [facility] Stop: 08/02/23 08:59 Last Admin: 07/07/23 09:07 Dose: 80 mg Famotidine (Famotidine 20 Mg Tab) 20 mg PO DAILY PRN PRN Reason: Heartburn Stop: 08/01/23 23:13 Last Admin: 07/06/23 10:13 Dose: 20 mg Folic Acid (Folic Acid 1 Mg Tab) [facility] [place] Stop: 08/03/23 08:59 Last Admin: 07/07/23 09:07 Dose: 1 mg Promethazine HCl 6.25 mg/ (Sodium Chloride) 50.25 mls @ 201 mls/hr IV Q6H PRN PRN Reason: Nausea And Vomiting Stop: 08/01/23 23:01 Lorazepam 1 mg/ Syringe 1 mls @ 2 mls/min IV Q10M PRN PRN Reason: seizures Stop: 08/02/23 05:53 Metoprolol Succinate (Metoprolol Succ 25mg Ext Rel Tab) 12.5 mg PO [facility] Stop: 08/02/23 08:59 Last Admin: 07/07/23 09:14 Dose: 12.5 mg Multivitamins/Minerals (Cerovite Adv Formula Tab) 1 tab PO [facility] Stop: 08/03/23 08:59 Last Admin: 07/07/23 09:07 Dose: 1 tab Pantoprazole Sodium (Pantoprazole 40 Mg Tab) 40 mg PO [facility] Stop: 08/02/23 08:59 Last Admin: 07/07/23 09:07 Dose: 40 mg Sodium Chloride (Sodium Chloride 1 Gm Tablet) 1 gm PO [facility] Stop: 08/03/23 08:59 Last Admin: 07/07/23 09:07 Dose: 1 gm Thiamine HCl (Thiamine Hcl 100 Mg Tab) 100 mg PO [facility] Stop: 08/03/23 08:59 Last Admin: 07/07/23 09:08 Dose: 100 mg
[2023-07-07] MEDS: OLANZapine 5 MG TABLET PO STA (19:59)
[2023-07-08 06:53] LABS: Basophils # (auto) 0.06 K/uL (0.00-0.20); Basophils % (auto) 0.5 %; Eosinophils # (auto) 0.31 K/uL (0.00-0.50); Eosinophils % (auto) 2.7 %; Hematocrit (blood only) 31.5 % (42.0-52.0); Hemoglobin 10.8 g/dl (14.0-18.0); Immature Granulocytes # (auto) 0.07 K/uL (0.01-0.20); Immature Granulocytes % (auto) 0.6 %; Lymphocytes # (auto) 0.95 K/uL (1.20-3.40); Lymphocytes % (auto) 8.4 %; Mean Corpuscular Hemoglobin 28.9 pg (25.0-34.0); Mean Corpuscular Hgb Conc 34.3 g/dL (32.0-36.0); Mean Corpuscular Volume 84.2 fL (80.0-100.0); Mean Platelet Volume 9.8 fL (9.4-12.4); Monocytes # (auto) 1.42 K/uL (0.11-0.59); Monocytes % (auto) 12.6 %; Neutrophils # (auto) 8.49 K/uL (1.40-6.50); Neutrophils % (auto) 75.2 %; Platelet Count 497 K/uL (130-400); RDW Coefficient of Variation 13.8 % (11.5-14.5); RDW Standard Deviation 42.6 fL (36.4-46.3); Red Blood Count 3.74 M/uL (4.70-6.10)
[2023-07-08] MEDS: OLANZapine 5 MG TABLET PO PRN (11:29)
--- NOTE | 2023-07-08 14:29 | Hospitalist Progress Note ---
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 Sustained some back pain and bruising from falling. No head trauma. Today the patient with increasing weakness and sleepiness and unable to get from bed on the day of arrival. No home narcotic medication as per daughter. Patient's daughter feels she cannot care for her father anymore given advancing dementia. He was brought to the ER for evaluation. He is being managed for the following: Advancing dementia Inability to take care at home due to advanced dementia No acute delirium Remains stable to be transferred Has had agitation last night and required oral Zyprexa Seems to be better this morning and will continue with oral Zyprexa as needed twice daily Rule out seizure given myoclonic jerks: Noted at the ED. No more episodes of myoclonic jerks EEG: abn drowsy EEG d/t generalized background slowing. No epileptiform activity is seen. Remains medically stable Neuro consult, appreciate recs Remains stable without any myoclonus Mechanical fall Retroperitoneal hematoma General surgery consult Re: Traumatic retroperitoneal bleed - repeat ct abd/pelvis in 3 months Repeat imaging if HnH drops or hemodynamic instability. H&H has been stable. Will need PT and OT evaluation and placement in a memory care unit Awaiting placement Will need [address] of the abdomen to make sure hematoma is resolved Awaiting placement Likely metabolic encephalopathy: noted to be obtunded at presentation. No signs and or symptoms of infection CT scans remained unremarkable as mentioned below Back to his baseline Patient coming in with inability of being taken care of at home and fall. Admitting labs: Hemoglobin slightly low at 9.4 at presentation, WBC WNL, VBG WNL, electrolytes at his baseline, LFT WNL, UA not suggestive of UTI Admitting imagings: CXR with no new acute findings. CT head with no new acute intracranial abnormality. Lumbar spine CT with no new acute fracture. Advanced degenerative spondylosis noted. Abdomen pelvis CT with a small left retroperitoneal hematoma 3 x 1.5 cm. Follow-up repeat CT scan in 3 months time to evaluate for resolution. Aspirin on hold. Fall precaution. PT/OT. Acute on chr anemia: baseline Hb around 11, Hb at presentation 9.8. aspirin on hold, monitor HnH. Follow H&H, transfuse PRBC if hemoglobin less than 8 and or for symptomatic anemia. H&H has been stable. Other chronic medical conditions: Continue with/resume home meds as and when able. History CAD sp stenting, history PVD, CVA - aspirin on hold. Valvular heart disease (mild MR/TR/AR/, TTE 2022) HTN, c/t monitor, use prn meds if needed. 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 Prediabetes Dementia, baseline confusion as per daughter. past tobacco abuse Pulmonary mass, h/o. f/u pulm and onco as prior. Social service re: discharge planning, possible placement DVT prophylaxis. SCDs Re: Retroperitoneal bleed DNR/DNI Patient daughter Ms. Teressa Chavira, contact #[phone]. Text document was generated using [employer] voice recognition software. It may contain grammatical or spelling errors. Kindly contact undersigned for clarification of any documentation item in question. Discussed with the patient in detail Discussed with the family members and answered all of their questions He will be discharged whenever he is approved to go to a facility Discussed with the family members in detail on 07/07/2023 and answered all of their questions Admission and Anticipated Discharge Date Admission Date: July 02, 2023 Subjective 07/06/2023 The patient was seen and examined in medical telemetry unit He remains stable and remains minimally communicative Denies any symptoms and not in any distress 07/07/2023 The patient was seen and examined in medical telemetry unit in presence of the family members He remains stable without any acute confusion Discussed with the family members in detail and answered all of their questions He has been waiting to be transferred to a facility 07/08/2023 The patient was seen and examined in medical telemetry unit He has been coming in and out of bed quite frequently and required oral Zyprexa last night He has been feeling better this morning but is still is pleasantly confused Oral Zyprexa has been ordered as needed Review of Systems Review of Systems: Could not be obtained secondary to dementia state Physical Exam Physical Exam: Lying in bed comfortably Constitutional: + ill appearing and average body habitus Eyes: PERRL, conjunctivae normal, anicteric sclerae ENMT: external ear and nose normal, oropharynx normal Neck: trachea midline, no thyromegaly Respiratory: no respiratory distress Auscultation: lungs clear to auscultation bilaterally Cardiovascular: Rate/Rhythm: regular rate, regular rhythm and + tachycardic Heart Sounds: normal S1, normal S2 and + murmur Extremities: no edema Gastrointestinal (Abdomen): Inspection/Auscultation: normal bowel sounds; abdomen not distended Percussion/Palpation: + abdomen tender and abdomen soft Neurologic: normal touch/pain/proprioception and moves all extremities; no focal motor deficits Lymphatic: no cervical or axillary lymphadenopathy Results & Data Results & Data Vital Signs (Past 12 Hours) Vital Signs Temp Pulse Pulse Pulse Resp BP Pulse Ox 07/08/23 11:34 36.3 C L 68 16 126/83 96 07/08/23 08:00 93 H 07/08/23 07:27 36.5 C 85 17 125/59 L 95 O2 Del Method 07/08/23 11:34 Room Air 07/08/23 08:00 07/08/23 07:27 Room Air Laboratory Results Short CBC 07/08/23 Range/Units 06:02 WBC 11.30 H (4.8-10.8) K/ul Hgb 10.8 L (14.0-18.0) g/dl Hct 31.5 L (42.0-52.0) % Plt Count 497 H (130-400) K/uL Medications Administered Current Inpatient Medications Acetaminophen (Acetaminophen 325 Mg Tab) 650 mg PO Q4H PRN PRN Reason: Pain or Fever Stop: 08/01/23 23:13 Amlodipine Besylate (Amlodipine Besylate 5 Mg Tab) 2.[facility] Stop: 08/02/23 08:59 Last Admin: 07/08/23 07:29 Dose: 2.5 mg Atorvastatin Calcium (Atorvastatin 40 Mg Tab) 80 mg PO [facility] Stop: 08/02/23 08:59 Last Admin: 07/08/23 07:30 Dose: 80 mg Famotidine (Famotidine 20 Mg Tab) 20 mg PO DAILY PRN PRN Reason: Heartburn Stop: 08/01/23 23:13 Last Admin: 07/08/23 07:29 Dose: 20 mg Folic Acid (Folic Acid 1 Mg Tab) 1 mg [facility] [place] Stop: 08/03/23 08:59 Last Admin: 07/08/23 07:30 Dose: 1 mg Promethazine HCl 6.25 mg/ (Sodium Chloride) 50.25 mls @ 201 mls/hr IV Q6H PRN PRN Reason: Nausea And Vomiting Stop: 08/01/23 23:01 Lorazepam 1 mg/ Syringe 1 mls @ 2 mls/min IV Q10M PRN PRN Reason: seizures Stop: 08/02/23 05:53 Metoprolol Succinate (Metoprolol Succ 25mg Ext Rel Tab) 12.5 mg PO [facility] Stop: 08/02/23 08:59 Last Admin: 07/08/23 07:29 Dose: 12.5 mg Multivitamins/Minerals (Cerovite Adv Formula Tab) 1 tab [facility] [place] Stop: 08/03/23 08:59 Last Admin: 07/08/23 07:30 Dose: 1 tab Olanzapine (Olanzapine 5 Mg Tablet) 5 mg PO BID PRN PRN Reason: Agitation Stop: 08/07/23 20:59 Last Admin: 07/08/23 11:29 Dose: 5 mg Pantoprazole Sodium (Pantoprazole 40 Mg Tab) 40 mg PO [facility] Stop: 08/02/23 08:59 Last Admin: 07/08/23 07:30 Dose: 40 mg Sodium Chloride (Sodium Chloride 1 Gm Tablet) 1 gm PO [facility] Stop: 08/03/23 08:59 Last Admin: 07/08/23 07:29 Dose: 1 gm Thiamine HCl (Thiamine Hcl 100 Mg Tab) 100 mg [facility] [place] Stop: 08/03/23 08:59 Last Admin: 07/08/23 07:30 Dose: 100 mg
--- NOTE | 2023-07-09 13:35 | Hospitalist Progress Note ---
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 Sustained some back pain and bruising from falling. No head trauma. Today the patient with increasing weakness and sleepiness and unable to get from bed on the day of arrival. No home narcotic medication as per daughter. Patient's daughter feels she cannot care for her father anymore given advancing dementia. He was brought to the ER for evaluation. He is being managed for the following: Advancing dementia Inability to take care at home due to advanced dementia No acute delirium Remains stable to be transferred Has had agitation last night and required oral Zyprexa Seems to be better this morning and will continue with oral Zyprexa as needed twice daily Seems to be more confused recently with his rotation Needs assistance with ADLs Rule out seizure given myoclonic jerks: Noted at the ED. No more episodes of myoclonic jerks EEG: abn drowsy EEG d/t generalized background slowing. No epileptiform activity is seen. Remains medically stable Neuro consult, appreciate recs Remains stable without any myoclonus Mechanical fall Retroperitoneal hematoma General surgery consult Re: Traumatic retroperitoneal bleed - repeat ct abd/pelvis in 3 months Repeat imaging if HnH drops or hemodynamic instability. H&H has been stable. Will need PT and OT evaluation and placement in a memory care unit Awaiting placement Will need [address] of the abdomen to make sure hematoma is resolved Awaiting placement Likely metabolic encephalopathy: noted to be obtunded at presentation. No signs and or symptoms of infection CT scans remained unremarkable as mentioned below Back to his baseline Patient coming in with inability of being taken care of at home and fall. Admitting labs: Hemoglobin slightly low at 9.4 at presentation, WBC WNL, VBG WNL, electrolytes at his baseline, LFT WNL, UA not suggestive of UTI Admitting imagings: CXR with no new acute findings. CT head with no new acute intracranial abnormality. Lumbar spine CT with no new acute fracture. Advanced degenerative spondylosis noted. Abdomen pelvis CT with a small left retroperitoneal hematoma 3 x 1.5 cm. Follow-up repeat CT scan in 3 months time to evaluate for resolution. Aspirin on hold. Fall precaution. PT/OT. Acute on chr anemia: baseline Hb around 11, Hb at presentation 9.8. aspirin on hold, monitor HnH. Follow H&H, transfuse PRBC if hemoglobin less than 8 and or for symptomatic anemia. H&H has been stable. Other chronic medical conditions: Continue with/resume home meds as and when able. History CAD sp stenting, history PVD, CVA - aspirin on hold. Valvular heart disease (mild MR/TR/AR/, TTE 2022) HTN, c/t monitor, use prn meds if needed. 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 Prediabetes Dementia, baseline confusion as per daughter. past tobacco abuse Pulmonary mass, h/o. f/u pulm and onco as prior. Social service re: discharge planning, possible placement DVT prophylaxis. SCDs Re: Retroperitoneal bleed DNR/DNI Patient daughter Ms. Teressa Chavira, contact #[phone]. Text document was generated using [employer] voice recognition software. It may contain grammatical or spelling errors. Kindly contact undersigned for clarification of any documentation item in question. Discussed with the patient in detail Discussed with the family members and answered all of their questions He will be discharged whenever he is approved to go to a facility Discussed with the family members in detail on 07/07/2023 and answered all of their questions Admission and Anticipated Discharge Date Admission Date: July 02, 2023 Subjective 07/06/2023 The patient was seen and examined in medical telemetry unit He remains stable and remains minimally communicative Denies any symptoms and not in any distress 07/07/2023 The patient was seen and examined in medical telemetry unit in presence of the family members He remains stable without any acute confusion Discussed with the family members in detail and answered all of their questions He has been waiting to be transferred to a facility 07/08/2023 The patient was seen and examined in medical telemetry unit He has been coming in and out of bed quite frequently and required oral Zyprexa last night He has been feeling better this morning but is still is pleasantly confused Oral Zyprexa has been ordered as needed 07/09/2023 The patient was seen and examined in medical telemetry unit He has been stable but remains confused Has been trying to come out of bed and does not want to keep the monitor in place Review of Systems Review of Systems: Could not be obtained secondary to dementia state Physical Exam Physical Exam: Lying in bed without any apparent distress Constitutional: + ill appearing and average body habitus Eyes: PERRL, conjunctivae normal, anicteric sclerae ENMT: external ear and nose normal, oropharynx normal Neck: trachea midline, no thyromegaly Respiratory: no respiratory distress Auscultation: lungs clear to auscultation bilaterally Cardiovascular: Rate/Rhythm: regular rate, regular rhythm and + tachycardic Heart Sounds: normal S1, normal S2 and + murmur Extremities: no edema Gastrointestinal (Abdomen): Inspection/Auscultation: normal bowel sounds; abdomen not distended Percussion/Palpation: + abdomen tender and abdomen soft Neurologic: normal touch/pain/proprioception and moves all extremities; no focal motor deficits Lymphatic: no cervical or axillary lymphadenopathy Results & Data Results & Data Vital Signs (Past 12 Hours) Vital Signs Temp Pulse Pulse Resp BP Pulse Ox O2 Del Method 07/09/23 10:46 36.8 C 77 16 115/79 97 Room Air 07/09/23 08:31 78 07/09/23 07:30 36.8 C 67 18 134/81 94 Room Air 07/09/23 03:00 36.5 C 75 18 118/66 98 Room Air Medications Administered Current Inpatient Medications Acetaminophen (Acetaminophen 325 Mg Tab) 650 mg PO Q4H PRN PRN Reason: Pain or Fever Stop: 08/01/23 23:13 Amlodipine Besylate (Amlodipine Besylate 5 Mg Tab) 2.5 mg PO QAM [facility] Stop: 08/02/23 08:59 Last Admin: 07/09/23 10:10 Dose: 2.5 mg Atorvastatin Calcium (Atorvastatin 40 Mg Tab) 80 mg PO QAM [facility] Stop: 08/02/23 08:59 Last Admin: 07/09/23 10:10 Dose: 80 mg Famotidine (Famotidine 20 Mg Tab) 20 mg PO DAILY PRN PRN Reason: Heartburn Stop: 08/01/23 23:13 Last Admin: 07/08/23 07:29 Dose: 20 mg Folic Acid (Folic Acid 1 Mg Tab) [facility] Stop: 08/03/23 08:59 Last Admin: 07/09/23 10:10 Dose: 1 mg Promethazine HCl 6.25 mg/ (Sodium Chloride) 50.25 mls @ 201 mls/hr IV Q6H PRN PRN Reason: Nausea And Vomiting Stop: 08/01/23 23:01 Lorazepam 1 mg/ Syringe 1 mls @ 2 mls/min IV Q10M PRN PRN Reason: seizures Stop: 08/02/23 05:53 Metoprolol Succinate (Metoprolol Succ 25mg Ext Rel Tab) 12.5 mg PO [facility] Stop: 08/02/23 08:59 Last Admin: 07/09/23 10:10 Dose: 12.5 mg Multivitamins/Minerals (Cerovite Adv Formula Tab) 1 tab PO [facility] Stop: 08/03/23 08:59 Last Admin: 07/09/23 10:10 Dose: 1 tab Olanzapine (Olanzapine 5 Mg Tablet) 5 mg PO BID PRN PRN Reason: Agitation Stop: 08/07/23 20:59 Last Admin: 07/08/23 11:29 Dose: 5 mg Pantoprazole Sodium (Pantoprazole 40 Mg Tab) 40 mg PO [facility] Stop: 08/02/23 08:59 Last Admin: 07/09/23 10:11 Dose: 40 mg Sodium Chloride (Sodium Chloride 1 Gm Tablet) 1 gm PO [facility] Stop: 08/03/23 08:59 Last Admin: 07/09/23 10:11 Dose: 1 gm Thiamine HCl (Thiamine Hcl 100 Mg Tab) 100 mg PO [facility] Stop: 08/03/23 08:59 Last Admin: 07/09/23 10:10 Dose: 100 mg
--- NOTE | 2023-07-10 13:36 | Hospitalist Progress Note ---
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 Sustained some back pain and bruising from falling. No head trauma. Today the patient with increasing weakness and sleepiness and unable to get from bed on the day of arrival. No home narcotic medication as per daughter. Patient's daughter feels she cannot care for her father anymore given advancing dementia. He was brought to the ER for evaluation. He is being managed for the following: Advancing dementia Inability to take care at home due to advanced dementia No acute delirium Remains stable to be transferred Has had agitation last night and required oral Zyprexa Seems to be better this morning and will continue with oral Zyprexa as needed twice daily Seems to be more confused recently with his rotation Needs assistance with ADLs No more agitation and did not require any more oral Zyprexa Has been eating and drinking reasonably Rule out seizure given myoclonic jerks: Noted at the ED. No more episodes of myoclonic jerks EEG: abn drowsy EEG d/t generalized background slowing. No epileptiform activity is seen. Remains medically stable Neuro consult, appreciate recs Remains stable without any myoclonus Mechanical fall Retroperitoneal hematoma General surgery consult Re: Traumatic retroperitoneal bleed - repeat ct abd/pelvis in 3 months Repeat imaging if HnH drops or hemodynamic instability. H&H has been stable. Will need PT and OT evaluation and placement in a memory care unit Awaiting placement Will need [address] of the abdomen to make sure hematoma is resolved Awaiting placement Likely metabolic encephalopathy: noted to be obtunded at presentation. No signs and or symptoms of infection CT scans remained unremarkable as mentioned below Back to his baseline Patient coming in with inability of being taken care of at home and fall. Admitting labs: Hemoglobin slightly low at 9.4 at presentation, WBC WNL, VBG WNL, electrolytes at his baseline, LFT WNL, UA not suggestive of UTI Admitting imagings: CXR with no new acute findings. CT head with no new acute intracranial abnormality. Lumbar spine CT with no new acute fracture. Advanced degenerative spondylosis noted. Abdomen pelvis CT with a small left retroperitoneal hematoma 3 x 1.5 cm. Follow-up repeat CT scan in 3 months time to evaluate for resolution. Aspirin on hold. Fall precaution. PT/OT. Acute on chr anemia: baseline Hb around 11, Hb at presentation 9.8. aspirin on hold, monitor HnH. Follow H&H, transfuse PRBC if hemoglobin less than 8 and or for symptomatic anemia. H&H has been stable. Other chronic medical conditions: Continue with/resume home meds as and when able. History CAD sp stenting, history PVD, CVA - aspirin on hold. Valvular heart disease (mild MR/TR/AR/, TTE 2022) HTN, c/t monitor, use prn meds if needed. 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 Prediabetes Dementia, baseline confusion as per daughter. past tobacco abuse Pulmonary mass, h/o. f/u pulm and onco as prior. Social service re: discharge planning, possible placement DVT prophylaxis. SCDs Re: Retroperitoneal bleed DNR/DNI Patient daughter Ms. Teressa Chavira, contact #[phone]. Text document was generated using [employer] voice recognition software. It may contain grammatical or spelling errors. Kindly contact undersigned for clarification of any documentation item in question. Discussed with the patient in detail Discussed with the family members and answered all of their questions He will be discharged whenever he is approved to go to a facility Discussed with the family members in detail on 07/07/2023 and answered all of their questions Admission and Anticipated Discharge Date Admission Date: July 02, 2023 Subjective 07/06/2023 The patient was seen and examined in medical telemetry unit He remains stable and remains minimally communicative Denies any symptoms and not in any distress 07/07/2023 The patient was seen and examined in medical telemetry unit in presence of the family members He remains stable without any acute confusion Discussed with the family members in detail and answered all of their questions He has been waiting to be transferred to a facility 07/08/2023 The patient was seen and examined in medical telemetry unit He has been coming in and out of bed quite frequently and required oral Zyprexa last night He has been feeling better this morning but is still is pleasantly confused Oral Zyprexa has been ordered as needed 07/09/2023 The patient was seen and examined in medical telemetry unit He has been stable but remains confused Has been trying to come out of bed and does not want to keep the monitor in place 07/10/2023 The patient was seen and examined in medical telemetry unit He has been stable Remains pleasantly confused Requires assistance with ADL S Has been waiting for placement Review of Systems Review of Systems: Could not be obtained secondary to dementia state Physical Exam Physical Exam: Lying in bed without any apparent distress Constitutional: + ill appearing and average body habitus Eyes: PERRL, conjunctivae normal, anicteric sclerae ENMT: external ear and nose normal, oropharynx normal Neck: trachea midline, no thyromegaly Respiratory: no respiratory distress Auscultation: lungs clear to auscultation bilaterally Cardiovascular: Rate/Rhythm: regular rate, regular rhythm and + tachycardic Heart Sounds: normal S1, normal S2 and + murmur Extremities: no edema Gastrointestinal (Abdomen): Inspection/Auscultation: normal bowel sounds; abdomen not distended Percussion/Palpation: + abdomen tender and abdomen soft Neurologic: normal touch/pain/proprioception and moves all extremities; no focal motor deficits Lymphatic: no cervical or axillary lymphadenopathy Results & Data Results & Data Vital Signs (Past 12 Hours) Vital Signs Temp Pulse Pulse Resp BP BP Pulse Ox 07/10/23 12:06 07/10/23 11:33 36.4 C L 72 17 102/62 96 07/10/23 09:15 80 07/10/23 07:47 36.5 C 79 17 138/76 94 07/10/23 03:53 36.3 C L 78 16 170/89 H 94 O2 Del Method 07/10/23 12:06 Room Air 07/10/23 11:33 Room Air 07/10/23 09:15 07/10/23 07:47 Room Air 07/10/23 03:53 Room Air Medications Administered Current Inpatient Medications Acetaminophen (Acetaminophen 325 Mg Tab) 650 mg PO Q4H PRN PRN Reason: Pain or Fever Stop: 08/01/23 23:13 Amlodipine Besylate (Amlodipine Besylate 5 Mg Tab) 2.5 mg PO [facility] Stop: 08/02/23 08:59 Last Admin: 07/10/23 08:47 Dose: 2.5 mg Atorvastatin Calcium (Atorvastatin 40 Mg Tab) 80 mg PO [facility] Stop: 08/02/23 08:59 Last Admin: 07/10/23 08:47 Dose: 80 mg Famotidine (Famotidine 20 Mg Tab) 20 mg PO DAILY PRN PRN Reason: Heartburn Stop: 08/01/23 23:13 Last Admin: 07/08/23 07:29 Dose: 20 mg Folic Acid (Folic Acid 1 Mg Tab) 1 mg PO [facility] Stop: 08/03/23 08:59 Last Admin: 07/10/23 08:48 Dose: 1 mg Promethazine HCl 6.25 mg/ (Sodium Chloride) 50.25 mls @ 201 mls/hr IV Q6H PRN PRN Reason: Nausea And Vomiting Stop: 08/01/23 23:01 Lorazepam 1 mg/ Syringe 1 mls @ 2 mls/min IV Q10M PRN PRN Reason: seizures Stop: 08/02/23 05:53 Metoprolol Succinate (Metoprolol Succ 25mg Ext Rel Tab) 12.5 mg PO [facility] Stop: 08/02/23 08:59 Last Admin: 07/10/23 08:48 Dose: 12.5 mg Multivitamins/Minerals (Cerovite Adv Formula Tab) 1 tab PO [facility] Stop: 08/03/23 08:59 Last Admin: 07/10/23 08:48 Dose: 1 tab Olanzapine (Olanzapine 5 Mg Tablet) 5 mg PO BID PRN PRN Reason: Agitation Stop: 08/07/23 20:59 Last Admin: 07/08/23 11:29 Dose: 5 mg Pantoprazole Sodium (Pantoprazole 40 Mg Tab) 40 mg PO [facility] Stop: 08/02/23 08:59 Last Admin: 07/10/23 08:48 Dose: 40 mg Sodium Chloride (Sodium Chloride 1 Gm Tablet) 1 gm PO [facility] Stop: 08/03/23 08:59 Last Admin: 07/10/23 08:48 Dose: 1 gm Thiamine HCl (Thiamine Hcl 100 Mg Tab) 100 mg PO QAM [facility] Stop: 08/03/23 08:59 Last Admin: 07/10/23 08:48 Dose: 100 mg
--- NOTE | 2023-07-11 13:13 | Hospitalist Progress Note ---
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 Sustained some back pain and bruising from falling. No head trauma. Today the patient with increasing weakness and sleepiness and unable to get from bed on the day of arrival. No home narcotic medication as per daughter. Patient's daughter feels she cannot care for her father anymore given advancing dementia. He was brought to the ER for evaluation. He is being managed for the following: Advancing dementia Inability to take care at home due to advanced dementia No acute delirium Remains stable to be transferred Has had agitation last night and required oral Zyprexa Seems to be better this morning and will continue with oral Zyprexa as needed twice daily Seems to be more confused recently with his rotation Needs assistance with ADLs No more agitation and did not require any more oral Zyprexa Has been eating and drinking reasonably No acute issues overnight and remains stable Rule out seizure given myoclonic jerks: Noted at the ED. No more episodes of myoclonic jerks EEG: abn drowsy EEG d/t generalized background slowing. No epileptiform activity is seen. Remains medically stable Neuro consult, appreciate recs Remains stable without any myoclonus Mechanical fall Retroperitoneal hematoma General surgery consult Re: Traumatic retroperitoneal bleed - repeat ct abd/pelvis in 3 months Repeat imaging if HnH drops or hemodynamic instability. H&H has been stable. Will need PT and OT evaluation and placement in a memory care unit Awaiting placement Will need [address] of the abdomen to make sure hematoma is resolved Remains free from any pain Awaiting placement Likely metabolic encephalopathy: noted to be obtunded at presentation. No signs and or symptoms of infection CT scans remained unremarkable as mentioned below Back to his baseline Patient coming in with inability of being taken care of at home and fall. Admitting labs: Hemoglobin slightly low at 9.4 at presentation, WBC WNL, VBG WNL, electrolytes at his baseline, LFT WNL, UA not suggestive of UTI Admitting imagings: CXR with no new acute findings. CT head with no new acute intracranial abnormality. Lumbar spine CT with no new acute fracture. Advanced degenerative spondylosis noted. Abdomen pelvis CT with a small left retroperitoneal hematoma 3 x 1.5 cm. Follow-up repeat CT scan in 3 months time to evaluate for resolution. Aspirin on hold. Fall precaution. PT/OT. Acute on chr anemia: baseline Hb around 11, Hb at presentation 9.8. aspirin on hold, monitor HnH. Follow H&H, transfuse PRBC if hemoglobin less than 8 and or for symptomatic anemia. H&H has been stable. Other chronic medical conditions: Continue with/resume home meds as and when able. History CAD sp stenting, history PVD, CVA - aspirin on hold. Valvular heart disease (mild MR/TR/AR/, TTE 2022) HTN, c/t monitor, use prn meds if needed. 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 Prediabetes Dementia, baseline confusion as per daughter. past tobacco abuse Pulmonary mass, h/o. f/u pulm and onco as prior. Social service re: discharge planning, possible placement DVT prophylaxis. SCDs Re: Retroperitoneal bleed DNR/DNI Patient daughter Ms. Teressa Chavira, contact #[phone]. Text document was generated using [employer] voice recognition software. It may contain grammatical or spelling errors. Kindly contact undersigned for clarification of any documentation item in question. Discussed with the patient in detail Discussed with the family members and answered all of their questions He will be discharged whenever he is approved to go to a facility Discussed with the family members in detail on 07/07/2023 and answered all of their questions Daughter updated-07/11/2023 Admission and Anticipated Discharge Date Admission Date: July 02, 2023 Subjective 07/06/2023 The patient was seen and examined in medical telemetry unit He remains stable and remains minimally communicative Denies any symptoms and not in any distress 07/07/2023 The patient was seen and examined in medical telemetry unit in presence of the family members He remains stable without any acute confusion Discussed with the family members in detail and answered all of their questions He has been waiting to be transferred to a facility 07/08/2023 The patient was seen and examined in medical telemetry unit He has been coming in and out of bed quite frequently and required oral Zyprexa last night He has been feeling better this morning but is still is pleasantly confused Oral Zyprexa has been ordered as needed 07/09/2023 The patient was seen and examined in medical telemetry unit He has been stable but remains confused Has been trying to come out of bed and does not want to keep the monitor in place 07/10/2023 The patient was seen and examined in medical telemetry unit He has been stable Remains pleasantly confused Requires assistance with ADL S Has been waiting for placement 07/11/2023 Patient was seen and examined in medical telemetry unit He has been much better today Pleasantly confused but communicates reasonably Review of Systems Review of Systems: Could not be obtained secondary to dementia state Physical Exam Physical Exam: Lying in bed without any apparent distress Constitutional: + ill appearing and average body habitus Eyes: PERRL, conjunctivae normal, anicteric sclerae ENMT: external ear and nose normal, oropharynx normal Neck: trachea midline, no thyromegaly Respiratory: no respiratory distress Auscultation: lungs clear to auscultation bilaterally Cardiovascular: Rate/Rhythm: regular rate, regular rhythm and + tachycardic Heart Sounds: normal S1, normal S2 and + murmur Extremities: no edema Gastrointestinal (Abdomen): Inspection/Auscultation: normal bowel sounds; abdomen not distended Percussion/Palpation: + abdomen tender and abdomen soft Musculoskeletal: No acute arthritis involving any of the joint Neurologic: normal touch/pain/proprioception and moves all extremities; no f ocal motor deficits Lymphatic: no cervical or axillary lymphadenopathy Results & Data Results & Data Vital Signs (Past 12 Hours) Vital Signs Temp Pulse Pulse Resp BP BP Pulse Ox 07/11/23 11:09 36.4 C L 79 14 132/64 98 07/11/23 10:45 07/11/23 07:27 36.8 C 77 14 108/62 93 07/11/23 07:08 75 07/11/23 03:30 36.8 C 87 16 130/86 91 07/11/23 01:49 88 O2 Del Method 07/11/23 11:09 Room Air 07/11/23 10:45 Room Air 07/11/23 07:27 Room Air 07/11/23 07:08 07/11/23 03:30 Room Air 07/11/23 01:49 Medications Administered Current Inpatient Medications Acetaminophen (Acetaminophen 325 Mg Tab) 650 mg PO Q4H PRN PRN Reason: Pain or Fever Stop: 08/01/23 23:13 Amlodipine Besylate (Amlodipine Besylate 5 Mg Tab) 2.5 mg PO [facility] Stop: 08/02/23 08:59 Last Admin: 07/11/23 08:59 Dose: 2.5 mg Atorvastatin Calcium (Atorvastatin 40 Mg Tab) 80 mg PO [facility] Stop: 08/02/23 08:59 Last Admin: 07/11/23 09:00 Dose: 80 mg Famotidine (Famotidine 20 Mg Tab) 20 mg PO DAILY PRN PRN Reason: Heartburn Stop: 08/01/23 23:13 Last Admin: 07/08/23 07:29 Dose: 20 mg Folic Acid (Folic Acid 1 Mg Tab) 1 mg PO [facility] Stop: 08/03/23 08:59 Last Admin: 07/11/23 09:00 Dose: 1 mg Promethazine HCl 6.25 mg/ (Sodium Chloride) 50.25 mls @ 201 mls/hr IV Q6H PRN PRN Reason: Nausea And Vomiting Stop: 08/01/23 23:01 Lorazepam 1 mg/ Syringe 1 mls @ 2 mls/min IV Q10M PRN PRN Reason: seizures Stop: 08/02/23 05:53 Metoprolol Succinate (Metoprolol Succ 25mg Ext Rel Tab) 12.5 mg PO [facility] Stop: 08/02/23 08:59 Last Admin: 07/11/23 09:00 Dose: 12.5 mg Multivitamins/Minerals (Cerovite Adv Formula Tab) 1 tab PO [facility] Stop: 08/03/23 08:59 Last Admin: 07/10/23 08:48 Dose: 1 tab Olanzapine (Olanzapine 5 Mg Tablet) 5 mg PO BID PRN PRN Reason: Agitation Stop: 08/07/23 20:59 Last Admin: 07/10/23 19:53 Dose: 5 mg Pantoprazole Sodium (Pantoprazole 40 Mg Tab) 40 mg PO [facility] Stop: 08/02/23 08:59 Last Admin: 07/11/23 09:00 Dose: 40 mg Sodium Chloride (Sodium Chloride 1 Gm Tablet) 1 gm PO [facility] Stop: 08/03/23 08:59 Last Admin: 07/11/23 09:01 Dose: 1 gm Thiamine HCl (Thiamine Hcl 100 Mg Tab) 100 mg PO [facility] Stop: 08/03/23 08:59 Last Admin: 07/11/23 09:01 Dose: 100 mg
[2023-07-11] MEDS: MELATONIN 3 MG TAB PO PRN (22:41)
[2023-07-12 07:16] LABS: Basophils # (auto) 0.05 K/uL (0.00-0.20); Basophils % (auto) 0.5 %; Eosinophils # (auto) 0.28 K/uL (0.00-0.50); Eosinophils % (auto) 2.9 %; Hematocrit (blood only) 30.3 % (42.0-52.0); Hemoglobin 10.5 g/dl (14.0-18.0); Immature Granulocytes # (auto) 0.05 K/uL (0.01-0.20); Immature Granulocytes % (auto) 0.5 %; Lymphocytes # (auto) 0.64 K/uL (1.20-3.40); Lymphocytes % (auto) 6.7 %; Mean Corpuscular Hemoglobin 29.2 pg (25.0-34.0); Mean Corpuscular Hgb Conc 34.7 g/dL (32.0-36.0); Mean Corpuscular Volume 84.2 fL (80.0-100.0); Mean Platelet Volume 9.8 fL (9.4-12.4); Monocytes # (auto) 1.07 K/uL (0.11-0.59); Monocytes % (auto) 11.2 %; Neutrophils # (auto) 7.47 K/uL (1.40-6.50); Neutrophils % (auto) 78.2 %; Platelet Count 450 K/uL (130-400); RDW Coefficient of Variation 13.8 % (11.5-14.5); RDW Standard Deviation 42.3 fL (36.4-46.3); White Blood Count 9.56 K/ul (4.8-10.8)
[2023-07-12 07:32] LABS: BUN Creatinine Ratio 26.2 (10-20); Calcium 9.3 mg/dl (8.6-10.3); Creatinine Clr Calc Pharmacy 43.2 ml/min; Est GFR (African American) 72.5 ml/min; Est GFR (Non-African American) 62.5 ml/min; Potassium 4.1 mmol/L (3.5-5.1)
[2023-07-12] MEDS: ASPIRIN 81 MG ECTAB PO SCH (08:51)
--- NOTE | 2023-07-12 16:29 | Hospitalist Progress Note ---
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 Sustained some back pain and bruising from falling. No head trauma. Today the patient with increasing weakness and sleepiness and unable to get from bed on the day of arrival. No home narcotic medication as per daughter. Patient's daughter feels she cannot care for her father anymore given advancing dementia. He was brought to the ER for evaluation. 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 Atrophy, chronic right frontal infarct, and chronic white matter changes. --EEG:This is an abnormal drowsy EEG due to generalized background slowing . No epileptiform acitvity is seen. Inability to take care at home due to advanced dementia Needs assistance with ADLs Intermittently agitated requiring Zyprexa Appreciate neurology input Reorient frequently to minimize delirium Waiting for placement Mechanical fall Retroperitoneal hematoma due to fall --CT ABD:Abnormal high attenuation soft tissue within the left retroperitoneum near the level of the aortic bifurcation measuring 3.0 x 1.5 cm (series 5 image 52). This could represent a small retroperitoneal hematoma or an abnormal lymph node. Consider follow-up CT in 3 months to evaluate for resolution. -- Appreciate surgery input--conservative management, will need repeat CT abdomen as outpatient PT OT, fall precautions Waiting for placement As per prior provider: Likely metabolic encephalopathy: noted to be obtunded at presentation. No signs and or symptoms of infection CT scans remained unremarkable as mentioned below Back to his baseline Acute on chronic anemia Acute blood loss anemia secondary to retroperitoneal hematoma Transfuse PRBCs as needed Hemoglobin stable Monitor Other chronic medical conditions: History CAD sp stenting, history PVD, CVA - on aspirin Valvular heart disease (mild MR/TR/AR/, TTE 2022) HTN: On amlodipine, metoprolol Hyperlipidemia on statin H/O Non-Hodgkin's lymphoma status post radiation (patient refused chemotherapy in the past as per records), patient currently seeing [facility] [place]ologist given 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 Past tobacco abuse Pulmonary mass, h/o. f/u pulm and onco as prior. DVT Px: SCDs Re: Retroperitoneal bleed Code Status DNR/DNI Admission and Anticipated Discharge Date Admission Date: July 02, 2023 Subjective Patient is seen and examined at bedside Poor historian secondary to dementia and decreased hearing Sitting in chair during my encounter No distress on exam Waiting for rehab placement Review of Systems Review of Systems: All systems reviewed & are unremarkable except as noted in Subjective Physical Exam Physical Exam: Physical Exam: Vitals signs as noted above General Appearance:Thin, frail, Elderly, no apparent distress Head: normocephalic, Atraumatic Eyes: normal inspection, EOMI Neck: supple, Trachea midline Respiratory/Chest: Normal breath sounds, CTA, No accessory muscle use Cardiovascular: S1, S2, + murmur Abdomen/GI:Soft, Non tender, Bowel sounds present Extremities/Musculoskeletal:normal inspection, no edema Neurologic/Psych:Alert, awake, +Dementia, grossly no focal neurological deficits, decreased hearing Skin: normal color, warm Results & Data Results & Data Vital Signs (Past 12 Hours) Vital Signs Temp Pulse Pulse Resp BP Pulse Ox O2 Del Method 07/12/23 16:00 77 07/12/23 15:02 36.4 C L 69 15 142/76 H 97 Room Air 07/12/23 11:53 36.1 C L 41 L 15 117/70 95 Room Air 07/12/23 10:01 Room Air 07/12/23 07:40 36.3 C L 77 15 153/87 H 97 Room Air 07/12/23 07:19 65 Laboratory Results Short CBC 07/12/23 Range/Units 06:30 WBC 9.56 (4.8-10.8) K/ul Hgb 10.5 L (14.0-18.0) g/dl Hct 30.3 L (42.0-52.0) % Plt Count 450 H (130-400) K/uL BMP 07/12/23 06:30 Sodium 136 Potassium 4.1 Chloride 103 Carbon Dioxide 25 BUN 28 H Creatinine 1.07 Glucose 108 H Calcium 9.3
[2023-07-13 08:09] LABS: Hematocrit (blood only) 28.8 % (42.0-52.0); Hemoglobin 9.9 g/dl (14.0-18.0); Mean Corpuscular Hemoglobin 28.9 pg (25.0-34.0); Mean Corpuscular Hgb Conc 34.4 g/dL (32.0-36.0); Mean Corpuscular Volume 84.2 fL (80.0-100.0); Mean Platelet Volume 9.9 fL (9.4-12.4); Platelet Count 413 K/uL (130-400); RDW Coefficient of Variation 13.8 % (11.5-14.5); RDW Standard Deviation 42.6 fL (36.4-46.3); Red Blood Count 3.42 M/uL (4.70-6.10); White Blood Count 9.33 K/ul (4.8-10.8)
[2023-07-13 08:24] LABS: BUN Creatinine Ratio 23.3 (10-20); Calcium 9.4 mg/dl (8.6-10.3); Creatinine Clr Calc Pharmacy 44.9 ml/min; Est GFR (African American) 75.9 ml/min; Est GFR (Non-African American) 65.5 ml/min; Potassium 4.5 mmol/L (3.5-5.1)
--- NOTE | 2023-07-13 16:27 | Hospitalist Progress Note ---
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 Sustained some back pain and bruising from falling. No head trauma. Today the patient with increasing weakness and sleepiness and unable to get from bed on the day of arrival. No home narcotic medication as per daughter. Patient's daughter feels she cannot care for her father anymore given advancing dementia. He was brought to the ER for evaluation. 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 Atrophy, chronic right frontal infarct, and chronic white matter changes. --EEG:This is an abnormal drowsy EEG due to generalized background slowing . No epileptiform acitvity is seen. Inability to take care at home due to advanced dementia Needs assistance with ADLs Intermittently agitated requiring Zyprexa Appreciate neurology input Reorient frequently to minimize delirium Waiting for placement Continue current management Offers no new complaints today Case management to help with discharge planning Mechanical fall Retroperitoneal hematoma due to fall --CT ABD:Abnormal high attenuation soft tissue within the left retroperitoneum near the level of the aortic bifurcation measuring 3.0 x 1.5 cm (series 5 image 52). This could represent a small retroperitoneal hematoma or an abnormal lymph node. Consider follow-up CT in 3 months to evaluate for resolution. -- Appreciate surgery input--conservative management, will need repeat CT abdomen as outpatient PT OT, fall precautions Waiting for placement As per prior provider: Likely metabolic encephalopathy: noted to be obtunded at presentation. No signs and or symptoms of infection CT scans remained unremarkable as mentioned below Back to his baseline Acute on chronic anemia Acute blood loss anemia secondary to retroperitoneal hematoma Transfuse PRBCs as needed Hemoglobin stable Monitor Other chronic medical conditions: History CAD sp stenting, history PVD, CVA - on aspirin Valvular heart disease (mild MR/TR/AR/, TTE 2022) HTN: On amlodipine, metoprolol Hyperlipidemia on statin H/O Non-Hodgkin's lymphoma status post radiation (patient refused chemotherapy in the past as per records), patient currently seeing [facility] oncologist given 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 Past tobacco abuse Pulmonary mass, h/o. f/u pulm and onco as prior. DVT Px: SCDs Re: Retroperitoneal bleed Code Status DNR/DNI Admission and Anticipated Discharge Date Admission Date: July 02, 2023 Subjective Patient is seen and examined at bedside Poor historian secondary to dementia and decreased hearing Sitting in chair during my encounter No new complaints Waiting for rehab placement Review of Systems Review of Systems: All systems reviewed & are unremarkable except as noted in Subjective Physical Exam Physical Exam: Physical Exam: Vitals signs as noted above General Appearance:Thin, frail, Elderly, no apparent distress Head: normocephalic, Atraumatic Eyes: normal inspection, EOMI Neck: supple, Trachea midline Respiratory/Chest: Normal breath sounds, CTA, No accessory muscle use Cardiovascular: S1, S2, + murmur Abdomen/GI:Soft, Non tender, Bowel sounds present Extremities/Musculoskeletal:normal inspection, no edema Neurologic/Psych:Alert, awake, +Dementia, grossly no focal neurological deficits, decreased hearing Skin: normal color, warm Results & Data Results & Data Vital Signs (Past 12 Hours) Vital Signs Temp Pulse Pulse Resp BP BP Pulse Ox 07/13/23 15:23 79 07/13/23 11:24 36.2 C L 81 18 120/71 97 07/13/23 09:44 07/13/23 08:14 36.2 C L 75 18 127/67 94 07/13/23 07:06 70 O2 Del Method 07/13/23 15:23 07/13/23 11:24 Room Air 07/13/23 09:44 Room Air 07/13/23 08:14 Room Air 07/13/23 07:06 Laboratory Results Short CBC 07/13/23 Range/Units 07:27 WBC 9.33 (4.8-10.8) K/ul Hgb 9.9 L (14.0-18.0) g/dl Hct 28.8 L (42.0-52.0) % Plt Count 413 H (130-400) K/uL BMP 07/13/23 07:27 Sodium 134 L Potassium 4.5 Chloride 101 Carbon Dioxide 26 BUN 24 H Creatinine 1.03 Glucose 105 H Calcium 9.4
[2023-07-14 07:22] LABS: Hematocrit (blood only) 28.9 % (42.0-52.0)
--- NOTE | 2023-07-14 15:27 | Hospitalist Progress Note ---
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 Sustained some back pain and bruising from falling. No head trauma. Today the patient with increasing weakness and sleepiness and unable to get from bed on the day of arrival. No home narcotic medication as per daughter. Patient's daughter feels she cannot care for her father anymore given advancing dementia. He was brought to the ER for evaluation. 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 Atrophy, chronic right frontal infarct, and chronic white matter changes. --EEG:This is an abnormal drowsy EEG due to generalized background slowing . No epileptiform activity is seen. Inability to take care at home due to advanced dementia Needs assistance with ADLs Intermittently agitated requiring Zyprexa Appreciate neurology input Reorient frequently to minimize delirium Waiting for placement Mechanical fall Retroperitoneal hematoma due to fall --CT ABD:Abnormal high attenuation soft tissue within the left retroperitoneum near the level of the aortic bifurcation measuring 3.0 x 1.5 cm (series 5 image 52). This could represent a small retroperitoneal hematoma or an abnormal lymph node. Consider follow-up CT in 3 months to evaluate for resolution. -- Appreciate surgery input--conservative management, will need repeat CT abdomen as outpatient PT OT, fall precautions As per prior provider: Likely metabolic encephalopathy: noted to be obtunded at presentation. No signs and or symptoms of infection CT scans remained unremarkable as mentioned below Back to his baseline Acute on chronic anemia Acute blood loss anemia secondary to retroperitoneal hematoma Transfuse PRBCs as needed Hemoglobin stable Monitor Other chronic medical conditions: History CAD sp stenting, history PVD, CVA - on aspirin Valvular heart disease (mild MR/TR/AR/, TTE 2022) HTN: On amlodipine, metoprolol--hold amlodipine as BP relatively low. 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 Past tobacco abuse Pulmonary mass, h/o. f/u pulm and onco as prior. DVT Px: SCDs Re: Retroperitoneal bleed Code Status DNR/DNI Admission and Anticipated Discharge Date Admission Date: July 02, 2023 Subjective Patient is seen and examined at bedside Poor historian secondary to dementia and decreased hearing Waiting for rehab placement Offers no new complaints Blood pressure relatively low today Lying in bed comfortably during my encounter Review of Systems Review of Systems: All systems reviewed & are unremarkable except as noted in Subjective Physical Exam Physical Exam: Physical Exam: Vitals signs as noted above General Appearance:Thin, frail, Elderly, no apparent distress Head: normocephalic, Atraumatic Eyes: normal inspection, EOMI Neck: supple, Trachea midline Respiratory/Chest: Normal breath sounds, CTA, No accessory muscle use Cardiovascular: S1, S2, + murmur Abdomen/GI:Soft, Non tender, Bowel sounds present Extremities/Musculoskeletal:normal inspection, no edema Neurologic/Psych:Alert, awake, +Dementia, grossly no focal neurological deficits, decreased hearing Skin: normal color, warm Results & Data Results & Data Vital Signs (Past 12 Hours) Vital Signs Temp Pulse Pulse Resp BP Pulse Ox O2 Del Method 07/14/23 15:23 76 07/14/23 14:57 36.3 C L 91 H 20 101/56 L 95 Room Air 07/14/23 11:43 36.4 C L 72 20 119/73 94 Room Air 07/14/23 11:25 Room Air 07/14/23 07:34 36.4 C L 63 20 120/67 95 Room Air 07/14/23 07:17 69 07/14/23 04:05 36.3 C L 79 18 139/90 95 Room Air Laboratory Results Short CBC 07/14/23 Range/Units 06:48 Hgb 10.0 L (14.0-18.0) g/dl Hct 28.9 L (42.0-52.0) %
[2023-07-15 07:04] LABS: Hematocrit (blood only) 30.3 % (42.0-52.0); Hemoglobin 10.4 g/dl (14.0-18.0)
[2023-07-15 07:30] LABS: Calcium 9.6 mg/dl (8.6-10.3); Potassium 4.3 mmol/L (3.5-5.1)
[2023-07-15 07:36] LABS: BUN Creatinine Ratio 19.8 (10-20); Creatinine Clr Calc Pharmacy 41.6 ml/min; Est GFR (African American) 69.3 ml/min; Est GFR (Non-African American) 59.8 ml/min
--- NOTE | 2023-07-15 14:38 | Hospitalist Progress Note ---
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 Sustained some back pain and bruising from falling. No head trauma. Today the patient with increasing weakness and sleepiness and unable to get from bed on the day of arrival. No home narcotic medication as per daughter. Patient's daughter feels she cannot care for her father anymore given advancing dementia. He was brought to the ER for evaluation. 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 Atrophy, chronic right frontal infarct, and chronic white matter changes. --EEG:This is an abnormal drowsy EEG due to generalized background slowing . No epileptiform activity is seen. Inability to take care at home due to advanced dementia Needs assistance with ADLs Intermittently agitated requiring Zyprexa Appreciate neurology input Reorient frequently to minimize delirium Waiting for placement Continue current management Mechanical fall Retroperitoneal hematoma due to fall --CT ABD:Abnormal high attenuation soft tissue within the left retroperitoneum near the level of the aortic bifurcation measuring 3.0 x 1.5 cm (series 5 image 52). This could represent a small retroperitoneal hematoma or an abnormal lymph node. Consider follow-up CT in 3 months to evaluate for resolution. -- Appreciate surgery input--conservative management, will need repeat CT abdomen as outpatient PT OT, fall precautions As per prior provider: Likely metabolic encephalopathy: noted to be obtunded at presentation. No signs and or symptoms of infection CT scans remained unremarkable as mentioned below Back to his baseline Acute on chronic anemia Acute blood loss anemia secondary to retroperitoneal hematoma Transfuse PRBCs as needed Hemoglobin stable Monitor Other chronic medical conditions: History CAD sp stenting, history PVD, CVA - on aspirin Valvular heart disease (mild MR/TR/AR/, TTE 2022) HTN: On amlodipine, metoprolol--hold amlodipine as BP low. 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 Past tobacco abuse Pulmonary mass, h/o. f/u pulm and onco as prior. DVT Px: SCDs Re: Retroperitoneal bleed Code Status DNR/DNI Admission and Anticipated Discharge Date Admission Date: July 02, 2023 Subjective Patient is seen and examined at bedside Poor historian secondary to dementia and decreased hearing No distress on exam Offers no new complaints Waiting for placement Review of Systems Review of Systems: All systems reviewed & are unremarkable except as noted in Subjective Physical Exam Physical Exam: Physical Exam: Vitals signs as noted above General Appearance:Thin, frail, Elderly, no apparent distress Head: normocephalic, Atraumatic Eyes: normal inspection, EOMI Neck: supple, Trachea midline Respiratory/Chest: Normal breath sounds, CTA, No accessory muscle use Cardiovascular: S1, S2, + murmur Abdomen/GI:Soft, Non tender, Bowel sounds present Extremities/Musculoskeletal:normal inspection, no edema Neurologic/Psych:Alert, awake, +Dementia, grossly no focal neurological deficits, decreased hearing Skin: normal color, warm Results & Data Results & Data Vital Signs (Past 12 Hours) Vital Signs Temp Pulse Pulse Resp BP BP Pulse Ox 07/15/23 13:38 36.3 C L 73 16 96/62 L 96 07/15/23 11:15 36.5 C 76 18 105/66 93 07/15/23 08:15 36.6 C 76 16 105/66 96 07/15/23 08:00 62 07/15/23 04:07 36.4 C L 65 20 129/79 96 O2 Del Method 07/15/23 13:38 Room Air 07/15/23 11:15 Room Air 07/15/23 08:15 Room Air 07/15/23 08:00 07/15/23 04:07 Room Air Laboratory Results Short CBC 07/15/23 Range/Units 06:26 Hgb 10.4 L (14.0-18.0) g/dl Hct 30.3 L (42.0-52.0) % BMP 07/15/23 06:26 Sodium 134 L Potassium 4.3 Chloride 101 Carbon Dioxide 27 BUN 22 Creatinine 1.11 Glucose 100 H Calcium 9.6
[2023-07-15] MEDS ORDERED: OLANZapine 10 MG/2.1 ML SDV IM PRN (19:39)
--- NOTE | 2023-07-16 16:01 | Hospitalist Progress Note ---
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 Sustained some back pain and bruising from falling. No head trauma. Today the patient with increasing weakness and sleepiness and unable to get from bed on the day of arrival. No home narcotic medication as per daughter. Patient's daughter feels she cannot care for her father anymore given advancing dementia. He was brought to the ER for evaluation. 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 Atrophy, chronic right frontal infarct, and chronic white matter changes. --EEG:This is an abnormal drowsy EEG due to generalized background slowing . No epileptiform activity is seen. Inability to take care at home due to advanced dementia Needs assistance with ADLs Intermittently agitated requiring Zyprexa Appreciate neurology input Reorient frequently to minimize delirium Waiting for placement, stable for discharge Case management to help with discharge planning Mechanical fall Retroperitoneal hematoma due to fall --CT ABD:Abnormal high attenuation soft tissue within the left retroperitoneum near the level of the aortic bifurcation measuring 3.0 x 1.5 cm (series 5 image 52). This could represent a small retroperitoneal hematoma or an abnormal lymph node. Consider follow-up CT in 3 months to evaluate for resolution. -- Appreciate surgery input--conservative management, will need repeat CT abdomen as outpatient PT OT, fall precautions Chronic hyponatremia Monitor As per prior provider: Likely metabolic encephalopathy: noted to be obtunded at presentation. No signs and or symptoms of infection CT scans remained unremarkable as mentioned below Back to his baseline Acute on chronic anemia Acute blood loss anemia secondary to retroperitoneal hematoma Transfuse PRBCs as needed Hemoglobin stable Monitor Other chronic medical conditions: History CAD sp stenting, history PVD, CVA - on aspirin Valvular heart disease (mild MR/TR/AR/, TTE 2022) HTN: On amlodipine, metoprolol--hold amlodipine as BP low. 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 Past tobacco abuse Pulmonary mass, h/o. f/u pulm and onco as prior. DVT Px: SCDs Re: Retroperitoneal bleed Code Status DNR/DNI Admission and Anticipated Discharge Date Admission Date: July 02, 2023 Subjective Patient is seen and examined at bedside Poor historian secondary to dementia and decreased hearing No distress on exam Waiting for placement BP stable Afebrile Sodium improved to 134 Review of Systems Review of Systems: Other Physical Exam Physical Exam: Physical Exam: Vitals signs as noted above General Appearance:Thin, frail, Elderly, no apparent distress Head: normocephalic, Atraumatic Eyes: normal inspection, EOMI Neck: supple, Trachea midline Respiratory/Chest: Normal breath sounds, CTA, No accessory muscle use Cardiovascular: S1, S2, + murmur Abdomen/GI:Soft, Non tender, Bowel sounds present Extremities/Musculoskeletal:normal inspection, no edema Neurologic/Psych:Alert, awake, +Dementia, grossly no focal neurological deficits, decreased hearing Skin: normal color, warm
[2023-07-16] MEDS: ACETAMINOPHEN 325 MG TAB PO PRN (19:44)
--- NOTE | 2023-07-17 16:54 | Hospitalist Progress Note ---
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 Sustained some back pain and bruising from falling. No head trauma. Today the patient with increasing weakness and sleepiness and unable to get from bed on the day of arrival. No home narcotic medication as per daughter. Patient's daughter feels she cannot care for her father anymore given advancing dementia. He was brought to the ER for evaluation. 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 Atrophy, chronic right frontal infarct, and chronic white matter changes. --EEG:This is an abnormal drowsy EEG due to generalized background slowing . No epileptiform activity is seen. Inability to take care at home due to advanced dementia Needs assistance with ADLs Intermittently agitated requiring Zyprexa PRN Appreciate neurology input Reorient frequently to minimize delirium Waiting for placement, stable for discharge Case management to help with discharge planning No recent agitation Continue current management Mechanical fall Retroperitoneal hematoma due to fall --CT ABD:Abnormal high attenuation soft tissue within the left retroperitoneum near the level of the aortic bifurcation measuring 3.0 x 1.5 cm (series 5 image 52). This could represent a small retroperitoneal hematoma or an abnormal lymph node. Consider follow-up CT in 3 months to evaluate for resolution. -- Appreciate surgery input--conservative management, will need repeat CT abdomen as outpatient PT OT, fall precautions Chronic hyponatremia Monitor As per prior provider: Likely metabolic encephalopathy: noted to be obtunded at presentation. No signs and or symptoms of infection CT scans remained unremarkable as mentioned below Back to his baseline Acute on chronic anemia Acute blood loss anemia secondary to retroperitoneal hematoma Transfuse PRBCs as needed Hemoglobin stable Monitor Other chronic medical conditions: History CAD sp stenting, history PVD, CVA - on aspirin Valvular heart disease (mild MR/TR/AR/, TTE 2022) HTN: On amlodipine, metoprolol--hold amlodipine as BP low. 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 Past tobacco abuse Pulmonary mass, h/o. f/u pulm and onco as prior. DVT Px: SCDs Re: Retroperitoneal bleed Code Status DNR/DNI Admission and Anticipated Discharge Date Admission Date: July 02, 2023 Subjective Patient is seen and examined at bedside Poor historian secondary to dementia and decreased hearing No distress on exam, lying in bed comfortably during my encounter Waiting for placement Review of Systems Review of Systems: Other Physical Exam Physical Exam: Physical Exam: Vitals signs as noted above General Appearance:Thin, frail, Elderly, no apparent distress Head: normocephalic, Atraumatic Eyes: normal inspection, EOMI Neck: supple, Trachea midline Respiratory/Chest: Normal breath sounds, CTA, No accessory muscle use Cardiovascular: S1, S2, + murmur Abdomen/GI:Soft, Non tender, Bowel sounds present Extremities/Musculoskeletal:normal inspection, no edema Neurologic/Psych:Alert, awake, +Dementia, grossly no focal neurological d eficits, decreased hearing Skin: normal color, warm Results & Data Results & Data Vital Signs (Past 12 Hours) Vital Signs Temp Pulse Resp BP BP Pulse Ox O2 Del Method 07/17/23 14:23 36.8 C 84 16 139/62 96 Room Air 07/17/23 07:50 Room Air 07/17/23 07:33 36.5 C 74 12 101/65 92 Room Air
--- NOTE | 2023-07-18 17:09 | Hospitalist Progress Note ---
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 Sustained some back pain and bruising from falling. No head trauma. Today the patient with increasing weakness and sleepiness and unable to get from bed on the day of arrival. No home narcotic medication as per daughter. Patient's daughter feels she cannot care for her father anymore given advancing dementia. He was brought to the ER for evaluation. 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 Atrophy, chronic right frontal infarct, and chronic white matter changes. --EEG:This is an abnormal drowsy EEG due to generalized background slowing . No epileptiform activity is seen. Inability to take care at home due to advanced dementia Needs assistance with ADLs Intermittently agitated requiring Zyprexa PRN Appreciate neurology input Reorient frequently to minimize delirium Case management to help with discharge planning Waiting for rehab placement Mechanical fall Retroperitoneal hematoma due to fall --CT ABD:Abnormal high attenuation soft tissue within the left retroperitoneum near the level of the aortic bifurcation measuring 3.0 x 1.5 cm (series 5 image 52). This could represent a small retroperitoneal hematoma or an abnormal lymph node. Consider follow-up CT in 3 months to evaluate for resolution. -- Appreciate surgery input--conservative management, will need repeat CT abdomen as outpatient PT OT, fall precautions Chronic hyponatremia Monitor As per prior provider: Likely metabolic encephalopathy: noted to be obtunded at presentation. No signs and or symptoms of infection CT scans remained unremarkable as mentioned below Back to his baseline Acute on chronic anemia Acute blood loss anemia secondary to retroperitoneal hematoma Transfuse PRBCs as needed Hemoglobin stable Monitor Other chronic medical conditions: History CAD sp stenting, history PVD, CVA - on aspirin Valvular heart disease (mild MR/TR/AR/, TTE 2022) HTN: On amlodipine, metoprolol--hold amlodipine as BP low. 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 Past tobacco abuse Pulmonary mass, h/o. f/u pulm and onco as prior. DVT Px: SCDs Re: Retroperitoneal bleed Code Status DNR/DNI Admission and Anticipated Discharge Date Admission Date: July 02, 2023 Subjective Patient is seen and examined at bedside Poor historian secondary to dementia and decreased hearing Denies any chest pain, dyspnea Offers no complaints today Waiting for placement Review of Systems Review of Systems: Other Physical Exam Physical Exam: Physical Exam: Vitals signs as noted above General Appearance:Thin, frail, Elderly, no apparent distress Head: normocephalic, Atraumatic Eyes: normal inspection, EOMI Neck: supple, Trachea midline Respiratory/Chest: Normal breath sounds, CTA, No accessory muscle use Cardiovascular: S1, S2, + murmur Abdomen/GI:Soft, Non tender, Bowel sounds present Extremities/Musculoskeletal:normal inspection, no edema Neurologic/Psych:Alert, awake, +Dementia, grossly no focal neurological deficits, decreased hearing Skin: normal color, warm Results & Data Results & Data Vital Signs (Past 12 Hours) Vital Signs Temp Pulse Resp BP Pulse Ox O2 Del Method 07/18/23 15:05 36.4 C L 65 16 152/83 H 98 Room Air 07/18/23 08:00 Room Air 07/18/23 07:39 37.0 C 71 16 107/70 98 Room Air
[2023-07-18] MEDS: DOCUSATE SODIUM/SENNA 50/8.6MG TAB PO SCH (20:17)
[2023-07-18] MEDS: POLYETHYLENE (MIRALAX) 17 GM PACK PO STA (20:18)
[2023-07-19 08:10] LABS: Hematocrit (blood only) 27.3 % (42.0-52.0); Hemoglobin 9.4 g/dl (14.0-18.0); Mean Corpuscular Hemoglobin 28.7 pg (25.0-34.0); Mean Corpuscular Hgb Conc 34.4 g/dL (32.0-36.0); Mean Corpuscular Volume 83.2 fL (80.0-100.0); Mean Platelet Volume 10.2 fL (9.4-12.4); Platelet Count 353 K/uL (130-400); RDW Coefficient of Variation 14.3 % (11.5-14.5); RDW Standard Deviation 43.7 fL (36.4-46.3); Red Blood Count 3.28 M/uL (4.70-6.10)
[2023-07-19 08:26] LABS: BUN Creatinine Ratio 27.1 (10-20); Calcium 9.5 mg/dl (8.6-10.3); Creatinine Clr Calc Pharmacy 39.2 ml/min; Est GFR (African American) 64.4 ml/min; Est GFR (Non-African American) 55.5 ml/min
--- NOTE | 2023-07-19 15:18 | Hospitalist Progress Note ---
Date of Service July 19, 2023 Assessment & Plan (1) Encephalopathy: Plan: Mr. 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 Sustained some back pain and bruising from falling. No head trauma. Today the patient with increasing weakness and sleepiness and unable to get from bed on the day of arrival. No home narcotic medication as per daughter. Patient's daughter feels she cannot care for her father anymore given advancing dementia. He was brought to the ER for evaluation. 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 Atrophy, chronic right frontal infarct, and chronic white matter changes. --EEG:This is an abnormal drowsy EEG due to generalized background slowing . No epileptiform activity is seen. Inability to take care at home due to advanced dementia Needs assistance with ADLs Intermittently agitated requiring Zyprexa PRN Appreciate neurology input -Evaluated on 07/02, worsening dementia with sleep myoclonus. No further eval warranted Reorient frequently to minimize delirium Case management to help with discharge planning Waiting for rehab placement #Mechanical fall #Retroperitoneal hematoma due to fall --CT ABD:Abnormal high attenuation soft tissue within the left retroperitoneum near the level of the aortic bifurcation measuring 3.0 x 1.5 cm (series 5 image 52). This could represent a small retroperitoneal hematoma or an abnormal lymph node. Consider follow-up CT in 3 months to evaluate for resolution. -- Appreciate surgery input--conservative management, will need repeat CT abdomen as outpatient PT OT, fall precautions #Chronic hyponatremia Monitor, stable As per prior provider: Likely metabolic encephalopathy: noted to be obtunded at presentation. No signs and or symptoms of infection CT scans remained unremarkable as mentioned below Back to his baseline #Acute on chronic anemia #Acute blood loss anemia secondary to retroperitoneal hematoma Transfuse PRBCs as needed Hemoglobin stable Monitor Other chronic medical conditions: History CAD sp stenting, history PVD, CVA - on aspirin Valvular heart disease (mild MR/TR/AR/, TTE 2022) HTN: On amlodipine, metoprolol--hold amlodipine as BP low. 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 Past tobacco abuse Pulmonary mass, h/o. f/u pulm and onco as prior. DVT Px: SCDs Re: Retroperitoneal bleed Code Status DNR/DNI Admission and Anticipated Discharge Date Admission Date: July 02, 2023 Subjective Patient is seen and examined at bedside Poor historian secondary to dementia and decreased hearing Denies any chest pain, dyspnea Offers no complaints today Waiting for placement Physical Exam Constitutional: WD/WN, vitals as above alert to self, otherwise begins to digress in conversation, not always intelligible conversation Cardiovascular: RRR, no murmur, no edema Gastrointestinal (Abdomen): normal bowel sounds, soft, nontender, no hepatosplenomegaly Results & Data Results & Data Vital Signs (Past 12 Hours) Vital Signs Temp Pulse Resp BP Pulse Ox O2 Del Method 07/19/23 15:07 37.0 C 78 18 102/66 95 Room Air 07/19/23 08:00 Room Air 07/19/23 07:36 36.7 C 71 16 111/70 94 Room Air Laboratory Results Short CBC 07/19/23 Range/Units 07:30 WBC 10.00 (4.8-10.8) K/ul Hgb 9.4 L (14.0-18.0) g/dl Hct 27.3 L (42.0-52.0) % Plt Count 353 (130-400) K/uL BMP 07/19/23 07:30 Sodium 136 Potassium 4.0 Chloride 103 Carbon Dioxide 26 BUN 32 H Creatinine 1.18 Glucose 100 H Calcium 9.5 Medications Administered Home Medications Medication Instructions Recorded Confirmed Last Taken nitroglycerin 0.4 mg sublingual 0.4 mg sublingual DIRECTED PRN 06/09/18 07/02/23 Unknown tablet (Nitrostat) Chest Pain atorvastatin 80 mg tablet 80 mg PO QAM #30 tabs 02/07/21 07/02/23 07/02/23 famotidine 20 mg tablet 20 mg PO DAILY PRN Heartburn 03/01/23 07/02/23 Unknown sodium chloride 1,000 mg soluble 1,000 mg PO QAM 03/01/23 07/02/23 07/02/23 tablet aspirin 81 mg tablet,delayed 81 mg PO QAM #30 tabs 06/03/23 07/02/23 07/02/23 release amlodipine 2.5 mg tablet 2.5 mg PO QAM 07/02/23 07/02/23 07/02/23 metoprolol succinate 25 mg 12.5 mg PO QAM 07/02/23 07/02/23 07/02/23 tablet,extended release 24 hr (Toprol XL) multivitamin 1 tab PO QAM 07/02/23 07/02/23 07/02/23 pantoprazole 40 mg tablet,delayed 40 mg PO QAM 07/02/23 07/02/23 07/02/23 release Active Medications Generic Name Dose Route Start Last Admin Trade Name Mark Anthony PRN Reason Stop Dose Admin Acetaminophen 650 mg 07/02/23 23:14 07/17/23 20:01 Acetaminophen 325 Mg Tab PO 08/01/23 23:13 650 mg Q4H PRN Administration Pain or Fever Amlodipine Besylate 2.5 mg 07/03/23 09:00 07/14/23 11:23 Amlodipine Besylate 5 Mg Tab PO 08/02/23 08:59 2.5 mg QAM BHARATH Administration Aspirin 81 mg 07/12/23 09:00 07/19/23 08:00 Aspirin 81 Mg Ectab PO 08/11/23 08:59 81 mg QAM BHARATH Administration Atorvastatin Calcium 80 mg 07/03/23 09:00 07/19/23 07:59 Atorvastatin 40 Mg Tab PO 08/02/23 08:59 80 mg QAM BHARATH Administration Famotidine 20 mg 07/02/23 23:14 07/15/23 08:32 Famotidine 20 Mg Tab PO 08/01/23 23:13 20 mg DAILY PRN Administration Heartburn Folic Acid 1 mg 07/04/23 09:00 07/19/23 08:00 Folic Acid 1 Mg Tab PO 08/03/23 08:59 1 mg QAM BHRAATH Administration Melatonin 3 mg 07/11/23 21:47 07/18/23 20:18 Melatonin 3 Mg Tab PO 08/10/23 21:46 3 mg HS PRN Administration Sleep Metoprolol Succinate 12.5 mg 07/03/23 09:00 07/19/23 08:00 Metoprolol Succ 25mg Ext Rel Tab PO 08/02/23 08:59 12.5 mg QAM BHARATH Administration Multivitamins/Minerals 1 tab 07/04/23 09:00 07/19/23 08:00 Cerovite Adv Formula Tab PO 08/03/23 08:59 1 tab QAM BHARATH Administration Olanzapine 5 mg 07/08/23 09:09 07/19/23 07:59 Olanzapine 5 Mg Tablet PO 08/07/23 20:59 5 mg BID PRN Administration Agitation Pantoprazole Sodium 40 mg 07/03/23 09:00 07/19/23 08:00 Pantoprazole 40 Mg Tab PO 08/02/23 08:59 40 mg QAM BHARATH Administration Senna/Docusate Sodium 1 tab 07/18/23 20:00 07/19/23 07:59 Docusate Sodium/Senna 50/8.6mg Tab PO 08/17/23 19:59 1 tab QAM BHARATH Administration Sodium Chloride 1 gm 07/04/23 09:00 07/19/23 08:00 Sodium Chloride 1 Gm Tablet PO 08/03/23 08:59 1 gm QAM BHARATH Administration Thiamine HCl 100 mg 07/04/23 09:00 07/19/23 08:00 Thiamine Hcl 100 Mg Tab PO 08/03/23 08:59 100 mg QAM BHARATH Administration
[2023-07-19] MEDS: POLYETHYLENE (MIRALAX) 17 GM PACK PO PRN (18:21)
--- NOTE | 2023-07-20 09:55 | Hospitalist Progress Note ---
Date of Service July 20, 2023 Assessment & Plan (1) Encephalopathy: Plan: Mr. Brunner is an 87-year-old male with PMH of CVA, PVD, HTN, HLD, CAD status post PCI LAD in 2000, CKD stage III, CVA, chronic hyponatremia, B-cell lymphoma, thoracic aortic aneurysm, GERD, dementia, chronic anemia [baseline hemoglobin of 11], traumatic left eye blindness, past tobacco abuse presented to the ED 07/01 after a fall at home (the day [employer]) while trying to help his daughter in the backyard. Sustained some back pain and bruising from falling. No head trauma. Today the patient with increasing weakness and sleepiness and unable to get from bed on the day of arrival. No home narcotic medication as per daughter. Patient's daughter feels she cannot care for her father anymore given advancing dementia. He was brought to the ER for evaluation. His labs have remained stable, will trend labs q2ds. Patient remains admitted awaiting for placement. He underwent neuroevaluation who felt decline related to advancing dementia c/b sleep myoclonus. 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 Atrophy, chronic right frontal infarct, and chronic white matter changes. --EEG:This is an abnormal drowsy EEG due to generalized background slowing . No epileptiform activity is seen. Inability to take care at home due to advanced dementia Needs assistance with ADLs Intermittently agitated requiring Zyprexa PRN Appreciate neurology input -Evaluated on 07/02, worsening dementia with sleep myoclonus. No further eval warranted Reorient frequently to minimize delirium Case management to help with discharge planning Waiting for rehab placement #Mechanical fall #Retroperitoneal hematoma due to fall --CT ABD:Abnormal high attenuation soft tissue within the left retroperitoneum near the level of the aortic bifurcation measuring 3.0 x 1.5 cm (series 5 image 52). This could represent a small retroperitoneal hematoma or an abnormal lymph node. Consider follow-up CT in 3 months to evaluate for resolution. 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 No signs and or symptoms of infection CT scans remained unremarkable as mentioned below Back to his baseline #Acute on chronic anemia #Acute blood loss anemia secondary to retroperitoneal hematoma Transfuse PRBCs as needed Hemoglobin stable Monitor Other chronic medical conditions: History CAD sp stenting, history PVD, CVA - on aspirin Valvular heart disease (mild MR/TR/AR/, TTE 2022) HTN: On amlodipine, metoprolol--hold amlodipine as BP low. 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 Past tobacco abuse Pulmonary mass, h/o. f/u pulm and onco as prior. DVT Px: SCDs Re: Retroperitoneal bleed Code Status DNR/DNI Admission and Anticipated Discharge Date Admission Date: July 02, 2023 Subjective Patient is seen and examined at bedside NAEO, sitting in bedside chair. No concerns Physical Exam Constitutional: alert to self Respiratory: normal respiratory effort, lungs clear to auscultation Cardiovascular: RRR, no murmur, no edema Results & Data Results & Data Vital Signs (Past 12 Hours) Vital Signs Temp Pulse Resp BP Pulse Ox O2 Del Method 07/20/23 07:16 36.4 C L 57 L 16 107/67 95 Room Air Medications Administered Home Medications Medication Instructions Recorded Confirmed Last Taken nitroglycerin 0.4 mg sublingual 0.4 mg sublingual DIRECTED PRN 06/09/18 07/02/23 Unknown tablet (Nitrostat) Chest Pain atorvastatin 80 mg tablet 80 mg PO QAM #30 tabs 02/07/21 07/02/23 07/02/23 famotidine 20 mg tablet 20 mg PO DAILY PRN Heartburn 03/01/23 07/02/23 Unknown sodium chloride 1,000 mg soluble 1,000 mg PO QAM 03/01/23 07/02/23 07/02/23 tablet aspirin 81 mg tablet,delayed 81 mg PO QAM #30 tabs 06/03/23 07/02/23 07/02/23 release amlodipine 2.5 mg tablet 2.5 mg PO QAM 07/02/23 07/02/23 07/02/23 metoprolol succinate 25 mg 12.5 mg PO QAM 07/02/23 07/02/23 07/02/23 tablet,extended release 24 hr (Toprol XL) multivitamin 1 tab PO QAM 07/02/23 07/02/23 07/02/23 pantoprazole 40 mg tablet,delayed 40 mg PO QAM 07/02/23 07/02/23 07/02/23 release Active Medications Generic Name Dose Route Start Last Admin Trade Name Freq PRN Reason Stop Dose Admin Acetaminophen 650 mg 07/02/23 23:14 07/20/23 04:54 Acetaminophen 325 Mg Tab PO 08/01/23 23:13 650 mg Q4H PRN Administration Pain or Fever Amlodipine Besylate 2.5 mg 07/03/23 09:00 07/14/23 11:23 Amlodipine Besylate 5 Mg Tab PO 08/02/23 08:59 2.5 mg QAM BHARATH Administration Aspirin 81 mg 07/12/23 09:00 07/20/23 08:05 Aspirin 81 Mg Ectab PO 08/11/23 08:59 81 mg QAM BHARATH Administration Atorvastatin Calcium 80 mg 07/03/23 09:00 07/20/23 08:06 Atorvastatin 40 Mg Tab PO 08/02/23 08:59 80 mg QAM BHARATH Administration Famotidine 20 mg 07/02/23 23:14 07/15/23 08:32 Famotidine 20 Mg Tab PO 08/01/23 23:13 20 mg DAILY PRN Administration Heartburn Folic Acid 1 mg 07/04/23 09:00 07/20/23 08:03 Folic Acid 1 Mg Tab PO 08/03/23 08:59 1 mg QAM BHARATH Administration Melatonin 3 mg 07/11/23 21:47 07/19/23 20:48 Melatonin 3 Mg Tab PO 08/10/23 21:46 3 mg HS PRN Administration Sleep Metoprolol Succinate 12.5 mg 07/03/23 09:00 07/20/23 08:05 Metoprolol Succ 25mg Ext Rel Tab PO 08/02/23 08:59 12.5 mg QAM BHARATH Administration Multivitamins/Minerals 1 tab 07/04/23 09:00 07/20/23 08:03 Cerovite Adv Formula Tab PO 08/03/23 08:59 1 tab QAM BHARATH Administration Olanzapine 5 mg 07/08/23 09:09 07/19/23 20:47 Olanzapine 5 Mg Tablet PO 08/07/23 20:59 5 mg BID PRN Administration Agitation Pantoprazole Sodium 40 mg 07/03/23 09:00 07/20/23 08:05 Pantoprazole 40 Mg Tab PO 08/02/23 08:59 40 mg QAM BHARATH Administration Polyethylene Glycol 17 gm 07/18/23 18:11 07/19/23 18:21 Polyethylene (Miralax) 17 Gm Pack PO 08/22/23 18:10 17 gm DAILY PRN Administration Constipation Senna/Docusate Sodium 1 tab 07/18/23 20:00 07/20/23 08:04 Docusate Sodium/Senna 50/8.6mg Tab PO 08/17/23 19:59 1 tab QAM BHARATH Administration Sodium Chloride 1 gm 07/04/23 09:00 07/20/23 08:03 Sodium Chloride 1 Gm Tablet PO 08/03/23 08:59 1 gm QAM BHARATH Administration Thiamine HCl 100 mg 07/04/23 09:00 07/20/23 08:04 Thiamine Hcl 100 Mg Tab PO 08/03/23 08:59 100 mg QAM BHARATH Administration
[2023-07-20 10:32] LABS: Hematocrit (blood only) 30.6 % (42.0-52.0); Hemoglobin 10.2 g/dl (14.0-18.0); Mean Corpuscular Hemoglobin 28.7 pg (25.0-34.0); Mean Corpuscular Hgb Conc 33.3 g/dL (32.0-36.0); Mean Platelet Volume 10.4 fL (9.4-12.4); Platelet Count 384 K/uL (130-400); RDW Coefficient of Variation 14.6 % (11.5-14.5); Red Blood Count 3.56 M/uL (4.70-6.10); White Blood Count 10.27 K/ul (4.8-10.8)
[2023-07-20 10:39] LABS: Calcium 9.6 mg/dl (8.6-10.3); Magnesium 2.1 mg/dl (1.7-2.4); Potassium 4.5 mmol/L (3.5-5.1)
[2023-07-20 10:45] LABS: Creatinine Clr Calc Pharmacy 37.6 ml/min; Est GFR (African American) 61.2 ml/min; Est GFR (Non-African American) 52.8 ml/min; Phosphorus 3.5 mg/dl (2.5-4.9)
--- NOTE | 2023-07-21 10:14 | Hospitalist Progress Note ---
Date of Service July 21, 2023 Assessment & Plan (1) Encephalopathy: Plan: Mr. 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 Sustained some back pain and bruising from falling. No head trauma. Today the patient with increasing weakness and sleepiness and unable to get from bed on the day of arrival. No home narcotic medication as per daughter. Patient's daughter feels she cannot care for her father anymore given advancing dementia. He was brought to the ER for evaluation. His labs have remained stable, will trend labs q2ds. Patient remains admitted awaiting for placement. He underwent neuroevaluation who felt decline related to advancing dementia c/b sleep myoclonus. Labs tomorrow 07/21. 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 Atrophy, chronic right frontal infarct, and chronic white matter changes. --EEG:This is an abnormal drowsy EEG due to generalized background slowing . No epileptiform activity is seen. Inability to take care at home due to advanced dementia Needs assistance with ADLs Intermittently agitated requiring Zyprexa PRN Appreciate neurology input -Evaluated on 07/02, worsening dementia with sleep myoclonus. No further eval warranted Reorient frequently to minimize delirium Case management to help with discharge planning Waiting for rehab placement #Mechanical fall #Retroperitoneal hematoma due to fall --CT ABD:Abnormal high attenuation soft tissue within the left retroperitoneum near the level of the aortic bifurcation measuring 3.0 x 1.5 cm (series 5 image 52). This could represent a small retroperitoneal hematoma or an abnormal lymph node. Consider follow-up CT in 3 months to evaluate for resolution. --On 07/02 surgery input--conservative management, will need repeat CT abdomen as outpatient PT OT, fall precautions: pending wood room hand placement #Chronic hyponatremia Monitor, stable As per prior provider: Likely metabolic encephalopathy: noted to be obtunded at presentation. No signs and or symptoms of infection CT scans remained unremarkable as mentioned below Back to his baseline #Acute on chronic anemia #Acute blood loss anemia secondary to retroperitoneal hematoma Transfuse PRBCs as needed Hemoglobin stable Monitor Other chronic medical conditions: History CAD sp stenting, history PVD, CVA - on aspirin Valvular heart disease (mild MR/TR/AR/, TTE 2022) HTN: On amlodipine, metoprolol--hold amlodipine as BP low. 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 Past tobacco abuse Pulmonary mass, h/o. f/u pulm and onco as prior. DVT Px: SCDs Re: Retroperitoneal bleed Code Status DNR/DNI Admission and Anticipated Discharge Date Admission Date: July 02, 2023 Subjective NAEO Evaluated at bedside and aided with drinking water Alert to self Physical Exam Constitutional: WD/WN, vitals as above Respiratory: normal respiratory effort, lungs clear to auscultation Cardiovascular: RRR, no murmur, no edema Results & Data Results & Data Vital Signs (Past 12 Hours) Vital Signs Temp Pulse Resp BP Pulse Ox O2 Del Method 07/21/23 07:09 36.8 C 69 16 113/61 95 Room Air Laboratory Results Short CBC 07/20/23 Range/Units 09:16 WBC 10.27 (4.8-10.8) K/ul Hgb 10.2 L (14.0-18.0) g/dl Hct 30.6 L (42.0-52.0) % Plt Count 384 (130-400) K/uL BMP 07/20/23 09:16 Sodium 136 Potassium 4.5 Chloride 105 Carbon Dioxide 21 BUN 32 H Creatinine 1.23 Glucose 128 H Calcium 9.6 Medications Administered Home Medications Medication Instructions Recorded Confirmed Last Taken nitroglycerin 0.4 mg sublingual 0.4 mg sublingual DIRECTED PRN 06/09/18 07/02/23 Unknown tablet (Nitrostat) Chest Pain atorvastatin 80 mg tablet 80 mg PO QAM #30 tabs 02/07/21 07/02/23 07/02/23 famotidine 20 mg tablet 20 mg PO DAILY PRN Heartburn 03/01/23 07/02/23 Unknown sodium chloride 1,000 mg soluble 1,000 mg PO QAM 03/01/23 07/02/23 07/02/23 tablet aspirin 81 mg tablet,delayed 81 mg PO QAM #30 tabs 06/03/23 07/02/23 07/02/23 release amlodipine 2.5 mg tablet 2.5 mg PO QAM 07/02/23 07/02/23 07/02/23 metoprolol succinate 25 mg 12.5 mg PO QAM 07/02/23 07/02/23 07/02/23 tablet,extended release 24 hr (Toprol XL) multivitamin 1 tab PO QAM 07/02/23 07/02/23 07/02/23 pantoprazole 40 mg tablet,delayed 40 mg PO QAM 07/02/23 07/02/23 07/02/23 release Active Medications Generic Name Dose Route Start Last Admin Trade Name Freq PRN Reason Stop Dose Admin Acetaminophen 650 mg 07/02/23 23:14 07/20/23 04:54 Acetaminophen 325 Mg Tab PO 08/01/23 23:13 650 mg Q4H PRN Administration Pain or Fever Amlodipine Besylate 2.5 mg 07/03/23 09:00 07/14/23 11:23 Amlodipine Besylate 5 Mg Tab PO 08/02/23 08:59 2.5 mg QAM BHARATH Administration Aspirin 81 mg 07/12/23 09:00 07/21/23 08:17 Aspirin 81 Mg Ectab PO 08/11/23 08:59 81 mg QAM BHARATH Administration Atorvastatin Calcium 80 mg 07/03/23 09:00 07/21/23 08:17 Atorvastatin 40 Mg Tab PO 08/02/23 08:59 80 mg QAM BHARATH Administration Famotidine 20 mg 07/02/23 23:14 07/15/23 08:32 Famotidine 20 Mg Tab PO 08/01/23 23:13 20 mg DAILY PRN Administration Heartburn Folic Acid 1 mg 07/04/23 09:00 07/21/23 08:16 Folic Acid 1 Mg Tab PO 08/03/23 08:59 1 mg QAM BHARATH Administration Melatonin 3 mg 07/11/23 21:47 07/20/23 20:04 Melatonin 3 Mg Tab PO 08/10/23 21:46 3 mg HS PRN Administration Sleep Metoprolol Succinate 12.5 mg 07/03/23 09:00 07/21/23 08:16 Metoprolol Succ 25mg Ext Rel Tab PO 08/02/23 08:59 12.5 mg QAM BHARATH Administration Multivitamins/Minerals 1 tab 07/04/23 09:00 07/21/23 08:15 Cerovite Adv Formula Tab PO 08/03/23 08:59 1 tab QAM BHARATH Administration Olanzapine 5 mg 07/08/23 09:09 07/20/23 20:04 Olanzapine 5 Mg Tablet PO 08/07/23 20:59 5 mg BID PRN Administration Agitation Pantoprazole Sodium 40 mg 07/03/23 09:00 07/21/23 08:15 Pantoprazole 40 Mg Tab PO 08/02/23 08:59 40 mg QAM BHARATH Administration Polyethylene Glycol 17 gm 07/18/23 18:11 07/19/23 18:21 Polyethylene (Miralax) 17 Gm Pack PO 08/22/23 18:10 17 gm DAILY PRN Administration Constipation Senna/Docusate Sodium 1 tab 07/18/23 20:00 07/21/23 08:16 Docusate Sodium/Senna 50/8.6mg Tab PO 08/17/23 19:59 1 tab QAM BHARATH Administration Sodium Chloride 1 gm 07/04/23 09:00 07/21/23 08:15 Sodium Chloride 1 Gm Tablet PO 08/03/23 08:59 1 gm QAM BHARATH Administration Thiamine HCl 100 mg 07/04/23 09:00 07/21/23 08:15 Thiamine Hcl 100 Mg Tab PO 08/03/23 08:59 100 mg QAM BHARATH Administration
--- NOTE | 2023-07-22 11:02 | Hospitalist Progress Note ---
Date of Service July 22, 2023 Assessment & Plan (1) Encephalopathy: Plan: Mr. 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 Sustained some back pain and bruising from falling. No head trauma. Today the patient with increasing weakness and sleepiness and unable to get from bed on the day of arrival. No home narcotic medication as per daughter. Patient's daughter feels she cannot care for her father anymore given advancing dementia. He was brought to the ER for evaluation. His labs have remained stable, will trend labs q2ds. Patient remains admitted awaiting for placement. He underwent neuroevaluation who felt decline related to advancing dementia c/b sleep myoclonus. Patient otherwise medically stable and awaiting placement. 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 Atrophy, chronic right frontal infarct, and chronic white matter changes. --EEG:This is an abnormal drowsy EEG due to generalized background slowing . No epileptiform activity is seen. Inability to take care at home due to advanced dementia Needs assistance with ADLs Intermittently agitated requiring Zyprexa PRN Appreciate neurology input -Evaluated on 07/02, worsening dementia with sleep myoclonus. No further eval warranted Reorient frequently to minimize delirium Case management to help with discharge planning Waiting for rehab placement #Mechanical fall #Retroperitoneal hematoma due to fall --CT ABD:Abnormal high attenuation soft tissue within the left retroperitoneum near the level of the aortic bifurcation measuring 3.0 x 1.5 cm (series 5 image 52). This could represent a small retroperitoneal hematoma or an abnormal lymph node. Consider follow-up CT in 3 months to evaluate for resolution. --On 07/02 surgery input--conservative management, will need repeat CT abdomen as outpatient PT OT, fall precautions: pending intermediate placement #Chronic hyponatremia Monitor, stable As per prior provider: Likely metabolic encephalopathy: noted to be obtunded at presentation. No signs and or symptoms of infection CT scans remained unremarkable as mentioned below Back to his baseline #Acute on chronic anemia #Acute blood loss anemia secondary to retroperitoneal hematoma Transfuse PRBCs as needed Hemoglobin stable Monitor Other chronic medical conditions: History CAD sp stenting, history PVD, CVA - on aspirin Valvular heart disease (mild MR/TR/AR/, TTE 2022) HTN: On amlodipine, metoprolol--hold amlodipine as BP low. 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 Past tobacco abuse Pulmonary mass, h/o. f/u pulm and onco as prior. DVT Px: SCDs Re: Retroperitoneal bleed Code Status DNR/DNI Admission and Anticipated Discharge Date Admission Date: July 02, 2023 Subjective NAEO Sitting at bedside this am, pleasant Physical Exam Constitutional: alert to self Respiratory: normal respiratory effort, lungs clear to auscultation Cardiovascular: RRR, no murmur, no edema Results & Data Results & Data Vital Signs (Past 12 Hours) Vital Signs Temp Pulse Resp BP Pulse Ox O2 Del Method 07/22/23 07:41 36.5 C 70 16 151/92 H 96 Room Air Medications Administered Home Medications Medication Instructions Recorded Confirmed Last Taken nitroglycerin 0.4 mg sublingual 0.4 mg sublingual DIRECTED PRN 06/09/18 07/02/23 Unknown tablet (Nitrostat) Chest Pain atorvastatin 80 mg tablet 80 mg PO QAM #30 tabs 02/07/21 07/02/23 07/02/23 famotidine 20 mg tablet 20 mg PO DAILY PRN Heartburn 03/01/23 07/02/23 Unknown sodium chloride 1,000 mg soluble 1,000 mg PO QAM 03/01/23 07/02/23 07/02/23 tablet aspirin 81 mg tablet,delayed 81 mg PO QAM #30 tabs 06/03/23 07/02/23 07/02/23 release amlodipine 2.5 mg tablet 2.5 mg PO QAM 07/02/23 07/02/23 07/02/23 metoprolol succinate 25 mg 12.5 mg PO QAM 07/02/23 07/02/23 07/02/23 tablet,extended release 24 hr (Toprol XL) multivitamin 1 tab PO QAM 07/02/23 07/02/23 07/02/23 pantoprazole 40 mg tablet,delayed 40 mg PO QAM 07/02/23 07/02/23 07/02/23 release Active Medications Generic Name Dose Route Start Last Admin Trade Name Freq PRN Reason Stop Dose Admin Acetaminophen 650 mg 07/02/23 23:14 07/20/23 04:54 Acetaminophen 325 Mg Tab PO 08/01/23 23:13 650 mg Q4H PRN Administration Pain or Fever Amlodipine Besylate 2.5 mg 07/03/23 09:00 07/14/23 11:23 Amlodipine Besylate 5 Mg Tab PO 08/02/23 08:59 2.5 mg QAM BHARATH Administration Aspirin 81 mg 07/12/23 09:00 07/22/23 09:03 Aspirin 81 Mg Ectab PO 08/11/23 08:59 81 mg QAM BHARATH Administration Atorvastatin Calcium 80 mg 07/03/23 09:00 07/22/23 09:02 Atorvastatin 40 Mg Tab PO 08/02/23 08:59 80 mg QAM BHARATH Administration Famotidine 20 mg 07/02/23 23:14 07/15/23 08:32 Famotidine 20 Mg Tab PO 08/01/23 23:13 20 mg DAILY PRN Administration Heartburn Folic Acid 1 mg 07/04/23 09:00 07/22/23 09:03 Folic Acid 1 Mg Tab PO 08/03/23 08:59 1 mg QAM BHARATH Administration Melatonin 3 mg 07/11/23 21:47 07/20/23 20:04 Melatonin 3 Mg Tab PO 08/10/23 21:46 3 mg HS PRN Administration Sleep Metoprolol Succinate 12.5 mg 07/03/23 09:00 07/22/23 09:03 Metoprolol Succ 25mg Ext Rel Tab PO 08/02/23 08:59 12.5 mg QAM BHARATH Administration Multivitamins/Minerals 1 tab 07/04/23 09:00 07/22/23 09:03 Cerovite Adv Formula Tab PO 08/03/23 08:59 1 tab QAM BHARATH Administration Olanzapine 5 mg 07/08/23 09:09 07/22/23 09:02 Olanzapine 5 Mg Tablet PO 08/07/23 20:59 5 mg BID PRN Administration Agitation Pantoprazole Sodium 40 mg 07/03/23 09:00 07/22/23 09:03 Pantoprazole 40 Mg Tab PO 08/02/23 08:59 40 mg QAM BHARATH Administration Polyethylene Glycol 17 gm 07/18/23 18:11 07/19/23 18:21 Polyethylene (Miralax) 17 Gm Pack PO 08/22/23 18:10 17 gm DAILY PRN Administration Constipation Senna/Docusate Sodium 1 tab 07/18/23 20:00 07/22/23 09:02 Docusate Sodium/Senna 50/8.6mg Tab PO 08/17/23 19:59 1 tab QAM BHARATH Administration Sodium Chloride 1 gm 07/04/23 09:00 07/22/23 09:02 Sodium Chloride 1 Gm Tablet PO 08/03/23 08:59 1 gm QAM BHARATH Administration Thiamine HCl 100 mg 07/04/23 09:00 07/22/23 09:03 Thiamine Hcl 100 Mg Tab PO 08/03/23 08:59 100 mg QAM BHARATH Administration
[2023-07-22 11:33] LABS: Hematocrit (blood only) 27.9 % (42.0-52.0); Hemoglobin 9.2 g/dl (14.0-18.0); Mean Corpuscular Hemoglobin 28.8 pg (25.0-34.0); Mean Corpuscular Volume 87.2 fL (80.0-100.0); Mean Platelet Volume 10.3 fL (9.4-12.4); Platelet Count 302 K/uL (130-400); RDW Coefficient of Variation 14.6 % (11.5-14.5); RDW Standard Deviation 46.5 fL (36.4-46.3)
[2023-07-22 11:42] LABS: BUN Creatinine Ratio 24.3 (10-20); Calcium 9.5 mg/dl (8.6-10.3); Creatinine Clr Calc Pharmacy 40.2 ml/min; Est GFR (African American) 66.4 ml/min; Est GFR (Non-African American) 57.3 ml/min; Potassium 4.2 mmol/L (3.5-5.1)
--- NOTE | 2023-07-23 10:55 | Hospitalist Progress Note ---
Date of Service July 23, 2023 Assessment & Plan (1) Encephalopathy: Plan: Mr. Brunner is an 87-year-old male with PMH of CVA, PVD, HTN, HLD, CAD status post PCI LAD in 2000, CKD stage III, CVA, chronic hyponatremia, B-cell lymphoma, thoracic aortic aneurysm, GERD, dementia, chronic anemia [baseline hemoglobin of 11], traumatic left eye blindness, past tobacco abuse presented to the ED 07/01 after a fall at home (the day [employer]) while trying to help his daughter in the backyard. Sustained some back pain and bruising from falling. No head trauma. Today the patient with increasing weakness and sleepiness and unable to get from bed on the day of arrival. No home narcotic medication as per daughter. Patient's daughter feels she cannot care for her father anymore given advancing dementia. He was brought to the ER for evaluation. His labs have remained stable, will trend labs q2ds. Patient remains admitted awaiting for placement. He underwent neuroevaluation who felt decline related to advancing dementia c/b sleep myoclonus. Patient otherwise medically stable and awaiting placement. 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 Atrophy, chronic right frontal infarct, and chronic white matter changes. --EEG:This is an abnormal drowsy EEG due to generalized background slowing . No epileptiform activity is seen. Inability to take care at home due to advanced dementia Needs assistance with ADLs Intermittently agitated requiring Zyprexa PRN Appreciate neurology input -Evaluated on 07/02, worsening dementia with sleep myoclonus. No further eval warranted Reorient frequently to minimize delirium Case management to help with discharge planning Waiting for rehab placement #Mechanical fall #Retroperitoneal hematoma due to fall --CT ABD:Abnormal high attenuation soft tissue within the left retroperitoneum near the level of the aortic bifurcation measuring 3.0 x 1.5 cm (series 5 image 52). This could represent a small retroperitoneal hematoma or an abnormal lymph node. Consider follow-up CT in 3 months to evaluate for resolution. --On 07/02 surgery input--conservative management, will need repeat CT abdomen as outpatient PT OT, fall precautions: pending prison placement #Chronic hyponatremia Monitor, stable As per prior provider: Likely metabolic encephalopathy: noted to be obtunded at presentation. No signs and or symptoms of infection CT scans remained unremarkable as mentioned below Back to his baseline #Acute on chronic anemia *stable #Acute blood loss anemia secondary to retroperitoneal hematoma Transfuse PRBCs as needed Hemoglobin stable Monitor, repeat hgb remains ~9 Other chronic medical conditions: History CAD sp stenting, history PVD, CVA - on aspirin Valvular heart disease (mild MR/TR/AR/, TTE 2022) HTN: On amlodipine, metoprolol--hold amlodipine as BP low. 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 Past tobacco abuse Pulmonary mass, h/o. f/u pulm and onco as prior. DVT Px: SCDs Re: Retroperitoneal bleed Code Status DNR/DNI Admission and Anticipated Discharge Date Admission Date: July 02, 2023 Subjective NAEO Pleasantly eating breakfast this morning Physical Exam Constitutional: WD/WN, vitals as above Respiratory: normal respiratory effort, lungs clear to auscultation Cardiovascular: RRR, no murmur, no edema Results & Data Results & Data Vital Signs (Past 12 Hours) Vital Signs Temp Pulse Resp BP Pulse Ox O2 Del Method 07/23/23 07:33 36.6 C 74 16 121/70 95 Room Air Laboratory Results Short CBC 07/22/23 Range/Units 11:10 WBC 7.60 (4.8-10.8) K/ul Hgb 9.2 L (14.0-18.0) g/dl Hct 27.9 L (42.0-52.0) % Plt Count 302 (130-400) K/uL BMP 07/22/23 11:10 Sodium 137 Potassium 4.2 Chloride 105 Carbon Dioxide 26 BUN 28 H Creatinine 1.15 Glucose 99 Calcium 9.5 Medications Administered Home Medications Medication Instructions Recorded Confirmed Last Taken nitroglycerin 0.4 mg sublingual 0.4 mg sublingual DIRECTED PRN 06/09/18 07/02/23 Unknown tablet (Nitrostat) Chest Pain atorvastatin 80 mg tablet 80 mg PO QAM #30 tabs 02/07/21 07/02/23 07/02/23 famotidine 20 mg tablet 20 mg PO DAILY PRN Heartburn 03/01/23 07/02/23 Unknown sodium chloride 1,000 mg soluble 1,000 mg PO QAM 03/01/23 07/02/23 07/02/23 tablet aspirin 81 mg tablet,delayed 81 mg PO QAM #30 tabs 06/03/23 07/02/23 07/02/23 release amlodipine 2.5 mg tablet 2.5 mg PO QAM 07/02/23 07/02/23 07/02/23 metoprolol succinate 25 mg 12.5 mg PO QAM 07/02/23 07/02/23 07/02/23 tablet,extended release 24 hr (Toprol XL) multivitamin 1 tab PO QAM 07/02/23 07/02/23 07/02/23 pantoprazole 40 mg tablet,delayed 40 mg PO QAM 07/02/23 07/02/23 07/02/23 release Active Medications Generic Name Dose Route Start Last Admin Trade Name Freq PRN Reason Stop Dose Admin Acetaminophen 650 mg 07/02/23 23:14 07/20/23 04:54 Acetaminophen 325 Mg Tab PO 08/01/23 23:13 650 mg Q4H PRN Administration Pain or Fever Amlodipine Besylate 2.5 mg 07/03/23 09:00 07/14/23 11:23 Amlodipine Besylate 5 Mg Tab PO 08/02/23 08:59 2.5 mg QAM BHARATH Administration Aspirin 81 mg 07/12/23 09:00 07/23/23 08:36 Aspirin 81 Mg Ectab PO 08/11/23 08:59 81 mg QAM BHARATH Administration Atorvastatin Calcium 80 mg 07/03/23 09:00 07/23/23 08:36 Atorvastatin 40 Mg Tab PO 08/02/23 08:59 80 mg QAM BHARATH Administration Famotidine 20 mg 07/02/23 23:14 07/15/23 08:32 Famotidine 20 Mg Tab PO 08/01/23 23:13 20 mg DAILY PRN Administration Heartburn Folic Acid 1 mg 07/04/23 09:00 07/23/23 08:37 Folic Acid 1 Mg Tab PO 08/03/23 08:59 1 mg QAM BHARATH Administration Melatonin 3 mg 07/11/23 21:47 07/22/23 19:51 Melatonin 3 Mg Tab PO 08/10/23 21:46 3 mg HS PRN Administration Sleep Metoprolol Succinate 12.5 mg 07/03/23 09:00 07/23/23 08:36 Metoprolol Succ 25mg Ext Rel Tab PO 08/02/23 08:59 12.5 mg QAM BHARATH Administration Multivitamins/Minerals 1 tab 07/04/23 09:00 07/23/23 08:36 Cerovite Adv Formula Tab PO 08/03/23 08:59 1 tab QAM BHARATH Administration Olanzapine 5 mg 07/08/23 09:09 07/22/23 09:02 Olanzapine 5 Mg Tablet PO 08/07/23 20:59 5 mg BID PRN Administration Agitation Pantoprazole Sodium 40 mg 07/03/23 09:00 07/23/23 08:37 Pantoprazole 40 Mg Tab PO 08/02/23 08:59 40 mg QAM BHARATH Administration Polyethylene Glycol 17 gm 07/18/23 18:11 07/19/23 18:21 Polyethylene (Miralax) 17 Gm Pack PO 08/22/23 18:10 17 gm DAILY PRN Administration Constipation Senna/Docusate Sodium 1 tab 07/18/23 20:00 07/23/23 08:36 Docusate Sodium/Senna 50/8.6mg Tab PO 08/17/23 19:59 1 tab QAM BHARATH Administration Sodium Chloride 1 gm 07/04/23 09:00 07/23/23 08:36 Sodium Chloride 1 Gm Tablet PO 08/03/23 08:59 1 gm QAM BHARATH Administration Thiamine HCl 100 mg 07/04/23 09:00 07/23/23 08:36 Thiamine Hcl 100 Mg Tab PO 08/03/23 08:59 100 mg QAM BHARATH Administration
--- NOTE | 2023-07-24 14:44 | Hospitalist Progress Note ---
Date of Service July 24, 2023 Assessment & Plan (1) Encephalopathy: Plan: Mr. 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 Sustained some back pain and bruising from falling. No head trauma. Today the patient with increasing weakness and sleepiness and unable to get from bed on the day of arrival. No home narcotic medication as per daughter. Patient's daughter feels she cannot care for her father anymore given advancing dementia. He was brought to the ER for evaluation. His labs have remained stable, will trend labs q2ds. Patient remains admitted awaiting for placement. He underwent neuroevaluation who felt decline related to advancing dementia c/b sleep myoclonus. Patient otherwise medically stable and awaiting placement. Discussion took place on 07/22 with daughter in the evening regarding placement. She states that she would like Hospice at home given her Aunt is willing and able to help care for patient. Working to place with hospice agency and coordinate discharge. 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 Atrophy, chronic right frontal infarct, and chronic white matter changes. --EEG:This is an abnormal drowsy EEG due to generalized background slowing . No epileptiform activity is seen. Inability to take care at home due to advanced dementia Needs assistance with ADLs Intermittently agitated requiring Zyprexa PRN Appreciate neurology input -Evaluated on 07/02, worsening dementia with sleep myoclonus. No further eval warranted Reorient frequently to minimize delirium Case management to help with discharge planning -Plan for home hospice upon discharge #Mechanical fall #Retroperitoneal hematoma due to fall --CT ABD:Abnormal high attenuation soft tissue within the left retroperitoneum near the level of the aortic bifurcation measuring 3.0 x 1.5 cm (series 5 image 52). This could represent a small retroperitoneal hematoma or an abnormal lymph node. Consider follow-up CT in 3 months to evaluate for resolution. --On 07/02 surgery input--conservative management, will need repeat CT abdomen as outpatient PT OT, fall precautions: pending terminal supervisor placement #Chronic hyponatremia Monitor, stable As per prior provider: Likely metabolic encephalopathy: noted to be obtunded at presentation. No signs and or symptoms of infection CT scans remained unremarkable as mentioned below Back to his baseline #Acute on chronic anemia *stable #Acute blood loss anemia secondary to retroperitoneal hematoma Transfuse PRBCs as needed Hemoglobin stable Monitor, repeat hgb remains ~9 Other chronic medical conditions: History CAD sp stenting, history PVD, CVA - on aspirin Valvular heart disease (mild MR/TR/AR/, TTE 2022) HTN: On amlodipine, metoprolol--hold amlodipine as BP low. Monitor BP, IV fluids as needed Hyperlipidemia on statin H/O Non-Hodgkin's lymphoma status post radiation (patient refused chemotherapy in the past as per records), patient currently seeing 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 Past tobacco abuse Pulmonary mass, h/o. f/u pulm and onco as prior. DVT Px: SCDs Re: Retroperitoneal bleed Code Status DNR/DNI Admission and Anticipated Discharge Date Admission Date: July 02, 2023 Subjective NAEO Physical Exam Constitutional: WD/WN, vitals as above Respiratory: normal respiratory effort, lungs clear to auscultation Cardiovascular: RRR, no murmur, no edema Results & Data Results & Data Vital Signs (Past 12 Hours) Vital Signs Temp Pulse Resp BP Pulse Ox O2 Del Method 07/24/23 08:51 Room Air 07/24/23 07:37 36.3 C L 64 16 120/76 95 Room Air
--- NOTE | 2023-07-25 11:11 | Discharge Summary ---
Discharge Summary Date of Service July 25, 2023 Notes For Next Care Provider Medication Changes From Visit Olanzipine 5mg BID prn agitation Admission HPI Per Admitting Provider History obtained from patient, family, and records. Limited history from patient secondary to obtunded state. Medical history significant for CAD status post stenting, CVA, hypertension, hyperlipidemia, PVD, mild AR, dementia, history non-Hodgkin's lymphoma status post radiation (patient refused chemotherapy), prediabetes, chronic hyponatremia, chronic anemia (baseline hemoglobin of 11), traumatic left eye blindness as per records, past tobacco abuse. Recent confinement last month for TIA symptoms. Normal brain MRI. Patient discharged on dual antiplatelet therapy recommendations to complete 3 weeks. Patient fell at home while trying to help his daughter in the backyard. Some back pain and bruising from falling. No head trauma. Patient unable to get up from bed today. Increased weakness and sleepiness. Episodic involuntary shaking noted at home. No home narcotic medications as per daughter. Patient daughter feels she cannot care for father anymore given advancing dementia. Patient brought to the ER for evaluation. Unable to answer questions due to obtunded state. Medical History as above Surgical History : Eye surgery Family History : Leukemia, stroke Personal/Social history : Past tobacco abuse no EtOH intake, retired [employer] employee Admission Exam Per Admitting Provider GENERAL: Obtunded, no respiratory distress, episodic myoclonic jerks SKIN: Pallor, warm HEENT: Pale palpebral conjunctivae, dry buccal mucosa NECK : Supple, no tenderness CHEST : Decreased breath sounds, no tenderness HEART : RRR, no obvious murmurs ABDOMEN: Some distention, no tenderness BACK : Low back tenderness EXTREMITIES : No LE swelling/tenderness, no other conspicuous deformities noted NEUROLOGIC : Obtunded,, no facial asymmetry, gait and stance not assessed Principal Dx & Hospital Course #1 = Principal Diagnosis (1) Encephalopathy: Mr. Brunner is an 87-year-old male with PMH of CVA, PVD, HTN, HLD, CAD status post PCI LAD in 2000, CKD stage III, CVA, chronic hyponatremia, B-cell lymphoma, thoracic aortic aneurysm, GERD, dementia, chronic anemia [baseline hemoglobin of 11], traumatic left eye blindness, past tobacco abuse presented to the ED 07/01 after a fall at home (the day [employer]) while trying to help his daughter in the backyard. Sustained some back pain and bruising from falling. No head trauma. Today the patient with increasing weakness and sleepiness and unable to get from bed on the day of arrival. No home narcotic medication as per daughter. Patient's daughter feels she cannot care for her father anymore given advancing dementia. He was brought to the ER for evaluation. His labs have remained stable, will trend labs q2ds. Patient remains admitted awaiting for placement. He underwent neuro-evaluation who felt decline related to advancing dementia c/b sleep myoclonus. Patient otherwise medically stable and awaiting placement. Discussion took place on 07/22 with daughter in the evening regarding placement. She states that she would like Hospice at home given her Aunt is willing and able to help care for patient. Patient to discharge home with hospice. 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 Atrophy, chronic right frontal infarct, and chronic white matter changes. --EEG:This is an abnormal drowsy EEG due to generalized background slowing . No epileptiform activity is seen. Inability to take care at home due to advanced dementia, however, extended family willing to support Intermittently agitated requiring Zyprexa PRN Appreciate neurology input -Evaluated on 07/02, worsening dementia with sleep myoclonus. No further eval warranted Reorient frequently to minimize delirium Case management to help with discharge planning: -Plan for home hospice #Mechanical fall #Retroperitoneal hematoma due to fall --CT ABD:Abnormal high attenuation soft tissue within the left retroperitoneum near the level of the aortic bifurcation measuring 3.0 x 1.5 cm (series 5 image 52). This could represent a small retroperitoneal hematoma or an abnormal lymph node. Consider follow-up CT in 3 months to evaluate for resolution. --On 07/02 surgery input--conservative management, will need repeat CT abdomen as outpatient PT OT, fall precautions: home hospice #Chronic hyponatremia Monitor, stable As per prior provider: Likely metabolic encephalopathy: noted to be obtunded at presentation. No signs and or symptoms of infection CT scans remained unremarkable as mentioned below stable #Acute on chronic anemia *stable #Acute blood loss anemia secondary to retroperitoneal hematoma Transfuse PRBCs as needed Hemoglobin stable Monitor, repeat hgb remains ~9 Other chronic medical conditions: History CAD sp stenting, history PVD, CVA - on aspirin Valvular heart disease (mild MR/TR/AR/, TTE 2022) HTN: On amlodipine, metoprolol--hold amlodipine as BP low. 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 Past tobacco abuse Pulmonary mass, h/o. f/u pulm and onco as prior. Discharge Exam Constitutional alert to self Respiratory normal respiratory effort, lungs clear to auscultation Cardiovascular RRR, no murmur, no edema Updated Medication List Medication Instructions Recorded Confirmed Type atorvastatin 80 mg tablet 80 mg PO QAM #30 tabs 02/07/21 07/02/23 Rx famotidine 20 mg tablet 20 mg PO DAILY PRN Heartburn 03/01/23 07/02/23 History sodium chloride 1,000 mg soluble 1,000 mg PO QAM 03/01/23 07/02/23 History tablet aspirin 81 mg tablet,delayed 81 mg PO QAM #30 tabs 06/03/23 07/02/23 Rx release metoprolol succinate 25 mg 12.5 mg PO QAM 07/02/23 07/02/23 History tablet,extended release 24 hr (Toprol XL) multivitamin 1 tab PO QAM 07/02/23 07/02/23 History pantoprazole 40 mg tablet,delayed 40 mg PO QAM 07/02/23 07/02/23 History release melatonin 3 mg tablet 3 mg PO HS PRN sleep #30 tabs 07/25/23 Rx olanzapine 5 mg tablet 5 mg PO BID PRN agitation #60 tabs 07/25/23 Rx Hospital Stay Data Consultations 07/02/23 21:45 ED Decision to Admit Stat 07/02/23 23:04 Consult General Surgery Routine 07/03/23 05:46 Consult Neurology Routine 07/03/23 17:48 Consult Palliative Care Routine Diagnostic Imagining Performed 07/02/23 20:35 CT head/brain wo con Stat CT lumbar spine w con Stat 07/02/23 20:36 CT abd pelvis IV con only Stat Pending Results Patient Have Any Pending Studies at Discharge: No Discharge Instructions Given to Patient (Per Discharging Provider) You were admitted after a fall. You were noted to have pain and bruising and found to have a retroperitoneal bleed. You were evaluated by surgery who noted this was stable and no surgical intervention necessary. You were evaluated by neurology who felt the abnormal jerking movements were associated with the advancing dementia. You will be sent home with Olanzapine 5mg two times a day to be taken as needed for agitation. You will also be recommended to take melatonin to help with sleep cycle. Total Time Total Time Spent Total Time Spent (In Minutes): 45
== END 2023-07-25 16:40 | disposition hospice, home (50) | DRG 884 ==
LOC: ED 18:02 → SUATTDRO 22:59 → EDINP 22:59 → 2N 23:15 → 3N 07-15 13:34